=== PATIENT | male | born 1980 | race Caucasian/White ===

== ENCOUNTER 2024-10-12 14:58 | Emergency (ER) | payer OTHER, SELFPAY ==
--- OUTSIDE RECORDS SUMMARY | 2024-08-25 13:14 | XMS_ITS | Encounter Summary ---
Author Organization [facility] Address [address] [id number] Care Team Providers Care Grades 1 Thru 6 Home Teacher Name Role Phone Pcp, No Primary Care Provider Unavailabl e Reason for Visit * Auth/Cert (Routine) Specialty Diagnoses / Procedures Referred By Cyndee brandt Referred To Contact Diagnoses Acute renal failure (ARF) (CMS/HCC) Aaron Manley MD [address] [place] [address] Phone: tel: fax: PAV A Inpatient [address] [place] [address] Referral ID Status Reason Start Date Expiration Date Visits Re quested Visits Authorized [id number] 1 1 Encounter Details Date Type Department Care Team (Late st Contact Info) Description 08/25/2024 1:14 PM EDT 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 1314 In Room 1314 An Start Data 1323 An Induction The patient was reevaluated immediately before moderate or deep sedation use and before anesthesia induction. 1323 Proc Start 1323 Anesthesia Ready 1326 Payam cardioversion 1327 Proc Fin 1328 an stop data 1328 Out of Room 1330 Handoff to Receiving I compl eted my handoff to the receiving clinician during which we: 1. Identified the patient 2. Identified the responsible provider 3. Reviewed the pertinent medical history 4. Discussed the surgical course 5. Reviewed intra-op anesthesia management and issues during anesthesia 6. Set expectations for post-procedure period 7. Allowed opportunity for questions and acknowledgement of understanding. 1333 An Stop Meds Name Total lidocaine 2 % 60 mg propofol (Diprivan) injection 10 mg/mL 7 0 mg lactated Ringer's infusion 0 mL * Agents Name O2 N2O Air N2O Inspired N2O * Blood No blood administrations on file. Lines, Drains, and Airways Type Details Placement Removal Wound 08/11/24; 1151; Mouth 08/11/24 1 151 by Jessica Ortiz, inpatient auditor Cath Double Lumen 08/13/24; 1655; Yes; Chlorhexidine ; Yes; Yes; Injectable; Transillumination; 14.5; 23 cm; 1; Sutured; Tolerated well; X-ray; Right; Tunneled catheter; Jugular; Chest 08/13/24 1655 by Phyllis Mack Wound 08/15/24; 1400; Sacrum 08/15/24 1400 by Kathy Galdamez RN Peripheral IV Placement Date: 07/30/24; Placement Time: 2050; Catheter Size: 20 G; Orientation: Anterior, Right, Upper; Location: Arm; Site Prep: Chlorhexidine ; Local Anesth: None; Technique: Ultrasound guidance; Inserted by: Akin Prabhakar MD; Insertion Attempts: 1; Patient Tolerance: Tolerated well; Removal Date: 09/08/24; Removal Time: 1800; Removal Reason: Per protocol 07/30/242050 by Caren Vidal RN 09/08/24 1800 by Faith Pedersen Peripheral IV Placement Date: 08/01/24; Placement Time: 1456; Catheter Size: 20 G; Orientation: Distal, Left, Posterior; Location: Forearm; Site Prep: Alcohol; Technique: Anatomical landmarks; Inserted by: tania lane; Insertion Attempts: 2; Patient Tolerance: Tolerated well; Removal Date: 09/03/24; Removal Time: 2029; Removal Reason: Per patient/family request 08/01/[address] RN 09/03/242029 by Enoch Noel Male External Urinary Catheter 08/14/24; 1230; No; Moo Soto RN; Yes; External Catheter; 08/29/24; 192908/14/24 1230 by Izzy Soto 08/29/241929 by Kala Comer RN documented in this encounter Social History Tobacco Use Types Packs/Day Years Used Date Smoking Tobacco: Every Day Cigarettes 1 17.7 Started: 2007 Passive Smoke Exposure: Past Smokeless Tobacco: Never Alcohol Use Standard Drinks/Week Comments Defer 0 (1 standard drink = 0.6 oz pur e alcohol) Social Connection and Isolation Panel Answer Date Recorded In a typical week, how many times do you talk on the phone with family, friends, or neighbors? Patient unable to answer 05/07/2024 How often do you get togethe r with friends or relatives? Patient unable to answer 05/07/2024 How often do you attend [facility] or yarsani services? Patient unable to answer 05/07/2024 Do you belong to any clubs o r organizations such as cheondoism groups, unions, fraternal or athletic groups, or school groups? Patient unable to answer 05/07/2024 How often do you attend meet ings of the clubs or organizations you belong to? Patient unable to answer 05/07/2024 Are you , , di vorced, , never , or living with a partner? Patient unable to answer 05/07/2024 AUDIT-C Answer Date Recorded Q1: How often do you have a drink containing alcohol? Patient unable to answer 05/07/2024 Q2: How many drinks containi ng alcohol do you have on a typical day when you are drinking? Patient unable to answer Q3: How often do you have si x or more drinks on one occasion? Patient unable to answer 05/07/2024 Humiliation, Afraid, Rape, and Kick questionnair e Answer Date Recorded Within the last year, have y ou been afraid of your partner or ex-partner? No 07/31/2024 Within the last year, have y ou been humiliated or emotionally abused in other ways by your partner or ex-partner? No Within the last year, have y ou been kicked, hit, slapped, or otherwise physically hurt by your partner or ex-partner? No 07/31/2024 Within the last year, have y ou been raped or forced to have any kind of sexual activity by your partner or ex-partner? No 07/31/2024 Social Connection and Isolation Panel Answer Date Recorded In a typical week, how many times do you talk on the phone with family, friends, or neighbors? Never 07/31/2024 How often do you get together with friends or re latives? Never 07/31/2024 How often do you attend cheondoism or yarsani serv ices? Never 07/31/2024 Do you belong to any clubs o r organizations such as cheondoism groups, unions, fraternal or athletic groups, or school groups? No 07/31/2024 How often do you attend meet ings of the clubs or organizations you belong to? Never 07/31/2024 Are you , , di vorced, , never , or living with a partner? Never 07/31/2024 AUDIT-C Answer Date Recorded Q1: How often do you have a drink containing alcohol? Patient unable to answer 07/31/2024 Q2: How many drinks containi ng alcohol do you have on a typical day when you are drinking? Patient unable to answer Q3: How often do you have si x or more drinks on one occasion? Patient unable to answer 07/31/2024 Overall Financial Resource Strain (CARDIA) Answe r Date Recorded How hard is it for you to pa y for the very basics like food, housing, medical care, and heating? Very hard 07/31/2024 [facility] Occup[facility] ional [facility] - Occupational Stress Questionnaire Answer Date Recorded Do you feel stress - tense, restless, nervous, or anxious, or unable to sleep at night because your mind is troubled all the time - these days? To some extent 07/31/2024 Exercise Vital Sign Answer Date Recorde d On average, how many days pe r week do you engage in moderate to strenuous exercise (like a brisk walk)? 0 days 07/31/2024 On average, how many minutes do you engage in exercise at this level? 0 min 07/31/2024 Hunger Vital Sign Answer Date Recorded Within the past 12 months, y ou worried that your food would run out before you got the money to buy more. Often true 08/01/19 25 Within the past 12 months, t he food you bought just didn't last and you didn't have money to get more. Often true 07/31/2024 PRAPARE - Transportation Answer Date Re corded In the past 12 months, has l ack of transportation kept you from medical appointments or from getting medications? Yes 07/07 In the past 12 months, has l ack of transportation kept you from meetings, work, or from getting things needed for daily living? Yes 07/31/2024 Housing Stability Vital Sign Answer Philippe e Recorded Unable to Pay for Housing in the Last Year Not o n file 07/31/2024 Number of Times Moved in the Last Year Not on fi le 07/31/2024 At any time in the past 12 m [facility], were you homeless or living in a [place] [facility] [place] facility (including now)? Yes 07/31/2024 CAGE ASSESSMENT Answer Date Recorded Cage unable to access Not on file 03/16/2022 Cage max number of drinks Not on file 2022 Cage Beverages a week Not on file 03/16/2022 Have you ever felt you should CUT down on your d rinking? 0 03/16/2022 Have you been ANNOYED by people criticizing your drinking? 0 03/16/2022 Have you felt GUILTY about your drinking? 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 0 03/16/2022 CAGE Questionnaire Score 0 023 Utilities Answer Date Recorded In the past 12 months has th e electric, gas, oil, or water company threatened to shut off services in your home? No 07/31/2024 Sex and Gender Information Value Date Recorded Sex Assigned at Not on file Legal Sex Male 7:46 PM EDT Gender Identity Not on file Sexual Orientation Not on file documented as of this encounter Functional Status * Calculated C-SSRS Risk Score (Lifetime/Recent) Answer Date of Assessment Author No Risk Indicated 08/29/2024 8:00 AM EDT Migel Iqbal RN * Question Answer Date of Assessment Author 1. Wish to be (Past 1 Month) No 08/29/2024 8:00 AM EDT Sruthi Anaya RN 2. Non-Specific Active Suicidal Thoughts (Past 1 Month) No 08/29/2024 8:00 AM EDT Sruthi Anaya RN 6. Suicidal Behavior (Lifetime) No 08/29/2024 8:00 AM EDT Sruthi Anaya RN documented as of this encounter Miscellaneous Notes * Anesthesia Postprocedure Evaluation - Henrique Joe CRNA, DNP - 08/25/2024 1:33 PM EDT Patient: Noe Payne Anesthesia Type: general Vitals Value Taken Time BP 107/86 08/25/24 13:30 Temp 37.6 08/25/24 13:33 Pulse 72 08/25/24 13:32 Resp 14 08/25/24 13:33 SpO2 100 % 08/25/24 13:32 Vitals shown include unfiled device data. Anesthesia Post Evaluation Patient location during evaluation: PACU Patient participation: complete - patient participated Level of consciousness: awake Pain management: adequate (pain score 0-3) Airway patency: natural airway Cardiovascular status: acceptable, hemodynamically stable and blood pressure returned to baseline Respiratory status: acceptable, nasal cannula, spontaneous ventilation and unassisted Hydration status: acceptable Nausea/Vomiting: No There were no known notable events for this encounter. * Anesthesia Preprocedure Evaluation - Naveen Saenz MD - 08/25/2024 11:35 AM EDT No anesthesia staff entered. Patient: Noe Ellistcher HPI Noe Payne is a 44 y.o. male with body mass index is 30.24 kg/m??. w/ Atrial flutter now forCardioversion (N/A) Procedure Information Date/Time: 08/25/24 1155 Procedure: Cardioversion - to be done in lab with ANS Location: [facility] / [facility] Providers: Daniel Parsons MD IVDU, + hep C, decompensated cirrhosis, ESRD on HD, HFrEF (08/21 Echo with EF 23% and severe TR) Relevant Problems Cardio (+) Atrial flutter with rapid ventricular response (CMS/HCC) (+) Dyspnea (+) Hypertensive emergency GI (+) Ileus (CMS/HCC) /Renal (+) Acute renal failure (ARF) (CMS/HCC) (+) ESRD (end stage renal disease) (CMS/HCC) (+) Hepatitis C Pulmonary (+) Mycoplasma pneumonia ALLERGIES Allergies[1] NPO STATUS Date of Last Liquid: 08/11/24 Date of Last Solid: 08/11/24 Past Medical History[2] AIRWAY HISTORY Airway Detailed Review Displaying the 20 most recent records Date Difficult Airway Blade Size ETT Size C-L Class Final Type Intubation Method 05/15/24 No 4 7.5 grade I - full view of glottis endotracheal airway direct laryngoscopy MEDICATIONS Outpatient Current Outpatient Medications Medication Instructions naloxone (NARCAN) 4 mg, Nasal, As needed, Call 911. Give 4 mg (1 spray) into one nostril. Repeat every 2-3 minutes as needed, alternating nostrils, until medical assistance arrives. Scheduled Current Scheduled Medications[3] PRNs Current PRN Medications[4] SURGICAL HX: Surgical History[5] SOCIAL HX: Social History[6] OBJECTIVE DATA LABS Lab Results Component Value Date WBC 9.26 08/24/2024 HGB 8.8 (L) 08/24/2024 HCT 28.3 (L) 08/24/2024 MCV 88 08/24/2024 PLT 304 08/24/2024 Lab Results Component Value Date CALCIUM 7.7 (L) 08/24/2024 BUN 32 (H) 08/24/2024 CREATININE 4.10 (H) 08/24/2024 BCR 8 08/24/2024 NA 131 (L) 08/24/2024 K 4.6 08/24/2024 CL 98 08/24/2024 CO2 24 08/24/2024 Type and Screen No results found for: ABO Results from last 7 days Lab Units 08/23/24 0816 INR 1.5* Lab Results Component Value Date HGBA1C 5.3 07/31/2024 Lab Results Component Value Date PGLU 132 (H) 08/25/2024 GLUCOSE 99 08/24/2024 ABG Lab Results Component Value Date PHART 7.40 08/03/2024 KVC9ULL 31 (L) 08/03/2024 PO2ART 159 (H) 08/03/2024 SO2ART 99 (H) 08/03/2024 BEART -5.0 (L) 08/03/2024 DJD5QLE 25 08/04/2024 HCTART 23.0 (L) 08/03/2024 SODIUMART 135 (L) 08/03/2024 POTASSIUMART 3.9 08/03/2024 POCTCL 104 08/03/2024 POCGLU 103 (H) 08/03/2024 IONCALART 4.0 (L) 08/03/2024 LACTATE 0.7 08/04/2024 Lab Results Component Value Date PH 7.39 08/04/2024 PCO2 41 08/04/2024 PO2 141 (H) 08/04/2024 G1HILHVF 100 (H) 08/04/2024 BASEEXC -0.4 08/04/2024 HCTSYR 25.7 (L) 08/17/2024 KSYR 4.6 08/17/2024 CLSYR 97 08/17/2024 GLUSYR 91 08/17/2024 CAION 4.2 (L) 08/17/2024 LACTATE 0.7 08/04/2024 ECHO Echo, Adult Transthoracic (TTE) Limited Result Date: 08/21/2024 Pericardium: There is a trace pericardial effusion. There is no echocardiographic evidence of cardiac tamponade. Left Ventricle: The left ventricular systolic function is severely reduced. The LVEF as measured by Heart Model 3D volume is 23%. Right Ventricle: The right ventricular systolic functionis mildly reduced. Tricuspid Valve: There is moderate to severe tricuspid regurgitation. Mitral Valve: There is moderate mitral regurgitation with a central jet. Extracardiac: There are bilateral pleural effusions. Compared to the most recently available prior study, and allowing for differences inimage quality and technique, decreased ventricular function, worsen tricuspid regurgitation, pericardial effusion is smaller. ARF 2/2 ESRD on HD, A-flutter, bacteremia/sepsis, decompensated cirrhosis, OUD, pericardial effusion with drain removed 08/12 Echo, Adult Transthoracic (TTE) Limited Result Date: 08/03/2024 There is a moderate circumferential pericardial effusion. Pericardial effusion contains echogenic structures. There is no echocardiographic evidence of cardiac tamponade. Evidence includes no chambercollapse. Compared to the most recently available prior study, and allowing for differences in image quality and technique, pericardial effusion appears larger. Echo, Adult Transthoracic Complete Result Date: 07/31/2024 Left Ventricle: Based on the linear dimension and/or 2D volumes, the left ventricle is mildly dilated in size. There is normal left ventricular myocardial thickness and mass. The left ventricular systolic function is severely reduced. The LVEF is visually estimated at less than 20%. Unable to assess diastolic function due to tachycardia. There is global hypokinesis of the left ventricle. Right Ventricle: The right ventricle is normal in size. The right ventricular systolic function is normal. The estimated right ventricular systolic pressure is 46 mmHg. Right ventricular systolic pressure is mildly elevated (35-50mmHg). Tricuspid Valve: There is moderate tricuspid regurgitation. Pericardium: There is a small circumferential pericardial effusion. There is no echocardiographic evidence of cardiac tamponade. Evidence includes no chamber collapse, no respiratory transvalvular variation. Compared to the most recently available prior study, and allowing for differences in image quality and technique, EF is now severely reduced. Echo, Adult Transesophageal (CARMEN) Result Date: 05/15/2024 The left ventricular systolic function is normal. The LVEF is visually estimated at 50 - 55%. Thereis no atrial septal defect. No left atrial thrombus or mass present. All cardiac valves were reasonably well interrogated with 2D imaging and/or Doppler assessment and no significant valve regurgitation or stenosis is seen. There is no definite echocardiographic evidence of endocarditis. There is no recent study available for direct lyps-mc-lqix comparison. No echocardiographic abnormalities. Normal cardiac structures with normal LV function. Echo, Adult Transesophageal (CARMEN) Result Date: 05/13/2024 Unable to adequately sedate patient to perform exam. Can schedule with general anesthesia if clinically indicated. Echo, Adult Transthoracic Complete Result Date: 05/07/2024 Left Ventricle: The left ventricular systolic function is mildly reduced. The LVEF as measured by biplane volume is 50%. Unable to assess diastolic function due to tachycardia. No regional wall motion abnormalities are seen. Right Ventricle: The right ventricle is normal in size. The right ventricular systolic function is normal. Right ventricular systolic pressure is moderately elevated (50-70mmHg). The estimated right ventricular systolic pressure is 53 mmHg. Left Atrium: The interatrial septum is intact with no evidence for an atrial septal defect. The interatrial septum bows toward the RAconsistent with elevated left atrial pressure. IVC/SVC: Based on the IVC size and respiratory variation, the estimated right atrial pressure is 15mmHg. All cardiac valves were reasonably well interrogated with 2D imaging and/or Doppler assessment and no significant valve regurgitation or stenosis is seen. Compared to the most recently available prior study, and allowing for differences in image quality and technique, there has been a decline in the left ventricular systolic function. PFTs No results found for: GWT8AKN , SWN3DTFJ , FTJ0OED , FVCPRED BP Readings from Last 5 Encounters: 08/25/24 (!) 142/58 05/24/24 (!) 130/94 04/24/22 (!) 147/76 07/26/21 (!) 159/100 Physical Exam Airway Mallampati: II Mouth opening: normal TM distance: >3 FB Neck ROM: full Cardiovascular Rhythm: irregular Rate: tachycardia Dental Pulmonary Comments: Symmetric chest rise, moving air bilat, no increased wob Neurological Skin Musculoskeletal Extremities Anesthesia Plan ASA 4 Plan was reviewed with: FIELD ASSOCIATE Anesthesia technique(s) discussed with the patient/family: general Anesthesia plan agreed upon was: general Comment: Risks, benefits and alternatives for anesthesia discussed with patient. Patient understands the risks of anesthesia and wishes to proceed with anesthesia at this time. All questions were answered to patient's satisfaction. Anesthetic plan and risks discussed with patient. Anesthesia Evaluation [1] Allergies Allergen Reactions Erythromycin Other - please document in the comment field Gives him bad dreams [2] Past Medical History: Diagnosis Date Opioid abuse [3] [Transfer Hold] apixaban, 5 mg, Oral, BID [Transfer Hold] bacitracin, 1 packet, Topical, TID [Transfer Hold] buprenorphine, 8 mg, Sublingual, Daily [COMPLETED] buprenorphine, 4 mg, Sublingual, Once FOLLOWED BY [Transfer Hold] buprenorphine, 8 mg, Sublingual, BID [Transfer Hold] ergocalciferol, 50,000 Units, Oral, Weekly [Transfer Hold] hydrALAZINE, 25 mg, Oral, q8h PARESH AND [Transfer Hold] isosorbide dinitrate, 10 mg, Oral, q8h PARESH [Transfer Hold] pantoprazole, 40 mg, Oral, BID [Transfer Hold] polyethylene glycol, 17 g, Oral, BID [Transfer Hold] senna, 17.2 mg, Oral, BID [Transfer Hold] sevelamer carbonate, 1,600 mg, Oral, TID with meals [Transfer Hold] sodium chloride, 10 mL, Intravenous, q12h [Transfer Hold] sodium chloride, 10 mL, Intravenous, q12h [4] PRN medications: [Transfer Hold] acetaminophen, [Transfer Hold] bisacodyl, [Transfer Hold] glucose OR [Transfer Hold] dextrose 10 % OR [Transfer Hold] dextrose 10 % OR [Transfer Hold]glucagon (human recombinant), [Transfer Hold] dextrose, [Transfer Hold] hydrOXYzine pamoate, [Transfer Hold] melatonin, [Transfer Hold] metoclopramide, [Transfer Hold] simethicone, [Transfer Hold] sodium chloride, [Transfer Hold] sodium chloride, Insert peripheral IV AND Saline lock IV AND [Transfer Hold] sodium chloride AND [Transfer Hold] sodium chloride, [Transfer Hold] sodium chloride, [Transfer Hold] sodium chloride, Insert peripheral IV AND Saline lock IV AND [TransferHold] sodium chloride [5] Past Surgical History: Procedure Laterality Date ANKLE SURGERY THORACENTESIS [6] Social History Tobacco Use Smoking status: Every Day Current packs/day: 1.00 Average packs/day: 1 pack/day for 17.6 years (17.6 ttl pk-yrs) Types: Cigarettes Start date: 2007 Passive exposure: Past Smokeless tobacco: Never Vaping Use Vaping status: Some Days Substance Use Topics Alcohol use: Defer Drug use: Yes Types: IV, Marijuana, Methamphetamines Comment: fentanyl documented in this encounter Plan of Treatment Upcoming Encounters Date Type Department Care Team (Late st Contact Info) Description 10/13/2024 8:00 AM EDT Office Visit [facility] [address] [place] [address] 12/30/2024 3:40 PM EST Office Visit [facility] [address] [place] [address] Daniel Parsons MD [address] [place] [address] documented as of this encounter Goals Goal Patient Goal Type Associated Problems Recent Progress Patient-Stated? Author Autogenerat ed Goal Care Plan Autogenerated Problem No Sergo Pedroza Autogenerat ed Goal Care Plan Autogenerated Problem No Leisa Anaya, RN documented as of this encounter Visit Diagnoses Not on filedocumented in this encounter Administered Medications Inactive Administered Medications - up to 3 most recent administrations Medication Order MAR Action Action Date Dose Rate Site lactated Ringer's infusion Intravenous, Continuous PRN, Starting on Sun08/25/24 at 1318, Until Sun08/25/24 at 1333, Routine New Bag 08/25/2024 1:18 PM EDT lidocaine (Xylocaine) 2 % injection Infiltration, As needed, Starting on Sun08/25/24 at 1323, Until Sun08/25/24 at 1333, Routine, Anesthesia Intraprocedure Given 08/25/2024 1:23 PM EDT 60 mg propofol (Diprivan) injection Intravenous, As needed, Starting on Sun08/25/24 at 1323, Until Sun08/25/24 at 1333, Routine, Anesthesia Intraprocedure Given 08/25/2024 1:23 PM EDT 70 mg documented in this encounter Additional Health Concerns Active Problems Noted Date Diagnosed Date Autogenerated Problem 05/13/2024 Autogenerated Problem 08/05/2024 Infection Onset Date Last Indicated Resolved Time 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
--- OUTSIDE RECORDS SUMMARY | 2024-09-05 11:15 | XMS_ITS | Encounter Summary ---
Author Organization Healthcare Address [address] [place] [address] Care Team Providers Care Data Management Specialist Name Role Phone Pcp, No Primary Care Provider Unavailabl e Encounter Details Date Type Department Care Team (Late st Contact Info) Description 09/05/2024 11:15 AM EDT [facility] [address] [place] [address] Allie Kong, [address] [place] [address] Pain (Primary Dx) Social History Tobacco Use Types Packs/Day Years [...] answer 05/07/2024 How often do you attend [facility] or lutheran services? Patient unable to answer 05/07/2024 Do you belong to any clubs o r organizations such as pentecostal groups, unions, fraternal or athletic groups, or [...] Never 07/31/2024 How often do you attend pentecostal or lutheran serv ices? Never 07/31/2024 Do you belong to any clubs o r organizations such as pentecostal groups, unions, fraternal or athletic groups, or [...] medical care, and heating? Very hard 07/31/2024 [facility] - Occupational Stress Questionnaire Answer Date Recorded [...] any time in the past 12 m [facility], were you homeless or living in a detention (including now)? Yes 07/31/2024 CAGE ASSESSMENT Answer [...] drink first t terri in the morning ([employer]IV[employer]) to steady your nerves or to get rid of a hangover? 0 03/16/2022 CAGE Questionnaire Score 0 023 Utilities Answer Date Recorded In the past 12 months has e [employer], [employer], oil, or water [email or web address] threatened to shut off services in your home? No 07/31/2024 Sex and Gender Information Value Date Recorded Sex Assigned at Not on file Legal Sex Male 7:46 PM EDT Gender Identity Not on file Sexual Orientation Not on file documented as of this encounter Last Filed Vital Signs Vital Sign Reading Time Taken Comments Blood Pressure 140/88 09/08/2024 7:18 PM EDT Pulse 78 09/08/2024 7:18 PM EDT Temperature - - Respiratory Rate - - Oxygen Saturation - - Inhaled Oxygen Concentration - - Weight - - Height - - Body Mass Index - - documented in this encounter Functional Status * Calculated C-SSRS Risk Score (Lifetime/Recent) Answer Date of Assessment Author No Risk Indicated 09/08/2024 8:00 AM EDT Faith Pedersen * Question Answer Date of Assessment Author 1. Wish to be (Past 1 Month) No 025 8:00 AM EDT Faith Pedersen 2. Non-Specific Active Suici veronica Thoughts (Past 1 Month) No 09/08/2024 8:00 AM EDT Faith Pedersen 6. Suicidal Behavior (Lifetime) No 8:00 AM EDT Faith Pedersen documented as of this encounter Miscellaneous Notes * Progress Notes - Allie Kong, LEONILAS - 09/05/2024 11:15 AM EDT Adult Dentistry - [facility] Subjective: 44 y.o. male presents to clinic for multi EXTs as inpatient in [facility]. The patient was seen bedside in [facility] and he had pain on the lower left side. The pt is in-patient for end kidney failure. The pt had dialysis yesterday. Lovenox was held for 12hours prior to the ext. Objective: Visit Vitals BP (!) 140/88 Pulse 78 Smoking Status Every Day Medical and dental hx reviewed. No changes Problem List[1] Medications Ordered Prior to Encounter[2] Past Medical History[3] Surgical History[4] Social Drivers of Health Food Insecurity: Food Insecurity Present (07/31/2024) Hunger Vital Sign Worried About Running Out of Food in the Last Year: Often true Ran Out of Food in the Last Year: Often true Alcohol Use: Patient Unable To Answer (07/31/2024) AUDIT-C Frequency of Alcohol Consumption: Patient unable to answer Average Number of Drinks: Patient unable to answer Frequency of Binge Drinking: Patient unable to answer Housing Stability: High Risk (07/31/2024) Housing Stability Vital Sign Unable to Pay for Housing in the Last Year: Not on file Number of Times Moved in the Last Year: Not on file Homeless in the Last Year: Yes Tobacco Use: High Risk (05/14/2024) Patient History Smoking Tobacco Use: Every Day Smokeless Tobacco Use: Never Passive Exposure: Past Transportation Needs: Unmet Transportation Needs (07/31/2024) PRAPARE - Transportation Lack of Transportation (Medical): Yes Lack of Transportation (Non-Medical): Yes Depression: Not on file Utilities: Not At Risk (07/31/2024) Utilities Threatened with loss of utilities: No Stress: Stress Concern Present (07/31/2024) [facility] [place] [facility] - Occupational Stress Questionnaire Feeling of Stress: To some extent Intimate Partner Violence: Not At Risk (07/31/2024) Humiliation, Afraid, Rape, and Kick questionnaire Fear of Current or Ex-Partner: No Emotionally Abused: No Physically Abused: No Sexually Abused: No Physical Activity: Inactive (07/31/2024) Exercise Vital Sign Days of Exercise per Week: 0 days Minutes of Exercise per Session: 0 min Social Connections: Socially Isolated (07/31/2024) Social Connection and Isolation Panel Frequency of Communication with Friends and Family: Never Frequency of Social Gatherings with Friends and Family: Never Attends Jain Services: Never Active Member of Clubs or Organizations: No Attends Club or Organization Meetings: Never Marital Status: Never Financial Resource Strain: High Risk (07/31/2024) Overall Financial Resource Strain (CARDIA) Difficulty of Paying Living Expenses: Very hard Allergies[5] Dental Exam: Dental Soft Tissue Exam EOE:WNL IOE: remaining root # 9, # 17,#29, # 31 and # 32 Non-restorable # 19 gross decay DOBL. Non-restorable # 4 broken lingual cusp OLMD Assessment: ASA Class: ASA 4 - Patient with severe systemic disease that is a constant threat to life Mallampati: Class III: Soft and hard palate and base of the uvula are visibile., BMI: There is no height or weight on file to calculate BMI. Tx-Rendered today: Procedure, risks, benefits, alternatives and complication discussed with patient. Consent was obtained for ext #4, #9, #17, #19, #29, #31, and #32. Pt was given Lidocaine 2% - Epi 1:100.000 UI: 136 mg Lidocaine w/ 0.068 mg epi (4 carpules) Septocaine 4% - Epi 1:100.000 UI: 136 mg Septocaine w/ 0.034 mg epi (2 carpules) via JATIN, Infiltration, and Palatal. Soft tissue reflected. #4, #9, #17, #19, #29, #31, and #32 was elevated and delivered with forceps. Socket# 4, # 9, # 17, # 19 , #29, # 31 and # 32 was curetted and irrigated with sterile water. No sinus communication detected. Absorbable Gelatin Sponge was seated in socket # 4, # 9, # 17, # 19 , #29, # 31 and # 32 and vicryl 3/0 was sutured on # 4, # 9, # 17, # 19 , #29, # 31 and # 32. Pt was given verbal and written post-op instructions. Estimated blood loss: Minimal Pt instructed to take OTC ibuprofen and acetaminophen for pain. Pt tolerated procedure well and discharged home with good hemostasis. Pt was discharged with good hemostasis. The pt was discharged back to the hospital and the medical team was updated. NV: RTC for PRN [1] Patient Active Problem List Diagnosis Sepsis (CMS/HCC) Swelling of joint of left wrist Opioid use disorder, severe, dependence (CMS/HCC) Hypertensive emergency Mitral valve mass Mycoplasma pneumonia ESRD (end stage renal disease) (CMS/HCC) Dyspnea Hepatitis C Smoker Marijuana abuse Ileus (CMS/HCC) Chronic bilateral pleural effusions Anemia Acute renal failure (ARF) ([facility]) Pericardial effusion Bacteremia Hyperkalemia Atrial flutter with rapid ventricular response ([facility]) Heart failure, systolic, with acute decompensation ([facility]) MR (mitral regurgitation) TR (tricuspid regurgitation) [2] Current Outpatient Medications on File Prior to Visit Medication Sig Dispense Refill apixaban (Eliquis) 5 MG tablet Take 1 tablet by mouth 2 times a day. 60 tablet 1 buprenorphine (Subutex) [address] 3 tablets under the tongue daily for 15 days. 45 tablet 0 naloxone (Narcan) 4 mg/0.1 mL nasal spray 1. Give 1 spray in nostril for no/slow breathing or cannot wake after opioid use 2. Call 911 3. Repeat in other nostril if symptoms continue Call 911. Give 4mg (1 spray) into one nostril. Repeat every 2-3 minutes as needed, alternating nostrils, until medical assistance arrives. 1 each 11 [DISCONTINUED] naloxone (Narcan) 4 mg/0.1 mL nasal spray 1. Give 1 spray in nostril for no/slow breathing or cannot wake after opioid use 2. Call 911 3. Repeat in other nostril if symptoms continue Call 911. Give 4 mg (1 spray) into one nostril. Repeat every 2-3 minutes as needed, alternating nostrils, until medical assistance arrives. 1 each 11 Current Facility-Administered Medications on File Prior to Visit Medication Dose Route Frequency Provider Last Rate Last Admin acetaminophen (Tylenol) tablet 500 mg 500 mg Oral q6h [facility] Fe Emery MBBS 500 mg at 09/08/24 1702 apixaban (Eliquis) tablet 5 mg 5 mg Oral BID Fe Emery MBBS 5 mg at 09/08/24 0829 bacitracin (1g packet) ointment 1 packet 1 packet Topical PRN Iglesia Prasad MD bisacodyl (Dulcolax) suppository 10 mg 10 mg Rectal Daily PRN Lizzy Verma MD buprenorphine (Subutex) SL tablet 24 mg 24 mg Sublingual Daily Leisa Campbell APRN 24 mg at 09/08/24 0829 darbepoetin griselda (Aranesp) injection 40 mcg 0.45 mcg/kg Subcutaneous Weekly (2099) Fe Emery MBBS 40 mcg at 09/02/242030 glucose (Glutose) 40 % oral gel 15-30 grams of glucose 15-30 grams of glucose Sublingual q15 min PRN Oleg Jara DO Or dextrose 10 % (D10W) bolus 125 mL 125 mL Intravenous q15 min PRN Oleg Jara DO 500 mL/hr at 08/13/24 1226 125 mL at 08/13/24 1226 Or dextrose 10 % (D10W) bolus 250 mL 250 mL Intravenous q15 min PRN Oleg Jara DO Or glucagon (human recombinant) injection 1 mg 1 mg Intramuscular q15 min PRN Oleg Jara DO dextrose 50 % solution 25 g 25 g Intravenous PRN Antonio Torres MD 12.5 g at 08/07/24 1207 ergocalciferol (Vitamin D-2) capsule 50,000 Units 50,000 Units Oral Weekly Fe Emery MBBS50,000 Units at 08/28/24 1251 hydrALAZINE (Apresoline) tablet 25 mg 25 mg Oral TID Iglesia Prasad MD 25 mg at 09/08/24 1700 And isosorbide dinitrate (Isordil) tablet 10 mg 10 mg Oral 3 times per day Iglesia Prasad MD 10 mg at 09/08/24 1700 hydrOXYzine pamoate (Vistaril) capsule 50 mg 50 mg Oral q6h PRN Fe Emery MBBS 50 mg at 08/29/24 0856 magnesium oxide (Mag-Ox) tablet 400 mg 400 mg Oral Daily Fe Emery MBBS 400 mg at 09/08/24 0829 melatonin tablet 6 mg 6 mg Oral Nightly PRN Deborah Olguin MD 6 mg at 09/05/24 2116 metoclopramide (Reglan) tablet 2.5 mg 2.5 mg Nasogastric q6h PRN Lizzy Verma MD 2.5 mg at 09/02/242037 metoprolol succinate XL (Toprol-XL) 24 hr tablet 200 mg 200 mg Oral Daily Fe Emery MBBS 200 mg at 09/08/24 0828 ondansetron ODT (Zofran-ODT) disintegrating tablet 4 mg 4 mg Oral q6h PRN Kash Nieves MD Or ondansetron (Zofran) injection 4 mg 4 mg Intravenous q6h PRN Kash Nieves MD Or ondansetron (Zofran) 4 MG/5ML solution 4 mg 4 mg Oral q6h PRN Kash Nieves MD oxyCODONE (Roxicodone) immediate release tablet 5 mg 5 mg Oral q6h PRN Fe Emery MBBS 5 mg at 09/08/24 1231 pantoprazole (Protonix) EC tablet 40 mg 40 mg Oral BID Lizzy Verma MD 40 mg at 09/08/24 0830 polyethylene glycol (Miralax) packet 17 g 17 g Oral Daily PRN Fe Emery MBBS polyethylene glycol (Miralax) packet 17 g 17 g Oral BID Fe Emery MBBS senna (Senokot) tablet 17.2 mg 17.2 mg Oral Nightly PRN Fe Emery MBBS senna (Senokot) tablet 17.2 mg 17.2 mg Oral BID Fe Emery MBBS 17.2 mg at 09/08/24 0829 sevelamer carbonate (Renvela) tablet 1,600 mg 1,600 mg Oral TID with meals Lizzy Verma MD 1,600 mg at 09/08/24 1701 simethicone (Mylicon) chewable tablet 80 mg 80 mg Oral q6h PRN Fe Emery MBBS 80 mg at 08/14/24 1506 sodium chloride 0.9 % flush 10 mL 10 mL Intravenous q12h Jeanmarie Arrieta MD 10 mL at 09/08/24 0830 sodium chloride 0.9 % flush 10 mL 10 mL Intravenous q1h PRN Jeanmarie Arrieta MD sodium chloride 0.9 % flush 10 mL 10 mL Intravenous q12h Iglesia Hutchins MD 10 mL at 09/08/24 0830 sodium chloride 0.9 % flush 10 mL 10 mL Intravenous q1h PRN Iglesia Hutchins MD sodium chloride 0.9 % flush 20 mL 20 mL Intravenous q1h PRN Jeanmarie Arrieta MD sodium chloride 0.9 % flush 20 mL 20 mL Intravenous q1h PRN Igleisa Hutchins MD [DISCONTINUED] alteplase (Cathflo Activase) injection 4 mg 4 mg Intracatheter PRN Nicki George APRN, DNP [DISCONTINUED] sodium citrate anticoagulant 4 % flush 6 mL 6 mL Intracatheter PRN ArjuntNicki APRN, DNP 6 mL at 09/06/24 1721 [3] Past Medical History: Diagnosis Date Opioid abuse [4] Past Surgical History: Procedure Laterality Date ANKLE SURGERY THORACENTESIS [5] Allergies Allergen Reactions Erythromycin Other - please document in the comment field Gives him bad dreams Cosigned by Penny Harden DMD at 09/16/2024 9:43 PM EDT Associated attestation - Penny Harden DMD - 09/16/2024 9:43 PM EDT I have reviewed the resident's dental note. I was physically present in the clinic and immediately available throughout the entire procedure to provide direct supervision. documented in this encounter Plan of Treatment Upcoming Encounters Date Type Department Care Team (Late st Contact Info) Description 10/13/2024 8:00 AM EDT Office Visit [facility] Medicine Specialties [address] [place] [address] 12/30/2024 3:40 PM EST Office Visit [facility] [address] [facility] [place] [address] Daniel Parsons MD [address] [place] [id number] documented as of this encounter Goals Goal Patient Goal Type Associated Problems Recent Progress Patient-Stated? Author Autogenerat ed Goal Care Plan Autogenerated Problem S[place]o [place] Autogenerat ed Goal Care Plan Autogenerated Problem No Leisa Anaya RN documented as of this encounter Procedures Procedure Name Priority Date/Time Associated Diagnosis Comments 32 EXTRACTION, ERUPTED TOOTH OR EXPOSED ROOT (ELEVATION AND/OR FORCEPS REMOVAL) Routine 09/05/2024 11:15 AM EDT Pain 31 EXTRACTION, ERUPTED TOOTH OR EXPOSED ROOT (ELEVATION AND/OR FORCEPS REMOVAL) Routine 09/05/2024 11:15 AM EDT Pain 29 EXTRACTION, ERUPTED TOOTH OR EXPOSED ROOT (ELEVATION AND/OR FORCEPS REMOVAL) Routine 09/05/2024 11:15 AM EDT Pain 19 EXTRACTION, ERUPTED TOOTH OR EXPOSED ROOT (ELEVATION AND/OR FORCEPS REMOVAL) Routine 09/05/2024 11:15 AM EDT Pain 17 EXTRACTION, ERUPTED TOOTH OR EXPOSED ROOT (ELEVATION AND/OR FORCEPS REMOVAL) Routine 09/05/2024 11:15 AM EDT Pain 4 EXTRACTION, ERUPTED TOOTH OR EXPOSED ROOT (ELEVATION AND/OR FORCEPS REMOVAL) Routine 09/05/2024 11:15 AM EDT Pain 9 EXTRACTION, ERUPTED TOOTH OR EXPOSED ROOT (ELEVATION AND/OR FORCEPS REMOVAL) Routine 09/05/2024 11:15 AM EDT Pain LIMITED ORAL EVALUATION - PROBLEM FOCUSED Routine 09/05/2024 11:15 AM EDT Pain documented in this encounter Visit Diagnoses Diagnosis Pain- Primary Generalized pain documented in this encounter Additional Health Concerns Active Problems Noted Date Diagnosed Date Autogenerated Problem 05/13/2024 Autogenerated Problem 08/05/2024 Infection Onset Date Last Indicated Resolved Time 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
--- OUTSIDE RECORDS SUMMARY | 2024-09-24 21:32 | XMS_ITS | Encounter Summary ---
Author Organization Healthcare Address [address] [place] [address] Care Team Providers Care Tester Food Products Name Role Phone Pcp, No Primary Care Provider Unavailabl e Reason for Visit * Reason Comments Abnormal Lab Encounter Details Date Type Department Care Team (Late st Contact Info) Description 09/24/2024 9:32 PM EDT - 09/24/2024 11:03 PM EDT Emergency [facility] Emergency Department [address] [place] [address] ESRD on dialysis ([facility]) (Primary Dx); Chronic anemia Discharge Disposition: Home or Self Care Social History Tobacco Use Types Packs/Day Years [...] answer 05/07/2024 How often do you attend chur or druze services? Patient unable to answer 05/07/2024 Do you belong to any clubs o r organizations such as hindu groups, unions, fraternal or athletic groups, or [...] Never 07/31/2024 How often do you attend hindu or druze serv ices? Never 07/31/2024 Do you belong to any clubs o r organizations such as hindu groups, unions, fraternal or athletic groups, or [...] medical care, and heating? Very hard 07/31/2024 [facility] - Occupational Stress Questionnaire Answer Date [...] any time in the past 12 m [facility], were you homeless or living in a assisted (including now)? Yes 07/31/2024 CAGE ASSESSMENT Answer [...] drink first t terri in the morning ([employer]) to steady your nerves or to get rid of a hangover? 0 03/16/2022 CAGE Questionnaire Score 0 023 Utilities Answer Date Recorded In the past 12 months has e [employer], gas, oil, or water [employer] threatened to shut off services in your home? No 07/31/2024 Sex and Gender Information Value Date Recorded Sex Assigned at Not on file Legal Sex Male 7:46 PM EDT Gender Identity Not on file Sexual Orientation Not on file documented as of this encounter Last Filed Vital Signs Vital Sign Reading Time Taken Comments Blood Pressure 126/91 09/24/2024 10:55 PM EDT Pulse 88 09/24/2024 10:55 PM EDT Temperature 36.7 C (98.1 F) 09/24/2024 10:55 PM EDT Respiratory Rate 17 09/24/2024 10:55 PM EDT Oxygen Saturation 98% 09/24/2024 10:55 PM EDT Inhaled Oxygen Concentration - - Weight - - Height 182.9 cm (6') 09/24/2024 8:27 PM EDT Body Mass Index - - documented in this encounter Functional Status * Calculated C-SSRS Risk Score (Lifetime/Recent) Answer Date of Assessment Author No Risk Indicated 09/24/2024 10:44 PM EDT Cristian Ontiveros RN * Question Answer Date of Assessment Author 1. Wish to be (Past 1 Month) No 09/24/2024 10:44 PM EDT Cristian Stokes RN 2. Non-Specific Active Suici veronica Thoughts (Past 1 Month) No 09/24/2024 10:44 PM EDT Maryan Stokes RN 6. Suicidal Behavior (Lifetime) No 10:44 PM EDT Cristian Stokes, CAMILO documented as of this encounter Discharge Instructions * Discharge Instructions* Chelly Mendoza PA - 09/24/2024 10:48 PM EDT You have been evaluated and your workup does not indicate need for blood transfusion at this time Keep scheduled dialysis tomorrow Please return to ED if your symptoms worsen, change in location, change in severity, new symptoms develop, or if you become concerned for your health. documented in this encounter Medications at Time of Discharge apixaban (Eliquis) 5 MG tablet Take 1 tablet by mouth 2 times a day. 60 tablet 1 09/04/2024 5 ergocalciferol (Drisdol) 1.25 MG (59369 UT) capsule Take 1 capsule by mouth 1 time per week. 5 capsule 09/10/2024 5 hydrALAZINE (Apresoline) 25 MG tablet Take 1 tablet by mouth 3 times a day. 90 tablet 09/10/2024 metoprolol tartrate (Lopressor) 100 MG tablet Take 2 tablets by mouth daily. 60 tablet 09/10/2024 naloxone (Narcan) 4 mg/0.1 mL nasal spray 1. Give 1 spray in nostril for no/slow breathing or cannot wake after opioid use 2. Call 911 3. Repeat in other nostril if symptoms continue Call 911. Give 4 mg (1 spray) into one nostril. Repeat every 2-3 minutes as needed, alternating nostrils, until medical assistance arrives. 1 each 11 09/04/2024 6 magnesium oxide (Mag-Ox) 400 (240 Mg) MG tablet Take 1 tablet by mouth daily. 30 tablet 09/10/2024 5 pantoprazole (Protonix) 40 MG EC tablet Take 1 tablet by mouth daily before breakfast. Do not crush, chew, or split. 30 tablet 09/10/2024 5 sevelamer (Renagel) 800 MG tablet Take 2 tablets by mouth 3 times a day with meals. Swallow tablet whole; do not crush, break, or chew. 180 tablet 09/10/2024 5 documented as of this encounter Miscellaneous Notes * ED Provider Notes - Chelly Mendoza PA - 09/24/2024 8:15 PM EDT Images from the original note were not included. - HPI Chief Complaint Patient presents with Abnormal Lab The patient is a 44 yo WM with a history of ESRD on HD (//Sun), decompensated liver cirrhosis, Grade D esophagitis, DU, heart failure, DVT and opioid abuse that presents after being called from dialysis center, stating his Hgb was found to be 5.5 gm yesterday. He complains since his most recent discharge from the hospital 09/08/24 when having UGI bleed requiring blood transfusion and severe sepsis he remains generally weak and fatigued, still not ambulating well. However, he denies black stools, vomiting or abdominal pain. He otherwise denies further complaints at this time. History provided by: Patient and medical records Patient History Past Medical History[1] Surgical History[2] Family History[3] Social History[4] Allergies: Allergies[5] Physical Exam ED Triage Vitals [09/24/242026] Temp Heart Rate Resp BP 36.7 ??C (98 ??F) 99 22 115/80 SpO2 Temp Source Heart Rate Source Patient Position 97 % Oral -- Sitting BP Location FiO2 (%) Left arm -- Physical Exam Vitals and nursing note reviewed. Exam conducted with a ballast cleaning machine operator present (family). Constitutional: Appearance: Normal appearance. He is ill-appearing (chronically ill appearing). HENT: Head: Normocephalic and atraumatic. Cardiovascular: Rate and Rhythm: Normal rate and regular rhythm. Heart sounds: Normal heart sounds. Pulmonary: Effort: Pulmonary effort is normal. Breath sounds: Normal breath sounds. Abdominal: General: There is no distension. Palpations: Abdomen is soft. Tenderness: There is no abdominal tenderness. Musculoskeletal: Cervical back: Neck supple. Skin: Capillary Refill: Capillary refill takes less than 2 seconds. Neurological: Mental Status: He is alert and oriented to person, place, and time. Psychiatric: Mood and Affect: Mood normal. Hira Coma Scale Score: 15 ED Course & MDM Lab Results Labs Reviewed CBC WITH AUTO DIFFERENTIAL - Abnormal Result Value WBC Count 5.62 RBC Count 2.74 (*) HGB 7.4 (*) HCT 24.1 (*) Platelet Count 231 MCV 88 MCH 27.0 MCHC 30.7 RDW 15.5 (*) MPV 8.9 nRBC 0.0 Differential Type Automated Neutrophils % 55 Lymphocytes % 29 Monocytes % 11 Eosinophils % 4 Basophils % 1 Immature Granulocytes % 0 Neutrophils Absolute 3.12 Lymphocytes Absolute 1.63 Monocytes Absolute 0.59 Eosinophils Absolute 0.22 Basophils Absolute 0.04 Immature Granulocytes Absolute 0.02 Narrative: Therapeutic decision making should be based on absolute values, rather than percentages. PROTHROMBIN TIME(PT) / INR - Abnormal Prothrombin Time 14.9 (*) INR 1.1 Narrative: OPTIMAL INR RANGES FOR PATIENT ON ORAL ANTICOAGULANT THERAPY Prevention of venous thromboembolism INR 2.0 to 3.0 In patients with heart disease: Atrial fibrillation INR 2.0 to 3.0 Valvular heart disease INR 2.0 to 3.0 Tissue heart valves INR 2.0 to 3.0 Mechanical prosthetic valves INR 2.5 to 3.5 Prevention of recurrent AR INR 2.5 to 3.5 COMPREHENSIVE METABOLIC PANEL, PLASMA - Abnormal Glucose, Plasma 103 (*) BUN, Plasma 24 (*) Creatinine, Plasma 4.09 (*) BUN/Creatinine Ratio 6 Sodium, Plasma 139 Potassium, Plasma 4.0 Chloride, Plasma 98 CO2, Plasma 25 Anion Gap 16 Total Calcium, Plasma 8.4 (*) Total Protein 7.2 Albumin, Plasma 3.1 (*) AST, Plasma 10 ALT, Plasma <5 (*) Alkaline Phosphatase, Plasma 105 Total Bilirubin, Plasma 0.2 eGFRcr 17.8 MAGNESIUM, PLASMA - Normal Magnesium, Plasma 2.0 TYPE AND SCREEN ABO/Rh B Positive Antibody Screen Negative Specimen Expiration 09/27/2024 23:59 Imaging Results No orders to display - Assessment: 44 y.o. male presents to ED with complaint of abnormal lab, Hgb 5.5 at dialysis reportedly. It should be noted that the chronic conditions includes ESRD on HD (T//Sun), decompensated liver cirrhosis, Grade D esophagitis, DU, heart failure, DVT and opioid abuse , which currently is not at goal therapy. This complicates the clinical picture because it Comorbidities: may be exacerbating symptoms and increases the risk for morbidity Differential Diagnosis: ABLA, anemia of chronic disease, GI bleed In order to fully explore the differential diagnosis the following treatments and tests were ordered: All Other Orders Ordered Status Ordering Provider 09/24/248 Type and screen Start now Final result CHELLY MENDOZA 09/24/242143 CBC w/diff STAT Final result CHELLY MENDOZA 09/24/242143 PT-INR STAT Final result CHELLY MENDOZA 09/24/242143 CMP STAT Final result CHELLY MENDOZA 09/24/242143 Magnesium STAT Final result CHELLY MENDOZA 09/24/242014 EKG now - STAT (adult) Once Preliminary result CECE MILLER ED Course as of 09/25/24436Sep 24, [id number] Patient updated on lab findings, no need for blood transfusion at this time. Reviewed this plan with ED Attending, Dr. Miller who agrees with no blood transfusion at this time. [LE] 1990 At time of discharge, RN states patient requesting refill of Suboxone until he goes to Suboxone clinic next week. After reviewing dispense report, it appears he has been out of Suboxone >1 week with no signs of withdrawal. Patient advised these will not be prescribed from the ED tonight. [LE] ED Course User Index [LE] Chelly Mendoza PA Clinical Impressions as of 09/25/24436 ESRD on dialysis ([facility]) Chronic anemia Social Determinates of Health Risks (including Economic Stability, Education and level of understanding, Healthcare access and quality and concerning social factors): Acute or chronic drug and alcohol use Ultimately, this patient Was discharged Home as Hgb was 7.4, not currently needing transfusion and no sign of GI bleed or other complaints at this time. (Discharge) The primary encounter diagnosis was ESRD on dialysis ([facility]). A diagnosis of Chronic anemia was also pertinent to this visit. . Patient was counseled on the diagnoses. Discharge medications if any are listed below. Listed medications are thought be either curative for listed diagnosesor will help control ongoing symptoms. Patient is requested to follow up with Patient's Primary Care Provider and Nephrology in order to obtain routine follow-up and specialty care. Instructions on follow up as well as precautions to return to the ER provided verbally by the EM provider, as well aswritten in patients discharge education packet. ED Prescriptions None Discharge Instructions You have been evaluated and your workup does not indicate need for blood transfusion at this time Keep scheduled dialysis tomorrow Please return to ED if your symptoms worsen, change in location, change in severity, new symptoms develop, or if you become concerned for your health. Disposition Discharge AVS (Amharic Snapshot) - Printed 09/24/2024 - [1] Past Medical History: Diagnosis Date Opioid abuse [2] Past Surgical History: Procedure Laterality Date ANKLE SURGERY THORACENTESIS [3] No family history on file. [4] Tobacco Use Smoking status: Every Day Current packs/day: 1.00 Average packs/day: 1 pack/day for 17.6 years (17.6 ttl pk-yrs) Types: Cigarettes Start date: 2007 Passive exposure: Past Smokeless tobacco: Never Vaping Use Vaping status: Some Days Substance Use Topics Alcohol use: Defer Drug use: Yes Types: IV, Marijuana, Methamphetamines Comment: fentanyl [5] Allergies Allergen Reactions Erythromycin Other - please document in the comment field Gives him bad dreams Chelly Mendoza PA 09/25/24 0437 Cosigned by Cece Miller MD at 09/25/2024 7:38 AM EDT Associated attestation - Cece Miller MD - 09/25/2024 7:38 AM EDT The patient was seen only by Advanced Practice Provider (CALIN), and care was reviewed with me. * ED Triage Notes - Joanie Cabrales RN - 09/24/2024 8:15 PM EDT To ED via POV with brother in law c/o chris H&H; bloodwork drawn yesterday. Pt is on dialysis andhad to have blood transfusion last week as well (not first infusion). Dialysis through chest port; Sun//--none missed. Pt also had an additional dialysis visit on Sunday. Pt states he can produce some urine intermittently. Pt adds he is out of his suboxone. documented in this encounter Plan of Treatment Upcoming Encounters Date Type Department Care Team (Late st Contact Info) Description 10/13/2024 8:00 AM EDT Office Visit [facility] [address] [place] [address] 12/30/2024 3:40 PM EST Office Visit [facility] [address] [place] [address] Daniel Parsons MD [address] [place] [address] documented as of this encounter Goals Goal Patient Goal Type Associated Problems Recent Progress Patient-Stated? Author Autogenerat ed Goal Care Plan Autogenerated Problem No Sergo Pedroza Autogenerat ed Goal Care Plan Autogenerated Problem No Leisa Anaya, RN documented as of this encounter Procedures Procedure Name Priority Date/Time Associated Diagnosis Comments PROTHROMBIN TIME(PT) / INR STAT 09/24/2024 10:06 PM EDT CBC WITH AUTO DIFFERENTIAL STAT 09/24/2024 10:06 PM EDT TYPE AND SCREEN STAT 09/24/2024 10:06 PM EDT MAGNESIUM, PLASMA STAT 09/24/2024 10: 06 PM EDT COMPREHENSIVE METABOLIC PANEL, PLASMA STAT 09/24/2024 10:06 PM EDT ECG ADULT STAT 09/24/2024 8:34 PM EDT documented in this encounter Results * Magnesium (09/24/2024 10:06 PM EDT) Magnesium, Plasma 2.0 1.9 - 2.4 mg/dL 09/24/2024 10:32 PM EDT [facility] Blood Venous blood specimen / Unknown Venipuncture / Unknown 09/24/2024 10:06 PM EDT 09/24/2024 10:12 PM EDT us Chelly VYAS LAB BLOOD ORDERABLES Final R esult [facility] [address] [place] [address] * (ABNORMAL) CMP (09/24/2024 10:06 PM EDT) Glucose, Plasma 103(H) 74 - 99 mg/dL 09/24/2024 10:32 PM EDT [facility] BUN, Plasma 24(H) 7 - 21 mg/dL 09/24/2024 10:32 PM EDT [facility] Creatinine, Plasma 4.09(H) 0.70 - 1.20 mg/dL 09/24/2024 10:32 PM EDT [facility] BUN/Creatinine Ratio 6 09/24/2024 10:32 PM EDT [facility] Sodium, Plasma 139 136 - 145 mmol/L 09/24/2024 10:32 PM EDT [facility] Potassium, Plasma 4.0 3.6 - 4.9 mmol/L 09/24/2024 10:32 PM EDT [facility] Chloride, Plasma 98 97 - 107 mmol/L 09/24/2024 10:32 PM EDT [facility] CO2, Plasma 25 22 - 29 mmol/L 09/24/2024 10:32 PM EDT [facility] Anion Gap 16 6 - 16 mmol/L 09/24/2024 10:32 PM EDT [facility] Total Calcium, Plasma 8.4(L) 8.9 - 10.2 mg/dL 09/24/2024 10:32 PM EDT [facility] Total Protein 7.2 6.3 - 7.9 g/dL 09/24/2024 10:32 PM EDT [facility] Albumin, Plasma 3.1(L) 3.5 - 5.2 g/dL 09/24/2024 10:32 PM EDT [facility] AST, Plasma 10 10 - 50 U/L 09/24/2024 10:32 PM EDT [facility] ALT, Plasma <5(L) 10 - 50 U/L 09/24/2024 10:32 PM EDT [facility] Alkaline Phosphatase, Plasma 105 40 - 115 U/L 09/24/2024 10:32 PM EDT [facility] Total Bilirubin, Plasma 0.2 0.2 - 1.1 mg/dL 09/24/2024 10:32 PM EDT [facility] eGFRcr 17.8 mL/min/1.7 3m*2 09/24/2024 10:32 PM EDT [facility] Comment:Reported eGFRcr in m L/min/1.73m2 is based the CKD-EPI 2020 equation that does not use a race coefficient. Blood Venous blood specimen / Unknown Venipuncture / Unknown 09/24/2024 10:06 PM EDT 09/24/2024 10:12 PM EDT us Chelly VYAS LAB BLOOD ORDERABLES Final R esult Performing Organization Address City/[facility]/ZIP Co de Phone Number [facility] [address] [place] [address] * (ABNORMAL) PT-INR (09/24/2024 10:06 PM EDT) Pathologist [facility] Prothrombin Time 14.9(H) 12.0 - 14.3 sec 09/24/2024 10:24 PM EDT [facility] INR 1.1 0.9 - 1.1 09/24/2024 10:24 PM EDT [facility] Blood Venous blood specimen / Unknown Venipuncture / Unknown 09/24/2024 10:06 PM EDT 09/24/2024 10:11 PM EDT Narrative [facility] - 09/24/2024 10:24 PM EDT OPTIMAL INR RANGES FOR PATIENT ON ORAL ANTICOAGULANT THERAPY Prevention of venous thromboembolism INR 2.0 to 3.0 In patients with heart disease: Atrial fibrillation INR 2.0 to 3.0 Valvular heart disease INR 2.0 to 3.0 Tissue heart valves INR 2.0 to 3.0 Mechanical prosthetic valves INR 2.5 to 3.5 Prevention of recurrent AR INR 2.5 to 3.5 us Chelly VYAS LAB BLOOD ORDERABLES Final R esult Performing Organization Address City/[facility]/ZIP Co de Phone Number [facility] [address] [place] [address] * (ABNORMAL) CBC w/diff (09/24/2024 10:06 PM EDT) WBC Count 5.62 3.70 - 10.30 10*3/uL LAB HEMATOLOGY METHOD 09/24/2024 10:15 PM EDT [facility] RBC Count 2.74(L) 4.60 - 6.10 10*6/uL LAB HEMATOLOGY METHOD 09/24/2024 10:15 PM EDT [facility] HGB 7.4(L) 13.7 - 17.5 g/dL LAB HEMATOLOGY METHOD 09/24/2024 10:15 PM EDT [facility] HCT 24.1(L) 40.0 - 51.0 % LAB HEMATOLOGY METHOD 09/24/2024 10:15 PM EDT [facility] Platelet Count 231 155 - 369 10*3/uL LAB HEMATOLOGY METHOD 09/24/2024 10:15 PM EDT [facility] MCV 88 79 - 98 fL LAB HEMATOLOGY METHOD 09/24/2024 10:15 PM EDT [facility] MCH 27.0 26.0 - 32.0 pg LAB HEMATOLOGY METHOD 09/24/2024 10:15 PM EDT [facility] MCHC 30.7 30.7 - 35.5 g/dL LAB HEMATOLOGY METHOD 09/24/2024 10:15 PM EDT [facility] RDW 15.5(H) 11.5 - 14.5 % LAB HEMATOLOGY METHOD 09/24/2024 10:15 PM EDT [facility] MPV 8.9 8.8 - 12.5 fL LAB HEMATOLOGY METHOD 09/24/2024 10:15 PM EDT [facility] nRBC 0.0 <=0.0 per 100 WBCs LAB HEMATOLOGY METHOD 09/24/2024 10:15 PM EDT [facility] Differential Type Automated LAB HEMATOLOGY METHOD 09/24/2024 10:15 PM EDT [facility] Neutrophils % 55 % LAB HEMATOLOGY METHOD 09/24/2024 10:15 PM EDT [facility] Lymphocytes % 29 % LAB HEMATOLOGY METHOD 09/24/2024 10:15 PM EDT [facility] Monocytes % 11 % LAB HEMATOLOGY METHOD 09/24/2024 10:15 PM EDT [facility] Eosinophils % 4 % LAB HEMATOLOGY METHOD 09/24/2024 10:15 PM EDT [facility] Basophils % 1 % LAB HEMATOLOGY METHOD 09/24/2024 10:15 PM EDT [facility] Immature Granulocytes % 0 % LAB HEMATOLOGY METHOD 09/24/2024 10:15 PM EDT [facility] Neutrophils Absolute 3.12 1.60 - 6.10 10*3/uL LAB HEMATOLOGY METHOD 09/24/2024 10:15 PM EDT [facility] Lymphocytes Absolute 1.63 1.20 - 3.90 10*3/uL LAB HEMATOLOGY METHOD 09/24/2024 10:15 PM EDT [facility] Monocytes Absolute 0.59 0.30 - 0.90 10*3/uL LAB HEMATOLOGY METHOD 09/24/2024 10:15 PM EDT [facility] Eosinophils Absolute 0.22 0.00 - 0.50 10*3/uL LAB HEMATOLOGY METHOD 09/24/2024 10:15 PM EDT [facility] Basophils Absolute 0.04 0.00 - 0.10 10*3/uL LAB HEMATOLOGY METHOD 09/24/2024 10:15 PM EDT [facility] Immature Granulocytes Absolute 0.02 0.00 - 0.06 10*3/uL LAB HEMATOLOGY METHOD 09/24/2024 10:15 PM EDT [facility] Blood Venous blood specimen / Unknown Venipuncture / Unknown 09/24/2024 10:06 PM EDT 09/24/2024 10:11 PM EDT Narrative [facility] - 09/24/2024 10:15 PM EDT Therapeutic decision making should be based on absolute values, rather than percentages. us Chelly VY[facility] BLOOD ORDERABLES Final R esult [facility] [address] [place], [place] [id number] * Type and screen (09/24/2024 10:06 PM EDT) ABO/Rh B Positive 09/24/2024 9:45 PM EDT BLOOD BANK Antibody Screen Negative 09/24/2024 9:45 PM EDT BLOOD BANK Specimen Expiration 09/27/2024 23:59 09/24/2024 9:45 PM EDT BLOOD BANK Blood Venous blood specimen / Unknown Venipuncture / Unknown 09/24/2024 10:06 PM EDT 09/24/2024 10:16 PM EDT us Chelly [facility] BLOOD BANK TEST ORDERABL ES Final Result [facility] [address] [place] [address], [place] * EKG now - STAT (adult) (09/24/2024 8:34 PM EDT) EKG DIAGNOSIS CLASS Abnormal MUSE ECG Ventricular Rate 92 BPM MUSE ECG Atrial Rate 92 BPM MUSE ECG SD Interval 146 ms MUSE ECG QRSD Interval 76 ms MUSE ECG QT Interval 396 ms MUSE ECG QTC Interval 489 ms MUSE ECG P [place] 23 degrees MUSE ECG R [place] -24 degrees MUSE ECG T Wave [place] 65 degrees MUSE ECG Diagnosis Normal sinus rhythm MUSE ECG Diagnosis Possible Left atrial enlargement MUSE ECG Diagnosis Inferior infarct , age undetermined MUSE ECG Diagnosis Cannot rule out Anterior infarct , age undetermined MUSE ECG Diagnosis Abnormal ECG MUSE ECG Diagnosis MUSE ECG Diagnosis Confirmed by Cb Eaton ([id number]) on 09/25/2024 1:58:50 PM MUSE ECG 09/24/2024 8:34 PM EDT 09/25/2024 1:58 PM EDT Cece Miller MD ECG ORDERABLES Final Result Performing Organization Address City/[facility] Co de Phone Number MUSE ECG documented in this encounter Visit Diagnoses Diagnosis ESRD on dialysis ([facility])- Primary End stage renal disease Chronic anemia Unspecified anemia documented in this encounter Additional Health Concerns Active Problems Noted Date Diagnosed Date Autogenerated Problem 05/13/2024 Autogenerated Problem 08/05/2024 Infection Onset Date Last Indicated Resolved Time 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
--- OUTSIDE RECORDS SUMMARY | 2024-10-12 15:09 | XMS_ITS | Encounter Summary ---
Author Organization Healthcare Address [address] [place] [address] Care Team Providers Care Knowledge Manager Name Role Phone Pcp, No Primary Care Provider Unavailabl e Encounter Details Date Type Department Care Team (Late st Contact Info) Description 09/17/2024 Patient Outreach [facility] Medicine Specialties [address], [address] [place] [address] Deirdre Gandara Social History Tobacco Use Types Packs/Day Years [...] often do you attend chur ch or mosque services? Patient unable to answer 05/07/2024 Do you belong to any clubs o r organizations such as baptism groups, unions, fraternal or athletic groups, or [...] Never 07/31/2024 How often do you attend baptism or mosque serv ices? Never 07/31/2024 Do you belong to any clubs o r organizations such as baptism groups, unions, fraternal or athletic groups, or [...] medical care, and heating? Very hard 07/31/2024 [facility] of Occupat ional Health - Occupational Stress [...] any time in the past 12 m [facility], were you homeless or living in a longterm (including now)? Yes 07/31/2024 CAGE ASSESSMENT Answer [...] drink first t terri in the morning (EYE-FOREST ECOLOGIST) to steady your nerves or to get [...] on file documented as of this encounter Miscellaneous Notes * Progress Notes - Deirdre Gandara - 09/17/2024 2:09 PM EDT Contact attempt: Attempt 1 since beginning Relink workflow. SW is attempting to connect pt to HCV care. Pt was found to have HCV RNA+ result in previous lab history. Outcome of contact attempt is Left a Message Pt now needs hepatology for decompensated cirrhosis and HCV tx. -1594: Number cannot be dialed. Sent text requesting f/u. -5585: Spoke to female who reports sister is best number to reach pt. -2650: Left vm and sent a text requesting f/u. LTC team will attempt contact in 1 week. documented in this encounter Plan of Treatment Upcoming Encounters Date Type Department Care Team (Late st Contact Info) Description 10/13/2024 8:00 AM EDT Office Visit [place] [facility] [address] [place] [address] 12/30/2024 3:40 PM EST Office Visit [facility] [place] [address] [facility] [place] [address] Daniel Parsons MD [address] [place] [address] documented as of this encounter Goals Goal Patient Goal Type Associated Problems Recent Progress Patient-Stated? Author Autogenerat ed Goal Care Plan Autogenerated Problem No Sergo Pedroza Autogenerat ed Goal Care Plan Autogenerated Problem No Leisa Anaya RN documented as of this encounter Visit Diagnoses Not on filedocumented in this encounter Additional Health Concerns Active Problems Noted Date Diagnosed Date Autogenerated Problem 05/13/2024 Autogenerated Problem 08/05/2024 Infection Onset Date Last Indicated Resolved Time MRSA 05/06/2024 08/04/2024 Assessment Noted Time A Body Mass Index follow-up plan has been documented for the patient 09/09/2024 8:03 AM EDT documented as of this encounter Care Teams Knowledge Manager Relationship Specialty Start Date End Date Pcp, No [address] [place] [address] PCP - General Family Medicine 07/26/21 documented as of this encounter
--- OUTSIDE RECORDS SUMMARY | 2024-10-12 15:09 | XMS_ITS | Encounter Summary ---
Author Organization Healthcare Address [address] [place] [address] Care Team Providers Care Pastrycook Name Role Phone Pcp, No Primary Care Provider Unavailabl e Encounter Details Date Type Department Care Team (Latest Contact Info) Description 08/23/2024 Travel Social History Tobacco Use Types Packs/Day Years [...] answer 05/07/2024 How often do you attend [facility] or amish services? Patient unable to answer 05/07/2024 Do you belong to any clubs o r organizations such as jainism groups, unions, fraternal or athletic groups, or [...] you are drinking? Patient unable to answer 5 Q3: How often do you have si [...] Never 07/31/2024 How often do you attend jainism or amish serv ices? Never 07/31/2024 Do you belong to any clubs o r organizations such as jainism groups, unions, fraternal or athletic groups, or [...] you are drinking? Patient unable to answer 5 Q3: How often do you have si x or more drinks on one occasion? Patient unable to answer 07/31/2024 Overall Financial Resource Strain (CARDIA) Answe r Date Recorded How hard is it for you to pa y for the very basics like food, housing, medical care, and heating? Very hard 07/31/2024 [facility] of Occupat ional Health - Occupational Stress [...] any time in the past 12 m [facility], were you homeless or living in a fpc (including now)? Yes 07/31/2024 CAGE ASSESSMENT Answer [...] drink first t terri in the morning (EYE-PLANT ASSOCIATE) to steady your nerves or to get [...] Date of Assessment Author No Risk Indicated 08/23/2024 8:00 PM EDT Vanesa Hernandez RN * Question Answer Date of Assessment Author 1. Wish to be (Past 1 Month) No 025 8:00 PM EDT Vanesa Hernandez RN 2. Non-Specific Active Suici veronica Thoughts (Past 1 Month) No 08/23/2024 8:00 PM EDT Gladis Hernandez RN 6. Suicidal Behavior (Lifetime) No 8:00 PM EDT Vanesa Hernandez RN documented as of this encounter Plan of Treatment Upcoming Encounters Date Type Department Care Team (Late st Contact Info) Description 10/13/2024 8:00 AM EDT Office Visit [place] [facility] [address] [place] [address] 12/30/2024 3:40 PM EST Office Visit [facility] [place] [address] [facility] [place] [address] Daniel Parsons MD [address] [place] [address] documented as of this encounter Goals Goal [...] documented as of this encounter Care Teams Pastrycook Relationship Specialty Start [place] [address] PCP - General Family Medicine 07/26/21 documented as of this encounter
--- OUTSIDE RECORDS SUMMARY | 2024-10-12 15:09 | XMS_ITS | Encounter Summary ---
Author Organization Healthcare Address [address] [place] [id number] Care Team Providers Care Supreme Court Judge Name Role Phone Pcp, No Primary Care Provider Unavailabl e Encounter Details Date Type Department Care Team (Late st Contact Info) Description 09/17/2024 Orders Only External Location [address] [place] [address] [place] [address] Social History Tobacco Use Types Packs/Day Years [...] How often do you attend chur or pentecostalism services? Patient unable to answer 05/07/2024 Do you belong to any clubs o r organizations such as tenriism groups, unions, fraternal or athletic groups, or [...] Never 07/31/2024 How often do you attend tenriism or pentecostalism serv ices? Never 07/31/2024 Do you belong to any clubs o r organizations such as tenriism groups, unions, fraternal or athletic groups, or [...] medical care, and heating? Very hard 07/31/2024 [facility] [employer] of Occupat ional Health - Occupational Stress [...] any time in the past 12 m [facility], were you homeless or living in a halfway (including now)? Yes 07/31/2024 CAGE ASSESSMENT Answer [...] drink first t terri in the morning (EYE-WIND TURBINE PERFORMANCE ENGINEER) to steady your nerves or to [...] on file documented as of this encounter Plan of Treatment Upcoming Encounters Date Type Department Care Team (Late st Contact Info) Description 10/13/2024 8:00 AM EDT Office Visit [place] [facility] [address] [place] [address] 12/30/2024 3:40 PM EST Office Visit [facility] [employer] [place] [address] [place] [address] Daniel Parsons MD [address] [place] [address] documented as of this encounter Goals Goal Patient Goal Type Associated Problems Recent Progress Patient-Stated? Author Autogenerat ed Goal Care Plan Autogenerated Problem No Sergo Pedroza Autogenerat ed Goal Care Plan Autogenerated Problem No Leisa Anaya, RN documented as of this encounter Procedures Procedure Name Priority Date/Time Associated Diagnosis Comments CT OUTSIDE IMAGES 09/17/2024 8:49 PM EDT documented in this encounter Results * CT OUTSIDE IMAGES (09/17/2024 8:49 PM EDT) Anatomical Region Laterality Modality Computed Tomogra phy 09/17/2024 8:[address] PROCEDURES Final Result documented in this encounter Visit Diagnoses Not on filedocumented in this encounter Additional Health Concerns Active Problems Noted Date Diagnosed Date Autogenerated Problem 05/13/2024 Autogenerated Problem 08/05/2024 Infection Onset Date Last Indicated Resolved Time MRSA 05/06/2024 08/04/2024 Assessment Noted Time A Body Mass Index follow-up plan has been documented for the patient 09/09/2024 8:03 AM EDT documented as of this encounter Care Teams Supreme Court Judge Relationship Specialty Start Date End Date P[place], [place] [address] PCP - General Family Medicine 07/26/21 documented as of this encounter
--- OUTSIDE RECORDS SUMMARY | 2024-10-12 15:09 | XMS_ITS | Encounter Summary ---
Author Organization Healthcare Address [address] [place] [address] Care Team Providers Care Welfare Case Worker Name Role Phone Pcp, No Primary Care Provider Unavailabl e Encounter Details Date Type Department Care Team (Latest Contact Info) Description 09/10/2024 Travel Social History Tobacco Use Types Packs/Day [...] answer 05/07/2024 How often do you attend [facility] or samaritan services? Patient unable to answer 05/07/2024 Do you belong to any clubs o r organizations such as rastafari groups, unions, fraternal or athletic groups, or [...] Never 07/31/2024 How often do you attend rastafari or samaritan serv ices? Never 07/31/2024 Do you belong to any clubs o r organizations such as rastafari groups, unions, fraternal or athletic groups, or [...] medical care, and heating? Very hard 07/31/2024 [facility] of Occupat ional Health - Occupational Stress [...] time in the past 12 m [facility], were you homeless or living in a mcc (including now)? Yes 07/31/2024 CAGE ASSESSMENT Answer [...] drink first t terri in the morning (EYE-STORE HAND) to steady your nerves or to get [...] Description 10/13/2024 8:00 AM EDT Office Visit [place] [facility] [address] [place] [address] 12/30/2024 3:40 PM EST Office Visit [facility] [place] [address] [facility] [place] [address] Daniel Parsons MD [address] [place] [address] documented as of this encounter Goals Goal [...] documented as of this encounter Care Teams Welfare Case Worker Relationship Specialty Start Date End Date Pcp, Sumaya [address] [place] [address] PCP - General Family Medicine 07/26/21 documented as of this encounter
--- OUTSIDE RECORDS SUMMARY | 2024-10-12 15:09 | XMS_ITS | Encounter Summary ---
Author Organization Healthcare Address [address] [place] [address] Care Team Providers Care Assistant Professor Of Surgery Name Role Phone Pcp, No Primary Care Provider Unavailabl e Encounter Details Date Type Department Care Team (Latest Contact Info) Description 08/26/2024 Travel Social History Tobacco Use Types Packs/Day [...] answer 05/07/2024 How often do you attend [facility] or adventist services? Patient unable to answer 05/07/2024 Do you belong to any clubs o r organizations such as anabaptism groups, unions, fraternal or athletic groups, or [...] Never 07/31/2024 How often do you attend anabaptism or adventist serv ices? Never 07/31/2024 Do you belong to any clubs o r organizations such as anabaptism groups, unions, fraternal or athletic groups, or [...] medical care, and heating? Very hard 07/31/2024 [facility] [place] of Occupat ional Health - Occupational Stress [...] drink first t terri in the morning (EYE-STRETCHER LEVELER OPERATOR HELPER) to steady your nerves or to get [...] Date of Assessment Author No Risk Indicated 08/26/2024 8:00 PM EDT Sky Renee RN * Question Answer Date of Assessment Author 1. Wish to be (Past 1 Month) No 025 8:00 PM EDT Vandana Renee RN 2. Non-Specific Active Suici veronica Thoughts (Past 1 Month) No 08/26/2024 8:00 PM EDT Vandana Renee RN 6. Suicidal Behavior (Lifetime) No 8:00 PM EDT Vandana Renee RN documented as of this encounter Plan of Treatment Upcoming Encounters Date Type Department Care Team (Late st Contact Info) Description 10/13/2024 8:00 AM EDT Office Visit [facility] Medicine Specialties [address], [address] [place] [address] 12/30/2024 3:40 PM EST Office Visit [facility] [place] [address] [place] [address] Daniel Parsons MD [address] [place] [address] documented as of this encounter Goals Goal [...] documented as of this encounter Care Teams Assistant Professor Of Surgery Relationship Specialty Start Date End Date Pcp, [place] [address] PCP - General Family Medicine 07/26/21 documented as of this encounter
--- OUTSIDE RECORDS SUMMARY | 2024-10-12 15:09 | XMS_ITS | Encounter Summary ---
Author Organization Healthcare Address [address] [place] [address] Care Team Providers Care Churn Operator Margarine Name Role Phone Pcp, No Primary Care Provider Unavailabl e Encounter Details Date Type Department Care Team (Latest Contact Info) Description 09/04/2024 Travel Social History Tobacco Use Types Packs/Day [...] answer 05/07/2024 How often do you attend [facility] or mormonism services? Patient unable to answer 05/07/2024 Do you belong to any clubs o r organizations such as yarsanism groups, unions, fraternal or athletic groups, or [...] Never 07/31/2024 How often do you attend yarsanism or mormonism serv ices? Never 07/31/2024 Do you belong to any clubs o r organizations such as yarsanism groups, unions, fraternal or athletic groups, or [...] medical care, and heating? Very hard 07/31/2024 [facility] [place] of Occupat ional Health - Occupational Stress [...] any time in the past 12 m [facility], were you homeless or living in [...] drink first t terri in the morning (EYE-BELT AND LINK SHOP SUPERVISOR) to steady your nerves or to get [...] Date of Assessment Author No Risk Indicated 09/04/2024 8:00 PM EDT Enoch Noel * Question Answer Date of Assessment Author 1. Wish to be (Past 1 Month) No 025 8:00 PM EDT Enoch Noel 2. Non-Specific Active Suici veronica Thoughts (Past 1 Month) No 09/04/2024 8:00 PM EDT Enoch Noel 6. Suicidal Behavior (Lifetime) No 8:00 PM EDT Enoch Noel documented as of this encounter Plan of Treatment Upcoming Encounters Date Type Department Care Team (Late st Contact Info) Description 10/13/2024 8:00 AM EDT [facility] [address], [address] [place] [address] 12/30/2024 3:40 PM EST Office Visit [facility] [place] [address] [place] [address] Daniel Parsons MD [address] [place] [address] documented as of this encounter Goals Goal [...] documented as of this encounter Care Teams Churn Operator Margarine Relationship Specialty Start Date End Date Pcp, [place] [address] PCP - General Family Medicine 07/26/21 documented as of this encounter
--- OUTSIDE RECORDS SUMMARY | 2024-10-12 15:09 | XMS_ITS | Encounter Summary ---
Author Organization Healthcare Address [address] [place] [address] Care Team Providers Care Camp Advisor Name Role Phone Pcp, No Primary Care Provider Unavailabl e Encounter Details Date Type Department Care Team (Late st Contact Info) Description 09/18/2024 Telephone [facility] Medicine Specialties [address], [address] [place] [address] Angeles Carvalho, RN MEDICINE SPECIALTIES CLINIC Social History Tobacco Use Types Packs/Day Years [...] How often do you attend chur or rastafarian services? Patient unable to answer 05/07/2024 Do you belong to any clubs o r organizations such as buddhist groups, unions, fraternal or athletic groups, or [...] Never 07/31/2024 How often do you attend buddhist or rastafarian serv ices? Never 07/31/2024 Do you belong to any clubs o r organizations such as buddhist groups, unions, fraternal or athletic groups, or [...] medical care, and heating? Very hard 07/31/2024 [facility] [place] of Occupat ional Health - Occupational Stress [...] any time in the past 12 m [facility], were you homeless or living in a retirement (including now)? Yes 07/31/2024 CAGE ASSESSMENT Answer [...] drink first t terri in the morning (EYE-COUNTY HOME DEMONSTRATOR) to steady your nerves or to get [...] Description 10/13/2024 8:00 AM EDT Office Visit [facility] Medicine Specialties [address], [address] [place] [address] 12/30/2024 3:40 PM EST Office Visit [facility] [place] [address] [place] [address] Daniel Parsons MD [address] [place] [address] documented as of this encounter Goals Goal [...] documented as of this encounter Care Teams Camp Advisor Relationship Specialty Start Date End Date Pcp, No [address] [place] [address] PCP - General Family Medicine 07/26/21 documented as of this encounter
--- OUTSIDE RECORDS SUMMARY | 2024-10-12 15:09 | XMS_ITS | Encounter Summary ---
Author Organization Healthcare Address [address] [place] [address] Care Team Providers Care Color Mixer Name Role Phone Pcp, No Primary Care Provider Unavailabl e Encounter Details Date Type Department Care Team (Late st Contact Info) Description 09/29/2024 Telephone [facility] Medicine Specialties [address], [address] [place] [address] None, None [address], [place] [id number] Social History Tobacco Use Types Packs/Day Years [...] often do you attend chur ch or jew services? Patient unable to answer 05/07/2024 Do you belong to any clubs o r organizations such as gnosticism groups, unions, fraternal or athletic groups, or [...] Never 07/31/2024 How often do you attend gnosticism or jew serv ices? Never 07/31/2024 Do you belong to any clubs o r organizations such as gnosticism groups, unions, fraternal or athletic groups, or [...] medical care, and heating? Very hard 07/31/2024 [facility] [place] of Occupat ional Health - Occupational Stress [...] any time in the past 12 m [facility], were you homeless or living in a care home (including now)? Yes 07/31/2024 CAGE ASSESSMENT Answer [...] drink first t terri in the morning (EYE-SAMPLE STEAMER) to steady your nerves or to get [...] as of this encounter Miscellaneous Notes * Telephone Encounter - Lashay Toledo - 09/29/2024 8:08 AM EDT Same Day Appt/Overbook Request Reason for Call: Please call patient's sister to RS today's appointment Best contact number: Other: [phone] Optimal time of day to reach caller: ANYTIME Additional comments/information from caller: None Note: Please do not reply to this message. Follow-up communication and further actions as a result of this message need to be communicated with the patient directly, if the patient is not active onMyChart. If the patient is active on MyChart, they will receive notification of the communication/outcome via MyChart. documented in this encounter Plan of Treatment Upcoming Encounters Date Type Department Care Team (Late st Contact Info) Description 10/13/2024 8:00 AM EDT Office Visit [facility] Medicine Specialties [address], [address] [place] [address] 12/30/2024 3:40 PM EST Office Visit [facility] [place] [address] [place] [address] Daniel Parsons MD [address] [place] [address] documented as of this encounter Goals Goal [...] documented as of this encounter Care Teams Color Mixer Relationship Specialty Start Date End Date Pcp, No [address] [place] [address] PCP - General Family Medicine 07/26/21 documented as of this encounter
--- OUTSIDE RECORDS SUMMARY | 2024-10-12 15:09 | XMS_ITS | Encounter Summary ---
Author Organization Healthcare Address [address] [place] [id number] Care Team Providers Care Track Layer Name Role Phone Pcp, No Primary Care Provider Unavailabl e Encounter Details Date Type Department Care Team ([facility] st Contact Info) Description 09/09/2024 Orders Only Professional [facility] Nephrology, Bone & Mineral Metabolism [address], [address] [place] [address] Rosie Charlton MD [address] [id number] ESRD (end stage renal disease) ([facility]) (Primary Dx) Social History Tobacco Use Types [...] answer 05/07/2024 How often do you attend [facility] or voodoo services? Patient unable to answer 05/07/2024 Do you belong to any clubs o r organizations such as adventist groups, unions, fraternal or athletic groups, or [...] Never 07/31/2024 How often do you attend adventist or voodoo serv ices? Never 07/31/2024 Do you belong to any clubs o r organizations such as adventist groups, unions, fraternal or athletic groups, or [...] medical care, and heating? Very hard 07/31/2024 [facility] - Occupational Stress Questionnaire Answer Date [...] any time in the past 12 m [facility], were you homeless or living in a prison (including now)? Yes 07/31/2024 CAGE ASSESSMENT Answer [...] drink first t terri in the morning (EYE-MAINFRAME SYSTEMS ENGINEER) to steady your nerves or to get rid of a hangover? 0 03/16/2022 CAGE Questionnaire Score 0 023 Utilities Answer Date Recorded In the past 12 months has e [employer], gas, oil, or water [employer] threatened to shut off services in your [...] Description 10/13/2024 8:00 AM EDT Office Visit [facility] Medicine Specialties [address] [place] [address] 12/30/2024 3:40 PM EST Office Visit [facility] [place] [address] [place] [address] Daniel Parsons MD [address] [place] [address] documented as of this encounter Goals Goal Patient Goal Type Associated Problems Recent Progress Patient-Stated? Author Autogenerat ed Goal Care Plan Autogenerated Problem No Sergo Pedroza Autogenerat ed Goal Care Plan Autogenerated Problem No Leisa Anaya, RN documented as of this encounter Results * Hepatitis B Surface Antigen (09/10/2024 2:40 PM EDT) Hepatitis B Surf Antigen Negative Negative 09/10/2024 4:17 PM EDT [facility] Blood Venous blood specimen / Unknown Venipuncture / Unknown 09/10/2024 2:40 PM EDT 09/10/2024 2:40 PM EDT us Eri Becker MD LAB BLOOD ORDERABLES Fin al Result Performing Organization Address City/[facility]/ZIP Co de Phone Number [facility] [address] [place] [address] * (ABNORMAL) Hepatitis B Core Total Ab, IgG and IgM (09/10/2024 2:40 PM EDT) Hepatitis B Core Total Antibody IgG,IgM Positive(A ) Negative 09/10/2024 4:55 PM EDT [facility] Blood Venous blood specimen / Unknown Venipuncture / Unknown 09/10/2024 2:40 PM EDT 09/10/2024 2:40 PM EDT us Eri Becker MD LAB BLOOD ORDERABLES Fin al Result Performing Organization Address City/[facility]/ZIP Co de Phone Number [facility] [address] [place] [address] documented in this encounter Visit Diagnoses Diagnosis ESRD (end stage renal disease) (CMS/HCC)- Primary End stage renal disease documented in this encounter Additional Health Concerns Active Problems Noted Date Diagnosed Date Autogenerated Problem 05/13/2024 Autogenerated Problem 08/05/2024 Infection Onset Date Last Indicated Resolved Time 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
--- OUTSIDE RECORDS SUMMARY | 2024-10-12 15:09 | XMS_ITS | Encounter Summary ---
Author Organization Healthcare Address [address] [place] [address] Care Team Providers Care Jacquard Loom Weaver Name Role Phone Pcp, No Primary Care Provider Unavailabl e Encounter Details Date Type Department Care Team (Latest Contact Info) Description 09/02/2024 Travel Social History Tobacco Use Types Packs/Day [...] answer 05/07/2024 How often do you attend [facility] or scientologist services? Patient unable to answer 05/07/2024 Do [...] How often do you attend yarsanism or scientologist serv ices? Never 07/31/2024 Do you belong [...] medical care, and heating? Very hard 07/31/2024 [facility] [place] of Occupat ional Health - Occupational Stress [...] time in the past 12 m [facility], were you homeless or living in a [...] drink first t terri in the morning (EYE-TRAIN CONTROL TECHNICIAN) to steady your nerves or to get [...] Date of Assessment Author No Risk Indicated 09/02/2024 8:00 AM EDT Aspen German RN * Question Answer Date of Assessment Author 1. Wish to be (Past 1 Month) No 025 8:00 AM EDT Aspen German RN 2. Non-Specific Active Suici veronica Thoughts (Past 1 Month) No 09/02/2024 8:00 AM EDT Shirin German RN 6. Suicidal Behavior (Lifetime) No 8:00 AM EDT Aspen German RN documented as of this encounter Plan of Treatment Upcoming Encounters Date Type Department Care Team (Late st Contact Info) Description 10/13/2024 8:00 AM EDT Office Visit [facility] Medicine Specialties [address], [address] [place] [address] 12/30/2024 3:40 PM EST Office Visit [facility] [place] [address] [place] [address] Daniel Parsons MD [address] [place] [address] documented as of this encounter Goals Goal [...] documented as of this encounter Care Teams Jacquard Loom Weaver Relationship Specialty Start Date End Date Pcp, [place] [address] PCP - General Family Medicine 07/26/21 documented as of this encounter
--- OUTSIDE RECORDS SUMMARY | 2024-10-12 15:09 | XMS_ITS | Encounter Summary ---
Author Organization Healthcare Address [address] [place] [address] Care Team Providers Care Veneer Cutter Name Role Phone Pcp, No Primary Care Provider Unavailabl e Encounter Details Date Type Department Care Team (Late st Contact Info) Description 09/24/2024 Patient Outreach [facility] Medicine Specialties [address] [place] [address] Kalee Cardona Social History Tobacco Use Types Packs/Day Years [...] How often do you attend chur or anglican services? Patient unable to answer 05/07/2024 Do you belong to any clubs o r organizations such as presybeterian groups, unions, fraternal or athletic groups, or [...] Never 07/31/2024 How often do you attend presybeterian or anglican serv ices? Never 07/31/2024 Do you belong to any clubs o r organizations such as presybeterian groups, unions, fraternal or athletic groups, or [...] medical care, and heating? Very hard 07/31/2024 [facility] [place] of Occupat ional Health - Occupational Stress [...] in the past 12 m [facility], were you homeless or living in a fci (including now)? Yes 07/31/2024 CAGE ASSESSMENT Answer [...] drink first t terri in the morning (EYE-COLLAR WORKER) to steady your nerves or to get [...] encounter Miscellaneous Notes * Progress Notes - Kalee Cardona - 09/24/2024 10:45 AM EDT Contact attempt: Attempt 2 since beginning Relink workflow. SW is attempting to connect pt to HCV care. Pt was found to have HCV RNA+ result in previous lab history. Outcome of contact attempt is Available Sw making 2nd relink attempt. Pt needs [facility]. Sw spoke with pt on 2559 and pt scheduled with [facility]. Sw noticed note from GI clinic that pt needs to be booked SAVANNAH in an overflow appointment. Sw messaged Charline Diaz who stated pt needs to be in overflow or [facility] and she would call and schedule it with him. Pt scheduled for 09/29. LTC will follow up on 09/30 to check appt status documented in this encounter Plan of Treatment Upcoming Encounters Date Type Department Care Team (Late st Contact Info) Description 10/13/2024 8:00 AM EDT Office Visit [facility] Medicine Specialties [address] [place] [address] 12/30/2024 3:40 PM EST Office Visit [facility] [place] [address] [place] [address] Daniel Parsons MD [address] [place] [address] documented as of this encounter Goals Goal [...] documented as of this encounter Care Teams Veneer Cutter Relationship Specialty Start Date End Date Pcp, No [address] [place] [address] PCP - General Family Medicine 07/26/21 documented as of this encounter
--- OUTSIDE RECORDS SUMMARY | 2024-10-12 15:09 | XMS_ITS | Encounter Summary ---
Author Organization Healthcare Address [address] [place] [address] Care Team Providers Care Medical Doctor Md Name Role Phone Pcp, No Primary Care Provider Unavailabl e Encounter Details Date Type Department Care Team (Latest Contact Info) Description 09/24/2024 Travel Social History Tobacco Use Types Packs/Day [...] you attend [facility] or congregational services? Patient unable to answer 05/07/2024 Do you belong to any clubs o r organizations such as protestant groups, unions, fraternal or athletic groups, or [...] Never 07/31/2024 How often do you attend protestant or congregational serv ices? Never 07/31/2024 Do you belong to any clubs o r organizations such as protestant groups, unions, fraternal or athletic groups, or [...] medical care, and heating? Very hard 07/31/2024 [facility] [place] of Occupat ional Health - Occupational Stress [...] any time in the past 12 m [facility], were you homeless or living in a mcfp (including now)? Yes 07/31/2024 CAGE ASSESSMENT Answer [...] drink first t terri in the morning (EYE-CUTTER AND EDGE TRIMMER) to steady your nerves or to get [...] Stokes RN documented as of this encounter Plan of Treatment Upcoming Encounters Date Type Department Care Team (Late st Contact Info) Description 10/13/2024 8:00 AM EDT [facility] Visit [facility] [address], [address] [place] [address] 12/30/2024 3:40 PM EST Office Visit [facility] [place] [address] [place] [address] Daniel Parsons MD [address] [place] [address] documented as of this encounter Goals Goal [...] documented as of this encounter Care Teams Medical Doctor Md Relationship Specialty Start Date End Date Pcp, [place] [address] PCP - General Family Medicine 07/26/21 documented as of this encounter
--- OUTSIDE RECORDS SUMMARY | 2024-10-12 15:09 | XMS_ITS | Encounter Summary ---
Author Organization Healthcare Address [address] [place] [address] Care Team Providers Care Grinding Room Inspector Name Role Phone Pcp, No Primary Care Provider Unavailabl e Encounter Details Date Type Department Care Team (Latest Contact Info) Description 09/05/2024 Travel Social History Tobacco Use Types Packs/Day [...] answer 05/07/2024 How often do you attend [facility] or pentecostal services? Patient unable to answer [...] How often do you attend anabaptism or pentecostal serv ices? Never 07/31/2024 Do [...] medical care, and heating? Very hard 07/31/2024 [facility] [place] of Occupat ional Health - Occupational Stress [...] any time in the past [address] [facility], were you homeless or living in a senior living (including now)? Yes 07/31/2024 CAGE ASSESSMENT Answer [...] drink first t terri in the morning (EYE-CODE AND TEST CLERK) to steady your nerves or to get [...] Date of Assessment Author No Risk Indicated 09/05/2024 8:00 PM EDT Sarita Valverde * Question Answer Date of Assessment Author 1. Wish to be (Past 1 Month) No 025 8:00 PM EDT Sarita Valverde 2. Non-Specific Active Suici veronica Thoughts (Past 1 Month) No 09/05/2024 8:00 PM EDT Sarita Valverde 6. Suicidal Behavior (Lifetime) No 8:00 PM EDT Sarita Valverde documented as of this encounter Plan of Treatment Upcoming Encounters Date Type Department Care Team (Late st Contact Info) Description 10/13/2024 8:00 AM EDT [facility] Visit [facility] Special[facility] [address], [address] [place] [address] 12/30/2024 3:40 PM EST Office Visit [facility] [place] [address] [place] [address] Daniel Parsons MD [address] [place] [address] documented as of this encounter Goals Goal Patient Goal Type Associated Problems Recent Progress Patient-Stated? Author Autogenerat ed Goal Care Plan Autogenerated Problem No Sergo Pedroza Autogenerat ed Goal Care Plan Autogenerated Problem No Leias Anaya, RN documented as of this encounter [...] documented as of this encounter Care Teams Grinding Room Inspector Relationship Specialty Start Date End Date Pcp, [place] [address] PCP - General Family Medicine 07/26/21 documented as of this encounter
--- OUTSIDE RECORDS SUMMARY | 2024-10-12 15:09 | XMS_ITS | Encounter Summary ---
Author Organization Healthcare Address [address] [id number] Care Team Providers Care College Administrator Name Role Phone Pcp, No Primary Care Provider Unavailabl e Encounter Details Date Type Department Care Team ([facility] st Contact Info) Description 09/09/2024 Orders Only Professional [facility] Nephrology, Bone & Mineral Metabolism [address], [address] [place] [address] Rosie Charlton MD [address] [id number] ESRD (end stage renal disease) ([facility]) (Primary Dx) Social History Tobacco Use [...] answer 05/07/2024 How often do you attend [facility] or voodoo services? Patient unable to answer 05/07/2024 Do you belong to any clubs o r organizations such as bahai groups, unions, fraternal or athletic groups, or [...] Never 07/31/2024 How often do you attend bahai or voodoo serv ices? Never 07/31/2024 Do you belong to any clubs o r organizations such as bahai groups, unions, fraternal or athletic groups, or [...] care, and heating? Very hard 07/31/2024 [facility] - Occupational Stress Questionnaire Answer Date Recorded [...] any time in the past 12 m [facility], were you homeless or living in a long-term (including now)? Yes 07/31/2024 CAGE ASSESSMENT Answer [...] drink first t terri in the morning (EYE-DIET TECHNICIAN REGISTERED) to steady your nerves or to get rid of a hangover? 0 03/16/2022 CAGE Questionnaire Score 0 023 Utilities Answer Date Recorded In the past 12 months has e [employer], gas, oil, or water [employer] threatened to shut off services in your [...] Visit [facility] [address], [address] [place] [address] 12/30/2024 3:40 PM EST Office Visit [facility] [place] [address] [place] [address] Daniel Parsons MD [address] [place] [address] documented as of this encounter Goals Goal Patient Goal Type Associated Problems Recent Progress Patient-Stated? Author Autogenerat ed Goal Care Plan Autogenerated Problem No Sergo Pedroza Autogenerat ed Goal Care Plan Autogenerated Problem No Leisa Anaay, RN documented as of this encounter Visit Diagnoses Diagnosis ESRD (end stage renal disease) ([facility])- Primary End stage renal disease documented in this encounter Additional Health Concerns Active Problems Noted Date Diagnosed Date Autogenerated Problem 05/13/2024 Autogenerated Problem 08/05/2024 Infection Onset Date Last Indicated Resolved Time MRSA 05/06/2024 08/04/2024 Assessment Noted Time A Body Mass Index follow-up plan has been documented for the patient 09/09/2024 8:03 AM EDT documented as of this encounter Care Teams College Administrator Relationship Specialty Start Date End Date Pcp, No [address] [place] [address] PCP - General Family Medicine 07/26/21 documented as of this encounter
--- OUTSIDE RECORDS SUMMARY | 2024-10-12 15:09 | XMS_ITS | Encounter Summary ---
Author Organization Healthcare Address [address] [place] [address] Care Team Providers Care Hi Lift Operator Name Role Phone Pcp, No Primary Care Provider Unavailabl e Encounter Details Date Type Department Care Team (Latest Contact Info) Description 08/30/2024 Travel Social History Tobacco Use Types Packs/Day [...] 05/07/2024 How often do you attend [facility] or yarsanism services? Patient unable to answer 05/07/2024 Do [...] How often do you attend gnosticism or yarsanism serv ices? Never 07/31/2024 Do you belong [...] medical care, and heating? Very hard 07/31/2024 [facility] [place] of Occupat ional Health - Occupational Stress [...] any time in the past 12 m [facility], were you homeless or living in a usp (including now)? Yes 07/31/2024 CAGE ASSESSMENT Answer [...] drink first t terri in the morning (EYE-GLASS SCIENCE ENGINEER) to steady your nerves or to [...] Date of Assessment Author No Risk Indicated 08/30/2024 8:00 PM EDT Kala Comer RN * Question Answer Date of Assessment Author 1. Wish to be (Past 1 Month) No 025 8:00 PM EDT Kala Comer RN 2. Non-Specific Active Suici veronica Thoughts (Past 1 Month) No 08/30/2024 8:00 PM EDT Elma Comer RN 6. Suicidal Behavior (Lifetime) No 8:00 PM EDT Kala Comer RN documented as of this encounter Plan of Treatment Upcoming Encounters Date Type Department Care Team (Late st Contact Info) Description 10/13/2024 8:00 AM EDT [facility] [address], [address] [place] [address] 12/30/2024 3:40 PM EST Office Visit [facility] [place] [address] [place] [address] Daniel Parsons MD [address] [place] [address] documented as of this encounter Goals Goal [...] documented as of this encounter Care Teams Hi Lift Operator Relationship Specialty Start Date [place] [address] PCP - General Family Medicine 07/26/21 documented as of this encounter
--- OUTSIDE RECORDS SUMMARY | 2024-10-12 15:09 | XMS_ITS | Encounter Summary ---
Author Organization Healthcare Address [address] [place] [address] Care Team Providers Care Hamper Maker Machine Name Role Phone Pcp, No Primary Care Provider Unavailabl e Encounter Details Date Type Department Care Team (Latest Contact Info) Description 09/06/2024 Travel Social History Tobacco Use Types Packs/Day [...] answer 05/07/2024 How often do you attend [facility] or latter-day services? Patient unable to answer 05/07/2024 Do you belong to any clubs o r organizations such as uatsdin groups, unions, fraternal or athletic groups, or [...] Never 07/31/2024 How often do you attend uatsdin or latter-day serv ices? Never 07/31/2024 Do you belong to any clubs o r organizations such as uatsdin groups, unions, fraternal or athletic groups, or [...] medical care, and heating? Very hard 07/31/2024 [facility] [place] of Occupat ional Health - Occupational Stress [...] any time in the past 12 m [facility], were you homeless or living in a long term (including now)? Yes 07/31/2024 CAGE ASSESSMENT Answer [...] drink first t terri in the morning (EYE-TUBULAR PRODUCTS FABRICATOR) to steady your nerves or to get [...] Date of Assessment Author No Risk Indicated 09/06/2024 8:00 PM EDT Sarita Valverde * Question Answer Date of Assessment Author 1. Wish to be (Past 1 Month) No 025 8:00 PM EDT Sarita Valverde 2. Non-Specific Active Suici veronica Thoughts (Past 1 Month) No 09/06/2024 8:00 PM EDT Sarita Valverde 6. Suicidal Behavior (Lifetime) No 8:00 PM EDT Sarita Valverde documented as of this encounter Plan of Treatment Upcoming Encounters Date Type Department Care Team (Late st Contact Info) Description 10/13/2024 8:00 AM EDT [facility] [address], [address] [place] [address] 12/30/2024 3:40 PM EST Office Visit [facility] [place] [address] [place] [address] Daniel Parsons MD [address] [place] [address] documented as of this encounter Goals Goal [...] documented as of this encounter Care Teams Hamper Maker Machine Relationship Specialty Start Date End Date Pcp, [place] [address] PCP - General Family Medicine 07/26/21 documented as of this encounter
--- OUTSIDE RECORDS SUMMARY | 2024-10-12 15:09 | XMS_ITS | Encounter Summary ---
Author Organization Healthcare Address [address] [place] [address] Care Team Providers Care Earthmoving Labourer Name Role Phone Pcp, No Primary Care Provider Unavailabl e Encounter Details Date Type Department Care Team (Latest Contact Info) Description 08/28/2024 Travel Social History Tobacco Use Types Packs/Day [...] answer 05/07/2024 How often do you attend [facility] or tenriism services? Patient unable to answer 05/07/2024 Do [...] How often do you attend anabaptism or tenriism serv ices? Never 07/31/2024 Do you belong [...] medical care, and heating? Very hard 07/31/2024 [facility] [place] of Occupat ional Health - Occupational Stress [...] any time in the past 12 m [facility], were you homeless or living in a [...] drink first t terri in the morning (EYE-HARNESS PLACER) to steady your nerves or to get [...] Date of Assessment Author No Risk Indicated 08/28/2024 8:00 PM EDT Kala Comer RN * Question Answer Date of Assessment Author 1. Wish to be (Past 1 Month) No 025 8:00 PM EDT Kala Comer RN 2. Non-Specific Active Suici veronica Thoughts (Past 1 Month) No 08/28/2024 8:00 PM EDT Elma Comer RN 6. Suicidal Behavior (Lifetime) No 8:00 PM EDT Kala Comer RN documented as of this encounter Plan of Treatment Upcoming Encounters Date Type Department Care Team (Late st Contact Info) Description 10/13/2024 8:00 AM EDT Office Visit [facility] [address], [address] [place] [address] 12/30/2024 3:40 PM EST Office Visit [facility] [place] [address] [place] [address] Daniel Parsons MD [address] [place] [address] documented as of this encounter Goals Goal [...] documented as of this encounter Care Teams Earthmoving Labourer Relationship Specialty Start [place] [address] PCP - General Family Medicine 07/26/21 documented as of this encounter
--- OUTSIDE RECORDS SUMMARY | 2024-10-12 15:09 | XMS_ITS | Encounter Summary ---
Author Organization Healthcare Address [address] [place] [address] Care Team Providers Care Fluid Jet Cutter Operator Name Role Phone Pcp, No Primary Care Provider Unavailabl e Encounter Details Date Type Department Care Team (Late st Contact Info) Description 09/03/2024 Patient Outreach [facility] Specialties [address], [address] [place] [address] Kalee Cardona Social History Tobacco Use Types [...] How often do you attend chur or orthodoxy services? Patient unable to answer 05/07/2024 Do you belong to any clubs o r organizations such as latter-day groups, unions, fraternal or athletic groups, or [...] Never 07/31/2024 How often do you attend latter-day or orthodoxy serv ices? Never 07/31/2024 Do you belong to any clubs o r organizations such as latter-day groups, unions, fraternal or athletic groups, or [...] and heating? Very hard 07/31/2024 [facility] [place] of Occupat ional Health - Occupational Stress [...] any time in the past 12 m [facility], were you homeless or living in a residential (including now)? Yes 07/31/2024 CAGE ASSESSMENT Answer [...] drink first t terri in the morning (EYE-ORACLE MANAGER) to steady your nerves or to get [...] * Progress Notes - Kalee Cardona - 09/03/2024 2:51 PM EDT Pt contiues in patient status. LTC will follow up on 09/17/24 to check in patient status. Pt needs GI due to decompensated cirrhosis and ascites. documented in this encounter Plan of Treatment Upcoming Encounters Date Type Department Care Team (Late st Contact Info) Description 10/13/2024 8:00 AM EDT [facility] [address] [place] [address] 12/30/2024 3:40 PM EST Office Visit [facility] [place] [address] [place] [address] Daniel Parsons MD [address] [place] [address] documented as of this encounter Goals Goal [...] documented as of this encounter Care Teams Fluid Jet Cutter Operator Relationship Specialty Start [place] [address] PCP - General Family Medicine 07/26/21 documented as of this encounter
--- OUTSIDE RECORDS SUMMARY | 2024-10-12 15:09 | XMS_ITS | Encounter Summary ---
Author Organization Healthcare Address [address] [place] [address] Care Team Providers Care Countersinker Name Role Phone Pcp, No Primary Care Provider Unavailabl e Encounter Details Date Type Department Care Team (Latest Contact Info) Description 08/29/2024 Travel Social History Tobacco Use Types Packs/Day [...] How often do you attend [facility] or yazidism services? Patient unable to answer 05/07/2024 Do you belong to any clubs o r organizations such as scientologist groups, unions, fraternal or athletic groups, or [...] Never 07/31/2024 How often do you attend scientologist or yazidism serv ices? Never 07/31/2024 Do you belong to any clubs o r organizations such as scientologist groups, unions, fraternal or athletic groups, or [...] medical care, and heating? Very hard 07/31/2024 [facility] [place] of Occupat ional Health - Occupational Stress [...] time in the past 12 m [facility], were you homeless or living in [...] drink first t terri in the morning (EYE-DOCUMENT CONTROL ASSISTANT) to steady your nerves or to get [...] Assessment Author No Risk Indicated 08/29/2024 8:00 PM EDT Kala Comer RN * Question Answer Date of Assessment Author 1. Wish to be (Past 1 Month) No 025 8:00 PM EDT Kala Comer RN 2. Non-Specific Active Suici veronica Thoughts (Past 1 Month) No 08/29/2024 8:00 PM EDT Elma Comer RN 6. Suicidal Behavior (Lifetime) No 8:00 PM EDT Kala Comer RN documented as of this encounter Plan of Treatment Upcoming Encounters Date Type Department Care Team (Late st Contact Info) Description 10/13/2024 8:00 AM EDT Office Visit [facility] [address], [address] [place] [address] 12/30/2024 3:40 PM EST Office Visit [facility] [place] [address] [place] [address] Daniel Parsons MD [address] [place] [address] documented as of this encounter Goals Goal [...] documented as of this encounter Care Teams Countersinker Relationship Specialty Start [place] [address] PCP - General Family Medicine 07/26/21 documented as of this encounter
[2024-10-12 15:10] VITALS: BP 156/117; PULSE 102; RESP 22; TEMP 36.9; O2SAT 97; BMI 21.7
--- OUTSIDE RECORDS SUMMARY | 2024-10-12 15:10 | XMS_ITS | Encounter Summary ---
Author Organization Healthcare Address [address] [place] [address] Care Team Providers Care Marketing Research Analyst Name Role Phone Pcp, No Primary Care Provider Unavailabl e Encounter Details Date Type Department Care Team (Latest Contact Info) Description 08/22/2024 Travel Social History Tobacco Use Types Packs/Day [...] answer 05/07/2024 How often do you attend [facility] or pentecostalism services? Patient unable to answer [...] How often do you attend yarsanism or pentecostalism serv ices? Never 07/31/2024 Do [...] medical care, and heating? Very hard 07/31/2024 [facility] [place] of Occupat ional Health - Occupational Stress [...] any time in the past 12 m [facility], were you homeless or living in [...] drink first t terri in the morning (EYE-ROADING ENGINEER) to steady your nerves or to [...] Date of Assessment Author No Risk Indicated 08/22/2024 8:00 PM EDT Jose Salgado RN * Question Answer Date of Assessment Author 1. Wish to be (Past 1 Month) No 025 8:00 PM EDT Jose Salgado RN 2. Non-Specific Active Suici veronica Thoughts (Past 1 Month) No 08/22/2024 8:00 PM EDT Yessenia Salgado RN 6. Suicidal Behavior (Lifetime) No 8:00 PM EDT Jose Salgado RN documented as of this encounter Plan of Treatment Upcoming Encounters Date Type Department Care Team (Late st Contact Info) Description 10/13/2024 8:00 AM EDT Office Visit [facility] [address] [place] [address] 12/30/2024 3:40 PM EST Office Visit [facility] [place] [address] [place] [address] Daniel Parsons MD [address] [place] [address] documented as of this encounter Goals Goal [...] documented as of this encounter Care Teams Marketing Research Analyst Relationship Specialty Start Date End Date Pcp, [place] [address] PCP - General Family Medicine 07/26/21 documented as of this encounter
--- OUTSIDE RECORDS SUMMARY | 2024-10-12 15:10 | XMS_ITS | Encounter Summary ---
Author Organization Healthcare Address [address] [place] [address] Care Team Providers Care Tactical Air Control Party Manager Name Role Phone Pcp, No Primary Care Provider Unavailabl e Encounter Details Date Type Department Care Team (Latest Contact Info) Description 08/19/2024 Travel Social History Tobacco Use Types Packs/Day [...] do you attend [facility] or zoroastrian services? Patient unable to answer 05/07/2024 Do you belong to any clubs o r organizations such as anglican groups, unions, fraternal or athletic groups, or [...] Never 07/31/2024 How often do you attend anglican or zoroastrian serv ices? Never 07/31/2024 Do you belong to any clubs o r organizations such as anglican groups, unions, fraternal or athletic groups, or [...] medical care, and heating? Very hard 07/31/2024 [facility] [place] of Occupat ional Health - Occupational Stress [...] any time in the past 12 m [facility], were you homeless or living in a alf (including now)? Yes 07/31/2024 CAGE ASSESSMENT Answer [...] drink first t terri in the morning (EYE-ROLLOFF DRIVER) to steady your nerves or to get [...] Date of Assessment Author No Risk Indicated 08/19/2024 8:00 PM EDT Maria L Lerner * Question Answer Date of Assessment Author 1. Wish to be (Past 1 Month) No 025 8:00 PM EDT Maria L Lerner 2. Non-Specific Active Suici veronica Thoughts (Past 1 Month) No 08/19/2024 8:00 PM EDT Maria L Lerner 6. Suicidal Behavior (Lifetime) No 8:00 PM EDT Maria L Lerner documented as of this encounter Plan of Treatment Upcoming Encounters Date Type Department Care Team (Late st Contact Info) Description 10/13/2024 8:00 AM EDT Office Visit [facility] [address] [place] [address] 12/30/2024 3:40 PM EST Office Visit [facility] [place] [address] [place] [address] Daniel Parsons MD [address] [place] [address] documented as of this encounter Goals Goal [...] documented as of this encounter Care Teams Tactical Air Control Party Manager Relationship Specialty Start Date End Date Pcp, [place] [address] PCP - General Family Medicine 07/26/21 documented as of this encounter
--- OUTSIDE RECORDS SUMMARY | 2024-10-12 15:10 | XMS_ITS | Encounter Summary ---
Author Organization Healthcare Address [address] [place] [address] Care Team Providers Care Chief Of Pediatric Urology Name Role Phone Pcp, No Primary Care Provider Unavailabl e Encounter Details Date Type Department Care Team (Latest Contact Info) Description 08/17/2024 Travel Social History Tobacco Use Types Packs/Day [...] 05/07/2024 How often do you attend [facility] or adventism services? Patient unable to answer 05/07/2024 Do you belong to any clubs o r organizations such as mandaeism groups, unions, fraternal or athletic groups, or [...] Never 07/31/2024 How often do you attend mandaeism or adventism serv ices? Never 07/31/2024 Do you belong to any clubs o r organizations such as mandaeism groups, unions, fraternal or athletic groups, or [...] medical care, and heating? Very hard 07/31/2024 [facility] [place] of Occupat ional Health - Occupational Stress [...] the past 12 m [facility], were you homeless or living in a [...] drink first t terri in the morning (EYE-BID MANAGER) to steady your nerves or to [...] Date of Assessment Author No Risk Indicated 08/17/2024 8:00 PM EDT Maria L Lerner * Question Answer Date of Assessment Author 1. Wish to be (Past 1 Month) No 025 8:00 PM EDT Maria L Lerner 2. Non-Specific Active Suici veronica Thoughts (Past 1 Month) No 08/17/2024 8:00 PM EDT Maria L Lerner 6. Suicidal Behavior (Lifetime) No 8:00 PM EDT Maria L Lerner documented as of this encounter Plan of Treatment Upcoming Encounters Date Type Department Care Team (Late st Contact Info) Description 10/13/2024 8:00 AM EDT Office Visit [facility] [address] [place] [address] 12/30/2024 3:40 PM EST Office Visit [facility] [place] [address] [place] [address] Daniel Parsons MD [address] [place] [address] documented as of this encounter Goals Goal [...] Last Indicated Resolved Time MRSA 05/06/2024 08/04/2024 COVID-19 Rule-Out 08/17/2024 08/17/2024 08/18/2024 10:49 AM EDT Assessment Noted Time A Body Mass Index follow-up plan has been documented for the patient 05/24/2024 1:05 PM EDT documented as of this encounter Care Teams Chief Of Pediatric Urology Relationship Specialty Start Date End Date Pcp, [place] [address] PCP - General Family Medicine 07/26/21 documented as of this encounter
--- OUTSIDE RECORDS SUMMARY | 2024-10-12 15:10 | XMS_ITS | Encounter Summary ---
Author Organization Healthcare Address [address] [place] [address] Care Team Providers Care Director Private Music Therapy Agency Name Role Phone Pcp, No Primary Care Provider Unavailabl e Encounter Details Date Type Department Care Team (Late st Contact Info) Description 08/20/[address] [facility] Medicine Specialties [address] [place] [address] Tracee Negrete Social History Tobacco Use Types Packs/Day Years [...] often do you attend chur ch or islam services? Patient unable to answer 05/07/2024 Do you belong to any clubs o r organizations such as yarsani groups, unions, fraternal or athletic groups, or [...] Never 07/31/2024 How often do you attend yarsani or islam serv ices? Never 07/31/2024 Do you belong to any clubs o r organizations such as yarsani groups, unions, fraternal or athletic groups, or [...] medical care, and heating? Very hard 07/31/2024 [facility] [place] of Occupat ional Health - Occupational Stress [...] drink first t terri in the morning (EYE-PLATFORM MAN) to steady your nerves or to get [...] Date of Assessment Author No Risk Indicated 08/20/2024 8:00 AM EDT Kayden Stokes, RN * Question Answer Date of Assessment Author 1. Wish to be (Past 1 Month) No 025 8:00 AM EDT Kayden Stokes, RN 2. Non-Specific Active Suici veronica Thoughts (Past 1 Month) No 08/20/2024 8:00 AM EDT Dior Stokes, RN 6. Suicidal Behavior (Lifetime) No 8:00 AM EDT Kayden Stokes, RN documented as of this encounter Miscellaneous Notes * Progress Notes - Tracee Negrete - 08/20/2024 8:05 AM EDT HCV RNA + 03/15/2022, 05/06/2024, 07/31/2024, [facility]. Pt. currently inpatient. 08/12/2024 notes indicate pt. has a new diagnosis of decompensated cirrhosis. Discuss further w/[facility] HCV provider if pt. Becomes willing/able to engage into HCV care. Chart indicates pt. is currently on a vent w/ acute respiratoryfailure and severe sepsis. LTC scheduled pt.'s next f/u contact attempt for 09/03/2024 to check on pt.'s inpatient status. documented in this encounter Plan of Treatment Upcoming Encounters Date Type Department Care Team (Late st Contact Info) Description 10/13/2024 8:00 AM EDT Office Visit [place] [facility] [address] [place] [address] 12/30/2024 3:40 PM EST Office Visit [facility] [place] [address] [place] [address] Daniel Parsons MD [address] [place] [address] documented as of this encounter Goals Goal [...] documented as of this encounter Care Teams Director Private Music Therapy Agency Relationship Specialty Start Date End Date Pcp, Sumaya [address] [place] [address] PCP - General Family Medicine 07/26/21 documented as of this encounter
--- OUTSIDE RECORDS SUMMARY | 2024-10-12 15:10 | XMS_ITS | Encounter Summary ---
Author Organization Healthcare Address [address] [place] [address] Care Team Providers Care Combination Window Installer Name Role Phone Pcp, No Primary Care Provider Unavailabl e Encounter Details Date Type Department Care Team (Latest Contact Info) Description 08/16/2024 Travel Social History Tobacco Use Types Packs/Day [...] often do you attend [facility] or restorationist services? Patient unable to answer 05/07/2024 Do you belong to any clubs o r organizations such as muslim groups, unions, fraternal or athletic groups, or [...] Never 07/31/2024 How often do you attend muslim or restorationist serv ices? Never 07/31/2024 Do you belong to any clubs o r organizations such as muslim groups, unions, fraternal or athletic groups, or [...] medical care, and heating? Very hard 07/31/2024 [facility] [place] of Occupat ional Health - Occupational Stress [...] any time in the past 12 m [facility], were you homeless or [...] drink first t terri in the morning (EYE-DISTRIBUTION SPECIALIST) to steady your nerves or to get [...] Date of Assessment Author No Risk Indicated 08/16/2024 8:00 PM EDT Maria L Lerner * Question Answer Date of Assessment Author 1. Wish to be (Past 1 Month) No 025 8:00 PM EDT Maria L Lerner 2. Non-Specific Active Suici veronica Thoughts (Past 1 Month) No 08/16/2024 8:00 PM EDT Maria L Lerner 6. Suicidal Behavior (Lifetime) No 8:00 PM EDT Maria L Lerner documented as of this encounter Plan of Treatment Upcoming Encounters Date Type Department Care Team (Late st Contact Info) Description 10/13/2024 8:00 AM EDT [facility] [address], [address] [place] [address] 12/30/2024 3:40 PM EST Office Visit [facility] [place] [facility] [address] [place] [address] Daniel Parsons MD [address] [place] [address] documented as of this encounter Goals Goal [...] documented as of this encounter Care Teams Combination Window Installer Relationship Specialty Start Date End Date Pcp, [place] [address] PCP - General Family Medicine 07/26/21 documented as of this encounter
--- OUTSIDE RECORDS SUMMARY | 2024-10-12 15:10 | XMS_ITS | Encounter Summary ---
Author Organization Healthcare Address [address] [place] [address] Care Team Providers Care Executive Relations Specialist Name Role Phone Pcp, No Primary Care Provider Unavailabl e Encounter Details Date Type Department Care Team (Latest Contact Info) Description 08/13/2024 Travel Social History Tobacco Use Types Packs/Day [...] 05/07/2024 How often do you attend [facility] or baptist services? Patient unable to answer 05/07/2024 Do you belong to any clubs o r organizations such as orthodoxy groups, unions, fraternal or athletic groups, or [...] Never 07/31/2024 How often do you attend orthodoxy or baptist serv ices? Never 07/31/2024 Do you belong to any clubs o r organizations such as orthodoxy groups, unions, fraternal or athletic groups, or [...] medical care, and heating? Very hard 07/31/2024 [facility] [place] of Occupat ional Health - Occupational Stress [...] time in the past 12 m [facility], were you homeless or living in [...] drink first t terri in the morning (EYE-CERTIFIED WELLNESS PROGRAM COORDINATOR) to steady your nerves or to get [...] Date of Assessment Author No Risk Indicated 08/13/2024 8:00 PM EDT Rick Hurst * Question Answer Date of Assessment Author 1. Wish to be (Past 1 Month) No 025 8:00 PM EDT Rick Hurst 2. Non-Specific Active Suici veronica Thoughts (Past 1 Month) No 08/13/2024 8:00 PM EDT Stevo Hurst 6. Suicidal Behavior (Lifetime) No 8:00 PM EDT Rick Hurst documented as of this encounter Plan of Treatment Upcoming Encounters Date Type Department Care Team (Late st Contact Info) Description 10/13/2024 8:00 AM EDT Office Visit [facility] [address] [place] [address] 12/30/2024 3:40 PM EST Office Visit [facility] [place] [address] [place] [address] Daniel Parsons MD [address] [place] [address] documented as of this encounter Goals Goal [...] documented as of this encounter Care Teams Executive Relations Specialist Relationship Specialty Start Date End Date Pcp, [place] [address] PCP - General Family Medicine 07/26/21 documented as of this encounter
--- OUTSIDE RECORDS SUMMARY | 2024-10-12 15:10 | XMS_ITS | Encounter Summary ---
Author Organization Healthcare Address [address] [place] [address] Care Team Providers Care Manager Corporate Strategy Name Role Phone Pcp, No Primary Care Provider Unavailabl e Encounter Details Date Type Department Care Team (Latest Contact Info) Description 08/21/2024 Travel Social History Tobacco Use Types Packs/Day [...] you attend [facility] or caodaism services? Patient unable to answer 05/07/2024 Do you belong to any clubs o r organizations such as advent groups, unions, fraternal or athletic groups, or [...] Never 07/31/2024 How often do you attend advent or caodaism serv ices? Never 07/31/2024 Do you belong to any clubs o r organizations such as advent groups, unions, fraternal or athletic groups, or [...] care, and heating? Very hard 07/31/2024 [facility] [place] of Occupat ional Health - Occupational Stress [...] any time in the past 12 m [facility], were you homeless or [...] drink first t terri in the morning (EYE-BARN MANAGER) to steady your nerves or to [...] Date of Assessment Author No Risk Indicated 08/21/2024 8:00 PM EDT Jose Salgado RN * Question Answer Date of Assessment Author 1. Wish to be (Past 1 Month) No 025 8:00 PM EDT Jose Salgado RN 2. Non-Specific Active Suici veronica Thoughts (Past 1 Month) No 08/21/2024 8:00 PM EDT Yessenia Salgado RN 6. Suicidal Behavior (Lifetime) No 8:00 PM EDT Jose Salgado RN documented as of this encounter Plan of Treatment Upcoming Encounters Date Type Department Care Team (Late st Contact Info) Description 10/13/2024 8:00 AM EDT Office Visit [facility] [address] [place] [address] 12/30/2024 3:40 PM EST Office Visit [facility] [place] [address] [place] [address] Daniel Parsons MD [address] [place] [address] documented as of this encounter Goals Goal [...] documented as of this encounter Care Teams Manager Corporate Strategy Relationship Specialty Start Date End Date Pcp, [place] [address] PCP - General Family Medicine 07/26/21 documented as of this encounter
--- OUTSIDE RECORDS SUMMARY | 2024-10-12 15:11 | XMS_ITS | Encounter Summary ---
Author Organization [facility] Address [address] [place] [address] Care Team Providers Care Copy Worker Name Role Phone Pcp, No Primary Care Provider UnavailAliya Garzon LPN Unavailable UnavailMichaela Nolan LCSW Unavailable Unavailable Encounter Details Date Type Department Care Team (Late st Contact Info) Description 04/06/2022 Lab Requisition [facility] [address] [place] [address] Emma Obrien MD [address] [id number] Encounter for general adult medical examination without abnormal findings Social History Tobacco Use Types Packs/Day Years Used Date Smoking Tobacco: Every Day Cigarettes 1 17.7 Started: 2007 Passive Smoke Exposure: Past Smokeless Tobacco: Never Alcohol Use Standard Drinks/Week Comments Not Currently 0 (1 standard drink = 0.6 oz pur e alcohol) CAGE ASSESSMENT Answer Date Recorded Cage unable [...] drink first t terri in the morning (EYE-STEAMBLASTER) to steady your nerves or to get rid of a hangover? 0 03/16/2022 CAGE Questionnaire Score 0 023 Sex and Gender Information Value Date Recorded Sex Assigned at Not on file Legal Sex Male 7:46 PM EDT Gender Identity Not on file Sexual Orientation Not on file COVID-19 Exposure Response Date Recorded In the last 10 days, have yo u been in contact with someone who was confirmed or suspected to have Coronavirus/COVID-19? No / Unsure 03/15/2022 1:23 PM EST documented as of this encounter Functional Status * Calculated C-SSRS Risk Score (Lifetime/Recent) Answer Date of Assessment Author No Risk Indicated 04/09/2022 7:00 PM Nena Simental RN * Question Answer Date of Assessment Author 1. Wish to be (Past 1 Month) No 023 7:00 PM Nena Simental RN 2. Non-Specific Active Suici veronica Thoughts (Past 1 Month) No 04/09/2022 7:00 PM Nena Simental RN 3. Active Suicidal Ideation with any Methods (Not Plan) Without Intent to Act (Past 1 Month) No 04/09/2022 7:00 PM Nena Simental RN 4. Active Suicidal Ideation with Some Intent to Act, Without Specific Plan (Past 1 Month) No 04/09/2022 7:00 PM Nena Simental RN 5. Active Suicidal Ideation with Specific Plan and Intent (Past 1 Month) No 04/09/2022 7:00 PM Nena Simental RN 6. Suicidal Behavior (Lifetime) No 7:00 PM Nena Simental RN documented as of this encounter Plan of Treatment Upcoming Encounters Date Type Department Care Team (Late st Contact Info) Description 10/13/2024 8:00 AM EDT [facility] [address] [place] [address] 12/30/2024 3:40 PM EST Office Visit [facility] [place] [facility] [address] [place] [address] Daniel Parsons MD [address] [place] [address] documented as of this encounter Procedures Procedure Name Priority Date/Time Associated Diagnosis Comments CASSANDRA AURIS SURVEILLANCE BY PCR Routine 04/06/2022 1:18 PM EST Encounter for general adult medical examination without abnormal findings documented in this encounter Results * Cassandra auris Surveillance by PCR (04/06/2022 1:18 PM EST) Cassandra auris PCR Result Not Detected Not Detected 04/10/2022 10:21 AM EST [facility] Swab (Axilla and Groin) 04/06/2022 1:18 PM EST 04/06/2022 1:26 PM EST Narrative [facility] - 04/10/2022 10:21 AM EST This PCR assay was developed and its performance characteristics determined by [facility] as appropriate for clinical purposes. This assay has not been cleared or approved by the FDA, but is performed in a CLIA regulated laboratory that is qualified to perform high-complexity testing. This PCR assay was developed and its performance characteristics determined by [facility] as appropriate for clinical purposes. This assay has not been cleared or approved by the FDA, but is performed in a CLIA regulated laboratory that is qualified to perform high-complexity testing. Emma Luz MD LAB MICROBIOLOGY - GENERAL ORDERABLES Final Result [facility] [address] [place] [address] documented in this encounter Visit Diagnoses Diagnosis Encounter for general adult medical examination without abnormal findings documented in this encounter Additional Health Concerns Infection Onset Date Last Indicated Resolved Time COVID-19 Rule-Out 05/06/2024 05/06/2024 05/07/2024 11:00 AM EDT Respiratory Rule-Out 05/06/2024 05/06/2024 025 2:09 AM EDT MRSA 05/06/2024 08/04/2024 Mycoplasma Pneumonia 05/06/2024 05/06/2024 025 10:07 AM EDT Gastrointestinal Rule-Out 07/30/2024 07/30/2024 12:04 AM EDT COVID-19 Rule-Out 08/17/2024 08/17/2024 08/18/2024 10:49 AM EDT documented as of this encounter Care Teams Copy Worker Relationship Specialty Start Date End Date Pcp, No [address] [place] [address] PCP - General Family Medicine 07/26/21 Aliya Grimaldo LPN VALUE-BASED TRANSFORMATION PROGRAM TCM Nurse Internal Medicine 04/25/22 05/25/22 Michaela Babb, [place] [address] Tv Host Assembler Adjuster 03/15/22 05/21/24 documented as of this encounter
--- OUTSIDE RECORDS SUMMARY | 2024-10-12 15:11 | XMS_ITS | Encounter Summary ---
Author Organization Healthcare Address [address] [place] [address] Care Team Providers Care Experimental Preflight Mechanic Name Role Phone Pcp, No Primary Care Provider Unavailabl e Encounter Details Date Type Department Care Team (Late st Contact Info) Description 10/10/2024 Patient Outreach [facility] [address], [address] [place] [address] Deirdre Gandara Social History Tobacco Use Types [...] often do you attend chur ch or restoration services? Patient unable to answer 05/07/2024 Do [...] How often do you attend anglican or restoration serv ices? Never 07/31/2024 Do you belong [...] medical care, and heating? Very hard 07/31/2024 [facility] [place] of Occupat ional Health - Occupational Stress [...] any time in the past [address] [facility], were you homeless or living in a [...] drink first t terri in the morning (EYE-MANAGER WELLNESS) to steady your nerves or to get [...] * Progress Notes - Deirdre Gandara - 10/10/2024 2:28 PM EDT SWer provided [facility] 10/13/24 8am appt reminder on -[id number]. documented in this encounter Plan of Treatment Upcoming Encounters Date Type Department Care Team (Late st Contact Info) Description 10/13/2024 8:00 AM EDT [facility] Visit [facility] [address] [place] [address] 12/30/2024 3:40 PM EST Office Visit [facility] [place] [address] [place] [address] Daniel Parsons MD [address] [place] [address] documented as of this encounter Goals Goal [...] documented as of this encounter Care Teams Experimental Preflight Mechanic Relationship Specialty Start Date End Date Pcp, [place] [address] PCP - General Family Medicine 07/26/21 documented as of this encounter
--- OUTSIDE RECORDS SUMMARY | 2024-10-12 15:11 | XMS_ITS | Encounter Summary ---
Author Organization Healthcare Address [address] [place] [address] Care Team Providers Care E Commerce Marketing Analyst Name Role Phone Pcp, No Primary Care Provider Unavailabl e Encounter Details Date Type Department Care Team (Late st Contact Info) Description 08/13/2024 Patient Outreach [facility] Medicine Specialties [address] [place] [address] Tracee Negrete Social History Tobacco Use Types [...] often do you attend chur ch or worship services? Patient unable to answer 05/07/2024 Do you belong to any clubs o r organizations such as nondenominational groups, unions, fraternal or athletic groups, or [...] Never 07/31/2024 How often do you attend nondenominational or worship serv ices? Never 07/31/2024 Do you belong to any clubs o r organizations such as nondenominational groups, unions, fraternal or athletic groups, or [...] medical care, and heating? Very hard 07/31/2024 [facility] [place] of Occupat ional Health - Occupational Stress [...] any time in the past 12 m [facility], were you homeless or living in [...] drink first t terri in the morning (EYE-AGENCY SERVICE REPRESENTATIVE) to steady your nerves or to get [...] of Assessment Author No Risk Indicated 08/13/2024 12:00 PM EDT Noa Gonzalez RN * Question Answer Date of Assessment Author 1. Wish to be (Past 1 Month) No 025 12:00 PM EDT Noa Gonzalez RN 2. Non-Specific Active Suici veronica Thoughts (Past 1 Month) No 08/13/2024 12:00 PM EDT Noa Gonzalez RN 6. Suicidal Behavior (Lifetime) No 12:00 PM EDT Noa Gonzalez RN documented as of this encounter Miscellaneous Notes * Progress Notes - Tracee Negrete - 08/13/2024 2:19 PM EDT HCV RNA + 03/15/2022, 05/06/2024, 07/31/2024, [facility]. Pt. currently inpatient. 08/12/2024 notes indicate pt. has a new diagnosis of decompensated cirrhosis. Discuss further w/[facility] HCV provider if pt. Becomes willing/able to engage into HCV care. Chart indicates pt. is currently on a vent w/ acute respiratoryfailure and severe sepsis. [facility]TC scheduled pt.'s next f/u contact attempt for 08/20/2024 to check on pt.'s inpatient status. documented in this encounter Plan of Treatment Upcoming Encounters Date Type Department Care Team (Late st Contact Info) Description 10/13/2024 8:00 AM EDT [facility] Visit [facility] [address] [place] [address] 12/30/2024 3:40 PM EST Office Visit [facility] [place] [facility] [address] [place] [address] Daniel Parsons MD [address] [place] [address] documented as of this encounter [...] documented as of this encounter Care Teams E Commerce Marketing Analyst Relationship Specialty Start Date End Date Pcp, Sumaya [address] [place] [address] PCP - General Family Medicine 07/26/21 documented as of this encounter
--- OUTSIDE RECORDS SUMMARY | 2024-10-12 15:11 | XMS_ITS | Clinical Summary ---
Author Organization Healthcare Address [address] [place] [address] Care Team Providers Care Aboriginal Liaison Officer Name Role Phone Pcp, No Primary Care Provider Unavailabl e Allergies Active Allergy Reactions Criticality Noted Date Comments Erythromycin Other - please docum ent in the comment field Low 05/23/2012 Gives him bad dreams Medications * This document contains information received from the source organization and may not represent a complete record from that organization. apixaban (Eliquis) 5 MG tablet Take 1 tablet by mouth 2 times a day. 60 tablet 1 5 11/04/19 25 Active naloxone (Narcan) 4 mg/0.1 mL nasal spray 1. Give 1 spray in nostril for no/slow breathing or cannot wake after opioid use 2. Call 911 3. Repeat in other nostril if symptoms continue Call 911. Give 4 mg (1 spray) into one nostril. Repeat every 2-3 minutes as needed, alternating nostrils, until medical assistance arrives. 1 each 11 5 09/05/19 26 Active hydrALAZINE (Apresoline) 25 MG tablet Take 1 tablet by mouth 3 times a day. 90 tablet 5 Active isosorbide dinitrate (Isordil Titradose) 5 MG tablet Take 2 tablets by mouth 3 times a day for 30 doses. 60 tablet 5 Active ergocalciferol (Drisdol) 1.25 MG (01863 UT) capsule Take 1 capsule by mouth 1 time per week. 5 capsule 5 10/16/19 25 Active metoprolol tartrate (Lopressor) 100 MG tablet Take 2 tablets by mouth daily. 60 tablet 5 Active buprenorphine (Subutex) [address] 3 tablets under the tongue daily for 15 days. 45 tablet 5 09/20/19 25 magnesium oxide (Mag-Ox) 400 (240 Mg) MG tablet Take 1 tablet by mouth daily. 30 tablet 5 10/11/19 25 pantoprazole (Protonix) 40 MG EC tablet Take 1 tablet by mouth daily before breakfast. Do not crush, chew, or split. 30 tablet 5 10/11/19 25 sevelamer (Renagel) 800 MG tablet Take 2 tablets by mouth 3 times a day with meals. Swallow tablet whole; do not crush, break, or chew. 180 tablet 5 10/11/19 25 Active Problems Problem Noted Date Diagnosed Date Heart failure, systolic, with acute decompensati on 08/24/2024 MR (mitral regurgitation) 08/24/2024 TR (tricuspid regurgitation) 08/24/2024 Hyperkalemia 08/11/2024 Bacteremia 08/07/2024 Acute renal failure (ARF) 07/31/2024 Pericardial effusion 07/30/2024 Atrial flutter with rapid ventricular response 0 07/30/2024 Mycoplasma pneumonia 05/15/2024 ESRD (end stage renal disease) 05/15/2024 Dyspnea 05/15/2024 Hepatitis C 05/15/2024 Smoker 05/15/2024 Marijuana abuse 05/15/2024 Ileus 05/15/2024 Chronic bilateral pleural effusions 05/15/2024 Anemia 05/15/2024 Hypertensive emergency 05/06/2024 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 Date Type Department Care Team Description 10/10/2024 Patient Outreach [facility] Medicine Specialties [address], [address] Wing [place] [phone] Deirdre Gandara 09/30/2024 Patient Outreach [facility] Medicine Specialties [address], [address] [place] [phone] Caden Tracee N 09/29/2024 Telephone [facility] Specialties [address], [address] [place] [address] None, None 09/24/2024 9:32 PM EDT - 09/24/2024 11:03 PM EDT Emergency [facility] Emergency Department [address] [place] [address] ESRD on dialysis ([facility]) (Primary Dx); Chronic anemia Discharge Disposition: Home or Self Care 09/24/2024 Travel 09/24/2024 Patient Outreach [facility] Medicine Specialties [address] [place] [phone] Kalee Cardona 09/18/2024 Telephone [facility] Specialties [address] [place] [address] Angeles Carvalho, RN 09/17/2024 Orders Only External Location [address] [place] [address] Deirdre Hou 09/17/2024 Patient Outreach [facility] Medicine Specialties [address] [place] [address] Deirdre Gandara 09/10/2024 Travel 09/09/2024 Orders Only [facility] Nephrology, Bone & Mineral Metabolism [address], [address] [place] [phone] Rosie Charlton MD ESRD (end stage renal disease) ([facility]) (Primary Dx) 09/09/2024 Orders Only [facility] Nephrology, Bone & Mineral Metabolism [address], [address] [place] [phone] Rosie Charlton MD ESRD (end stage renal disease) ([facility]) (Primary Dx) 09/06/2024 Travel 09/05/2024 11:15 AM EDT Office Visit [facility] Adult Dentistry [address] [place] [address] Allie Kong, DDS Pain (Primary Dx) 09/05/2024 Travel 09/04/2024 Travel 09/03/2024 Patient Outreach [facility] Medicine Specialties [address] [place] [address] Kalee Cardona 09/02/2024 Travel 08/30/2024 Travel 08/29/2024 Travel 08/28/2024 Travel 08/26/2024 Travel 08/25/2024 1:14 PM EDT Anesthesia Event Cardiac [employer] Supervisor [address] [place] [phone] Naveen Saenz MD Mitchell, Shad A, CRNA, DNP 08/23/2024 Travel 08/22/2024 Travel 08/21/2024 Travel 08/20/2024 Patient Outreach [facility] Medicine Specialties [address] [place] [address] Tracee Negrete 08/19/2024 Travel 08/17/2024 Travel 08/16/2024 Travel 08/14/2024 Travel 08/13/2024 Patient Outreach [facility] Medicine Specialties [address] [place] [address] Tracee Negrete N 08/13/2024 Travel 08/12/2024 Travel 08/11/2024 Travel 08/10/2024 Travel 08/09/2024 Travel 08/08/2024 Travel 08/07/2024 Travel 08/06/2024 Travel 08/04/2024 Lab Requisition [facility] [address] [place] [phone] Popeye Fernando MD Encounter for general adult medical examination without abnormal findings 08/04/2024 Travel 08/03/2024 Travel 08/02/2024 Travel 08/01/2024 Travel 07/31/2024 Travel 07/30/2024 Travel from Last 3 Months Social History Tobacco Use Types Packs/Day Years Used Date Smoking Tobacco: Every Day Cigarettes 1 17.7 Started: 2007 Passive Smoke Exposure: Past Smokeless Tobacco: Never Tobacco Cessation:Ready to Q uit: Not Asked; Counseling Given: Not Answered Alcohol Use Standard Drinks/Week Comments Defer 0 [...] How often do you attend [facility] or lutheran services? Patient unable to answer 05/07/2024 Do you belong to any clubs o r organizations such as quaker groups, unions, fraternal or athletic groups, or [...] Never 07/31/2024 How often do you attend quaker or lutheran serv ices? Never 07/31/2024 Do you belong to any clubs o r organizations such as quaker groups, unions, fraternal or athletic groups, or [...] medical care, and heating? Very hard 07/31/2024 [facility] - Occupational Stress [...] time in the past 12 m [facility], were you homeless or living in a chcf (including now)? Yes 07/31/2024 CAGE ASSESSMENT Answer [...] drink first t terri in the morning ([employer]) to steady your nerves or to get [...] on file Sexual Orientation Not on file Last Filed Vital Signs Vital Sign Reading Time Taken Comments Blood Pressure 126/91 09/24/2024 10:55 PM EDT Pulse 88 09/24/2024 10:55 PM EDT Temperature 36.7 C (98.1 F) 09/24/2024 10:55 PM EDT Respiratory Rate 17 09/24/2024 10:55 PM EDT Oxygen Saturation 98% 09/24/2024 10:55 PM EDT Inhaled Oxygen Concentration - - Weight 92.1 kg (203 lb 0.7 oz) 09/08/2024 6:00 A M EDT Height 182.9 cm (6') 09/24/2024 8:27 PM EDT Body Mass Index 28.33 09/04/2024 10:00 AM EDT Plan of Treatment Upcoming Encounters Date Type Department Care Team (Late st Contact Info) Description 10/13/2024 8:00 AM EDT Office Visit [facility] [address] [place] [address] 12/30/2024 3:40 PM EST Office Visit [facility] [address] [place] [address] Daniel Parsons MD [address] [place] [address] Health Maintenance Due Date Last Done Comments Dental Oral Exam 1982 Dental Prophylaxis 1982 Dental X-Ray: Bitewings 1982 Dental X-Ray: Full Mouth 1982 [facility]-Depression Screening 1982 [facility]-/Child/Adol SDOH Screenings 1982 [facility]-Varicella Vaccines (1 of 2 - 13+ 2-dose series) 1995 [facility]-DTaP,Tdap,and Td Vaccines (1 - Tdap) 2001 [facility]-Hepatitis A Vaccines (1 of 2 - Risk 2-dose series) 2001 [facility]-Pneumococcal Vaccine: Pediatrics (0 to 5 Years) and At-Risk Patients (6 to 49 Years) (1 of 2 - PCV) 2001 [facility]-Hepatitis B Vaccines (1 of 3 - Risk Dialysis 4-dose series) 2002 HPV Vaccines (1 - 3-dose SCDM series) 2009 [id number] Vaccine (1 - season) 2024 [facility]-Influenza Vaccine (#1) 2024 [facility]- SDOH Screenings 01/30/2025 [facility]-Adult SDOH Screenings 01/30/2025 07/31/2024 [facility]-Zoster Vaccines (1 of 2) 01/04/2032 [facility]-HIV Screening Completed 08/01/2024, , 05/06/2024, Additional history exists [facility]-Obesity Intervention Completed 025, 05/06/2024, 11/28/2022 [facility]-HIB Vaccines Aged Out No longer e ligible based on patient's age to complete this topic [facility]-IPV Vaccines Aged Out No longer e ligible based on patient's age to complete this topic [facility]-Rotavirus Vaccines Aged Out No lo nger eligible based on patient's age to complete this topic Goals Goal Patient Goal Type Associated Problems Recent Progress Patient-Stated? Author Autogenerat ed Goal Care Plan Autogenerated Problem No Sergo Pedroza Autogenerat ed Goal Care Plan Autogenerated Problem No Leisa Anaya RN Procedures Procedure Name Priority Date/Time Associated Diagnosis Comments MAGNESIUM, PLASMA STAT 09/24/2024 10:06 PM EDT COMPREHENSIVE METABOLIC PANEL, PLASMA STAT 09/24/2024 10:06 PM EDT PROTHROMBIN TIME(PT) / INR STAT 09/24/2024 10:06 PM EDT CBC WITH AUTO DIFFERENTIAL STAT 09/24/2024 10:06 PM EDT TYPE AND SCREEN STAT 09/24/2024 10:06 PM EDT ECG ADULT STAT 09/24/2024 8:[address] OUTSIDE IMAGES 09/17/2024 8:49 PM EDT HEPATITIS B CORE TOTAL AB (IGG AND IGM) Routine 09/10/2024 2:40 PM EDT ESRD (end stage renal disease) (CMS/HCC) HEPATITIS B SURFACE ANTIGEN Routine 09/10/2024 2:40 PM EDT ESRD (end stage renal disease) (CMS/HCC) MAGNESIUM, PLASMA Routine 09/08/2024 10:15 AM EDT COMPREHENSIVE METABOLIC PANEL, PLASMA Routine 09/08/2024 10:15 AM EDT CBC W/O DIFFERENTIAL Routine 09/08/2024 10:15 AM EDT CBC W/O DIFFERENTIAL Routine 09/07/2024 3:19 PM EDT BASIC METABOLIC PANEL, PLASMA Routine 09/07/2024 3:19 PM EDT C-REACTIVE PROTEIN, PLASMA Timed 09/06/2024 2:03 PM EDT BASIC METABOLIC PANEL, PLASMA Routine 09/06/2024 2:03 PM EDT CBC W/O DIFFERENTIAL Routine 09/06/2024 2:03 PM EDT HEMODIALYSIS INPATIENT Routine 1:40 PM EDT ESRD (end stage renal disease) ([facility]) 32 EXTRACTION, ERUPTED TOOTH OR EXPOSED ROOT [...] FOCUSED Routine 09/05/2024 11:15 AM EDT Pain PROTHROMBIN TIME(PT) / INR Routine 09/05/2024 6:48 AM EDT MAGNESIUM, PLASMA Routine 09/05/2024 6:48 AM EDT COMPREHENSIVE METABOLIC PANEL, PLASMA Routine 09/05/2024 6:48 AM EDT CBC W/O DIFFERENTIAL Routine 09/05/2024 6:48 AM EDT C-REACTIVE PROTEIN, PLASMA Timed 09/04/2024 9:17 AM EDT MAGNESIUM, PLASMA Routine 09/04/2024 9:17 AM EDT RENAL FUNCTION PANEL, PLASMA Routine 09/04/2024 9:17 AM EDT EXTRA TUBE LAVENDER TOP Routine 09/05/19 9:05 AM EDT EXTRA TUBES Routine 09/04/2024 9:05 AM EDT HEMODIALYSIS INPATIENT Routine 9:04 AM EDT ESRD (end stage renal disease) ([facility]) C-REACTIVE PROTEIN, PLASMA Pending Discharge 09/02/2024 8:41 AM EDT MAGNESIUM, PLASMA Pending Discharge 09/02/2024 8:41 AM EDT HEMODIALYSIS INPATIENT Routine 8:32 AM EDT ESRD (end stage renal disease) ([facility]) HEMODIALYSIS INPATIENT Routine 7:25 AM EDT ESRD (end stage renal disease) ([facility]) XR PANOREX Routine 08/29/2024 3:26 PM EDT MAGNESIUM, PLASMA Routine 08/29/2024 11:29 AM EDT MAGNESIUM, PLASMA Routine 08/28/2024 8:24 AM EDT RENAL FUNCTION PANEL, PLASMA Routine 08/28/2024 8:24 AM EDT CBC W/O DIFFERENTIAL Routine 08/28/2024 8:24 AM EDT C-REACTIVE PROTEIN, PLASMA Timed 08/28/2024 8:24 AM EDT HEMODIALYSIS INPATIENT Routine 8:05 AM EDT ESRD (end stage renal disease) ([facility]) POTASSIUM, PLASMA Pending Discharge 08/27/2024 9:04 AM EDT PROTHROMBIN TIME(PT) / INR Routine 08/27/2024 4:56 AM EDT PHOSPHORUS, PLASMA Routine 08/27/2024 4:56 AM EDT MAGNESIUM, PLASMA Routine 08/27/2024 4:56 AM EDT COMPREHENSIVE METABOLIC PANEL, PLASMA Routine 08/27/2024 4:56 AM EDT CBC W/O DIFFERENTIAL Routine 08/27/2024 4:56 AM EDT PROTHROMBIN TIME(PT) / INR Routine 08/26/2024 8:45 AM EDT PHOSPHORUS, PLASMA Routine 08/26/2024 8:45 AM EDT MAGNESIUM, PLASMA Routine 08/26/2024 8:45 AM EDT COMPREHENSIVE METABOLIC PANEL, PLASMA Routine 08/26/2024 8:45 AM EDT CBC W/O DIFFERENTIAL Routine 08/26/2024 8:45 AM EDT HEMODIALYSIS INPATIENT Routine 7:49 AM EDT ESRD (end stage renal disease) ([facility]) ECG ADULT Routine 08/25/2024 1:35 PM EDT CARDIOVERSION Routine 08/25/2024 1:27 PM EDT Atrial flutter with rapid ventricular response ([facility]) COMPREHENSIVE METABOLIC PANEL, PLASMA Routine 08/25/2024 12:11 PM EDT CBC W/O DIFFERENTIAL Routine 08/25/2024 12:11 PM EDT C-REACTIVE PROTEIN, PLASMA Timed 08/25/2024 12:11 PM EDT POCT GLUCOSE METER UNSOLICITED RESULTS Routine 08/25/2024 10:41 AM EDT POCT GLUCOSE METER UNSOLICITED RESULTS Routine 08/25/2024 5:48 AM EDT CBC W/O DIFFERENTIAL Routine 08/24/2024 5:01 PM EDT MAGNESIUM, PLASMA Routine 08/24/2024 5:01 PM EDT RENAL FUNCTION PANEL, PLASMA Routine 08/24/2024 5:01 PM EDT PROTHROMBIN TIME(PT) / INR Routine 08/23/2024 8:16 AM EDT PHOSPHORUS, PLASMA Routine 08/23/2024 8:16 AM EDT MAGNESIUM, PLASMA Routine 08/23/2024 8:16 AM EDT COMPREHENSIVE METABOLIC PANEL, PLASMA Routine 08/23/2024 8:16 AM EDT CBC W/O DIFFERENTIAL Routine 08/23/2024 8:16 AM EDT HEMODIALYSIS INPATIENT Routine 8:00 AM EDT ESRD (end stage renal disease) ([facility]) CT ANGIO CARDIAC STRUCTURE MORPHOLOGY Routine 08/22/2024 11:01 AM EDT RENAL FUNCTION PANEL, PLASMA Routine 08/22/2024 3:37 AM EDT PROTHROMBIN TIME(PT) / INR Routine 08/22/2024 3:37 AM EDT MAGNESIUM, PLASMA Routine 08/22/2024 3:37 AM EDT CBC W/O DIFFERENTIAL Routine 08/22/2024 3:37 AM EDT ECHO, ADULT TRANSTHORACIC LIMITED Routine 08/21/2024 2:20 PM EDT HEMODIALYSIS INPATIENT Routine 8:50 AM EDT ESRD (end stage renal disease) ([facility]) RENAL FUNCTION PANEL, PLASMA Routine 08/21/2024 3:17 AM EDT PROTHROMBIN TIME(PT) / INR Routine 08/21/2024 3:17 AM EDT MAGNESIUM, PLASMA Routine 08/21/2024 3:17 AM EDT CBC W/O DIFFERENTIAL Routine 08/21/2024 3:17 AM EDT C-REACTIVE PROTEIN, PLASMA Timed 08/21/2024 3:17 AM EDT HELICOBACTER PYLORI ANTIGEN Routine 08/20/2024 3:10 AM EDT COMPREHENSIVE METABOLIC PANEL, PLASMA Routine 08/20/2024 3:05 AM EDT PROTHROMBIN TIME(PT) / INR Routine 08/20/2024 3:05 AM EDT PHOSPHORUS, PLASMA Routine 08/20/2024 3:05 AM EDT MAGNESIUM, PLASMA Routine 08/20/2024 3:05 AM EDT CBC W/O DIFFERENTIAL Routine 08/20/2024 3:05 AM EDT VITAMIN D 25 HYDROXY Routine 08/20/2024 3:05 AM EDT PTH INTACT TOTAL Routine 08/20/2024 3:05 AM EDT IRON & TOTAL IRON BINDING CAPACITY, PLASMA (INCLUDES TRANSFERRIN) Routine 08/20/2024 3:05 AM EDT FERRITIN, SERUM Routine 08/20/2024 3:05 AM EDT ECG ADULT STAT 08/19/2024 5:50 PM EDT MAGNESIUM, PLASMA STAT 08/19/2024 5:37 PM EDT CBC W/O DIFFERENTIAL STAT 08/19/2024 5:37 PM EDT RENAL FUNCTION PANEL, PLASMA STAT 08/19/2024 5:37 PM EDT HEMODIALYSIS INPATIENT Routine 9:36 AM EDT ESRD (end stage renal disease) ([facility]) ECG ADULT Routine 08/19/2024 7:26 AM EDT POTASSIUM, PLASMA Routine 08/19/2024 6:20 AM EDT RENAL FUNCTION PANEL, PLASMA Routine 08/19/2024 3:14 AM EDT MAGNESIUM, PLASMA Routine 08/19/2024 3:14 AM EDT CBC W/O DIFFERENTIAL Routine 08/19/2024 3:14 AM EDT OXYGEN THERAPY Routine 08/18/2024 8:00 PM EDT OXYGEN THERAPY Routine 08/18/2024 8:00 AM EDT PEP THERAPY Routine 08/18/2024 7:31 AM EDT RENAL FUNCTION PANEL, PLASMA Routine 08/18/2024 4:17 AM EDT VANCOMYCIN, RANDOM, PLASMA Routine 08/18/2024 4:17 AM EDT CBC W/O DIFFERENTIAL Timed 08/18/2024 4:17 AM EDT C-REACTIVE PROTEIN, PLASMA Timed 08/18/2024 4:[address] ANGIO PULMONARY EMBOLISM Routine 08/17/2024 6:55 PM EDT SARS-COV-2, FLU A, FLU B, AND RSV Routine 08/17/2024 5:57 PM EDT BLOOD GAS PANEL, VENOUS STAT 08/18/19 9:09 AM EDT CBC W/O DIFFERENTIAL Timed 08/17/2024 9:09 AM EDT XR CHEST 1 VIEW STAT 08/17/2024 9:03 AM EDT OXYGEN THERAPY Routine 08/17/2024 8:00 AM EDT CBC W/O DIFFERENTIAL Timed 08/17/2024 4:35 AM EDT PHOSPHORUS, PLASMA Routine 08/17/2024 4:35 AM EDT MAGNESIUM, PLASMA Routine 08/17/2024 4:35 AM EDT COMPREHENSIVE METABOLIC PANEL, PLASMA Routine 08/17/2024 4:35 AM EDT CBC WITH AUTO DIFFERENTIAL Routine 08/17/2024 4:35 AM EDT OXYGEN THERAPY Routine 08/16/2024 8:00 PM EDT ECG ADULT Routine 08/16/2024 3:26 PM EDT POCT GLUCOSE METER UNSOLICITED RESULTS Routine 08/16/2024 1:06 PM EDT HEMODIALYSIS INPATIENT Routine 9:42 AM EDT ESRD (end stage renal disease) ([facility]) HEMOGLOBIN AND HEMATOCRIT, BLOOD STAT 08/16/2024 9:42 AM EDT CBC W/O DIFFERENTIAL Timed 08/16/2024 9:42 AM EDT OXYGEN THERAPY Routine 08/16/2024 8:00 AM EDT VANCOMYCIN, RANDOM, PLASMA Routine 08/16/2024 4:14 AM EDT CBC W/O DIFFERENTIAL Timed 08/16/2024 4:14 AM EDT PHOSPHORUS, PLASMA Routine 08/16/2024 4:14 AM EDT MAGNESIUM, PLASMA Routine 08/16/2024 4:14 AM EDT COMPREHENSIVE METABOLIC PANEL, PLASMA Routine 08/16/2024 4:14 AM EDT CBC WITH AUTO DIFFERENTIAL Routine 08/16/2024 4:14 AM EDT OXYGEN THERAPY Routine 08/15/2024 8:00 PM EDT CBC W/O DIFFERENTIAL Timed 08/15/2024 4:56 PM EDT TRANSFUSE RED BLOOD CELLS Routine 08/15/2024 9:08 AM EDT OXYGEN THERAPY Routine 08/15/2024 8:00 AM EDT CBC WITH AUTO DIFFERENTIAL Routine 08/15/2024 4:52 AM EDT TYPE AND SCREEN Routine 08/15/2024 4:52 AM EDT PREPARE RBC Routine 08/15/2024 4:40 AM EDT PHOSPHORUS, PLASMA Routine 08/15/2024 3:11 AM EDT MAGNESIUM, PLASMA Routine 08/15/2024 3:11 AM EDT COMPREHENSIVE METABOLIC PANEL, PLASMA Routine 08/15/2024 3:11 AM EDT CBC WITH AUTO DIFFERENTIAL Routine 08/15/2024 3:11 AM EDT VANCOMYCIN, RANDOM, PLASMA Routine 08/15/2024 3:11 AM EDT OXYGEN THERAPY Routine 08/14/2024 8:00 PM EDT HEMODIALYSIS INPATIENT Routine 1:22 PM EDT POCT GLUCOSE METER UNSOLICITED RESULTS Routine 08/14/2024 12:26 PM EDT POTASSIUM, PLASMA Routine 08/14/2024 8:18 AM EDT OXYGEN THERAPY Routine 08/14/2024 8:00 AM EDT POCT GLUCOSE METER UNSOLICITED RESULTS Routine 08/14/2024 6:28 AM EDT VANCOMYCIN, RANDOM, PLASMA Routine 08/14/2024 12:41 AM EDT PHOSPHORUS, PLASMA Routine 08/14/2024 12:41 AM EDT MAGNESIUM, PLASMA Routine 08/14/2024 12:41 AM EDT COMPREHENSIVE METABOLIC PANEL, PLASMA Routine 08/14/2024 12:41 AM EDT CBC WITH AUTO DIFFERENTIAL Routine 08/14/2024 12:41 AM EDT C-REACTIVE PROTEIN, PLASMA Timed 08/14/2024 12:41 AM EDT POCT GLUCOSE METER UNSOLICITED RESULTS Routine 08/14/2024 12:40 AM EDT OXYGEN THERAPY Routine 08/13/2024 8:00 PM EDT POCT GLUCOSE METER UNSOLICITED RESULTS Routine 08/13/2024 6:29 PM EDT IR TUNNELED CENTRAL VENOUS CATHETER PLACEMENT 5+ YEARS Routine 08/13/2024 5:04 PM EDT HEMOGLOBIN AND HEMATOCRIT, BLOOD Routine 08/13/2024 3:28 PM EDT POCT GLUCOSE METER UNSOLICITED RESULTS Routine 08/13/2024 1:07 PM EDT POCT GLUCOSE METER UNSOLICITED RESULTS Routine 08/13/2024 1:02 PM EDT POCT GLUCOSE METER UNSOLICITED RESULTS Routine 08/13/2024 12:19 PM EDT OXYGEN THERAPY Routine 08/13/2024 8:00 AM EDT XR ABDOMEN 1 VIEW Routine 08/13/2024 6:53 AM EDT POCT GLUCOSE METER UNSOLICITED RESULTS Routine 08/13/2024 3:12 AM EDT POCT GLUCOSE METER UNSOLICITED RESULTS Routine 08/13/2024 2:12 AM EDT VANCOMYCIN, RANDOM, PLASMA Add-On 08/13/2024 12:48 AM EDT IONIZED CALCIUM, WHOLE BLOOD Routine 08/13/2024 12:48 AM EDT PHOSPHORUS, PLASMA Routine 08/13/2024 12:48 AM EDT MAGNESIUM, PLASMA Routine 08/13/2024 12:48 AM EDT COMPREHENSIVE METABOLIC PANEL, PLASMA Routine 08/13/2024 12:48 AM EDT CBC WITH AUTO DIFFERENTIAL Routine 08/13/2024 12:48 AM EDT OXYGEN THERAPY Routine 08/12/2024 8:00 PM EDT POCT GLUCOSE METER UNSOLICITED RESULTS Routine 08/12/2024 5:15 PM EDT POCT GLUCOSE METER UNSOLICITED RESULTS Routine 08/12/2024 12:18 PM EDT XR CHEST 1 VIEW Routine 08/12/2024 8:49 AM EDT XR ABDOMEN 1 VIEW Routine 08/12/2024 8:49 AM EDT OXYGEN THERAPY Routine 08/12/2024 8:00 AM EDT POCT GLUCOSE METER UNSOLICITED RESULTS Routine 08/12/2024 5:52 AM EDT VANCOMYCIN, RANDOM, PLASMA Routine 08/12/2024 12:15 AM EDT PHOSPHORUS, PLASMA Routine 08/12/2024 12:15 AM EDT MAGNESIUM, PLASMA Routine 08/12/2024 12:15 AM EDT COMPREHENSIVE METABOLIC PANEL, PLASMA Routine 08/12/2024 12:15 AM EDT CBC WITH AUTO DIFFERENTIAL Routine 08/12/2024 12:15 AM EDT OXYGEN THERAPY Routine 08/11/2024 8:00 PM EDT HEMODIALYSIS INPATIENT Routine 2:58 PM EDT ECG ADULT Routine 08/11/2024 11:42 AM EDT OXYGEN THERAPY Routine 08/11/2024 8:00 AM EDT POCT GLUCOSE METER UNSOLICITED RESULTS Routine 08/11/2024 6:31 AM EDT VANCOMYCIN, RANDOM, PLASMA Routine 08/11/2024 2:06 AM EDT PHOSPHORUS, PLASMA Routine 08/11/2024 2:06 AM EDT MAGNESIUM, PLASMA Routine 08/11/2024 2:06 AM EDT COMPREHENSIVE METABOLIC PANEL, PLASMA Routine 08/11/2024 2:06 AM EDT CBC WITH AUTO DIFFERENTIAL Routine 08/11/2024 2:06 AM EDT C-REACTIVE PROTEIN, PLASMA Timed 08/11/2024 2:06 AM EDT POCT GLUCOSE METER UNSOLICITED RESULTS Routine 08/11/2024 12:07 AM EDT OXYGEN THERAPY Routine 08/10/2024 8:00 PM EDT [facility] C[facility], E/M 30-74 MINUTES Routine 08/10/2024 4:07 PM EDT ESRD (end stage renal disease) ([facility] [place]) Bacteremia Opioid use disorder, severe, dependence ([facility] [place]) Substance use disorder Acute respiratory failure with hypoxia Acute on chronic systolic heart failure ([facility] [place]) Pericardial effusion UGIB (upper gastrointestinal bleed) POCT GLUCOSE METER UNSOLICITED RESULTS Routine 08/10/2024 12:31 PM EDT OXYGEN THERAPY Routine 08/10/2024 8:00 AM EDT XR ABDOMEN 1 VIEW Routine 08/10/2024 4:43 AM EDT VANCOMYCIN, RANDOM, PLASMA Routine 08/10/2024 1:53 AM EDT PHOSPHORUS, PLASMA Routine 08/10/2024 1:53 AM EDT MAGNESIUM, PLASMA Routine 08/10/2024 1:53 AM EDT CBC WITH AUTO DIFFERENTIAL Routine 08/10/2024 1:53 AM EDT COMPREHENSIVE METABOLIC PANEL, PLASMA Routine 08/10/2024 1:53 AM EDT OXYGEN THERAPY Routine 08/09/2024 8:00 PM EDT ECG ADULT Routine 08/09/2024 7:43 PM EDT POCT GLUCOSE METER UNSOLICITED RESULTS Routine 08/09/2024 6:13 PM EDT HEMOGLOBIN AND HEMATOCRIT, BLOOD Routine 08/09/2024 3:19 PM EDT RENAL FUNCTION PANEL, PLASMA Routine 08/09/2024 3:19 PM EDT OXYGEN THERAPY Routine 08/09/2024 2:16 PM EDT OXYGEN THERAPY Routine 08/09/2024 2:16 PM EDT WOUND OSTOMY EVAL AND TREAT Routine 08/09/2024 1:19 PM EDT EXTUBATION Routine 08/09/2024 1:05 PM EDT POCT GLUCOSE METER UNSOLICITED RESULTS Routine 08/09/2024 11:00 AM EDT HEMODIALYSIS INPATIENT Routine 10:06 AM EDT [place] CRITICAL CARE, E/M 30-74 MINUTES Routine 08/09/2024 8:44 AM EDT ESRD (end stage renal disease) ([facility]) Bacteremia Opioid use disorder, severe, dependence ([facility]) Substance use disorder Acute respiratory failure with hypoxia Acute on chronic systolic heart failure ([facility]) Pericardial effusion On mechanically assisted ventilation ([facility]) UGIB (upper gastrointestinal bleed) POCT GLUCOSE METER UNSOLICITED RESULTS Routine 08/09/2024 6:15 AM EDT XR ABDOMEN 1 VIEW Routine 08/09/2024 3:09 AM EDT XR CHEST 1 VIEW Routine 08/09/2024 3:08 AM EDT VANCOMYCIN, RANDOM, PLASMA Routine 08/09/2024 1:03 AM EDT PHOSPHORUS, PLASMA Routine 08/09/2024 1:03 AM EDT MAGNESIUM, PLASMA Routine 08/09/2024 1:03 AM EDT COMPREHENSIVE METABOLIC PANEL, PLASMA Routine 08/09/2024 1:03 AM EDT POCT GLUCOSE METER UNSOLICITED RESULTS Routine 08/09/2024 12:44 AM EDT CBC WITH AUTO DIFFERENTIAL Routine 08/09/2024 12:38 AM EDT PROTHROMBIN TIME(PT) / INR Routine 08/09/2024 12:38 AM EDT POCT GLUCOSE METER UNSOLICITED RESULTS Routine 08/08/2024 6:33 PM EDT POCT GLUCOSE METER UNSOLICITED RESULTS Routine 08/08/2024 5:38 PM EDT ECG ADULT Routine 08/08/2024 5:27 PM EDT C-REACTIVE PROTEIN, PLASMA Add-On 08/08/2024 4:17 PM EDT ACUTE HEPATITIS PANEL Routine 08/08/2024 4:17 PM EDT HEPATITIS B SURFACE ANTIBODY, QUANTITATIVE Routine 08/08/2024 4:17 PM EDT RENAL FUNCTION PANEL, PLASMA Routine 08/08/2024 4:17 PM EDT HEMODIALYSIS INPATIENT Routine 4:02 PM EDT CVC TRIPLE LUMEN (SMARTFORM LINK) Routine 08/08/2024 3:00 PM EDT Sepsis with acute renal failure without septic shock, due to unspecified organism, unspecified acute renal failure type (CMS/HCC) HC INSERT NON-TUNNEL CV CATH Routine 08/08/2024 3:00 PM EDT Sepsis with acute renal failure without septic shock, due to unspecified organism, unspecified acute renal failure type (CMS/HCC) KS INSERT NON-TUNNEL CV CATH Routine 08/08/2024 3:00 PM EDT Sepsis with acute renal failure without septic shock, due to unspecified organism, unspecified acute renal failure type (CMS/HCC) XR CHEST 1 VIEW STAT 08/08/2024 2:23 PM EDT KS CRITICAL CARE, E/M 30-74 MINUTES Routine 08/08/2024 12:14 PM EDT ESRD (end stage renal disease) (CMS/HCC) Bacteremia Opioid use disorder, severe, dependence (CMS/HCC) Substance use disorder Acute respiratory failure with hypoxia Acute on chronic systolic heart failure (CMS/HCC) Pericardial effusion On mechanically assisted ventilation (CMS/HCC) UGIB (upper gastrointestinal bleed) POCT GLUCOSE METER UNSOLICITED RESULTS Routine 08/08/2024 12:05 PM EDT XR ABDOMEN 1 VIEW Routine 08/08/2024 10:30 AM EDT VENTILATOR - ADULT Routine 08/08/2024 8:00 AM EDT END TIDAL CO2 MONITORING Routine 08/08/2024 8:00 AM EDT POCT GLUCOSE METER UNSOLICITED RESULTS Routine 08/08/2024 6:23 AM EDT POCT GLUCOSE METER UNSOLICITED RESULTS Routine 08/08/2024 6:02 AM EDT SBT - SPONTANEOUS BREATHING TRIAL Routine 08/08/2024 6:00 AM EDT LACTATE DEHYDROGENASE, PLASMA Add-On 08/08/2024 12:16 AM EDT PHOSPHORUS, PLASMA Add-On 08/08/2024 12:16 AM EDT MAGNESIUM, PLASMA Add-On 08/08/2024 12:16 AM EDT COMPREHENSIVE METABOLIC PANEL, PLASMA Add-On 08/08/2024 12:16 AM EDT PROTHROMBIN TIME(PT) / INR Routine 08/08/2024 12:16 AM EDT HEPATIC FUNCTION PANEL Routine 12:16 AM EDT CBC W/O DIFFERENTIAL Routine 08/08/2024 12:16 AM EDT VANCOMYCIN, RANDOM, PLASMA Routine 08/08/2024 12:16 AM EDT POCT GLUCOSE METER UNSOLICITED RESULTS Routine 08/08/2024 12:12 AM EDT VENTILATOR - ADULT Routine 08/07/2024 8:00 PM EDT END TIDAL CO2 MONITORING Routine 08/07/2024 8:00 PM EDT VENTILATOR - ADULT Routine 08/07/2024 7:45 PM EDT VENTILATOR - ADULT Routine 08/07/2024 7:45 PM EDT FUNGAL CULTURE, STERILE BODY FLUID (NOT CSF) AND AVELINA Routine 08/07/2024 6:20 PM EDT AFB CULTURE, NON RESPIRATORY SOURCE AND ACID FAST STAIN Routine 08/07/2024 6:20 PM EDT BODY FLUID CULTURE AND GRAM STAIN Routine 08/07/2024 6:20 PM EDT POCT GLUCOSE METER UNSOLICITED RESULTS Routine 08/07/2024 6:02 PM EDT RENAL FUNCTION PANEL, PLASMA Routine 08/07/2024 5:09 PM EDT NON-GYNECOLOGIC CYTOLOGY Routine 08/07/2024 4:47 PM EDT CHYLOMICRON ELECTROPHORESIS (REFLEX ONLY) Routine 08/07/2024 4:47 PM EDT BODY FLUID, CYTOSPIN, PATHOLOGIST INTERPRETATION Routine 08/07/2024 4:47 PM EDT MISCELLANEOUS LAB TEST (SO) Routine 08/07/2024 4:47 PM EDT AMYLASE, BODY FLUID (SO) Routine 08/07/2024 4:47 PM EDT PROTEIN, TOTAL, BODY FLUID(SO) Routine 08/07/2024 4:47 PM EDT LACTATE DEHYDROGENASE TOTAL, BODY FLUID (SO) Routine 08/07/2024 4:47 PM EDT ALBUMIN,OTHER,MISC FLUID Routine 08/07/2024 4:47 PM EDT GLUCOSE, BODY FLUID (SO) Routine 08/07/2024 4:47 PM EDT TRIGLYCERIDES BF WITH RFLX TO CHYLO (SO) Routine 08/07/2024 4:47 PM EDT CHOLESTEROL FLUID (SO) Routine 4:47 PM EDT BODY FLUID CELL COUNT W/ MANUAL DIFFERENTIAL Routine 08/07/2024 4:47 PM EDT PERICARDIOCENTESIS Routine 08/07/2024 4:37 PM EDT Pericardial effusion POCT GLUCOSE METER UNSOLICITED RESULTS Routine 08/07/2024 2:38 PM EDT POCT GLUCOSE METER UNSOLICITED RESULTS Routine 08/07/2024 12:[address] ABDOMEN PELVIS WO IV CONTRAST STAT 08/07/2024 11:43 AM EDT XR ABDOMEN 1 VIEW STAT 08/07/2024 9:46 AM EDT ECG ADULT STAT 08/07/2024 9:19 AM EDT KS CRITICAL CARE, E/M 30-74 MINUTES Routine 08/07/2024 8:12 AM EDT ESRD (end stage renal disease) ([facility]) Bacteremia SVT (supraventricular tachycardia) ([facility]/HCC) Opioid use disorder, severe, dependence ([facility]/HCC) Substance use disorder Acute respiratory failure with hypoxia Acute on chronic systolic heart failure ([facility]/HCC) Pericardial effusion On mechanically assisted ventilation ([facility]) UGIB (upper gastrointestinal bleed) END TIDAL CO2 MONITORING Routine 08/07/2024 8:00 AM EDT SBT - SPONTANEOUS BREATHING TRIAL Routine 08/07/2024 6:00 AM EDT POCT GLUCOSE METER UNSOLICITED RESULTS Routine 08/07/2024 5:18 AM EDT TRIGLYCERIDES, PLASMA Routine 08/07/2024 5:13 AM EDT XR ABDOMEN 1 VIEW Routine 08/07/2024 4:58 AM EDT ECG ADULT Routine 08/07/2024 4:02 AM EDT VENTILATOR - ADULT Routine 08/07/2024 1:49 AM EDT VENTILATOR - ADULT Routine 08/07/2024 1:49 AM EDT VANCOMYCIN, RANDOM, PLASMA Routine 08/07/2024 12:12 AM EDT CBC W/O DIFFERENTIAL Timed 08/07/2024 12:12 AM EDT COMPREHENSIVE METABOLIC PANEL, PLASMA Routine 08/07/2024 12:12 AM EDT PHOSPHORUS, PLASMA Routine 08/07/2024 12:12 AM EDT MAGNESIUM, PLASMA Routine 08/07/2024 12:12 AM EDT POCT GLUCOSE METER UNSOLICITED RESULTS Routine 08/06/2024 11:03 PM EDT END TIDAL CO2 MONITORING Routine 08/06/2024 8:00 PM EDT POCT GLUCOSE METER UNSOLICITED RESULTS Routine 08/06/2024 5:41 PM EDT HC ABDOMINAL PARACENTESIS DIAGNOSIS/THERAPY W IMAGING GUIDANCE Routine 08/06/2024 5:13 PM EDT Bacteremia Sepsis with acute renal failure without septic shock, due to unspecified organism, unspecified acute renal failure type (CMS/HCC) KS ABDOM PARACENTESIS DX/THER W IMAGING GUIDANCE Routine 08/06/2024 5:13 PM EDT Bacteremia Sepsis with acute renal failure without septic shock, due to unspecified organism, unspecified acute renal failure type (CMS/HCC) BODY FLUID, CYTOSPIN, PATHOLOGIST INTERPRETATION Routine 08/06/2024 4:55 PM EDT BODY FLUID CELL COUNT W/ MANUAL DIFFERENTIAL Routine 08/06/2024 4:55 PM EDT NON-GYNECOLOGIC CYTOLOGY Routine 08/06/2024 4:54 PM EDT GLUCOSE, PERITONEAL FLUID Routine 08/06/2024 4:54 PM EDT LACTATE DEHYDROGENASE, PERITONEAL FLUID Routine 08/06/2024 4:54 PM EDT TOTAL PROTEIN, PERITONEAL FLUID Routine 08/06/2024 4:54 PM EDT ALBUMIN, PERITONEAL FLUID Routine 08/06/2024 4:54 PM EDT BODY FLUID CULTURE AND GRAM STAIN Routine 08/06/2024 4:54 PM EDT CBC W/O DIFFERENTIAL Timed 08/06/2024 3:36 PM EDT RENAL FUNCTION PANEL, PLASMA Routine 08/06/2024 2:21 PM EDT VANCOMYCIN, RANDOM, PLASMA Routine 08/06/2024 2:21 PM EDT KS CRITICAL CARE, E/M 30-74 MINUTES Routine 08/06/2024 12:09 PM EDT ESRD (end stage renal disease) ([facility]) Bacteremia Opioid use disorder, severe, dependence ([facility]) Substance use disorder Acute respiratory failure with hypoxia Acute on chronic systolic heart failure ([facility]) Pericardial effusion On mechanically assisted ventilation ([facility]) UGIB (upper gastrointestinal bleed) POCT GLUCOSE METER UNSOLICITED RESULTS Routine 08/06/2024 12:02 PM EDT EGD Routine 08/06/2024 9:27 AM EDT Gastrointestinal hemorrhage, unspecified gastrointestinal hemorrhage type END TIDAL CO2 MONITORING Routine 08/06/2024 8:00 AM EDT POCT GLUCOSE METER UNSOLICITED RESULTS Routine 08/06/2024 6:50 AM EDT SBT - SPONTANEOUS BREATHING TRIAL Routine 08/06/2024 6:00 AM EDT HEMOGLOBIN AND HEMATOCRIT, BLOOD Timed 08/06/2024 5:31 AM EDT POCT GLUCOSE METER UNSOLICITED RESULTS Routine 08/06/2024 5:30 AM EDT POCT GLUCOSE METER UNSOLICITED RESULTS Routine 08/06/2024 12:56 AM EDT PROTHROMBIN TIME(PT) / INR Routine 08/06/2024 12:23 AM EDT PHOSPHORUS, PLASMA Routine 08/06/2024 12:23 AM EDT MAGNESIUM, PLASMA Routine 08/06/2024 12:23 AM EDT COMPREHENSIVE METABOLIC PANEL, PLASMA Routine 08/06/2024 12:23 AM EDT HEMOGLOBIN AND HEMATOCRIT, BLOOD Timed 08/06/2024 12:23 AM EDT POCT GLUCOSE METER UNSOLICITED RESULTS Routine 08/06/2024 12:20 AM EDT VENTILATOR - ADULT Routine 08/05/2024 8:00 PM EDT END TIDAL CO2 MONITORING Routine 08/05/2024 8:00 PM EDT BLOOD CULTURE (AEROBIC/ANAEROBIC SET) STAT 08/05/2024 6:41 PM EDT HEMOGLOBIN AND HEMATOCRIT, BLOOD Timed 08/05/2024 6:28 PM EDT POCT GLUCOSE METER UNSOLICITED RESULTS Routine 08/05/2024 5:52 PM EDT VANCOMYCIN, RANDOM, PLASMA Routine 08/05/2024 2:23 PM EDT BASIC METABOLIC PANEL, PLASMA Timed 08/05/2024 2:23 PM EDT HEMOGLOBIN AND HEMATOCRIT, BLOOD Routine 08/05/2024 1:38 PM EDT PROTHROMBIN TIME(PT) / INR Routine 08/05/2024 12:00 PM EDT TEG GLOBAL HEMOSTASIS WITH LYSIS Routine 08/05/2024 12:00 PM EDT POCT GLUCOSE METER UNSOLICITED RESULTS Routine 08/05/2024 11:58 AM EDT POCT GLUCOSE METER UNSOLICITED RESULTS Routine 08/05/2024 11:18 AM EDT KS CRITICAL CARE, E/M 30-74 MINUTES Routine 08/05/2024 11:10 AM EDT ESRD (end stage renal disease) ([facility]) Bacteremia Opioid use disorder, severe, dependence ([facility]) Substance use disorder Acute respiratory failure with hypoxia Acute on chronic systolic heart failure ([facility]) Pericardial effusion On mechanically assisted ventilation ([facility]) UGIB (upper gastrointestinal bleed) TRANSFUSE RED BLOOD CELLS Routine 08/05/2024 10:29 AM EDT HEPATIC FUNCTION PANEL Add-On 8:59 AM EDT BASIC METABOLIC PANEL, PLASMA Timed 08/05/2024 8:59 AM EDT POCT GLUCOSE METER UNSOLICITED RESULTS Routine 08/05/2024 8:58 AM EDT TRANSFUSE RED BLOOD CELLS Routine 08/05/2024 8:09 AM EDT VENTILATOR - ADULT Routine 08/05/2024 8:00 AM EDT END TIDAL CO2 MONITORING Routine 08/05/2024 8:00 AM EDT TYPE AND SCREEN Routine 08/05/2024 6:29 AM EDT PREPARE RBC Routine 08/05/2024 6:16 AM EDT SBT - SPONTANEOUS BREATHING TRIAL Routine 08/05/2024 6:00 AM EDT COMPREHENSIVE METABOLIC PANEL, PLASMA STAT 08/05/2024 5:49 AM EDT CBC WITH AUTO DIFFERENTIAL STAT 08/05/2024 5:49 AM EDT CBC WITH AUTO DIFFERENTIAL Routine 08/05/2024 4:56 AM EDT BASIC METABOLIC PANEL, PLASMA Timed 08/05/2024 4:56 AM EDT POCT GLUCOSE METER UNSOLICITED RESULTS Routine 08/05/2024 1:17 AM EDT BASIC METABOLIC PANEL, PLASMA Timed 08/05/2024 12:16 AM EDT POCT GLUCOSE METER UNSOLICITED RESULTS Routine 08/05/2024 12:15 AM EDT VENTILATOR - ADULT Routine 08/04/2024 11:36 PM EDT VENTILATOR - ADULT Routine 08/04/2024 11:36 PM EDT BASIC METABOLIC PANEL, PLASMA Timed 08/04/2024 8:30 PM EDT BLOOD CULTURE (AEROBIC/ANAEROBIC SET) Pending Discharge 08/04/2024 8:30 PM EDT END TIDAL CO2 MONITORING Routine 08/04/2024 8:00 PM EDT MULTI DRUG RESISTANCE TEST Routine 08/04/2024 5:45 PM EDT Encounter for general adult medical examination without abnormal findings BASIC METABOLIC PANEL, PLASMA Pending Discharge 08/04/2024 4:39 PM EDT CVC SINGLE LUMEN (SMARTFORM LINK) Routine 08/04/2024 4:20 PM EDT Sepsis with acute renal failure without septic shock, due to unspecified organism, unspecified acute renal failure type (CMS/HCC) HC INSERT NON-TUNNEL CV CATH Routine 08/04/2024 4:20 PM EDT Sepsis with acute renal failure without septic shock, due to unspecified organism, unspecified acute renal failure type (CMS/HCC) KS INSERT NON-TUNNEL CV CATH Routine 08/04/2024 4:20 PM EDT Sepsis with acute renal failure without septic shock, due to unspecified organism, unspecified acute renal failure type (CMS/HCC) XR CHEST 1 VIEW STAT 08/04/2024 4:05 PM EDT KS CRITICAL CARE, E/M 30-74 MINUTES Routine 08/04/2024 1:23 PM EDT ESRD (end stage renal disease) ([facility]) Bacteremia Opioid use disorder, severe, dependence ([facility]) Substance use disorder Acute respiratory failure with hypoxia Acute on chronic systolic heart failure ([facility]) Pericardial effusion On mechanically assisted ventilation ([facility]) SBT - SPONTANEOUS BREATHING TRIAL Routine 08/04/2024 11:31 AM EDT END TIDAL CO2 MONITORING Routine 08/04/2024 11:31 AM EDT END TIDAL CO2 MONITORING Routine 08/04/2024 11:31 AM EDT END TIDAL CO2 MONITORING Routine 08/04/2024 11:31 AM EDT VENTILATOR - ADULT Routine 08/04/2024 11:31 AM EDT VENTILATOR - ADULT Routine 08/04/2024 11:31 AM EDT BETA GLUCAN SERUM (SO) Pending Discharge 08/04/2024 11:24 AM EDT BASIC METABOLIC PANEL, PLASMA Pending Discharge 08/04/2024 11:24 AM EDT BLOOD CULTURE (AEROBIC/ANAEROBIC SET) Pending Discharge 08/04/2024 11:24 AM EDT XR CHEST 1 VIEW STAT 08/04/2024 9:04 AM EDT BLOOD GAS PANEL, ARTERIAL Pending Discharge 08/04/2024 8:18 AM EDT BASIC METABOLIC PANEL, PLASMA Pending Discharge 08/04/2024 8:14 AM EDT TRIGLYCERIDES, PLASMA Pending Discharge 08/04/2024 8:14 AM EDT XR ABDOMEN 1 VIEW Routine 08/04/2024 5:50 AM EDT BEDSIDE BRONCHOSCOPY Routine 08/04/2024 5:32 AM EDT Dyspnea, unspecified type CBC WITH AUTO DIFFERENTIAL Pending Discharge 08/04/2024 5:11 AM EDT BASIC METABOLIC PANEL, PLASMA Timed 08/04/2024 5:11 AM EDT INTUBATION Routine 08/04/2024 4:47 AM EDT Sepsis with acute renal failure without septic shock, due to unspecified organism, unspecified acute renal failure type (CMS/HCC) Dyspnea, unspecified type BASIC METABOLIC PANEL, PLASMA Timed 08/04/2024 12:13 AM EDT VANCOMYCIN, RANDOM, PLASMA Routine 08/03/2024 7:55 PM EDT BASIC METABOLIC PANEL, PLASMA Timed 08/03/2024 7:55 PM EDT ECG ADULT STAT 08/03/2024 6:38 PM EDT POCT GLUCOSE METER UNSOLICITED RESULTS Routine 08/03/2024 6:15 PM EDT BASIC METABOLIC PANEL, PLASMA Timed 08/03/2024 4:03 PM EDT POCT GLUCOSE METER UNSOLICITED RESULTS Routine 08/03/2024 12:35 PM EDT POCT GLUCOSE METER UNSOLICITED RESULTS Routine 08/03/2024 12:01 PM EDT BASIC METABOLIC PANEL, PLASMA Timed 08/03/2024 11:54 AM EDT KS CRITICAL CARE, E/M 30-74 MINUTES Routine 08/03/2024 10:38 AM EDT Acute renal failure with tubular necrosis (CMS/HCC) Acute renal failure with other specified pathological lesion in kidney (CMS/HCC) TROPONIN T, HIGH SENSITIVITY, 2 HOUR, PLASMA Timed 08/03/2024 9:00 AM EDT ECHO, ADULT TRANSTHORACIC LIMITED STAT 08/03/2024 8:38 AM EDT OXYGEN THERAPY Routine 08/03/2024 8:00 AM EDT POCT GLUCOSE METER UNSOLICITED RESULTS Routine 08/03/2024 7:50 AM EDT POCT ARTERIAL BLOOD GAS GEM UNSOLICITED RESULTS Routine 08/03/2024 7:46 AM EDT CBC WITH AUTO DIFFERENTIAL STAT 08/03/2024 7:41 AM EDT HC INSERT CATH,ART,PERCUT,SHORTTE RM Routine 08/03/2024 7:01 AM EDT SVT (supraventricular tachycardia) (CMS/HCC) KS INSERT CATH,ART,PERCUT,SHORTTE RM Routine 08/03/2024 7:01 AM EDT SVT (supraventricular tachycardia) (CMS/HCC) MAGNESIUM, PLASMA Add-On 08/03/2024 6:44 AM EDT BASIC METABOLIC PANEL, PLASMA Timed 08/03/2024 6:44 AM EDT TROPONIN T, HIGH SENSITIVITY, 0 HOUR, PLASMA, REFLEX TO 2 HOUR STAT 08/03/2024 6:44 AM EDT ECG ADULT STAT 08/03/2024 6:37 AM EDT CVC TRIPLE LUMEN (SMARTFORM LINK) Routine 08/03/2024 6:26 AM EDT Sepsis with acute renal failure without septic shock, due to unspecified organism, unspecified acute renal failure type (CMS/HCC) HC INSERT NON-TUNNEL CV CATH Routine 08/03/2024 6:26 AM EDT Sepsis with acute renal failure without septic shock, due to unspecified organism, unspecified acute renal failure type (CMS/HCC) KS INSERT NON-TUNNEL CV CATH Routine 08/03/2024 6:26 AM EDT Sepsis with acute renal failure without septic shock, due to unspecified organism, unspecified acute renal failure type ([facility]) VANCOMYCIN, RANDOM, PLASMA Add-On 08/03/2024 4:18 AM EDT BASIC METABOLIC PANEL, PLASMA Timed 08/03/2024 4:18 AM EDT POCT ARTERIAL BLOOD GAS GEM UNSOLICITED RESULTS Routine 08/03/2024 12:21 AM EDT RENAL FUNCTION PANEL, PLASMA STAT 08/02/2024 9:36 PM EDT IONIZED CALCIUM, WHOLE BLOOD Routine 08/02/2024 9:36 PM EDT PHOSPHORUS, PLASMA Routine 08/02/2024 9:36 PM EDT MAGNESIUM, PLASMA Routine 08/02/2024 9:36 PM EDT BASIC METABOLIC PANEL, PLASMA Timed 08/02/2024 9:36 PM EDT XR CHEST 1 VIEW STAT 08/02/2024 9:25 PM EDT ECG ADULT STAT 08/02/2024 9:16 PM EDT OXYGEN THERAPY Routine 08/02/2024 8:00 PM EDT VANCOMYCIN, RANDOM, PLASMA Routine 08/02/2024 7:53 PM EDT BASIC METABOLIC PANEL, PLASMA Timed 08/02/2024 7:53 PM EDT POCT GLUCOSE METER UNSOLICITED RESULTS Routine 08/02/2024 6:26 PM EDT BASIC METABOLIC PANEL, PLASMA Timed 08/02/2024 4:56 PM EDT POCT GLUCOSE METER UNSOLICITED RESULTS Routine 08/02/2024 11:38 AM EDT BASIC METABOLIC PANEL, PLASMA Timed 08/02/2024 11:35 AM EDT OXYGEN THERAPY Routine 08/02/2024 8:00 AM EDT BASIC METABOLIC PANEL, PLASMA Timed 08/02/2024 8:00 AM EDT POCT GLUCOSE METER UNSOLICITED RESULTS Routine 08/02/2024 5:44 AM EDT BASIC METABOLIC PANEL, PLASMA Timed 08/02/2024 3:41 AM EDT CBC W/O DIFFERENTIAL Routine 08/02/2024 12:27 AM EDT BASIC METABOLIC PANEL, PLASMA Timed 08/02/2024 12:27 AM EDT POCT GLUCOSE METER UNSOLICITED RESULTS Routine 08/02/2024 12:25 AM EDT VANCOMYCIN, RANDOM, PLASMA Routine 08/01/2024 8:16 PM EDT BASIC METABOLIC PANEL, PLASMA Timed 08/01/2024 8:16 PM EDT OXYGEN THERAPY Routine 08/01/2024 8:00 PM EDT POCT GLUCOSE METER UNSOLICITED RESULTS Routine 08/01/2024 6:13 PM EDT BASIC METABOLIC PANEL, PLASMA Timed 08/01/2024 4:25 PM EDT REMOVAL OF TUNNELED DIALYSIS CATHETER Routine 08/01/2024 2:54 PM EDT ESRD (end stage renal disease) ([facility]) Bacteremia SURGICAL PATHOLOGY EXAM Routine 08/02/19 2:37 PM EDT ROUTINE CULTURE AND GRAM STAIN Routine 08/01/2024 2:37 PM EDT POCT GLUCOSE METER UNSOLICITED RESULTS Routine 08/01/2024 11:52 AM EDT CHLAMYDIA TRACHOMATIS DNA BY PCR Routine 08/01/2024 10:24 AM EDT NEISSERIA GONORRHEA DNA BY PCR Routine 08/01/2024 10:24 AM EDT HEMODIALYSIS INPATIENT Routine 10:03 AM EDT OXYGEN THERAPY Routine 08/01/2024 9:49 AM EDT OXYGEN THERAPY Routine 08/01/2024 9:49 AM EDT OXYGEN THERAPY Routine 08/01/2024 9:49 AM EDT HIV 1/2 ANTIBODY/ANTIGEN SCREEN WITH REFLEX TO HIV I/II DIFFERENTIATION Routine 08/01/2024 9:13 AM EDT TREPONEMA PALLIDUM (SYPHILIS) ANTIBODIES WITH REFLEX TO RPR AND RPR TITER (THOSE WITH NO KNOWN SYPHILIS) Routine 08/01/2024 9:13 AM EDT HIV 1/2 ANTIBODY/ANTIGEN SCREEN W/REFLEX TO HIV 1/2 ANTIBODY DIFFERENTIATION Routine 08/01/2024 9:13 AM EDT BASIC METABOLIC PANEL, PLASMA Timed 08/01/2024 9:13 AM EDT BLOOD CULTURE (AEROBIC/ANAEROBIC SET) Routine 08/01/2024 9:13 AM EDT BASIC METABOLIC PANEL, PLASMA Timed 08/01/2024 7:58 AM EDT CHLAMYDIA TRACHOMATIS DNA BY PCR Routine 08/01/2024 6:11 AM EDT NEISSERIA GONORRHEA DNA BY PCR Routine 08/01/2024 6:11 AM EDT POCT GLUCOSE METER UNSOLICITED RESULTS Routine 08/01/2024 6:08 AM EDT HEMOGLOBIN AND HEMATOCRIT, BLOOD Routine 08/01/2024 6:08 AM EDT VANCOMYCIN, RANDOM, PLASMA Add-On 08/01/2024 4:42 AM EDT BASIC METABOLIC PANEL, PLASMA Timed 08/01/2024 4:42 AM EDT TRANSFUSE RED BLOOD CELLS Routine 08/01/2024 3:01 AM EDT TYPE AND SCREEN Routine 08/01/2024 2:02 AM EDT PREPARE RBC Routine 08/01/2024 1:56 AM EDT HEMOGLOBIN AND HEMATOCRIT, BLOOD Routine 08/01/2024 1:32 AM EDT CHLAMYDIA TRACHOMATIS DNA BY PCR Routine 08/01/2024 12:26 AM EDT NEISSERIA GONORRHEA DNA BY PCR Routine 08/01/2024 12:26 AM EDT POCT GLUCOSE METER UNSOLICITED RESULTS Routine 08/01/2024 12:21 AM EDT BASIC METABOLIC PANEL, PLASMA Timed 08/01/2024 12:21 AM EDT PHOSPHORUS, PLASMA Routine 08/01/2024 12:21 AM EDT MAGNESIUM, PLASMA Routine 08/01/2024 12:21 AM EDT IONIZED CALCIUM, SERUM Routine 12:21 AM EDT CBC W/O DIFFERENTIAL Routine 08/01/2024 12:21 AM EDT HIV 1/2 ANTIBODY/ANTIGEN SCREEN WITH REFLEX TO HIV I/II DIFFERENTIATION Routine 07/31/2024 8:24 PM EDT TREPONEMA PALLIDUM (SYPHILIS) ANTIBODIES WITH REFLEX TO RPR AND RPR TITER (THOSE WITH NO KNOWN SYPHILIS) Routine 07/31/2024 8:24 PM EDT HEPATITIS C VIRUS (HCV) QUANTITATIVE PCR Routine 07/31/2024 8:24 PM EDT HIV 1/2 ANTIBODY/ANTIGEN SCREEN W/REFLEX TO HIV 1/2 ANTIBODY DIFFERENTIATION Routine 07/31/2024 8:24 PM EDT BASIC METABOLIC PANEL, PLASMA Timed 07/31/2024 8:24 PM EDT BASIC METABOLIC PANEL, PLASMA Timed 07/31/2024 5:49 PM EDT POCT GLUCOSE METER UNSOLICITED RESULTS Routine 07/31/2024 5:45 PM EDT CVC TRIPLE LUMEN ([employer] LINK) Routine 07/31/2024 4:11 PM EDT Acute renal failure with tubular necrosis (CMS/HCC) HC INSERT NON-TUNNEL CV CATH Routine 07/31/2024 4:11 PM EDT Acute renal failure with tubular necrosis (CMS/HCC) KS INSERT NON-TUNNEL CV CATH Routine 07/31/2024 4:11 PM EDT Acute renal failure with tubular necrosis (CMS/HCC) BASIC METABOLIC PANEL, PLASMA Timed 07/31/2024 12:42 PM EDT POCT GLUCOSE METER UNSOLICITED RESULTS Routine 07/31/2024 12:12 PM EDT ECHO, ADULT TRANSTHORACIC COMPLETE Routine 07/31/2024 10:20 AM EDT HEMODIALYSIS INPATIENT Routine 9:08 AM EDT BLOOD GAS PANEL, VENOUS Routine 08/01/19 6:30 AM EDT VANCOMYCIN, RANDOM, PLASMA STAT Add-on 07/31/2024 6:03 AM EDT BASIC METABOLIC PANEL, PLASMA Timed 07/31/2024 6:03 AM EDT POCT GLUCOSE METER UNSOLICITED RESULTS Routine 07/31/2024 6:02 AM EDT POCT GLUCOSE METER UNSOLICITED RESULTS Routine 07/31/2024 5:[address] CHEST WO IV CONTRAST Routine 08/01/19 4:[address] ABDOMEN PELVIS W IV CONTRAST STAT 07/31/2024 4:12 AM EDT POCT GLUCOSE METER UNSOLICITED RESULTS Routine 07/31/2024 1:04 AM EDT HEMOGLOBIN A1C Routine 07/31/2024 1:03 AM EDT MULTI DRUG RESISTANCE TEST Routine 07/31/2024 12:58 AM EDT GERMÁN AURIS SURVEILLANCE BY PCR Routine 07/31/2024 12:58 AM EDT POCT GLUCOSE METER UNSOLICITED RESULTS Routine 07/31/2024 12:24 AM EDT BASIC METABOLIC PANEL, PLASMA Routine 07/31/2024 12:10 AM EDT POCT GLUCOSE METER UNSOLICITED RESULTS Routine 07/30/2024 11:26 PM EDT POCT GLUCOSE METER UNSOLICITED RESULTS Routine 07/30/2024 11:06 PM EDT POCT GLUCOSE METER UNSOLICITED RESULTS Routine 07/30/2024 10:58 PM EDT TROPONIN T, HIGH SENSITIVITY, 2 HOUR, PLASMA Timed 07/30/2024 10:57 PM EDT URINALYSIS MICROSCOPIC FOR UA REFLEX STAT 07/30/2024 10:49 PM EDT OPIATES, LCMSMS, URINE STAT 10:49 PM EDT FENTANYL, URINE STAT 07/30/2024 10:49 PM EDT COCAINE METABOLITE CONFIRM URINE STAT 07/30/2024 10:49 PM EDT AMPHETAMINES LCMSMS URINE STAT 07/30/2024 10:49 PM EDT URINE WHITESIDE PANEL STAT 07/30/2024 10:49 PM EDT URINALYSIS WITH REFLEX MICROSCOPIC STAT 07/30/2024 10:49 PM EDT COMPREHENSIVE URINE DRUG SCREENING,QUALITATIVE ASSAY, >= 27 DRUG CLASSES STAT 07/30/2024 10:49 PM EDT DRUG ABUSE SCREEN, URINE STAT 07/30/2024 10:49 PM EDT URINALYSIS WITH REFLEX MICROSCOPIC AND CULTURE STAT 07/30/2024 10:49 PM EDT COMPREHENSIVE GI PANEL BY PCR STAT 07/30/2024 10:49 PM EDT ECG ADULT STAT 07/30/2024 10:30 PM EDT XR CHEST 1 VIEW STAT 07/30/2024 9:49 PM EDT ABO/RH STAT 07/30/2024 8:54 PM EDT ANTI XA LEVEL UNFRACTIONATED HEPARIN STAT 07/30/2024 8:54 PM EDT PROTHROMBIN TIME(PT) / INR STAT 07/30/2024 8:54 PM EDT CBC WITH AUTO DIFFERENTIAL STAT 07/30/2024 8:54 PM EDT C-REACTIVE PROTEIN, PLASMA STAT 07/30/2024 8:54 PM EDT BLOOD GAS PANEL, VENOUS STAT 07/31/19 8:54 PM EDT TROPONIN T, HIGH SENSITIVITY, 0 HOUR, PLASMA, REFLEX TO 2 HOUR STAT 07/30/2024 8:54 PM EDT LACTATE, VENOUS STAT 07/30/2024 8:54 PM EDT LIPASE, PLASMA STAT 07/30/2024 8:54 PM EDT PHOSPHORUS, PLASMA STAT 07/30/2024 8:54 PM EDT MAGNESIUM, PLASMA STAT 07/30/2024 8:54 PM EDT COMPREHENSIVE METABOLIC PANEL, PLASMA STAT 07/30/2024 8:54 PM EDT BACTERIAL ID GRAM NEGATIVE Routine 07/30/2024 8:54 PM EDT BLOOD CULTURE (AEROBIC/ANAEROBIC SET) STAT 07/30/2024 8:54 PM EDT BACTERIAL ID GRAM POSITIVE Routine 07/30/2024 8:36 PM EDT BLOOD CULTURE (AEROBIC/ANAEROBIC SET) STAT 07/30/2024 8:36 PM EDT ECG ADULT STAT 07/30/2024 4:41 PM EDT [facility], E/M 30-74 MINUTES Routine 07/30/2024 4:29 PM EDT from Last 3 Months Results * (ABNORMAL) PT-INR (09/24/2024 10:06 PM EDT) Only the most recent of13 resultswithin the time period is included. Prothrombin Time 14.9(H) 12.0 - 14.3 sec 09/24/2024 10:24 PM EDT [facility] INR 1.1 0.9 - 1.1 09/24/2024 10:24 PM EDT [facility] Blood Venous blood specimen / Unknown Venipuncture / Unknown 09/24/2024 10:06 PM EDT 09/24/2024 10:11 PM EDT Narrative [facility]ALTH[facility]ARE [facility] - 09/24/2024 10:24 PM EDT OPTIMAL INR RANGES FOR PATIENT ON ORAL ANTICOAGULANT THERAPY Prevention of venous thromboembolism INR 2.0 to 3.0 In patients with heart disease: Atrial fibrillation INR 2.0 to 3.0 Valvular heart disease INR 2.0 to 3.0 Tissue heart valves INR 2.0 to 3.0 Mechanical prosthetic valves INR 2.5 to 3.5 Prevention of recurrent MS INR 2.5 to 3.5 us Chelly VYAS LAB BLOOD ORDERABLES Final R esult [facility] [address] [place] [id number] * (ABNORMAL) CBC w/diff (09/24/2024 10:06 PM EDT) Only the most recent of16 resultswithin the time period is included. WBC Count 5.62 3.70 - 10.30 10*3/uL LAB HEMATOLOGY METHOD 09/24/2024 10:15 PM EDT [facility] RBC Count 2.74(L) 4.60 - 6.10 10*6/uL LAB HEMATOLOGY METHOD 09/24/2024 10:15 PM EDT [facility] HGB 7.4(L) 13.7 - 17.5 g/dL LAB HEMATOLOGY METHOD 09/24/2024 10:15 PM EDT [facility] HCT 24.1(L) 40.0 - 51.0 % LAB HEMATOLOGY METHOD 09/24/2024 10:15 PM EDT [facility] Platelet Count 231 155 - 369 10*3/uL LAB HEMATOLOGY METHOD 09/24/2024 10:15 PM EDT [facility] MCV 88 79 - 98 fL LAB HEMATOLOGY METHOD 09/24/2024 10:15 PM EDT [facility] MCH 27.0 26.0 - 32.0 pg LAB HEMATOLOGY METHOD 09/24/2024 10:15 PM EDT [facility] MCHC 30.7 30.7 - 35.5 g/dL LAB HEMATOLOGY METHOD 09/24/2024 10:15 PM EDT [facility] RDW 15.5(H) 11.5 - 14.5 % LAB HEMATOLOGY METHOD 09/24/2024 10:15 PM EDT [facility] MPV 8.9 8.8 - 12.5 fL LAB HEMATOLOGY METHOD 09/24/2024 10:15 PM EDT [facility] nRBC 0.0 <=0.0 per 100 WBCs LAB HEMATOLOGY METHOD 09/24/2024 10:15 PM EDT [facility] Differential Type Automated LAB HEMATOLOGY METHOD 09/24/2024 10:15 PM EDT [facility] Neutrophils % 55 % LAB HEMATOLOGY METHOD 09/24/2024 10:15 PM EDT [facility] Lymphocytes % 29 % LAB HEMATOLOGY METHOD 09/24/2024 10:15 PM EDT [facility] Monocytes % 11 % LAB HEMATOLOGY METHOD 09/24/2024 10:15 PM EDT [facility] Eosinophils % 4 % LAB HEMATOLOGY METHOD 09/24/2024 10:15 PM EDT [facility] Basophils % 1 % LAB HEMATOLOGY METHOD 09/24/2024 10:15 PM EDT [facility] Immature Granulocytes % 0 % LAB HEMATOLOGY METHOD 09/24/2024 10:15 PM EDT [facility] Neutrophils Absolute 3.12 1.60 - 6.10 10*3/uL LAB HEMATOLOGY METHOD 09/24/2024 10:15 PM EDT [facility] Lymphocytes Absolute 1.63 1.20 - 3.90 10*3/uL LAB HEMATOLOGY METHOD 09/24/2024 10:15 PM EDT [facility] Monocytes Absolute 0.59 0.30 - 0.90 10*3/uL LAB HEMATOLOGY METHOD 09/24/2024 10:15 PM EDT [facility] Eosinophils Absolute 0.22 0.00 - 0.50 10*3/uL LAB HEMATOLOGY METHOD 09/24/2024 10:15 PM EDT [facility] Basophils Absolute 0.04 0.00 - 0.10 10*3/uL LAB HEMATOLOGY METHOD 09/24/2024 10:15 PM EDT [facility] Immature Granulocytes Absolute 0.02 0.00 - 0.06 10*3/uL LAB HEMATOLOGY METHOD 09/24/2024 10:15 PM EDT [facility] Blood Venous blood specimen / Unknown Venipuncture / Unknown 09/24/2024 10:06 PM EDT 09/24/2024 10:11 PM EDT Narrative [facility]ARE [facility] - 09/24/2024 10:15 PM EDT Therapeutic decision making should be based on absolute values, rather than percentages. Chelly VYAS LAB BLOOD ORDERABLES Final R esult [facility] [address] [place] [address] * Type and screen (09/24/2024 10:06 PM EDT) Only the most recent of4 resultswithin the time period is included. ABO/Rh B Positive 09/24/2024 9:45 PM EDT BLOOD BANK Antibody Screen Negative 09/24/2024 9:45 PM EDT BLOOD BANK Specimen Expiration 09/27/2024 23:59 09/24/2024 9:45 PM EDT BLOOD BANK Blood Venous blood specimen / Unknown Venipuncture / Unknown 09/24/2024 10:06 PM EDT 09/24/2024 10:16 PM EDT Chelly VYAS LAB BLOOD BANK TEST ORDERABL ES Final Result Performing Organization Address [facility] Co de Phone Number BLOOD BANK [address] [place] [address], * Magnesium (09/24/2024 10:06 PM EDT) Only the most recent of32 resultswithin the time period is included. Magnesium, Plasma 2.0 1.9 - 2.4 mg/dL 09/24/2024 10:32 PM EDT [facility] Blood Venous blood specimen / Unknown Venipuncture / Unknown 09/24/2024 10:06 PM EDT 09/24/2024 10:12 PM EDT Chelly VYAS LAB BLOOD ORDERABLES Final R esult [facility] [address] [place] [address] * (ABNORMAL) CMP (09/24/2024 10:06 PM EDT) Only the most recent of22 resultswithin the time period is included. Glucose, Plasma 103(H) 74 - 99 mg/dL 09/24/2024 10:32 PM EDT [facility] BUN, Plasma 24(H) 7 - 21 mg/dL 09/24/2024 10:32 PM EDT [facility] Creatinine, Plasma 4.09(H) 0.70 - 1.20 mg/dL 09/24/2024 10:32 PM EDT [facility] BUN/Creatinine Ratio 6 09/24/2024 10:32 PM EDT [facility] Sodium, Plasma 139 136 - 145 mmol/L 09/24/2024 10:32 PM EDT [facility] Potassium, Plasma 4.0 3.6 - 4.9 mmol/L 09/24/2024 10:32 PM EDT [facility] Chloride, Plasma 98 97 - 107 mmol/L 09/24/2024 10:32 PM EDT [facility] CO2, Plasma 25 22 - 29 mmol/L 09/24/2024 10:32 PM EDT [facility] Anion Gap 16 6 - 16 mmol/L 09/24/2024 10:32 PM EDT [facility] Total Calcium, Plasma 8.4(L) 8.9 - 10.2 mg/dL 09/24/2024 10:32 PM EDT [facility] Total Protein 7.2 6.3 - 7.9 g/dL 09/24/2024 10:32 PM EDT [facility] Albumin, Plasma 3.1(L) 3.5 - 5.2 g/dL 09/24/2024 10:32 PM EDT [facility] AST, Plasma 10 10 - 50 U/L 09/24/2024 10:32 PM EDT [facility] ALT, Plasma <5(L) 10 - 50 U/L 09/24/2024 10:32 PM EDT [facility] Alkaline Phosphatase, Plasma 105 40 - 115 U/L 09/24/2024 10:32 PM EDT [facility] Total Bilirubin, Plasma 0.2 0.2 - 1.1 mg/dL 09/24/2024 10:32 PM EDT [facility] eGFRcr 17.8 mL/min/1.7 3m*2 09/24/2024 10:32 PM EDT [facility] Comment:Reported eGFRcr in m L/min/1.73m2 is based the CKD-EPI 2020 equation that does not use a race coefficient. Blood Venous blood specimen / Unknown Venipuncture / Unknown 09/24/2024 10:06 PM EDT 09/24/2024 10:12 PM EDT us Chelly VYAS LAB BLOOD ORDERABLES Final R esult [facility] [address] [place] [address] * EKG now - STAT (adult) (09/24/2024 8:34 PM EDT) Only the most recent of15 resultswithin the time period is included. EKG DIAGNOSIS CLASS Abnormal MUSE ECG Ventricular Rate 92 BPM MUSE ECG Atrial Rate 92 BPM MUSE ECG KS Interval 146 ms MUSE ECG QRSD Interval 76 ms MUSE ECG QT Interval 396 ms MUSE ECG QTC Interval 489 ms MUSE ECG P [place] 23 degrees MUSE ECG R [place] -24 degrees MUSE ECG T Wave [place] 65 degrees MUSE ECG Diagnosis Normal sinus rhythm MUSE ECG Diagnosis Possible Left atrial enlargement MUSE ECG Diagnosis Inferior infarct , age undetermined MUSE ECG Diagnosis Cannot rule out Anterior infarct , age undetermined MUSE ECG Diagnosis Abnormal ECG MUSE ECG Diagnosis MUSE ECG Diagnosis Confirmed by Cb Eaton ([id number]) on 09/25/2024 1:58:50 PM MUSE ECG 09/24/2024 8:34 PM EDT 09/25/2024 1:58 PM EDT us Cece Miller MD ECG ORDERABLES Final Result MUSE ECG * CT OUTSIDE IMAGES (09/17/2024 8:49 PM EDT) Anatomical Region Laterality Modality Computed Tomogra phy 09/17/2024 8:49 PM EDT Deirdre Hou IMG CT PROCEDURES Final Result * (ABNORMAL) Hepatitis B Core Total Ab, IgG and IgM (09/10/2024 2:40 PM EDT) Pathologist [facility] Hepatitis B Core Total Antibody IgG,IgM Positive(A ) Negative 09/10/2024 4:55 PM EDT [facility] Blood Venous blood specimen / Unknown Venipuncture / Unknown 09/10/2024 2:40 PM EDT 09/10/2024 2:40 PM EDT us Eri Becker MD LAB BLOOD ORDERABLES Fin al Result Performing Organization Address City/[facility]/ZIP Co de Phone Number [facility] [address] [place] [address] * Hepatitis B Surface Antigen (09/10/2024 2:40 PM EDT) [facility] Hepatitis B Surf Antigen Negative Negative 09/10/2024 4:17 PM EDT [facility] Blood Venous blood specimen / Unknown Venipuncture / Unknown 09/10/2024 2:40 PM EDT 09/10/2024 2:40 PM EDT us Eri Becker MD LAB BLOOD ORDERABLES Fin al Result Performing Organization Address [facility] [place] [address] * (ABNORMAL) CBC W/O Differential (09/08/2024 10:15 AM EDT) Only the most recent of26 resultswithin the time period is included. [facility] WBC Count 9.31 3.70 - 10.30 10*3/uL LAB HEMATOLOGY METHOD 09/08/2024 10:23 AM EDT [facility] RBC Count 3.00(L) 4.60 - 6.10 10*6/uL LAB HEMATOLOGY METHOD 09/08/2024 10:23 AM EDT [facility] HGB 8.2(L) 13.7 - 17.5 g/dL LAB HEMATOLOGY METHOD 09/08/2024 10:23 AM EDT [facility] HCT 25.6(L) 40.0 - 51.0 % LAB HEMATOLOGY METHOD 09/08/2024 10:23 AM EDT [facility] Platelet Count 213 155 - 369 10*3/uL LAB HEMATOLOGY METHOD 09/08/2024 10:23 AM EDT [facility] MCV 85 79 - 98 fL LAB HEMATOLOGY METHOD 09/08/2024 10:23 AM EDT [facility] MCH 27.3 26.0 - 32.0 pg LAB HEMATOLOGY METHOD 09/08/2024 10:23 AM EDT [facility] MCHC 32.0 30.7 - 35.5 g/dL LAB HEMATOLOGY METHOD 09/08/2024 10:23 AM EDT [facility] RDW 14.6(H) 11.5 - 14.5 % LAB HEMATOLOGY METHOD 09/08/2024 10:23 AM EDT [facility] MPV 8.8 8.8 - 12.5 fL LAB HEMATOLOGY METHOD 09/08/2024 10:23 AM EDT [facility] nRBC 0.0 <=0.0 per 100 WBCs LAB HEMATOLOGY METHOD 09/08/2024 10:23 AM EDT [facility] Blood Venous blood specimen / Unknown Venipuncture / Unknown 09/08/2024 10:15 AM EDT 09/08/2024 10:21 AM EDT us Jose Pedroza MD LAB BLOOD ORDERABLES Final R esult Performing Organization Address City/State/[facility] Co de Phone Number [facility] [address] [place], [place] [id number] * (ABNORMAL) Basic Metabolic Panel, Plasma (09/07/2024 3:19 PM EDT) Only the most recent of35 resultswithin the time period is included. Glucose, Plasma 98 74 - 99 mg/dL 09/07/2024 4:37 PM EDT [facility] BUN, Plasma 25(H) 7 - 21 mg/dL 09/07/2024 4:37 PM EDT [facility] Creatinine, Plasma 3.98(H) 0.70 - 1.20 mg/dL 09/07/2024 4:37 PM EDT [facility] BUN/Creatinine Ratio 6 09/07/2024 4:37 PM EDT [facility] Sodium, Plasma 131(L) 136 - 145 mmol/L 09/07/2024 4:37 PM EDT [facility] Potassium, Plasma 4.2 3.6 - 4.9 mmol/L 09/07/2024 4:37 PM EDT [facility] Chloride, Plasma 96(L) 97 - 107 mmol/L 09/07/2024 4:37 PM EDT [facility] CO2, Plasma 25 22 - 29 mmol/L 09/07/2024 4:37 PM EDT [facility] Anion Gap 10 6 - 16 mmol/L 09/07/2024 4:37 PM EDT [facility] Total Calcium, Plasma 8.1(L) 8.9 - 10.2 mg/dL 09/07/2024 4:37 PM EDT [facility] eGFRcr 18.4 mL/min/1.7 3m*2 09/07/2024 4:37 PM EDT [facility] Comment:Reported eGFRcr in m L/min/1.73m2 is based the CKD-EPI 2020 equation that does not use a race coefficient. Blood Venous blood specimen / Unknown Venipuncture / Unknown 09/07/2024 3:19 PM EDT 09/07/2024 4:11 PM EDT Jose Pedroza MD LAB BLOOD ORDERABLES Final R esult [facility] [address] [place] [address] * (ABNORMAL) C-reactive protein (09/06/2024 2:03 PM EDT) Only the most recent of11 resultswithin the time period is included. CRP, Plasma 85.0(H) <=8.0 mg/L 09/06/2024 2:30 PM EDT [facility] Blood Blood sample taken from central line / Unknown (Central Line) Existing Catheter / Unknown 09/06/2024 2:03 PM EDT 09/06/2024 2:07 PM EDT Narrative [facility]ALTH[facility]ARE [facility] - 09/06/2024 2:30 PM EDT This CRP test is appropriate for assessment of infection, systemic inflammation and/or tissue injury. To assess cardiovascular disease risk order high sensitivity CRP (CRPH). us Iglesia Prasad MD LAB BLOOD ORDERABLES Final R esult [facility] [address] [place] [address] * (ABNORMAL) Renal function panel (09/04/2024 9:17 AM EDT) Only the most recent of13 resultswithin the time period is included. Glucose, Plasma 91 74 - 99 mg/dL 09/04/2024 10:05 AM EDT [facility] BUN, Plasma 31(H) 7 - 21 mg/dL 09/04/2024 10:05 AM EDT [facility] Creatinine, Plasma 5.11(H) 0.70 - 1.20 mg/dL 09/04/2024 10:05 AM EDT [facility] BUN/Creatinine Ratio 6 09/04/2024 10:05 AM EDT [facility] Sodium, Plasma 132(L) 136 - 145 mmol/L 09/04/2024 10:05 AM EDT [facility] Potassium, Plasma 4.1 3.6 - 4.9 mmol/L 09/04/2024 10:05 AM EDT [facility] Chloride, Plasma 100 97 - 107 mmol/L 09/04/2024 10:05 AM EDT [facility] CO2, Plasma 23 22 - 29 mmol/L 09/04/2024 10:05 AM EDT [facility] Anion Gap 9 6 - 16 mmol/L 09/04/2024 10:05 AM EDT [facility] Total Calcium, Plasma 7.7(L) 8.9 - 10.2 mg/dL 09/04/2024 10:05 AM EDT [facility] Phosphorus, Plasma 5.1(H) 2.5 - 4.5 mg/dL 09/04/2024 10:05 AM EDT [facility] Albumin, Plasma 2.3(L) 3.5 - 5.2 g/dL 09/04/2024 10:05 AM EDT [facility] eGFRcr 13.6 mL/min/1.7 3m*2 09/04/2024 10:05 AM EDT [facility] Comment:Reported eGFRcr in m L/min/1.73m2 is based the CKD-EPI 2020 equation that does not use a race coefficient. Blood Venous blood specimen / Unknown Venipuncture / Unknown 09/04/2024 9:17 AM EDT 09/04/2024 9:30 AM EDT Jose Pedroza MD LAB BLOOD ORDERABLES Final R esult Performing Organization Address City/[facility] Co de Phone Number [facility] [address] [place] [address] * Lavender Top (09/04/2024 9:05 AM EDT) Extra Hold for add-ons 09/04/2024 12:01 PM EDT [facility] Comment:Auto resulted. Blood Venous blood specimen / Unknown 09/04/2024 9:05 AM EDT 09/04/2024 9:30 AM EDT Jose Pedroza MD LAB BLOOD ORDERABLES Final R esult Performing Organization Address [facility] de Phone Number [facility] [address] [place] [address] * XR Panorex (08/29/2024 3:26 PM EDT) Anatomical Region Laterality Modality Jaw region Panoramic X-Ray Impressions 08/29/2024 3:56 PM EDT Questionable periapical lucency involving the left mandibular first molar lateral root. Extensive dental carious disease as above. CRITICAL RESULT: No. COMMUNICATION: Per this written report. By electronically signing this report, I, the attending physician, attest that I have personally reviewed the images/data for the above examination(s) and agree with the final edited report. Drafted by Rinku Nicole MD on 08/29/2024 3:42 PM Final report signed by Liss Aiken MD on 08/29/2024 3:56 PM Narrative 08/29/2024 3:56 PM EDT CLINICAL INDICATION: c/f dental caries on left lower molar TECHNIQUE: XR PANOREX COMPARISON: Panorex 05/14/2024 FINDINGS: Extensive carious disease, namely within the mandibular and maxillary molars, with significant increase in carious destruction of the left mandibular first molar. Questionable periapical lucency involving the left mandibular first molar lateral root. Procedure Note Liss Aiken MD - 08/29/2024 CLINICAL INDICATION: c/f dental caries on left lower molar TECHNIQUE: XR PANOREX COMPARISON: Panorex 05/14/2024 FINDINGS: Extensive carious disease, namely within the mandibular and maxillarymolars, with significant increase in carious destruction of the leftmandibular first molar. Questionable periapical lucency involving the leftmandibular first molar lateral root. IMPRESSION: Questionable periapical lucency involving the left mandibular first molarlateral root. Extensive dental carious disease as above. CRITICAL RESULT: No. COMMUNICATION: Per this written report. By electronically signing this report, I, the attending physician, attestthat I have personally reviewed the images/data for the aboveexamination(s) and agree with the final edited report. Drafted by Rinku Nicole MD on 08/29/2024 3:42 PM Final report signed by Liss Aiken MD on 08/29/2024 3:56 PM us Iglesia Prasad MD IMG XR PROCEDURES Final Resu lt * (ABNORMAL) Potassium (08/27/2024 9:04 AM EDT) Only the most recent of3 resultswithin the time period is included. Potassium, Plasma 5.6(H) 3.6 - 4.9 mmol/L 08/27/2024 9:28 AM EDT [facility] Comment:Hemolyzed, result ma y be falsely increased. Blood Venous blood specimen / Unknown Venipuncture / Unknown 08/27/2024 9:04 AM EDT 08/27/2024 9:10 AM EDT Iglesia Prasad MD LAB BLOOD ORDERABLES Final R esult [facility] [address] [place] [id number] * (ABNORMAL) Phosphorus, Plasma (08/27/2024 4:56 AM EDT) Only the most recent of19 resultswithin the time period is included. Phosphorus, Plasma 5.8(H) 2.5 - 4.5 mg/dL 08/27/2024 6:00 AM EDT [facility] Comment:Hemolyzed, result ma y be falsely increased. Blood Venous blood specimen / Unknown Venipuncture / Unknown 08/27/2024 4:56 AM EDT 08/27/2024 5:38 AM EDT us Iglesia Prasad MD LAB BLOOD ORDERABLES Final R esult [facility] [address] [place] [address] * CARDIOVERSION (08/25/2024 1:27 PM EDT) Anatomical Region Laterality Modality Cardiac Electrop hysiology Narrative 08/25/2024 1:29 PM EDT Images from the original result were not included. Patient History: The patient presents for an elective cardioversion. Conclusion: Successful external direct current cardioversion with resultant sinus rhythm. Recommendation: Continue uninterrupted therpeutic anticoagulation. Methods: The patient was transported to the Electrophysiology Lab in a post-absorptive, non-sedated state. Informed consent was obtained prior to the procedure. Two peripheral IVs were inserted prior to the case. External defibrillator patches were applied in the anterior/apical position. Patient hemodynamics were monitored throughout the procedure and moderate sedation was administered. The baseline rhythm was 2:1 atrial flutter with ventricular rate in the 110s. Once adequate sedation was achieved cardioversion as performed using 200 joules. The resulting rhythm was normal sinus rhythm in the 70s. The total number of cardioversion attempts was one. The final rhythm upon achieved was NSR. The patient tolerated the procedure well and was transferred to the recovery area in stable condition. Daniel Parsons MD Cardiac Janitorial Services Supervisor, [facility]. Health Support Specialistcentrifugal wax molder, Division of Cardiovascular Medicine, [facility]. us Mp VYAS CV ELECTROPHYSIOLOGY PROCEDU RES Final Result * (ABNORMAL) POCT glucose meter (08/25/2024 10:41 AM EDT) Only the most recent of66 resultswithin the time period is included. POCT Glucose 132(H) 74 - 99 mg/dL 08/25/2024 10:43 AM EDT [facility] Comment:Accuracy of a glucos e result obtained from a capillary whole blood specimen relies upon adequate, non-compromised capillary blood flow. If the capillary glucose result is not consistent with the patient's clinical signs and symptoms, glucose testing should be repeated with either an arterial or venous sample on the glucometer or sent to the main labortory for testing. Comment 08/25/2024 10:43 AM EDT [facility]ALTH[facility]ARE [facility] Car Sweeper ID Soha Ramirez 08/25/2024 10:43 AM EDT [facility] Device ID [id number] 08/25/2024 10:43 AM EDT [facility]ALTH[facility]ARE [facility] Specimen Type POC Capillary 08/25/2024 10:43 AM EDT [facility] Blood Capillary blood specimen / Unknown 08/25/2024 10:41 AM EDT 08/25/2024 10:43 AM EDT Iglesia Prasad MD LAB POINT OF CARE TE ST DOCKED DEVICE UNSOLICITED RESULTS Final Result Performing Organization Address City/State/[facility] Co de Phone Number [facility]ARE [facility] [address] [place] [address] * CT Angio Cardiac Structure Morphology (08/22/2024 11:01 AM EDT) Anatomical Region Laterality Modality Heart Computed Tomogra phy Impressions 08/22/2024 1:53 PM EDT No evidence of left atrial or left atrial appendage thrombus. Interval decreased size of the left-sided pleural effusion with persistent left lower lobe compressive atelectasis. Redemonstrated ascites. Critical Result: No. COMMUNICATION: Per this written report. By electronically signing this report, I, the attending physician, attest that I have personally reviewed the images/data for the above examination(s) and agree with the final edited report. Drafted by Param Lua M.D. on 08/22/2024 11:22 AM Final report signed by Julissa Kovacs MD on 08/22/2024 1:53 PM Narrative 08/22/2024 1:53 PM EDT CLINICAL INFORMATION: 44-year-old male with a past medical history of ESRD and IV drug abuse who presents for cardiac CTA evaluation prior to planned cardioversion. Height: 180.3 cm Weight: 98.5 kg Comparison imaging: CT PE protocol 08/17/2024 SCAN TECHNIQUE: Image Acquisition and Reconstruction: A Dual source 192 MDCT scanner ([employer], [employer]) was used for data acquisition. Bolus tracking in the left atrium with a threshold of 180 HU was performed. Immediately afterwards, Cardiac CT was then performed from cardiac base to apex using ECG gatedTurbo Flash mode. A 45-second delayed scan was performed using ECG gated TurboFlash mode for assessment of thrombus. A total of 100 mL Omnipaque 350mgI/mL contrast media was administered followed by a saline flush using a biphasic injection protocol. Transaxial images were reconstructed at 0.75 mm slice thickness. Data was reviewed interactively on an advanced workstation ([employer]) capable of 2 and 3 dimensional displays in all conventional reconstruction formats including multiplanar reformations, maximum intensity projections, curved multiplanar reformations, and volume rendered reconstructions. Selected routine images displaying relevant coronary anatomy and pathology were saved and sent to PACS. Total DLP (Dose-Length Product): 180.91 mGy.cm. Please note: The reported value represents the total of one or more individual components during the CT acquisition on this date and at this time, and as such, the same value may appear in more than one CT report depending on the interpreting/reporting physicians. Technical Quality: Overall image quality is Excellent. Pulmonary vein opacification is Excellent and the images are free of significant artifact. FINDINGS: --- Cardiac Findings --- No evidence of left atrial or left atrial appendage thrombus. Four-chamber cardiomegaly. Mild coronary atherosclerosis. No significant pericardial effusion, thickening, or calcification. Normal interatrial and interventricular septum. Grossly normal aortic valve and mitral valve. --- Extra Cardiac Structures --- Normal variant right pulmonary vein anatomy, with 2 right middle pulmonary veins, one that confluences with the left atrium near the confluence with the right lower pulmonary vein, and one that is part of the right upper pulmonary vein. Thoracic aorta in the field of view are unremarkable. No pulmonary embolism within the field of view. Interval decrease in size of the left-sided pleural effusion. Persistent compressive atelectasis of the left lower lobe. Redemonstrated ascites. Slightly heterogeneous enhancement of the liver are attributed to transient hepatic attenuation differences (HELDER). Reflux of contrast into the central hepatic veins. No aggressive osseus lesions. Procedure Note Julissa Kovacs MD - 08/22/2024 CLINICAL INFORMATION: 44-year-old male with a past medical history of ESRD and IV drug abuse whopresents for cardiac CTA evaluation prior to planned cardioversion. Height: 180.3 cm Weight: 98.5 kg Comparison imaging: CT PE protocol 08/17/2024 SCAN TECHNIQUE: Image Acquisition and Reconstruction: A Dual source 192 MDCT scanner ([employer], [employer])was used for data acquisition. Bolus tracking in the left atrium with athreshold of 180 HU was performed. Immediately afterwards, Cardiac CT wasthen performed from cardiac base to apex using ECG gatedTurbo Flash mode.A 45-second delayed scan was performed using ECG gated TurboFlash mode forassessment of thrombus. A total of 100 mL Omnipaque 350mgI/mL contrastmedia was administered followed by a saline flush using a biphasicinjection protocol. Transaxial images were reconstructed at 0.75 mm slicethickness. Data was reviewed interactively on an advanced workstation([employer]) capable of 2 and 3 dimensional displays in all conventionalreconstruction formats including multiplanar reformations, maximumintensity projections, curved multiplanar reformations, and volumerendered reconstructions. Selected routine images displaying relevantcoronary anatomy and pathology were saved and sent to PACS. Total DLP (Dose-Length Product): 180.91 mGy.cm. Please note: The reportedvalue represents the total of one or more individual components during theCT acquisition on this date and at this time, and as such, the same valuemay appear in more than one CT report depending on theinterpreting/reporting physicians. Technical Quality: Overall image quality is Excellent. Pulmonary vein opacification is Excellent and the images are free ofsignificant artifact. FINDINGS: --- Cardiac Findings --- No evidence of left atrial or left atrial appendage thrombus. Four-chambercardiomegaly. Mild coronary atherosclerosis. No significant pericardialeffusion, thickening, or calcification. Normal interatrial andinterventricular septum. Grossly normal aortic valve and mitral valve. --- Extra Cardiac Structures --- Normal variant right pulmonary vein anatomy, with 2 right middle pulmonaryveins, one that confluences with the left atrium near the confluence withthe right lower pulmonary vein, and one that is part of the right upperpulmonary vein. Thoracic aorta in the field of view are unremarkable. Nopulmonary embolism within the field of view. Interval decrease in size ofthe left-sided pleural effusion. Persistent compressive atelectasis of theleft lower lobe. Redemonstrated ascites. Slightly heterogeneousenhancement of the liver are attributed to transient hepatic attenuationdifferences (HELDER). Reflux of contrast into the central hepatic veins. Noaggressive osseus lesions. IMPRESSION: No evidence of left atrial or left atrial appendage thrombus. Interval decreased size of the left-sided pleural effusion with persistentleft lower lobe compressive atelectasis. Redemonstrated ascites. Critical Result: No. COMMUNICATION: Per this written report. By electronically signing this report, I, the attending physician, jayne I have personally reviewed the images/data for the aboveexamination(s) and agree with the final edited report. Drafted by Param Lua M.D. on 08/22/2024 11:22 AM Final report signed by Julissa Kovacs MD on 08/22/2024 1:53 PM us Mp VYAS IMG CT PROCEDURES Final Resu lt * ECHO, ADULT TRANSTHORACIC LIMITED (08/21/2024 2:20 PM EDT) BSA 2.14 m2 FLORESITA ISCV Height 177.8 FLORESITA ISCV Weight 96.2 FLORESITA ISCV LVIDd 54 mm FLORESITA ISCV LVIDs 46 mm FLORESITA ISCV IVSd 10 mm FLORESITA ISCV LVPWd 10 mm FLORESITA ISCV LV MASS(C)D 206 g FLORESITA ISCV [facility] CV ECHO LV MASS INDEX 96 g/m2 FLORESITA ISCV LV RWT 0.37 mm FLORESITA ISCV LV EDV (3D HM) 212 mL FLORESITA ISCV LV ESV (3D HM) 163 mL FLORESITA ISCV LV EF (3D HM) 23 % FLORESITA ISCV TR Vmax 333.0 cm/s FLORESITA ISCV TR Max PG 44 mmHG FLORESITA ISCV LVOT diam 2 mm FLORESITA ISCV LVOT AREA 0.0 cm2 FLORESITA ISCV LV V1 VTI 11.0 cm FLORESITA ISCV SV(LVOT) 0 mL FLORESITA ISCV RVSP 59 mmHg FLORESITA ISCV RAP systole 15 mmHg FLORESITA ISCV RV DONNA 28.6 cm2 FLORESITA ISCV RV RYAN 19.1 cm2 FLORESITA ISCV RV FAC_phl 33 % FLORESITA ISCV Anatomical Region Laterality Modality Echocardiography Narrative 08/21/2024 4:11 PM EDT Pericardium: There is a trace pericardial effusion. There is no echocardiographic evidence of cardiac tamponade. Left Ventricle: The left ventricular systolic function is severely reduced. The LVEF as measured by Heart Model 3D volume is 23%. Right Ventricle: The right ventricular systolic function is mildly reduced. Tricuspid Valve: There is moderate to severe tricuspid regurgitation. Mitral Valve: There is moderate mitral regurgitation with a central jet. Extracardiac: There are bilateral pleural effusions. Compared to the most recently available prior study, and allowing for differences in image quality and technique, decreased ventricular function, worsen tricuspid regurgitation, pericardial effusion is smaller. ARF 2/2 ESRD on HD, A-flutter, bacteremia/sepsis, decompensated cirrhosis, OUD, pericardial effusion with drain removed 08/12 Left Ventricle Based on the linear dimension and/or 2D volumes, the left ventricle is normal in size. There is normal left ventricular myocardial thickness and mass. The left ventricular systolic function is severely reduced. The LVEF as measured by Heart Model 3D volume is 23%. There is global hypokinesis of the left ventricle. Right Ventricle The right ventricle is grossly normal in size. The right ventricular systolic function is mildly reduced. The estimated global right ventricular systolic function based upon the focused RV view fractional area change is reduced (<35%). The estimated right ventricular systolic pressure is 59 mmHg. Right ventricular systolic pressure is moderately elevated (50-70mmHg). Left Atrium The left atrium is dilated by visual assessment. Right Atrium The right atrium is dilated by visual assessment. IVC/SVC Based on the IVC size and respiratory variation, the estimated right atrial pressure is 15mmHg. Mitral Valve There is moderate mitral regurgitation with a central jet. There is no mitral stenosis. Tricuspid Valve There is moderate to severe tricuspid regurgitation. There is no tricuspid stenosis. Pericardium There is a trace pericardial effusion. There is no echocardiographic evidence of cardiac tamponade. Extracardiac There are bilateral pleural effusions. Study Details A limited transthoracic echocardiogram using limited 2D imaging was performed. During the study the apical, parasternal and subcostal view was captured. Overall the study quality was good. Heart rate was tachycardic. Height: 177.8 cm. Weight: 96.2 kg. BSA: 2.14 m2. Study Recommendation Compared to the most recently available prior study, and allowing for differences in image quality and technique, decreased ventricular function, worsen tricuspid regurgitation, pericardial effusion is smaller. us Iglesia Prasad MD CV ECHO PROCEDURES Final Res ult * Helicobacter pylori Antigen (08/20/2024 3:10 AM EDT) Helicobacter pylori Antigen Result Negative Negative 08/20/2024 1:44 PM EDT [facility] Stool Rectum structure / Unknown Non-blood Collection / Unknown 08/20/2024 3:10 AM EDT 08/20/2024 3:39 AM EDT Iglesia Hutchins MD LAB MICROBIOLOGY - GENERAL O RDERABLES Final Result Performing Organization Address City/[facility]/ZIP Co de Phone Number [facility] [address] [place] [address] * (ABNORMAL) Iron & Total Iron Binding Capacity, Plasma (Includes Transferrin) (08/20/2024 3:05 AM EDT) Iron, Plasma 48(L) 50 - 170 ug/dL 08/20/2024 8:31 AM EDT [facility] Transferrin, Plasma 154(L) 200 - 360 mg/dL 08/20/2024 8:31 AM EDT [facility] Total Iron Binding Capacity, Plasma 193(L) 240 - 450 ug/mL 08/20/2024 8:31 AM EDT [facility] Transferrin Saturation 25 14 - 50 % 08/20/2024 8:31 AM EDT [facility] Blood Venous blood specimen / Unknown Venipuncture / Unknown 08/20/2024 3:05 AM EDT 08/20/2024 3:31 AM EDT us Jameson Issa MD LAB BLOOD ORDERABLES Final Re sult Performing Organization Address City/[facility]/ZIP Co de Phone Number [facility] [address] [place] [address] * (ABNORMAL) Vitamin D 25 Hydroxy (08/20/2024 3:05 AM EDT) Vitamin D 25 Hydroxy 16.8(L) 20.0 - 80.0 ng/mL 08/20/2024 9:57 AM EDT [facility] Blood Venous blood specimen / Unknown Venipuncture / Unknown 08/20/2024 3:05 AM EDT 08/20/2024 3:30 AM EDT Narrative [facility] - 08/20/2024 9:57 AM EDT Testing performed on [employer], standardized against NIST SRM 2972. When testing samples from patients whose predominant form of vitamin D is vitamin D2, such as patients receiving vitamin D2 supplementation, results that are subtherapeutic should be confirmed with another method, such as LC-MS/MS, before being used for patient management. Vitamin D, 25-Hydroxy reference range, age 18 years and up: Deficiency: <12 ng/mL Insufficiency: 12 to 19 ng/mL Sufficiency: 20 to 80 ng/mL Possible toxicity: >100 ng/mL Jameson Issa MD LAB BLOOD ORDERABLES Final Re sult [facility] [address] [place] [address] * (ABNORMAL) PTH, intact (08/20/2024 3:05 AM EDT) PTH Intact Total 527(H) 9 - 77 pg/mL 08/20/2024 10:17 AM EDT [facility] Blood Venous blood specimen / Unknown Venipuncture / Unknown 08/20/2024 3:05 AM EDT 08/20/2024 3:39 AM EDT Narrative [facility] - 08/20/2024 10:17 AM EDT Assay performed by immunoassay at the [facility]. Performed on [employer] chemiluminescent immunoassay, tractable to the World Health Organization's first international standard for PTH from the NIBSC, Code 79/500. Results obtained from different test methods or kits cannot be used interchangeably. us Jameson Issa MD LAB BLOOD ORDERABLES Final Re sult Performing Organization Address City/[facility] Co de Phone Number [facility] [address] [place] [address] * (ABNORMAL) Ferritin (08/20/2024 3:05 AM EDT) Ferritin, Serum 755(H) 20 - 400 ng/mL 08/20/2024 8:40 AM EDT [facility] Blood Venous blood specimen / Unknown Venipuncture / Unknown 08/20/2024 3:05 AM EDT 08/20/2024 3:30 AM EDT Jameson Issa MD LAB BLOOD ORDERABLES Final Re sult Performing Organization Address [facility] [place] [address] * Vancomycin, Random, Plasma (08/18/2024 4:17 AM EDT) Only the most recent of19 resultswithin the time period is included. Vancomycin, Random, Plasma 27.5 ug/mL 08/18/2024 4:58 AM EDT [facility] Blood Venous blood specimen / Unknown Venipuncture / Unknown 08/18/2024 4:17 AM EDT 08/18/2024 4:33 AM EDT Pascual Jama MD LAB BLOOD ORDERABLES Final R esult Performing Organization Address [facility] Co de Phone Number [facility] [address] [place] [address] * CT Angio Pulmonary Embolism (08/17/2024 6:55 PM EDT) Anatomical Region Laterality Modality Chest Computed Tomogra phy Impressions 08/17/2024 7:55 PM EDT No pulmonary embolism. Increased bilateral pleural effusions, left more than right with worsening compressive atelectasis and left lower lobe collapse. CRITICAL RESULT: No. COMMUNICATION: Per this written report. Drafted by Josseline Foy MD on 08/17/2024 7:45 PM Final report signed by Josseline Foy MD on 08/17/2024 7:55 PM Narrative 08/17/2024 7:55 PM EDT CLINICAL INDICATION: Pulmonary embolism (PE) suspected, high prob TECHNIQUE: Imaging of the chest was performed from thoracic inlet through upper abdomen, using spiral technique, with administration of IV contrast per the pulmonary angiogram protocol. 100 mL of Omnipaque-350 were administered intravenously. Coronal MIP images were reconstructed from this dataset. COMPARISON: Chest CT July 31, 2024 FINDINGS: Pulmonary Arteries/Vessels: No filling defect. Right Heart Strain: Reflux of contrast into the IVC and hepatic vein suggests elevated right heart pressure. Mediastinum and Pleura: No mediastinal or hilar adenopathy. Small pericardial effusion. Small right and moderate left pleural effusions. Right internal jugular central venous catheter tip in the distal SVC. Lungs: Central airways are clear. Collapse of the left lower lobe. Atelectasis in the left upper and right lower lobes. Mild groundglass attenuation. Upper Abdomen: Ascites. Musculoskeletal: No suspicious lytic or sclerotic lesion. Increased osseous density consistent with renal osteodystrophy. Procedure Note Josseline Foy MD - 08/17/2024 CLINICAL INDICATION: Pulmonary embolism (PE) suspected, high prob TECHNIQUE: Imaging of the chest was performed from thoracic inlet through upperabdomen, using spiral technique, with administration of IV contrast perthe pulmonary angiogram protocol. 100 mL of Omnipaque-350 wereadministered intravenously. Coronal MIP images were reconstructed fromthis dataset. COMPARISON: Chest CT July 31, 2024 FINDINGS: Pulmonary Arteries/Vessels: No filling defect. Right Heart Strain: Reflux of contrast into the IVC and hepatic veinsuggests elevated right heart pressure. Mediastinum and Pleura: No mediastinal or hilar adenopathy. Smallpericardial effusion. Small right and moderate left pleural effusions.Right internal jugular central venous catheter tip in the distal SVC. Lungs: Central airways are clear. Collapse of the left lower lobe.Atelectasis in the left upper and right lower lobes. Mild groundglassattenuation. Upper Abdomen: Ascites. Musculoskeletal: No suspicious lytic or sclerotic lesion. Increasedosseous density consistent with renal osteodystrophy. IMPRESSION: No pulmonary embolism. Increased bilateral pleural effusions, left more than right with worseningcompressive atelectasis and left lower lobe collapse. CRITICAL RESULT: No. COMMUNICATION: Per this written report. Drafted by Josseline Foy MD on 08/17/2024 7:45 PM Final report signed by Josseline Foy MD on 08/17/2024 7:55 PM Pascual Jama MD IMG CT PROCEDURES Final Resu lt * SARS-CoV-2, Flu A, Flu B, and RSV (08/17/2024 5:57 PM EDT) SARS CoV-2/COVID-19 RNA PCR Result Not Detected Not Detected 08/18/2024 10:49 AM EDT [facility] Influenza A Virus PCR Result Not Detected Not Detected 08/18/2024 10:49 AM EDT [facility] Influenza B Virus PCR Result Not Detected Not Detected 08/18/2024 10:49 AM EDT [facility] Respiratory Syncytial Virus (RSV) PCR Result Not Detected Not Detected 08/18/2024 10:49 AM EDT [facility] Swab Nasopharyngeal structure / Unknown Non-blood Collection / Unknown 08/17/2024 5:57 PM EDT 08/17/2024 6:03 PM EDT Narrative [facility] - 08/18/2024 10:49 AM EDT This test is FDA approved for use with nasopharyngeal specimens in Viral Transport Media (VTM). This test is used for clinical purposes. It should not be regarded as investigational or for research. This laboratory is certified under the Clinical Laboratory improvement Amendments of 1988 (CLIA-88 as qualified to perform high complexity clinical laboratory testing. This test was performed on the [employer] Respiratory Viral Panel, a PCR-based method. Negative results should be considered presumptive and do not preclude current or future infection obtained through community transmission or other exposures. Negative results must be considered in the context of an individual's recent exposures, history, presence of clinical signs and symptoms consistent with COVID-19, Influenza A or B, and RSV. Pascual Jama MD LAB MICROBIOLOGY - GENERAL O RDERABLES Final Result [facility] [address] [place] [address] * (ABNORMAL) Blood gas panel, venous (08/17/2024 9:09 AM EDT) Only the most recent of3 resultswithin the time period is included. pH, Venous 7.46(H) 7.32 - 7.43 LAB HEMATOLOGY METHOD 08/17/2024 9:26 AM EDT [facility] pCO2, Venous 35(L) 40 - 55 mmHg LAB HEMATOLOGY METHOD 08/17/2024 9:26 AM EDT [facility] pO2, Venous 41(H) 25 - 40 mmHg LAB HEMATOLOGY METHOD 08/17/2024 9:26 AM EDT [facility] SO2, Measured, Venous 76 65 - 80 % LAB HEMATOLOGY METHOD 08/17/2024 9:26 AM EDT [facility] Base Excess, Venous 1.0 -2.0 - 3.0 mmol/L LAB HEMATOLOGY METHOD 08/17/2024 9:26 AM EDT [facility] Bicarbonate, Calculated, Venous 25 22 - 26 mmol/L LAB HEMATOLOGY METHOD 08/17/2024 9:26 AM EDT [facility] Hematocrit, Whole Blood 25.7(L) 40.0 - 51.0 % LAB HEMATOLOGY METHOD 08/17/2024 9:26 AM EDT [facility] Sodium, Whole Blood 132(L) 136 - 145 mmol/L LAB HEMATOLOGY METHOD 08/17/2024 9:26 AM EDT [facility] Potassium, Whole Blood 4.6 3.6 - 4.9 mmol/L LAB HEMATOLOGY METHOD 08/17/2024 9:26 AM EDT [facility] Chloride, Whole Blood 97 97 - 107 mmol/L LAB HEMATOLOGY METHOD 08/17/2024 9:26 AM EDT [facility] Glucose, Whole Blood 91 74 - 99 mg/dL LAB HEMATOLOGY METHOD 08/17/2024 9:26 AM EDT [facility] Lactate, Venous, Whole Blood 0.7 0.5 - 2.2 mmol/L LAB HEMATOLOGY METHOD 08/17/2024 9:26 AM T [facility] Ionized Calcium, Whole Blood 4.2(L) 4.6 - 5.1 mg/dL LAB HEMATOLOGY METHOD 08/17/2024 9:26 AM EDT [facility] Blood Venous blood specimen / Unknown Venipuncture / Unknown 08/17/2024 9:09 AM EDT 08/17/2024 9:24 AM EDT us Pascual Jama MD LAB BLOOD ORDERABLES Final R esult [facility] [address] [place] [address] * XR Chest 1 View (08/17/2024 9:03 AM EDT) Only the most recent of8 resultswithin the time period is included. Anatomical Region Laterality Modality Chest Digital Radiogra phy Impressions 08/17/2024 9:53 AM EDT Interval discontinuation of pericardial drain; otherwise, stable exam. CRITICAL RESULT: No. COMMUNICATION: Per this written report. Drafted by Julissa Kovacs MD on 08/17/2024 9:44 AM Final report signed by Julissa Kovacs MD on 08/17/2024 9:53 AM Narrative 08/17/2024 9:53 AM EDT CLINICAL INDICATION: Increased oxygen requirement TECHNIQUE: XR CHEST 1 VIEW COMPARISON: August 12, 2024 FINDINGS: Right IJ CVC tip appears at the upper right atrium. Interval discontinuation of pericardial drain. Stably enlarged cardiac silhouette. Similar medium sized left and small right pleural effusions. Persistent left perihilar and infrahilar opacities, greatest in the retrocardiac left lower pulmonary lobe. No pneumothorax. Procedure Note Julissa Kovacs MD - 08/17/2024 CLINICAL INDICATION: Increased oxygen requirement TECHNIQUE: XR CHEST 1 VIEW COMPARISON: August 12, 2024 FINDINGS: Right IJ CVC tip appears at the upper right atrium. Intervaldiscontinuation of pericardial drain. Stably enlarged cardiac silhouette.Similar medium sized left and small right pleural effusions. Persistentleft perihilar and infrahilar opacities, greatest in the retrocardiac leftlower pulmonary lobe. No pneumothorax. IMPRESSION: Interval discontinuation of pericardial drain; otherwise, stable exam. CRITICAL RESULT: No. COMMUNICATION: Per this written report. Drafted by Julissa Kovacs MD on 08/17/2024 9:44 AM Final report signed by Julissa Kovacs MD on 08/17/2024 9:53 AM us Pascual Jama MD IMG XR PROCEDURES Final Resu lt * (ABNORMAL) Hemoglobin and Hematocrit, Blood (08/16/2024 9:42 AM EDT) Only the most recent of9 resultswithin the time period is included. HGB 7.0(L) 13.7 - 17.5 g/dL LAB HEMATOLOGY METHOD 08/16/2024 10:01 AM EDT [facility] HCT 22.4(L) 40.0 - 51.0 % LAB HEMATOLOGY METHOD 08/16/2024 10:01 AM EDT [facility] Blood Venous blood specimen / Unknown Venipuncture / Unknown 08/16/2024 9:42 AM EDT 08/16/2024 9:59 AM EDT Pascual Jama MD LAB BLOOD ORDERABLES Final R esult Performing Organization Address City/[facility] Co de Phone Number [facility] [address] [place] [address] * Transfuse RBC (08/15/2024 11:33 AM EDT) Only the most recent of4 resultswithin the time period is included. Amberly Fernández MD BLOOD TRANSFUSION ORDERABLE S Final Result * Prepare Leukocyte Reduced RBC: 1 Units (08/15/2024 4:40 AM EDT) Only the most recent of3 resultswithin the time period is included. Product Code [id number] BLOO D BANK Dispense Status Transfused BLOOD BANK Blood Expiration Date [id number] BLOOD BANK Unit Number [id number] B LOOD BANK Product Blood Type 7300 BLOOD BANK Blood Type B+ BLOOD BANK Crossmatch Compatible BLOOD BANK Other Amberly Fernández MD BLOOD BANK PRODUCT ORDERABL ES Final Result BLOOD BANK [address] [place] [address], [place] * IR Tunneled Central Venous Catheter Placement 5+ Years (08/13/2024 5:04 PM EDT) Anatomical Region Laterality Modality X-Ray Angiograph y Impressions 08/13/2024 5:29 PM EDT Successful placement of tunneled right internal jugular venous catheter; line is ready for use. Tip of catheter is in proximal right atrium. CRITICAL RESULT: No. COMMUNICATION: Per this written report. Drafted by Salas Zacarias MD on 08/13/2024 5:25 PM Final report signed by Salas Zacarias MD on 08/13/2024 5:29 PM Narrative 08/13/2024 5:29 PM EDT CLINICAL INDICATION: 1980 Male ESRD on HD via RIJ Trialysis, Needing TDC for assisted HD access TECHNIQUE: Human Resources Manager: Salas Zacarias M.D Fluoroscopy Time: 0.2 min, Air kerma 2 mGy Medications: 1% Lidocaine with Epi Subcutaneously. Conscious Sedation with IV Midazolam 1.5 mg and IV Fentanyl 75 mcg were provided. Continuous physiologic monitoring provided by a qualified healthcare professional. Duration of Conscious Sedation: Time out: 16:46 close out: 17:02 Procedure: Fluoroscopic Placement of Right Internal Jugular Vein Tunneled Dialysis Catheter After discussion of risks and benefits, informed written consent was obtained from the patient. Appropriate time out was done to confirm patient identity, and planned procedure. The patient was placed supine on the fluoro table. Strict hand hygiene protocol was observed. All personnel in the room were attired in surgical hat and mask. The operators were in surgical hat, mask, sterile gloves, and gowns. The operative site was prepped with 2% chlorhexidine for cutaneous antisepsis followed by sterile barrier draping. Conscious sedation was initiated. Ultrasound guidance was used to evaluate potential access sites. The right internal jugular vein was identified as adequate in caliber and patency for vascular access under real time ultrasound visualization of needle entry into the vessel. Local anesthetic was administered. Ultrasound guided access to the right internal jugular vein was obtained with a 21 gauge Micropuncture needle, followed by advancement of a 0.018 soft tipped wire into the SVC under fluoroscopic guidance. Ultrasound images were sent to permanent storage in PACS. A 4Fr Micropuncture sheath was placed over the wire. A small incision was then made several cm below the clavicle. Lidocaine with epinephrine was then used to anesthetize a tract from the small infraclavicular incision to the puncture site at the base of the neck. A blunt tunneling device was then used to pass the catheter to the access site. Through the 4Fr sheath a 0.035 J wire was advanced into the IVC, the tract sequentially dilated, and finally over the wire a 15 Fr peel away sheath was placed, followed by removal of the wire. While the patient maintained positive thoracic pressure, the catheter was passed into the SVC and the peel away removed. Tip position was recorded with a single digital spot image. The lumens were aspirated, flushed with saline, and then packed with heparinized saline at an amount appropriate for the volumes of the lumens. The catheter was secured to the skin at the chest with 2-0 prolene sutures. 4-0 monocryl and Dermabond was used to close the neck access site. A CHG Dressing was placed at the skin entry site. A sterile occlusive dressing was then applied. The patient tolerated the procedure well with no evidence of complication. RIJ Trialysis Catheter was removed on expiration and site covered with dry, sterile, occlusive dressing. Device: Glidepath 14.5 Fr 23 cm tip to cuff. COMPARISON: Not applicable. FINDINGS: Pre-existing RIJ Trialysis Catheter Small non occlusive clot adhered to the trialysis catheter. COMPLICATION: No immediate. 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 Conscious Sedation withIV Midazolam 1.5 mg and IV Fentanyl 75 mcg were provided. Continuousphysiologic monitoring provided by a qualified healthcare professional. Duration of Conscious Sedation: Time out: 16:46 close out: 17:02 Procedure: Fluoroscopic Placement of Right Internal Jugular Vein Tunneled DialysisCatheter After discussion of risks and benefits, informed written consent wasobtained from the patient. Appropriate time out was done to confirmpatient identity, and planned procedure. The patient was placed supine onthe fluoro table. Strict hand hygiene protocol was observed. Allpersonnel in the room were attired in surgical hat and mask. Theoperators were in surgical hat, mask, sterile gloves, and gowns. Theoperative site was prepped with 2% chlorhexidine for cutaneous antisepsisfollowed by sterile barrier draping. Conscious sedation was initiated. Ultrasound guidance was used to evaluate potential access sites. Theright internal jugular vein was identified as adequate in caliber andpatency for vascular access under real time ultrasound visualization ofneedle entry into the vessel. Local anesthetic was administered.Ultrasound guided access to the right internal jugular vein was obtainedwith a 21 gauge Micropuncture needle, followed by advancement of a 0.018soft tipped wire into the SVC under fluoroscopic guidance. Ultrasoundimages were sent to permanent storage in PACS. A 4Fr Micropuncture sheath was placed over the wire. A small incision wasthen made several cm below the clavicle. Lidocaine with epinephrine wasthen used to anesthetize a tract from the small infraclavicular incisionto the puncture site at the base of the neck. A blunt tunneling device wasthen used to pass the catheter to the access site. Through the 4Fr sheatha 0.035 J wire was advanced into the IVC, the tract sequentially dilated,and finally over the wire a 15 Fr peel away sheath was placed, followed byremoval of the wire. While the patient maintained positive thoracicpressure, the catheter was passed into the SVC and the peel away removed. Tip position was recorded with a single digital spot image. The lumenswere aspirated, flushed with saline, and then packed with heparinizedsaline at an amount appropriate for the volumes of the lumens. Thecatheter was secured to the skin at the chest with 2-0 prolene sutures.4-0 monocryl and Dermabond was used to close the neck access site. A CHGDressing was placed at the skin entry site. A sterile occlusive dressingwas then applied. The patient tolerated the procedure well with noevidence of complication. RIJ Trialysis Catheter was removed on expiration and site covered withdry, sterile, occlusive dressing. Device: Glidepath 14.5 Fr 23 cm tip to cuff. COMPARISON: Not applicable. FINDINGS: Pre-existing RIJ Trialysis Catheter Small non occlusive clot adhered to the trialysis catheter. COMPLICATION: No immediate. IMPRESSION: Successful placement of tunneled right internal jugular venous catheter;line is ready for use. Tip of catheter is in proximal right atrium. CRITICAL RESULT: No. COMMUNICATION: Per this written report. Drafted by Salas Zacarias MD on 08/13/2024 5:25 PM Final report signed by Salas Zacarias MD on 08/13/2024 5:29 PM us Juan Mansuhl Jayesh Pastrana MD IMG LUCY MOSS Final Result * XR Abdomen 1 View (08/13/2024 6:53 AM EDT) Only the most recent of8 resultswithin the time period is included. Anatomical Region Laterality Modality Body Digital Radiogra phy Impressions 08/13/2024 9:00 AM EDT Compared to the abdomen image from the previous day there is now increased gas in the colon and decreased gas in the small bowel. CRITICAL RESULT: No. COMMUNICATION: Per this written report. Drafted by Cole Shaw MD on 08/13/2024 8:51 AM Final report signed by Cole Shaw MD on 08/13/2024 9:00 AM Narrative 08/13/2024 9:00 AM EDT CLINICAL INDICATION: monitor ileus vs obstruction TECHNIQUE: XR ABDOMEN 1 VIEW COMPARISON: Abdomen image 08/12/2024. CT 08/07/2024. FINDINGS: There is moderate diffuse gas within mildly dilated and nondilated colon.. The transverse colon and right colon are mildly dilated. There is gas within nondilated descending colon. There is moderate diffuse fecal material in the colon. There is moderate gas within nondilated small bowel. There is limited gas in the stomach. No pneumatosis or pneumoperitoneum. Unchanged lower chest. Compared to the abdomen image from the previous day there is now increased gas in the colon and decreased gas in the small bowel. Procedure Note Cole Shaw MD - 08/13/2024 CLINICAL INDICATION: monitor ileus vs obstruction TECHNIQUE: XR ABDOMEN 1 VIEW COMPARISON: Abdomen image 08/12/2024. CT 08/07/2024. FINDINGS: There is moderate diffuse gas within mildly dilated and nondilated colon..The transverse colon and right colon are mildly dilated. There is gaswithin nondilated descending colon. There is moderate diffuse fecalmaterial in the colon. There is moderate gas within nondilated smallbowel. There is limited gas in the stomach. No pneumatosis orpneumoperitoneum. Unchanged lower chest. Compared to the abdomen image from the previous day there is now increasedgas in the colon and decreased gas in the small bowel. IMPRESSION: Compared to the abdomen image from the previous day there is now increasedgas in the colon and decreased gas in the small bowel. CRITICAL RESULT: No. COMMUNICATION: Per this written report. Drafted by Cole Shaw MD on 08/13/2024 8:51 AM Final report signed by Cole Shaw MD on 08/13/2024 9:00 AM us Kathy Landa MD IMG XR PROCEDURES Final Result * (ABNORMAL) Ionized calcium, whole blood (08/13/2024 12:48 AM EDT) Only the most recent of2 resultswithin the time period is included. Ionized Calcium, Whole Blood 4.1(L) 4.6 - 5.1 mg/dL LAB HEMATOLOGY METHOD 08/13/2024 12:55 AM EDT [facility] Blood Venous blood specimen / Unknown Venipuncture / Unknown 08/13/2024 12:48 AM EDT 08/13/2024 12:53 AM EDT us Kathy Landa MD LAB BLOOD ORDERABLES Final Resul t [facility] [address] [place] [address] * [place] CRITICAL CARE, E/M 30-74 MINUTES (08/10/2024 4:07 PM EDT) Narrative Iglesia Hutchins MD - 08/10/2024 4:07 PM EDT Iglesia Hutchins MD 08/12/2024 3:43 PM Critical Care Performed by: Iglesia Hutchins MD Authorized by: Iglesia Hutchins MD Critical care provider statement: Critical care time (minutes): 36 Critical care time was exclusive of: Separately billable procedures and treating other patients and teaching time Critical care was time spent personally by me on the following activities: Development of treatment plan with patient or surrogate, discussions with consultants, discussions with primary provider, evaluation of patient's response to treatment, examination of patient, obtaining history from patient or surrogate, ventilator management, review of old charts, ordering and review of radiographic studies, ordering and review of laboratory studies and ordering and performing treatments and interventions I assumed subsequent critical care for this patient from a provider in my division, on the same day: no Critical care statement: I saw and evaluated the patient with the resident/ fellow. I discussed the case with the resident/ fellow and agree with the findings and plan as documented. Comments: 44 YO M with a history of ESRD, substance use disorder who presented with acute hypoxic respiratory failure in the setting of hypervolemia, subsequently progressing to need for intubation followed by the development of hypotension. Patient found to have MRSA bacteremia prompting removal of tunneled HD line; have been holding HD while treating bacteremia until clearance is documented. Hospital course also complicated by enlarging pericardial effusion with associated shock physiology requiring pericardiocentesis and placement of drain. Hemodialysis resumed 08/08 given worsening uremia, volume status, and hyperkalemia and concern that pericardial effusion may be secondary to uremic pericarditis. Successfully extubated yesterday and weaning off of precedex infusion today. Will continue diuresis to mitigate volume, continue antimicrobial therapy. Note that physical examination states that patient is intubated on today's examination which is incorrect. The patient is extubated. us Iglesia Hutchins MD IN CLINIC/BEDSIDE ORDERABLES Final Result * [place] CRITICAL CARE, E/M 30-74 MINUTES (08/09/2024 8:44 AM EDT) Narrative Iglesia Hutchins MD - 08/09/2024 8:44 AM EDT Iglesia Hutchins MD 08/09/2024 3:00 PM Critical Care Performed by: Iglesia Hutchins MD Authorized by: Iglesia Hutchins MD Critical care provider statement: Critical care time (minutes): 36 Critical care time was exclusive of: Separately billable procedures and treating other patients and teaching time Critical care was time spent personally by me on the following activities: Development of treatment plan with patient or surrogate, discussions with consultants, discussions with primary provider, evaluation of patient's response to treatment, examination of patient, obtaining history from patient or surrogate, ventilator management, review of old charts, ordering and review of radiographic studies, ordering and review of laboratory studies and ordering and performing treatments and interventions I assumed subsequent critical care for this patient from a provider in my division, on the same day: no Critical care statement: I saw and evaluated the patient with the resident/ fellow. I discussed the case with the resident/ fellow and agree with the findings and plan as documented. Comments: 44 YO M with a history of ESRD, substance use disorder who presented with acute hypoxic respiratory failure in the setting of hypervolemia, subsequently progressing to need for intubation followed by the development of hypotension. Patient found to have MRSA bacteremia prompting removal of tunneled HD line; have been holding HD while treating bacteremia until clearance is documented. Hospital course also complicated by enlarging pericardial effusion with associated shock physiology requiring pericardiocentesis and placement of drain. Hemodialysis resumed 08/08 given worsening uremia, volume status, and hyperkalemia and concern that pericardial effusion may be secondary to uremic pericarditis. Will wean sedation as possible to assess for extubation today following completion of iHD. Iglesia Hutchins MD IN CLINIC/BEDSIDE ORDERABLES Final Result * (ABNORMAL) Hepatitis B Surface Antibody, Quantitative (08/08/2024 4:17 PM EDT) [facility] Hepatitis B Surface Antibody, Quantitative >1,000.00 (H) NonReacti ve: <8, Grayzone: 8 - <12, Reactive: >= 12 mIU/mL 08/08/2024 5:27 PM EDT [facility] Comment: Reactive. Individual is considered immune to HBV infection. Blood Venous blood specimen / Unknown Venipuncture / Unknown 08/08/2024 4:17 PM EDT 08/08/2024 4:28 PM EDT Iglesia Hutchins MD LAB BLOOD ORDERABLES Final R esult [facility] [address] [place] [address] * Acute Hepatitis Panel (08/08/2024 4:17 PM EDT) [facility] Hepatitis B Surf Antigen Negative Negative 08/08/2024 5:27 PM EDT [facility] Hepatitis A Antibody IgM Negative Negative 08/08/2024 5:27 PM EDT [facility] Hepatitis B Core Antibody IgM Negative Negative 08/08/2024 5:27 PM EDT [facility] Blood Venous blood specimen / Unknown Venipuncture / Unknown 08/08/2024 4:17 PM EDT 08/08/2024 4:28 PM EDT Narrative [facility] - 08/08/2024 5:27 PM EDT Hepatitis C Antibody previously reported Positive on patient and will not be repeated on this panel. Patient is expected to test positive for Hepatitis C Antibody for the rest of their life. See previous results below: Hepatitis C Antibody Date Value Ref Range Status 03/15/2022 Positive (A) Negative Final us Iglesia Hutchins MD LAB BLOOD ORDERABLES Final R esult [facility] [address] [place] [address] * [place] INSERT NON-TUNNEL CV CATH, HC INSERT NON-TUNNEL CV CATH, CVC TRIPLE LUMEN (SMARTFORM LINK) (08/08/2024 3:00 PM EDT) Narrative Iglesia Hutchins MD - 08/08/2024 3:00 PM EDT Iglesia Hutchins MD 08/08/2024 4:17 PM Central Line Performed by: Angel Briones MD Authorized by: Iglesia Hutchins MD Consent: Consent obtained: Written Consent given by: Healthcare agent Risks, benefits, and alternatives were discussed: yes Risks discussed: Arterial puncture, bleeding, incorrect placement, infection, nerve damage and pneumothorax Alternatives discussed: No treatment and delayed treatment [place] protocol: Procedure explained and questions answered to patient or proxy's satisfaction: yes Relevant documents present and verified: yes Required blood products, implants, devices, and special equipment available: yes Site/side marked: yes Immediately prior to procedure, a time out was called: yes Patient identity confirmed: Anonymous protocol, patient vented/unresponsive Attending Supervision?: yes Pre-procedure details: Indication(s): central venous access Hand hygiene: Hand hygiene performed prior to insertion Sterile barrier technique: All elements of maximal sterile technique followed Skin preparation: Chlorhexidine Skin preparation agent: Skin preparation agent completely dried prior to procedure Sedation: Sedation type: Deep Anesthesia: Anesthesia method: Local infiltration Local anesthetic: Lidocaine 1% w/o epi Procedure details: Location: R internal jugular Patient position: Supine Procedural supplies: Triple lumen Catheter size: 7 Fr Landmarks identified: yes Ultrasound guidance: yes Ultrasound guidance timing: prior to insertion and real time Sterile ultrasound techniques: Sterile gel and sterile probe covers were used Number of attempts: 1 Successful placement: yes Post-procedure details: Post-procedure: Dressing applied and line sutured Assessment: Blood return through all ports, free fluid flow, no pneumothorax on x-ray and placement verified by x-ray Procedure completion: Tolerated well, no immediate complications us Iglesia Hutchins MD IN CLINIC/BEDSIDE ORDERABLES Final Result * [place] CRITICAL CARE, E/M 30-74 MINUTES (08/08/2024 12:14 PM EDT) Narrative Iglesia Hutchins MD - 08/08/2024 12:14 PM EDT Iglesia Hutchins MD 08/09/2024 2:58 PM Critical Care Performed by: Iglesia Hutchins MD Authorized by: Iglesia Hutchins MD Critical care provider statement: Critical care time (minutes): 38 Critical care time was exclusive of: Separately billable procedures and treating other patients and teaching time Critical care was time spent personally by me on the following activities: Development of treatment plan with patient or surrogate, discussions with consultants, discussions with primary provider, evaluation of patient's response to treatment, examination of patient, obtaining history from patient or surrogate, ventilator management, review of old charts, ordering and review of radiographic studies, ordering and review of laboratory studies and ordering and performing treatments and interventions I assumed subsequent critical care for this patient from a provider in my division, on the same day: no Critical care statement: I saw and evaluated the patient with the resident/ fellow. I discussed the case with the resident/ fellow and agree with the findings and plan as documented. Comments: 44 YO M with a history of ESRD, substance use disorder who presented with acute hypoxic respiratory failure in the setting of hypervolemia, subsequently progressing to need for intubation followed by the development of hypotension. Patient found to have MRSA bacteremia prompting removal of tunneled HD line; have been holding HD while treating bacteremia until clearance is documented. Hospital course also complicated by enlarging pericardial effusion with associated shock physiology requiring pericardiocentesis and placement of drain. Resuming hemodialysis today given worsening uremia and concern that pericardial effusion may be secondary to uremic pericarditis. Will otherwise continue antimicrobial therapy, lung protective ventilation, hemodynamic support. us Iglesia Hutchins MD IN CLINIC/BEDSIDE ORDERABLES Final Result * (ABNORMAL) Lactate dehydrogenase (08/08/2024 12:16 AM EDT) Pathologist [facility] LDH, Plasma 294(H) 116 - 250 U/L 08/08/2024 7:49 AM EDT [facility] Comment:Hemolyzed, result ma y be falsely increased. Blood Arterial blood specimen / Unknown Venipuncture / Unknown 08/08/2024 12:16 AM EDT 08/08/2024 12:30 AM EDT us Iglesia Hutchins MD LAB BLOOD ORDERABLES Final R esult [facility] [address] [place] [address] * (ABNORMAL) Hepatic function panel (08/08/2024 12:16 AM EDT) Only the most recent of2 resultswithin the time period is included. Pathologist [facility] Conjugated Bilirubin, Plasma <0.2 <=0.3 mg/dL 08/08/2024 1:14 AM EDT [facility] Comment:Hemolyzed, result ma y be falsely decreased. Alkaline Phosphatase, Plasma 270(H) 40 - 115 U/L 08/08/2024 1:14 AM EDT [facility] Total Bilirubin, Plasma 0.3 0.2 - 1.1 mg/dL 08/08/2024 1:14 AM EDT [facility] Albumin, Plasma 2.3(L) 3.5 - 5.2 g/dL 08/08/2024 1:14 AM EDT [facility] Total Protein 5.8(L) 6.3 - 7.9 g/dL 08/08/2024 1:14 AM EDT [facility] ALT, Plasma 18 10 - 50 U/L 08/08/2024 1:14 AM EDT [facility] AST, Plasma 18 10 - 50 U/L 08/08/2024 1:14 AM EDT [facility] Comment:Hemolyzed, result ma y be falsely increased. Blood Arterial blood specimen / Unknown Venipuncture / Unknown 08/08/2024 12:16 AM EDT 08/08/2024 12:30 AM EDT us Iglesia Hutchins MD LAB BLOOD ORDERABLES Final R esult Performing Organization Address City/[facility]/ZIP Co de Phone Number [facility] [address] [place] [address] * Fungal Culture, Sterile Body Fluid (NOT CSF) and AVELINA (08/07/2024 6:20 PM EDT) Culture No Fungal Growth at 3 Weeks 08/29/2024 10:26 AM EDT [facility] AVELINA No fungal elements seen 08/29/2024 10:26 AM EDT [facility] Pericardial Fluid Pericardial structure / Unknown Non-blood Collection / Unknown 08/07/2024 6:20 PM EDT 08/07/2024 6:20 PM EDT us Iglesia Hutchins MD LAB MICROBIOLOGY - GENERAL O RDERABLES Final Result Performing Organization Address City/[facility] Co de Phone Number [facility] [address] [place] [address] * AFB Culture and Acid Fast Stain - Pleural Right (08/07/2024 6:20 PM EDT) AFB Culture No Mycobacterial Growth at 6 Weeks 09/19/2024 9:56 AM EDT [facility] Acid Fast Stain No acid fast bacilli seen 09/19/2024 9:56 AM EDT [facility] Pericardial Fluid Pericardial structure / Unknown Non-blood Collection / Unknown 08/07/2024 6:20 PM EDT 08/07/2024 6:20 PM EDT us Iglesia Hutchins MD LAB MICROBIOLOGY - GENERAL O RDERABLES Final Result Performing Organization Address City/[facility]/ZIP Co de Phone Number [facility] [address] [place] [address] * Body Fluid Culture and Gram Stain - Pleural Right (08/07/2024 6:20 PM EDT) Only the most recent of2 resultswithin the time period is included. Culture No growth at day 4 2024 1:45 PM EDT [facility] Gram Stain Result Moderate Polymorphonuclear leukocytes 08/10/2024 1:45 PM EDT [facility] Gram Stain Result No organisms seen 08/10/2024 1:45 PM EDT [facility] Pericardial Fluid Pericardial structure / Unknown Non-blood Collection / Unknown 08/07/2024 6:20 PM EDT 08/07/2024 6:20 PM EDT Iglesia Hutchins MD LAB MICROBIOLOGY - GENERAL O RDERABLES Final Result [facility] [address] [place] [address] * Chylomicron Electrophoresis (Reflex Only) (08/07/2024 4:47 PM EDT) Chylomicron Electrophoresis Billed 08/13/2024 5:03 PM EDT [facility] Fluid 08/07/2024 4:47 PM EDT 08/07/2024 5:50 PM EDT Narrative [facility] ([facility] - 08/13/2024 5:03 PM EDT Performed By: [facility] [address] [place] [id number] [employer] Attendant: Deangelo Gee MD, PhD CLIA Number: [id number] Iglesia Hutchins MD LAB REF LAB BLOOD AND FLUID ORD Final Result [facility] [address] [place] [address] * (ABNORMAL) TRG BF with RFLX to CHYLO (SO) (08/07/2024 4:47 PM EDT) Triglyceride, Fluid 158 mg/dL 08/13/2024 5:03 PM EDT [facility] ([facility]) Triglyceride Fluid Source Pericardial fl 08/13/2024 5:03 PM EDT [facility] ([facility]) Chylomicron Screen, Body Fluid Present(A) Absent 08/13/2024 5:03 PM EDT [facility] ([facility]) Fluid 08/07/2024 4:47 PM EDT 08/07/2024 5:50 PM EDT Narrative [facility]) - 08/13/2024 5:03 PM EDT INTERPRETIVE INFORMATION: Triglycerides, Fluid For information on body fluid reference ranges and/or interpretive guidance visit [email or web address] This test was developed and its performance characteristics determined by [facility]. It has not been cleared or approved by the US Food and Drug Administration. This test was performed in a CLIA certified laboratory and is intended for clinical purposes. Chylomicrons were detected. 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 INTERPRETIVE INFORMATION: Chylomicron Screen, Body Fluid This test was developed and its performance characteristics determined by [facility]. It has not been cleared or approved by the U.S. Food and Drug Administration. This test was performed in a CLIA-certified laboratory and is intended for clinical purposes. Performed By: [facility] [address] [place] [address] [employer]ing Machine Attendant: Deangelo Gee MD, PhD CLIA Number: [id number] Iglesia Hutchins MD LAB REF LAB BLOOD AND FLUID ORD Final Result [facility]) [address] [place] [address] * (ABNORMAL) Body Fluid Cell Count w/ Diff - Pleural Right (08/07/2024 4:47 PM EDT) Only the most recent of2 resultswithin the time period is included. Color, Body fluid Red LAB HEMATOLOGY METHOD 08/07/2024 11:31 PM EDT [facility] Appearance, Body fluid Cloudy(A) LAB HEMATOLOGY METHOD 08/07/2024 11:31 PM EDT [facility] Volume, Body fluid 50.0 cc LAB HEMATOLOGY METHOD 08/07/2024 11:31 PM EDT [facility] Fluid Container Specimen received in miscellaneous container LAB HEMATOLOGY METHOD 08/07/2024 11:31 PM EDT [facility] Red Blood Cell Count, Body fluid 183,625 uL LAB HEMATOLOGY METHOD 08/07/2024 11:31 PM EDT [facility] Comment:Test performed by ma nual method. Total Nucleated Cell Count, Body fluid 9,031 uL LAB HEMATOLOGY METHOD 08/07/2024 11:31 PM EDT [facility] Comment:Test performed by ma nual method. Neutrophils %, Body fluid 95 % LAB HEMATOLOGY METHOD 08/07/2024 11:31 PM EDT [facility] Lymphocytes %, Body fluid 3 % LAB HEMATOLOGY METHOD 08/07/2024 11:31 PM EDT [facility] Monocytes/Macr ophages %, Body fluid 1 % LAB HEMATOLOGY METHOD 08/07/2024 11:31 PM EDT [facility] Eosinophils %, Body fluid 1 % LAB HEMATOLOGY METHOD 08/07/2024 11:31 PM EDT [facility] Lining/Mesothe lial Cells %, Body fluid 0 % LAB HEMATOLOGY METHOD 08/07/2024 11:31 PM EDT [facility] Neutrophils Absolute (PMN), Body fluid 8,579 uL LAB HEMATOLOGY METHOD 08/07/2024 11:31 PM EDT [facility] Lymphocytes Absolute, Body fluid 271 uL LAB HEMATOLOGY METHOD 08/07/2024 11:31 PM EDT [facility] Monocytes/Macr ophages Absolute, Body fluid 90 uL LAB HEMATOLOGY METHOD 08/07/2024 11:31 PM EDT [facility] Eosinophils Absolute, Body fluid 90 uL LAB HEMATOLOGY METHOD 08/07/2024 11:31 PM EDT [facility] Basophils Absolute, Body fluid 0 uL LAB HEMATOLOGY METHOD 08/07/2024 11:31 PM EDT [facility] Lining/Mesothe lial Cells Absolute, Body fluid 0 uL LAB HEMATOLOGY METHOD 08/07/2024 11:31 PM EDT [facility] Basophils %, Body fluid 0 % LAB HEMATOLOGY METHOD 08/07/2024 11:31 PM EDT [facility] Pericardial Fluid Pericardial fluid specimen / Unknown 08/07/2024 4:47 PM EDT 08/07/2024 5:29 PM EDT Iglesia Hutchins MD LAB BODY FLUIDS AND STOOLS ORDERABLES NO SPECIMEN TYPE/SOURCE Final Result [facility] [address] [place] [address] * Protein, Total, Body Fluid (08/07/2024 4:47 PM EDT) TOTAL PROTEIN, FLUID 4.4 g/dL 08/11/2024 6:57 PM EDT [facility] ([facility]) TOTAL PROTEIN FLUID SOURCE Pericardial fl 08/11/2024 6:57 PM EDT [facility] ([facility]) Pericardial Fluid Non-blood Collection / Unknown 08/07/2024 4:47 PM EDT 08/07/2024 5:50 PM EDT Narrative [facility] ([facility]) - 08/11/2024 6:57 PM EDT INTERPRETIVE INFORMATION: Total Protein, Body Fluid For information on body fluid reference ranges and/or interpretive guidance visit [email or web address] This test was developed and its performance characteristics determined by [employer]. It has not been cleared or approved by the US Food and Drug Administration. This test was performed in a CLIA certified laboratory and is intended for clinical purposes. Performed By: [facility] [address] [place] [address] Fur Blowing Machine Attendant: Deangelo Gee MD, PhD CLIA Number: [id number] Iglesia Hutchins MD LAB REF LAB BLOOD AND FLUID ORD Final Result Performing Organization Address City/[facility]/ZIP Co de Phone Number [facility] ([facility]) [address] [place] [address] * ALBUMIN,OTHER,MISC FLUID (SO) (08/07/2024 4:47 PM EDT) ALBUMIN, FLUID 1711 mg/dL 08/12/2024 1:48 AM EDT [facility] ([facility]) Specimen Source Pericardial 08/12/2024 1:48 AM EDT [facility] ([facility]) Fluid Pericardial structure / Unknown 08/07/2024 4:47 PM EDT 08/07/2024 5:50 PM EDT Narrative [facility] ([facility]) - 08/12/2024 1:48 AM EDT INTERPRETIVE INFORMATION: Albumin, Body Fluid A reference interval has not been established for body fluid specimens. This test was developed and its performance characteristics determined by [facility]. It has not been cleared or approved by the U.S. Food and Drug Administration. This test was performed in a CLIA-certified laboratory and is intended for clinical purposes. Performed By: [facility] [address] [place] [address] Fur Blowing Machine Attendant: Deangelo Gee MD, PhD CLIA Number: [id number] Iglesia Hutchins MD LAB BODY FLUIDS AND STOOLS O RDERABLES Final Result Performing Organization Address [facility] Co de Phone Number [facility] ([facility]) [address] [place] [address] * GLUCOSE, BODY FLUID (SO) (08/07/2024 4:47 PM EDT) GLUCOSE, FLUID 52 mg/dL 08/11/2024 6:56 PM EDT [facility] ([facility]) GLUCOSE FLUID SOURCE Pericardial fl 08/11/2024 6:56 PM EDT [facility] ([facility]) Pericardial Fluid Non-blood Collection / Unknown 08/07/2024 4:47 PM EDT 08/07/2024 5:50 PM EDT Narrative [facility] ([facility]) - 08/11/2024 6:56 PM EDT INTERPRETIVE INFORMATION: Glucose, Body Fluid For information on body fluid reference ranges and/or interpretive guidance visit [email or web address]/ This test was developed and its performance characteristics determined by [facility]. It has not been cleared or approved by the US Food and Drug Administration. This test was performed in a CLIA certified laboratory and is intended for clinical purposes. Performed By: [facility] [address] [place] [address] Fur Blowing Machine Attendant: Deangelo Gee MD, PhD CLIA Number: [id number] Iglesia Hutchins MD LAB REF LAB BLOOD AND FLUID ORD Final Result Performing Organization Address [facility]/ZIP Co de Phone Number [facility] [address] [place] [address] * Lactate Dehydrogenase Total, Body Fluid (SO) (08/07/2024 4:47 PM EDT) Lactate Dehydrogenase Total, Body Fluid 1702 U/L 08/11/2024 6:57 PM EDT [facility] ([facility]) LDH Fluid Source Pericardial fl 070 08/2024 6:57 PM EDT [facility] ([facility]) Pericardial Fluid Non-blood Collection / Unknown 08/07/2024 4:47 PM EDT 08/07/2024 5:50 PM EDT Narrative [facility] ([facility]) - 08/11/2024 6:57 PM EDT INTERPRETIVE INFORMATION: Lactate Dehydrogenase Total, Body Fluid For information on body fluid reference ranges and/or interpretive guidance visit [email or web address] This test was developed and its performance characteristics determined by [facility]. It has not been cleared or approved by the US Food and Drug Administration. This test was performed in a CLIA certified laboratory and is intended for clinical purposes. Performed By: [facility] [address] [place] [address] Fur Blowing Machine Attendant: Deangelo Gee MD, PhD CLIA Number: [id number] Iglesia Hutchins MD LAB REF LAB BLOOD AND FLUID ORD Final Result [facility] ([facility]) [address] [id number] * Cholesterol Fluid Battery (08/07/2024 4:47 PM EDT) CHOLESTEROL, FLUID 93 mg/dL 08/11/2024 2:23 PM EDT [facility] ([facility]) CHOLESTEROL FLUID SOURCE Pericardial fl 08/11/2024 2:23 PM EDT [facility] ([facility]) Pericardial Fluid Non-blood Collection / Unknown 08/07/2024 4:47 PM EDT 08/07/2024 5:50 PM EDT Narrative [facility] ([facility]) - 08/11/2024 2:23 PM EDT INTERPRETIVE INFORMATION: Cholesterol, Body Fluid For information on body fluid reference ranges and/or interpretive guidance visit [email or web address] This test was developed and its performance characteristics determined by [facility]. It has not been cleared or approved by the US Food and Drug Administration. This test was performed in a CLIA certified laboratory and is intended for clinical purposes. Performed By: [facility] [address] [place] [id number] Fur Blowing Machine Attendant: Deangelo Gee MD, PhD CLIA Number: [id number] Iglesia Hutchins MD LAB REF LAB BLOOD AND FLUID ORD Final Result Performing Organization Address City/[facility]/ZIP Co de Phone Number [facility] ([facility]) [address] [place] [phone] * Adenosine Deaminase; N/A; N/A; N/A; N/A; N/A; Greater than a week (N/A) - Miscellaneous Test (08/07/2024 4:47 PM EDT) Test name Adenosine Deaminase 08/13/2024 4:01 PM EDT [facility] Test Result SEE SCANNED DOCUMENT 08/13/2024 4:01 PM EDT [facility] See Scanned Result 08/13/2024 4:01 PM EDT [facility] Pericardial Fluid Pericardial structure / Unknown Non-blood Collection / Unknown 08/07/2024 4:47 PM EDT 08/07/2024 8:11 PM EDT Iglesia Hutchins MD LAB REF LAB BLOOD AND FLUID ORD Final Result [facility] [address] [facility] [address] * Body fluid, cytospin, pathologist interpretation (08/07/2024 4:47 PM EDT) Only the most recent of2 resultswithin the time period is included. Specimen Type Pericardial Fluid LAB HEMATOLOGY METHOD 08/11/2024 4:36 PM EDT [facility] Specimen Source, Body Fluid Pericardial Fluid LAB HEMATOLOGY METHOD 08/11/2024 4:36 PM EDT [facility] Clinical Diagnosis, Body Fluid Large pericardial effusion, history of cirrhosis LAB HEMATOLOGY METHOD 08/11/2024 4:36 PM EDT [facility] Interpretation , Body Fluid No evidence of malignancy; Acute inflammatory cells, light blood. A resident was involved in the service. I attest I examined the relevant preparations for the specimens and confirmed the diagnosis or interpretation. 08/11/2024 4:36 PM EDT [facility] Pathologist Signature, Body Fluid 08/11/2024 4:36 PM EDT [facility] Comment:Reviewed by: Aria Vitale MD LAB CP ASR DISCLAIMER Yes 08/11/2024 4:36 PM EDT [facility] Pericardial Fluid Pericardial fluid specimen / Unknown 08/07/2024 4:47 PM EDT 08/07/2024 5:29 PM EDT Narrative [facility] - 08/11/2024 4:36 PM EDT Correlation with microbiology studies is suggested us Iglesia Hutchins MD LAB BODY FLUIDS AND STOOLS O RDERABLES Final Result [facility] [address] [place] [address] * Amylase, body fluid (08/07/2024 4:47 PM EDT) AMYLASE BODY FLUID 113 U/L 08/11/2024 6:56 PM EDT [facility] ([address] [facility] AMYLASE BODY FLUID SOURCE Drain 08/11/2024 6:56 PM EDT [facility] ([facility]) Drain Pericardial structure / Unknown 08/07/2024 4:47 PM EDT 08/07/2024 8:11 PM EDT Narrative [facility] ([facility]) - 08/11/2024 6:56 PM EDT INTERPRETIVE INFORMATION: Amylase, Body Fluid For information on body fluid reference ranges and/or interpretive guidance visit [email or web address] This test was developed and its performance characteristics determined by [facility]. It has not been cleared or approved by the US Food and Drug Administration. This test was performed in a CLIA certified laboratory and is intended for clinical purposes. Performed By: [facility] [address] [place] [address] Fur Blowing Machine Attendant: Deangelo Gee MD, PhD CLIA Number: [id number] Iglesia Hutchins MD LAB BODY FLUIDS AND STOOLS O RDERABLES Final Result [facility] ([facility]) [address] [place] [address] * Non-Gynecologic Cytology (08/07/2024 4:47 PM EDT) Only the most recent of2 resultswithin the time period is included. Case Report Cytology Case: [id number] Authorizing Provider: Iglesia Hutchins MD Collected: 08/07/2024 1647 Ordering Location: [facility] Supervisor Received: 08/11/2024 0852 Pathologist: Izzy Mcwilliams MD Specimen: Pericardial Fluid, PERICARDIAL FLUID 08/12/2024 12:37 PM EDT [facility] Final Diagnosis A. PERICARDIAL FLUID - NO EVIDENCE OF MALIGNANCY - BLOODY FLUID WITH ACUTE INFLAMMATORY CELLS 08/12/2024 12:37 PM EDT [facility] at 1237 EDT Clinical History septic, IVDU, heart failure, cirrhosis, ESRD 08/12/2024 12:37 PM EDT [facility] Previous Cancer No 08/12/2024 12:37 PM EDT [facility] Gross Description A. PERICARDIAL FLUID 80 ml's bloody fluid processed as thin prep and cell block Cold Time: 90h 13m 08/12/2024 12:37 PM EDT [facility] Non-Gynecologica l (Select Specimen Source) Pericardial fluid specimen / Unknown 08/07/2024 4:47 PM EDT 08/11/2024 8:52 AM EDT us Iglesia Hutchins MD LAB CYTOLOGY ORDERABLES Estefany l Result [facility] [address] [place] [address] * PERICARDIOCENTESIS (08/07/2024 4:37 PM EDT) Anatomical Region Laterality Modality Other Narrative 08/08/2024 6:25 AM EDT Results: 1. Successful pericardiocentesis via sub-xiphoid approach with 600mL of serosanguinous fluid removal and placement of a 8.3F pericardial drain. Recommendations: 1. Follow up pericardial fluid laboratory results. 2. Remove pericardial drain when drainage is less than 50 mL/24 hour period (anticipate 1-2 days). Procedure Details A time out was done to confirm the correct patient site and procedure. The patient's subcostal and parasternal regions were prepped and draped in sterile fashion. Under ultrasound guidance the subcostal region to the left of the xiphoid process was anesthetized with 1% lidocaine. A needle was then inserted into the pericardium and a J-tipped wire was inserted into the pericardial space. A 8.3F pigtail pericardial drain was then inserted over the wire and position was confirmed with fluoroscopy. 600 mL of serosanguinous fluid was drained and then the drain was connected to a tambourine drain. Fluid was sent for cell counts, culture, and cytology. Repeat echocardiography was performed to assess for residual effusion, which was minimal. The drain was sutured into place and a bacteriostatic dressing was applied. The patient was transferred out of the laboratory coordinator in improved condition. Pericardium Pericardiocentesis performed by the subxiphoid approach. The pre-procedural pericardial pressure was 19 mmHg. 600 mL of serosanguineous fluid was removed from the pericardial cavity. The post-procedural pericardial pressure was 10 mmHg. Iglesia Hutchins MD CV CARDIAC CATH PROCEDURES F inal Result * CT Abdomen Pelvis wo IV Contrast (08/07/2024 11:43 AM EDT) Anatomical Region Laterality Modality Abdomen, Pelvis Computed Tomogra phy Impressions 08/07/2024 12:57 PM EDT No evidence of bowel obstruction. There is nonspecific caliber dilatation of the ascending and transverse colonic segments that could represent an element of ileus. Worsening pleural and pericardial effusions. The pericardial effusion is now moderate to severe. CRITICAL RESULT: No. COMMUNICATION: Per this written report. Drafted by Edilia Louie MD on 08/07/2024 12:21 PM Final report signed by Edilia Louie MD on 08/07/2024 12:57 PM Narrative 08/07/2024 12:57 PM EDT CLINICAL INDICATION: Bowel obstruction suspected TECHNIQUE: Multiple axial CT images were obtained from lung bases through pubic symphysis without the administration of IV contrast. Reformatted images in the coronal and sagittal planes were generated from the axial data set to facilitate diagnostic accuracy. Total DLP (Dose-Length Product): 1635 mGy*cm. Please note: The reported value represents the total of one or more individual components during the CT acquisition on this date and at this time, and as such, the same value may appear in more than one CT report depending on the interpreting/reporting physicians. COMPARISON: Abdominal radiograph [address] 07/31/2024 FINDINGS: Lower Chest: Moderate and somewhat lobulated appearing left pleural effusion, increased from 7 days prior. Similarly, the small right pleural effusion as well as moderate to severe sized pericardial effusion is also worse from 7 days prior. Analysis of the abdominopelvic viscera is limited by the absence of intravenous contrast material. Solid Abdominal Organs: Hepatic periportal edema. No discrete hepatic focal lesions are identified, however evaluation is limited by image noise and inherently poor resolution of this noncontrast exam. Modestly distended gallbladder with sludge, not appearing acutely inflamed. The spleen is moderately enlarged at 16 cm AP oblique long axis. Grossly unremarkable pancreas. No suspicious adrenal gland nodules. Relatively small for age kidneys, measuring 8-9 cm in long axis. There is a right lower polar endophytic cystic renal lesion measuring 23 mm with suggestion of internal borderline thick septations, suboptimally evaluated without contrast. GI Tract/Mesentery/Peritoneum: Feeding tube tip terminating within the distal gastric antrum. There is significant change in caliber of the duodenum at the level of the mid transverse segment on 3:195, nonspecific but can be seen in patients with SMA syndrome for which clinical correlation may be sought. Ingested oral contrast opacifies the distal small bowel as well as proximal large bowel. The small bowel is within normal limits by caliber. The ascending and transverse colonic segments are however slightly dilated measuring up to 8.5 cm in diameter. No obvious focal stricture or mass is identified at the level of the caliber transition at the splenic flexure, however evaluation is suboptimal due to high degree of image noise. Pelvic Viscera: Catheter decompressed urinary bladder. Grossly unremarkable appearance of the prostate and seminal vesicles. Lymph Nodes/Vasculature: No convincingly suspicious adenopathy within the limits of this exam. Moderate calcific atherosclerosis of the aortoiliac vasculature without aneurysmal change. Free Fluid: Large volume ascites. Musculoskeletal and Body Wall: Diffuse body wall edema. Moderate multilevel spondylosis. Procedure Note Edilia Louie MD - 08/07/2024 CLINICAL INDICATION: Bowel obstruction suspected TECHNIQUE: Multiple axial CT images were obtained from lung bases through pubicsymphysis without the administration of IV contrast. Reformatted images inthe coronal and sagittal planes were generated from the axial data set tofacilitate diagnostic accuracy. Total DLP (Dose-Length Product): 1635 mGy*cm. Please note: The reportedvalue represents the total of one or more individual components during theCT acquisition on this date and at this time, and as such, the same valuemay appear in more than one CT report depending on theinterpreting/reporting physicians. COMPARISON: Abdominal radiograph [address] 07/31/2024 FINDINGS: Lower Chest: Moderate and somewhat lobulated appearing left pleuraleffusion, increased from 7 days prior. Similarly, the small right pleuraleffusion as well as moderate to severe sized pericardial effusion is alsoworse from 7 days prior. Analysis of the abdominopelvic viscera is limited by the absence ofintravenous contrast material. Solid Abdominal Organs: Hepatic periportal edema. No discrete hepaticfocal lesions are identified, however evaluation is limited by image noiseand inherently poor resolution of this noncontrast exam. Modestlydistended gallbladder with sludge, not appearing acutely inflamed. Thespleen is moderately enlarged at 16 cm AP oblique long axis. Grosslyunremarkable pancreas. No suspicious adrenal gland nodules. Relativelysmall for age kidneys, measuring 8-9 cm in long axis. There is a rightlower polar endophytic cystic renal lesion measuring 23 mm with suggestionof internal borderline thick septations, suboptimally evaluated withoutcontrast. GI Tract/Mesentery/Peritoneum: Feeding tube tip terminating within thedistal gastric antrum. There is significant change in caliber of theduodenum at the level of the mid transverse segment on 3:195, nonspecificbut can be seen in patients with SMA syndrome for which clinicalcorrelation may be sought. Ingested oral contrast opacifies the distalsmall bowel as well as proximal large bowel. The small bowel is withinnormal limits by caliber. The ascending and transverse colonic segmentsare however slightly dilated measuring up to 8.5 cm in diameter. Noobvious focal stricture or mass is identified at the level of the calibertransition at the splenic flexure, however evaluation is suboptimal due tohigh degree of image noise. Pelvic Viscera: Catheter decompressed urinary bladder. Grosslyunremarkable appearance of the prostate and seminal vesicles. Lymph Nodes/Vasculature: No convincingly suspicious adenopathy within thelimits of this exam. Moderate calcific atherosclerosis of the aortoiliacvasculature without aneurysmal change. Free Fluid: Large volume ascites. Musculoskeletal and Body Wall: Diffuse body wall edema. Moderatemultilevel spondylosis. IMPRESSION: No evidence of bowel obstruction. There is nonspecific caliber dilatationof the ascending and transverse colonic segments that could represent anelement of ileus. Worsening pleural and pericardial effusions. The pericardial effusion isnow moderate to severe. CRITICAL RESULT: No. COMMUNICATION: Per this written report. Drafted by Edilia Louie MD on 08/07/2024 12:21 PM Final report signed by Edilia Louie MD on 08/07/2024 12:57 PM Iglesia Hutchins MD IMG CT PROCEDURES Final Resu lt * [place] CRITICAL CARE, E/M 30-74 MINUTES (08/07/2024 8:12 AM EDT) Narrative Iglesia Hutchins MD - 08/07/2024 8:12 AM EDT Iglesia Hutchins MD 08/07/2024 4:08 PM Critical Care Performed by: Iglesia Hutchins MD Authorized by: Iglesia Hutchins MD Critical care provider statement: Critical care time (minutes): 37 Critical care time was exclusive of: Separately billable procedures and treating other patients and teaching time Critical care was time spent personally by me on the following activities: Development of treatment plan with patient or surrogate, discussions with consultants, discussions with primary provider, evaluation of patient's response to treatment, examination of patient, obtaining history from patient or surrogate, ventilator management, review of old charts, ordering and review of radiographic studies, ordering and review of laboratory studies and ordering and performing treatments and interventions I assumed subsequent critical care for this patient from a provider in my division, on the same day: no Critical care statement: I saw and evaluated the patient with the resident/ fellow. I discussed the case with the resident/ fellow and agree with the findings and plan as documented. Comments: 44 YO M with a history of ESRD, substance use disorder who presented with acute hypoxic respiratory failure in the setting of hypervolemia, subsequently progressing to need for intubation followed by the development of hypotension. Patient found to have MRSA bacteremia prompting removal of tunneled HD line; have been holding HD while treating bacteremia until clearance is documented. This AM, his pericardial effusion appears enlarged, and while underlying etiology is unclear, uremic pericarditis is a consideration. Cardiology tentatively planning for pericardiocentesis this PM. This development has increased the urgency of resuming renal replacement therapy, and will place a temporary trialysis catheter today with the intention to resume renal replacement therapy. Do not anticipate consideration for extubation until volume optimization. Also noted to have significant bowel distention, though no evidence of obstruction on cross sectional imaging and this is suspected to represent ileus. us Iglesia Hutchins MD IN CLINIC/BEDSIDE ORDERABLES Final Result * (ABNORMAL) Triglycerides (08/07/2024 5:13 AM EDT) Only the most recent of2 resultswithin the time period is included. Triglycerides, Plasma 319(H) <150 mg/dL 08/07/2024 5:54 AM EDT [facility] Comment: Triglyceride Reference Range (age >17 years): Desirable: <150 mg/dL Borderline high: 150 to 199 mg/dL High: 200 to 499 mg/dL Very high: >499 mg/dL Increased risk of pancreatitis: >1000 mg/dL Fasting greater than or equal to 12 hours? No 08/07/2024 5:54 AM EDT [facility] Blood Arterial blood specimen / Unknown Venipuncture / Unknown 08/07/2024 5:13 AM EDT 08/07/2024 5:25 AM EDT us Oleg Jara DO LAB BLOOD ORDERABLES Final Resu lt [facility] [address] [place] [address] * [place] ABDOM PARACENTESIS DX/THER W IMAGING GUIDANCE, HC ABDOMINAL PARACENTESIS DIAGNOSIS/THERAPY W IMAGING GUIDANCE (08/06/2024 5:13 PM EDT) Anatomical Region Laterality Modality Other Narrative 08/06/2024 5:13 PM EDT Iglesia Hutchins MD 08/06/2024 5:47 PM Paracentesis Performed by: Ollie Mc DO Authorized by: Iglesia Hutchins MD Consent: Consent obtained: Written Consent given by: Patient Risks, benefits, and alternatives were discussed: yes Risks discussed: Bleeding, infection, bowel perforation and pain Alternatives discussed: Delayed treatment [place] protocol: Procedure explained and questions answered to patient or proxy's satisfaction: yes Relevant documents present and verified: yes Test results available: yes Imaging studies available: yes Required blood products, implants, devices, and special equipment available: yes Site/side marked: yes Immediately prior to procedure, a time out was called: yes Patient identity confirmed: Anonymous protocol, patient vented/unresponsive, arm band and hospital-assigned identification number Attending Supervision?: yes Pre-procedure details: Procedure purpose: Diagnostic Preparation: Patient was prepped and draped in usual sterile fashion Anesthesia: Anesthesia method: Local infiltration Local anesthetic: Lidocaine 1% WITH epi Procedure details: Needle gauge: 22 Ultrasound guidance: yes Puncture site: L lower quadrant Fluid removed amount: 950cc Fluid appearance: Yellow and clear Dressing: Adhesive bandage and 4x4 sterile gauze Post-procedure details: Procedure completion: Tolerated well, no immediate complications Iglesia Hutchins MD IN CLINIC/BEDSIDE ORDERABLES Final Result * Albumin - Ascites (08/06/2024 4:54 PM EDT) Albumin, Peritoneal Fluid 1.2 g/dL 08/06/2024 8:14 PM EDT [facility] Ascites Peritoneal cavity structure / Unknown 08/06/2024 4:54 PM EDT 08/06/2024 5:10 PM EDT Narrative [facility] - 08/06/2024 8:14 PM EDT REPORTING RESULTS Reference Values: No established reference interval. Results should be interpreted in comparison to the concentration in blood and in conjunction with the clinical context. This test was developed and its performance characteristics determined by [facility]. The U.S. Food and Drug Administration has not approved or cleared this test; however, FDA clearance or approval is not currently required for clinical use. The results are not intended to be used as the sole means for clinical diagnosis or patient management decisions. Iglesia Hutchins MD LAB BODY FLUIDS AND STOOLS O RDERABLES Final Result Performing Organization Address [facility] de Phone Number [facility] [address] [place] [address] * Protein - Ascites (08/06/2024 4:54 PM EDT) Total Protein, Fluid 2.4 g/dL 08/06/2024 8:14 PM EDT [facility] Ascites Peritoneal cavity structure / Unknown 08/06/2024 4:54 PM EDT 08/06/2024 5:10 PM EDT Narrative [facility] - 08/06/2024 8:14 PM EDT This test was developed and its performance characteristics determined by [facility]. The U.S. Food and Drug Administration has not approved or cleared this test. However, FDA clearance or approval is not currently required for clinical use. The results are not intended to be used as the sole means for clinical diagnosis or patient management decisions. Iglesia Hutchins MD LAB BODY FLUIDS AND STOOLS O RDERABLES Final Result Performing Organization Address [facility] Phone Number [facility] [address] [place] [address] * LDH - Ascites (08/06/2024 4:54 PM EDT) LDH, Fluid 146 U/L 08/06/2024 8:14 PM EDT [facility] Ascites Peritoneal cavity structure / Unknown 08/06/2024 4:54 PM EDT 08/06/2024 5:10 PM EDT Narrative [facility] - 08/06/2024 8:14 PM EDT No established reference interval. Results should be interpreted in comparison to the concentration in blood and in conjunction with the clinical context. Peritoneal fluid LDH may be useful in differentiating secondary bacterial peritonitis (GI perforation) from spontaneous bacterial peritonitis when at least 2 of 3 of the following is met: 1) Total protein > 1g/dL; 2) LDH >upper limit of normal for plasma; 3) Glucose < 50 mg/dL. Iglesia Hutchins MD LAB BODY FLUIDS AND STOOLS O RDERABLES Final Result Performing Organization Address [facility] de Phone Number [facility] [address] [place] [address] * Glucose - Ascites (08/06/2024 4:54 PM EDT) Glucose, Fluid 103 mg/dL 08/06/2024 8:14 PM EDT [facility] Ascites Peritoneal cavity structure / Unknown 08/06/2024 4:54 PM EDT 08/06/2024 5:10 PM EDT Narrative [facility] - 08/06/2024 8:14 PM EDT Peritoneal/Ascites No established reference interval. Results should be interpreted in comparison to the concentration in blood and in conjunction with the clinical context. Normal peritoneal fluid glucose is similar to serum concentrations. Decreased ascitic fluid to serum glucose ratios can occur with bacterial peritonitis. Secondary peritonitis is likely if 2 of 3 of the following is met in peritoneal fluid: 1) Total protein > 1g/dL; 2) LDH >upper limit of normal for plasma; 3) Glucose < 50 mg/dL. Iglesia Hutchins MD LAB BODY FLUIDS AND STOOLS O RDERABLES Final Result Performing Organization Address [facility] de Phone Number [facility] [address] [place] [address] * [place] CRITICAL CARE, E/M 30-74 MINUTES (08/06/2024 12:09 PM EDT) Narrative Iglesia Hutchins MD - 08/06/2024 12:09 PM EDT Iglesia Hutchins MD 08/07/2024 4:02 PM Critical Care Performed by: Iglesia Hutchins MD Authorized by: Iglesia Hutchins MD Critical care provider statement: Critical care time (minutes): 39 Critical care time was exclusive of: Separately billable procedures and treating other patients and teaching time Critical care was time spent personally by me on the following activities: Development of treatment plan with patient or surrogate, discussions with consultants, discussions with primary provider, evaluation of patient's response to treatment, examination of patient, obtaining history from patient or surrogate, ventilator management, review of old charts, ordering and review of radiographic studies, ordering and review of laboratory studies and ordering and performing treatments and interventions I assumed subsequent critical care for this patient from a provider in my division, on the same day: no Critical care statement: I saw and evaluated the patient with the resident/ fellow. I discussed the case with the resident/ fellow and agree with the findings and plan as documented. Comments: 44 YO M with a history of ESRD, substance use disorder who presented with acute hypoxic respiratory failure in the setting of hypervolemia, subsequently progressing to need for intubation followed by the development of hypotension. Patient found to have MRSA bacteremia prompting removal of tunneled HD line; have been holding HD while treating bacteremia until clearance is documented. Will continue to temporize volume status with diuretics. Do not anticipate consideration for extubation until after resumption of iHD and volume optimization. Underwent endoscopy 08/05 demonstrating esophagitis and duodenal ulcer. Will obtain diagnostic paracentesis today, continue fluconazole for presumed candidal esophagitis. us Iglesia Hutchins MD IN CLINIC/BEDSIDE ORDERABLES Final Result * EGD CLEOPATRA CHEN; 08/05/2024 (08/06/2024 9:27 AM EDT) Anatomical Region Laterality Modality Endoscopy Narrative 08/06/2024 9:27 AM EDT Table formatting from the original result was not included. Impression: Grade D esophagitis/severe erosive esophagitis with multiple mucosal breaks measuring 5 mm or more, continuous between folds, covering 75% or more of the circumference appearing edematous, friable, hemorrhagic and ulcerated with erosions in the middle third of the esophagus and lower third of the esophagus. White plaques suggestive of germán esophagitis in the middle third of the esophagus Medium hiatal hernia without Ramin lesions present The stomach appeared normal. Single 8 mm cratered ulcer in the duodenal bulb with adherent clot (Stephon IIB) with underlying nonbleeding visible vessel. used cap device to facilitate visualization/stability given location of ulcer, injected 3 mL of epinephrine to address bleeding; induced coagulation and hemostasis achieved with bipolar cautery( gold probe); hemostasis achieved, Mild, localized abnormal mucosa with erosions in the 2nd part of the duodenum Post Procedure Diagnosis None Recommendations - Recommend empiric treatment for Germán esophagitis with fluconazole - Continue PPI IV twice daily, switch to PO when able for total of 6 weeks - Check H pylori stool antigen and treat if positive - Discontinue octreotide as there was no evidence of varices - Continue antibiotics - Continue to monitor H&H closely and transfuse as needed - Findings communicated to the primary team and discussed with patient's father over the phone - Repeat EGD in 8 weeks Indication Gastrointestinal hemorrhage, unspecified gastrointestinal hemorrhage type Medications See anesthesia record for anesthesia administered medications. Staff Staff Role Cleopatra Chen MD Proceduralist Dk Rose MD GI fellow Preprocedure A history and physical has been performed, and patient medication allergies have been reviewed. The patient's tolerance of previous anesthesia has been reviewed. The risks and benefits of the procedure and the sedation options and risks were discussed with the patient. All questions were answered and informed consent obtained. Details of the Procedure The patient underwent general anesthesia, which was administered by an rn spine. The patient's blood pressure, heart rate, level of consciousness, oxygen saturation and respirations were monitored throughout the procedure. The scope was introduced through the mouth and advanced to the second part of the duodenum. Retroflexion was performed in the cardia. The patient experienced no blood loss. The procedure was moderately difficult due to difficult and unstable location of duodenal bulb ulcer in duodenal sweep; stability/visualization improved with use of a cap. The patient tolerated the procedure well. There were no apparent adverse events. Attestation I was present for the entire procedure Specimens No specimens were documented in this log. Findings Grade D esophagitis with multiple mucosal breaks measuring 5 mm or more, continuous between folds, covering 75% or more of the circumference appearing edematous, friable, hemorrhagic and ulcerated with erosion in the middle third of the esophagus and lower third of the esophagus. White plaques suggestive of germán esophagitis in the middle third of the esophagus Medium hiatal hernia without Ramin lesions present The stomach appeared normal. Single 8 mm cratered ulcer in the duodenal bulb with nonbleeding visible vessel (Stephon IIA); induced coagulation and hemostasis achieved with bipolar cautery; injected 3 mL of epinephrine to address bleeding; hemostasis achieved Mild, localized abnormal mucosa with erosion in the 2nd part of the duodenum Iglesia Hutchins MD GI PROCEDURE ORDERABLES Estefany l Result * Blood Culture (Aerobic/Anaerobet Set) (08/05/2024 6:41 PM EDT) Only the most recent of6 resultswithin the time period is included. Culture No growth at day 5 BRANDI 08/10/2024 7:01 PM EDT [facility] Blood Structure of right wrist region / Unknown Venipuncture / Unknown 08/05/2024 6:41 PM EDT 08/05/2024 6:54 PM EDT Iglesia Hutchins MD LAB MICROBIOLOGY - GENERAL O RDERABLES Final Result Performing Organization Address City/[facility]/ZIP Co de Phone Number [facility] [address] [place] [address] * TEG Global Hemostasis with Lysis (08/05/2024 12:00 PM EDT) R, Lysis 7.3 4.6 - 9.1 min 08/05/2024 2:06 PM EDT [facility] MA, Rapid, Lysis 64.8 52.0 - 70.0 mm 08/05/2024 2:06 PM EDT [facility] MA, Fibrinogen, Lysis 25.0 15.0 - 32.0 mm 08/05/2024 2:06 PM EDT [facility] LY30 0.0 0.0 - 2.6 % 08/05/2024 2:06 PM EDT [facility] Blood Arterial blood specimen / Unknown Venipuncture / Unknown 08/05/2024 12:00 PM EDT 08/05/2024 1:07 PM EDT Iglesia Hutchins MD LAB BLOOD ORDERABLES Final R esult Performing Organization Address City/[facility]/ZIP Co de Phone Number [facility] [address] [place] [address] * [place] CRITICAL CARE, E/M 30-74 MINUTES (08/05/2024 11:10 AM EDT) Iglesia Murphy MD - 08/05/2024 11:10 AM EDT Iglesia Hutchins MD 08/06/2024 3:10 PM Critical Care Performed by: Iglesia Hutchins MD Authorized by: Iglesia Hutchins MD Critical care provider statement: Critical care time (minutes): 37 Critical care time was exclusive of: Separately billable procedures and treating other patients and teaching time Critical care was time spent personally by me on the following activities: Development of treatment plan with patient or surrogate, discussions with consultants, discussions with primary provider, evaluation of patient's response to treatment, examination of patient, obtaining history from patient or surrogate, ventilator management, review of old charts, ordering and review of radiographic studies, ordering and review of laboratory studies and ordering and performing treatments and interventions I assumed subsequent critical care for this patient from a provider in my division, on the same day: no Critical care statement: I saw and evaluated the patient with the resident/ fellow. I discussed the case with the resident/ fellow and agree with the findings and plan as documented. Comments: 44 YO M with a history of ESRD, substance use disorder who presented with acute hypoxic respiratory failure in the setting of hypervolemia, subsequently progressing to need for intubation followed by the development of hypotension. Patient found to have MRSA bacteremia prompting removal of tunneled HD line; have been holding HD while treating bacteremia until clearance is documented. Will continue to temporize volume status with diuretics. Do not anticipate consideration for extubation until after resumption of iHD and volume optimization. Notably, overnight had an acute drop in Hgb to 5.5 with associated bloody appearing output from NG tube and have engaged GI who will perform endoscopy to further evaluate. Presumptively treating for variceal bleed given cirrhotic appearing liver parenchyma on imaging. Iglesia Hutchins MD IN CLINIC/BEDSIDE ORDERABLES Final Result * (ABNORMAL) Multi Drug Resistance Test (08/04/2024 5:45 PM EDT) Only the most recent of2 resultswithin the time period is included. Culture Methicillin-Resist ant Staphylococcus aureus(AA) 08/06/2024 7:10 AM EDT [facility] Comment:Previously isolated, still present in culture. Swab (Nares and Annetta Rectal) 08/04/2024 5:45 PM EDT 08/04/2024 6:14 PM EDT Narrative [facility] - 08/06/2024 7:10 AM EDT This test was developed and its performance characteristics determined by the [facility]. Although the media is FDA-approved, it is not FDA-approved for all specimen types submitted. The FDA has determined that such clearance or approval is not necessary. This test is used for surveillance purposes. It should not be regarded as investigational or for research. The [facility] is certified under the Clinical Laboratory Improvement Amendments of 1988 (CLIA-88) as qualified to perform high complexity clinical laboratory testing. us Popeye Fernando MD LAB MICROBIOLOGY - GEN ERAL ORDERABLES Final Result [facility] [address] [place] [address] * [place] INSERT NON-TUNNEL CV CATH, HC INSERT NON-TUNNEL CV CATH, CVC SINGLE LUMEN (SMARTFORM LINK) (08/04/2024 4:20 PM EDT) Narrative Iglesia Hutchins MD - 08/04/2024 4:20 PM EDT Iglesia Hutchins MD 08/05/2024 3:46 PM Central Line Performed by: Fiordaliza Cleary MD Authorized by: Iglesia Hutchins MD Consent: Consent obtained: Emergent situation [place] protocol: Procedure explained and questions answered to patient or proxy's satisfaction: yes Relevant documents present and verified: yes Test results available: yes Imaging studies available: yes Required blood products, implants, devices, and special equipment available: yes Site/side marked: yes Immediately prior to procedure, a time out was called: yes Patient identity confirmed: Arm band and hospital-assigned identification number Attending Supervision?: no Pre-procedure details: Indication(s): central venous access Hand hygiene: Hand hygiene performed prior to insertion Sterile barrier technique: All elements of maximal sterile technique followed Skin preparation: Chlorhexidine with alcohol Skin preparation agent: Skin preparation agent completely dried prior to procedure Sedation: Sedation type: Deep Anesthesia: Anesthesia method: Local infiltration Local anesthetic: Lidocaine 2% WITH epi Procedure details: Location: L internal jugular Site selection rationale: Potential need for future dialysis Patient position: Supine Procedural supplies: Single lumen Catheter size: 7 Fr Landmarks identified: yes Ultrasound guidance: yes Sterile ultrasound techniques: Sterile gel and sterile probe covers were used Number of attempts: 1 Successful placement: yes Post-procedure details: Post-procedure: Dressing applied and line sutured Assessment: Blood return through all ports, no pneumothorax on x-ray, placement verified by x-ray and free fluid flow Procedure completion: Tolerated well, no immediate complications Iglesia Hutchins MD IN CLINIC/BEDSIDE ORDERABLES Final Result * [place] CRITICAL CARE, E/M 30-74 MINUTES (08/04/2024 1:23 PM EDT) Narrative Iglesia Hutchins MD - 08/04/2024 1:23 PM EDT Iglesia Hutchins MD 08/06/2024 2:52 PM Critical Care Performed by: Iglesia Hutchins MD Authorized by: Iglesia Hutchins MD Critical care provider statement: Critical care time (minutes): 34 Critical care time was exclusive of: Separately billable procedures and treating other patients and teaching time Critical care was time spent personally by me on the following activities: Development of treatment plan with patient or surrogate, discussions with consultants, discussions with primary provider, evaluation of patient's response to treatment, examination of patient, obtaining history from patient or surrogate, ventilator management, review of old charts, ordering and review of radiographic studies, ordering and review of laboratory studies and ordering and performing treatments and interventions I assumed subsequent critical care for this patient from a provider in my division, on the same day: no Critical care statement: I saw and evaluated the patient with the resident/ fellow. I discussed the case with the resident/ fellow and agree with the findings and plan as documented. Comments: 44 YO M with a history of ESRD, substance use disorder who presented with acute hypoxic respiratory failure in the setting of hypervolemia, subsequently progressing to need for intubation followed by the development of hypotension. Patient found to have MRSA bacteremia prompting removal of tunneled HD line; have been holding HD while treating bacteremia until clearance is documented. Will continue to temporize volume status with diuretics. Do not anticipate consideration for extubation until after resumption of iHD and volume optimization. Iglesia Hutchins MD IN CLINIC/BEDSIDE ORDERABLES Final Result * (ABNORMAL) Beta Glucan (Fungitel), Serum (08/04/2024 11:24 AM EDT) Beta Glucan (Fungitell) 165(H) <80 pg/mL 08/05/2024 5:30 PM EDT [facility] ([facility]) Comment: SPECIMEN SUBMITTED WAS LIPEMIC. HIGH CONCENTRATIONS OF TRIGLYCERIDES HAVE BEEN REPORTED IN THE PEER REVIEWED SCIENTIFIC LITERATURE TO INHIBIT B-D-GLUCAN DETECTION WHICH POTENTIALLY MAY CAUSE UNDER-QUANTIFICATION AND POSSIBLY FALSE NEGATIVE RESULTS (J. CLIN. MICROBIOL. 43:595). INTERPRET RESULTS WITH CAUTION. ADDITIONAL TESTING WITH A NEW SAMPLE IS RECOMMENDED. Interpretation: The Fungitell assay does not detect certain fungal species such as the genus Cryptococcus (Daniela et al. 1991) which produces very low levels of (1-3)-Zgxq-B-Frebfh. The assay also does not detect the Zygomycetes such as Absidia, Mucor and Rhizopus (Flavia et al. 1994) which are not known to produce (1-3)-Dgnp-Z-Ftejvb. In addition, the yeast phase of Blastomyces dermatitidis produces little (1-3)-Xlrf-Y-Kdgljj and may not be detected by the assay (Alvaro et al. 2007). Reference Range: Less than 60 pg/mL. Glucan values of less than 60 pg/mL are interpreted as negative. Glucan values of 60 to 79 pg/mL are interpreted as indeterminate, and suggest a possible fungal infection. Additional sampling and testing of sera is required to interpret the results. Glucan values of greater than or equal to 80 pg/mL are interpreted as positive. Due to the potential for environmental contamination when transferred to pour-off tubes, which can lead to false positive results, interpret positive results from samples provided in pour-off tubes with caution. Results should be used in conjunction with clinical findings, and should not form the sole basis for a diagnosis or treatment decision. The [employer] test is approved or cleared for in vitro diagnostic use by the U.[place] Food and Drug Administration. Modifications to the approved package insert have been made and the performance characteristics for these modifications were determined by [employer]. If sample result is greater than 500 pg/mL, physician may order a titer of the sample. Please contact [employer] if you would like to order a retest of this sample to obtain an actual value. Samples are held for 1 week after initial testing date. Testing Performed at: [facility] [address] [place] [address] Director: Oscar Salter, PhD JESENIA (ABB) IA # [id number] FLAG Interpretation: A = Abnormal, H = High, L = Low Blood Venous blood specimen / Unknown Venipuncture / Unknown 08/04/2024 11:24 AM EDT 08/04/2024 11:36 AM EDT Narrative BRITTNI MENA) - 08/05/2024 5:30 PM EDT Release to patient in [facility]->Immediate us Iglesia Hutchins MD LAB BLOOD ORDERABLES Final R esult BRITTNI MENA) * (ABNORMAL) Blood gas panel, arterial (08/04/2024 8:18 AM EDT) pH, Arterial 7.39 7.35 - 7.45 LAB HEMATOLOGY METHOD 08/04/2024 8:32 AM EDT [facility] pCO2, Arterial 41 32 - 45 mmHg LAB HEMATOLOGY METHOD 08/04/2024 8:32 AM EDT [facility] pO2, Arterial 141(H) 83 - 108 mmHg LAB HEMATOLOGY METHOD 08/04/2024 8:32 AM EDT [facility] SO2, Measured, Arterial 100(H) 94 - 98 % LAB HEMATOLOGY METHOD 08/04/2024 8:32 AM EDT [facility] Base Excess, Arterial -0.4 -2.0 - 3.0 mmol/L LAB HEMATOLOGY METHOD 08/04/2024 8:32 AM EDT [facility] Bicarbonate, Calculated, Arterial 25 22 - 26 mmol/L LAB HEMATOLOGY METHOD 08/04/2024 8:32 AM EDT [facility] Hematocrit, Whole Blood 19.0(LL) 40.0 - 51.0 % LAB HEMATOLOGY METHOD 08/04/2024 8:32 AM EDT [facility] Sodium, Whole Blood 139 136 - 145 mmol/L LAB HEMATOLOGY METHOD 08/04/2024 8:32 AM EDT [facility] Potassium, Whole Blood 3.9 3.6 - 4.9 mmol/L LAB HEMATOLOGY METHOD 08/04/2024 8:32 AM EDT [facility] Chloride, Whole Blood 96(L) 97 - 107 mmol/L LAB HEMATOLOGY METHOD 08/04/2024 8:32 AM EDT [facility] Glucose, Whole Blood 121(H) 74 - 99 mg/dL LAB HEMATOLOGY METHOD 08/04/2024 8:32 AM EDT [facility] Ionized Calcium, Whole Blood 4.0(L) 4.6 - 5.1 mg/dL LAB HEMATOLOGY METHOD 08/04/2024 8:32 AM EDT [facility] Lactate, Arterial, Whole Blood 0.7 0.5 - 1.6 mmol/L LAB HEMATOLOGY METHOD 08/04/2024 8:32 AM EDT [facility] Blood Arterial blood specimen / Unknown Arterial Puncture / Unknown 08/04/2024 8:18 AM EDT 08/04/2024 8:25 AM EDT us Oleg Jara DO LAB BLOOD ORDERABLES Final Resu lt Performing Organization Address City/State/[facility] Co de Phone Number [facility] [address] [place] [address] * BEDSIDE BRONCHOSCOPY (08/04/2024 5:32 AM EDT) Narrative Nikko Jamison MD - 08/04/2024 5:32 AM EDT Nikko Jamison MD 08/04/2024 5:37 AM Bronchoscopy Performed by: Pascual Coombs DO Authorized by: Oleg Jara DO Consent: Consent obtained: Written and emergent situation Consent given by: Patient and parent Timeout: Immediately prior to procedure, a time out was called: yes Patient identity confirmed: Arm band Attending Supervision?: yes Sedation: Sedation: Continuous IV sedation being administered. No additional sedation given during procedure Trained Observer (Nurse) present: Yes Oxygen Saturation, Heart Rate, and Blood Pressure Monitored: Yes Procedure details: : aspiration and hypoxia. This procedure was performed by: Corin and assisted by: Leti on: 08/04/2024 Was cervical spine stabilized during the procedure?: No A cleaned bronchoscope was inserted via: Endotracheal tube A stat portable chest xray was ordered Post-procedure details: The procedure was performed: Without difficulty Patient tolerance of procedure: Tolerated well, no immediate complications Comments: Therapeutic bronchoscope passed through ETT Copious, thick brown secretions consistent with gastric contents present in trachea and right and left main bronchi that was aspirated. ETT measured 2 cm deep, retracted, remeasured All airways inspected. There was plugging with gastric contents in the lingula and right lower posterior and medial segments that was suctioned, aspirated, and again suctioned There was no bleeding and tissue was non-friable Oleg Jara DO IN CLINIC/BEDSIDE ORDERABLES Fi nal Result * INTUBATION (08/04/2024 4:47 AM EDT) Nikko Douglas MD - 08/04/2024 4:47 AM EDT Nikko Jamison MD 08/04/2024 4:50 AM Intubation Date/Time: 08/04/2024 4:47 AM Performed by: Jose Landeros DO Authorized by: Oleg Jara DO Consent: Consent obtained: Emergent situation [place] protocol: Patient identity confirmed: Hospital-assigned identification number Attending Supervision?: yes Pre-procedure details: Indications: airway protection and respiratory distress Patient status: Awake Pharmacologic strategy: RSI Induction agents: Etomidate Paralytics: Rocuronium Procedure details: Preoxygenation: Nonrebreather mask CPR in progress: no Number of attempts: 1 Successful intubation attempt details: Intubation method: Oral Intubation technique: video assisted Laryngoscope blade: Hypercurved Bougie used: no Tube size (mm): 7.5 Tube type: Cuffed Tube visualized through cords: yes Placement assessment: ETT at teeth/gumline (cm): 24 Placement verification: direct visualization and tube exhalation Post-procedure details: Procedure completion: Tolerated Oleg Jara DO IN CLINIC/BEDSIDE ORDERABLES Fi nal Result * KS CRITICAL CARE, E/M 30-74 MINUTES (08/03/2024 10:38 AM EDT) Oleg Wallace DO - 08/03/2024 10:38 AM EDT Oleg Jara DO 08/03/2024 11:10 AM Critical Care Performed by: Jeanmarie Arrieta MD Authorized by: Oleg Jara DO Critical care provider statement: Critical care time (minutes): 35 Critical care time was exclusive of: Separately billable procedures and treating other patients and teaching time Critical care was time spent personally by me on the following activities: Discussions with consultants, evaluation of patient's response to treatment, examination of patient, ordering and review of laboratory studies, ordering and review of radiographic studies and ventilator management Critical care statement: I saw and evaluated the patient with the resident/ fellow. I discussed the case with the resident/ fellow and agree with the findings and plan as documented. Oleg Jara DO IN CLINIC/BEDSIDE ORDERABLES Fi nal Result * (ABNORMAL) Troponin T, High Sensitivity, 2 Hour, Plasma (08/03/2024 9:00 AM EDT) Only the most recent of2 resultswithin the time period is included. Troponin T, High Sensitivity, 2 Hour 365(H) <19 ng/L 08/03/2024 9:36 AM EDT [facility] Troponin Delta 223(H) <10 ng/L 08/03/2024 9:36 AM EDT [facility] Troponin Delta Interpretation Significant 08/03/2024 9:36 AM EDT [facility] Comment:Significant change i n Troponin observed (from baseline). Troponin values greater than the 99th%ile with a rising or falling pattern (a change of >= 10 ng/L between the baseline and 2 hour samples) highly suggests acute cardiac injury. Acute cardiac injury does not equate to acute myocardial infarction. Additional clinical criteria are necessary for the diagnosis of acute myocardial infarction. Blood Venous blood specimen / Unknown Venipuncture / Unknown 08/03/2024 9:00 AM EDT 08/03/2024 9:07 AM EDT us Lon Jara MD LAB BLOOD ORDERABLES Final Res ult [facility] [address] [place] [address] * ECHO, ADULT TRANSTHORACIC LIMITED (08/03/2024 8:38 AM EDT) Height 180.3 FLORESITA ISCV Weight 99.8 FLORESITA ISCV BSA 2.20 m2 FLORESITA ISCV LV EDV(MOD-4ch) 185 mL FLORESITA ISCV LV ESV(MOD4ch) 125 mL FLORESITA ISCV EF(MOD-sp4) 32 % FLORESITA ISCV TR Vmax 266.3 cm/s FLORESITA ISCV TR Max PG 28 mmHG FLORESITA ISCV RV s' Yakelin 12.0 cm/s FLORESITA ISCV TAPSE 17 mm FLORESITA ISCV RV base 42 mm FLORESITA ISCV RV Mid 37 mm FLORESITA ISCV RA MOD 4Ch 102 mL FLORESITA ISCV BRET 46 mL/m2 FLORESITA ISCV LV EDV(MOD-2ch) 229 mL FLORESITA ISCV EDV(MOD-bp) 207 mL FLORESITA ISCV LV ESV(MOD2ch) 163 mL FLORESITA ISCV EF(MOD-sp2) 29 % FLORESITA ISCV ESV(MOD-bp) 144 mL FLORESITA ISCV EF(MOD-bp) 30 % FLORESITA ISCV LVLs ap2 9.9 mm FLORESITA ISCV IVC Max Size 21 mm FLORESITA ISCV RVSP 36 mmHg FLORESITA ISCV RAP systole 8 mmHg FLORESITA ISCV LVIDd 57 mm FLORESITA ISCV IVSd 10 mm FLORESITA ISCV LVPWd 8 mm FLORESITA ISCV LV MASS(C)D 197 g FLORESITA ISCV [facility] CV ECHO LV MASS INDEX 90 g/m2 FLORESITA ISCV LV RWT 0.32 mm FLORESITA ISCV LVIDs 47 mm FLORESITA ISCV Anatomical Region Laterality Modality Echocardiography Narrative 08/03/2024 11:26 AM EDT There is a moderate circumferential pericardial effusion. Pericardial effusion contains echogenic structures. There is no echocardiographic evidence of cardiac tamponade. Evidence includes no chamber collapse. Compared to the most recently available prior study, and allowing for differences in image quality and technique, pericardial effusion appears larger. Left Ventricle Based on the linear dimension and/or 2D volumes, the left ventricle is normal in size. There is normal left ventricular myocardial thickness and mass. The left ventricular systolic function is severely reduced. The LVEF as measured by biplane volume is 30%. The diastolic function is abnormal but cannot be graded. There is global hypokinesis of the left ventricle. Right Ventricle The right ventricle is mildly dilated. The right ventricular systolic function is normal. The estimated global right ventricular systolic function based upon the TDI maximal systolic velocity is normal (>=9.5 cm/s). Right ventricular systolic pressure is mildly elevated (35-50mmHg). Right Atrium The right atrial volume index is severely increased (>46mL/m2). IVC/SVC Due to positive pressure ventilation, the right atrial pressure cannot be estimated. An assumed pressure of 8mmHg was used for calculations. Mitral Valve The mitral valve leaflets are normal in appearance with no evidence of mitral valve prolapse. There is mild mitral regurgitation. Tricuspid Valve There is mild tricuspid regurgitation. Pericardium There is a moderate circumferential pericardial effusion. Pericardial effusion contains echogenic structures. There is no echocardiographic evidence of cardiac tamponade. Evidence includes no chamber collapse. Extracardiac There are bilateral pleural effusions. Study Details A limited transthoracic echocardiogram using limited 2D imaging was performed. Height: 180.3 cm. Weight: 99.8 kg. BSA: 2.20 m2. Study Recommendation Compared to the most recently available prior study, and allowing for differences in image quality and technique, pericardial effusion appears larger. us Oleg Jara DO CV ECHO PROCEDURES Final Result * (ABNORMAL) POCT arterial blood gas gem (08/03/2024 7:46 AM EDT) Only the most recent of2 resultswithin the time period is included. pH, Arterial 7.40 7.35 - 7.45 08/03/2024 7:47 AM EDT [facility] pCO2, Arterial 31(L) 32 - 45 mm Hg 08/03/2024 7:47 AM EDT [facility] pO2, Arterial 159(H) 83 - 108 mm Hg 08/03/2024 7:47 AM EDT [facility] SO2, Arterial 99(H) 94 - 98 % 08/03/2024 7:47 AM EDT [facility] FIO2 100.0 % 08/03/2024 7:47 AM EDT [facility] Base Excess, Arterial -5.0(L) -2 - 3 mmol/L 08/03/2024 7:47 AM EDT [facility] HCO3, Arterial 19.2(L) 22 - 26 mmol/L 08/03/2024 7:47 AM EDT [facility] Total Hemoglobin, Arterial, Whole Blood 7.6(L) 13.7 - 17.5 g/dL 08/03/2024 7:47 AM EDT [facility] Hematocrit, Arterial 23.0(L) 40 - 51.0 % 08/03/2024 7:47 AM EDT [facility] Sodium, Arterial 135(L) 136 - 145 mmol/L 08/03/2024 7:47 AM EDT [facility] Potassium, Arterial 3.9 3.6 - 4.9 mmol/L 08/03/2024 7:47 AM EDT [facility] Comment:Hemolyzed, result ma y be falsely increased. Chloride, Whole Blood 104 97 - 107 mmol/L 08/03/2024 7:47 AM EDT [facility] Glucose, Arterial 103(H) 74 - 99 mg/dL 08/03/2024 7:47 AM EDT [facility] Ionized Calcium, Arterial 4.0(L) 4.6 - 5.1 mg/dL 08/03/2024 7:47 AM EDT [facility] Lactate, Arterial 0.8 0.5 - 1.6 mmol/L 08/03/2024 7:47 AM EDT [facility] Body Temperature 36.7 Celsius 08/03/2024 7:47 AM EDT [facility] pH, Temp Corrected, Arterial 7.40 7.35 - 7.45 08/03/2024 7:47 AM EDT [facility] pCO2, Temp Corrected, Arterial 31(L) 32 - 45 mm Hg 08/03/2024 7:47 AM EDT [facility] pO2, Temp Corrected, Arterial 157(H) 83 - 108 mm Hg 08/03/2024 7:47 AM EDT [facility] Car Sweeper ID Evaristo Black 08/03/2024 7:47 AM EDT [facility] Blood, Arterial Whole blood specimen / Unknown 08/03/2024 7:46 AM EDT 08/03/2024 7:47 AM EDT us Oleg Jara DO LAB POINT OF CARE TE ST DOCKED DEVICE UNSOLICITED RESULTS Final Result [facility] [address] [place] [address] * [place] INSERT CATH,ART,PERCUT,SHORTTERM, HC INSERT CATH,ART,PERCUT,SHORTTERM (08/03/2024 7:01 AM EDT) Narrative Lon Jara MD - 08/03/2024 7:01 AM EDT Lon Jara MD 08/04/2024 7:29 AM Arterial line Performed by: Dylan Smith MBBS Authorized by: Oleg Jara DO Consent: Consent obtained: Emergent situation Consent given by: Patient Risks, benefits, and alternatives were discussed: yes Risks discussed: Bleeding, infection, ischemia, repeat procedure and pain [place] protocol: Procedure explained and questions answered to patient or proxy's satisfaction: yes Relevant documents present and verified: yes Test results available: yes Imaging studies available: yes Required blood products, implants, devices, and special equipment available: yes Site/side marked: yes Immediately prior to procedure, a time out was called: yes Patient identity confirmed: Arm band Attending Supervision?: yes Indications: Indications: hemodynamic monitoring and multiple ABGs Pre-procedure details: Skin preparation: Chlorhexidine Preparation: Patient was prepped and draped in sterile fashion Sedation: Sedation type: None Anesthesia: Anesthesia method: Local infiltration Local anesthetic: Lidocaine 1% w/o epi Procedure details: Location: L radial Needle gauge: 20 G Placement technique: Ultrasound guided Number of attempts: 1 Transducer: waveform confirmed Post-procedure details: Post-procedure: Secured with tape and sutured CMS: Unchanged Procedure completion: Tolerated us Oleg Jara DO IV THERAPY ORDERABLES Final Res ult * (ABNORMAL) Troponin T, High Sensitivity, 0 Hour Plasma, Reflex to 2 Hour (08/03/2024 6:44 AM EDT) Only the most recent of2 resultswithin the time period is included. Troponin T, High Sensitivity, 0 Hour 142(H) <19 ng/L 08/03/2024 7:19 AM EDT [facility] Blood Venous blood specimen / Unknown Venipuncture / Unknown 08/03/2024 6:44 AM EDT 08/03/2024 6:49 AM EDT us Lon Jara MD LAB BLOOD ORDERABLES Final Res ult [facility] [address] [place] [address] * [place] INSERT NON-TUNNEL CV CATH, HC INSERT NON-TUNNEL CV CATH, CVC TRIPLE LUMEN (SMARTFORM LINK) (08/03/2024 6:26 AM EDT) Narrative Lon Jara MD - 08/03/2024 6:26 AM EDT Lon Jara MD 08/03/2024 6:58 AM Central Line Performed by: Jose Landeros DO Authorized by: Lon Jara MD Consent: Consent obtained: Emergent situation [place] protocol: Patient identity confirmed: Hospital-assigned identification number Attending Supervision?: yes Pre-procedure details: Indication(s): central venous access Hand hygiene: Hand hygiene performed prior to insertion Sterile barrier technique: All elements of maximal sterile technique followed Skin preparation: Chlorhexidine Skin preparation agent: Skin preparation agent completely dried prior to procedure Sedation: Sedation type: Anxiolysis Anesthesia: Anesthesia method: None Procedure details: Location: R femoral Patient position: Supine Procedural supplies: Triple lumen Landmarks identified: yes Ultrasound guidance: yes Ultrasound guidance timing: prior to insertion and real time Sterile ultrasound techniques: Sterile gel and sterile probe covers were used Number of attempts: 1 Successful placement: yes Post-procedure details: Post-procedure: Dressing applied and line sutured Assessment: Blood return through all ports and free fluid flow Procedure completion: Tolerated us Lon Jara MD IN CLINIC/BEDSIDE ORDERABLES F inal Result * REMOVAL OF TUNNELED DIALYSIS CATHETER (08/01/2024 2:54 PM EDT) Narrative Bon Castro MD - 08/01/2024 2:54 PM EDT Bon Castro MD 08/02/2024 9:31 AM Removal of Tunneled Catheter Performed by: Rosie Charlton MD Authorized by: Oleg Jara DO Consent: Consent obtained: Verbal Consent given by: Parent and patient Risks, benefits, and alternatives were discussed: yes Risks discussed: Bleeding, infection, pain, poor cosmetic result, nerve damage and incomplete drainage Alternatives discussed: No treatment [place] protocol: Procedure explained and questions answered to patient or proxy's satisfaction: yes Relevant documents present and verified: yes Test results available: yes Site/side marked: yes Immediately prior to procedure, a time out was called: yes Patient identity confirmed: Verbally with patient and arm band Indications: Indications: Blood stream infection Pre-procedure details: Skin preparation: Chlorhexidine Preparation: Patient was prepped and draped in the usual sterile fashion Attending Supervision?: no Sedation: Sedation type: Anxiolysis Anesthesia: Anesthesia method: Local infiltration Local anesthetic: Lidocaine 1% w/o epi Post-procedure details: Procedure completion: Tolerated well, no immediate complications Dressinx4 sterile gauze Oleg Jara DO IN CLINIC/BEDSIDE ORDERABLES Fi nal Result * (ABNORMAL) Routine Culture and Gram Stain (08/01/2024 2:37 PM EDT) Culture Moderate Growth 8:27 AM EDT [facility] Culture Methicillin-Resista nt Staphylococcus aureus(AA) BRANDI 08/04/2024 8:27 AM EDT [facility] Comment: The organism value for this result has been updated. These results have been appended to the previously preliminary verified report. This is a corrected result. Previous organism was Staphylococcus species on 08/02/2024 at 1251 EDT. Edited result: Previously reported as Staphylococcus aureus on 08/03/2024 at 0755 EDT. Staphylococcus aureus has been updated to reportable. Gram Stain Result Rare Gram positive cocci in pairs(A) 08/04/2024 8:27 AM EDT [facility] Gram Stain Result No polymorphonuclear leukocytes seen(A) 08/04/2024 8:27 AM EDT [facility] Swab Topography unknown / Unknown Non-blood Collection / Unknown 08/01/2024 2:37 PM EDT 08/01/2024 3:00 PM EDT Narrative Organism Antibiotic Method Susceptibility Methicillin-Resistant Staphylococcus aureus Clindamycin BRANDI <=0.5 ug/ml: Susceptible Methicillin-Resistant Staphylococcus aureus Daptomycin BRANDI <=1 ug/ml: Susceptible Methicillin-Resistant Staphylococcus aureus Erythromycin BRANDI >4 ug/ml: Resistant Methicillin-Resistant Staphylococcus aureus Gentamicin BRANDI <=1 ug/ml: Susceptible Methicillin-Resistant Staphylococcus aureus Linezolid BRANDI <=1 ug/ml: Susceptible Methicillin-Resistant Staphylococcus aureus Minocycline BRANDI <=1 ug/ml: Susceptible Methicillin-Resistant Staphylococcus aureus Oxacillin BRANDI >2 ug/ml: Resistant Methicillin-Resistant Staphylococcus aureus Penicillin G BRANDI >1 ug/ml: Resistant Methicillin-Resistant Staphylococcus aureus Tetracycline BRANDI <=0.5 ug/ml: Susceptible Methicillin-Resistant Staphylococcus aureus Trimethoprim/Sulfamethoxa zole BRANDI <=0.5/9.5 ug/ml: Susceptible Methicillin-Resistant Staphylococcus aureus Vancomycin BRANDI 1 ug/ml: Susceptible Oleg Jara DO LAB MICROBIOLOGY - GENERAL ORDE [facility] [place] [address] * Surgical Pathology Exam (08/01/2024 2:37 PM EDT) Case Report Surgical Pathology Case: [id number] Authorizing Provider: Oleg Jara DO Collected: 08/01/2024 1437 Ordering Location: [facility] Inpatient Received: 08/01/2024 1532 Pathologist: Rosanna Chase MD Specimen: Chest, Right 08/05/2024 5:33 PM EDT [facility] Addendum GMS stain does not reveal definitive fungal organisms. Special Stain: A1-2 GMS IHC: There are no tasks to display for the given criteria. All controls show appropriate reactivity. All immunohistochemist ry, in situ hybridization, and histochemical tests were developed by and are performed at the [facility], [address] [place] [address]. All tests reported here, except those addressing HER2 (breast) and PD-L1 expression as predictive markers, have not been cleared by or approved by the US Food and Drug Administration (FDA). The FDA has determined that such clearance or approval is not necessary. The laboratory is regulated under CLIA as qualified to perform high-complexity testing. The tests are used for clinical purposes. They should not be regarded as investigational or for research. This assay has not been validated on decalcified tissues. Results should be interpreted with caution given the likelihood of false negativity on decalcified specimens. 08/05/2024 5:33 PM EDT [facility] Addendum electronically signed by Rosanna Chase MD on 08/05/2024 at 1733 EDT Final Diagnosis FIBRIN CLOT MATERIAL WITH ASSOCIATED BACTERIAL COLONIES, SPECIMEN SUBMITTED CHEST, RIGHT. 08/05/2024 5:33 PM EDT [facility] at 1310 EDT Comment Correlation with microbiologic findings is suggested. GMS stain for fungi is pending, and results will follow. 08/05/2024 5:33 PM EDT [facility] Clinical Information Tunneled dialysis line infection No Dx found. 08/05/2024 5:33 PM EDT [facility] Gross Description A. CHEST, RIGHT Received in formalin labeled chest, right is a portion of red-pink rubbery tissue measuring 1.5 x 1.3 x 0.9 cm. Farm [employer] sections are submitted in cassette A1. Cold Time: 55m Merlyn Akin Myrtle 08/05/2024 5:33 PM EDT [facility] Note: A resident was involved in the service. I attest I examined the relevant preparations for the specimens and confirmed the diagnosis or interpretation. 08/05/2024 5:33 PM EDT [facility] Tissue Thoracic structure / Unknown Non-blood Collection / Unknown 08/01/2024 2:37 PM EDT 08/01/2024 3:32 PM EDT Oleg Jara DO LAB PATHOLOGY ORDERABLES Edited Result - Final [facility] [address] [place] [address] * Chlamydia trachomatis by PCR (08/01/2024 10:24 AM EDT) Only the most recent of3 resultswithin the time period is included. Chlamydia trachomatis DNA PCR Result Not Detected Not Detected 08/03/2024 4:49 AM EDT [facility] Urine Urine specimen obtained by clean catch procedure / Unknown Non-blood Collection / Unknown 08/01/2024 10:24 AM EDT 08/01/2024 10:40 AM EDT Narrative [facility] - 08/03/2024 4:49 AM EDT This test is performed by the [employer] instrument for Real Time PCR C. trachomatis and N. gonorrhea. This test is FDA approved for use with endocervical, vaginal, and urine specimens. This test is used for clinical purposes. It should not be regarded as invesigational or for research. The [facility] is certified under the Clinical Laboratory Improvement Amendments of 1988 (CLIA-88) as qualified to perform high complexity clinical laboratory testing. [facility] MICROBIOLOGY - GENERAL ORDE RABLES Final Result Performing Organization Address [facility] Co de Phone Number [facility] [address] [place] [address] * Neisseria gonorrhea DNA by PCR (08/01/2024 10:24 AM EDT) Only the most recent of3 resultswithin the time period is included. Pathologist [facility] Neisseria gonorrhea DNA PCR Result Not Detected Not Detected. 08/03/2024 4:49 AM EDT [facility] Urine Urine specimen obtained by clean catch procedure / Unknown Non-blood Collection / Unknown 08/01/2024 10:24 AM EDT 08/01/2024 10:40 AM EDT Narrative [facility] - 08/03/2024 4:49 AM EDT This test is performed by the [employer] instrument for Real Time PCR C. trachomatis and N. gonorrhea. This test is FDA approved for use with endocervical, vaginal, and urine specimens. This test is used for clinical purposes. It should not be regarded as invesigational or for research. The [facility] Clinical Microbiology Laboratory is certified under the Clinical Laboratory Improvement Amendments of 1988 (CLIA-88) as qualified to perform high complexity clinical laboratory testing. [facility] Jara [facility] MICROBIOLOGY - GENERAL ORDE RABLES Final Result Performing Organization Address [facility] [place] [address] * Treponema Pallidum (Syphilis) Antibodies with Reflex to RPR and RPR Titer (Those with NO known Syphilis) (08/01/2024 9:13 AM EDT) Only the most recent of2 resultswithin the time period is included. Pathologist [facility] Syphilis Antibody (IgG+IgM) Nonreactive Nonreactive 08/01/2024 10:19 AM EDT [facility] Comment:Nonreactive. No sero logic evidence of syphilis. No follow-up necessary unless clinically indicated (e.g., early syphilis). Blood Venous blood specimen / Unknown Venipuncture / Unknown 08/01/2024 9:13 AM EDT 08/01/2024 9:28 AM EDT Oleg Jara LAB BLOOD ORDERABLES Final Resu lt Performing Organization Address [facility]/ZIP Co de Phone Number [facility] [address] [place] [address] * HIV 1 & 2 Antibody/Antigen Screen (08/01/2024 9:13 AM EDT) Only the most recent of2 resultswithin the time period is included. [facility] HIV 1 & 2 Antibody/Antigen Screen Non Reactive Non Reactive 08/01/2024 10:11 AM EDT [facility] Comment:Screening for HIV 1 & 2 antibodies, and P24 antigen is NONREACTIVE. No confirmatory testing is required. Blood Venous blood specimen / Unknown Venipuncture / Unknown 08/01/2024 9:13 AM EDT 08/01/2024 9:28 AM EDT Oleg Jara LAB BLOOD ORDERABLES Final Resu lt Performing Organization Address [facility] Co de Phone Number [facility] [address] [place] [address] * (ABNORMAL) Ionized calcium, serum (08/01/2024 12:21 AM EDT) [facility] Ionized Calcium, Serum 3.5(L) 4.6 - 5.3 mg/dL LAB HEMATOLOGY METHOD 08/01/2024 1:30 AM EDT [facility] Blood Venous blood specimen / Unknown Venipuncture / Unknown 08/01/2024 12:21 AM EDT 08/01/2024 12:39 AM EDT Aaron Manley MD LAB BLOOD ORDERABLES F inal Result Performing Organization Address City/[facility]/ZIP Co de Phone Number [facility] [address] [place] [address] * (ABNORMAL) Hepatitis C Virus (HCV) Quantitative PCR (07/31/2024 8:24 PM EDT) [facility] Hepatitis C Virus (HCV) Quantitative Interpretation Detected( A) Not Detected. 08/01/2024 10:42 PM EDT [facility] Hepatitis C Virus (HCV) Quantitative Viral Load Log Result 1.62 <1.08 log10 IU/mL 08/01/2024 10:42 PM EDT [facility] Hepatitis C Virus (HCV) Quantitative IU/mL Result 41 <12 IU/mL 08/01/2024 10:42 PM EDT [facility] Blood Venous blood specimen / Unknown Venipuncture / Unknown 07/31/2024 8:24 PM EDT 07/31/2024 8:43 PM EDT Narrative [facility] - 08/01/2024 10:42 PM EDT The V[employer]quez M2000 HCV test is a Real Time in vitro nucleic acid amplification test for the quantitation of Hepatitis C Viral (HCV) RNA in human serum in HCV-infected individuals. It is intended for use as an aid in the management of HCV-infected individuals undergoing anti-viral therapy. The dynamic range for this test is log10 = 1.08 to 8.00 and/or 12 to 100,000,000 IU/mL. The limit of detection (LOD) for this assay is 12 IU/mL and the limit of quantitation (LOQ) is 12 IU/mL. This assay is FDA approved for clinical use. Oleg Jara DO LAB BLOOD ORDERABLES Final Resu lt [facility] [address] [place] [address] * KS INSERT NON-TUNNEL CV CATH, HC INSERT NON-TUNNEL CV CATH, CVC TRIPLE LUMEN (SMARTFORM LINK) (07/31/2024 4:11 PM EDT) Narrative Oleg Jara DO - 07/31/2024 4:11 PM EDT Oleg Jara DO 07/31/2024 4:23 PM Central Line Performed by: Rolanda Lynne DO Authorized by: Oleg Jara DO Consent: Consent obtained: Verbal Consent given by: Patient Risks, benefits, and alternatives were discussed: yes Risks discussed: Arterial puncture, bleeding, incorrect placement and infection Alternatives discussed: No treatment and delayed treatment Oaks protocol: Patient identity confirmed: Verbally with patient Attending Supervision?: yes Pre-procedure details: Indication(s): central venous access Hand hygiene: Hand hygiene performed prior to insertion Sterile barrier technique: All elements of maximal sterile technique followed Skin preparation: Chlorhexidine Skin preparation agent: Skin preparation agent completely dried prior to procedure Sedation: Sedation type: Anxiolysis Anesthesia: Anesthesia method: Local infiltration Local anesthetic: Lidocaine 1% w/o epi Procedure details: Location: L internal jugular Patient position: Supine Procedural supplies: Triple lumen Catheter size: 13 Fr Landmarks identified: yes Ultrasound guidance: yes Ultrasound guidance timing: real time Sterile ultrasound techniques: Sterile gel and sterile probe covers were used Number of attempts: 1 Successful placement: no Post-procedure details: Procedure completion: Procedure terminated electively by provider Comments: Unable to thread wire past 15 cm marker on guidewire after 3x attempts. Terminated procedure. Oleg Jara DO IN CLINIC/BEDSIDE ORDERABLES Fi nal Result * ECHO, ADULT TRANSTHORACIC COMPLETE (07/31/2024 10:20 AM EDT) Height 180.3 [facility] ISC[facility] Weight 98.9 [facility] ISC[facility] BSA 2.19 m2 [facility] ISC[facility] LVIDd 53 mm [facility] ISCV LVIDs 49 mm [facility]ITA ISCV IVSd 12 mm [facility] ISCV LVPWd 13 mm [facility] ISCV LV MASS(C)D 271 g FOLRESITA ISCV [facility] CV ECHO LV MASS INDEX 124 g/m2 FLOR[facility]ITA ISCV LV RWT 0.47 mm FLOR[facility]ITA ISCV LV EDV(MOD-4ch) 165 mL [facility]ITA ISCV LV ESV(MOD4ch) 132 mL FLORESITA ISCV EF(MOD-sp4) 20 % [facility] ISCV LV EDV(MOD-2ch) 174 mL [facility]ITA ISCV LV ESV(MOD2ch) 132 mL FLORESITA ISCV EF(MOD-sp2) 24 % [facility]OR[facility]ITA ISCV EDV(MOD-bp) 170 mL FLORESITA ISCV ESV(MOD-bp) 132 mL FLORESITA ISCV EF(MOD-bp) 22 % [facility] ISC[facility] LVOT diam 23 mm [facility] ISCV LVOT AREA 4.2 cm2 [facility] ISC[facility] LV V1 VTI 13.8 cm [facility] ISCV SV(LVOT) 57 mL [facility]ITA ISCV MV E Vmax 63.4 cm/s FLORESITA ISCV MV A Vmax 76.5 cm/s FL[facility]ESITA ISCV MV E/A 0.8 cm/s [facility] ISCV TR Vmax 309.2 cm/s [facility]ITA ISCV PA V2 VTI 15.2 cm [facility] ISCV LA dimension 42 mm [facility] ISCV RV base 40 mm [facility] ISCV RVOT diam 33 mm FL[facility]ITA ISCV RV s' Yakelin 12.8 cm/s [facility]ITA ISCV TAPSE 22 mm [facility] ISCV RV DONNA 20.5 cm2 [facility] ISCV RV RYAN 12.6 cm2 [facility] ISCV RV FAC_phl 39 % [facility] ISC[facility] TR Max PG 38 mmHG FL[facility] ISCV LV V1 Vmax 85.7 cm/s [facility] ISCV Ao V2 VTI 18.2 cm [facility] ISCV Ao mean PG 3 mmHg [facility] ISCV Ao V2 Vmax 115.5 cm/s [facility]ORESITA ISCV Ao max PG 5 mmHg [facility] ISC[facility] AV VTI Index 0.76 [facility] ISCV MARIA UEGENIA(I,D) 3.1 cm2 [facility] ISCV MARIA EUGENIA(VTI)/BSA_ph l 1.4 cm2/m2 [facility] ISCV MV dec time 120 ms [facility] ISCV MV P1/2t 35 ms [facility] ISCV MVA(P1/2t) 6.[address] [facility] ISCV [address] end-d yakelin 143.5 cm/s [facility]ITA ISCV PA MG 2 mmHg [facility] ISCV PA V2 Vmax 93.4 cm/s [facility]OR[facility]ITA ISCV PA PG 3 mmHg [facility] ISCV Ao Root Diam 32 mm [facility] ISCV Asc Ao Diam 31 mm [facility] ISCV LV mean PG 1.5 mmHG [facility] ISCV LV V1 mean 58.2 cm/sec FL[facility]ITA ISCV LV max PG 2.9 mmHg [facility]ITA ISCV LVLs ap2 9.1 mm [facility]ITA ISCV AV-pr VR 0.7 [facility] ISCV Ao V2 mean 80.2 cm/s [facility]ITA ISCV LAV(MOD-bp) Indexed 44 mL/m2 FL[facility] ISCV LAV(MOD-4ch) 92 mL FLORESITA ISCV LAV(MOD-2ch) 100 mL FLORESITA ISCV RA MOD 4Ch 91 mL [facility] ISCV BRET 42 mL/m2 [facility] ISCV MPA diam 30 mm [facility] ISCV MPA area 7.1 cm2 [facility] ISCV RVSP 46 mmHg [facility] ISCV RAP systole 8 mmHg [facility] ISCV PADP 16 mmHg FLORESITA ISCV TR VC 5 mm [facility]ITA ISCV Anatomical Region Laterality Modality Echocardiography Narrative 07/31/2024 3:22 PM EDT Left Ventricle: Based on the linear dimension [...] and technique, EF is now severely reduced. Left Ventricle Based on the linear dimension and/or 2D volumes, the left ventricle is mildly dilated in size. There is normal left ventricular myocardial thickness and mass. The left ventricular systolic function is severely reduced. The LVEF is visually estimated at less than 20%. Unable to assess diastolic function due to tachycardia. There is global hypokinesis of the left ventricle. Right Ventricle The right ventricle is normal in size. The right ventricular systolic function is normal. The estimated right ventricular systolic pressure is 46 mmHg. Right ventricular systolic pressure is mildly elevated (35-50mmHg). Left Atrium The left atrial size is moderately increased with an indexed volume of 42-48 mL/m2. The interatrial septum is intact with no evidence for an atrial septal defect. Right Atrium The right atrial volume index is severely increased (>46mL/m2). IVC/SVC Based on the IVC size and respiratory variation, the estimated right atrial pressure is 8mmHg. Mitral Valve The mitral valve leaflets are normal in appearance with no evidence of mitral valve prolapse. There is mild mitral regurgitation. There is no mitral stenosis. Tricuspid Valve The tricuspid valve is normal in appearance. There is moderate tricuspid regurgitation. The width of the vena contracta suggests moderate (0.3-0.69cm) TR.There is no tricuspid stenosis. Aortic Valve The aortic valve appears to be trileaflet. There is trace aortic valve regurgitation. There is no hemodynamically significant valvular aortic stenosis. Pulmonic Valve The pulmonic valve is normal in appearance. There is trace pulmonic regurgitation. There is no pulmonic stenosis. Pericardium There is a small circumferential pericardial effusion. There is no echocardiographic evidence of cardiac tamponade. Evidence includes no chamber collapse, no respiratory transvalvular variation. Great Vessels The aortic root is normal in size. In the maximally visualized portion, the ascending aorta appears normal in size. The main pulmonary artery is severely dilated. Extracardiac There is a left pleural effusion. Study Details A complete transthoracic echocardiogram using two-dimensional (2D), m-mode, color and spectral flow Doppler imaging was performed. During the study the apical, parasternal, subcostal and suprasternal view was captured. Overall the study quality was good. The study was technically difficult due to patient's clinical status. Heart rate was tachycardic. Height: 180.3 cm. Weight: 98.9 kg. BSA: 2.19 m2. The heart rhythm during this exam was most suggestive of a sinus rhythm. Patient on dialysis at the time of exam Study Recommendation Compared to the most recently available prior study, and allowing for differences in image quality and technique, EF is now severely reduced. Wall Scoring Baseline Score Index: 2.00 The left ventricular wall motion is globally hypokinetic. Oleg Jara DO CV ECHO PROCEDURES Final Result * CT Abdomen Pelvis w IV Contrast (07/31/2024 4:12 AM EDT) Anatomical Region Laterality Modality Abdomen, Pelvis Computed Tomogra phy Impressions 07/31/2024 9:34 AM EDT Hepatic parenchymal disease with sequela of portal hypertension including splenomegaly, view venous collaterals, anasarca and large volume ascites. Bowel wall thickening of right colon is favored to represent portal colopathy. Although less likely, colitis is also possible. Small bilateral testicular hydroceles with scrotal thickening. If there is continued clinical concern, recommend dedicated testicular ultrasound. CRITICAL RESULT: No. COMMUNICATION: Per this written report. By electronically signing this report, I, the attending physician, attest that I have personally reviewed the images/data for the above examination(s) and agree with the final edited report. Drafted by Caprice Moy DO on 07/31/2024 8:15 AM Final report signed by Deirdre Fuentes DO on 07/31/2024 9:34 AM Narrative 07/31/2024 9:34 AM EDT CLINICAL INDICATION: abdominal pain, testicular swelling, please scan down through testes TECHNIQUE: Multiple axial CT images were obtained from lung bases through pubic symphysis following administration of IV contrast, Omnipaque 300, 100 mL. Reformatted images in the coronal and sagittal planes were generated from the axial data set to facilitate diagnostic accuracy. Total DLP (Dose-Length Product): 2137.39 mGy.cm. Please note: The reported value represents the total of one or more individual components during the CT acquisition on this date and at this time, and as such, the same value may appear in more than one CT report depending on the interpreting/reporting physicians. COMPARISON: None. FINDINGS: Lower Chest: Please see separate same day chest CT for findings above the diaphragm. Solid Abdominal Organs: Hepatic volume redistribution compatible with parenchymal disease. No suspicious liver lesions. Mild gallbladder edema in a nondistended gallbladder, likely sequela of volume overload. Splenomegaly measuring 14.5 cm. No intra or extrahepatic ductal dilatation. No main pancreatic ductal dilatation. No peripancreatic fluid collections. Adrenal glands unremarkable. 1.8 cm hypoattenuating cyst in the right renal lower pole. No hydronephrosis. No discernible calculus. GI Tract/Mesentery/Peritoneum: Suboptimal evaluation of the bowel secondary to large volume ascites. Within the limitation, there is some bowel wall thickening of the right colon. No bowel dilatation or obstruction. No pneumoperitoneum. Pelvic Viscera: Suboptimal evaluation secondary to large volume ascites. Small bilateral testicular hydroceles. Diffuse skin thickening of the scrotum. Decompressed urinary bladder Plunkett catheter in place. Lymph Nodes/Vasculature: No lymphadenopathy by CT size criteria. The aortoiliac vasculature is patent and normal in caliber. There are a few splenic varices. Free Fluid: Large volume abdominal and pelvic ascites. Musculoskeletal and Body Wall: No aggressive or suspicious findings. Degenerative changes. Diffuse anasarca. Procedure Note Deirdre Fuentes, DO - 07/31/2024 CLINICAL INDICATION: abdominal pain, testicular swelling, please scan down through testes TECHNIQUE: Multiple axial CT images were obtained from lung bases through pubicsymphysis following administration of IV contrast, Omnipaque 300, 100 mL.Reformatted images in the coronal and sagittal planes were generated fromthe axial data set to facilitate diagnostic accuracy. Total DLP (Dose-Length Product): 2137.39 mGy.cm. Please note: The reportedvalue represents the total of one or more individual components during theCT acquisition on this date and at this time, and as such, the same valuemay appear in more than one CT report depending on theinterpreting/reporting physicians. COMPARISON: None. FINDINGS: Lower Chest: Please see separate same day chest CT for findings above thediaphragm. Solid Abdominal Organs: Hepatic volume redistribution compatible withparenchymal disease. No suspicious liver lesions. Mild gallbladder edemain a nondistended gallbladder, likely sequela of volume overload.Splenomegaly measuring 14.5 cm. No intra or extrahepatic ductaldilatation. No main pancreatic ductal dilatation. No peripancreatic fluidcollections. Adrenal glands unremarkable. 1.8 cm hypoattenuating cyst inthe right renal lower pole. No hydronephrosis. No discernible calculus. GI Tract/Mesentery/Peritoneum: Suboptimal evaluation of the bowelsecondary to large volume ascites. Within the limitation, there is somebowel wall thickening of the right colon. No bowel dilatation orobstruction. No pneumoperitoneum. Pelvic Viscera: Suboptimal evaluation secondary to large volume ascites.Small bilateral testicular hydroceles. Diffuse skin thickening of thescrotum. Decompressed urinary bladder Plunkett catheter in place. Lymph Nodes/Vasculature: No lymphadenopathy by CT size criteria. Theaortoiliac vasculature is patent and normal in caliber. There are a fewsplenic varices. Free Fluid: Large volume abdominal and pelvic ascites. Musculoskeletal and Body Wall: No aggressive or suspicious findings.Degenerative changes. Diffuse anasarca. IMPRESSION: Hepatic parenchymal disease with sequela of portal hypertension includingsplenomegaly, view venous collaterals, anasarca and large volumeascites. Bowel wall thickening of right colon is favored to represent portalcolopathy. Although less likely, colitis is also possible. Small bilateral testicular hydroceles with scrotal thickening. If there iscontinued clinical concern, recommend dedicated testicular ultrasound. CRITICAL RESULT: No. COMMUNICATION: Per this written report. By electronically signing this report, I, the attending physician, attestthat I have personally reviewed the images/data for the aboveexamination(s) and agree with the final edited report. Drafted by Caprice Moy DO on 07/31/2024 8:15 AM Final report signed by Deirdre Fuentes DO on 07/31/2024 9:34 AM us Tr Conn MD IMG CT PROCEDURES Final Re sult * CT Chest wo IV Contrast (07/31/2024 4:12 AM EDT) Anatomical Region Laterality Modality Chest Computed Tomogra phy Impressions 07/31/2024 10:10 AM EDT Increased pleural effusions, more on the left side with associated compressive atelectasis. Small pericardial effusion. Features in the lung bases, most consistent with pulmonary edema. Concomitant infection cannot be entirely excluded. Multiple enlarged mediastinal lymph nodes as follow-up chest CT to document resolution. CRITICAL RESULT: No. COMMUNICATION: Per this written report. By electronically signing this report, I, the attending physician, attest that I have personally reviewed the images/data for the above examination(s) and agree with the final edited report. Drafted by KENNEDY Villagomez on 07/31/2024 8:08 AM Final report signed by Alejandro Pride MD on 07/31/2024 10:10 AM Narrative 07/31/2024 10:10 AM EDT CLINICAL INDICATION: Respiratory illness, nondiagnostic xray TECHNIQUE: Multiple CT helical images were obtained from thoracic inlet through upper abdomen without administration of IV contrast. Total DLP (Dose-Length Product): 2137.39 mGy.cm. Please note: The reported value represents the total of one or more individual components during the CT acquisition on this date and at this time, and as such, the same value may appear in more than one CT report depending on the interpreting/reporting physicians. COMPARISON: May 06, 2024. FINDINGS: Mediastinum and Pleura: Borderline mediastinal adenopathy, likely reactive. Right-sided Port-A-Cath with the tip at superior cavoatrial junction. Cardiomegaly. Mild coronary artery calcifications. Increased moderate left and stable small right pleural effusions. Increased small pericardial effusion. Relative hypoattenuation of the blood pool likely reflects anemia. Lungs: Increased bilateral basilar compressive atelectasis, more on the left side. Increased interlobular septal thickening, predominantly in the lower lobes; likely related to pulmonary edema. Groundglass opacities in the left lung base may reflect edema. No suspicious pulmonary nodules. Calcified granuloma right lower lobe. Upper Abdomen: Please see separate report for findings of the concurrently performed abdominal CT. Ascites. Musculoskeletal: No suspicious lytic or sclerotic lesion. Dense bones consistent with renal osteodystrophy. Degenerative changes of the spine. Diffuse soft tissue edema of chest wall and mediastinum. Procedure Note Alejandro Pride MD - 07/31/2024 CLINICAL INDICATION: Respiratory illness, nondiagnostic xray TECHNIQUE: Multiple CT helical images were obtained from thoracic inlet through upperabdomen without administration of IV contrast. Total DLP (Dose-Length Product): 2137.39 mGy.cm. Please note: The reportedvalue represents the total of one or more individual components during theCT acquisition on this date and at this time, and as such, the same valuemay appear in more than one CT report depending on theinterpreting/reporting physicians. COMPARISON: May 06, 2024. FINDINGS: Mediastinum and Pleura: Borderline mediastinal adenopathy, likelyreactive. Right-sided Port-A-Cath with the tip at superior cavoatrialjunction. Cardiomegaly. Mild coronary artery calcifications. Increasedmoderate left and stable small right pleural effusions. Increased smallpericardial effusion. Relative hypoattenuation of the blood pool likelyreflects anemia. Lungs: Increased bilateral basilar compressive atelectasis, more on theleft side. Increased interlobular septal thickening, predominantly in thelower lobes; likely related to pulmonary edema. Groundglass opacities inthe left lung base may reflect edema. No suspicious pulmonary nodules.Calcified granuloma right lower lobe. Upper Abdomen: Please see separate report for findings of the concurrentlyperformed abdominal CT. Ascites. Musculoskeletal: No suspicious lytic or sclerotic lesion. Dense bonesconsistent with renal osteodystrophy. Degenerative changes of the spine.Diffuse soft tissue edema of chest wall and mediastinum. IMPRESSION: Increased pleural effusions, more on the left side with associatedcompressive atelectasis. Small pericardial effusion. Features in the lung bases, most consistent with pulmonary edema.Concomitant infection cannot be entirely excluded. Multiple enlarged mediastinal lymph nodes as follow-up chest CT todocument resolution. CRITICAL RESULT: No. COMMUNICATION: Per this written report. By electronically signing this report, I the attending physician, jayne I have personally reviewed the images/data for the aboveexamination(s) and agree with the final edited report. Drafted by KENNEDY Villagomez on 07/31/2024 8:08 AM Final report signed by Alejandro Pride MD on 07/31/2024 10:10 AM Aaron Manley MD IMG CT PROCEDURES Estefany l Result * Hemoglobin A1c (07/31/2024 1:03 AM EDT) Hemoglobin A1c 5.3 <5.7 % 07/31/2024 11:50 AM EDT [facility] Blood Venous blood specimen / Unknown Venipuncture / Unknown 07/31/2024 1:03 AM EDT 07/31/2024 1:11 AM EDT Narrative [facility] - 07/31/2024 11:50 AM EDT HA1C Interpretive Data: Diagnosis of Diabetes: Diabetic > or = 6.5% Pre-diabetic 5.7 to 6.4% Non-diabetic < or = 5.6% Glycemic Targets for Type I and Type II Diabetics: Non- Adults <7.0% Adults <6.0% Children and Adolescents <7.5% Source: [place] [employer]. Standards of medical care in diabetes,2017. Diabetes Care.2017:40 (suppl 1):S1-S135. Aaron Manley MD LAB BLOOD ORDERABLES F inal Result [facility] [address] [place] [address] * Germán auris Surveillance by PCR (07/31/2024 12:58 AM EDT) Germán auris PCR Result Not Detected Not Detected 07/31/2024 1:30 PM EDT [facility] Swab (Axilla and Groin) Non-blood Collection / Unknown 07/31/2024 12:58 AM EDT 07/31/2024 2:05 AM EDT Narrative [facility] - 07/31/2024 1:30 PM EDT This PCR assay was developed and its performance characteristics determined by [facility] as appropriate for clinical purposes. This assay has not been cleared or approved by the FDA, but is performed in a CLIA regulated laboratory that is qualified to perform high-complexity testing. Aaron Manley MD LAB MICROBIOLOGY - GEN ERAL ORDERABLES Final Result Performing Organization Address City/[facility]/ZIP Co de Phone Number [facility] [address] [place] [address] * Urine Whiteside Panel (07/30/2024 10:49 PM EDT) Extra Reflex urine culture not indicated 07/31/2024 1:04 AM EDT [facility] Urine Urine specimen obtained by clean catch procedure / Unknown Non-blood Collection / Unknown 07/30/2024 10:49 PM EDT 07/30/2024 11:09 PM EDT Tr Conn MD LAB URINE ORDERABLES Final Result Performing Organization Address [facility] Co de Phone Number [facility] [address] [place] [address] * Urinalysis Microscopic Examination (07/30/2024 10:49 PM EDT) Urine Urine specimen obtained by clean catch procedure / Unknown Non-blood Collection / Unknown 07/30/2024 10:49 PM EDT 07/30/2024 11:08 PM EDT Tr Conn MD LAB URINE ORDERABLES Final Result Performing Organization Address City/[facility]/ZIP Co de Phone Number [facility] [address] [place] [address] * (ABNORMAL) Amphetamine Urine Confirm LCMSMS (07/30/2024 10:49 PM EDT) Amphetamine 362(H) <50 ng/mL 08/02/2024 2:40 PM EDT [facility] Methamphetamine 605(H) <50 ng/mL 2:40 PM EDT [facility] MDA <50 <50 ng/mL 08/02/2024 2:40 PM EDT [facility] MDMA <50 <50 ng/mL 08/02/2024 2:40 PM EDT [facility] Urine Urine specimen obtained by clean catch procedure / Unknown Non-blood Collection / Unknown 07/30/2024 10:49 PM EDT 07/30/2024 10:55 PM EDT Narrative [facility] - 08/02/2024 2:40 PM EDT Drug analysis is confirmed by LC-MS/MS (LC Tandem Mass Spectrometry) on Urine specimens. This test was developed and its performance characteristics determined by [facility]. It has not been cleared or approved by the FDA. The laboratory is regulated under CLIA as qualified to perform high-complexity testing. This test is used for clinical purposes. Testing is performed at the [facility]. Tr Conn MD LAB URINE ORDERABLES Final Result [facility] [address] [place] [address] * (ABNORMAL) Cocaine Metabolite Confirm Urine (07/30/2024 10:49 PM EDT) Benzoylecgonine >1,000(H) <50 ng/mL 2:40 PM EDT [facility] Urine Urine specimen obtained by clean catch procedure / Unknown Non-blood Collection / Unknown 07/30/2024 10:49 PM EDT 07/30/2024 10:55 PM EDT Narrative [facility] - 08/02/2024 2:40 PM EDT Drug analysis is confirmed by LC-MS/MS (LC Tandem Mass Spectrometry) on Urine specimens. This test was developed and its performance characteristics determined by [facility]. It has not been cleared or approved by the FDA. The laboratory is regulated under CLIA as qualified to perform high-complexity testing. This test is used for clinical purposes. Testing is performed at the [facility]. Tr Conn MD LAB URINE ORDERABLES Final Result [facility] [address] [place] [address] * (ABNORMAL) Opiates Confirm Urine (07/30/2024 10:49 PM EDT) Codeine <50 <50 ng/mL 08/02/2024 2:40 PM EDT [facility] Codeine Glucuronide 102(H) <50 ng/mL 08/02/2024 2:40 PM EDT [facility] Desmethyl Tramadol <50 <50 ng/mL 08/02/2024 2:40 PM EDT [facility] EDDP - Methadone Metabolite <50 <50 ng/mL 08/02/2024 2:40 PM EDT [facility] Hydrocodone <50 <50 ng/mL 08/02/2024 2:40 PM EDT [facility] Hydromorphone <50 <50 ng/mL 08/02/2024 2:40 PM EDT [facility] Hydromorphone Glucuronide <50 <50 ng/mL 08/02/2024 2:40 PM EDT [facility] Comment:Metabolite of Hydrom orphone Meperidine <50 <50 ng/mL 08/02/2024 2:40 PM EDT [facility] Methadone <50 <50 ng/mL 08/02/2024 2:40 PM EDT [facility] 6 Monoacetyl morphine <10 <10 ng/mL 08/02/2024 2:40 PM EDT [facility] Morphine 58(H) <50 ng/mL 08/02/2024 2:40 PM EDT [facility] Morphine Glucuronide >1,000(H) <50 ng/mL 08/02/2024 2:40 PM EDT [facility] Comment:Metabolite of Morphi ne Naloxone <50 <50 ng/mL 08/02/2024 2:40 PM EDT [facility] Naloxone Glucuronide <50 <50 ng/mL 08/02/2024 2:40 PM EDT [facility] Comment:Metabolite of Naloxo ne Normeperidine <50 <50 ng/mL 08/02/2024 2:40 PM EDT [facility] Tramadol <50 <50 ng/mL 08/02/2024 2:40 PM EDT [facility] Urine Urine specimen obtained by clean catch procedure / Unknown Non-blood Collection / Unknown 07/30/2024 10:49 PM EDT 07/30/2024 10:55 PM EDT Narrative [facility] - 08/02/2024 2:40 PM EDT Drug analysis is confirmed by LC-MS/MS (LC Tandem Mass Spectrometry) on Urine specimens. This test was developed and its performance characteristics determined by [facility]. It has not been cleared or approved by the FDA. The laboratory is regulated under CLIA as qualified to perform high-complexity testing. This test is used for clinical purposes. Testing is performed at the [facility]. Tr Conn MD LAB URINE ORDERABLES Final Result [facility] [address] [place] [address] * Comprehensive GI Panel by PCR (07/30/2024 10:49 PM EDT) Gastrointestinal PCR Panel Result Test not indicated due to the receipt of formed or semi-formed stool specimen. Not Detected for all analytes. 07/31/2024 8:21 AM EDT [facility] Stool Rectum structure / Unknown Non-blood Collection / Unknown 07/30/2024 10:49 PM EDT 07/30/2024 11:49 PM EDT Narrative [facility] - 07/31/2024 8:21 AM EDT This specimen was tested for the following analytes: Campylobacter species, Plesiomonas shigelloides, Salmonella species, Vibrio species, Vibrio cholerae, Yersinia enterolitica, Enteroaggregative E. coli (EAEC), Enteropathogenic E. Coli (EPEC), Enterotoxigenic E. coli (ETEC), Shiga-like toxin-producing E. coli (STEC), Shigella/Enteroinvasive E. coli (EIEC), Cryptosporidium, Cyclospora cayetanensis, Entamoeba histolytica, Giardia lamblia, Adenovirus f40/41, Astrovirus, Norovirus GI/GII, Rotavirus A, and Sapovirus. Note: Clostridium difficile toxin a/b will no longer be resulted using this platform. Please order the Clostridium difficile by PCR assay if clinically indicated. us Tr Conn MD LAB MICROBIOLOGY - GENERAL ORDERABLES Final Result [facility] [address] [place] [address] * Drug abuse screen (07/30/2024 10:49 PM EDT) Pathologist [facility] Amphetamine Screen Urine Presumptive positive. Confirmation by LC-MS/MS to follow. Cutoff: 500 ng/mL 07/30/2024 11:20 PM EDT [facility] Benzodiazepines Screen Urine Negative Cutoff: 200 ng/mL 07/30/2024 11:20 PM EDT [facility] Cannabinoid Screen Urine Negative Cutoff: 50 ng/mL 07/30/2024 11:20 PM EDT [facility] Cocaine Screen Urine Presumptive positive. Confirmation by LC-MS/MS to follow. Cutoff: 300 ng/mL 07/30/2024 11:20 PM EDT [facility] Barbiturate Screen Urine Negative Cutoff: 200 ng/mL 07/30/2024 11:20 PM EDT [facility] Opiate Screen Urine Presumptive positive. Confirmation by LC-MS/MS to follow. Cutoff: 300 ng/mL 07/30/2024 11:20 PM EDT [facility] Methadone Screen Urine Negative Cutoff: 300 ng/mL 07/30/2024 11:20 PM EDT [facility] Buprenorphine Screen Urine Negative Cutoff: 10 ng/mL 07/30/2024 11:20 PM EDT [facility] Fentanyl Screen Urine Presumptive positive. Confirmation by LC-MS/MS to follow. Cutoff: 1 ng/mL 07/30/2024 11:20 PM EDT [facility] Oxycodone Screen Urine Negative Cutoff: 100 ng/mL 07/30/2024 11:20 PM EDT [facility] Urine Urine specimen obtained by clean catch procedure / Unknown Non-blood Collection / Unknown 07/30/2024 10:49 PM EDT 07/30/2024 10:55 PM EDT Tr Conn MD LAB URINE ORDERABLES Final Result Performing Organization Address [facility] Co de Phone Number [facility] [address] [place] [phone] * (ABNORMAL) Fentanyl Urine Confirm (07/30/2024 10:49 PM EDT) Fentanyl 10(H) <1 ng/mL 08/02/2024 2:40 PM EDT [facility] Norfentanyl >100(H) <2 ng/mL 08/02/2024 2:40 PM EDT [facility] Urine Urine specimen obtained by clean catch procedure / Unknown Non-blood Collection / Unknown 07/30/2024 10:49 PM EDT 07/30/2024 10:55 PM EDT Narrative [facility] - 08/02/2024 2:40 PM EDT Drug analysis is confirmed by LC-MS/MS (LC Tandem Mass Spectrometry) on Urine specimens. This test was developed and its performance characteristics determined by [facility]. It has not been cleared or approved by the FDA. The laboratory is regulated under CLIA as qualified to perform high-complexity testing. This test is used for clinical purposes. Testing is performed at the [facility]. Tr Conn MD LAB URINE ORDERABLES Final Result Performing Organization Address [facility] Co de Phone Number [facility] [address] [place] [address] * (ABNORMAL) Comprehensive Urine Drug Screening, Qualitative Assay, >= 27 Drug Classes (0:49 PM EDT) Acetaminophen Negative Negative 08/02/2024 5:55 PM EDT [facility] Alprazolam Negative Negative 08/02/2024 5:55 PM EDT [facility] Amantadine Negative Negative 08/02/2024 5:55 PM EDT [facility] Amitriptyline Negative Negative 08/02/2024 5:55 PM EDT [facility] Amphetamine Negative Negative 08/02/2024 5:55 PM EDT [facility] Atenolol Negative Negative 08/02/2024 5:55 PM EDT [facility] Benzoylecgonine Negative Negative 5:55 PM EDT [facility] Bisoprolol Negative Negative 08/02/2024 5:55 PM EDT [facility] Bupropion Negative Negative 08/02/2024 5:55 PM EDT [facility] Butalbital Negative Negative 08/02/2024 5:55 PM EDT [facility] Carbamazepine Negative Negative 08/02/2024 5:55 PM EDT [facility] Carisoprodol Negative Negative 08/02/2024 5:55 PM EDT [facility] Chlorpheniramine Negative Negative 08/03/19 5:55 PM EDT [facility] Citalopram Negative Negative 08/02/2024 5:55 PM EDT [facility] Clindamycin Negative Negative 08/02/2024 5:55 PM EDT [facility] Clonidine Negative Negative 08/02/2024 5:55 PM EDT [facility] Clopidogrel / Ticlopidine Negative Negative 08/02/2024 5:55 PM EDT [facility] Cocaethylene Negative Negative 08/02/2024 5:55 PM EDT [facility] Cocaine Negative Negative 08/02/2024 5:55 PM EDT [facility] Codeine Negative Negative 08/02/2024 5:55 PM EDT [facility] Cyclobenzaprine Negative Negative 5:55 PM EDT [facility] Desvenlafaxine Negative Negative 08/02/2024 5:55 PM EDT [facility] Dextromethorphan Negative Negative 08/03/19 5:55 PM EDT [facility] Diazepam Negative Negative 08/02/2024 5:55 PM EDT [facility] Diltiazem Negative Negative 08/02/2024 5:55 PM EDT [facility] Diphenhydramine Positive(A) Negative 08/03/19 5:55 PM EDT [facility] Doxepine Negative Negative 08/02/2024 5:55 PM EDT [facility] Doxylamine Negative Negative 08/02/2024 5:55 PM EDT [facility] EDDP-Methadone metabolite Negative Negative 08/02/2024 5:55 PM EDT [facility] Fentanyl Negative Negative 08/02/2024 5:55 PM EDT [facility] Fluconazole Negative Negative 08/02/2024 5:55 PM EDT [facility] Fluoxetine Negative Negative 08/02/2024 5:55 PM EDT [facility] Guaifenesin Negative Negative 08/02/2024 5:55 PM EDT [facility] Haloperidol Negative Negative 08/02/2024 5:55 PM EDT [facility] Heroin/6-JUSTIN Negative Negative 08/02/2024 5:55 PM EDT [facility] Hydrocodone Negative Negative 08/02/2024 5:55 PM EDT [facility] Hydroxyzine / Cetirizine metabolite Negative Negative 08/02/2024 5:55 PM EDT [facility] Ibuprofen Negative Negative 08/02/2024 5:55 PM EDT [facility] Imipramine Negative Negative 08/02/2024 5:55 PM EDT [facility] Ketamine Negative Negative 08/02/2024 5:55 PM EDT [facility] Labetolol Negative Negative 08/02/2024 5:55 PM EDT [facility] Lamotrigine Negative Negative 08/02/2024 5:55 PM EDT [facility] Levetiracetam Negative Negative 08/02/2024 5:55 PM EDT [facility] Lidocaine Negative Negative 08/02/2024 5:55 PM EDT [facility] MDA Negative Negative 08/02/2024 5:55 PM EDT [facility] MDMA Negative Negative 08/02/2024 5:55 PM EDT [facility] Memantine Negative Negative 08/02/2024 5:55 PM EDT [facility] Meperidine Negative Negative 08/02/2024 5:55 PM EDT [facility] Meprobamate Negative Negative 08/02/2024 5:55 PM EDT [facility] Metaxalone Negative Negative 08/02/2024 5:55 PM EDT [facility] Methamphetamine Negative Negative 5:55 PM EDT [facility] Methocarbamol Negative Negative 08/02/2024 5:55 PM EDT [facility] Methylecgonine Negative Negative 08/02/2024 5:55 PM EDT [facility] Metoclopramide Negative Negative 08/02/2024 5:55 PM EDT [facility] Metoprolol Negative Negative 08/02/2024 5:55 PM EDT [facility] Metronidazole Negative Negative 08/02/2024 5:55 PM EDT [facility] Midazolam Negative Negative 08/02/2024 5:55 PM EDT [facility] Midazolam Metabolite Negative Negative 08/02/2024 5:55 PM EDT [facility] Mirtazapine Negative Negative 08/02/2024 5:55 PM EDT [facility] Misc Test Result Negative Negative 08/03/19 5:55 PM EDT [facility] Naproxen Negative Negative 08/02/2024 5:55 PM EDT [facility] Nefazodone Negative Negative 08/02/2024 5:55 PM EDT [facility] Norfentanyl Positive(A) Negative 08/02/2024 5:55 PM EDT [facility] Nortriptyline Negative Negative 08/02/2024 5:55 PM EDT [facility] Ordanstron Negative Negative 08/02/2024 5:55 PM EDT [facility] Oxcarbazepine Negative Negative 08/02/2024 5:55 PM EDT [facility] Oxycodone Negative Negative 08/02/2024 5:55 PM EDT [facility] Paroxethine Negative Negative 08/02/2024 5:55 PM EDT [facility] Phenobarbital Negative Negative 08/02/2024 5:55 PM EDT [facility] Phentermine Negative Negative 08/02/2024 5:55 PM EDT [facility] Phenytoin Negative Negative 08/02/2024 5:55 PM EDT [facility] Primidone Negative Negative 08/02/2024 5:55 PM EDT [facility] Promethazine Negative Negative 08/02/2024 5:55 PM EDT [facility] Propofol Negative Negative 08/02/2024 5:55 PM EDT [facility] Propranolol Negative Negative 08/02/2024 5:55 PM EDT [facility] Quetiapine Negative Negative 08/02/2024 5:55 PM EDT [facility] Quinine Negative Negative 08/02/2024 5:55 PM EDT [facility] Rantidine Negative Negative 08/02/2024 5:55 PM EDT [facility] Sertraline Negative Negative 08/02/2024 5:55 PM EDT [facility] Spironolactone Negative Negative 08/02/2024 5:55 PM EDT [facility] Tizanidine Negative Negative 08/02/2024 5:55 PM EDT [facility] Topiramate Negative Negative 08/02/2024 5:55 PM EDT [facility] Tramadol Negative Negative 08/02/2024 5:55 PM EDT [facility] Trazadone/ Trazadone metabolite Negative Negative 08/02/2024 5:55 PM EDT [facility] Trimethoprim Negative Negative 08/02/2024 5:55 PM EDT [facility] Valproic Acid Negative Negative 08/02/2024 5:55 PM EDT [facility] Venlafaxine Negative Negative 08/02/2024 5:55 PM EDT [facility] Verapamil Negative Negative 08/02/2024 5:55 PM EDT [facility] Zolpidem Negative Negative 08/02/2024 5:55 PM EDT [facility] Xylazine Negative Negative 08/02/2024 5:55 PM EDT [facility] Urine Urine specimen obtained by clean catch procedure / Unknown Non-blood Collection / Unknown 07/30/2024 10:49 PM EDT 07/30/2024 11:08 PM EDT us Tr Conn MD LAB URINE ORDERABLES Final Result [facility] [address] [place] [address] * (ABNORMAL) Urinalysis with reflex microscopic (Culture NOT Included) (07/30/2024 10:49 PM EDT) Color, Urine Yellow LAB URINALYSIS - AUTOMATED METHOD 07/30/2024 11:49 PM EDT [facility] Clarity, Urine Clear LAB URINALYSIS - AUTOMATED METHOD 07/30/2024 11:49 PM EDT [facility] Spec [place], Urine 1.020 1.005 - 1.030 LAB URINALYSIS - AUTOMATED METHOD 07/30/2024 11:49 PM EDT [facility] pH, Urine 6.0 5.0 - 8.0 LAB URINALYSIS - AUTOMATED METHOD 07/30/2024 11:49 PM EDT [facility] Protein, Urine >=300(A) Negative mg/dL LAB URINALYSIS - AUTOMATED METHOD 07/30/2024 11:49 PM EDT [facility] Glucose, Urine Negative Negative mg/dL LAB URINALYSIS - AUTOMATED METHOD 07/30/2024 11:49 PM EDT [facility] Ketones, Urine Trace(A) Negative mg/dL LAB URINALYSIS - AUTOMATED METHOD 07/30/2024 11:49 PM EDT [facility] Blood, Urine Large(A) Negative LAB URINALYSIS - AUTOMATED METHOD 07/30/2024 11:49 PM EDT [facility] Bilirubin, Urine Negative Negative LAB URINALYSIS - AUTOMATED METHOD 07/30/2024 11:49 PM EDT [facility] Urobilinogen, Urine 0.2 0.2 to 1.0 mg/dL LAB URINALYSIS - AUTOMATED METHOD 07/30/2024 11:49 PM EDT [facility] Leukocytes, Urine Negative Negative LAB URINALYSIS - AUTOMATED METHOD 07/30/2024 11:49 PM EDT [facility] Nitrite, Urine Negative Negative LAB URINALYSIS - AUTOMATED METHOD 07/30/2024 11:49 PM EDT [facility] RBC, Urine 11 - 15(A) 0 to 3 /HPF LAB URINALYSIS - AUTOMATED METHOD 07/30/2024 11:49 PM EDT [facility] Comment:This result was prev iously suppressed from the chart. WBC, Urine 6 - 10(A) 0 to 5 /HPF LAB URINALYSIS - AUTOMATED METHOD 07/30/2024 11:49 PM EDT [facility] Comment:This result was prev iously suppressed from the chart. Squamous Epithelial Cells 0 - 2 0 to 5 /HPF LAB URINALYSIS - AUTOMATED METHOD 07/30/2024 11:49 PM EDT [facility] Comment:This result was prev iously suppressed from the chart. Hyaline Casts 0 - 2 0 to 5 /LPF LAB URINALYSIS - AUTOMATED METHOD 07/30/2024 11:49 PM EDT [facility] Comment:This result was prev iously suppressed from the chart. Bacteria, Urine Negative Negative LAB URINALYSIS - AUTOMATED METHOD 07/30/2024 11:49 PM EDT [facility] Comment:This result was prev iously suppressed from the chart. Urine Urine specimen obtained by clean catch procedure / Unknown Non-blood Collection / Unknown 07/30/2024 10:49 PM EDT 07/30/2024 11:08 PM EDT us Tr Conn MD LAB URINE ORDERABLES Final Result Performing Organization Address City/State/[facility] Co de Phone Number [facility] [address] [place] [address] * (ABNORMAL) Bacterial ID Gram Negative (07/30/2024 8:54 PM EDT) Enterobacter cloacae complex Result Detected( A) Not Detected 07/31/2024 11:59 AM EDT [facility] Garibay Gram Positive Result Detected( A) Not Detected 07/31/2024 11:59 AM EDT [facility] Blood Venous blood specimen / Unknown Venipuncture / Unknown 07/30/2024 8:54 PM EDT 07/30/2024 9:42 PM EDT Narrative [facility] - 07/31/2024 11:59 AM EDT Analytes Tested Include: Acinetobacter baumannii, Bacteroides fragilis, Citrobacter, Cronobacter sakazakii, Enterobacter (non-cloacae complex), Enterobacter cloacae complex, Escherichia coli, Fusobacterium necrophorum, Fusobacterium nucleatum, Haemophilus influenze, Klebsiella oxytoca, Klebsiella pneumoniae group, Morganella morganii, Neisseria meningitidis, Proteus, Proteus mirabilis, Pseudomonas aeruginosa, Salmonella, Serratia, Serratia marcescens, Stenotrophomonas maltophilia, Garibay Germán target, Garibay gram negative target, and CTX-M, IMP, KPC, NDM, OXA and VIM resistance genes. NOTE: A not detected result for a resistance gene does not indicate susceptibility to antimicrobials. Gram Negative bacteria can be resistant to antimicrobials by mechanisms other than carrying the resistance genes detected by the BCID-GN Version 2.0 Panel. . GARIBAY GERMÁN: Inclusive of Germán albicans, Germán glabrata, Pichia kudriavzevii (formerly Germán krusei) and Germán parasilosis only. . OXA: Inclusive of OXA groups 23 and 48 only. . Klebsiella pneumoniae group: Includes Klesiella pneumoniae, Klebsiella quasipneumoniae and Klebsiella varicola. . Reference Value: Not detected for all analytes tested. Tr Conn MD LAB MICROBIOLOGY - GENERAL ORDERABLES Final Result [facility] [address] [place] [address] * (ABNORMAL) Lactic acid, venous (07/30/2024 8:54 PM EDT) [facility] Lactate, Venous, Whole Blood 4.1(H) 0.5 - 2.2 mmol/L LAB HEMATOLOGY METHOD 07/30/2024 9:08 PM EDT [facility] Blood Venous blood specimen / Unknown Venipuncture / Unknown 07/30/2024 8:54 PM EDT 07/30/2024 9:06 PM EDT Tr Conn MD LAB BLOOD ORDERABLES Final Result [facility] [address] [place] [address] * ABO/Rh (07/30/2024 8:54 PM EDT) [facility] ABO/Rh B Positive 07/30/2024 7:28 PM EDT [facility] Blood Venous blood specimen / Unknown Venipuncture / Unknown 07/30/2024 8:54 PM EDT 07/30/2024 9:01 PM EDT Tr Conn MD LAB BLOOD BANK TEST ORDERA BLES Final Result Performing Organization Address City/[facility]/ZIP Co de Phone Number BLOOD BANK [address] [place] [address], * Anti Xa Level Unfractionated Heparin (07/30/2024 8:54 PM EDT) Anti Xa Level Unfractionated Heparin <0.11 <1.00 IU/mL 07/30/2024 9:18 PM EDT [facility] Blood Venous blood specimen / Unknown Venipuncture / Unknown 07/30/2024 8:54 PM EDT 07/30/2024 9:03 PM EDT Narrative [facility] - 07/30/2024 9:18 PM EDT Therapeutic Range: UFH Full Dose and ACS/MS protocols*: 0.30 - 0.70 IU/mL UFH Low Dose protocol*: 0.25 - 0.50 IU/mL UFH prophylaxis: Not established Tr Conn MD LAB BLOOD ORDERABLES Final Result Performing Organization Address [facility]/ZIP Co de Phone Number [facility] [address] [place] [address] * Lipase (07/30/2024 8:54 PM EDT) Lipase, Plasma 27 19 - 63 U/L 07/30/2024 9:38 PM EDT [facility] Blood Venous blood specimen / Unknown Venipuncture / Unknown 07/30/2024 8:54 PM EDT 07/30/2024 9:03 PM EDT Tr Conn MD LAB BLOOD ORDERABLES Final Result Performing Organization Address City/[facility] Health/ZIP Co de Phone Number [facility] [address] [place] [address] * (ABNORMAL) Bacterial ID Gram Positive (07/30/2024 8:36 PM EDT) Staphylococcus Result Detected( A) Not Detected 07/31/2024 7:29 AM EDT [facility] Comment:Assess if contaminan t or clinically relevant pathogen. Consider clinical stability and immune status of patient. Staphylococcus aureus Result Detected( A) Not Detected 07/31/2024 7:29 AM EDT [facility] MECA Result Detected( A) Not Detected 07/31/2024 7:29 AM EDT [facility] Blood Structure of left hand / Unknown Venipuncture / Unknown 07/30/2024 8:36 PM EDT 07/30/2024 8:53 PM EDT Narrative [facility] - 07/31/2024 7:29 AM EDT Analytes include: Bacillus cereus group, Bacillus subtilis group, Corynebacterium, Cutibacterium acnes (P acnes), Enterococcus, Enterococcus faecalis, Enterococcus faecium, Lactobacillus, Listeria, Listeria monocytogenes, Micrococcus, Staphylococcus, Staphylococcus aureus, Staphylococcus epidermidis, Stapylcoccus lugdunesis, Streptococcus, Streptococcus agalactiae, Streptococcus anginosus group, Streptococcus pneumoniae, Streptococcus pyogenes, Garibay gram negative target, Garibay Germán target and mecA, mecC, Lowell and vanB resistance genes. NOTE: A Not Detected result for result for a resistance gene does not indicate susceptibility to antimicrobials by mechanisms other than carrying the resistance genes detected by the BCID-GP assay. . GARIBAY GERMÁN: Inclusive of Germán albicans, Germán glabrata, Pichia kudriavzevii (formerly Germán krusei) and Germán parapsilosis only. . GARIBAY GRAM NEGATIVE: Includes but not limited to Acinetobacter, Bacteroides, Enterobacteriaceae, Neisseria, Pseudomonas, Serratia, Stenotrophomonas maltophilia. . Reference Value: Not detected for all analytes tested. Tr Conn MD LAB MICROBIOLOGY - GENERAL ORDERABLES Final Result [facility] [address] [place] [address] * [place] CRITICAL CARE, E/M 30-74 MINUTES (07/30/2024 4:29 PM EDT) Tr Maynard MD - 07/30/2024 4:29 PM EDT Tr Conn MD 08/05/2024 8:22 PM Critical Care Performed by: Tr Conn MD Authorized by: Tr Conn MD Critical care provider statement: Critical care time (minutes): 40 Critical care time was exclusive of: Separately billable procedures and treating other patients and teaching time Critical care was time spent personally by me on the following activities: Discussions with consultants, development of treatment plan with patient or surrogate, discussions with primary provider, obtaining history from patient or surrogate, review of old charts, examination of patient, evaluation of patient's response to treatment, ordering and performing treatments and interventions, ordering and review of laboratory studies and ordering and review of radiographic studies (Monitoring and management of blood pressure, aggressive treatment of hyperkalemia, repeated and frequent rhythm strip interpretation) I assumed subsequent critical care for this patient from a provider in my division, on the same day: no Critical care statement: I saw and evaluated the patient with the resident/ fellow. I discussed the case with the resident/ fellow and agree with the findings and plan as documented. Tr Conn MD IN CLINIC/BEDSIDE ORDERABL ES Final Result from Last 3 Months Additional Health Concerns Active Problems Noted Date Diagnosed Date Autogenerated Problem 05/13/2024 Autogenerated Problem 08/05/2024 Infection Onset Date Last Indicated MRSA 05/06/2024 08/04/2024 Insurance [facility] MED[facility] MEDICAID Advance Directives * Full Code (Latest Code Status on File) Date Activated Date Inactivated Comments 07/31/2024 12:30 AM 09/08/2024 8:30 PM Question Answer Comments I have reviewed the capacity from the link above and, if needed, have updated to appropriate status: Yes * Full Code Date Activated Date Inactivated Comments 03/27/2022 10:00 AM 04/24/2022 5:50 PM Question Answer Comments Patient has decision-making capacity? Yes * Full Code Date Activated Date Inactivated Comments 03/15/2022 6:15 PM 03/27/2022 10:00 AM Question Answer Comments Patient has decision-making capacity? Yes Care Teams Aboriginal Liaison Officer Relationship Specialty Start Date End Date Pcp, No [address] [place] [address] PCP - General Family Medicine 07/26/21
--- OUTSIDE RECORDS SUMMARY | 2024-10-12 15:11 | XMS_ITS | Encounter Summary ---
Author Organization Healthcare Address [address] [place] [address] Care Team Providers Care Exchange Operator Name Role Phone Pcp, No Primary Care Provider Unavailabl e Encounter Details Date Type Department Care Team (Latest Contact Info) Description 08/14/2024 Travel Social History Tobacco Use Types Packs/Day [...] answer 05/07/2024 How often do you [facility] or zoroastrian services? Patient unable to answer 05/07/2024 Do you belong to any clubs o r organizations such as druze groups, unions, fraternal or athletic groups, or [...] Never 07/31/2024 How often do you attend druze or zoroastrian serv ices? Never 07/31/2024 Do you belong to any clubs o r organizations such as druze groups, unions, fraternal or athletic groups, or [...] hard 07/31/2024 [facility] [place] of Occupat ional Health - Occupational Stress [...] in the past 12 m [facility], were you homeless or living in a custodial (including now)? Yes 07/31/2024 CAGE ASSESSMENT Answer [...] drink first t terri in the morning (EYE-BODY SHOP MANAGER) to steady your nerves or to [...] Date of Assessment Author No Risk Indicated 08/14/2024 8:00 PM EDT Vega Garcia RN * Question Answer Date of Assessment Author 1. Wish to be (Past 1 Month) No 025 8:00 PM EDT Vega Garcia RN 2. Non-Specific Active Suici veronica Thoughts (Past 1 Month) No 08/14/2024 8:00 PM EDT Vega Garcia RN 6. Suicidal Behavior (Lifetime) No 8:00 PM EDT Vega Garcia RN documented as of this encounter Plan of Treatment Upcoming Encounters Date Type Department Care Team (Late st Contact Info) Description 10/13/2024 8:00 AM EDT [facility] Visit [place] [facility] [address] [place] [address] 12/30/2024 3:40 PM EST Office Visit [facility] [place] [address] [facility] [place] [address] Daniel Parsons MD [address] [place] [address] documented as of this encounter Goals Goal [...] documented as of this encounter Care Teams Exchange Operator Relationship Specialty Start [place] [address] PCP - General Family Medicine 07/26/21 documented as of this encounter
--- OUTSIDE RECORDS SUMMARY | 2024-10-12 15:11 | XMS_ITS | Encounter Summary ---
Author Organization Healthcare Address [address] [place] [address] Care Team Providers Care Picking Crew Supervisor Name Role Phone Pcp, No Primary Care Provider Unavailabl e Encounter Details Date Type Department Care Team (Late st Contact Info) Description 09/30/2024 Patient Outreach [facility] Specialties [address] [place] [address] Tracee Negrete Social History Tobacco Use Types [...] often do you attend chur ch or voodoo services? Patient unable to answer 05/07/2024 Do you belong to any clubs o r organizations such as orthodox groups, unions, fraternal or athletic groups, or [...] Never 07/31/2024 How often do you attend orthodox or voodoo serv ices? Never 07/31/2024 Do you belong to any clubs o r organizations such as orthodox groups, unions, fraternal or athletic groups, or [...] care, and heating? Very hard 07/31/2024 [facility] [place] of Occupat ional Health - Occupational Stress [...] time in the past 12 m [facility], were you homeless or living in a penitentiary (including now)? Yes 07/31/2024 CAGE ASSESSMENT Answer [...] drink first t terri in the morning (EYE-SOCIAL SCIENCE RESEARCH ASSISTANT) to steady your nerves or to [...] * Progress Notes - Tracee Negrete - 09/30/2024 4:24 PM EDT FE moved pt. appointment to 10/13/2024 @ 8:00am. LTC scheduled next f/u attempt for 10/10/2024 to call/text pt. FE appointment reminder. documented in this encounter Plan of Treatment Upcoming Encounters Date Type Department Care Team (Late st Contact Info) Description 10/13/2024 8:00 AM EDT Office Visit [place] [facility] [address] [place] [address] 12/30/2024 3:40 PM EST Office Visit [facility] [place] [address] [facility] [place] [address] Daniel Parsons MD [address] [place] [address] documented as of this encounter Goals Goal [...] documented as of this encounter Care Teams Picking Crew Supervisor Relationship Specialty Start Date End Date Pcp, [place] [address] PCP - General Family Medicine 07/26/21 documented as of this encounter
--- OUTSIDE RECORDS SUMMARY | 2024-10-12 15:11 | XMS_ITS | Encounter Summary ---
Author Organization Healthcare Address [address] [place] [address] Care Team Providers Care Visual Inspector Name Role Phone Pcp, No Primary Care Provider Unavailabl e Encounter Details Date Type Department Care Team (Late st Contact Info) Description 08/04/2024 Lab Requisition [facility] [address] [place] [address] Popeye Fernando MD [address] [facility] [address] [place] [id number] Encounter for general adult medical examination without [...] answer 05/07/2024 How often do you attend [facility] or buddhism services? Patient unable to answer 05/07/2024 Do you belong to any clubs o r organizations such as sabianist groups, unions, fraternal or athletic groups, or [...] Never 07/31/2024 How often do you attend sabianist or buddhism serv ices? Never 07/31/2024 Do you belong to any clubs o r organizations such as sabianist groups, unions, fraternal or athletic groups, or [...] medical care, and heating? Very hard 07/31/2024 [facility] of Occupat ional [facility] - Occupational Stress Questionnaire Answer Date Recorded [...] in the past 12 m [facility], were you homeless or living in a fdc (including now)? Yes 07/31/2024 CAGE ASSESSMENT Answer [...] drink first t terri in the morning (EYE-DUCT LAYER HELPER) to steady your nerves or to get rid of a hangover? 0 03/16/2022 CAGE Questionnaire Score 0 023 Utilities Answer Date Recorded In the past 12 months has e [employer], gas, oil, or water [employer] threatened to shut off services in your home? No 07/31/2024 Sex and Gender Information Value Date Recorded Sex Assigned at Not on file Legal Sex Male 7:46 PM EDT Gender Identity Not on file Sexual Orientation Not on file documented as of this encounter Functional Status * Calculated C-SSRS Risk Score (Lifetime/Recent) Answer Date of Assessment Author No Risk Indicated 08/06/2024 8:00 PM EDT Salazar Barrett RN * Question Answer Date of Assessment Author 1. Wish to be (Past 1 Month) No 08/06/2024 8:00 PM EDT Yaneth De Santiago, CAMILO 2. Non-Specific Active Suicidal Thoughts (Past 1 Month) No 08/06/2024 8:00 PM EDT Yaneth De Santiago, CAMILO 6. Suicidal Behavior (Lifetime) No 08/06/2024 8:00 PM EDT Yaneth De Santiago, CAMILO documented as of this encounter Plan of Treatment Upcoming Encounters Date Type Department Care Team (Late st Contact Info) Description 10/13/2024 8:00 AM EDT Office Visit [place] [facility] [address] [place] [address] 12/30/2024 3:40 PM EST Office Visit [facility] [place] [address] [facility] [place] [address] Daniel Parsons MD [address] [place] [address] documented as of this encounter Goals Goal Patient Goal Type Associated Problems Recent Progress Patient-Stated? Author Autogenerat ed Goal Care Plan Autogenerated Problem No Sergo Pedroza documented as of this encounter Procedures Procedure Name Priority Date/Time Associated Diagnosis Comments MULTI DRUG RESISTANCE TEST Routine 08/04/2024 5:45 PM EDT Encounter for general adult medical examination without abnormal findings documented in this encounter Results * (ABNORMAL) Multi Drug Resistance Test (08/04/2024 5:45 PM EDT) Culture Methicillin-Resist ant Staphylococcus aureus(AA) 08/06/2024 7:10 AM EDT [facility] Comment:Previously isolated, still present in culture. Swab (Nares and Annetta Rectal) 08/04/2024 5:45 PM EDT 08/04/2024 6:14 PM EDT Narrative [facility] - 08/06/2024 7:10 AM EDT This test was developed and its performance characteristics determined by the [facility]. Although the media is FDA-approved, it is not FDA-approved for all specimen types submitted. The FDA has determined that such clearance or approval is not necessary. This test is used for surveillance purposes. It should not be regarded as investigational or for research. The [facility] is certified under the Clinical Laboratory Improvement Amendments of 1988 (CLIA-88) as qualified to perform high complexity clinical laboratory testing. Popeye Fernando MD LAB MICROBIOLOGY - GEN ERAL ORDERABLES Final Result [facility] [address] [place] [address] documented in this encounter Visit Diagnoses Diagnosis Encounter for general adult medical examination without abnormal findings documented in this encounter Additional Health Concerns Active Problems Noted Date Diagnosed Date Autogenerated Problem 05/13/2024 Infection Onset Date Last Indicated Resolved Time MRSA 05/06/2024 08/04/2024 COVID-19 Rule-Out 08/17/2024 08/17/2024 08/18/2024 10:49 AM EDT Assessment Noted Time A Body Mass Index follow-up plan has been documented for the patient 05/24/2024 1:05 PM EDT documented as of this encounter Care Teams Visual Inspector Relationship Specialty Start Date End Date Pcp, Sumaya [address] [place] [address] PCP - General Family Medicine 07/26/21 documented as of this encounter
--- OUTSIDE RECORDS SUMMARY | 2024-10-12 15:11 | XMS_ITS ---
Author Organization [facility] Address [address] [place] [id number] Care Team Providers Care Commercial Pest Control Representative Name Role Phone Pcp, No Primary Care Provider Unavailabl e Hepatitis C Program Status:Active (Active) Start date:03/15/2022 Enrollment date:03/15/2022 Enrollment reason:HCV Continued Care and Services Coordination
--- NOTE | 2024-10-12 15:17 | ED_ITS ---
Discharge Plan Disposition Patient Disposition: Xfer Short-Term Hosp Referrals Follow up/Referrals: Provider,Referral, [Primary Care Provider, Medical] - See instructions Clinical Impressions Clinical Impression: Hyperkalemia Stand Alone Forms Stand Alone Forms: Transfer Record - ED Instructions Patient Instructions: DI for Diarrhea and Traveler's Diarrhea -- Adult, DI for Diarrhea and Traveler's Diarrhea -- Child, DI for Nausea -- Adult, DI for Nausea -- Child Print Language Print Language: Estonian Discharge ED Provider: Jose Quinones General Adult HPI General Chief complaint: Nausea/Vomiting/Diarrhea Stated complaint: diarrhea, vomiting , fever Time Seen by Provider: 10/12/24 15:17 Mode of Arrival: Wheelchair Source of Information: Patient and Relative Description of Symptoms (Recalled from ER Triage Doc. by RN): pt has end stage kidney failure and has missed dialysis twice this week. abd is visibly distended and pt missed his appt for that as well. pt looks unwell. is jaundiced. frail. incintinent History of Present Illness HPI narrative: Patient is a 44-year-old gentleman with a past medical history of end-stage renal disease on Sunday dialysis, heart failure, liver disease who comes in today with concern for abdominal pain, diarrhea and vomiting. Patient denies any blood in his vomit or in his stools. Patient denies any fevers chest pain but does feel short of breath. Patient states that he was scheduled for a paracentesis tomorrow at . Has missed his and Sunday dialysis due to his diarrhea. Patient states that he has never had a paracentesis before. Patient reports that he was recently admitted to the hospital was discharged 1 month ago. Patient was given multiple medications that he has not been taking over the last 3 weeks. Patient also has a history of IV drug use is been on Suboxone but has not been taking them for the last 3 weeks. Related Data Allergies Allergy/AdvReac Type Severity Reaction Status Date / Time Erythromycin Allergy Unknown NA-NAUSEA/V Uncoded 01/23/17 15:32 OMITING PFSH PFSH Disclaimer: The information contained in this section may have been updated after the patient was seen, as this information can be updated by other users. Social History Smoking Status: Current every day smoker alcohol intake: never current occupational status: unemployed Travel in the last 8 weeks?: None ROS Obtained: Yes All systems reviewed & no additional complaints except as documented and Yes Systems reviewed as appropriate & no additional complaints except as documented Physical Exam General General appearance: alert and in no apparent distress Head Head exam: atraumatic, normocephalic and normal inspection Eye Eye exam: Present normal appearance, PERRL, EOMI and other (Mild conjunctival pallor); Absent scleral icterus ENT ENT exam: Present normal exam and normal external ear exam Neck Neck exam: Present normal inspection and full ROM Chest Chest inspection: Present normal inspection and symmetric chest wall rise Respiratory Respiratory exam: Present normal lung sounds bilaterally; Absent respiratory distress or wheezes Cardiovascular Cardiovascular exam: Present normal rhythm, tachycardia and normal heart sounds Abdominal Exam Abdominal exam: Present soft, distention and tenderness (Diffuse); Absent guarding or rebound Extremities Exam Extremities exam: Present normal inspection and full ROM Back Exam Back exam: Present normal inspection and full ROM Neurological Exam Neurological exam: Present alert and oriented X3 Psychiatric Psychiatric exam: Present normal affect and normal mood Skin Skin exam: Present warm and dry Medical Decision Making Medical Records Medical records reviewed: Yes I reviewed the patient's medical records. Screening: Per USPSTF and CDC recommendations, given the prevalence of disease in our region, it is our hospital?s policy to screen for HIV and viral Hepatitis for all patients aged 18 and over and those with ongoing risk factors. Christopher Inquiry Pt receiving controlled substance: No Vital Signs: 10/12/24 15:10 10/12/24 15:30 10/12/24 16:00 Temperature 98.5 F Temperature Source Oral Pulse Rate 106 H 105 H Pulse Rate [Right] 102 H Respiratory Rate 22 Blood Pressure 172/129 H 157/128 H Blood Pressure [Right Arm] 156/117 H Blood Pressure Mean 143 Blood Pressure Mean [Right Arm] 130 02 Sat by Pulse Oximetry 97 100 100 Oxygen Delivery Method 10/12/24 16:30 10/12/24 17:00 10/12/24 18:03 Temperature 98.1 F Temperature Source Pulse Rate 114 H 107 H 110 H Pulse Rate [Right] Respiratory Rate 30 H Blood Pressure 142/114 H 157/124 H 157/107 H Blood Pressure [Right Arm] Blood Pressure Mean Blood Pressure Mean [Right Arm] 02 Sat by Pulse Oximetry 99 98 Oxygen Delivery Method Room Air Lab Data Lab Results 10/12/24 15:32: WBC 10.9 H, RBC 3.52 L, Hgb 9.4 L, Hct 31.0 L, MCV 88.1, MCH 26.7 L, MCHC 30.3 L, RDW 18.6 H, Plt Count 297, MPV 10.0, Neut % (Auto) 77.9, Lymph % (Auto) 14.4, Taylor % (Auto) 6.9, Eos % (Auto) 0.0 L, Baso % (Auto) 0.3, N eut # (Auto) 8.5 H, Lymph # (Auto) 1.6, Taylor # (Auto) 0.8, Eos # (Auto) 0.0, Baso # (Auto) 0.0, PT 18.8 H, INR 1.77 H, Sodium 141, Potassium 7.3 H*, Chloride 103, Carbon Dioxide 16 L, Anion Gap 29.3 H, BUN 84 H, Creatinine 7.80 H, Estimated Creat Clear 13, Estimated GFR 8 L*, Est GFR ( Amer) 9 L*, Glucose 98, Calcium 9.4, Phosphorus 10.9 H, Magnesium 2.0, Total Bilirubin 0.8, AST 2245 H*, ALT 1586 H*, Alkaline Phosphatase 368 H, Ammonia < 9 L, Total Creatine Kinase 194 H, Troponin I 0.11 H, NT-Pro-B Natriuret Pep > 88809 H, T otal Protein 8.6 H, Albumin 4.3, Globulin 4.3 H, Albumin/Globulin Ratio 1.0 L, L ipase 451 H, Salicylates 12.7, Acetaminophen < 10 L 10/12/24 16:21: Chlamy pneumoniae PCR Not detected, Adenovirus (PCR) Not detected, B. pertussis DNA (PCR) Not detected, Coronavirus OC43 (PCR) Not detected, Coronavirus HKU1 (PCR) Not detected, Coronavirus 229E (PCR) Not detected, SARS-CoV-2 (PCR) Not detected, Coronavirus NL63 (PCR) Not detected, Human Metapneumovir PCR Not detected, Influenza A (H1) PCR Not detected, Influ A (H1N1/09) PCR Not detected, Influenza A (H3) PCR Not detected, Influenza Type A (PCR) Not detected, Influenza Type B (PCR) Not detected, M. pneumoniae (PCR) Not detected, Parainfluenza 1 (PCR) Not detected, Parainfluenza 2 (PCR) Not detected, Parainfluenza 3 (PCR) Not detected, Parainfluenza 4 (PCR) Not detected, RSV (PCR) Not detected, Entero/Rhino (PCR) Not detected 10/12/24 16:37: VBG pH 7.32, VBG pCO2 36.6, VBG pO2 20.6 L, VBG HCO3 18.2 L, VBG Total CO2 19.3 L, VBG O2 Saturation 20.7 L, VBG Base Excess -8.0 L, VBG Lactic Acid 4.8 H 10/12/24 17:33: POC Glucose 124 H 10/12/24 15:32 10/12/24 15:32 Orders (Tests/Meds): ED MEDICATIONS Discontinued Medications Generic Name Dose Route Start Last Admin Trade Name Freq PRN Reason Stop Dose Admin Albuterol Sulfate 20 mg 10/12/24 16:19 10/12/24 17:07 Albuterol 0.083% 2.5 Mg/3 Ml Neb IH 10/12/24 16:20 20 mg ONCE ONE Administration Dextrose 50 ml 10/12/24 16:17 10/12/24 17:05 Dextrose 50% 50ml Syringe (Crash Cart) IVP 10/12/24 16:18 50 ml ONCE ONE Administration Pantoprazole Sodium 80 mg/ 100 mls @ 100 mls/hr 10/12/24 15:25 10/12/24 17:17 Sodium Chloride IV 10/12/24 16:24 Infused ONCE ONE Infusion Ceftriaxone Sodium 2 gm/ 100 mls @ 200 mls/hr 10/12/24 16:30 10/12/24 17:15 Sodium Chloride IV 10/22/24 16:29 Not Given Q24H PARESH Octreotide Acetate 500 mcg/ 255 mls @ 25.5 mls/hr 10/12/24 16:31 10/12/24 18:07 Sodium Chloride IV 10/13/24 02:30 Infused .Q10H ONE Infusion 50 MCG/HR Calcium Gluconate/Sodium Chloride 1 gm in 50 mls @ 50 mls/hr 10/12/24 17:01 10/12/24 17:13 Calcium Gluconate 1,000mg/50ml Nacl Premix IV 10/12/24 18:00 Not Given ONCE ONE Calcium Gluconate/Sodium Chloride 2 gm in 100 mls @ 50 mls/hr 10/12/24 17:02 10/12/24 18:08 Calcium Gluconate 2,000mg/100ml Nacl Premix IV 10/12/24 19:01 Infused ONCE ONE Infusion Piperacillin Sod/Tazobactam 100 mls @ 200 mls/hr 10/12/24 17:15 10/12/24 18:08 Sod 4.5 gm/ Sodium Chloride IV 10/12/24 17:44 Infused ONCE ONE Infusion Vancomycin/PEG/NADA/Lysine/Water 1.5 gm in 300 mls @ 150 mls/hr 10/12/24 17:30 Vancomycin 1.5gm/300ml (Peg) Premix IV 10/12/24 19:29 ONCE ONE Insulin Human Regular 10 unit 10/12/24 16:17 10/12/24 17:05 Insulin Human Regular 100 Units/Ml 10ml Vial IVP 10/12/24 16:18 10 unit ONCE ONE Administration Iopamidol 80 ml 10/12/24 16:50 10/12/24 16:52 Iopamidol-370 (76%);100ml Bottle IV 10/12/24 16:51 80 ml ONCE ONE Administration Miscellaneous 1 each 10/12/24 17:15 10/12/24 17:16 Vancomycin Consult Request NOTAPPLIC 11/11/24 17:14 1 each CONSULT PHARMACY PARESH Administration Morphine Sulfate 4 mg 10/12/24 16:39 10/12/24 16:41 Morphine 4mg/Ml Syringe IV 10/12/24 16:40 4 mg ONCE ONE Administration Octreotide Acetate 50 mcg 10/12/24 16:32 10/12/24 17:08 Octreotide 50mcg/Ml 1ml Amp IV 10/12/24 16:33 50 mcg ONCE ONE Administration Ondansetron HCl 4 mg 10/12/24 15:29 10/12/24 16:10 Ondansetron 4mg/2ml Vial IV 10/12/24 15:30 4 mg ONCE ONE Administration Ondansetron HCl 4 mg 10/12/24 16:30 10/12/24 17:18 Ondansetron 4mg/2ml Vial IV 10/12/24 16:31 Not Given ONCE ONE Sodium Chloride 10 ml 10/12/24 16:50 10/12/24 16:52 Sodium Chloride 0.9% 10ml Syr (Rad Only) IV 10/12/24 16:51 10 ml ONCE ONE Administration Sodium Chloride 50 ml 10/12/24 16:50 10/12/24 16:52 0.9 % Sodium Chloride 50 Ml Vial IV 10/12/24 16:51 50 ml ONCE ONE Administration ORDERS Category Date Time Status CT angio abdomen pelvis Stat Cat Scan 10/12/24 16:33 Completed CTA Chest [CT angio chest PE protocol] Stat Cat Scan 10/12/24 16:33 Completed CXR --portable [XR chest portable] Stat Exams 10/12/24 15:26 Completed POCUS Point of Care (ER Only) Stat Exams 10/12/24 15:25 Completed Acetaminophen Stat Lab 10/12/24 15:32 Completed Ammonia Stat Lab 10/12/24 15:32 Completed BNP [NT Pro Brain Natriuretic Pep.] Stat Lab 10/12/24 15:32 Completed CBC w/Auto Diff [Complete Blood Count Auto Diff] Stat Lab 10/12/24 15:32 Completed CK [Creatine Kinase] Stat Lab 10/12/24 15:32 Completed CMP [Comprehensive Metabolic Panel] Stat Lab 10/12/24 15:32 Completed Full Resp Panel w/COVID ([facility]) Routine Lab 10/12/24 16:21 Completed Hepatitis Panel Stat Lab 10/12/24 15:32 Received INR [Prothrombin Time INR] Stat Lab 10/12/24 15:32 Completed Lipase Stat Lab 10/12/24 15:32 Completed MAG [Magnesium] Stat Lab 10/12/24 15:32 Completed POC Glucose,Bedside Routine Lab 10/12/24 17:33 Completed Phosphorous Stat Lab 10/12/24 15:32 Completed Salicylate Stat Lab 10/12/24 15:32 Completed Trop I [Troponin I] Stat Lab 10/12/24 15:32 Completed Blood Culture Stat Micro 10/12/24 17:05 Received VBG [Venous Blood Gas] Stat RT 10/12/24 16:37 Completed EKG Request [ECG Request] Stat Y 10/12/24 15:18 Completed Medical Decision Narrative: Patient is a 44-year-old gentleman with a past medical history of end-stage renal disease on Sunday dialysis, liver disease as well as heart failure who presented to the emergency department with concern for abdominal pain, shortness of breath, diarrhea and vomiting. On arrival, patient was tachycardic but otherwise hemodynamically stable. Differential included but not limited to: Gastroenteritis, SBP, peptic ulcer disease, bleeding varices, pulmonary embolism, ACS/AR, heart failure exacerbation, amongst others. On exam, patient had a mildly distended and tender abdomen, patient had mild jaundice and mild conjuctival pallor. Exam was otherwise unremarkable. Initially, bedside ultrasound was performed and showed large volume ascites, bilateral pleural effusions as well as significantly reduced EF. No pericardial effusion was noted. Patient's labs were reviewed and interpreted by myself and showed:CBC showed no leukocytosis, hemoglobin was stable. INR elevated at 1.77. VBG showed no acidosis but did show elevated lactate at 4.8. CMP was notable for potassium of 7.3, creatinine of 7.8, anion gap of 29. Patient's LFTs were significantly elevated with an AST of 2245, ALT of 1586, alk phos of 368. CK was normal at 194. Initial troponin elevated at 0.11. BNP greater than 30,000. Lipase elevated at 451. Ammonia unremarkable. Bilirubin normal. Tylenol and aspirin levels were normal. Chest x-ray was obtained which on my interpretation as well as radiology there was concern for possible free air under the diaphragm on the right. Patient developed acute onset severe chest pain therefore emergent CT chest and CT abdomen were obtained concerning for possible perforated peptic ulcer. Patient also had an episode of hematemesis in the emergency department patient was given Zofran x 2. Patient was given a bolus of octreotide as well as started on an octreotide drip due to unknown hx of esophageal varices. Patient was given 80 of IV Protonix. Patient was given 4 mg of morphine for pain control. EKG was obtained at this time which showed no peaked T waves no acute ST or T wave changes concerning for ischemia. Patient was given hyperkalemia treatment in the emergency department with 2 g of IV gluconate, 10 of IV insulin as well as 1 amp of D50. Patient was given 20 mg of albuterol. Initially, plan was to do a diagnostic paracentesis to rule out SBP however given concern for free air I opted to hold on diagnostic tap at this time until CT scans were obtained. CT scans were reviewed and interpreted by myself and CT chest showed concern for pleural effusion possible pneumonia but no evidence of free air. Radiology did report a right sided pulmonary embolism as well. CT abdomen showed large volume ascites but no concern for other acute pathology. Patient would require emergent dialysis given elevated creatinine, electrolyte abnormalities and given his significantly elevated LFTs, I felt that patient required transfer to the [facility]. Diagnostic paracentesis was going to be performed after CT scan showed no free air but after discussion with [facility], they stated this would be done when admitted and could be held off at this time. Patient was started on broad-spectrum antibiotics including vancomycin and Zosyn. Patient had 2 large-bore IVs and was transferred in stable condition via helicopter to the [facility] for emergent dilaysis, electrolyte abnormalities, decompensated cirrhosis and concern for UGIB. Patient was HDS at time of transfer. Critical Care Critical Care Time Critical Care Time: Yes Attestation: On 10/12/24, the high probability of a clinically significant, sudden or life threatening deterioration of the following system(s) required my full and direct attention, intervention and personal management. The time I documented below is in addition to time spent performing reported procedures but includes the following listed in this critical care notation. Total Time Total Critical Care Time: 75
--- NOTE | 2024-10-12 15:18 | ECG_ITS ---
APPROVED REPORT Exam: Resting ECG HR:106 bpm ECG Measurements Heart Rate 106 AXES IN 246 P 255 QRSd 106 QRS -22 QT 383 T 69 QTc 445 Conclusion ECTOPIC ATRIAL TACHYCARDIA WITH FIRST DEGREE AV BLOCK POSSIBLE LEFT ATRIAL ENLARGEMENT [-0.1mV P-WAVE IN V1/V2] BORDERLINE LEFT AXIS DEVIATION [QRS AXIS < -20] NONSPECIFIC T-WAVE ABNORMALITY ABNORMAL ECG UNCONFIRMED REPORT Electronically signed by : MARIA TADEO, 10/13/2024 23:03:45
--- NOTE | 2024-10-12 15:20 | PC.NURSE ---
pt is visibly unwell. states he has missed his last 2 dialysis appts as well as his appt to have fluid drained off of his abdomen. he also has not taken any of his home medications in a few weeks. Dr. Berry @ bedside
--- NOTE | 2024-10-12 15:26 | XR_ITS ---
PROCEDURE INFORMATION: Exam: XR Chest Exam date and time: 10/12/2024 3:42 PM Age: 44 years old Clinical indication: Shortness of breath TECHNIQUE: Imaging protocol: Radiologic exam of the chest. Views: 1 view. COMPARISON: No relevant prior studies available. FINDINGS: Tubes, catheters and devices: Double-lumen catheter terminates in the right atrium Lungs: Unremarkable. No consolidation. Pleural spaces: Unremarkable. No pleural effusion. No pneumothorax. Heart/Mediastinum: Cardiomegaly Bones/joints: Unremarkable. Intraperitoneal space: Lucency under the right hemidiaphragm may indicate free air. IMPRESSION: Lucency under the right hemidiaphragm may indicate free air.
[2024-10-12 15:30] VITALS: BP 172/129; PULSE 106; O2SAT 100
[2024-10-12 15:40] LABS: Hematocrit 31.0 % (42.0-52.0); Hemoglobin 9.4 g/dL (14.1-18.0); Immature Granulocytes % 0.5 %; Mean Corpuscular HGB Conc 30.3 g/dL (31.8-35.4); Mean Corpuscular Hemoglobin 26.7 pg (27.0-31.2); Mean Corpuscular Volume 88.1 fl (80-94); Nucleated Red Blood Cells % 0.4 %; Platelet Count 297 K/mm3 (142-424); Red Blood Count 3.52 M/mm3 (4.60-6.20); Red Cell Distribution Width-SD 57.5 fL; White Blood Count 10.9 K/mm3 (4.8-10.8)
[2024-10-12 15:47] LABS: Albumin Level 4.3 g/dl (3.5-5.0); Chloride 103 mmol/L (98-107)
[2024-10-12 15:48] LABS: Sodium 141 mmol/L (136-145)
[2024-10-12 15:50] LABS: Carbon Dioxide 16 mmol/L (22.0-30.0); Creatinine Clearance Estimated 13 mL/min (50-200); Estimated Glomerular Filt Rate 8 ml/min (>60); GFR (African American) 9 ML/MIN (>60)
[2024-10-12 15:51] LABS: Alkaline Phosphatase 368 U/L (38-126); Bilirubin,Total 0.8 mg/dl (0.2-1.3); Calcium 9.4 mg/dl (8.4-10.2); Creatine Kinase 194 U/L (55-170); Glucose 98 mg/dl (74-100); Magnesium 2.0 mg/dl (1.6-2.3); Phosphorous 10.9 mg/dl (2.5-4.5); Total Protein,Serum 8.6 g/dl (6.3-8.2)
[2024-10-12 15:52] LABS: Ammonia < 9 umol/L (9-30)
[2024-10-12 15:53] LABS: Potassium 7.3 mmoL/L (3.5-5.1)
[2024-10-12 15:54] LABS: Blood Urea Nitrogen 84 mg/dl (9-20)
--- NOTE | 2024-10-12 15:55 | PC.NURSE ---
Sent a fax to requesting medical records for this patient we are awaiting them now.
[2024-10-12 16:00] VITALS: BP 157/128; PULSE 105; O2SAT 100
[2024-10-12 16:01] LABS: Alanine Aminotransferase 1586 U/L (12-78); Albumin/Globulin Ratio 1.0 (1.1-1.8); Anion Gap 29.3 mEq/L (5-15); Creatinine,Serum 7.80 mg/dl (0.66-1.25); Globulin 4.3 g/dL (1.3-3.2)
[2024-10-12 16:03] LABS: Troponin I 0.11 ng/ml (0.00-0.034)
[2024-10-12] MEDS: ONDANSETRON 4MG/2ML VIAL 4 MG IV (16:10)
[2024-10-12] MEDS: PANTOPRAZOLE SODIUM 80 MG in 0.9 % SODIUM CHLORIDE 100 ML 100 MG IV (16:10)
[2024-10-12 16:14] LABS: INR 1.77 (0.9-1.1); Prothrombin Time 18.8 seconds (10.1-12.5)
[2024-10-12 16:29] LABS: Adenovirus,PCR Not Detected (NotDetected); Chlamydophila Pneumoniae, PCR Not Detected (NotDetected); Coronavirus 19, PCR Not Detected (NotDetected); Coronovirus HKU1,PCR Not Detected (NotDetected); Influenza A, PCR Not Detected (NotDetected); Influenza AH1, 2009 Not Detected (NotDetected); Influenza AH1, PCR Not Detected (NotDetected); Influenza AH3,PCR Not Detected (NotDetected); Influenza B, PCR Not Detected (NotDetected); Mycoplasma Pneumoniae, PCR Not Detected (NotDetected); Parainfluenza 1, PCR Not Detected (NotDetected); Parainfluenza 2, PCR Not Detected (NotDetected); Parainfluenza 3, PCR Not Detected (NotDetected); Parainfluenza 4, PCR Not Detected (NotDetected)
[2024-10-12 16:30] VITALS: BP 142/114; PULSE 114; O2SAT 99
[2024-10-12 16:31] LABS: Salicylate 12.7 mg/dL (2.0-20.0)
--- NOTE | 2024-10-12 16:33 | CT_ITS ---
PROCEDURE INFORMATION: Exam: CTA Chest With Contrast Exam date and time: 10/12/2024 4:50 PM Age: 44 years old Clinical indication: Shortness of breath; Additional info: R/O dissection TECHNIQUE: Imaging protocol: Computed tomographic angiography of the chest with contrast. Exam focused on the arteries. 3D rendering (Not supervised by radiologist): MIP and/or 3D reconstructed images were created by the technologist. Radiation optimization: All CT scans at this facility use at least one of these dose optimization techniques: automated exposure control; mA and/or kV adjustment per patient size (includes targeted exams where dose is matched to clinical indication); or iterative reconstruction. Contrast material: ISOVUE; Contrast volume: 80 ml; Contrast route: INTRAVENOUS (IV); COMPARISON: CR XR CHEST PORTABLE 10/12/2024 3:42 PM FINDINGS: Pulmonary arteries: Small right pulmonary embolus Filling defect in a branch of the descending right pulmonary artery series 5, image 45 and 46. Aorta: No aneurysm of the aorta. No dissection of the aorta. Lungs: Consolidation in the left lower lobe. Mild opacities in the right lower lobe. Findings may represent atelectasis or pneumonia. Pleural spaces: Moderate left pleural effusion . Heart: Cardiomegaly Lymph nodes: Unremarkable. No enlarged lymph nodes. Bones/joints: Unremarkable. No acute fracture. Soft tissues: Edema in the subcutaneous fat IMPRESSION: 1. Small right pulmonary embolus Filling defect in a branch of the descending right pulmonary artery series 5, image 45 and 46. 2. No aneurysm of the aorta. 3. No dissection of the aorta. 4. Moderate left pleural effusion . 5. Consolidation in the left lower lobe. Mild opacities in the right lower lobe. Findings may represent atelectasis or pneumonia.
--- NOTE | 2024-10-12 16:33 | CT_ITS ---
PROCEDURE INFORMATION: Exam: CTA Abdomen and Pelvis With Contrast Exam date and time: 10/12/2024 4:50 PM Age: 44 years old Clinical indication: Abdominal pain; Generalized TECHNIQUE: Imaging protocol: Computed tomographic angiography of the abdomen and pelvis with contrast. Exam focused on the arteries. 3D rendering (Not supervised by radiologist): MIP and/or 3D reconstructed images were created by the technologist. Radiation optimization: All CT scans at this facility use at least one of these dose optimization techniques: automated exposure control; mA and/or kV adjustment per patient size (includes targeted exams where dose is matched to clinical indication); or iterative reconstruction. Contrast material: ISOVUE; Contrast volume: 80 ml; Contrast route: INTRAVENOUS (IV); COMPARISON: CT ANGIO CHEST PE PROTOCOL 10/12/2024 4:50 PM FINDINGS: Aorta: No aortic aneurysm. No aortic dissection. Celiac trunk and mesenteric arteries: No occlusion or significant stenosis. Renal arteries: No occlusion or significant stenosis. Right iliac arteries: No occlusion or significant stenosis. Left iliac arteries: No occlusion or significant stenosis. Liver: Liver is decreased in size and lobulated consistent with cirrhosis.. Suboptimal evaluation. No definite mass Gallbladder and biliary ducts: The gallbladder is unremarkable Pancreas: Suboptimal evaluation. No definite mass . No ductal dilation. Spleen: Unremarkable. No splenomegaly. Adrenal glands: Unremarkable. No mass. Kidneys and ureters: Bilateral renal atrophy . Suboptimal evaluation. No definite mass Stomach and bowel: Unremarkable. No obstruction. No mucosal thickening. Appendix: No evidence of appendicitis. Intraperitoneal space: No pneumoperitoneum. Large amount of ascites in the abdomen and pelvis. Lymph nodes: Unremarkable. No enlarged lymph nodes. Urinary bladder: Unremarkable. No mass. Reproductive: Unremarkable as visualized. Bones/joints: No acute fracture. Soft tissues: Edema in the subcutaneous fat IMPRESSION: 1. No pneumoperitoneum. 2. Large amount of ascites in the abdomen and pelvis. 3 suboptimal evaluation the organs due to extensive ascites
[2024-10-12 16:35] LABS: Acetaminophen < 10 ug/ml (10-30)
[2024-10-12 16:36] LABS: Aspartate Amino Transferase 2245 U/L (17-59)
[2024-10-12] MEDS: MORPHINE 4MG/ML SYRINGE 4 MG IV (16:41)
[2024-10-12 16:48] LABS: Lipase 451 U/L (23-300)
[2024-10-12] MEDS: IOPAMIDOL-370 (76%);100ML BOTTLE 80 ML IV (16:52)
[2024-10-12] MEDS: SODIUM CHLORIDE 0.9% 10ML SYR (RAD ONLY) 10 ML IV (16:52)
[2024-10-12] MEDS: 0.9 % SODIUM CHLORIDE 50 ML VIAL IV (16:52)
--- NOTE | 2024-10-12 16:59 | PC.NURSE ---
called for flight status
[2024-10-12 17:00] VITALS: BP 157/124; PULSE 107; O2SAT 98
--- NOTE | 2024-10-12 17:01 | PC.NURSE ---
[facility] called. Will call back.
[2024-10-12] MEDS: INSULIN HUMAN REGULAR 100 UNITS/ML 10ML VIAL 10 UNIT IVP (17:05)
[2024-10-12] MEDS: DEXTROSE 50% 50ML SYRINGE (CRASH CART) 50 ML IVP (17:05)
--- NOTE | 2024-10-12 17:05 | PC.NURSE ---
Dr. Berry speaking with [employer].
[2024-10-12] MEDS: ALBUTEROL 0.083% 2.5 MG/3 ML NEB 20 MG IH (17:07)
[2024-10-12] MEDS: OCTREOTIDE 50 MCG/ML IV (17:08)
[2024-10-12 17:13] LABS: VBG HCO3 18.2 mmol/L (23-30); VBG PCO2 36.6 mmol/L (35-51); VBG PH 7.32 mmol/L (7.31-7.41); VBG PO2 20.6 mmol/L (28-40)
[2024-10-12 17:16] LABS: Lactate Venous 4.8 mmol/L (0.4-2.0)
[2024-10-12] MEDS: VANCOMYCIN CONSULT REQUEST 1 EACH NOTAPPLIC (17:16)
[2024-10-12] MEDS: CALCIUM GLUC IN NACL, ISO-OSM 2 GM/100 ML BAG IV (17:16)
[2024-10-12] MEDS: PIPERACILLIN/TAZO 4.5 GM in 0.9 % SODIUM CHLORIDE 100 ML IV (17:19)
[2024-10-12 17:23] LABS: NT Pro Brain Natriuretic Pep. > 30000 pg/mL (0-125)
--- NOTE | 2024-10-12 17:32 | PC.NURSE ---
REPORT CALLED TO Eda @ [facility]
[2024-10-12 17:41] LABS: POC Glucose,Bedside 124 gm/dL (70-110)
--- NOTE | 2024-10-12 17:45 | PC.NURSE ---
PT TOLERATING MEDICATIONS WELL. REPORT GIVEN TO [employer]. PT IS STABLE UPON TRANSFER.
[2024-10-12 18:03] VITALS: BP 157/107; PULSE 110; RESP 30; TEMP 36.7; O2SAT 95
[2024-10-12 21:15] LABS: Reflex Lactic Add Lactic Reflex
== END 2024-10-12 18:06 | disposition short-term general hospital (02) ==
PROVIDERS: Student in an Organized Health Care Education/Training Program; Emergency Provider Emergency Medicine
DX: I26.99 Other pulmonary embolism without acute cor pulmonale (principal); R10.84 Generalized abdominal pain; E87.5 Hyperkalemia; N18.6 End stage renal disease; R19.7 Diarrhea, unspecified; R11.2 Nausea with vomiting, unspecified; F17.200 Nicotine dependence, unspecified, uncomplicated
CPT/HCPCS: 0223U; 71045; 71275; 74174; 80053; 80074; 80329; 82140; 82550; 82803; 82962; 83690; 83735; 83880; 84100; 84484; 85025; 85610; 87040; 96365; 96366; 96367; 96375; 99285; 99291; J0612; J2270; J2354; J2405; J2470; J2543; J7050; Q9967

== ENCOUNTER 2024-11-07 08:45 | Outpatient (CLI) | payer OTHER, SELFPAY ==
--- OUTSIDE RECORDS SUMMARY | 2024-09-24 21:32 | XMS_ITS | Encounter Summary ---
Author Organization Healthcare Address [address] [place] [address] Care Team Providers Care Terrazzo Worker Name Role Phone Pcp, No Primary Care Provider Unavailabl e Reason for Visit * Reason Comments Abnormal Lab Encounter Details Date Type Department Care Team (Late st Contact Info) Description 09/24/2024 9:32 PM EDT - 09/24/2024 11:03 PM EDT Emergency [facility] S Emergency Department [address] [place] [address] ESRD on dialysis ([facility]) (Primary Dx); Chronic anemia Discharge Disposition: Home or Self Care Social History Tobacco Use Types Packs/Day Years Used Date Smoking Tobacco: Every Day Cigarettes 1 17.8 Started: 2007 Passive Smoke Exposure: Past Smokeless [...] 05/07/2024 How often do you attend chur ch or pentecostal services? Patient unable to answer 05/07/2024 Do you belong to any clubs o r organizations such as amish groups, unions, fraternal or athletic groups, or [...] Never 07/31/2024 How often do you attend amish or pentecostal serv ices? Never 07/31/2024 Do you belong to any clubs o r organizations such as amish groups, unions, fraternal or athletic groups, or [...] medical care, and heating? Very hard 07/31/2024 [facility] of Occupat ional [facility] - Occupational Stress Questionnaire Answer Date Recorded [...] any time in the past 12 m [facility], were you homeless or living in a skilled nursing (including now)? Yes 07/31/2024 CAGE ASSESSMENT Answer [...] drink first t terri in the morning (EYE-SHALE MINER BLASTING) to steady your nerves or to get rid of a hangover? 0 03/16/2022 CAGE Questionnaire Score 0 023 Utilities Answer Date Recorded In the past 12 months has e electric, gas, oil, or water company [...] Behavior (Lifetime) No 10:44 PM EDT Cristian Stokes RN documented as of this encounter Discharge Instructions * Discharge Instructions* Chelly Santos PA - 09/24/2024 10:48 PM EDT You [...] times a day. 60 tablet 1 09/04/2024 ergocalciferol (Drisdol) 1.25 MG (16291 UT) capsule Take 1 capsule by mouth 1 time per week. 5 capsule 09/10/2024 5 hydrALAZINE (Apresoline) 25 MG tablet Take 1 tablet by mouth 3 times a day. 90 tablet 09/10/2024 5 isosorbide dinitrate (Isordil Titradose) 5 MG tablet Take 2 tablets by mouth 3 times a day for 30 doses. 60 tablet 09/10/2024 5 magnesium oxide (Mag-Ox) 400 (240 Mg) MG tablet Take 1 tablet by mouth daily. 30 tablet 09/10/2024 5 metoprolol tartrate (Lopressor) 100 MG tablet Take 2 tablets by mouth daily. 60 tablet 09/10/2024 5 naloxone (Narcan) 4 mg/0.1 mL nasal spray 1. Give 1 spray in nostril for no/slow breathing or cannot wake after opioid use 2. Call 911 3. Repeat in other nostril if symptoms continue Call 911. Give 4 mg (1 spray) into one nostril. Repeat every 2-3 minutes as needed, alternating nostrils, until medical assistance arrives. 1 each 11 09/04/2024 5 pantoprazole (Protonix) 40 MG EC tablet [...] Notes * ED Provider Notes - Chelly Santos PA - 09/24/2024 8:15 PM EDT Images [...] nursing note reviewed. Exam conducted with a mobility developer present (family). Constitutional: Appearance: Normal appearance. He [...] INR 2.5 to 3.5 Prevention of recurrent [place] INR 2.5 to 3.5 COMPREHENSIVE METABOLIC PANEL, [...] All Other Orders Ordered Status Ordering Provider 09/24/242143 Type and screen Start now Final result CHELLY SANTOS 09/24/242143 CBC w/diff STAT Final result CHELLY SANTOS 09/24/242143 PT-INR STAT Final result CHELLY SANTOS 09/24/242143 CMP STAT Final result CHELLY SANTOS 09/24/242143 Magnesium STAT Final result CHELLY SANTOS 09/24/242014 EKG now - STAT (adult) Once Preliminary result CECE MILLER ED Course as of 09/25/247 SunSep 24, [id number] Patient updated on lab findings, no need for blood transfusion at this time. Reviewed this plan with ED Attending, Dr. Miller who agrees with no blood transfusion at this time. [LE] 4180 At time of discharge, RN states patient requesting refill of Suboxone until he goes to Suboxone clinic next week. After reviewing dispense report, it appears he has been out of Suboxone >1 week with no signs of withdrawal. Patient advised these will not be prescribed from the ED tonight. [LE] ED Course User Index [LE] Chelly Santos PA Clinical Impressions as of 09/25/24436 ESRD on dialysis (CMS/HCC) Chronic anemia Social Determinates of Health Risks [...] primary encounter diagnosis was ESRD on dialysis (CMS/HCC). A diagnosis of Chronic anemia was also [...] concerned for your health. Disposition Discharge AVS (Malay Snapshot) - Printed 09/24/2024 - [1] Past [...] comment field Gives him bad dreams Chelly Santos PA 09/25/24 0437 Cosigned by Cece Miller [...] (not first infusion). Dialysis through chest port; Sat//--none missed. Pt also had an additional dialysis visit on Sunday. Pt states he can produce some urine intermittently. Pt adds he is out of his suboxone. documented in this encounter Plan of Treatment Upcoming Encounters Date Type Department Care Team (Late st Contact Info) Description 12/02/2024 2:20 PM EDT Office Visit [place] [facility] [address], [address] [place] [address] Cory Archer MD [address] [place] [address] 12/30/2024 3:40 PM EST Office Visit [facility] [place] [address] [facility] [place] [address] Daniel Parsons MD [address] [place] [phone] 01/13/2025 1:10 PM EST Appointment [facility] Endoscopy [address] [place] [phone] documented as of this encounter Goals Goal [...] - 2.4 mg/dL 09/24/2024 10:32 PM EDT [facility] Blood Venous blood specimen / Unknown Venipuncture / Unknown 09/24/2024 10:06 PM EDT 09/24/2024 10:12 PM EDT us Chelly VYAS LAB BLOOD ORDERABLES Final R esult [facility] [address] [place] [address] * (ABNORMAL) CMP (09/24/2024 10:06 PM EDT) Glucose, Plasma 103(H) 74 - 99 mg/dL 09/24/2024 10:32 PM EDT [facility] BUN, Plasma 24(H) 7 - 21 mg/dL 09/24/2024 10:32 PM EDT [facility] Creatinine, Plasma 4.09(H) 0.70 - 1.20 mg/dL 09/24/2024 10:32 PM EDT [facility] BUN/Creatinine Ratio 6 09/24/2024 10:32 PM EDT [facility] Sodium, Plasma 139 136 - 145 mmol/L 09/24/2024 10:32 PM EDT [facility] Potassium, Plasma 4.0 3.6 - 4.9 mmol/L 09/24/2024 10:32 PM EDT [facility] Chloride, Plasma 98 97 - 107 mmol/L 09/24/2024 10:32 PM EDT [facility] CO2, Plasma 25 22 - 29 mmol/L 09/24/2024 10:32 PM EDT [facility] Anion Gap 16 6 - 16 mmol/L 09/24/2024 10:32 PM EDT [facility] Total Calcium, Plasma 8.4(L) 8.9 - 10.2 mg/dL 09/24/2024 10:32 PM EDT [facility] Total Protein 7.2 6.3 - 7.9 g/dL 09/24/2024 10:32 PM EDT [facility] Albumin, Plasma 3.1(L) 3.5 - 5.2 g/dL 09/24/2024 10:32 PM EDT [facility] AST, Plasma 10 10 - 50 U/L 09/24/2024 10:32 PM EDT [facility] ALT, Plasma <5(L) 10 - 50 U/L 09/24/2024 10:32 PM EDT [facility] Alkaline Phosphatase, Plasma 105 40 - 115 U/L 09/24/2024 10:32 PM EDT [facility] Total Bilirubin, Plasma 0.2 0.2 - 1.1 mg/dL 09/24/2024 10:32 PM EDT [facility] eGFRcr 17.8 mL/min/1.7 3m*2 09/24/2024 10:32 PM EDT [facility] Comment:Reported eGFRcr in m L/min/1.73m2 is based the CKD-EPI 2020 equation that does not use a race coefficient. Blood Venous blood specimen / Unknown Venipuncture / Unknown 09/24/2024 10:06 PM EDT 09/24/2024 10:12 PM EDT us Chelly VYAS [facility] BLOOD ORDERABLES Final R esult [facility] [address] [place] [address] * (ABNORMAL) PT-INR (09/24/2024 10:06 PM EDT) Prothrombin Time 14.9(H) 12.0 - 14.3 sec 09/24/2024 10:24 PM EDT [facility] INR 1.1 0.9 - 1.1 09/24/2024 10:24 PM EDT [facility] Blood Venous blood specimen / [...] INR 2.5 to 3.5 Prevention of recurrent [place] INR 2.5 to 3.5 us Chelly VYAS LAB BLOOD ORDERABLES Final R esult [facility] [address] [place] [address] * (ABNORMAL) CBC w/diff (09/24/2024 10:06 PM EDT) [facility] WBC Count 5.62 3.70 - 10.30 10*3/uL LAB HEMATOLOGY METHOD 09/24/2024 10:15 PM EDT [facility] RBC Count 2.74(L) 4.60 - 6.10 10*6/uL LAB HEMATOLOGY METHOD 09/24/2024 10:15 PM EDT [facility] HGB 7.4(L) 13.7 - 17.5 g/dL LAB HEMATOLOGY METHOD 09/24/2024 10:15 PM EDT [facility] HCT 24.1(L) 40.0 - 51.0 % LAB HEMATOLOGY METHOD 09/24/2024 10:15 PM EDT [facility] Platelet Count 231 155 - 369 10*3/uL LAB HEMATOLOGY METHOD 09/24/2024 10:15 PM EDT [facility] MCV 88 79 - 98 fL LAB HEMATOLOGY METHOD 09/24/2024 10:15 PM EDT [facility] MCH 27.0 26.0 - 32.0 pg LAB HEMATOLOGY METHOD 09/24/2024 10:15 PM EDT [facility] MCHC 30.7 30.7 - 35.5 g/dL LAB HEMATOLOGY METHOD 09/24/2024 10:15 PM EDT [facility] RDW 15.5(H) 11.5 - 14.5 % LAB HEMATOLOGY METHOD 09/24/2024 10:15 PM EDT [facility] MPV 8.9 8.8 - 12.5 fL LAB HEMATOLOGY METHOD 09/24/2024 10:15 PM EDT [facility] nRBC 0.0 <=0.0 per 100 WBCs LAB HEMATOLOGY METHOD 09/24/2024 10:15 PM EDT [facility] Differential Type Automated LAB HEMATOLOGY METHOD 09/24/2024 10:15 PM EDT [facility] Neutrophils % 55 % LAB HEMATOLOGY METHOD 09/24/2024 10:15 PM EDT [facility] Lymphocytes % 29 % LAB HEMATOLOGY METHOD 09/24/2024 10:15 PM EDT [facility] Monocytes % 11 % LAB HEMATOLOGY METHOD 09/24/2024 10:15 PM EDT [facility] Eosinophils % 4 % LAB HEMATOLOGY METHOD 09/24/2024 10:15 PM EDT [facility] Basophils % 1 % LAB HEMATOLOGY METHOD 09/24/2024 10:15 PM EDT [facility] Immature Granulocytes % 0 % LAB HEMATOLOGY METHOD 09/24/2024 10:15 PM EDT [facility] Neutrophils Absolute 3.12 1.60 - 6.10 10*3/uL LAB HEMATOLOGY METHOD 09/24/2024 10:15 PM EDT [facility] Lymphocytes Absolute 1.63 1.20 - 3.90 10*3/uL LAB HEMATOLOGY METHOD 09/24/2024 10:15 PM EDT [facility] Monocytes Absolute 0.59 0.30 - 0.90 10*3/uL LAB HEMATOLOGY METHOD 09/24/2024 10:15 PM EDT [facility] Eosinophils Absolute 0.22 0.00 - 0.50 10*3/uL LAB HEMATOLOGY METHOD 09/24/2024 10:15 PM EDT [facility] Basophils Absolute 0.04 0.00 - 0.10 10*3/uL LAB HEMATOLOGY METHOD 09/24/2024 10:15 PM EDT [facility] Immature Granulocytes Absolute 0.02 0.00 - 0.06 10*3/uL LAB HEMATOLOGY METHOD 09/24/2024 10:15 PM EDT [facility] Blood Venous blood specimen / Unknown Venipuncture / Unknown 09/24/2024 10:06 PM EDT 09/24/2024 10:11 PM EDT Narrative [facility] - 09/24/2024 10:15 PM EDT Therapeutic decision making should be based on absolute values, rather than percentages. us Chelly VYAS LAB BLOOD ORDERABLES Final R esult [facility] [address] [place] [id number] * Type and screen (09/24/2024 10:06 PM [...] BLOOD BANK TEST ORDERABL ES Final Result BLOOD BANK [address] [place] [address], * EKG now - STAT (adult) (09/24/2024 8:34 PM EDT) EKG DIAGNOSIS CLASS Abnormal MUSE ECG Ventricular Rate 92 BPM MUSE ECG Atrial Rate 92 BPM MUSE ECG AL Interval 146 ms MUSE ECG QRSD Interval 76 ms MUSE ECG QT Interval 396 ms MUSE ECG QTC Interval 489 ms MUSE ECG P [place] 23 degrees MUSE ECG R [place] -24 degrees MUSE ECG T Wave [place] 65 degrees MUSE ECG Diagnosis Normal sinus rhythm MUSE ECG Diagnosis Possible Left atrial enlargement MUSE ECG Diagnosis Inferior infarct , age undetermined MUSE ECG Diagnosis Cannot rule out Anterior infarct , age undetermined MUSE ECG Diagnosis Abnormal ECG MUSE ECG Diagnosis MUSE ECG Diagnosis Confirmed by Cb Eaton ([id number]) on 09/25/2024 1:58:50 PM MUSE ECG 09/24/2024 8:34 PM EDT 09/25/2024 1:58 PM EDT Cece Miller MD ECG ORDERABLES Final Result MUSE ECG documented in this encounter Visit Diagnoses Diagnosis ESRD on dialysis- Primary End stage renal disease Chronic anemia Unspecified anemia documented in this encounter Additional Health Concerns Active Problems Noted Date Diagnosed Date Autogenerated Problem 05/13/2024 Autogenerated Problem 08/05/2024 Infection Onset Date Last Indicated Resolved Time MRSA 05/06/2024 10/12/2024 Assessment Noted Time A Body Mass Index follow-up plan has been documented for the patient 09/09/2024 8:03 AM EDT documented as of this encounter Care Teams Terrazzo Worker Relationship Specialty Start Date End Date Pcp, [place] [address] PCP - General Family Medicine 07/26/21 documented as of this encounter
--- OUTSIDE RECORDS SUMMARY | 2024-10-14 14:30 | XMS_ITS | Encounter Summary ---
Author Organization Healthcare Address [address] [place] [address] Care Team Providers Care Maintenance Chief Name Role Phone Pcp, No Primary Care Provider Unavailabl e Reason for Visit * Auth/Cert (Routine) Specialty Diagnoses / Procedures Referred By Contac t Referred To Contact Diagnoses End-stage renal disease needing dialysis ([facility]/HCC) Free air in [facility] Nash Robins MD [address] [place] [address] Phone: tel: fax: [facility] S Inpatient [address] [place] [address] Phone: tel: Referral ID Status Reason Start Date Expiration Date Visits Re quested Visits Authorized [id number] 1 1 Encounter Details Date Type Department Care Team (Late st Contact Info) Description 10/14/2024 2:30 PM EDT Anesthesia Event [facility] [address] [place] [address] Kayden Gloria MD [address] [place] [address] Anesthesia Record Procedure Summary Procedure Name Responsible Anesthesiologist Anesthesia Start Time Anesthesia Stop Time EGD Kayden Gloria MD 10/14/24 1430 1453 Events Date Time Event Comment 10/14/2024 1400 1430 An Start The patient was reevaluated immediately before sedation and remains eligible for anesthesia plan. 1433 In Room 1433 An Start Data 1437 An Induction The patient was reevaluated immediately before moderate or deep sedation use and before anesthesia induction. 1437 Anesthesia Ready 1438 Proc Start 1448 Proc Fin 1450 Out of Room 1450 an stop data 1453 Handoff to Receiving I compl eted my handoff to the receiving clinician during which we: 1. Identified the patient 2. Identified the responsible provider 3. Reviewed the pertinent medical history 4. Discussed the surgical course 5. Reviewed intra-op anesthesia management and issues during anesthesia 6. Set expectations for post-procedure period 7. Allowed opportunity for questions and acknowledgement of understanding. 1453 An Stop Meds Name Total lidocaine PF (Xylocaine-MPF) 2% 100 mg propofol (Diprivan) injection 10 mg/mL 6 0 mg propofol (Diprivan) infusion 10 mg/mL 31 0.56 mg sodium chloride 0.9 % infusion 250 mL * Agents Name O2 N2O Air N2O Inspired N2O * Blood No blood administrations on file. Lines, Drains, and Airways Type Details Placement Removal Wound 08/11/24; 1151; Mouth 08/11/24 1 151 by Jessica Ortiz RN Hemodialysis Cath Double Lumen 08/13/24; 1655; Yes; Chlorhexidine ; Yes; Yes; Injectable; Transillumination; 14.5; 23 cm; 1; Sutured; Tolerated well; X-ray; Right; Tunneled catheter; Jugular; Chest 08/13/24 1655 by Phyllis Mack Wound 08/15/24; 1400; Sacrum 08/15/24 1400 by Kathy Galdamez RN Peripheral IV Placement Date: 10/12/24; Placement Time: 1556; Catheter Size: 20 G; Orientation: Posterior, Proximal, Right; Location: Forearm; Removal Date: 10/15/24; Removal Time: 0200; Removal Reason: Per patient/family request 10/12/24 1556 by Kendra Salmeron RN 10/15/24 0200 by Juan Madrid RN Peripheral IV Placement Date: 10/13/24; Placement Time: 1115; Catheter Size: 20 G; Orientation: Anterior, Right, Upper; Location: Arm; Site Prep: Alcohol; Technique: Anatomical landmarks; Inserted by: Jenn Bhatt RN; Insertion Attempts: 1; Patient Tolerance: Tolerated well; Removal Date: 10/16/24; Removal Time: 1311; Removal Reason: Leaking 10/13/24 1115 by Devon Villalta RN 10/16/24 1312 by Maria Isabel Gonzalez RN documented in this encounter Social History [...] 05/07/2024 How often do you attend [facility] or tenriism services? Patient unable to answer [...] afraid of your partner or ex-partner? No 10/13/2024 Within the last year, have y ou been humiliated or emotionally abused in other ways by your partner or ex-partner? No Within the last year, have y ou been kicked, hit, slapped, or otherwise physically hurt by your partner or ex-partner? No 10/13/2024 Within the last year, have y ou been raped or forced to have any kind of sexual activity by your partner or ex-partner? No 10/13/2024 Social Connection and Isolation Panel Answer Date Recorded In a typical week, how many times do you talk on the phone with family, friends, or neighbors? Never 07/31/2024 How often do you get together with friends or re latives? Never 07/31/2024 How often do you attend cheondoism or tenriism serv ices? Never 07/31/2024 Do [...] medical care, and heating? Very hard 07/31/2024 [facility] - Occupational Stress Questionnaire Answer [...] the money to buy more. Often true 10/14/19 25 Within the past 12 months, t he food you bought just didn't last and you didn't have money to get more. Often true 10/13/2024 PRAPARE - Transportation Answer Date Re corded In the past 12 months, has l ack of transportation kept you from medical appointments or from getting medications? Yes 09/2024 In the past 12 months, has l ack of transportation kept you from meetings, work, or from getting things needed for daily living? Yes 10/13/2024 Housing Stability Vital Sign Answer Philippe e Recorded In the last 12 months, was t here a time when you were not able to pay the mortgage or rent on time? Patient unable to answer 10/13/2024 Number of Times Moved in the Last Year Not on fi le 10/13/2024 At any time in the past 12 m [facility], were you homeless or living in a chcf (including now)? Yes 10/13/2024 [facility] Utilities Answer Date Recorded In the past 12 months has th e electric, gas, oil, or water company threatened to shut off services in your home? No 10/13/2024 CAGE ASSESSMENT Answer Date Recorded Cage unable [...] drink first t terri in the morning (EYE-MASTER OCEAN YACHT) to steady your nerves or to get rid of a hangover? 0 03/16/2022 CAGE Questionnaire Score 0 023 Sex and Gender Information Value Date Recorded Sex Assigned at Not on file Legal Sex Male 7:46 PM EDT Gender Identity Not on file Sexual Orientation Not on file documented as of this encounter Miscellaneous Notes * Anesthesia Postprocedure Evaluation - Kirsty Donald CRNA - 10/14/2024 2:53 PM EDT Patient: Noe Gee Payne Anesthesia Type: general Vitals Value Taken Time BP 124/74 10/14/24 14:53 Temp 36.4 ??C (97.6 ??F) 10/14/24 14:52 Pulse 97 10/14/24 14:52 Resp 12 10/14/24 14:53 SpO2 95% 10/14/24 14:52 Vitals shown include unfiled device data. Anesthesia Post Evaluation Patient location during evaluation: PACU Patient participation: complete - patient cannot participate Level of consciousness: sedated Pain management: adequate (pain score 0-3) Airway patency: natural airway Cardiovascular status: acceptable Respiratory status: acceptable, spontaneous ventilation, unassisted, nasal cannula and nonlabored ventilation Hydration status: acceptable Nausea/Vomiting: No No notable events documented. * Anesthesia Preprocedure Evaluation - Kayden Gloria MD - 10/14/2024 12:15 PM EDT No anesthesia staff entered. 44 yo homeless man presents for EGD due to suspected PUD in the setting oc cirrhosis. PMH: anemia (hgb 7.9), coagulopathy (INR 2.2), pAF s/p cardioversion on metoprolol and eliquis (last dose >2 days ago), sCHF, untreated hepatitis B & C, ESRD on dialysis via right chest port (last dialysis today), provoked LUE DVT in 2022, h/o polysubstance abuse (THC, methamphetamine, opioids), 18 pk yr s moker. 2024 ECG shows NSR. 2024 echo shows EF 30% with global HK, left atrial dilation, moderate mitral regurgitation, otherwise unremarkable. Prior GA. Of note, pt was downgraded from ICU today to facilitate endoscopy. Patient: Noe Payne HPI Noe Payne is a 44 y.o. male with body mass index is unknown because there is no height or weight on file. who presents with No Principal Problem: There is no principal problem currently on the Problem List. Please update the Problem List and refresh., now for Procedure Information Date/Time: 10/14/24 1500 Scheduled providers: Kayden Gloria MD; Kirsty Donald CRNA; Eduin Greer RN; Chintan Nixon MD Procedure: EGD Location: [facility] Relevant Problems Cardio (+) Atrial flutter with rapid ventricular response (CMS/HCC) (+) Dyspnea (+) Hypertensive emergency GI (+) Ileus (CMS/HCC) /Renal (+) Acute renal failure (ARF) (CMS/HCC) (+) ESRD (end stage renal disease) (CMS/HCC) (+) End-stage renal disease needing dialysis (CMS/HCC) (+) Hepatitis C Pulmonary (+) Mycoplasma pneumonia ALLERGIES Allergies[1] NPO STATUS Past Medical History[2] AIRWAY HISTORY Airway Detailed Review Displaying the 20 most recent records Date Difficult Airway Blade Size ETT Size C-L Class Final Type Intubation Method 08/25/24 No 05/15/24 No 4 7.5 grade I - full view of glottis endotracheal airway direct laryngoscopy MEDICATIONS Outpatient Current Outpatient Medications Medication Instructions apixaban (ELIQUIS) 5 mg, Oral, 2 times daily ergocalciferol (DRISDOL) 50,000 Units, Oral, Weekly hydrALAZINE (APRESOLINE) 25 mg, Oral, 3 times daily isosorbide dinitrate (ISORDIL TITRADOSE) 10 mg, Oral, 3 times daily (0600, 1200 & 1800) metoprolol tartrate (LOPRESSOR) 200 mg, Oral, Daily naloxone (NARCAN) 4 mg, Nasal, As needed, Call 911. Give 4 mg (1 spray) into one nostril. Repeat every 2-3 minutes as needed, alternating nostrils, until medical assistance arrives. Scheduled Current Scheduled Medications[3] PRNs Current PRN Medications[4] SURGICAL HX: Surgical History[5] SOCIAL HX: Social History[6] OBJECTIVE DATA LABS Lab Results Component Value Date WBC 7.45 10/14/2024 HGB 7.9 (L) 10/14/2024 HCT 26.0 (L) 10/14/2024 MCV 88 10/14/2024 PLT 249 10/14/2024 Lab Results Component Value Date CALCIUM 7.7 (L) 10/14/2024 BUN 63 (H) 10/14/2024 CREATININE 5.49 (H) 10/14/2024 BCR 11 10/14/2024 NA 136 10/14/2024 K 5.7 (H) 10/14/2024 CL 100 10/14/2024 CO2 20 (L) 10/14/2024 Type and Screen ABO/Rh Date Value Ref Range Status 10/12/2024 B Positive Final Results from last 7 days Lab Units 10/12/24 192 INR 2.2* Lab Results Component Value Date HGBA1C 4.1 10/12/2024 Lab Results Component Value Date PGLU 125 (H) 10/14/2024 GLUCOSE 161 (H) 10/14/2024 ABG Lab Results Component Value Date PHART 7.40 08/03/2024 [id number] 31 (L) 08/03/2024 PO2ART 159 (H) 08/03/2024 SO2ART 99 (H) 08/03/2024 BEART -5.0 (L) 08/03/2024 [id number] 25 08/04/2024 HCTART 23.0 (L) 08/03/2024 SODIUMART 135 (L) 08/03/2024 POTASSIUMART 3.9 08/03/2024 POCTCL 104 08/03/2024 POCGLU 103 (H) 08/03/2024 IONCALART 4.0 (L) 08/03/2024 LACTATE 0.7 08/04/2024 Lab Results Component Value Date PH 7.39 08/04/2024 PCO2 41 08/04/2024 PO2 141 (H) 08/04/2024 [id number] 100 (H) 08/04/2024 BASEEXC -0.4 08/04/2024 HCTSYR 36.7 (L) 10/13/2024 KSYR 5.0 (H) 10/13/2024 CLSYR 102 10/13/2024 GLUSYR 88 10/13/2024 CAION 3.9 (L) 10/14/2024 LACTATE 0.7 08/04/2024 ECHO Echo, Adult Transthoracic Complete Result Date: 10/13/2024 Left Ventricle: Based on the linear dimension and/or 2D volumes, the left ventricle is moderately dilated in size. There is severe eccentric hypertrophy. The left ventricular systolic function is moderately reduced. The LVEF as measured by biplane volume is 30%. The diastolic function is abnormal. There is global hypokinesis of the left ventricle. The septal wall is akinetic. Right Ventricle: Theright ventricle is normal in size. The right ventricular systolic function is normal. Mitral Valve:There is moderate mitral regurgitation. Pericardium: No pericardial effusion. Compared to the most recently available prior study, and allowing for differences in image quality and technique, there is no significant interval change noted. Echo, Adult Transthoracic (TTE) Limited Result Date: [...] is no recent study available for direct nzbb-ee-aozb comparison. No echocardiographic abnormalities. Normal cardiac structures [...] systolic function. PFTs No results found for: TIQ9YIY , UTR6CDFN , EPX8JLD , FVCPRED BP Readings from Last 5 Encounters: 10/14/24 (!) 153/109 10/12/24 (!) 157/70 09/24/24 (!) 126/91 09/08/24 (!) 133/91 09/08/24 (!) 140/88 Physical Exam Airway Mallampati: III Mouth opening: normal TM distance: >3 FB Neck ROM: full Cardiovascular Rhythm: regular Rate: normal Dental Pulmonary Breath sounds clear to auscultation Neurological Oriented: normal to time, normal to place and normal to person and oriented to person, place and time Skin Musculoskeletal Extremities Other findings: Pt missing multiple teeth (states 7 were recently pulled) Anesthesia Plan ASA 4 Plan was reviewed with: MEASUREMENT AND SENSING TECHNICIAN Anesthesia technique(s) discussed with the patient/family: general and MAC Anesthesia plan agreed upon was: general Anesthetic plan and risks discussed with patient. Use of blood products discussed with patient who consented to blood products. Anesthesia Evaluation [1] Allergies Allergen Reactions Erythromycin Other - please document in the comment field Gives him bad dreams [2] Past Medical History: Diagnosis Date Opioid abuse [3] [4] [5] Past Surgical History: Procedure Laterality Date ANKLE SURGERY THORACENTESIS [6] Social History Tobacco Use Smoking status: Every Day Current packs/day: 1.00 Average packs/day: 1 pack/day for 17.7 years (17.7 ttl pk-yrs) Types: Cigarettes Start date: 2007 Passive exposure: Past Smokeless tobacco: Never Vaping Use Vaping status: Some Days Substance Use Topics Alcohol use: Defer Drug use: Yes Types: IV, Marijuana, Methamphetamines Comment: fentanyl documented in this encounter Plan of Treatment Upcoming Encounters Date Type Department Care Team (Late st Contact Info) Description 12/02/2024 2:20 PM EDT Office Visit [facility] [address], [address] [place] [phone] Cory Archer MD [address] [place] [address] 12/30/2024 3:40 PM EST Office Visit [facility] [place] [facility] [address] [facility]. [address] [place] [address] Daniel Parsons MD [address] [place] [address] 01/13/2025 1:10 PM EST Appointment [facility] [address] [place] [address] documented as of this encounter Goals Goal Patient Goal Type Associated Problems Recent Progress Patient-Stated? Author Autogenerat ed Goal Care Plan Autogenerated Problem No Sergo Pedroza Autogenerat ed Goal Care Plan Autogenerated Problem No Leisa Anaya, RN Autogenerat ed Goal Care Plan Autogenerated Problem No Kai Ying, RN documented as of this encounter Visit Diagnoses Not on filedocumented in this encounter Administered Medications Inactive Administered Medications - up to 3 most recent administrations Medication Order MAR Action Action Date Dose Rate Site lidocaine PF (Xylocaine) 2 % injection Intravenous, As needed, Starting on Sun10/14/24 at 1437, Until Sun10/14/24 at 1453, Routine, Anesthesia Intraprocedure Given 10/14/2024 2:37 PM EDT 100 mg propofol (Diprivan) infusion 10 mg/mL Intravenous, Continuous PRN, Starting on Sun10/14/24 at 1437, Until Sun10/14/24 at 1453, Routine New Bag 10/14/2024 2:37 PM EDT 300 mcg/kg/min 116.46 mL/hr propofol (Diprivan) injection Intravenous, As needed, Starting on Sun10/14/24 at 1437, Until Sun10/14/24 at 1453, Routine, Anesthesia Intraprocedure Given 10/14/2024 2:37 PM EDT 60 mg sodium chloride 0.9 % infusion Intravenous, Continuous PRN, Starting on Sun10/14/24 at 1430, Until Sun10/14/24 at 1453, Routine New Bag 10/14/2024 2:30 PM EDT documented in this encounter Additional Health Concerns Active Problems Noted Date Diagnosed Date Autogenerated Problem 05/13/2024 Autogenerated Problem 08/05/2024 Autogenerated Problem 10/14/2024 Infection Onset Date Last Indicated Resolved Time MRSA 05/06/2024 10/12/2024 C. difficile Rule-Out 10/12/2024 10/12/20242024 9:54 PM EDT Gastrointestinal Rule-Out 10/12/2024 10/12/20245 9:54 PM EDT Assessment Noted Time A Body Mass Index follow-up plan has been documented for the patient 10/17/2024 12:06 PM EDT documented as of this encounter Care Teams Maintenance Chief Relationship Specialty Start Date End Date Pcp, [place] [address] PCP - General Family Medicine 07/26/21 documented as of this encounter
--- NOTE | 2024-11-07 08:47 | US_ITS ---
FINAL REPORT CLINICAL HISTORY: ACITES -- XAVIER VYAS -- 8150 ML REMOVED FINDINGS: ULTRASOUND-GUIDED PARACENTESIS HISTORY:Ascites ATTENDING PHYSICIAN: Dr. Albert PHYSICIAN FRUIT PICKER: Xavier Yusuf PA-C FINDINGS: After informed consent was obtained and timeout procedure performed, fluid was localized in the right lower quadrant under ultrasound guidance and marked on the skin appropriately. The patient was then prepped and draped in the usual sterile fashion and the skin was anesthetized with 1% lidocaine. An ultrasound guided paracentesis was then performed using a Turkel needle. Approximately 8.15 liters of fluid was removed. No fluid was sent to lab. The patient tolerated the procedure well and there were no immediate complications. IMPRESSION: Ultrasound guided right lower quadrant paracentesis as discussed above. Reviewed, Interpreted and Dictated by Kaleb Albert MD Transcribed by ASAEL Klein Authenticated and [facility]
--- OUTSIDE RECORDS SUMMARY | 2024-11-07 08:50 | XMS_ITS | Encounter Summary ---
Author Organization Healthcare Address [address] [place] [address] Care Team Providers Care Line Camera Operator Name Role Phone Pcp, No Primary Care Provider Unavailabl e Encounter Details Date Type Department Care Team (Late st Contact Info) Description 09/18/2024 Telephone [facility] [address] [place] [phone] Angeles Carvalho, RN [facility] Social [...] How often do you attend chur or roman catholic services? Patient unable to answer 05/07/2024 Do [...] How often do you attend protestant or roman catholic serv ices? Never 07/31/2024 Do you belong [...] medical care, and heating? Very hard 07/31/2024 [facility] [place] [facility] Occupat ional Health - Occupational Stress [...] in the past 12 m [facility], were you homeless or living in a nursing home (including now)? Yes 07/31/2024 CAGE ASSESSMENT [...] drink first t terri in the morning (EYE-SPECIAL DUTY NURSE) to steady your nerves or to get [...] Description 12/02/2024 2:20 PM EDT Office Visit [facility] [address] [place] [address] Cory Archer MD [address] [place] [address] 12/30/2024 3:40 PM EST Office Visit [facility] [place] [address] [facility]. [address] [place] [address] Daniel Parsons MD [address] [place] [address] 01/13/2025 1:10 PM EST Appointment [facility] [address] [place] [phone] documented as of this encounter Goals Goal [...] documented as of this encounter Care Teams Line Camera Operator Relationship Specialty Start Date End Date Pcp, No [address] [place] [address] PCP - General Family Medicine 07/26/21 documented as of this encounter
--- OUTSIDE RECORDS SUMMARY | 2024-11-07 08:50 | XMS_ITS | Encounter Summary ---
Author Organization Healthcare Address [address] [place] [address] Care Team Providers Care Millstone Cleaner Name Role Phone Pcp, No Primary Care Provider Unavailabl e Encounter Details Date Type Department Care Team (Late st Contact Info) Description 09/17/2024 Orders Only External Location [address] [place] [address] [place] [address] Social History Tobacco Use Types Packs/Day Years [...] answer 05/07/2024 How often do you attend [facility] or episcopalian services? Patient unable to answer 05/07/2024 Do [...] How often do you attend latter-day or episcopalian serv ices? Never 07/31/2024 Do you belong [...] medical care, and heating? Very hard 07/31/2024 [facility] - Occupational Stress Questionnaire Answer Date [...] drink first t terri in the morning (EYE-DIGESTER OPERATOR HELPER) to steady your nerves or [...] Visit [facility] [address] [place] [address] Cory Archer MD [address] [place] [address] 12/30/2024 3:40 PM EST Office Visit [facility] [address] [facility] [place] [address] Daniel Parsons MD [address] [place] [address] 01/13/2025 1:10 PM EST Appointment [facility] [address] [place] [id number] documented as of this encounter Goals Goal [...] Tomogra phy 09/17/2024 8:49 PM EDT Deirdre HOROWITZ CT PROCEDURES Final Result documented in this [...] documented as of this encounter Care Teams Millstone Cleaner Relationship Specialty Start Date End Date Pcp, [place] [address] PCP - General Family Medicine 07/26/21 documented as of this encounter
--- OUTSIDE RECORDS SUMMARY | 2024-11-07 08:51 | XMS_ITS | Encounter Summary ---
Author Organization Healthcare Address [address] [place] [address] Care Team Providers Care Corn Popper Name Role Phone Pcp, No Primary Care Provider Unavailabl e Encounter Details Date Type Department Care Team (Late st Contact Info) Description 09/29/2024 Telephone [place] [facility] [address] [place] [address] Social History Tobacco Use Types Packs/Day Years [...] often do you attend [facility] or sikhism services? Patient unable to answer 05/07/2024 Do you belong to any clubs o r organizations such as confucianism groups, unions, fraternal or athletic groups, or [...] Never 07/31/2024 How often do you attend confucianism or sikhism serv ices? Never 07/31/2024 Do you belong to any clubs o r organizations such as confucianism groups, unions, fraternal or athletic groups, or [...] medical care, and heating? Very hard 07/31/2024 [facility] - Occupational Stress Questionnaire Answer Date [...] any time in the past 12 m [facility], were you homeless or living in a [...] drink first t terri in the morning (EYE-DESIGN DRAFTER CHIEF) to steady your nerves or to get [...] RS today's appointment Best contact number: Other: [phone] Optimal time of day to reach caller: ANYTIME Additional comments/information from caller: None Note: Please do not reply to this message. Follow-up communication and further actions as a result of this message need to be communicated with the patient directly, if the patient is not active onMyChart. If the patient is active on MyChart, they will receive notification of the communication/outcome via 20linest. documented in this encounter Plan of Treatment Upcoming Encounters Date Type Department Care Team (Late st Contact Info) Description 12/02/2024 2:20 PM EDT Office Visit [facility] [address] [place] [address] Cory Archer MD [address] [place] [address] 12/30/2024 3:40 PM EST Office Visit [facility] [place] [address] [facility] [place] [address] Daniel Parsons MD [address] [place] [address] 01/13/2025 1:10 PM EST Appointment [facility] [address] [place] [address] documented as of this encounter Goals Goal [...] documented as of this encounter Care Teams Corn Popper Relationship Specialty Start Date End Date Pcp, [place] [address] PCP - General Family Medicine 07/26/21 documented as of this encounter
--- OUTSIDE RECORDS SUMMARY | 2024-11-07 08:51 | XMS_ITS | Encounter Summary ---
Author Organization Healthcare Address [address] [place] [address] Care Team Providers Care Bottom Liner Name Role Phone Pcp, No Primary Care Provider Unavailabl e Encounter Details Date Type Department Care Team (Late st Contact Info) Description 09/17/[address] [facility] Medicine Specialties [address] [place] [address] Deirdre Gandara Social History Tobacco Use Types [...] often do you attend [facility] or jainism services? Patient unable to answer 05/07/2024 Do you belong to any clubs o r organizations such as mormon groups, unions, fraternal or athletic groups, or [...] Never 07/31/2024 How often do you attend mormon or jainism serv ices? Never 07/31/2024 Do you belong to any clubs o r organizations such as mormon groups, unions, fraternal or athletic groups, or [...] medical care, and heating? Very hard 07/31/2024 [facility] - Occupational Stress [...] in the past [address] [facility], were you homeless or living in a [...] drink first t terri in the morning (EYE-PHILANTHROPY OFFICER) to steady your nerves or to get [...] cannot be dialed. Sent text requesting f/u. -[phone]: Spoke to female who reports sister is best number to reach pt. -[phone]: Left vm and sent a text requesting f/u. LTC team will attempt contact in 1 week. documented in this encounter Plan of Treatment Upcoming Encounters Date Type Department Care Team (Late st Contact Info) Description 12/02/2024 2:20 PM EDT Office Visit [place] [facility] [address] [place] [address] Cory Archer MD [address] [place] [address] 12/30/2024 3:40 PM EST Office Visit [facility] [place] [facility] [address] [facility] [place] [address] Daniel Parsons MD [address] [place] [address] 01/13/2025 1:10 PM EST Appointment [facility] [address] [place] [address] documented as of this encounter [...] documented as of this encounter Care Teams Bottom Liner Relationship Specialty Start Date End Date Pcp, No [address] [place] [address] PCP - General Family Medicine 07/26/21 documented as of this encounter
--- OUTSIDE RECORDS SUMMARY | 2024-11-07 08:51 | XMS_ITS | Encounter Summary ---
Author Organization Healthcare Address [address] [place] [address] Care Team Providers Care Saw Tailer Name Role Phone Pcp, No Primary Care Provider Unavailabl e Encounter Details Date Type Department Care Team (Late st Contact Info) Description 09/24/2024 Patient Outreach [facility] Medicine Specialties [address] [place] [address] Kalee Cardona Social History Tobacco Use Types [...] How often do you attend chur or sabianist services? Patient unable to answer 05/07/2024 Do [...] How often do you attend jainism or sabianist serv ices? Never 07/31/2024 Do you belong [...] care, and heating? Very hard 07/31/2024 [facility] Occupat ional [facility] - Occupational Stress Questionnaire Answer [...] in the past 12 m [facility], were you homeless or living [...] drink first t terri in the morning (EYE-AUTOMOBILE MECHANIC MOTOR) to steady your nerves or to get [...] needs [facility]. Sw spoke with pt on 2560 and pt scheduled with [facility]. Sw noticed note from GI clinic that pt needs to be booked SAVANNAH in an overflow appointment. Sw messaged Charline Diaz who stated pt needs to be in overflow or [facility] and she would call and schedule it with him. Pt scheduled for 09/29. LTC will follow up on 09/30 to check appt status documented in this encounter Plan of Treatment Upcoming Encounters Date Type Department Care Team (Late st Contact Info) Description 12/02/2024 2:20 PM EDT Office Visit [facility] [address] [place] [address] Cory Archer MD [address] [place] [address] 12/30/2024 3:40 PM EST Office Visit [facility] [address] [facility] [place] [address] Daniel Parsons MD [address] [place] [address] 01/13/2025 1:10 PM EST Appointment [facility] [address] [place] [address] documented as of this encounter [...] documented as of this encounter Care Teams Saw Tailer Relationship Specialty Start Date End Date Pcp, Sumaya [address] [place] [address] PCP - General Family Medicine 07/26/21 documented as of this encounter
--- OUTSIDE RECORDS SUMMARY | 2024-11-07 08:51 | XMS_ITS | Encounter Summary ---
Author Organization Healthcare Address [address] [place] [address] Care Team Providers Care Automobile Lights Assembler Name Role Phone Pcp, No Primary Care Provider Unavailabl e Encounter Details Date Type Department Care Team (Late st Contact Info) Description 09/09/2024 Orders Only Professional [facility] Nephrology, Bone & Mineral Metabolism [address], [address] [place] [address] Rosie Charlton MD [address] [place] [address] ESRD (end stage renal disease) ([facility]) (Primary Dx) Social History Tobacco Use [...] How often do you attend chur or uatsdin services? Patient unable to answer 05/07/2024 Do you belong to any clubs o r organizations such as episcopal groups, unions, fraternal or athletic groups, or [...] Never 07/31/2024 How often do you attend episcopal or uatsdin serv ices? Never 07/31/2024 Do you belong to any clubs o r organizations such as episcopal groups, unions, fraternal or athletic groups, or [...] medical care, and heating? Very hard 07/31/2024 [facility] of Occupat ional [facility] - Occupational Stress Questionnaire Answer Date Recorded [...] in the past 12 m [facility], were you homeless or living in a [...] drink first t terri in the morning (EYE-ARBOREAL SCIENTIST) to steady your nerves or to get [...] Visit [place] [facility] [address] [place] [address] Cory Archer MD [address] [place] [address] 12/30/2024 3:40 PM EST Office Visit [facility] [place] [address] [facility] [place] [address] Daniel Parsons MD [address] [place] [address] 01/13/2025 1:10 PM EST Appointment [facility] [address] [place] [phone] documented as of this encounter Goals Goal Patient Goal Type Associated Problems Recent Progress Patient-Stated? Author Autogenerat ed Goal Care Plan Autogenerated Problem No Sergo Pedroza Autogenerat ed Goal Care Plan Autogenerated Problem No Leisa Anaya RN documented as of this encounter Results * Hepatitis B Surface Antigen (09/10/2024 2:40 PM EDT) Hepatitis B Surf Antigen Negative Negative 09/10/2024 4:17 PM EDT [facility] Blood Venous blood specimen / Unknown Venipuncture / Unknown 09/10/2024 2:40 PM EDT 09/10/2024 2:40 PM EDT us Eri Becker MD LAB BLOOD ORDERABLES Fin al Result [facility] [address] [place] [address] * (ABNORMAL) Hepatitis B Core Total Ab, IgG and IgM (09/10/2024 2:40 PM EDT) Hepatitis B Core Total Antibody IgG,IgM Positive(A ) Negative 09/10/2024 4:55 PM EDT [facility] Blood Venous blood specimen / Unknown Venipuncture / Unknown 09/10/2024 2:40 PM EDT 09/10/2024 2:40 PM EDT us Eri Becker MD LAB BLOOD ORDERABLES Fin al Result Performing Organization Address [facility] Co de Phone Number [facility] [address] [place] [address] documented in this encounter Visit Diagnoses Diagnosis ESRD (end stage renal disease)- Primary End stage renal disease documented in this encounter Additional Health Concerns Active Problems Noted Date Diagnosed Date Autogenerated Problem 05/13/2024 Autogenerated Problem 08/05/2024 Infection Onset Date Last Indicated Resolved Time 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
--- OUTSIDE RECORDS SUMMARY | 2024-11-07 08:51 | XMS_ITS | Encounter Summary ---
Author Organization Healthcare Address [address] [place] [address] Care Team Providers Care Smeller Name Role Phone Pcp, No Primary Care Provider Unavailabl e Encounter Details Date Type Department Care Team (Late st Contact Info) Description 09/09/2024 Orders Only Professional [facility] Nephrology, Bone & Mineral Metabolism [address], [address] [place] [address] Rosie Charlton MD [address] [place] [address] ESRD (end stage renal disease) ([facility]) (Primary Dx) Social History Tobacco Use Types [...] How often do you attend chur or mosque services? Patient unable to answer 05/07/2024 Do you belong to any clubs o r organizations such as mormonism groups, unions, fraternal or athletic groups, or [...] Never 07/31/2024 How often do you attend mormonism or mosque serv ices? Never 07/31/2024 Do you belong to any clubs o r organizations such as mormonism groups, unions, fraternal or athletic groups, or [...] medical care, and heating? Very hard 07/31/2024 [facility] of Occupat ional [facility] - Occupational Stress Questionnaire Answer Date [...] any time in the past 12 m [facility], were you homeless or living [...] drink first t terri in the morning (EYE-MERCERIZER) to steady your nerves or to get [...] Description 12/02/2024 2:20 PM EDT Office Visit [place] [facility] [address] [place] [address] Cory Archer MD [address] [place] [address] 12/30/2024 3:40 PM EST Office Visit [facility] [place] [facility] [address] [facility] [place] [address] Daniel Parsons MD [address] [place] [address] 01/13/2025 1:10 PM EST Appointment [facility] [address] [place] [address] documented as of this encounter Goals Goal [...] documented as of this encounter Care Teams Smeller Relationship Specialty Start Date End Date Pcp, [place] [address] PCP - General Family Medicine 07/26/21 documented as of this encounter
--- OUTSIDE RECORDS SUMMARY | 2024-11-07 08:51 | XMS_ITS | Clinical Summary ---
Author Organization Healthcare Address [address] [place] [address] Care Team Providers Care Exercise Teacher Name Role Phone Pcp, No Primary Care Provider UnavailCarole Tim LPN Unavailable Unavailable Allergies Active Allergy Reactions Criticality Noted Date Comments Erythromycin Other - please docum ent in the comment field Low 05/23/2012 Gives him bad dreams Medications * This document contains information received from the source organization and may not represent a complete record from that organization. apixaban (Eliquis) 5 MG tablet Take 1 tablet by mouth 2 times a day. 60 tablet 1 09/05/19 25 Active naloxone (Narcan) 4 mg/0.1 mL nasal spray 1. Give 1 spray in nostril for no/slow breathing or cannot wake after opioid use 2. Call 911 3. Repeat in other nostril if symptoms continue Call 911. Give 4 mg (1 spray) into one nostril. Repeat every 2-3 minutes as needed, alternating nostrils, until medical assistance arrives. 1 each 10/14/19 25 026 Active buprenorphine (Subutex) [address] 2 tablets under the tongue daily. 10/19/19 25 Active pantoprazole (Protonix) 40 MG EC tablet Take 1 tablet by mouth 2 times a day. Do not crush, chew, or split. 60 tablet 1 10/18/19 25 025 Active sevelamer carbonate (Renvela) 800 MG tabletIndicat ions:ESRD on Dialysis Take 2 tablets by mouth 3 times a day with meals. Swallow tablet whole; do not crush, break, or chew. 10/18/19 25 Active lisinopril 20 MG tablet Take 1 tablet by mouth daily. 30 tablet 10/19/19 25 Active traZODone (Desyrel) 50 MG tablet Take 1 tablet by mouth nightly. 30 tablet 10/18/19 25 Active naloxone (Narcan) 4 mg/0.1 mL nasal spray 1. Give 1 spray in nostril for no/slow breathing or cannot wake after opioid use 2. Call 911 3. Repeat in other nostril if symptoms continue Call 911. Give 4 mg (1 spray) into one nostril. Repeat every 2-3 minutes as needed, alternating nostrils, until medical assistance arrives. 1 each 09/05/19 025 Discontinued(En tered in Error) hydrALAZINE (Apresoline) 25 MG tablet Take 1 tablet by mouth 3 times a day. 90 tablet 09/11/19 25 025 Discontinued(St op Taking at Discharge) isosorbide dinitrate (Isordil Titradose) 5 MG tablet Take 2 tablets by mouth 3 times a day for 30 doses. 60 tablet 09/11/19 25 025 Discontinued(St op Taking at Discharge) ergocalcifero l (Drisdol) 1.25 MG (75492 UT) capsule Take 1 capsule by mouth 1 time per week. 5 capsule 09/11/19 025 Discontinued magnesium oxide (Mag-Ox) 400 (240 Mg) MG tablet Take 1 tablet by mouth daily. 30 tablet 09/11/19 25 025 Discontinued(St op Taking at Discharge) metoprolol tartrate (Lopressor) 100 MG tablet Take 2 tablets by mouth daily. 60 tablet 09/11/19 25 025 Discontinued(St op Taking at Discharge) pantoprazole (Protonix) 40 MG EC tablet Take 1 tablet by mouth daily before breakfast. Do not crush, chew, or split. 30 tablet 09/11/19 25 025 Discontinued(St op Taking at Discharge) sevelamer (Renagel) 800 MG tablet Take 2 tablets by mouth 3 times a day with meals. Swallow tablet whole; do not crush, break, or chew. 180 tablet 09/11/19 25 025 Discontinued(St op Taking at Discharge) buprenorphine (Subutex) [address] 2 tablets under the tongue daily for 6 days. 12 tablet 10/16/19 025 Active Problems Problem Noted Date Diagnosed Date Decompensated cirrhosis 10/15/2024 Severe protein-calorie malnutrition 10/14/2024 End-stage renal disease needing dialysis 025 Heart failure, systolic, with acute decompensati on 08/24/2024 MR (mitral regurgitation) 08/24/2024 TR (tricuspid regurgitation) 08/24/2024 Hyperkalemia 08/11/2024 Bacteremia 08/07/2024 Pericardial effusion 07/30/2024 Atrial flutter with rapid ventricular response 0 07/30/2024 Mycoplasma pneumonia 05/15/2024 ESRD (end stage renal disease) 05/15/2024 Dyspnea 05/15/2024 Hepatitis C 05/15/2024 Smoker 05/15/2024 Marijuana abuse 05/15/2024 Ileus 05/15/2024 Chronic bilateral pleural effusions 05/15/2024 Anemia 05/15/2024 Hypertensive emergency 05/06/2024 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 Date Type Department Care Team Description 11/07/2024 Telephone [facility] [address] [place] [address] Rehana Ross, RN 10/28/2024 Patient Outreach [facility] [address] [place] [address] Tracee Negrete 10/22/2024 Patient Outreach [facility] [address], [address] [place] [address] Carole Avila LPN TCM 10/16/2024 Travel 10/15/2024 Travel 10/14/2024 2:30 PM EDT Anesthesia Event [facility] [address] [place] [address] Kayden Gloria MD 10/14/2024 Patient Outreach [facility] [address], [address] [place] [address] Deirdre Gandara 10/14/2024 Travel 10/13/2024 Travel 10/12/2024 Travel 10/12/2024 Orders Only External Location [address] [place] [address] Provider, External 10/12/2024 Orders Only External Location [address] [place] [address] Provider, External 10/10/2024 Patient Outreach [facility] [address] [place] [address] Deirdre Gandara 09/30/2024 Patient Outreach [facility] [address], [address] [place] [address] Tracee Negrete 09/29/2024 Telephone [facility] [address], [address] [place] [address] 09/24/2024 9:32 PM EDT - 09/24/2024 11:03 PM EDT Emergency [facility] Emergency Department [address] [place] [address] ESRD on dialysis ([facility]) (Primary Dx); Chronic anemia Discharge Disposition: Home or Self Care 09/24/2024 Travel 09/24/2024 Patient Outreach [facility] [address] [place] [address] Kalee Cardona 09/18/2024 Telephone [facility] [address] [place] [address] Angeles Carvalho RN 09/17/2024 Orders Only External Location [address] [place] [address] Deirdre Hou 09/17/2024 Patient Outreach [facility] [address] [place] [address] Deirdre Gandara 09/10/2024 Travel 09/09/2024 Orders Only [facility] Mineral [facility] [address], [address] [place] [address] Rosie Charlton MD ESRD (end stage renal disease) ([facility]) (Primary Dx) 09/09/2024 Orders Only [facility] Nephrology, Bone & Mineral Metabolism [address], [address] [place] [address] Rosie Charlton MD ESRD (end stage renal disease) ([facility]) (Primary Dx) 09/06/2024 Travel 09/05/2024 11:15 AM EDT Office Visit [facility] [address] [address] Allie Kong DDS Pain (Primary Dx) 09/05/2024 Travel 09/04/2024 Travel 09/03/2024 Patient Outreach [facility] [address] [address] Kalee Cardona 09/02/2024 Travel 08/30/2024 Travel 08/29/2024 Travel 08/28/2024 Travel 08/26/2024 Travel 08/25/2024 1:14 PM EDT Anesthesia Event [facility] [employer] [address] [place] [address] Naveen Saenz MD Mitchell, Shad A, CRNA, DNP 08/23/2024 Travel 08/22/2024 Travel 08/21/2024 Travel 08/20/2024 Patient Outreach [facility] [address] [place] [address] Tracee Negrete 08/19/2024 Travel 08/17/2024 Travel 08/16/2024 Travel 08/14/2024 Travel 08/13/2024 Patient Outreach [facility] [address] [place] [address] Tracee Negrete 08/13/2024 Travel 08/12/2024 Travel 08/11/2024 Travel 08/10/2024 Travel 08/09/2024 Travel 08/08/2024 Travel 08/07/2024 Travel from Last 3 Months Social History [...] answer 05/07/2024 How often do you attend [facility] or mormon services? Patient unable to answer 05/07/2024 Do you belong to any clubs o r organizations such as sikh groups, unions, fraternal or athletic groups, or [...] Never 07/31/2024 How often do you attend sikh or mormon serv ices? Never 07/31/2024 Do you belong to any clubs o r organizations such as sikh groups, unions, fraternal or athletic groups, or [...] medical care, and heating? Very hard 07/31/2024 [facility] - Occupational Stress [...] you got the money to buy more. Never true 10/23/19 25 Within the past 12 months, t he food you bought just didn't last and you didn't have money to get more. Never true 10/22/2024 PRAPARE - Transportation Answer Date Re corded In the past 12 months, has l ack of transportation kept you from medical appointments or from getting medications? No 10/06 In the past 12 months, has l ack of transportation kept you from meetings, work, or from getting things needed for daily living? No 10/22/2024 Housing Stability Vital Sign Answer Philippe e Recorded In the last 12 months, was t here a time when you were not able to pay the mortgage or rent on time? No 10/22/2024 In the past 12 months, how m any times have you moved where you were living? 1 10/22/2024 At any time in the past 12 m [facility], were you homeless or living in a usp (including now)? No 10/22/2024 [facility] Utilities Answer Date Recorded In the past 12 months has th e electric, gas, oil, or water company threatened to shut off services in your home? No 10/22/2024 CAGE ASSESSMENT Answer Date Recorded Cage unable [...] drink first t terri in the morning (EYE-APPLIQUE SEWER) to steady your nerves or to get rid of a hangover? 0 03/16/2022 CAGE Questionnaire Score 0 023 Sex and Gender Information Value Date Recorded Sex Assigned at Not on file Legal Sex Male 7:46 PM EDT Gender Identity Not on file Sexual Orientation Not on file Last Filed Vital Signs Vital Sign Reading Time Taken Comments Blood Pressure 132/91 10/17/2024 3:14 PM EDT Pulse 110 10/17/2024 3:14 PM EDT Temperature 36.5 C (97.7 F) 10/17/2024 3:14 PM EDT Respiratory Rate 16 10/16/2024 8:09 PM EDT Oxygen Saturation 98% 10/17/2024 3:14 PM EDT Inhaled Oxygen Concentration - - Weight 67 kg (147 lb 11.3 oz) 10/17/2024 6:00 AM EDT Height 182.9 cm (6') 10/14/2024 1:33 PM EDT Body Mass Index 20.03 10/14/2024 1:33 PM EDT Plan of Treatment Upcoming Encounters Date Type Department Care Team (Late st Contact Info) Description 12/02/2024 2:20 PM EDT Office Visit [facility] [address] [place] [address] Cory Archer MD [address] [place] [address] 12/30/2024 3:40 PM EST Office Visit [facility] [place] [address] [place] [address] Daniel Parsons MD [address] [place] [address] 01/13/2025 1:10 PM EST Appointment [facility] [address] [place] [address] Health Maintenance Due Date Last Done Comments [...] Vaccines (1 - 3-dose SCDM series) 2009 [id number] Vaccine (1 - season) 2024 [facility]-Influenza Vaccine (#1) 2024 [facility]- SDOH Screenings 04/12/2025 [facility]-Adult SDOH Screenings 04/12/2025 10/13/2024 [facility]-Zoster Vaccines (1 of 2) 01/04/2032 [facility]-HIV Screening Completed 08/01/2024, , 05/06/2024, Additional history exists [facility]-HIB Vaccines Aged Out No longer e ligible based on patient's age to complete this topic [facility]-IPV Vaccines Aged Out No longer e ligible based on patient's age to complete this topic [facility]-Rotavirus Vaccines Aged Out No lo nger eligible based on patient's age to complete this topic Goals Goal Patient Goal Type Associated Problems Recent Progress Patient-Stated? Author Autogenera elel Goal Care Plan Autogenerated Problem No Sergo Pedroza Autogenera elle Goal Care Plan Autogenerated Problem No Leisa Anaya RN Autogenera elle Goal Care Plan Autogenerated Problem No Kai Ying RN Autogenera elle Goal Care Plan Autogenerated Problem No Yasemin Bravo Procedures Procedure Name Priority Date/Time Associated Diagnosis Comments POCT GLUCOSE METER UNSOLICITED RESULTS Routine 10/16/2024 7:48 PM EDT POCT GLUCOSE METER UNSOLICITED RESULTS Routine 10/16/2024 6:06 PM EDT PHOSPHORUS, PLASMA Add-On 10/16/2024 9:10 AM EDT ACUTE HEPATITIS PANEL Pending Discharge 10/16/2024 9:10 AM EDT ESRD (end stage renal disease) (CMS/HCC) HEPATITIS B SURFACE ANTIBODY, QUANTITATIVE Pending Discharge 10/16/2024 9:10 AM EDT ESRD (end stage renal disease) (CMS/HCC) COMPREHENSIVE METABOLIC PANEL, PLASMA Routine 10/16/2024 9:10 AM EDT CBC WITH AUTO DIFFERENTIAL Routine 10/16/2024 9:10 AM EDT HEMODIALYSIS INPATIENT Routine 8:33 AM EDT ESRD (end stage renal disease) ([facility]) POCT GLUCOSE METER UNSOLICITED RESULTS Routine 10/15/2024 9:14 PM EDT HEPATIC FUNCTION PANEL Add-On 5:46 PM EDT IONIZED CALCIUM, WHOLE BLOOD Routine 10/15/2024 5:46 PM EDT BASIC METABOLIC PANEL, PLASMA Routine 10/15/2024 5:46 PM EDT CBC W/O DIFFERENTIAL Routine 10/15/2024 3:52 PM EDT POCT GLUCOSE METER UNSOLICITED RESULTS Routine 10/15/2024 11:49 AM EDT VAS US VENOUS DUPLEX LOWER EXTREMITY BILATERAL Routine 10/15/2024 11:05 AM EDT US ABDOMEN RUQ Routine 10/15/2024 11:05 AM EDT POCT GLUCOSE METER UNSOLICITED RESULTS Routine 10/15/2024 8:05 AM EDT POCT GLUCOSE METER UNSOLICITED RESULTS Routine 10/15/2024 1:12 AM EDT POCT GLUCOSE METER UNSOLICITED RESULTS Routine 10/14/2024 7:17 PM EDT POCT GLUCOSE METER UNSOLICITED RESULTS Routine 10/14/2024 6:41 PM EDT POCT GLUCOSE METER UNSOLICITED RESULTS Routine 10/14/2024 6:20 PM EDT POCT GLUCOSE METER UNSOLICITED RESULTS Routine 10/14/2024 6:00 PM EDT POCT GLUCOSE METER UNSOLICITED RESULTS Routine 10/14/2024 5:42 PM EDT EGD Routine 10/14/2024 2:50 PM EDT Decompensated cirrhosis (CMS/HCC) Hematemesis with nausea Duodenal ulcer Esophagitis SURGICAL PATHOLOGY EXAM Routine 10/15/19 2:43 PM EDT Opioid use disorder, severe, dependence (CMS/HCC) Hyperkalemia ESRD (end stage renal disease) (CMS/HCC) End-stage renal disease needing dialysis (CMS/HCC) HFrEF (heart failure with reduced ejection fraction) (CMS/HCC) PE (pulmonary thromboembolism) (CMS/HCC) Decompensated cirrhosis (CMS/HCC) Other ascites Coagulopathy (CMS/HCC) Transaminitis End stage chronic kidney disease (CMS/HCC) Hypervolemia, unspecified hypervolemia type Cirrhosis of liver with ascites, unspecified hepatic cirrhosis type (CMS/HCC) Hematemesis with nausea Other acute pulmonary embolism without acute cor pulmonale (CMS/HCC) Heart failure, systolic, with acute decompensation (CMS/HCC) Atrial flutter with rapid ventricular response (CMS/HCC) Duodenal ulcer Esophagitis POCT GLUCOSE METER UNSOLICITED RESULTS Routine 10/14/2024 1:04 PM EDT POCT GLUCOSE METER UNSOLICITED RESULTS Routine 10/14/2024 12:14 PM EDT HEMODIALYSIS INPATIENT Routine 7:25 AM EDT POCT GLUCOSE METER UNSOLICITED RESULTS Routine 10/14/2024 5:55 AM EDT THC URINE CONFIRM Routine 10/14/2024 3:12 AM EDT URINALYSIS MICROSCOPIC FOR UA REFLEX STAT 10/14/2024 3:12 AM EDT COMPREHENSIVE URINE DRUG SCREENING,QUALITATIVE ASSAY, >= 27 DRUG CLASSES Routine 10/14/2024 3:12 AM EDT DRUG ABUSE SCREEN, URINE Routine 10/14/2024 3:12 AM EDT URINE WHITESIDE PANEL STAT 10/14/2024 3:12 AM EDT URINALYSIS WITH REFLEX MICROSCOPIC STAT 10/14/2024 3:12 AM EDT URINALYSIS WITH REFLEX MICROSCOPIC AND CULTURE STAT 10/14/2024 3:12 AM EDT STREPTOCOCCUS PNEUMONIAE AND LEGIONELLA URINARY ANTIGEN Routine 10/14/2024 3:12 AM EDT COMPREHENSIVE METABOLIC PANEL, PLASMA Routine 10/14/2024 3:10 AM EDT CBC W/O DIFFERENTIAL Routine 10/14/2024 3:10 AM EDT IONIZED CALCIUM, WHOLE BLOOD Routine 10/14/2024 3:10 AM EDT PHOSPHORUS, PLASMA Routine 10/14/2024 3:10 AM EDT MAGNESIUM, PLASMA Routine 10/14/2024 3:10 AM EDT POCT GLUCOSE METER UNSOLICITED RESULTS Routine 10/13/2024 11:35 PM EDT POCT GLUCOSE METER UNSOLICITED RESULTS Routine 10/13/2024 5:53 PM EDT BODY FLUID, CYTOSPIN, PATHOLOGIST INTERPRETATION Routine 10/13/2024 4:44 PM EDT BODY FLUID CELL COUNT W/ MANUAL DIFFERENTIAL Routine 10/13/2024 4:44 PM EDT LACTATE DEHYDROGENASE, PERITONEAL FLUID Routine 10/13/2024 4:42 PM EDT GLUCOSE, PERITONEAL FLUID Routine 10/13/2024 4:42 PM EDT AMYLASE, PERITONEAL FLUID Routine 10/13/2024 4:42 PM EDT BILIRUBIN, TOTAL, BODY FLUID (SO) Routine 10/13/2024 4:42 PM EDT TRIGLYCERIDES, BODY FLUIDS (SO) Routine 10/13/2024 4:42 PM EDT TOTAL PROTEIN, PERITONEAL FLUID Routine 10/13/2024 4:42 PM EDT ALBUMIN, PERITONEAL FLUID Routine 10/13/2024 4:42 PM EDT BODY FLUID CULTURE AND GRAM STAIN Routine 10/13/2024 4:42 PM EDT HC ABDOMINAL PARACENTESIS DIAGNOSIS/THERAPY W IMAGING GUIDANCE Routine 10/13/2024 4:18 PM EDT Decompensated cirrhosis (CMS/HCC) ID ABDOM PARACENTESIS DX/THER W IMAGING GUIDANCE Routine 10/13/2024 4:18 PM EDT Decompensated cirrhosis (CMS/HCC) BLOOD GAS PANEL, VENOUS Routine 10/14/19 3:05 PM EDT LACTATE, VENOUS Routine 10/13/2024 3:05 PM EDT CBC W/O DIFFERENTIAL STAT 10/13/2024 3:05 PM EDT POCT GLUCOSE METER UNSOLICITED RESULTS Routine 10/13/2024 2:01 PM EDT ID CRITICAL CARE, E/M 30-74 MINUTES Routine 10/13/2024 12:37 PM EDT ESRD (end stage renal disease) (CMS/HCC) Decompensated cirrhosis (CMS/HCC) Other ascites Heart failure, systolic, with acute decompensation (CMS/HCC) Atrial flutter with rapid ventricular response (CMS/HCC) POCT GLUCOSE METER UNSOLICITED RESULTS Routine 10/13/2024 11:56 AM EDT HEPATIC FUNCTION PANEL Add-On 11:34 AM EDT SERUM DRUG SCREEN Routine 10/13/2024 11:34 AM EDT HEPATITIS C VIRUS (HCV) GENOTYPE Routine 10/13/2024 11:34 AM EDT HEPATITIS C VIRUS (HCV) QUANTITATIVE PCR Routine 10/13/2024 11:34 AM EDT RENAL FUNCTION PANEL, PLASMA STAT 10/13/2024 11:34 AM EDT ECHO, ADULT TRANSTHORACIC COMPLETE Routine 10/13/2024 10:37 AM EDT POCT GLUCOSE METER UNSOLICITED RESULTS Routine 10/13/2024 6:[address] ABDOMEN PELVIS WO IV CONTRAST STAT 10/13/2024 4:29 AM EDT HEMODIALYSIS INPATIENT Routine 2:01 AM EDT XR CHEST 1 VIEW Routine 10/13/2024 1:13 AM EDT BETA HYDROXYBUTYRIC ACID Add-On 10/12/2024 11:40 PM EDT PHOSPHORUS, PLASMA Routine 10/12/2024 11:40 PM EDT MAGNESIUM, PLASMA Routine 10/12/2024 11:40 PM EDT IONIZED CALCIUM, SERUM Routine 11:40 PM EDT CBC W/O DIFFERENTIAL Routine 10/12/2024 11:40 PM EDT BASIC METABOLIC PANEL, PLASMA Routine 10/12/2024 11:40 PM EDT TROPONIN T, HIGH SENSITIVITY, 2 HOUR, PLASMA Timed 10/12/2024 11:40 PM EDT POCT GLUCOSE METER UNSOLICITED RESULTS Routine 10/12/2024 10:42 PM EDT MULTI DRUG RESISTANCE TEST Routine 10/12/2024 10:37 PM EDT GERMÁN AURIS SURVEILLANCE BY PCR Routine 10/12/2024 10:37 PM EDT BLOOD CULTURE (AEROBIC/ANAEROBIC SET) STAT 10/12/2024 10:36 PM EDT ECG ADULT Routine 10/12/2024 9:42 PM EDT POCT GLUCOSE METER UNSOLICITED RESULTS Routine 10/12/2024 9:33 PM EDT HEPATITIS B SURFACE ANTIBODY, QUANTITATIVE Routine 10/12/2024 9:00 PM EDT ACUTE HEPATITIS PANEL Routine 10/12/2024 9:00 PM EDT ETHYLENE GLYCOL, PLASMA Routine 10/13/19 9:00 PM EDT CORTISOL Routine 10/12/2024 9:00 PM EDT ALCOHOL PROFILE, PLASMA Routine 10/13/19 9:00 PM EDT ID CRITICAL CARE, E/M 30-74 MINUTES Routine 10/12/2024 8:13 PM EDT Opioid use disorder, severe, dependence (CMS/HCC) Hyperkalemia End-stage renal disease needing dialysis (CMS/HCC) HFrEF (heart failure with reduced ejection fraction) (CMS/HCC) PE (pulmonary thromboembolism) (CMS/HCC) Decompensated cirrhosis (CMS/HCC) Other ascites Coagulopathy (CMS/HCC) Transaminitis BLOOD CULTURE (AEROBIC/ANAEROBIC SET) STAT 10/12/2024 7:42 PM EDT XR CHEST 1 VIEW STAT 10/12/2024 7:37 PM EDT ANTI XA LEVEL LOW MOLECULAR WEIGHT HEPARIN STAT 10/12/2024 7:25 PM EDT C-REACTIVE PROTEIN, PLASMA Add-On 10/12/2024 7:24 PM EDT SALICYLATE, QUANTITATIVE, PLASMA Add-On 10/12/2024 7:24 PM EDT CREATINE KINASE, TOTAL, PLASMA STAT Add-on 10/12/2024 7:24 PM EDT TSH Add-On 10/12/2024 7:24 PM EDT FREE T4, PLASMA Add-On 10/12/2024 7:24 PM EDT CYSTATIN C Add-On 10/12/2024 7:24 PM EDT PROCALCITONIN, PLASMA Add-On 10/12/2024 7:24 PM EDT PREALBUMIN, PLASMA Add-On 10/12/2024 7:24 PM EDT N-TERMINAL PROBNP, PLASMA Add-On 10/12/2024 7:24 PM EDT ACETAMINOPHEN, QUANTATATIVE, PLASMA Add-On 10/12/2024 7:24 PM EDT HEMOGLOBIN A1C Add-On 10/12/2024 7:24 PM EDT TYPE AND SCREEN STAT 10/12/2024 7:24 PM EDT AMMONIA, PLASMA STAT 10/12/2024 7:24 PM EDT PHOSPHORUS, PLASMA STAT 10/12/2024 7:24 PM EDT LIPASE, PLASMA STAT 10/12/2024 7:24 PM EDT N-TERMINAL PROBNP, PLASMA STAT 10/12/2024 7:24 PM EDT TROPONIN T, HIGH SENSITIVITY, 0 HOUR, PLASMA, REFLEX TO 2 HOUR STAT 10/12/2024 7:24 PM EDT BLOOD GAS PANEL, VENOUS STAT 10/13/19 7:24 PM EDT MAGNESIUM, PLASMA STAT 10/12/2024 7:24 PM EDT PROTHROMBIN TIME(PT) / INR STAT 10/12/2024 7:24 PM EDT COMPREHENSIVE METABOLIC PANEL, PLASMA STAT 10/12/2024 7:24 PM EDT CBC WITH AUTO DIFFERENTIAL STAT 10/12/2024 7:24 PM EDT ECG ADULT STAT 10/12/2024 7:12 PM EDT ID CRITICAL CARE, E/M 30-74 MINUTES Routine 10/12/2024 6:[address] THORACIC OUTSIDE IMAGES 10/12/2024 4:[address] MSK OUTSIDE IMAGES 10/12/2024 4:50 PM EDT MAGNESIUM, PLASMA STAT 09/24/2024 10:06 PM EDT [...] EDT ESRD (end stage renal disease) (CMS/HCC) 32 EXTRACTION, ERUPTED TOOTH OR EXPOSED ROOT [...] AM EDT ESRD (end stage renal disease) ([facility]) C-REACTIVE PROTEIN, PLASMA Pending Discharge 09/02/2024 8:41 AM EDT MAGNESIUM, PLASMA Pending Discharge 09/02/2024 8:41 AM EDT HEMODIALYSIS INPATIENT Routine 8:32 AM EDT ESRD (end stage renal disease) ([facility]) HEMODIALYSIS INPATIENT Routine 7:25 AM EDT ESRD (end stage renal disease) ([facility]) XR PANOREX Routine 08/29/2024 3:26 PM EDT MAGNESIUM, PLASMA Routine 08/29/2024 11:29 AM EDT MAGNESIUM, PLASMA Routine 08/28/2024 8:24 AM EDT RENAL FUNCTION PANEL, PLASMA Routine 08/28/2024 8:24 AM EDT CBC W/O DIFFERENTIAL Routine 08/28/2024 8:24 AM EDT C-REACTIVE PROTEIN, PLASMA Timed 08/28/2024 8:24 AM EDT HEMODIALYSIS INPATIENT Routine 8:05 AM EDT ESRD (end stage renal disease) ([facility]) POTASSIUM, PLASMA Pending Discharge 08/27/2024 9:04 AM [...] AM EDT ESRD (end stage renal disease) ([facility]) ECG ADULT Routine 08/25/2024 1:35 PM EDT CARDIOVERSION Routine 08/25/2024 1:27 PM EDT Atrial flutter with rapid ventricular response ([facility]) COMPREHENSIVE METABOLIC PANEL, PLASMA Routine 08/25/2024 12:11 [...] AM EDT ESRD (end stage renal disease) ([facility]) CT ANGIO CARDIAC STRUCTURE MORPHOLOGY Routine 08/22/2024 11:01 AM EDT RENAL FUNCTION PANEL, PLASMA Routine 08/22/2024 3:37 AM EDT PROTHROMBIN TIME(PT) / INR Routine 08/22/2024 3:37 AM EDT MAGNESIUM, PLASMA Routine 08/22/2024 3:37 AM EDT CBC W/O DIFFERENTIAL Routine 08/22/2024 3:37 AM EDT ECHO, ADULT TRANSTHORACIC LIMITED Routine 08/21/2024 2:20 PM EDT HEMODIALYSIS INPATIENT Routine 8:50 AM EDT ESRD (end stage renal disease) ([facility] [place]) RENAL FUNCTION PANEL, PLASMA Routine 08/21/2024 3:17 [...] AM EDT ESRD (end stage renal disease) ([facility]) ECG ADULT Routine 08/19/2024 7:26 AM EDT [...] EDT BLOOD GAS PANEL, VENOUS STAT 08/18/19 25 9:09 AM EDT CBC W/O DIFFERENTIAL Timed [...] AM EDT ESRD (end stage renal disease) ([facility] [facility] HEMOGLOBIN AND HEMATOCRIT, BLOOD STAT 08/16/2024 9:42 [...] OXYGEN THERAPY Routine 08/10/2024 8:00 PM EDT ID CRITICAL CARE, E/M 30-74 MINUTES Routine 08/10/2024 4:07 PM EDT ESRD (end stage renal disease) ([facility]) Bacteremia Opioid use disorder, severe, dependence ([facility]) Substance use disorder Acute respiratory failure with hypoxia Acute on chronic systolic heart failure ([facility]) Pericardial effusion UGIB (upper gastrointestinal bleed) POCT [...] EDT HEMODIALYSIS INPATIENT Routine 10:06 AM EDT ID CRITICAL CARE, E/M 30-74 MINUTES Routine 08/09/2024 8:44 AM EDT ESRD (end stage renal disease) ([facility]) Bacteremia Opioid use disorder, severe, dependence ([facility]) Substance use disorder Acute respiratory failure with hypoxia Acute on chronic systolic heart failure ([facility]) Pericardial effusion On mechanically assisted ventilation ([facility]) UGIB (upper gastrointestinal bleed) POCT GLUCOSE METER [...] unspecified organism, unspecified acute renal failure type ([facility]) ID INSERT NON-TUNNEL CV CATH Routine 08/08/2024 3:00 PM EDT Sepsis with acute renal failure without septic shock, due to unspecified organism, unspecified acute renal failure type ([facility]) XR CHEST 1 VIEW STAT 08/08/2024 2:23 PM EDT ID CRITICAL CARE, E/M 30-74 MINUTES Routine 08/08/2024 12:14 PM EDT ESRD (end stage renal disease) ([facility]) Bacteremia Opioid use disorder, severe, dependence ([facility]) Substance use disorder Acute respiratory failure with hypoxia Acute on chronic systolic heart failure ([facility] Pericardial effusion On mechanically assisted ventilation ([facility]) UGIB (upper gastrointestinal bleed) POCT GLUCOSE METER [...] (SO) Routine 08/07/2024 4:47 PM EDT AMYLASE, PANCREATIC FLUID (SO) Routine 08/07/2024 4:47 PM EDT [...] ECG ADULT STAT 08/07/2024 9:19 AM EDT ID CRITICAL CARE, E/M 30-74 MINUTES Routine 08/07/2024 8:12 AM EDT ESRD (end stage renal disease) ([facility]) Bacteremia SVT (supraventricular tachycardia) ([facility]) Opioid use disorder, severe, dependence ([facility]) Substance use disorder Acute respiratory failure with hypoxia Acute on chronic systolic heart failure ([facility] Pericardial effusion On mechanically assisted ventilation ([facility]) UGIB (upper gastrointestinal bleed) END TIDAL CO2 [...] MAGNESIUM, PLASMA Routine 08/07/2024 12:12 AM EDT HIV 1/2 ANTIBODY/ANTIGEN SCREEN WITH REFLEX TO HIV I/II DIFFERENTIATION Routine 08/01/2024 9:13 AM EDT from Last 3 Months or Most Recently Relevant to Health Maintenance Results * (ABNORMAL) POCT glucose meter (10/16/2024 7:48 PM EDT) Only the most recent of53 resultswithin the time period is included. POCT Glucose 102(H) 74 - 99 mg/dL 10/16/2024 7:50 PM EDT [facility] Comment:Accuracy of a glucos e result obtained from a capillary whole blood specimen relies upon adequate, non-compromised capillary blood flow. If the capillary glucose result is not consistent with the patient's clinical signs and symptoms, glucose testing should be repeated with either an arterial or venous sample on the glucometer or sent to the main labortory for testing. Comment 10/16/2024 7:50 PM EDT [facility] Foxer ID Charla Meltony 7:50 PM EDT [facility] Device ID [id number] 10/16/2024 7:50 PM EDT [facility] Specimen Type POC Capillary 10/16/2024 7:50 PM EDT [facility] Blood Capillary blood specimen / Unknown 10/16/2024 7:48 PM EDT 10/16/2024 7:50 PM EDT Chandrika Shields MD LAB POINT OF CARE TE ST DOCKED DEVICE UNSOLICITED RESULTS Final Result Performing Organization Address City/State/[facility] Co de Phone Number [facility] [address] [place] [address] * (ABNORMAL) Hepatitis B Surface Antibody, Quantitative (10/16/2024 9:10 AM EDT) Only the most recent of3 resultswithin the time period is included. [facility] Hepatitis B Surface Antibody, Quantitative >1,000.00 (H) NonReacti ve: <8, Grayzone: 8 - <12, Reactive: >= 12 mIU/mL 10/16/2024 12:20 PM EDT [facility] Comment: Reactive. Individual is considered immune to HBV infection. Blood Venous blood specimen / Unknown (Port) Long-term Catheter / Unknown 10/16/2024 9:10 AM EDT 10/16/2024 9:23 AM EDT Gurpreet Young NM LAB BLOOD ORDERABLES Final Result Performing Organization Address City/[facility]/ZIP Co de Phone Number [facility] [address] [place] [address] * Hepatitis panel, acute (10/16/2024 9:10 AM EDT) Only the most recent of3 resultswithin the time period is included. Pathologist [facility] Hepatitis B Surf Antigen Negative Negative 10/16/2024 12:23 PM EDT [facility] Hepatitis A Antibody IgM Negative Negative 10/16/2024 12:23 PM EDT [facility] Hepatitis B Core Antibody IgM Negative Negative 10/16/2024 12:23 PM EDT [facility] Blood Venous blood specimen / Unknown (Port) Long-term Catheter / Unknown 10/16/2024 9:10 AM EDT 10/16/2024 9:23 AM EDT Narrative [facility] - 10/16/2024 12:23 PM EDT Hepatitis C Antibody previously reported Positive on patient and will not be repeated on this panel. Patient is expected to test positive for Hepatitis C Antibody for the rest of their life. See previous results below: Hepatitis C Antibody Date Value Ref Range Status 03/15/2022 Positive (A) Negative Final Gurpreet VYAS LAB BLOOD ORDERABLES Final Result Performing Organization Address [facility] Co de Phone Number [facility] [address] [place] [address] * (ABNORMAL) CBC and Differential (10/16/2024 9:10 AM EDT) Only the most recent of13 resultswithin the time period is included. Pathologist [facility] WBC Count 5.83 3.70 - 10.30 10*3/uL LAB HEMATOLOGY METHOD 10/16/2024 9:26 AM EDT [facility] RBC Count 2.90(L) 4.60 - 6.10 10*6/uL LAB HEMATOLOGY METHOD 10/16/2024 9:26 AM EDT [facility] HGB 7.9(L) 13.7 - 17.5 g/dL LAB HEMATOLOGY METHOD 10/16/2024 9:26 AM EDT [facility] HCT 25.8(L) 40.0 - 51.0 % LAB HEMATOLOGY METHOD 10/16/2024 9:26 AM EDT [facility] Platelet Count 185 155 - 369 10*3/uL LAB HEMATOLOGY METHOD 10/16/2024 9:26 AM EDT [facility] MCV 89 79 - 98 fL LAB HEMATOLOGY METHOD 10/16/2024 9:26 AM EDT [facility] MCH 27.2 26.0 - 32.0 pg LAB HEMATOLOGY METHOD 10/16/2024 9:26 AM EDT [facility] MCHC 30.6(L) 30.7 - 35.5 g/dL LAB HEMATOLOGY METHOD 10/16/2024 9:26 AM EDT [facility] RDW 18.0(H) 11.5 - 14.5 % LAB HEMATOLOGY METHOD 10/16/2024 9:26 AM EDT [facility] MPV 9.6 8.8 - 12.5 fL LAB HEMATOLOGY METHOD 10/16/2024 9:26 AM EDT [facility] nRBC 0.0 <=0.0 per 100 WBCs LAB HEMATOLOGY METHOD 10/16/2024 9:26 AM EDT [facility] Differential Type Automated LAB HEMATOLOGY METHOD 10/16/2024 9:26 AM EDT [facility] Neutrophils % 71 % LAB HEMATOLOGY METHOD 10/16/2024 9:26 AM EDT [facility] Lymphocytes % 15 % LAB HEMATOLOGY METHOD 10/16/2024 9:26 AM EDT [facility] Monocytes % 9 % LAB HEMATOLOGY METHOD 10/16/2024 9:26 AM EDT [facility] Eosinophils % 3 % LAB HEMATOLOGY METHOD 10/16/2024 9:26 AM EDT [facility] Basophils % 1 % LAB HEMATOLOGY METHOD 10/16/2024 9:26 AM EDT [facility] Immature Granulocytes % 1 % LAB HEMATOLOGY METHOD 10/16/2024 9:26 AM EDT [facility] Neutrophils Absolute 4.20 1.60 - 6.10 10*3/uL LAB HEMATOLOGY METHOD 10/16/2024 9:26 AM EDT [facility] Lymphocytes Absolute 0.85(L) 1.20 - 3.90 10*3/uL LAB HEMATOLOGY METHOD 10/16/2024 9:26 AM EDT [facility] Monocytes Absolute 0.51 0.30 - 0.90 10*3/uL LAB HEMATOLOGY METHOD 10/16/2024 9:26 AM EDT [facility] Eosinophils Absolute 0.20 0.00 - 0.50 10*3/uL LAB HEMATOLOGY METHOD 10/16/2024 9:26 AM EDT [facility] Basophils Absolute 0.04 0.00 - 0.10 10*3/uL LAB HEMATOLOGY METHOD 10/16/2024 9:26 AM EDT [facility] Immature Granulocytes Absolute 0.03 0.00 - 0.06 10*3/uL LAB HEMATOLOGY METHOD 10/16/2024 9:26 AM EDT [facility] Blood Venous blood specimen / Unknown (Port) Long-term Catheter / Unknown 10/16/2024 9:10 AM EDT 10/16/2024 9:23 AM EDT Narrative [facility] - 10/16/2024 9:26 AM EDT Therapeutic decision making should be based on absolute values, rather than percentages. Chandrika Shields MD LAB BLOOD ORDERABLES Final Re sult Performing Organization Address [facility] Co de Phone Number [facility] [address] [place] [address] * (ABNORMAL) Phosphorus (10/16/2024 9:10 AM EDT) Only the most recent of19 resultswithin the time period is included. Phosphorus, Plasma 7.1(H) 2.5 - 4.5 mg/dL 10/16/2024 12:00 PM EDT [facility] Blood Venous blood specimen / Unknown (Port) Long-term Catheter / Unknown 10/16/2024 9:10 AM EDT 10/16/2024 9:23 AM EDT Chandrika Shields MD LAB BLOOD ORDERABLES Final Re sult Performing Organization Address City/[facility] Co de Phone Number [facility] [address] [place] [address] * (ABNORMAL) Comprehensive Metabolic Panel, Plasma (10/16/2024 9:10 AM EDT) Only the most recent of22 resultswithin the time period is included. Glucose, Plasma 112(H) 74 - 99 mg/dL 10/16/2024 9:43 AM [facility] BUN, Plasma 46(H) 7 - 21 mg/dL [facility]24 [facility] Creatinine, Plasma 5.30(H) 0.70 - 1.20 mg/dL 10/16/2024 9:43 AM [facility] BUN/Creatinine Ratio 9 10/16/2024 9:43 AM [facility] Sodium, Plasma 133(L) 136 - 145 mmol/L 10/16/2024 9:43 AM [facility] Potassium, Plasma 4.3 3.6 - 4.9 mmol/L 10/16/2024 9:43 AM [facility] Chloride, Plasma 96(L) 97 - 107 mmol/L 10/16/2024 9:43 AM [facility] CO2, Plasma 20(L) 22 - 29 mmol/L 10/16/2024 9:43 AM [facility] Anion Gap 17(H) 6 - 16 mmol/L 10/16/2024 9:43 AM [facility] Total Calcium, Plasma 7.2(L) 8.9 - 10.2 mg/dL 10/16/2024 9:43 AM [facility] Total Protein 5.7(L) 6.3 - 7.9 g/dL 10/16/2024 9:43 AM [facility] Albumin, Plasma 2.7(L) 3.5 - 5.2 g/dL 10/16/2024 9:43 AM [facility] AST, Plasma 149(H) 10 - 50 U/L 10/16/2024 9:43 AM [facility] ALT, Plasma 422(H) 10 - 50 U/L 10/16/2024 9:43 AM [facility] Alkaline Phosphatase, Plasma 177(H) 40 - 115 U/L 10/16/2024 9:43 AM [facility] Total Bilirubin, Plasma 0.2 0.2 - 1.1 mg/dL 10/16/2024 9:43 AM [facility] eGFRcr 13.0 mL/min/1.7 3m*2 10/16/2024 9:43 AM [facility] Comment:Reported eGFRcr in m L/min/1.73m2 is based the CKD-EPI 2020 equation that does not use a race coefficient. Blood Venous blood specimen / Unknown (Port) Long-term Catheter / Unknown 10/16/2024 9:10 AM EDT 10/16/2024 9:23 AM EDT Chandrika Shields MD LAB BLOOD ORDERABLES Final Re sult [facility] [address] [place] [address] * (ABNORMAL) Ionized calcium, whole blood (10/15/2024 5:46 PM EDT) Only the most recent of3 resultswithin the time period is included. Ionized Calcium, Whole Blood 4.0(L) 4.6 - 5.1 mg/dL LAB HEMATOLOGY METHOD 10/15/2024 4:44 PM EDT [facility] Blood Venous blood specimen / Unknown 10/15/2024 5:46 PM EDT 10/15/2024 4:41 PM EDT Janelle Meza APRN LAB BLOOD ORDERABLES Final Result [facility] [address] [place] [address] * (ABNORMAL) Hepatic Function Panel (10/15/2024 5:46 PM EDT) Only the most recent of3 resultswithin the time period is included. Direct Bilirubin, Plasma <0.2 <=0.3 mg/dL 10/16/2024 8:57 AM EDT [facility] Alkaline Phosphatase, Plasma 210(H) 40 - 115 U/L 10/16/2024 8:57 AM EDT [facility] Total Bilirubin, Plasma 0.3 0.2 - 1.1 mg/dL 10/16/2024 8:57 AM EDT [facility] Albumin, Plasma 2.8(L) 3.5 - 5.2 g/dL 10/16/2024 8:57 AM EDT [facility] Total Protein 6.0(L) 6.3 - 7.9 g/dL 10/16/2024 8:57 AM EDT [facility] ALT, Plasma 469(H) 10 - 50 U/L 10/16/2024 8:57 AM EDT [facility] AST, Plasma 154(H) 10 - 50 U/L 10/16/2024 8:57 AM EDT [facility] Blood Venous blood specimen / Unknown Venipuncture / Unknown 10/15/2024 5:46 PM EDT 10/15/2024 4:40 PM EDT us Chandrika Shields MD LAB BLOOD ORDERABLES Final Re sult [facility] [address] [place] [address] * (ABNORMAL) Basic metabolic panel (10/15/2024 5:46 PM EDT) Only the most recent of4 resultswithin the time period is included. Glucose, Plasma 80 74 - 99 mg/dL 10/15/2024 5:21 PM EDT [facility] BUN, Plasma 41(H) 7 - 21 mg/dL 10/15/2024 5:21 PM EDT [facility] Creatinine, Plasma 4.60(H) 0.70 - 1.20 mg/dL 10/15/2024 5:21 PM EDT [facility] BUN/Creatinine Ratio 9 10/15/2024 5:21 PM EDT [facility] Sodium, Plasma 135(L) 136 - 145 mmol/L 10/15/2024 5:21 PM EDT [facility] Potassium, Plasma 4.4 3.6 - 4.9 mmol/L 10/15/2024 5:21 PM EDT [facility] Chloride, Plasma 99 97 - 107 mmol/L 10/15/2024 5:21 PM EDT [facility] CO2, Plasma 21(L) 22 - 29 mmol/L 10/15/2024 5:21 PM EDT [facility] Anion Gap 15 6 - 16 mmol/L 10/15/2024 5:21 PM EDT [facility] Total Calcium, Plasma 7.3(L) 8.9 - 10.2 mg/dL 10/15/2024 5:21 PM EDT [facility] eGFRcr 15.4 mL/min/1.7 3m*2 10/15/2024 5:21 PM EDT [facility] Comment:Reported eGFRcr in m L/min/1.73m2 is based the CKD-EPI 2020 equation that does not use a race coefficient. Blood Venous blood specimen / Unknown Venipuncture / Unknown 10/15/2024 5:46 PM EDT 10/15/2024 4:40 PM EDT Janelle Meza APRN LAB BLOOD ORDERABLES Final Result [facility] [address] [place] [address] * (ABNORMAL) CBC W/O Differential (10/15/2024 3:52 PM EDT) Only the most recent of27 resultswithin the time period is included. WBC Count 6.40 3.70 - 10.30 10*3/uL LAB HEMATOLOGY METHOD 10/15/2024 4:43 PM EDT [facility] RBC Count 3.47(L) 4.60 - 6.10 10*6/uL LAB HEMATOLOGY METHOD 10/15/2024 4:43 PM EDT [facility] HGB 9.4(L) 13.7 - 17.5 g/dL LAB HEMATOLOGY METHOD 10/15/2024 4:43 PM EDT [facility] HCT 31.1(L) 40.0 - 51.0 % LAB HEMATOLOGY METHOD 10/15/2024 4:43 PM EDT [facility] Platelet Count 236 155 - 369 10*3/uL LAB HEMATOLOGY METHOD 10/15/2024 4:43 PM EDT [facility] MCV 90 79 - 98 fL LAB HEMATOLOGY METHOD 10/15/2024 4:43 PM EDT [facility] MCH 27.1 26.0 - 32.0 pg LAB HEMATOLOGY METHOD 10/15/2024 4:43 PM EDT [facility] MCHC 30.2(L) 30.7 - 35.5 g/dL LAB HEMATOLOGY METHOD 10/15/2024 4:43 PM EDT [facility] RDW 18.0(H) 11.5 - 14.5 % LAB HEMATOLOGY METHOD 10/15/2024 4:43 PM EDT [facility] MPV 9.5 8.8 - 12.5 fL LAB HEMATOLOGY METHOD 10/15/2024 4:43 PM EDT [facility] nRBC 0.3(H) <=0.0 per 100 WBCs LAB HEMATOLOGY METHOD 10/15/2024 4:43 PM EDT [facility] Blood Venous blood specimen / Unknown Venipuncture / Unknown 10/15/2024 3:52 PM EDT 10/15/2024 4:41 PM EDT us Clara Damon INSTRUCTIONAL TECHNOLOGY INSTRUCTOR, DNP LAB BLOOD ORDERABLE S Final Result [facility] [address] [place] [id number] * VAS US Venous Duplex Lower Extremity Bilateral (10/15/2024 11:05 AM EDT) Anatomical Region Laterality Modality Lower Extremities Bilateral Ultrasound Impressions 10/15/2024 12:23 PM EDT No evidence of deep venous thrombosis within the bilateral lower extremities. CRITICAL RESULT: No. COMMUNICATION: Per this written report. By electronically signing this report, I, the attending physician, attest that I have personally reviewed the images/data for the above examination(s) and I agree with the final edited report. Drafted by Ermelinda Sparrow MD on 10/15/2024 11:51 AM Final report signed by Edilia Louie MD on 10/15/2024 12:23 PM Narrative 10/15/2024 12:23 PM EDT CLINICAL INDICATION: Acute Limb Swelling TECHNIQUE: Multiplanar whiteside scale and Doppler vascular sonographic imaging and spectral analysis of the deep veins of bilateral lower extremities, from groin to calf, without and with compression. COMPARISON: None. FINDINGS: The visualized deep veins demonstrate flow and are compressible. No evidence of deep venous thrombosis. Procedure Note Edilia Louie MD - 10/15/2024 CLINICAL INDICATION: Acute Limb Swelling TECHNIQUE: Multiplanar whiteside scale and Doppler vascular sonographic imaging andspectral analysis of the deep veins of bilateral lower extremities, fromgroin to calf, without and with compression. COMPARISON: None. FINDINGS: The visualized deep veins demonstrate flow and are compressible. Noevidence of deep venous thrombosis. IMPRESSION: No evidence of deep venous thrombosis within the bilateral lowerextremities. CRITICAL RESULT: No. COMMUNICATION: Per this written report. By electronically signing this report, I, the attending physician, attestthat I have personally reviewed the images/data for the aboveexamination(s) and I agree with the final edited report. Drafted by Ermelinda Sparrow MD on 10/15/2024 11:51 AM Final report signed by Edilia Louie MD on 10/15/2024 12:23 PM us Clara Lobo Nelson INSTRUCTIONAL TECHNOLOGY INSTRUCTOR, DNP CV VASCULAR PROCEDU RES Final Result * US Abdomen RUQ (10/15/2024 11:05 AM EDT) Anatomical Region Laterality Modality Gallbladder Ultrasound Impressions 10/15/2024 12:21 PM EDT No overt cirrhosis. Diffusely echogenic hepatic parenchyma, steatosis versus parenchymal inflammation. Patent and antegrade main portal vein. CRITICAL RESULT: No. COMMUNICATION: Per this written report. By electronically signing this report, I, the attending physician, attest that I have personally reviewed the images/data for the above examination(s) and agree with the final edited report. Drafted by Ermelinda Sparrow MD on 10/15/2024 11:28 AM Final report signed by Edilia Louie MD on 10/15/2024 12:21 PM Narrative 10/15/2024 12:21 PM EDT CLINICAL INDICATION: acute liver injury TECHNIQUE: Multiplanar grayscale ultrasound of the right upper quadrant of the abdomen. COMPARISON: CT abdomen/pelvis 10/13/2024 Renal ultrasound 05/07/2024 FINDINGS: Visualized Pancreas: Partial imaging of the pancreas is unremarkable. Liver: Diffusely increased parenchymal echogenicity suggesting steatosis and/or parenchymal inflammation. No significant coarsening of the echotexture or irregularity of the capsular outline to suggest charles cirrhosis. No sonographically discernible focal hepatic lesions. Gallbladder: Sludge and calculi within the gallbladder without signs of acute cholecystitis. The mild wall thickening of the gallbladder is likely secondary to fluid third spacing. Bile Ducts: No intra-hepatic biliary ductal dilatation. No obvious extra-hepatic biliary ductal dilatation with the common duct measuring 4 mm at the seth hepatis. Right Kidney: Atrophic (7.5 cm length) and markedly echogenic consistent with chronic dysfunction. No hydronephrosis or discernible calculi. There is a complex 1.9 cm cystic lesion within the interpolar to lower polar region showing multiple septations of mild to moderate thickness, appearance similar to 08/07/2024 CT. Fluid Survey: Large volume ascites in the visualized right upper abdomen. Procedure Note Edilia Louie MD - 10/15/2024 CLINICAL INDICATION: acute liver injury TECHNIQUE: Multiplanar grayscale ultrasound of the right upper quadrant of theabdomen. COMPARISON: CT abdomen/pelvis 10/13/2024 Renal ultrasound 05/07/2024 FINDINGS: Visualized Pancreas: Partial imaging of the pancreas is unremarkable. Liver: Diffusely increased parenchymal echogenicity suggesting steatosisand/or parenchymal inflammation. No significant coarsening of theechotexture or irregularity of the capsular outline to suggest frankcirrhosis. No sonographically discernible focal hepatic lesions. Gallbladder: Sludge and calculi within the gallbladder without signs ofacute cholecystitis. The mild wall thickening of the gallbladder is likelysecondary to fluid third spacing. Bile Ducts: No intra-hepatic biliary ductal dilatation. No obviousextra-hepatic biliary ductal dilatation with the common duct measuring 4mm at the seth hepatis. Right Kidney: Atrophic (7.5 cm length) and markedly echogenic consistentwith chronic dysfunction. No hydronephrosis or discernible calculi. Thereis a complex 1.9 cm cystic lesion within the interpolar to lower polarregion showing multiple septations of mild to moderate thickness,appearance similar to 08/07/2024 CT. Fluid Survey: Large volume ascites in the visualized right upperabdomen. IMPRESSION: No overt cirrhosis. Diffusely echogenic hepatic parenchyma, steatosisversus parenchymal inflammation. Patent and antegrade main portal vein. CRITICAL RESULT: No. COMMUNICATION: Per this written report. By electronically signing this report, I, the attending physician, attestthat I have personally reviewed the images/data for the aboveexamination(s) and agree with the final edited report. Drafted by Ermelinda Sparrow MD on 10/15/2024 11:28 AM Final report signed by Edilia Louie MD on 10/15/2024 12:21 PM us Clara Carvalhop INSTRUCTIONAL TECHNOLOGY INSTRUCTOR, DNP IMG US PROCEDURES F inal Result * EGD KEITH NIXON; 10/14/2024 (10/14/2024 2:50 PM EDT) Anatomical Region Laterality Modality Endoscopy Narrative 10/14/2024 3:03 PM EDT Table formatting from the original result was not included. Impression: LA Grade D esophagitis in the middle and lower portions of the esophagus. Biopsies obtained to rule out infectious etiology. Duodenitis extending from the bulb through D2. Biopsies obtained. No duodenal ulcer observed. Post Procedure Diagnosis Duodenitis Esophagitis Recommendations Await pathology results Return to Floor - Resume previous diet. - Discontinue Octreotide and Ceftriaxone (for SBP prophylaxis) - Due to severe esophagitis, we recommend twice daily PPI and repeat EGD in 8 weeks. Findings and recommendations to be conveyed to the patient and referring provider. Indication Esophagitis, Duodenal ulcer, Hematemesis with nausea, Decompensated cirrhosis (CMS/HCC) Medications See anesthesia record for anesthesia administered medications. Staff Staff Role Kayden Gloria MD Anesthesiologist Dax Ernandez MD Fellow Alysha Jessica Endo [place] Eduin Greer RN Endo Nurse Kirsty Donald CRNA CRNA Rosenau, Jens, MD Proceduralist Clarke Mendoza Endo [place] Preprocedure A history and physical has been performed, and patient medication allergies have been reviewed. The patient's tolerance of previous anesthesia has been reviewed. The risks and benefits of the procedure and the sedation options and risks were discussed with the patient. All questions were answered and informed consent obtained. Details of the Procedure The patient underwent monitored anesthesia care, which was administered by an anesthesia professional. The patient's blood pressure, heart rate, level of consciousness, oxygen saturation and respirations were monitored throughout the procedure. The scope was introduced through the mouth and advanced to the second part of the duodenum. Insufflated with carbon dioxide. Retroflexion was performed in the cardia. The patient experienced no blood loss. The procedure was not difficult. The patient tolerated the procedure well. There were no apparent adverse events. Attestation I was present for the entire procedure Specimens ID Type Source Tests Collected by Time A : duodenal bx Tissue Duodenum SURGICAL PATHOLOGY EXAM Dax Ernandez MD 10/14/2024 1443 B : esophageal bx Tissue Esophagus SURGICAL PATHOLOGY EXAM Dax Ernandez MD 10/14/2024 1448 Findings Severe, generalized edematous and erythematous esophagitis with multiple mucosal breaks measuring 5 mm or more, continuous between folds, covering 75% or more of the circumference appearing with linear furrows and plaque in the upper third of the esophagus, middle third of the esophagus and lower third of the esophagus; performed 2 cold forceps biopsies. Esophagitis present from 26 cm from the incisors to the GEJ. No esophageal varices observed. Food bolus in the body of the stomach. Stomach otherwise appeared normal without limitations of examination. Moderate, generalized edematous and erythematous mucosa with erosion and loss of vascular pattern in the duodenal bulb and 2nd part of the duodenum; no bleeding was observed; performed cold forceps biopsy. us Krissy Jimenez MD GI PROCEDURE ORDERABLES F inal Result * Surgical Pathology Exam (10/14/2024 2:43 PM EDT) Case Report Surgical Pathology Case: [id number] Authorizing Provider: Keith Nixon MD Collected: 10/14/2024 1443 Ordering Location: [facility] Inpatient Received: 10/14/2024 1551 Pathologist: Lawrence Acuña DO Specimens: A) - Duodenum, duodenal bx B) - Esophagus, esophageal bx 10/15/2024 12:14 PM EDT [facility] Final Diagnosis A. SMALL INTESTINE, DUODENUM, BIOPSY: - FEATURES SUGGESTIVE OF CHRONIC NONSPECIFIC DUODENITIS. - NO EVIDENCE OF VILLOUS ABNORMALITY OR INTRAEPITHELIAL LYMPHOCYTOSIS. B. ESOPHAGUS, BIOPSY: - FOCAL FEATURES OF REFLUX RELATED CHANGES. 10/15/2024 12:14 PM EDT [facility] at 1214 EDT Clinical Information F11.20 - Opioid use disorder, severe, dependence (CMS/HCC) [ICD-10-CM] E87.5 - Hyperkalemia [ICD-10-CM] N18.6 - ESRD (end stage renal disease) (CMS/HCC) [ICD-10-CM] N18.6, Z99.2 - End-stage renal disease needing dialysis (CMS/HCC) [ICD-10-CM] I50.20 - HFrEF (heart failure with reduced ejection fraction) (CMS/HCC) [ICD-10-CM] I26.99 - PE (pulmonary thromboembolism) (CMS/HCC) [ICD-10-CM] K72.90, K74.60 - Decompensated cirrhosis (CMS/HCC) [ICD-10-CM] R18.8 - Other ascites [ICD-10-CM] D68.9 - Coagulopathy (CMS/HCC) [ICD-10-CM] R74.01 - Transaminitis [ICD-10-CM] N18.6 - End stage chronic kidney disease (CMS/HCC) [ICD-10-CM] E87.70 - Hypervolemia, unspecified hypervolemia type [ICD-10-CM] K74.60, R18.8 - Cirrhosis of liver with ascites, unspecified hepatic cirrhosis type (CMS/HCC) [ICD-10-CM] K92.0 - Hematemesis with nausea [ICD-10-CM] I26.99 - Other acute pulmonary embolism without acute cor pulmonale (CMS/HCC) [ICD-10-CM] I50.23 - Heart failure, systolic, with acute decompensation (CMS/HCC) [ICD-10-CM] I48.92 - Atrial flutter with rapid ventricular response (CMS/HCC) [ICD-10-CM] K26.9 - Duodenal ulcer [ICD-10-CM] K20.90 - Esophagitis [ICD-10-CM] EGD findings: - Severe, generalized edematous and erythematous esophagitis with multiple mucosal breaks measuring 5 mm or more, continuous between folds, covering 75% or more of the circumference appearing with linear furrows and plaque in the upper third of the esophagus, middle third of the esophagus and lower third of the esophagus. - Moderate, generalized edematous and erythematous mucosa with erosion and loss of vascular pattern in the duodenal bulb and 2nd part of the duodenum. 10/15/2024 12:14 PM EDT [facility] Gross Description A. DUODENAL BX Received in formalin labeled d uodenal biopsy , are 2 red-moseley soft fragments of tissue measuring from 0.3 cm to 0.7 cm in greatest dimension. Entirely submitted in cassette A1. Cold Time: <1m Penny C Calderon B. ESOPHAGEAL BX Received in formalin labeled e sophageal biopsy , are 2 white-red soft fragments of tissue measuring 0.4 cm each. Entirely submitted in cassette B1. Cold Time: <1m Penny Gee Mancera 10/15/2024 12:14 PM EDT [facility] Note: A resident was involved in the service. I attest I examined the relevant preparations for the specimens and confirmed the diagnosis or interpretation. 10/15/2024 12:14 PM EDT [facility] Tissue Duodenal structure / Unknown 10/14/2024 2:43 PM EDT 10/14/2024 3:51 PM EDT Tissue specimen (specimen) Esophageal structure / Unknown 10/14/2024 2:48 PM EDT 10/14/2024 3:51 PM EDT us Keith Nixon MD LAB PATHOLOGY ORDERABLES Final R esult Performing Organization Address City/[facility]/ZIP Co de Phone Number [facility] [address] [place] [address] * Streptococcus pneumoniae and Legionella Urinary Antigen (10/14/2024 3:12 AM EDT) Legionella pneumophila serogroup 1 Antigen Result (Urine) Negative Negative 10/14/2024 10:06 AM EDT [facility] Streptococcus pneumoniae Antigen Result (Urine) Negative Negative 10/14/2024 10:06 AM EDT [facility] Urine Urine specimen obtained by clean catch procedure / Unknown Non-blood Collection / Unknown 10/14/2024 3:12 AM EDT 10/14/2024 3:18 AM EDT us Najma Walker APRN LAB MICROBIOLOGY - GENERAL ORDERABLES Final Result [facility] [address] [place] [address] * Urine Whiteside Panel (10/14/2024 3:12 AM EDT) Extra Reflex urine culture not indicated 10/14/2024 3:38 AM EDT [facility] Urine Urine specimen obtained by clean catch procedure / Unknown Non-blood Collection / Unknown 10/14/2024 3:12 AM EDT 10/14/2024 3:18 AM EDT us Cece Miller MD LAB URINE ORDERABLES Final Resul t Performing Organization Address [facility] Co de Phone Number [facility] [address] [place] [address] * Urinalysis Microscopic Examination (10/14/2024 3:12 AM EDT) Urine Urine specimen obtained by clean catch procedure / Unknown Non-blood Collection / Unknown 10/14/2024 3:12 AM EDT 10/14/2024 3:18 AM EDT us Cece Miller MD LAB URINE ORDERABLES Final Resul t Performing Organization Address [facility] de Phone Number [facility] [address] [place] [address] * Drug Abuse Screen Urine (10/14/2024 3:12 AM EDT) Amphetamine Screen Urine Negative Cutoff: 500 ng/mL 10/14/2024 3:37 AM EDT [facility] Benzodiazepines Screen Urine Negative Cutoff: 200 ng/mL 10/14/2024 3:37 AM EDT [facility] Cannabinoid Screen Urine Presumptive positive. Confirmation by LC-MS/MS to follow. Cutoff: 50 ng/mL 10/14/2024 3:37 AM EDT [facility] Cocaine Screen Urine Negative Cutoff: 300 ng/mL 10/14/2024 3:37 AM EDT [facility] Barbiturate Screen Urine Negative Cutoff: 200 ng/mL 10/14/2024 3:37 AM EDT [facility] Opiate Screen Urine Negative Cutoff: 300 ng/mL 10/14/2024 3:37 AM EDT [facility] Methadone Screen Urine Negative Cutoff: 300 ng/mL 10/14/2024 3:37 AM EDT [facility] Buprenorphine Screen Urine Negative Cutoff: 10 ng/mL 10/14/2024 3:37 AM EDT [facility] Fentanyl Screen Urine Negative Cutoff: 1 ng/mL 10/14/2024 3:37 AM EDT [facility] Oxycodone Screen Urine Negative Cutoff: 100 ng/mL 10/14/2024 3:37 AM EDT [facility] Urine Urine specimen obtained by clean catch procedure / Unknown Non-blood Collection / Unknown 10/14/2024 3:12 AM EDT 10/14/2024 3:18 AM EDT [facility] URINE ORDERABLES Final Result Performing Organization Address City/[facility]/ZIP Co de Phone Number [facility] [address] [place] [address] * (ABNORMAL) THC Urine Confirm LCMSMS (10/14/2024 3:12 AM EDT) 9 Carboxy THC <10 <10 ng/mL 10/15/2024 6:19 AM EDT [facility] 9 Carboxy THC Glucuronide 116(H) <25 ng/mL 10/15/2024 6:19 AM EDT [facility] Urine Urine specimen obtained by clean catch procedure / Unknown Non-blood Collection / Unknown 10/14/2024 3:12 AM EDT 10/14/2024 3:18 AM EDT Narrative [facility] - 10/15/2024 6:19 AM EDT Drug analysis is confirmed by LC-MS/MS (LC Tandem Mass Spectrometry) on Urine specimens. This test was developed and its performance characteristics determined by [facility]. It has not been cleared or approved by the FDA. The laboratory is regulated under CLIA as qualified to perform high-complexity testing. This test is used for clinical purposes. Testing is performed at the [facility]. [facility] URINE ORDERABLES Final Result Performing Organization Address City/[facility]/ZIP Co de Phone Number [facility] [address] [place] [address] * (ABNORMAL) Comprehensive Urine Drug Screening, Qualitative Assay, >= 27 Drug Classes (53:12 AM EDT) Acetaminophen Negative Negative 10/18/2024 4:50 PM EDT [facility] Alprazolam Negative Negative 10/18/2024 4:50 PM EDT [facility] Amantadine Negative Negative 10/18/2024 4:50 PM EDT [facility] Amitriptyline Negative Negative 10/18/2024 4:50 PM EDT [facility] Amphetamine Negative Negative 10/18/2024 4:50 PM EDT [facility] Atenolol Negative Negative 10/18/2024 4:50 PM EDT [facility] Benzoylecgonine Negative Negative 4:50 PM EDT [facility] Bisoprolol Negative Negative 10/18/2024 4:50 PM EDT [facility] Bupropion Negative Negative 10/18/2024 4:50 PM EDT [facility] Butalbital Negative Negative 10/18/2024 4:50 PM EDT [facility] Carbamazepine Negative Negative 10/18/2024 4:50 PM EDT [facility] Carisoprodol Negative Negative 10/18/2024 4:50 PM EDT [facility] Chlorpheniramine Negative Negative 10/19/19 4:50 PM EDT [facility] Citalopram Negative Negative 10/18/2024 4:50 PM EDT [facility] Clindamycin Negative Negative 10/18/2024 4:50 PM EDT [facility] Clonidine Negative Negative 10/18/2024 4:50 PM EDT [facility] Clopidogrel / Ticlopidine Negative Negative 10/18/2024 4:50 PM EDT [facility] Cocaethylene Negative Negative 10/18/2024 4:50 PM EDT [facility] Cocaine Negative Negative 10/18/2024 4:50 PM EDT [facility] Codeine Negative Negative 10/18/2024 4:50 PM EDT [facility] Cyclobenzaprine Negative Negative 4:50 PM EDT [facility] Desvenlafaxine Negative Negative 10/18/2024 4:50 PM EDT [facility] Dextromethorphan Negative Negative 10/19/19 4:50 PM EDT [facility] Diazepam Negative Negative 10/18/2024 4:50 PM EDT [facility] Diltiazem Negative Negative 10/18/2024 4:50 PM EDT [facility] Diphenhydramine Negative Negative 4:50 PM EDT [facility] Doxepine Negative Negative 10/18/2024 4:50 PM EDT [facility] Doxylamine Negative Negative 10/18/2024 4:50 PM EDT [facility] EDDP-Methadone metabolite Negative Negative 10/18/2024 4:50 PM EDT [facility] Fentanyl Negative Negative 10/18/2024 4:50 PM EDT [facility] Fluconazole Negative Negative 10/18/2024 4:50 PM EDT [facility] Fluoxetine Negative Negative 10/18/2024 4:50 PM EDT [facility] Guaifenesin Negative Negative 10/18/2024 4:50 PM EDT [facility] Haloperidol Negative Negative 10/18/2024 4:50 PM EDT [facility] Heroin/6-JUSTIN Negative Negative 10/18/2024 4:50 PM EDT [facility] Hydrocodone Negative Negative 10/18/2024 4:50 PM EDT [facility] Hydroxyzine / Cetirizine metabolite Negative Negative 10/18/2024 4:50 PM EDT [facility] Ibuprofen Negative Negative 10/18/2024 4:50 PM EDT [facility] Imipramine Negative Negative 10/18/2024 4:50 PM EDT [facility] Ketamine Negative Negative 10/18/2024 4:50 PM EDT [facility] Labetolol Negative Negative 10/18/2024 4:50 PM EDT [facility] Lamotrigine Negative Negative 10/18/2024 4:50 PM EDT [facility] Levetiracetam Negative Negative 10/18/2024 4:50 PM EDT [facility] Lidocaine Positive(A) Negative 10/18/2024 4:50 PM EDT [facility] MDA Negative Negative 10/18/2024 4:50 PM EDT [facility] MDMA Negative Negative 10/18/2024 4:50 PM EDT [facility] Memantine Negative Negative 10/18/2024 4:50 PM EDT [facility] Meperidine Negative Negative 10/18/2024 4:50 PM EDT [facility] Meprobamate Negative Negative 10/18/2024 4:50 PM EDT [facility] Metaxalone Negative Negative 10/18/2024 4:50 PM EDT [facility] Methamphetamine Negative Negative 4:50 PM EDT [facility] Methocarbamol Negative Negative 10/18/2024 4:50 PM EDT [facility] Methylecgonine Negative Negative 10/18/2024 4:50 PM EDT [facility] Metoclopramide Negative Negative 10/18/2024 4:50 PM EDT [facility] Metoprolol Negative Negative 10/18/2024 4:50 PM EDT [facility] Metronidazole Negative Negative 10/18/2024 4:50 PM EDT [facility] Midazolam Negative Negative 10/18/2024 4:50 PM EDT [facility] Midazolam Metabolite Negative Negative 10/18/2024 4:50 PM EDT [facility] Mirtazapine Negative Negative 10/18/2024 4:50 PM EDT [facility] Misc Test Result Negative Negative 10/19/19 4:50 PM EDT [facility] Naproxen Negative Negative 10/18/2024 4:50 PM EDT [facility] Nefazodone Negative Negative 10/18/2024 4:50 PM EDT [facility] Norfentanyl Negative Negative 10/18/2024 4:50 PM EDT [facility] Nortriptyline Negative Negative 10/18/2024 4:50 PM EDT [facility] Ordanstron Negative Negative 10/18/2024 4:50 PM EDT [facility] Oxcarbazepine Negative Negative 10/18/2024 4:50 PM EDT [facility] Oxycodone Negative Negative 10/18/2024 4:50 PM EDT [facility] Paroxethine Negative Negative 10/18/2024 4:50 PM EDT [facility] Phenobarbital Negative Negative 10/18/2024 4:50 PM EDT [facility] Phentermine Negative Negative 10/18/2024 4:50 PM EDT [facility] Phenytoin Negative Negative 10/18/2024 4:50 PM EDT [facility] Primidone Negative Negative 10/18/2024 4:50 PM EDT [facility] Promethazine Negative Negative 10/18/2024 4:50 PM EDT [facility] Propofol Negative Negative 10/18/2024 4:50 PM EDT [facility] Propranolol Negative Negative 10/18/2024 4:50 PM EDT [facility] Quetiapine Negative Negative 10/18/2024 4:50 PM EDT [facility] Quinine Negative Negative 10/18/2024 4:50 PM EDT [facility] Rantidine Negative Negative 10/18/2024 4:50 PM EDT [facility] Sertraline Negative Negative 10/18/2024 4:50 PM EDT [facility] Spironolactone Negative Negative 10/18/2024 4:50 PM EDT [facility] Tizanidine Negative Negative 10/18/2024 4:50 PM EDT [facility] Topiramate Negative Negative 10/18/2024 4:50 PM EDT [facility] Tramadol Negative Negative 10/18/2024 4:50 PM EDT [facility] Trazadone/ Trazadone metabolite Negative Negative 10/18/2024 4:50 PM EDT [facility] Trimethoprim Negative Negative 10/18/2024 4:50 PM EDT [facility] Valproic Acid Negative Negative 10/18/2024 4:50 PM EDT [facility] Venlafaxine Negative Negative 10/18/2024 4:50 PM EDT [facility] Verapamil Negative Negative 10/18/2024 4:50 PM EDT [facility] Zolpidem Negative Negative 10/18/2024 4:50 PM EDT [facility] Xylazine Negative Negative 10/18/2024 4:50 PM EDT [facility] Urine Urine specimen obtained by clean catch procedure / Unknown Non-blood Collection / Unknown 10/14/2024 3:12 AM EDT 10/14/2024 3:18 AM EDT us Najma Lobo Bishop [facility] URINE ORDERABLES Final Result [facility] [address] [place] [address] * (ABNORMAL) Urinalysis with reflex microscopic (Culture NOT Included) (10/14/2024 3:12 AM EDT) Color, Urine Yellow LAB URINALYSIS - AUTOMATED METHOD 10/14/2024 3:37 AM EDT [facility] Clarity, Urine Clear LAB URINALYSIS - AUTOMATED METHOD 10/14/2024 3:37 AM EDT [facility] Spec [place], Urine 1.020 1.005 - 1.030 LAB URINALYSIS - AUTOMATED METHOD 10/14/2024 3:37 AM EDT [facility] pH, Urine 8.0 5.0 - 8.0 LAB URINALYSIS - AUTOMATED METHOD 10/14/2024 3:37 AM EDT [facility] Protein, Urine >=300(A) Negative mg/dL LAB URINALYSIS - AUTOMATED METHOD 10/14/2024 3:37 AM EDT [facility] Glucose, Urine 100(A) Negative mg/dL LAB URINALYSIS - AUTOMATED METHOD 10/14/2024 3:37 AM EDT [facility] Ketones, Urine Negative Negative mg/dL LAB URINALYSIS - AUTOMATED METHOD 10/14/2024 3:37 AM EDT [facility] Blood, Urine Trace(A) Negative LAB URINALYSIS - AUTOMATED METHOD 10/14/2024 3:37 AM EDT [facility] Bilirubin, Urine Negative Negative LAB URINALYSIS - AUTOMATED METHOD 10/14/2024 3:37 AM EDT [facility] Urobilinogen, Urine 0.2 0.2 to 1.0 mg/dL LAB URINALYSIS - AUTOMATED METHOD 10/14/2024 3:37 AM EDT [facility] Leukocytes, Urine Negative Negative LAB URINALYSIS - AUTOMATED METHOD 10/14/2024 3:37 AM EDT [facility] Nitrite, Urine Negative Negative LAB URINALYSIS - AUTOMATED METHOD 10/14/2024 3:37 AM EDT [facility] RBC, Urine 1 0 to 3 /HPF 10/14/2024 3:37 AM EDT [facility] Comment:This result was prev iously suppressed from the chart. WBC, Urine 0 - 5 0 to 5 /HPF 10/14/2024 3:37 AM EDT [facility] Comment:This result was prev iously suppressed from the chart. Squamous Epithelial Cells 0 - 2 0 to 5 /HPF 10/14/2024 3:37 AM EDT [facility] Comment:This result was prev iously suppressed from the chart. Hyaline Casts 0 - 2 0 to 5 /LPF 10/14/2024 3:37 AM EDT [facility] Comment:This result was prev iously suppressed from the chart. Bacteria, Urine Negative Negative 10/14/2024 3:37 AM EDT [facility] Comment:This result was prev iously suppressed from the chart. Urine Urine specimen obtained by clean catch procedure / Unknown Non-blood Collection / Unknown 10/14/2024 3:12 AM EDT 10/14/2024 3:18 AM EDT Narrative [facility] - 10/14/2024 3:37 AM EDT Performed by manual method Cece Miller MD LAB URINE ORDERABLES Final Resul t Performing Organization Address City/[facility]/ZIP Co de Phone Number [facility] [address] [place] [address] * Magnesium, Plasma (10/14/2024 3:10 AM EDT) Only the most recent of30 resultswithin the time period is included. Pathologist [facility] Magnesium, Plasma 2.0 1.9 - 2.4 mg/dL 10/14/2024 3:47 AM EDT [facility] Blood Venous blood specimen / Unknown Venipuncture / Unknown 10/14/2024 3:10 AM EDT 10/14/2024 3:17 AM EDT Clara Damon APRN, JAZMINE LAB BLOOD ORDERABLE S Final Result Performing Organization Address City/[facility]/ZIP Co de Phone Number [facility] [address] [place] [address] * Body Fluid Cell Count With Diff - Ascites (10/13/2024 4:44 PM EDT) Only the most recent of2 resultswithin the time period is included. Pathologist [facility] Color, Body fluid Yellow LAB HEMATOLOGY METHOD 10/13/2024 6:44 PM EDT [facility] Appearance, Body fluid Clear LAB HEMATOLOGY METHOD 10/13/2024 6:44 PM EDT [facility] Volume, Body fluid 9.0 cc LAB HEMATOLOGY METHOD 10/13/2024 6:44 PM EDT [facility] Fluid Container Tube 2 LAB HEMATOLOGY METHOD 10/13/2024 6:44 PM EDT [facility] Red Blood Cell Count, Body fluid 191 uL LAB HEMATOLOGY METHOD 10/13/2024 6:44 PM EDT [facility] Comment:Test performed by albina granados. Total Nucleated Cell Count, Body fluid 131 uL LAB HEMATOLOGY METHOD 10/13/2024 6:44 PM EDT [facility] Neutrophils %, Body fluid 8 % LAB HEMATOLOGY METHOD 10/13/2024 6:44 PM EDT [facility] Lymphocytes %, Body fluid 64 % LAB HEMATOLOGY METHOD 10/13/2024 6:44 PM EDT [facility] Monocytes/Macro phages %, Body fluid 24 % LAB HEMATOLOGY METHOD 10/13/2024 6:44 PM EDT [facility] Eosinophils %, Body fluid 0 % LAB HEMATOLOGY METHOD 10/13/2024 6:44 PM EDT [facility] Lining/Mesothel ial Cells %, Body fluid 4 % LAB HEMATOLOGY METHOD 10/13/2024 6:44 PM EDT [facility] Neutrophils Absolute (PMN), Body fluid 10 uL LAB HEMATOLOGY METHOD 10/13/2024 6:44 PM EDT [facility] Lymphocytes Absolute, Body fluid 84 uL LAB HEMATOLOGY METHOD 10/13/2024 6:44 PM EDT [facility] Monocytes/Macro phages Absolute, Body fluid 31 uL LAB HEMATOLOGY METHOD 10/13/2024 6:44 PM EDT [facility] Eosinophils Absolute, Body fluid 0 uL LAB HEMATOLOGY METHOD 10/13/2024 6:44 PM EDT [facility] Basophils Absolute, Body fluid 0 uL LAB HEMATOLOGY METHOD 10/13/2024 6:44 PM EDT [facility] Lining/Mesothel ial Cells Absolute, Body fluid 5 uL LAB HEMATOLOGY METHOD 10/13/2024 6:44 PM EDT [facility] Comment, Body fluid None LAB HEMATOLOGY METHOD 10/13/2024 6:44 PM EDT [facility] Comment:This is an appended report. These results have been appended to a previously preliminary verified report. Basophils %, Body fluid 0 % LAB HEMATOLOGY METHOD 10/13/2024 6:44 PM EDT [facility] Body Fluid Peritoneal fluid / Unknown Non-blood Collection / Unknown 10/13/2024 4:44 PM EDT 10/13/2024 4:56 PM EDT Clara Damon APRN, JAZMINE LAB BODY FL UIDS AND STOOLS ORDERABLES NO SPECIMEN TYPE/SOURCE Final Result Performing Organization Address City/[facility]/ZIP Co de Phone Number [facility] [address] [place] [address] * Body fluid, cytospin, pathologist interpretation (10/13/2024 4:44 PM EDT) Only the most recent of2 resultswithin the time period is included. Specimen Type Body Fluid LAB HEMATOLOGY METHOD 10/14/2024 1:34 PM EDT [facility] Specimen Source, Body Fluid Peritoneal Fluid LAB HEMATOLOGY METHOD 10/14/2024 1:34 PM EDT [facility] Clinical Diagnosis, Body Fluid Ascites LAB HEMATOLOGY METHOD 10/14/2024 1:34 PM EDT [facility] Interpretation , Body Fluid Predominantly chronic inflammatory cells, degenerating histiocytes and mesothelial cells 10/14/2024 1:34 PM EDT [facility] Pathologist Signature, Body Fluid Charlotte Yip MD 10/14/2024 1:34 PM EDT [facility] Comment:Reviewed by: Charlotte Yip MD LAB CP ASR DISCLAIMER No 10/14/2024 1:34 PM EDT [facility] Body Fluid Peritoneal fluid / Unknown Non-blood Collection / Unknown 10/13/2024 4:44 PM EDT 10/13/2024 4:56 PM EDT Clara Damon APRN, JAZMINE LAB BODY FLUIDS AND STOOLS ORDERABLES Final Result Performing Organization Address City/[facility]/ZIP Co de Phone Number [facility] [address] [place] [address] * Amylase, Peritoneal Fluid (10/13/2024 4:42 PM EDT) Amylase Peritoneal Fluid 62 U/L 10/13/2024 6:36 PM EDT [facility] Ascites Peritoneal cavity structure / Unknown 10/13/2024 4:42 PM EDT 10/13/2024 4:56 PM EDT Narrative [facility] - 10/13/2024 6:36 PM EDT Reference Values: No established reference interval. Interpret with caution. This test was developed and its performance characteristics determined by [facility]. The U.S. Food and Drug Administration has not approved or cleared this test; however, FDA clearance or approval is not currently required for clinical use. The results are not intended to be used as the sole means for clinical diagnosis or patient management decisions. Peritoneal Fluid: In normal peritoneal fluid, amylase activity is comparable to that observed in serum or plasma. A peritoneal fluid value that is three to five times greater than a corresponding serum/plasma level suggests an underlying pancreatic process, including acute pancreatitis and pancreatic pseudocyst. Note: Interpretive information was assimilated from a literature search (e.g., studies, guidelines, textbooks) related to body fluid testing. Information should be interpreted with caution because the literature sources cross many decades, analyzers and reagent formulations. All information should be viewed in the context of the patient's clinical presentation. Body fluid amylase should not be used as sole evidence of malignancy for diagnostic purposes and should be reviewed in correlation with cytology, plasma/serum results, and other clinical evidence. Clara Damon INSTRUCTIONAL TECHNOLOGY INSTRUCTOR, DNP LAB BODY FLUIDS AND STOOLS ORDERABLES Final Result [facility] [address] [place] [address] * Albumin - Ascites (10/13/2024 4:42 PM EDT) Albumin, Peritoneal Fluid 2.4 g/dL 10/13/2024 6:36 PM EDT [facility] Ascites Peritoneal cavity structure / Unknown 10/13/2024 4:42 PM EDT 10/13/2024 4:56 PM EDT Narrative [facility] - 10/13/2024 6:36 PM EDT REPORTING RESULTS Reference Values: No established reference interval. Results should be interpreted in comparison to the concentration in blood and in conjunction with the clinical context. This test was developed and its performance characteristics determined by [facility]. The U.S. Food and Drug Administration has not approved or cleared this test; however, FDA clearance or approval is not currently required for clinical use. The results are not intended to be used as the sole means for clinical diagnosis or patient management decisions. Clara Damon APRN, DNP LAB BODY FLUIDS AND STOOLS ORDERABLES Final Result Performing Organization Address City/[facility]/ZIP Co de Phone Number [facility] [address] [place] [address] * BILIRUBIN, TOTAL, BODY FLUID (SO) (10/13/2024 4:42 PM EDT) Bilirubin, Total, Body Fluid 0.3 mg/dL 10/15/2024 10:08 PM EDT [facility] ([facility]) Bilirubin, Total Fluid Source Peritoneal fl 10/15/2024 10:08 PM EDT [facility] ([employer]) Peritoneal Fluid Peritoneal cavity structure / Unknown Non-blood Collection / Unknown 10/13/2024 4:42 PM EDT 10/13/2024 4:56 PM EDT Narrative [facility] - 10/15/2024 10:08 PM EDT INTERPRETIVE INFORMATION: Bilirubin, Total, Body Fluid For information on body fluid reference ranges and/or interpretive guidance visit [email or web address]/ This test was developed and its performance characteristics determined by [employer]. It has not been cleared or approved by the US Food and Drug Administration. This test was performed in a CLIA certified laboratory and is intended for clinical purposes. Performed By: [facility] [address] [place], [place] [id number] Cafeteria Clerk: Deangelo Gee MD, PhD CLIA Number: [id number] Clara Damon APRN, DNP LAB BODY FLUIDS AND STOOLS ORDERABLES Final Result Performing Organization Address [facility] Co de Phone Number [facility] ([employer]) [address] [place] [id number] * Body Fluid Culture and Gram Stain (10/13/2024 4:42 PM EDT) Only the most recent of2 resultswithin the time period is included. Culture No growth at day 4 2024 1:06 PM EDT [facility] Gram Stain Result Rare Polymorphonuclear leukocytes 10/16/2024 1:06 PM EDT [facility] Gram Stain Result No organisms seen 10/16/2024 1:06 PM EDT [facility] Peritoneal Fluid Peritoneal cavity structure / Unknown Non-blood Collection / Unknown 10/13/2024 4:42 PM EDT 10/13/2024 4:56 PM EDT Clara Damon APRN, DNP LAB MICROBIOLOGY - GENERAL ORDERABLES Final Result [facility] [address] [place] [address] * Triglyceride - Ascites (10/13/2024 4:42 PM EDT) Triglyceride, Fluid 44 mg/dL 10/16/2024 5:52 AM EDT [facility] ([facility]) Triglyceride Fluid Source Peritoneal fl 10/16/2024 5:52 AM EDT [facility] ([facility]) Peritoneal Fluid Non-blood Collection / Unknown 10/13/2024 4:42 PM EDT 10/13/2024 4:56 PM EDT Narrative [facility] ([facility]) - 10/16/2024 5:52 AM EDT INTERPRETIVE INFORMATION: Triglycerides, Fluid For information on body fluid reference ranges and/or interpretive guidance visit [email or web address]/ This test was developed and its performance characteristics determined by [facility]. It has not been cleared or approved by the US Food and Drug Administration. This test was performed in a CLIA certified laboratory and is intended for clinical purposes. Performed By: [facility] [address] [place] [id number] Cafeteria Clerk: Deangelo Gee MD, PhD CLIA Number: [id number] Clara Damon APRN, DNP LAB REF LAB BLOOD A ND FLUID ORD Final Result [facility] ([facility]) [address] [place] [address] * Protein - Ascites (10/13/2024 4:42 PM EDT) Total Protein, Fluid 4.6 g/dL 10/13/2024 6:36 PM EDT [facility] Ascites Peritoneal cavity structure / Unknown 10/13/2024 4:42 PM EDT 10/13/2024 4:56 PM EDT Narrative [facility] - 10/13/2024 6:36 PM EDT This test was developed and its performance characteristics determined by [facility]. The U.S. Food and Drug Administration has not approved or cleared this test. However, FDA clearance or approval is not currently required for clinical use. The results are not intended to be used as the sole means for clinical diagnosis or patient management decisions. Clara Damon APRN, DNP LAB BODY FLUIDS AND STOOLS ORDERABLES Final Result [facility] [address] [place] [address] * LDH - Ascites (10/13/2024 4:42 PM EDT) LDH, Fluid 242 U/L 10/13/2024 6:36 PM EDT [facility] Ascites Peritoneal cavity structure / Unknown 10/13/2024 4:42 PM EDT 10/13/2024 4:56 PM EDT Narrative [facility] - 10/13/2024 6:36 PM EDT No established reference interval. Results [...] for plasma; 3) Glucose < 50 mg/dL. Clara Damon APRN, DNP LAB BODY FLUIDS AND STOOLS ORDERABLES Final Result Performing Organization Address [facility] Co de Phone Number [facility] [address] [place] [address] * Glucose - Ascites (10/13/2024 4:42 PM EDT) Glucose, Fluid 84 mg/dL 10/13/2024 6:36 PM EDT [facility] Ascites Peritoneal cavity structure / Unknown 10/13/2024 4:42 PM EDT 10/13/2024 4:56 PM EDT Narrative [facility] - 10/13/2024 6:36 PM EDT Peritoneal/Ascites No established reference interval. [...] for plasma; 3) Glucose < 50 mg/dL. Clara Damon APRN, DNP LAB BODY FLUIDS AND STOOLS ORDERABLES Final Result Performing Organization Address [facility] de Phone Number [facility] [address] [place] [address] * ID ABDOM PARACENTESIS DX/THER W IMAGING GUIDANCE, HC ABDOMINAL PARACENTESIS DIAGNOSIS/THERAPY W IMAGING GUIDANCE (10/13/2024 4:18 PM EDT) Anatomical Region Laterality Modality Other Narrative 10/13/2024 4:18 PM EDT Clara Damon APRN, DNP 10/14/2024 6:31 AM Paracentesis Performed by: Clara Damon APRN, DNP Authorized by: Clara Damon APRN, DNP Consent: Consent obtained: Verbal and written Consent given by: Patient Risks, benefits, and alternatives were discussed: yes Risks discussed: Bleeding, bowel perforation, infection and pain Alternatives discussed: No treatment [place] protocol: Procedure explained and questions answered to patient or proxy's satisfaction: yes Relevant documents present and verified: yes Test results available: yes Imaging studies available: yes Required blood products, implants, devices, and special equipment available: yes Site/side marked: yes Patient identity confirmed: Verbally with patient, arm band and hospital-assigned identification number Pre-procedure details: Procedure purpose: Diagnostic Preparation: Patient was prepped and draped in usual sterile fashion Anesthesia: Anesthesia method: Local infiltration Local anesthetic: Lidocaine 2% w/o epi Procedure details: Ultrasound guidance: yes Puncture site: L lower quadrant Fluid removed amount: 8L Fluid appearance: Serous and yellow Dressinx4 sterile gauze Post-procedure details: Procedure completion: Tolerated well, no immediate complications Clara Damon APRN, JAZMINE IN CLINIC/BEDSIDE O RDERABLES Edited Result - Final * Lactate, venous (10/13/2024 3:05 PM EDT) Pathologist [facility] Lactate, Venous, Whole Blood 1.4 0.5 - 2.2 mmol/L LAB HEMATOLOGY METHOD 10/13/2024 3:38 PM EDT [facility] Blood Venous blood specimen / Unknown Venipuncture / Unknown 10/13/2024 3:05 PM EDT 10/13/2024 3:24 PM EDT Krissy Jimenez MD LAB BLOOD ORDERABLES Estefany galloway Result [facility] [address] [place] [address] * (ABNORMAL) Blood gas panel, venous (10/13/2024 3:05 PM EDT) Only the most recent of3 resultswithin the time period is included. pH, Venous 7.40 7.32 - 7.43 LAB HEMATOLOGY METHOD 10/13/2024 3:38 PM EDT [facility] pCO2, Venous 38(L) 40 - 55 mmHg LAB HEMATOLOGY METHOD 10/13/2024 3:38 PM EDT [facility] pO2, Venous 53(H) 25 - 40 mmHg LAB HEMATOLOGY METHOD 10/13/2024 3:38 PM EDT [facility] SO2, Measured, Venous 83(H) 65 - 80 % LAB HEMATOLOGY METHOD 10/13/2024 3:38 PM EDT [facility] Base Excess, Venous -0.8 -2.0 - 3.0 mmol/L LAB HEMATOLOGY METHOD 10/13/2024 3:38 PM EDT [facility] Bicarbonate, Calculated, Venous 24 22 - 26 mmol/L LAB HEMATOLOGY METHOD 10/13/2024 3:38 PM EDT [facility] Hematocrit, Whole Blood 36.7(L) 40.0 - 51.0 % LAB HEMATOLOGY METHOD 10/13/2024 3:38 PM EDT [facility] Sodium, Whole Blood 137 136 - 145 mmol/L LAB HEMATOLOGY METHOD 10/13/2024 3:38 PM EDT [facility] Potassium, Whole Blood 5.0(H) 3.6 - 4.9 mmol/L LAB HEMATOLOGY METHOD 10/13/2024 3:38 PM EDT [facility] Chloride, Whole Blood 102 97 - 107 mmol/L LAB HEMATOLOGY METHOD 10/13/2024 3:38 PM EDT [facility] Glucose, Whole Blood 88 74 - 99 mg/dL LAB HEMATOLOGY METHOD 10/13/2024 3:38 PM EDT [facility] Lactate, Venous, Whole Blood 1.4 0.5 - 2.2 mmol/L LAB HEMATOLOGY METHOD 10/13/2024 3:38 PM EDT [facility] Ionized Calcium, Whole Blood 4.3(L) 4.6 - 5.1 mg/dL LAB HEMATOLOGY METHOD 10/13/2024 3:38 PM EDT [facility] Blood Venous blood specimen / Unknown Venipuncture / Unknown 10/13/2024 3:05 PM EDT 10/13/2024 3:24 PM EDT us Krissy Jimenez MD LAB BLOOD ORDERABLES Estefany l Result [facility] [address] [place] [address] * ID CRITICAL CARE, E/M 30-74 MINUTES (10/13/2024 12:37 PM EDT) Narrative Krissy Jimenez MD - 10/13/2024 12:37 PM EDT Krissy Jimenez MD 10/14/2024 11:51 AM Critical Care Performed by: Clara Damon APRN, JAZMINE Authorized by: Clara Damon APRN, JAZMINE Critical care provider statement: Critical care time (minutes): 30 Critical care time was exclusive of: Separately billable procedures and treating other patients and teaching time Critical care was time spent personally by me on the following activities: Development of treatment plan with patient or surrogate, discussions with consultants, evaluation of patient's response to treatment, examination of patient, review of old charts, ordering and review of radiographic studies, ordering and review of laboratory studies, ordering and performing treatments and interventions and obtaining history from patient or surrogate Comments: This patient is critically ill. Thus far, I have spent the above referenced minutes, devoted solely to this patient managing life/organ supporting interventions that required physical assessment. This includes time spent adjusting antibiotics and all medications, discussion of patient with consultants and other care providers as well as updating patient and/or family (if patient by virtue of his/her condition is unable to participate in decision making). This does not include time spent performing separately billed procedures. Time is not concurrent with that of other providers. us Clara Damon APRN, DNP IN CLINIC/BEDSIDE O RDERABLES Final Result * (ABNORMAL) Hepatitis C Virus (HCV) Quantitative PCR (10/13/2024 11:34 AM EDT) Hepatitis C Virus (HCV) Quantitative Interpretation Detected( A) Not Detected. 10/15/2024 3:18 PM EDT [facility] Hepatitis C Virus (HCV) Quantitative Viral Load Log Result 2.40 <1.08 log10 IU/mL 10/15/2024 3:18 PM EDT [facility] Hepatitis C Virus (HCV) Quantitative IU/mL Result 254 <12 IU/mL 10/15/2024 3:18 PM EDT [facility] Blood Venous blood specimen / Unknown Venipuncture / Unknown 10/13/2024 11:34 AM EDT 10/13/2024 11:38 AM EDT Narrative [facility] - 10/15/2024 3:18 PM EDT The [employer] M2000 HCV test [...] assay is FDA approved for clinical use. Lashay Gong APRN, JAZMINE LAB BLOOD ORDERABLES Final Result Performing Organization Address [facility]/ZIP Co de Phone Number [facility] [address] [place] [address] * (ABNORMAL) Hepatitis C Virus (HCV) Genotype (10/13/2024 11:34 AM EDT) Pathologist [facility] Hepatitis C Virus (HCV) Genotype Result Hepatitis C Virus Genotype: 3(A) Not Detected 10/19/2024 4:10 AM EDT [facility] Blood Venous blood specimen / Unknown Venipuncture / Unknown 10/13/2024 11:34 AM EDT 10/13/2024 11:38 AM EDT Narrative [facility] - 10/19/2024 4:10 AM EDT This test is performed by the Smule000 instrument for Real Time PCR HCV Genotype II. This test is FDA approved for use with serum specimens. This test is used for clinical purposes. It should not be regarded as investigational or for research. Reference interval includes HCV Genotypes: 1, 1A, 1B, 2, 3, 4, and 5. The [facility] is certified under the Clinical Laboratory Improvement Amendments of 1988 (CLIA-88) as qualified to perform high complexity clinical laboratory testing. Lashay Gong APRN, JAZMINE LAB BLOOD ORDERABLES Final Result Performing Organization Address City/[facility]/ZIP Co de Phone Number [facility] [address] [place] [address] * (ABNORMAL) Serum Drug Screen (10/13/2024 11:34 AM EDT) Pathologist [facility] 9 Carboxy THC 56(H) <5 ng/mL 10/17/2024 4:25 PM EDT [facility] Alprazolam <5 <5 ng/mL 10/17/2024 4:25 PM EDT [facility] Amphetamine <10 <10 ng/mL 10/17/2024 4:25 PM EDT [facility] Benzolyecgonine <20 <20 ng/mL 4:25 PM EDT [facility] Buprenorphine <1.0 <1.0 ng/mL 10/17/2024 4:25 PM EDT [facility] Butalbital <50 <50 ng/mL 10/17/2024 4:25 PM EDT [facility] Clonazepam <5 <5 ng/mL 10/17/2024 4:25 PM EDT [facility] Codeine <5 <5 ng/mL 10/17/2024 4:25 PM EDT [facility] Diazepam <5 <5 ng/mL 10/17/2024 4:25 PM EDT [facility] Fentanyl <1 <1 ng/mL 10/17/2024 4:25 PM EDT [facility] Hydrocodone <2 <2 ng/mL 10/17/2024 4:25 PM EDT [facility] Hydromorphone <5 <5 ng/mL 10/17/2024 4:25 PM EDT [facility] Lorazepam <5 <5 ng/mL 10/17/2024 4:25 PM EDT [facility] MDA <10 <10 ng/mL 10/17/2024 4:25 PM EDT [facility] MDMA <10 <10 ng/mL 10/17/2024 4:25 PM EDT [facility] Meperidine <5 <5 ng/mL 10/17/2024 4:25 PM EDT [facility] Methadone <10 <10 ng/mL 10/17/2024 4:25 PM EDT [facility] Methadone Metabolite <10 <10 ng/mL 10/06 4:25 PM EDT [facility] Methamphetamine <10 <10 ng/mL 4:25 PM EDT [facility] Midazolam <5 <5 ng/mL 10/17/2024 4:25 PM EDT [facility] Morphine <2 <2 ng/mL 10/17/2024 4:25 PM EDT [facility] Norbuprenorphine <5 <5 ng/mL 10/18/19 4:25 PM EDT [facility] Nordiazepam <10 <10 ng/mL 10/17/2024 4:25 PM EDT [facility] Oxazepam <5 <5 ng/mL 10/17/2024 4:25 PM EDT [facility] Oxycodone 9(H) <2 ng/mL 10/17/2024 4:25 PM EDT [facility] Oxymorphone <2 <2 ng/mL 10/17/2024 4:25 PM EDT [facility] Phenobarbital <50 <50 ng/mL 10/17/2024 4:25 PM EDT [facility] Temazepam <5 <5 ng/mL 10/17/2024 4:25 PM EDT [facility] Tramadol <20 <20 ng/mL 10/17/2024 4:25 PM EDT [facility] Blood Venous blood specimen / Unknown Venipuncture / Unknown 10/13/2024 11:34 AM EDT 10/13/2024 11:37 AM EDT Narrative [facility] - 10/17/2024 4:25 PM EDT Test performed by LC-MS/MS at the [facility]. This test was developed and its performance characteristics determined by [facility]. It has not been cleared or approved by the FDA. The laboratory is regulated under CLIA as qualified to perform high-complexity testing. This test is used for clinical purposes. us Clara Damon APRN, DNP LAB BLOOD ORDERABLE S Final Result [facility] [address] [place] [address] * (ABNORMAL) Renal function panel (10/13/2024 11:34 AM EDT) Only the most recent of12 resultswithin the time period is included. Glucose, Plasma 90 74 - 99 mg/dL 10/13/2024 12:27 PM EDT [facility] BUN, Plasma 57(H) 7 - 21 mg/dL 10/13/2024 12:27 PM EDT [facility] Creatinine, Plasma 5.16(H) 0.70 - 1.20 mg/dL 10/13/2024 12:27 PM EDT [facility] BUN/Creatinine Ratio 11 10/13/2024 12:27 PM EDT [facility] Sodium, Plasma 137 136 - 145 mmol/L 10/13/2024 12:27 PM EDT [facility] Potassium, Plasma 5.4(H) 3.6 - 4.9 mmol/L 10/13/2024 12:27 PM EDT [facility] Chloride, Plasma 99 97 - 107 mmol/L 10/13/2024 12:27 PM EDT [facility] CO2, Plasma 22 22 - 29 mmol/L 10/13/2024 12:27 PM EDT [facility] Anion Gap 16 6 - 16 mmol/L 10/13/2024 12:27 PM EDT [facility] Total Calcium, Plasma 8.8(L) 8.9 - 10.2 mg/dL 10/13/2024 12:27 PM EDT [facility] Phosphorus, Plasma 7.1(H) 2.5 - 4.5 mg/dL 10/13/2024 12:27 PM EDT [facility] Albumin, Plasma 3.0(L) 3.5 - 5.2 g/dL 10/13/2024 12:27 PM EDT [facility] eGFRcr 13.5 mL/min/1.7 3m*2 10/13/2024 12:27 PM EDT [facility] Comment:Reported eGFRcr in m L/min/1.73m2 is based the CKD-EPI 2020 equation that does not use a race coefficient. Blood Venous blood specimen / Unknown Venipuncture / Unknown 10/13/2024 11:34 AM EDT 10/13/2024 11:39 AM EDT us Nicki George INSTRUCTIONAL TECHNOLOGY INSTRUCTOR, DNP LAB BLOOD ORDERABLES Estefany galloway Result [facility] [address] [place] [address] * ECHO, ADULT TRANSTHORACIC COMPLETE (10/13/2024 10:37 AM EDT) Height 183.0 FLORESITA ISCV Weight 80.0 FLORESITA ISCV BSA 2.02 m2 FLORESITA ISCV LVIDd 53 mm FLORESITA ISCV LVIDs 46 mm FLORESITA ISCV IVSd 10 mm FLORESITA ISCV LVPWd 14 mm FLORESITA ISCV LV MASS(C)D 256 g FLORESITA ISCV UK CV ECHO LV MASS INDEX 127 g/m2 FLORESITA ISCV LV RWT 0.45 mm FLORESITA ISCV LV EDV(MOD-4ch) 193 mL FLORESITA ISCV LV ESV(MOD4ch) 137 mL FLORESITA ISCV EF(MOD-sp4) 29 % FLORESITA ISCV LV EDV(MOD-2ch) 276 mL FLORESITA ISCV LV ESV(MOD2ch) 192 mL FLORESITA ISCV EF(MOD-sp2) 30 % FLORESITA ISCV EDV(MOD-bp) 235 mL FLORESITA ISCV ESV(MOD-bp) 165 mL FLORESITA ISCV EF(MOD-bp) 30 % FLORESITA ISCV MV E Vmax 114.0 cm/s FLORESITA ISCV MV A Vmax 74.4 cm/s FLORESITA ISCV MV E/A 1.5 cm/s FLORESITA ISCV TR Vmax 146.0 cm/s FLORESITA ISCV LA dimension 48 mm FLORESITA ISCV TAPSE 14 mm FLORESITA ISCV TR Max PG 9 mmHG FLORESITA ISCV PA acc time 110 msec FLORESITA ISCV mean PAP 30 mmHg FLORESITA ISCV MV dec time 130 ms FLORESITA ISCV MV P1/2t 38 ms FLORESITA ISCV MVA(P1/2t) 5.8 cm2 FLORESITA ISCV Ao Root Diam 35 mm FLORESITA ISCV PA ID(ACCEL) 30.6 mmHg FLORESITA ISCV LVLs ap2 9.1 mm FLORESITA ISCV Anatomical Region Laterality Modality Echocardiography Narrative 10/13/2024 12:55 PM EDT Left Ventricle: Based on the linear dimension and/or 2D volumes, the left ventricle is moderately dilated in size. There is severe eccentric hypertrophy. The left ventricular systolic function is moderately reduced. The LVEF as measured by biplane volume is 30%. The diastolic function is abnormal. There is global hypokinesis of the left ventricle. The septal wall is akinetic. Right Ventricle: The right ventricle is normal in size. The right ventricular systolic function is normal. Mitral Valve: There is moderate mitral regurgitation. Pericardium: No pericardial effusion. Compared to the most recently available prior study, and allowing for differences in image quality and technique, there is no significant interval change noted. Left Ventricle Based on the linear dimension and/or 2D volumes, the left ventricle is moderately dilated in size. There is severe eccentric hypertrophy. The left ventricular systolic function is moderately reduced. The LVEF as measured by biplane volume is 30%. The diastolic function is abnormal. There is global hypokinesis of the left ventricle. The septal wall is akinetic. Right Ventricle The right ventricle is normal in size. The right ventricular systolic function is normal. Right ventricular systolic pressure is normal (<35mmHg). Left Atrium The left atrium is dilated by visual assessment. The interatrial septum is intact with no evidence for an atrial septal defect. Right Atrium The right atrial size is normal. IVC/SVC The IVC was not well visualized, and an assumed pressure of 8mmHg was used for calculations. Mitral Valve The leaflets appear thickened. There is no mitral valve vegetation. There is moderate mitral regurgitation. There is no mitral stenosis. Tricuspid Valve The leaflets appear thickened. There is no tricuspid valve vegetation. There is trace tricuspid regurgitation. There is no tricuspid stenosis. Aortic Valve The aortic valve appears to be trileaflet. There is no aortic valve vegetation. There is no valvular regurgitation. There is no hemodynamically significant valvular aortic stenosis. Pulmonic Valve The pulmonic valve is normal in appearance. There is no pulmonic valve vegetation. There is trace pulmonic regurgitation. There is no pulmonic stenosis. Pericardium No pericardial effusion. Great Vessels The aortic root is normal in size. The sinus of Valsalva (aortic root) diameter is 35 mm by leading edge to leading edge method. In the maximally visualized portion, the ascending aorta appears normal in size. In the maximally visualized portion, the aortic arch appears normal in size. Extracardiac There are bilateral pleural effusions. Study Details A complete transthoracic echocardiogram using two-dimensional (2D), m-mode, color and spectral flow Doppler imaging was performed. During the study the apical, parasternal, subcostal and suprasternal view was captured. Overall the study quality was adequate. Height: 183.0 cm. Weight: 80.0 kg. BSA: 2.02 m2. Study Recommendation Compared to the most recently available prior study, and allowing for differences in image quality and technique, there is no significant interval change noted. us Najma Walker INSTRUCTIONAL TECHNOLOGY INSTRUCTOR CV ECHO PROCEDURES Final Re sult * CT Abdomen Pelvis wo IV Contrast (10/13/2024 4:29 AM EDT) Only the most recent of2 resultswithin the time period is included. Anatomical Region Laterality Modality Abdomen, Pelvis Computed Tomogra phy Impressions 10/13/2024 4:40 AM EDT Large amount of ascites throughout the abdomen and pelvis. Other changes of marked volume overload including anasarca and pleural effusions. There are some mildly dilated loops of small bowel within the left upper quadrant, nonspecific, without transition point to suggest bowel obstruction. CRITICAL RESULT: No. COMMUNICATION: Per this written report. Drafted by Brenda Jara on 10/13/2024 4:32 AM Final report signed by Brenda Jara on 10/13/2024 4:40 AM Narrative 10/13/2024 4:40 AM EDT CLINICAL INDICATION: Abdominal pain, acute, nonlocalized COMPARISON: CT abdomen pelvis August 07, 2024 TECHNIQUE: Imaging of the abdomen and pelvis was performed from lung bases through pubic symphysis, using spiral technique, without administration of IV contrast. Reformatted images in the coronal and sagittal planes were generated from the axial data set to facilitate diagnostic accuracy. Total DLP (Dose-Length Product): 606.63 mGy.cm. Please note: The reported value represents the total of one or more individual components during the CT acquisition on this date and at this time, and as such, the same value may appear in more than one CT report depending on the interpreting/reporting physicians. FINDINGS: Lack of IV contrast limits evaluation of abdominal and pelvic organs. Lung Bases: Pulmonary edema, worst within the lung bases. Small right and small to moderate left pleural effusions. There is adjacent compressive atelectasis. Cardiomegaly, increased heart size since comparison. No significant pericardial effusion. Stomach: No acute findings of the stomach. Liver/Gallbladder/Biliary system: The liver demonstrates no focal lesion. Layering hyperdense material within the gallbladder, likely vicarious excretion of contrast. No intra- or extra-hepatic biliary ductal dilatation. Spleen: No acute findings of the spleen. Pancreas: No acute findings of the pancreas. Adrenals: No acute findings of the adrenal glands. Kidneys: Atrophic appearance of the bilateral kidneys with a right renal cyst present, similar appearance. No renal or ureteral calculi. No definite hydroureteronephrosis. Pelvis: There is layering hyperdense material within the urinary bladder, likely excreted contrast material. No acute findings of the urinary bladder. Bowel/Mesentery: There is oral contrast material throughout the stomach and bowel. Mildly dilated loops of small bowel within the left upper quadrant. No abrupt caliber change to suggest obstruction. The large bowel loops are not dilated. The appendix is visualized and normal. Vessels/Lymph Nodes: Normal caliber of the abdominal aorta. No lymphadenopathy within the abdomen or pelvis. Fluid Survey: Large amount of ascites throughout the abdomen and pelvis. Body Wall: Anasarca. Bones: No acute osseous findings. Procedure Note Brenda Jara MD - 10/13/2024 CLINICAL INDICATION: Abdominal pain, acute, nonlocalized COMPARISON: CT abdomen pelvis August 07, 2024 TECHNIQUE: Imaging of the abdomen and pelvis was performed from lung bases throughpubic symphysis, using spiral technique, without administration of IVcontrast. Reformatted images in the coronal and sagittal planes weregenerated from the axial data set to facilitate diagnostic accuracy. Total DLP (Dose-Length Product): 606.63 mGy.cm. Please note: The reportedvalue represents the total of one or more individual components during theCT acquisition on this date and at this time, and as such, the same valuemay appear in more than one CT report depending on theinterpreting/reporting physicians. FINDINGS: Lack of IV contrast limits evaluation of abdominal and pelvic organs. Lung Bases: Pulmonary edema, worst within the lung bases. Small right andsmall to moderate left pleural effusions. There is adjacent compressiveatelectasis. Cardiomegaly, increased heart size since comparison. Nosignificant pericardial effusion. Stomach: No acute findings of the stomach. Liver/Gallbladder/Biliary system: The liver demonstrates no focal lesion.Layering hyperdense material within the gallbladder, likely vicariousexcretion of contrast. No intra- or extra-hepatic biliary ductaldilatation. Spleen: No acute findings of the spleen. Pancreas: No acute findings of the pancreas. Adrenals: No acute findings of the adrenal glands. Kidneys: Atrophic appearance of the bilateral kidneys with a right renalcyst present, similar appearance. No renal or ureteral calculi. Nodefinite hydroureteronephrosis. Pelvis: There is layering hyperdense material within the urinary bladder,likely excreted contrast material. No acute findings of the urinarybladder. Bowel/Mesentery: There is oral contrast material throughout the stomachand bowel. Mildly dilated loops of small bowel within the left upperquadrant. No abrupt caliber change to suggest obstruction. The large bowelloops are not dilated. The appendix is visualized and normal. Vessels/Lymph Nodes: Normal caliber of the abdominal aorta. Nolymphadenopathy within the abdomen or pelvis. Fluid Survey: Large amount of ascites throughout the abdomen and pelvis. Body Wall: Anasarca. Bones: No acute osseous findings. IMPRESSION: Large amount of ascites throughout the abdomen and pelvis. Other changesof marked volume overload including anasarca and pleural effusions. There are some mildly dilated loops of small bowel within the left upperquadrant, nonspecific, without transition point to suggest bowelobstruction. CRITICAL RESULT: No. COMMUNICATION: Per this written report. Drafted by Brenda Jara on 10/13/2024 4:32 AM Final report signed by Brenda Jara on 10/13/2024 4:40 AM Najma Walker INSTRUCTIONAL TECHNOLOGY INSTRUCTOR IMG CT PROCEDURES Final Res ult * XR Chest 1 View - bedside (10/13/2024 1:13 AM EDT) Only the most recent of6 resultswithin the time period is included. Anatomical Region Laterality Modality Chest Digital Radiogra phy Impressions 10/13/2024 8:49 AM EDT Slight progressive worsening ill-defined airspace disease bilaterally. CRITICAL RESULT: No. COMMUNICATION: Per this written report. Drafted by Kai Fitzpatrick MD on 10/13/2024 8:49 AM Final report signed by Kai Fitzpatrick MD on 10/13/2024 8:49 AM Narrative 10/13/2024 8:49 AM EDT CLINICAL INDICATION: INTUBATION TECHNIQUE: XR CHEST 1 VIEW COMPARISON: 10/12/2024. FINDINGS: Hardware stable. Mild vascular congestion with ill-defined airspace disease within the lung bases. No pleural effusion or pneumothorax. Procedure Note Kai Fitzpatrick MD - 10/13/2024 CLINICAL INDICATION: INTUBATION TECHNIQUE: XR CHEST 1 VIEW COMPARISON: 10/12/2024. FINDINGS: Hardware stable. Mild vascular congestion with ill-defined airspacedisease within the lung bases. No pleural effusion or pneumothorax. IMPRESSION: Slight progressive worsening ill-defined airspace disease bilaterally. CRITICAL RESULT: No. COMMUNICATION: Per this written report. Drafted by Kai Fitzpatrick MD on 10/13/2024 8:49 AM Final report signed by Kai Fitzpatrick MD on 10/13/2024 8:49 AM Najma Walker INSTRUCTIONAL TECHNOLOGY INSTRUCTOR IMG XR PROCEDURES Final Res ult * (ABNORMAL) Troponin T, High Sensitivity, 2 Hour, Plasma (10/12/2024 11:40 PM EDT) Troponin T, High Sensitivity, 2 Hour 148(H) <19 ng/L 10/13/2024 12:06 AM EDT [facility] Troponin Delta 7 <10 ng/L 10/13/2024 12:06 AM EDT [facility] Troponin Delta Interpretation Not Significant 10/13/2024 12:06 AM EDT [facility] Comment:Not Significant. No acute change in troponin observed between the baseline and 2 hour samples. Blood Venous blood specimen / Unknown Venipuncture / Unknown 10/12/2024 11:40 PM EDT 10/12/2024 11:44 PM EDT Cece Miller MD LAB BLOOD ORDERABLES Final Resul t [facility] [address] [place] [id number] * (ABNORMAL) Ionized calcium, serum (10/12/2024 11:40 PM EDT) Ionized Calcium, Serum 4.2(L) 4.6 - 5.3 mg/dL LAB HEMATOLOGY METHOD 10/12/2024 11:53 PM EDT [facility] Blood Venous blood specimen / Unknown Venipuncture / Unknown 10/12/2024 11:40 PM EDT 10/12/2024 11:44 PM EDT Najma Walker APRN LAB BLOOD ORDERABLES Final Result Performing Organization Address [facility] Co de Phone Number [facility] [address] [place] [address] * (ABNORMAL) BETA HYDROXYBUTYRIC ACID (10/12/2024 11:40 PM EDT) [facility] Beta-Hydroxybu tyric Acid, Plasma 0.378(H) <=0.27 mmol/L 10/13/2024 12:25 PM EDT [facility] Blood Venous blood specimen / Unknown Venipuncture / Unknown 10/12/2024 11:40 PM EDT 10/12/2024 11:44 PM EDT Clara Damon APRN, JAZMINE LAB BLOOD ORDERABLE S Final Result Performing Organization Address [facility] de Phone Number [facility] [address] [place] [address] * Germán auris Surveillance by PCR (10/12/2024 10:37 PM EDT) [facility] Germán auris PCR Result Not Detected Not Detected 10/13/2024 2:48 PM EDT [facility] Swab (Axilla and Groin) Non-blood Collection / Unknown 10/12/2024 10:37 PM EDT 10/13/2024 3:39 AM EDT Narrative [facility] - 10/13/2024 2:48 PM EDT This PCR assay was developed and its performance characteristics determined by [facility] as appropriate for clinical purposes. This assay has not been cleared or approved by the FDA, but is performed in a CLIA regulated laboratory that is qualified to perform high-complexity testing. Najma Walker APRN LAB MICROBIOLOGY - GENERAL ORDERABLES Final Result Performing Organization Address [facility]/ZIP Co de Phone Number [facility] [address] [place] [address] * (ABNORMAL) Multi Drug Resistance Test (10/12/2024 10:37 PM EDT) Culture Methicillin-Resist ant Staphylococcus aureus(AA) 10/14/2024 10:21 AM EDT [facility] Swab (Nares and Annetta Rectal) Non-blood Collection / Unknown 10/12/2024 10:37 PM EDT 10/13/2024 3:39 AM EDT Narrative [facility] - 10/14/2024 10:21 AM EDT This test was developed and [...] to perform high complexity clinical laboratory testing. Najma Walker APRN LAB MICROBIOLOGY - GENERAL ORDERABLES Final Result Performing Organization Address City/[facility]/ZIP Co de Phone Number [facility] [address] [place] [address] * Blood Culture (Aerobic/Anaerobet Set) (10/12/2024 10:36 PM EDT) Only the most recent of2 resultswithin the time period is included. [facility] Culture No growth at day 5 10/18/2024 9:01 AM EDT [facility] Blood Venous blood specimen / Unknown Venipuncture / Unknown 10/12/2024 10:36 PM EDT 10/13/2024 3:38 AM EDT Narrative [facility] - 10/18/2024 9:01 AM EDT Low blood volume submitted, results may be compromised us Cece Miller MD LAB MICROBIOLOGY - GENERAL ORDER NICHOL Final Result [facility] [address] [place] [id number] * ECG - RT (10/12/2024 9:42 PM EDT) Only the most recent of12 resultswithin the time period is included. EKG DIAGNOSIS CLASS Borderline Abnormal MUSE ECG Ventricular Rate 97 BPM MUSE ECG Atrial Rate 97 BPM MUSE ECG ID Interval 142 ms MUSE ECG QRSD Interval 86 ms MUSE ECG QT Interval 364 ms MUSE ECG QTC Interval 463 ms MUSE ECG P [place] 35 degrees MUSE ECG R [place] -19 degrees MUSE ECG T Wave [place] 51 degrees MUSE ECG Diagnosis Normal sinus rhythm MUSE ECG Diagnosis Possible Left atrial enlargement MUSE ECG Diagnosis Borderline ECG MUSE ECG Diagnosis MUSE ECG Diagnosis Confirmed by Colin Andujar ([id number]) on 10/12/2024 10:36:12 PM MUSE ECG 10/12/2024 9:42 PM EDT 10/12/2024 10:36 PM EDT Najma Walker APRN ECG ORDERABLES Final Resul t Performing Organization Address City/[facility]/ZIP Co de Phone Number MUSE ECG * Ethylene Glycol Plasma (10/12/2024 9:00 PM EDT) Pathologist [facility] Ethylene Glycol, Plasma <10 <10 mg/dL 10/12/2024 10:36 PM EDT [facility] Blood Venous blood specimen / Unknown Venipuncture / Unknown 10/12/2024 9:00 PM EDT 10/12/2024 9:07 PM EDT Narrative [facility] - 10/12/2024 10:36 PM EDT This test was developed and its performance characteristics determined by [facility]. It has not been cleared or approved by the FDA. The laboratory is regulated under CLIA as qualified to perform high-complexity testing. This test is used for clinical purposes. Enzymatic Assay: Performed on Bernie Minor. Najma Walker APRN LAB BLOOD ORDERABLES Final Result [facility] [address] [place] [address] * Alcohol Profile Plasma ([place] Only) (10/12/2024 9:00 PM EDT) Methanol Plasma <10 <10 mg/dL 3:51 AM EDT [facility] Acetone Plasma <10 <10 mg/dL 10/13/2024 3:51 AM EDT [facility] Isopropanol Plasma <10 <10 mg/dL 10/13/2024 3:51 AM EDT [facility] Ethanol Plasma <10 <10 mg/dL 10/13/2024 3:51 AM EDT [facility] Blood Venous blood specimen / Unknown Venipuncture / Unknown 10/12/2024 9:00 PM EDT 10/12/2024 9:07 PM EDT Narrative [facility] - 10/13/2024 3:51 AM EDT Test performed by Gas Chromatography at the [facility]. This test was developed and its performance characteristics determined by [facility]. It has not been cleared or approved by the FDA.The laboratory is regulated under CLIA as qualified to perform high-complexity testing. This test is used for clinical purposes only. Test performed by Gas Chromatography at the [facility]. This test was developed and its performance characteristics determined by [facility]. It has not been cleared or approved by the FDA.The laboratory is regulated under CLIA as qualified to perform high-complexity testing. This test is used for clinical purposes only. Najma Walker [facility] LAB BLOOD ORDERABLES Final Result [facility] [address] [place] [address] * Cortisol, serum (10/12/2024 9:00 PM EDT) Cortisol 13.50 Before 10am: 3.7 - 19.4. After 5pm: 2.9 - 17.3 ug/dL 10/13/2024 12:38 AM EDT [facility] Comment:Testing performed on [employer], standardized against JAIL Reference Standard concentration values assigned by LC-MS/MS and verified by BCR 192 and BCR 193 certified reference materials. Blood Venous blood specimen / Unknown Venipuncture / Unknown 10/12/2024 9:00 PM EDT 10/12/2024 9:14 PM EDT Najma Walker APRN LAB REF LAB BLOOD AND FLUID ORD Final Result [facility] [address] [place] [address] * ID CRITICAL CARE, E/M 30-74 MINUTES (10/12/2024 8:13 PM EDT) Narrative Najma Walker APRN - 10/12/2024 8:13 PM EDT Najma Walker APRN 10/12/2024 11:50 PM Critical Care Performed by: Najma Walker APRN Authorized by: Najma Walker APRN Critical care provider statement: Critical care time (minutes): 45 Critical care time was exclusive of: Separately billable procedures and treating other patients Critical care was time spent personally by me on the following activities: Development of treatment plan with patient or surrogate, discussions with consultants, discussions with primary provider, evaluation of patient's response to treatment, examination of patient, obtaining history from patient or surrogate, review of old charts, ordering and review of radiographic studies, ordering and review of laboratory studies and ordering and performing treatments and interventions I assumed subsequent critical care for this patient from a provider in my division, on the same day: no Comments: This patient is critically ill with chronic renal failure and hyperkalemia requiring urgent iHD. Thus far, I have spent the above referenced minutes, devoted solely to this patient managing life/organ supporting interventions that required physical assessment. This includes time spent reviewing and adjusting all medications, discussion of patient with consultants and other care providers as well as updating patient and/or family (if patient by virtue of his/her condition is unable to participate in decision making). This does not include time spent performing separately billed procedures. Time is not concurrent with that of other providers. Najma Walker APRN IN CLINIC/BEDSIDE ORDERABLE S Final Result * Anti Xa Level Low Molecular Weight (10/12/2024 7:25 PM EDT) Anti Xa Level Low Molecular Weight Heparin <0.11 <2.00 IU/mL 10/12/2024 7:44 PM EDT [facility] Blood Venous blood specimen / Unknown Venipuncture / Unknown 10/12/2024 7:25 PM EDT 10/12/2024 7:29 PM EDT Narrative [facility] - 10/12/2024 7:44 PM EDT Therapeutic Range: LMWH enoxaparin 1mg/kg/dose, 12hrs - peak (3-5 hours after dose): 0.5 - 1.0 IU/mL LMWH enoxaparin 1.5mg/kg/dose, 24hrs - peak (3-5 hours after dose): 1.0 - 2.0 IU/mL LMWH enoxaparin prophylaxis: Not established us Cece Miller MD LAB BLOOD ORDERABLES Final Resul t Performing Organization Address City/[facility]/ZIP Co de Phone Number [facility] [address] [place] [address] * (ABNORMAL) Troponin now and 120 min (10/12/2024 7:24 PM EDT) Troponin T, High Sensitivity, 0 Hour 155(H) <19 ng/L 10/12/2024 7:50 PM EDT [facility] Blood Venous blood specimen / Unknown Venipuncture / Unknown 10/12/2024 7:24 PM EDT 10/12/2024 7:28 PM EDT us Cece Miller MD LAB BLOOD ORDERABLES Final Resul t Performing Organization Address [facility] Co de Phone Number [facility] [address] [place] [address] * (ABNORMAL) Cystatin C (10/12/2024 7:24 PM EDT) Cystatin C 5.14(H) 0.61 - 0.95 mg/L 10/12/2024 11:50 PM EDT [facility] Blood Venous blood specimen / Unknown Venipuncture / Unknown 10/12/2024 7:24 PM EDT 10/12/2024 7:28 PM EDT Najma aWlker APRN LAB BLOOD ORDERABLES Final Result Performing Organization Address City/[facility]/ZIP Co de Phone Number [facility] [facility] [address] [place] [address] * Creatine Kinase, Total, Plasma (10/12/2024 7:24 PM EDT) Creatine Kinase, Plasma 210 49 - 320 U/L 10/12/2024 9:21 PM EDT [facility] Blood Venous blood specimen / Unknown Venipuncture / Unknown 10/12/2024 7:24 PM EDT 10/12/2024 7:28 PM EDT [facility] BLOOD ORDERABLES Final Result Performing Organization Address [facility] de Phone Number [facility] [address] [place] [address] * (ABNORMAL) Procalcitonin, Plasma (10/12/2024 7:24 PM EDT) Pathologist [facility] Procalcitonin, Plasma 1.64(H) <0.09 ng/mL 10/12/2024 9:21 PM EDT [facility] LAB Blood Venous blood specimen / Unknown Venipuncture / Unknown 10/12/2024 7:24 PM EDT 10/12/2024 7:28 PM EDT Narrative [facility] - 10/12/2024 9:21 PM EDT Procalcitonin concentrations in healthy individuals are <0.09 ng/mL. Published data support the following interpretive risk assessment: An elevated procalcitonin result does not always indicate sepsis. Various non-infectious conditions are known to increase procalcitonin. Results should be considered in the context of clinical symptoms and other laboratory tests. Procalcitonin >2.0 ng/mL: Concentrations >2.0 ng/mL on the first day of ICU admission are associated with a higher risk of progression to severe sepsis and/or septic shock. The change in PCT over time may help predict 28 day mortality risk. Please consult [email or web address] for more information. Test performed at [facility], Core Laboratory. [employer] Walker INSTRUCTIONAL TECHNOLOGY INSTRUCTOR LAB BLOOD ORDERABLES Final Result Performing Organization Address [facility]/ZIP Co de Phone Number [facility] [address] [place] [address] * (ABNORMAL) Acetaminophen, Quantitative, Plasma (10/12/2024 7:24 PM EDT) Acetaminophen <5.0(L) 10.0 - 30.0 g/mL 10/12/2024 9:21 PM EDT [facility] Blood Venous blood specimen / Unknown Venipuncture / Unknown 10/12/2024 7:24 PM EDT 10/12/2024 7:28 PM EDT Narrative [facility] - 10/12/2024 9:21 PM EDT Therapeutic: 10 to 30 ug/mL Supratherapeutic: >35 ug/mL Najma Walker [facility] BLOOD ORDERABLES Final Result Performing Organization Address City/[facility] Co de Phone Number HEALTHCARE LAB [address] [place] [address] * (ABNORMAL) N-Terminal ProBNP, Plasma (10/12/2024 7:24 PM EDT) Only the most recent of2 resultswithin the time period is included. N-Terminal, PROBNP, Plasma >70,000(H) 0 - 449 pg/mL 10/12/2024 10:03 PM EDT [facility] Blood Venous blood specimen / Unknown Venipuncture / Unknown 10/12/2024 7:24 PM EDT 10/12/2024 7:28 PM EDT [facility] BLOOD ORDERABLES Final Result Performing Organization Address City/State/[facility] Co de Phone Number [facility] [address] [place] [address] * (ABNORMAL) PT-INR (10/12/2024 7:24 PM EDT) Only the most recent of11 resultswithin the time period is included. Prothrombin Time 24.7(H) 12.0 - 14.3 sec 10/12/2024 7:44 PM EDT [facility] INR 2.2(H) 0.9 - 1.1 10/12/2024 7:44 PM EDT [facility] Blood Venous blood specimen / Unknown Venipuncture / Unknown 10/12/2024 7:24 PM EDT 10/12/2024 7:29 PM EDT Narrative HEALTHCARE LAB - 10/12/2024 7:44 PM EDT OPTIMAL INR RANGES FOR PATIENT ON ORAL ANTICOAGULANT THERAPY Prevention of venous thromboembolism INR 2.0 to 3.0 In patients with heart disease: Atrial fibrillation INR 2.0 to 3.0 Valvular heart disease INR 2.0 to 3.0 Tissue heart valves INR 2.0 to 3.0 Mechanical prosthetic valves INR 2.5 to 3.5 Prevention of recurrent SC INR 2.5 to 3.5 Cece Miller MD LAB BLOOD ORDERABLES Final Resul t [facility] [address] [place] [address] * Type and screen (10/12/2024 7:24 PM EDT) Only the most recent of3 resultswithin the time period is included. ABO/Rh B Positive 10/12/2024 7:13 PM EDT BLOOD BANK Antibody Screen Negative 10/12/2024 7:13 PM EDT BLOOD BANK Specimen Expiration 10/15/2024 23:59 10/12/2024 7:13 PM EDT BLOOD BANK Blood Venous blood specimen / Unknown Venipuncture / Unknown 10/12/2024 7:24 PM EDT 10/12/2024 7:27 PM EDT Cece Miller MD LAB BLOOD BANK TEST ORDERABLES F inal Result BLOOD BANK [address] [place] [address], * (ABNORMAL) C-reactive protein (10/12/2024 7:24 PM EDT) Only the most recent of11 resultswithin the time period is included. CRP, Plasma 102.8(H) <=8.0 mg/L 10/12/2024 9:21 PM EDT [facility]ALTHCARE LAB Blood Venous blood specimen / Unknown Venipuncture / Unknown 10/12/2024 7:24 PM EDT 10/12/2024 7:28 PM EDT Narrative HEALTHCARE LAB - 10/12/2024 9:21 PM EDT This CRP test is appropriate for assessment of infection, systemic inflammation and/or tissue injury. To assess cardiovascular disease risk order high sensitivity CRP (CRPH). [facility] BLOOD ORDERABLES Final Result Performing Organization Address City/[facility] Co de Phone Number [facility] [address] [place] [address] * Thyroid Stimulating Hormone, Plasma (10/12/2024 7:24 PM EDT) Thyroid Stimulating Hormone, Plasma 3.58 0.40 - 4.20 uIU/mL 10/12/2024 9:21 PM EDT [facility] Blood Venous blood specimen / Unknown Venipuncture / Unknown 10/12/2024 7:24 PM EDT 10/12/2024 7:28 PM EDT [facility] BLOOD ORDERABLES Final Result Performing Organization Address [facility] Co de Phone Number [facility] [address] [place] [address] * Free T4, Plasma (10/12/2024 7:24 PM EDT) Free T4, Plasma 1.1 0.8 - 1.7 ng/dL 10/12/2024 9:31 PM EDT [facility] Blood Venous blood specimen / Unknown Venipuncture / Unknown 10/12/2024 7:24 PM EDT 10/12/2024 7:28 PM EDT [facility] BLOOD ORDERABLES Final Result Performing Organization Address City/[facility] Co de Phone Number [facility] [address] [place] [address] * (ABNORMAL) Prealbumin, Plasma (10/12/2024 7:24 PM EDT) Prealbumin, Plasma 15.0(L) 20.0 - 41.0 mg/dL 10/12/2024 11:50 PM EDT [facility] Blood Venous blood specimen / Unknown Venipuncture / Unknown 10/12/2024 7:24 PM EDT 10/12/2024 7:28 PM EDT Najma Walker APRN LAB BLOOD ORDERABLES Final Result Performing Organization Address City/[facility]/ZIP Co de Phone Number [facility] [address] [place] [address] * (ABNORMAL) Lipase (10/12/2024 7:24 PM EDT) Lipase, Plasma 92(H) 19 - 63 U/L 10/12/2024 8:17 PM EDT [facility] Blood Venous blood specimen / Unknown Venipuncture / Unknown 10/12/2024 7:24 PM EDT 10/12/2024 7:28 PM EDT us Cece Miller MD LAB BLOOD ORDERABLES Final Resul t Performing Organization Address City/[facility]/ZIP Co de Phone Number [facility] [address] [place] [address] * Hemoglobin A1c (10/12/2024 7:24 PM EDT) Hemoglobin A1c 4.1 <5.7 % 10/13/2024 1:04 PM EDT [facility] Blood Venous blood specimen / Unknown Venipuncture / Unknown 10/12/2024 7:24 PM EDT 10/12/2024 7:29 PM EDT Narrative [facility] - 10/13/2024 1:04 PM EDT HA1C Interpretive Data: Diagnosis of Diabetes: Diabetic > or = 6.5% Pre-diabetic 5.7 to 6.4% Non-diabetic < or = 5.6% Glycemic Targets for Type I and Type II Diabetics: Non- Adults <7.0% Adults <6.0% Children and Adolescents <7.5% Source: [place] [employer]. Standards of medical care in diabetes,2017. Diabetes Care.2017:40 (suppl 1):S1-S135. Najma Walker APRN LAB BLOOD ORDERABLES Final Result Performing Organization Address City/[facility]/ZIP Co de Phone Number [facility] [address] [place] [address] * Ammonia (10/12/2024 7:24 PM EDT) Ammonia 14 11 - 51 umol/L 10/12/2024 7:51 PM EDT [facility]ALTH[facility] Blood Venous blood specimen / Unknown Venipuncture / Unknown 10/12/2024 7:24 PM EDT 10/12/2024 7:28 PM EDT Cece Miller MD LAB BLOOD ORDERABLES Final Resul t Performing Organization Address [facility] Co de Phone Number [facility] [address] [place] [address] * Salicylate, Quantitative, Plasma (10/12/2024 7:24 PM EDT) Salicylate, Quantitative, Plasma 9.62 <25 mg/dL mg/dL 10/12/2024 9:21 PM EDT HEALTHCARE LAB Blood Venous blood specimen / Unknown Venipuncture / Unknown 10/12/2024 7:24 PM EDT 10/12/2024 7:28 PM EDT Narrative HEALTHCARE LAB - 10/12/2024 9:21 PM EDT Therapeutic Range: <25 mg/dL Supratherapeutic Level: >30 mg/dL Najma Walker APRN LAB BLOOD ORDERABLES Final Result Performing Organization Address City/[facility] Co de Phone Number [facility] [address] [place] [address] * ID CRITICAL CARE, E/M 30-74 MINUTES (10/12/2024 6:45 PM EDT) Narrative Cece Miller MD - 10/12/2024 6:45 PM EDT Cece Miller MD 10/13/2024 8:24 AM Critical Care Performed by: Cece Miller MD Authorized by: Cece Miller MD Critical care provider statement: Critical care time (minutes): 35 Critical care was time spent personally by me on the following activities: Discussions with consultants, development of treatment plan with patient or surrogate, evaluation of patient's response to treatment, examination of patient, obtaining history from patient or surrogate, ordering and performing treatments and interventions, ordering and review of laboratory studies, ordering and review of radiographic studies and review of old charts us Cece Miller MD IN CLINIC/BEDSIDE ORDERABLES Fin al Result * CT THORACIC OUTSIDE IMAGES (10/12/2024 4:50 PM EDT) Anatomical Region Laterality Modality Computed Tomogra phy 10/12/2024 4:50 PM EDT External Provider IMG CT PROCEDURES Edited Resul t - Final * CT MSK OUTSIDE IMAGES (10/12/2024 4:50 PM EDT) Anatomical Region Laterality Modality Computed Tomogra phy 10/12/2024 4:50 PM EDT External Provider IMG CT PROCEDURES Edited Resul t - Final * CT OUTSIDE IMAGES (09/17/2024 8:49 PM EDT) Anatomical Region Laterality Modality Computed Tomogra phy 09/17/2024 8:49 PM EDT Result [facility] Deirdre Hou IMG CT PROCEDURES Final Result * (ABNORMAL) Hepatitis B Core Total Ab, IgG and IgM (09/10/2024 2:40 PM EDT) Hepatitis B Core Total Antibody IgG,IgM Positive(A ) Negative 09/10/2024 4:55 PM EDT [facility] Blood Venous blood specimen / Unknown Venipuncture / Unknown 09/10/2024 2:40 PM EDT 09/10/2024 2:40 PM EDT Result [facility] Eri Becker MD LAB BLOOD ORDERABLES Fin al Result [facility] [address] [place] [address] * Hepatitis B Surface Antigen (09/10/2024 2:40 PM EDT) Hepatitis B Surf Antigen Negative Negative 09/10/2024 4:17 PM EDT [facility] Blood Venous blood specimen / Unknown Venipuncture / Unknown 09/10/2024 2:40 PM EDT 09/10/2024 2:40 PM EDT Eri Becker MD LAB BLOOD ORDERABLES Fin al Result [facility] [address] [place] [address] * Lavender Top (09/04/2024 9:05 AM EDT) Pathologist [facility] Extra Hold for add-ons 09/04/2024 12:01 PM EDT [facility] Comment:Auto resulted. Blood Venous blood specimen / Unknown 09/04/2024 9:05 AM EDT 09/04/2024 9:30 AM EDT Jose Pedroza MD LAB BLOOD ORDERABLES Final R esult Performing Organization Address [facility] Co de Phone Number [facility] [address] [place] [address] * XR Panorex (08/29/2024 3:26 PM EDT) [...] Liss Aiken MD on 08/29/2024 3:56 PM Iglesia Prasad MD IMG XR PROCEDURES Final Resu lt * (ABNORMAL) Potassium (08/27/2024 9:04 AM EDT) Only the most recent of3 resultswithin the time period is included. Potassium, Plasma 5.6(H) 3.6 - 4.9 mmol/L 08/27/2024 9:28 AM EDT [facility] Comment:Hemolyzed, result ma y be falsely increased. Blood Venous blood specimen / Unknown Venipuncture / Unknown 08/27/2024 9:04 AM EDT 08/27/2024 9:10 AM EDT Iglesia Prasad MD LAB BLOOD ORDERABLES Final R esult [facility]ARE [facility] [address] [place] [address] * CARDIOVERSION (08/25/2024 1:27 PM EDT) Anatomical [...] in stable condition. Daniel Parsons MD Cardiac Patient Financial Counselor, [facility]. Hydraulic Boom Operatormarking clerk, Division of Cardiovascular Medicine, [facility]. Mp VYAS CV ELECTROPHYSIOLOGY PROCEDU RES Final Result * CT Angio Cardiac Structure Morphology (08/22/2024 [...] was reviewed interactively on an advanced workstation (Ziplocal) capable of 2 and 3 dimensional displays [...] Data was reviewed interactively on an advanced workstation(Ziplocal) capable of 2 and 3 dimensional displays [...] signing this report, I, the attending physician, attnabeelthat I have personally reviewed the images/data for the aboveexamination(s) and agree with the final edited report. Drafted by Param Lua M.D. on 08/22/2024 11:22 AM Final report signed by Julissa Kovacs MD on 08/22/2024 1:53 PM [address]AS [address] CT PROCEDURES Final Resu lt * ECHO, ADULT TRANSTHORACIC LIMITED (08/21/2024 2:20 PM EDT) BSA 2.14 m2 FLORESITA ISCV Height 177.8 FLORESITA ISCV Weight 96.2 FLORESITA ISCV LVIDd 54 mm FLORESITA ISCV LVIDs 46 mm FLORESITA ISCV IVSd 10 mm FLORESITA ISCV LVPWd 10 mm FLORESITA ISCV LV MASS(C)D 206 g FLORESITA ISCV [facility] CV ECHO LV MASS INDEX 96 g/m2 [...] worsen tricuspid regurgitation, pericardial effusion is smaller. Iglesia Prasad MD CV ECHO PROCEDURES Final Res ult * Helicobacter pylori Antigen (08/20/2024 3:10 AM EDT) Helicobacter pylori Antigen Result Negative Negative 08/20/2024 1:44 PM EDT [facility] Stool Rectum structure / Unknown Non-blood Collection / Unknown 08/20/2024 3:10 AM EDT 08/20/2024 3:39 AM EDT Iglesia Hutchins MD LAB MICROBIOLOGY - GENERAL O RDERABLES Final Result [facility] [address] [place] [address] * (ABNORMAL) Iron & Total Iron Binding Capacity, Plasma (Includes Transferrin) (08/20/2024 3:05 AM EDT) Iron, Plasma 48(L) 50 - 170 ug/dL 08/20/2024 8:31 AM EDT [facility] Transferrin, Plasma 154(L) 200 - 360 mg/dL 08/20/2024 8:31 AM EDT [facility] Total Iron Binding Capacity, Plasma 193(L) 240 - 450 ug/mL 08/20/2024 8:31 AM EDT [facility] Transferrin Saturation 25 14 - 50 % 08/20/2024 8:31 AM EDT [facility] Blood Venous blood specimen / Unknown Venipuncture / Unknown 08/20/2024 3:05 AM EDT 08/20/2024 3:31 AM EDT Jameson Issa MD LAB BLOOD ORDERABLES Final Re sult Performing Organization Address [facility]/ZIP Co de Phone Number [facility] [address] [place] [address] * (ABNORMAL) Vitamin D 25 Hydroxy (08/20/2024 3:05 AM EDT) Vitamin D 25 Hydroxy 16.8(L) 20.0 - 80.0 ng/mL 08/20/2024 9:57 AM EDT [facility] Blood Venous blood specimen / Unknown Venipuncture / Unknown 08/20/2024 3:05 AM EDT 08/20/2024 3:30 AM EDT Narrative [facility] - 08/20/2024 9:57 AM EDT Testing performed on [employer], standardized against NIST SRM 2972. When testing [...] ORDERABLES Final Re sult Performing Organization Address [facility] Co de Phone Number [facility] [address] [place] [address] * (ABNORMAL) PTH, intact (08/20/2024 3:05 AM EDT) PTH Intact Total 527(H) 9 - 77 pg/mL 08/20/2024 10:17 AM EDT [facility] Blood Venous blood specimen / Unknown Venipuncture / Unknown 08/20/2024 3:05 AM EDT 08/20/2024 3:39 AM EDT Narrative [facility] - 08/20/2024 10:17 AM EDT Assay performed by immunoassay at the [facility]. Performed on [employer] Client Server Developer chemiluminescent immunoassay, tractable to the World Health Organization's first international standard for PTH from the [facility], Code 79/500. Results obtained from different test methods or kits cannot be used interchangeably. Jameson Issa MD LAB BLOOD ORDERABLES Final Re sult Performing Organization Address City/[facility] Co de Phone Number [facility] [address] [place] [address] * (ABNORMAL) Ferritin (08/20/2024 3:05 AM EDT) Pathologist [facility] Ferritin, Serum 755(H) 20 - 400 ng/mL 08/20/2024 8:40 AM EDT [facility] Blood Venous blood specimen / Unknown Venipuncture / Unknown 08/20/2024 3:05 AM EDT 08/20/2024 3:30 AM EDT Jameson Issa MD LAB BLOOD ORDERABLES Final Re sult Performing Organization Address [facility] [place] [address] * Vancomycin, Random, Plasma (08/18/2024 4:17 AM EDT) Only the most recent of11 resultswithin the time period is included. [facility] Vancomycin, Random, Plasma 27.5 ug/mL 08/18/2024 4:58 AM EDT [facility] Blood Venous blood specimen / Unknown Venipuncture / Unknown 08/18/2024 4:17 AM EDT 08/18/2024 4:33 AM EDT Pascual Jama MD LAB BLOOD ORDERABLES Final R esult Performing Organization Address [facility] Co de Phone Number [facility] [address] [place] [address] * CT Angio Pulmonary Embolism (08/17/2024 6:55 [...] Detected Not Detected 08/18/2024 10:49 AM EDT [facility] Influenza A Virus PCR Result Not Detected Not Detected 08/18/2024 10:49 AM EDT [facility] Influenza B Virus PCR Result Not Detected Not Detected 08/18/2024 10:49 AM EDT [facility] Respiratory Syncytial Virus (RSV) PCR Result Not Detected Not Detected 08/18/2024 10:49 AM EDT [facility] Swab Nasopharyngeal structure / Unknown Non-blood Collection / Unknown 08/17/2024 5:57 PM EDT 08/17/2024 6:03 PM EDT Narrative [facility] - 08/18/2024 10:49 AM [...] testing. This test was performed on the [employer] Respiratory Viral Panel, a PCR-based method. Negative [...] O RDERABLES Final Result Performing Organization Address City/[facility]/ZIP Co de Phone Number [facility] [address] [place] [address] * (ABNORMAL) Hemoglobin and Hematocrit, Blood (08/16/2024 9:42 AM EDT) Only the most recent of3 resultswithin the time period is included. HGB 7.0(L) 13.7 - 17.5 g/dL LAB HEMATOLOGY METHOD 08/16/2024 10:01 AM EDT [facility] HCT 22.4(L) 40.0 - 51.0 % LAB HEMATOLOGY METHOD 08/16/2024 10:01 AM EDT [facility] Blood Venous blood specimen / Unknown Venipuncture / Unknown 08/16/2024 9:42 AM EDT 08/16/2024 9:59 AM EDT Pascual Jama MD LAB BLOOD ORDERABLES Final R esult Performing Organization Address City/[facility]/ZIP Co de Phone Number [facility] [address] [place] [address] * Transfuse RBC (08/15/2024 11:33 AM EDT) Amberly Fernández MD BLOOD TRANSFUSION ORDERABLE S Final Result * Prepare Leukocyte Reduced RBC: 1 Units (08/15/2024 4:40 AM EDT) Product Code [id number] BLOO D BANK Dispense Status Transfused BLOOD BANK Blood Expiration Date [id number] BLOOD BANK Unit Number [id number] B LOOD BANK Product Blood Type 7300 BLOOD BANK Blood Type B+ BLOOD BANK Crossmatch Compatible BLOOD BANK Other Amberly Fernández MD BLOOD BANK PRODUCT ORDERABL ES Final Result Performing Organization Address City/[facility]/ZIP Co de Phone Number BLOOD BANK [address] 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 Anatomical [...] MD IMG XR PROCEDURES Final Result * ID CRITICAL CARE, E/M 30-74 MINUTES (08/10/2024 4:07 [...] pericardiocentesis and placement of drain. Hemodialysis resumed 7/4 given worsening uremia, volume status, and hyperkalemia [...] MD IN CLINIC/BEDSIDE ORDERABLES Final Result * ID CRITICAL CARE, E/M 30-74 MINUTES (08/09/2024 8:44 [...] pericardiocentesis and placement of drain. Hemodialysis resumed 7/4 given worsening uremia, volume status, and hyperkalemia and concern that pericardial effusion may be secondary to uremic pericarditis. Will wean sedation as possible to assess for extubation today following completion of iHD. us Iglesia Hutchins MD IN CLINIC/BEDSIDE ORDERABLES Final Result * ID INSERT NON-TUNNEL CV CATH, HC INSERT NON-TUNNEL CV CATH, CVC TRIPLE LUMEN (SMARTFORM LINK) (08/08/2024 3:00 PM EDT) Iglesia Murphy MD - 08/08/2024 3:00 PM EDT Iglesia Hutchins MD 08/08/2024 4:17 PM Central Line Performed by: Angel Briones MD Authorized by: Iglesia Hutchins MD Consent: Consent obtained: Written Consent given by: Healthcare agent Risks, benefits, and alternatives were discussed: yes Risks discussed: Arterial puncture, bleeding, incorrect placement, infection, nerve damage and pneumothorax Alternatives discussed: No treatment and delayed treatment [place] protocol: Procedure explained and questions answered to [...] MD IN CLINIC/BEDSIDE ORDERABLES Final Result * ID CRITICAL CARE, E/M 30-74 MINUTES (08/08/2024 12:14 PM EDT) Iglesia Murphy MD - 08/08/2024 12:14 PM EDT Iglesia [...] antimicrobial therapy, lung protective ventilation, hemodynamic support. Iglesia Hutchins MD IN CLINIC/BEDSIDE ORDERABLES Final Result * (ABNORMAL) Lactate dehydrogenase (08/08/2024 12:16 AM EDT) LDH, Plasma 294(H) 116 - 250 U/L 08/08/2024 7:49 AM EDT [facility] Comment:Hemolyzed, result ma y be falsely increased. Blood Arterial blood specimen / Unknown Venipuncture / Unknown 08/08/2024 12:16 AM EDT 08/08/2024 12:30 AM EDT Iglesia Hutchins MD LAB BLOOD ORDERABLES Final R esult [facility] [address] [place] [address] * Fungal Culture, Sterile Body Fluid (NOT CSF) and AVELINA (08/07/2024 6:20 PM EDT) Culture No Fungal Growth at 3 Weeks 08/29/2024 10:26 AM EDT [facility] AVELINA No fungal elements seen 08/29/2024 10:26 AM EDT [facility] Pericardial Fluid Pericardial structure / Unknown Non-blood Collection / Unknown 08/07/2024 6:20 PM EDT 08/07/2024 6:20 PM EDT us Iglesia Hutchins MD LAB MICROBIOLOGY - GENERAL O RDERABLES Final Result Performing Organization Address City/[facility]/ZIP Co de Phone Number [facility] [facility] [address] [place] [address] * AFB Culture and Acid Fast Stain - Pleural Right (08/07/2024 6:20 PM EDT) AFB Culture No Mycobacterial Growth at 6 Weeks 09/19/2024 9:56 AM EDT [facility] Acid Fast Stain No acid fast bacilli seen 09/19/2024 9:56 AM EDT [facility] Pericardial Fluid Pericardial structure / Unknown Non-blood Collection / Unknown 08/07/2024 6:20 PM EDT 08/07/2024 6:20 PM EDT us Iglesia Hutchins MD LAB MICROBIOLOGY - GENERAL O RDERABLES Final Result [facility] [address] [place] [address] * Chylomicron Electrophoresis (Reflex Only) (08/07/2024 4:47 PM EDT) Chylomicron Electrophoresis Billed 08/13/2024 5:03 PM EDT [facility] ([facility]) Fluid 08/07/2024 4:47 PM EDT 08/07/2024 5:50 PM EDT Narrative [facility] RAJESH) - 08/13/2024 5:03 PM EDT Performed By: [facility] [address] [place] [address] Cafeteria Clerk: Deangelo Gee MD, PhD CLIA Number: [id number] Iglesia Hutchins MD LAB REF LAB BLOOD AND FLUID ORD Final Result [facility] ([facility] [address] [place] [address] * (ABNORMAL) TRG BF with RFLX to CHYLO (SO) (08/07/2024 4:47 PM EDT) Triglyceride, Fluid 158 mg/dL 08/13/2024 5:03 PM EDT [facility]) Triglyceride Fluid Source Pericardial fl 08/13/2024 5:03 PM EDT [facility] ([facility]) Chylomicron Screen, Body Fluid Present(A) Absent 08/13/2024 5:03 PM EDT [facility] ([facility]) Fluid 08/07/2024 4:47 PM EDT 08/07/2024 5:50 PM EDT Narrative [facility] ([facility]) - 08/13/2024 5:03 PM EDT INTERPRETIVE INFORMATION: Triglycerides, Fluid For information on body fluid reference ranges and/or interpretive guidance visit http://[facility]/bodyfluids/ This test was developed and its performance characteristics determined by [facility]. It has not been cleared or approved by the US Food and Drug Administration. This test was performed in a CLIA certified laboratory and is intended for clinical purposes. Chylomicrons were detected. 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 INTERPRETIVE INFORMATION: Chylomicron Screen, Body Fluid This test was developed and its performance characteristics determined by [facility]. It has not been cleared or approved by the U.S. Food and Drug Administration. This test was performed in a CLIA-certified laboratory and is intended for clinical purposes. Performed By: [facility] [address] [place] [address] Cafeteria Clerk: Deangelo Gee MD, PhD CLIA Number: [id number] Iglesia Hutchins MD LAB REF LAB BLOOD AND FLUID ORD Final Result Performing Organization Address [facility] Co de Phone Number [facility] ([facility]) [address] [place] [address] * Protein, Total, Body Fluid (08/07/2024 4:47 PM EDT) TOTAL PROTEIN, FLUID 4.4 g/dL 08/11/2024 6:57 PM EDT [facility] ([facility]) TOTAL PROTEIN FLUID SOURCE Pericardial fl 08/11/2024 6:57 PM EDT [facility] ([facility]) Pericardial Fluid Non-blood Collection / Unknown 08/07/2024 4:47 PM EDT 08/07/2024 5:50 PM EDT Narrative [facility] ([facility]) - 08/11/2024 6:57 PM EDT INTERPRETIVE INFORMATION: Total Protein, Body Fluid For information on body fluid reference ranges and/or interpretive guidance visit [email or web address]/bodyfluids/ This test was developed and its performance characteristics determined by [facility]. It has not been cleared or approved by the US Food and Drug Administration. This test was performed in a CLIA certified laboratory and is intended for clinical purposes. Performed By: [facility] [address] [place] [address] Cafeteria Clerk: Deangelo Gee MD, PhD CLIA Number: [id number] Iglesia Hutchins MD LAB REF LAB BLOOD AND FLUID ORD Final Result Performing Organization Address [facility] Co de Phone Number [facility] ([facility]) [address] [place] [address] * ALBUMIN,OTHER,MISC FLUID (SO) (08/07/2024 4:47 PM EDT) ALBUMIN, FLUID 1711 mg/dL 08/12/2024 1:48 AM EDT [facility] ([facility]) Specimen Source Pericardial 08/12/2024 1:48 AM EDT [facility] ([facility]) Fluid Pericardial structure / Unknown 08/07/2024 4:47 PM EDT 08/07/2024 5:50 PM EDT Narrative [facility] ([facility]) - 08/12/2024 1:48 AM EDT INTERPRETIVE INFORMATION: Albumin, Body Fluid A reference interval has not been established for body fluid specimens. This test was developed and its performance characteristics determined by [facility]. It has not been cleared or approved by the U.S. Food and Drug Administration. This test was performed in a CLIA-certified laboratory and is intended for clinical purposes. Performed By: [facility] [address] [place] [address] Cafeteria Clerk: Deangelo Gee MD, PhD CLIA Number: [id number] Iglesia Hutchins MD LAB BODY FLUIDS AND STOOLS O RDERABLES Final Result Performing Organization Address [facility] Co de Phone Number [facility] ([facility]) [address] [place] [address] * GLUCOSE, BODY FLUID (SO) (08/07/2024 4:47 PM EDT) GLUCOSE, FLUID 52 mg/dL 08/11/2024 6:56 PM EDT [facility] ([facility]) GLUCOSE FLUID SOURCE Pericardial fl 08/11/2024 6:56 PM EDT [facility] ([facility]) Pericardial Fluid Non-blood Collection / Unknown 08/07/2024 4:47 PM EDT 08/07/2024 5:50 PM EDT Narrative [facility] ([facility]) - 08/11/2024 6:56 PM EDT INTERPRETIVE INFORMATION: Glucose, Body Fluid For information on body fluid reference ranges and/or interpretive guidance visit [email or web address] This test was developed and its performance characteristics determined by [facility]. It has not been cleared or approved by the US Food and Drug Administration. This test was performed in a CLIA certified laboratory and is intended for clinical purposes. Performed By: [facility] [address] [place] [address] Cafeteria Clerk: Deangelo Gee MD, PhD CLIA Number: [id number] Iglesia Hutchins MD LAB REF LAB BLOOD AND FLUID ORD Final Result Performing Organization Address [facility] Co de Phone Number [facility] ([facility]) [address] [place] [address] * Lactate Dehydrogenase Total, Body Fluid (SO) (08/07/2024 4:47 PM EDT) Lactate Dehydrogenase Total, Body Fluid 1702 U/L 08/11/2024 6:57 PM EDT [facility] ([facility]) LDH Fluid Source Pericardial fl 08/2024 6:57 PM EDT [facility] ([facility]) Pericardial Fluid Non-blood Collection / Unknown 08/07/2024 4:47 PM EDT 08/07/2024 5:50 PM EDT Narrative [facility] ([facility]) - 08/11/2024 6:57 PM EDT INTERPRETIVE INFORMATION: Lactate Dehydrogenase Total, Body Fluid For information on body fluid reference ranges and/or interpretive guidance visit [email or web address]/bodyfluids/ This test was developed and its performance characteristics determined by [facility]. It has not been cleared or approved by the US Food and Drug Administration. This test was performed in a CLIA certified laboratory and is intended for clinical purposes. Performed By: [facility] [address] [place] [address] Cafeteria Clerk: Deangelo Gee MD, PhD CLIA Number: [id number] Iglesia Hutchins MD LAB REF LAB BLOOD AND FLUID ORD Final Result Performing Organization Address [facility] Co de Phone Number [facility] ([facility]) [address] [phone] * Cholesterol Fluid Battery (08/07/2024 4:47 PM EDT) CHOLESTEROL, FLUID 93 mg/dL 08/11/2024 2:23 PM EDT [facility] ([facility]) CHOLESTEROL FLUID SOURCE Pericardial fl 08/11/2024 2:23 PM EDT [facility] ([facility]) Pericardial Fluid Non-blood Collection / Unknown 08/07/2024 4:47 PM EDT 08/07/2024 5:50 PM EDT Narrative [facility] ([facility]) - 08/11/2024 2:23 PM EDT INTERPRETIVE INFORMATION: Cholesterol, Body Fluid For information on body fluid reference ranges and/or interpretive guidance visit [email or web address]/bodyfluids/ This test was developed and its performance characteristics determined by [facility]. It has not been cleared or approved by the US Food and Drug Administration. This test was performed in a CLIA certified laboratory and is intended for clinical purposes. Performed By: [facility] [address] [place] [address] Cafeteria Clerk: Deangelo Gee MD, PhD CLIA Number: [id number] Iglesia Hutchins MD LAB REF LAB BLOOD AND FLUID ORD Final Result Performing Organization Address City/[facility]/ZIP Co de Phone Number [facility] ([facility]) [address] [place] [address] * Adenosine Deaminase; N/A; N/A; N/A; N/A; N/A; Greater than a week (N/A) - Miscellaneous Test (08/07/2024 4:47 PM EDT) Test name Adenosine Deaminase 08/13/2024 4:01 PM EDT [facility] Test Result SEE SCANNED DOCUMENT 08/13/2024 4:01 PM EDT [facility] See Scanned Result 08/13/2024 4:01 PM EDT [facility] Pericardial Fluid Pericardial structure / Unknown Non-blood Collection / Unknown 08/07/2024 4:47 PM EDT 08/07/2024 8:11 PM EDT us Iglesia Hutchins MD LAB REF LAB BLOOD AND FLUID ORD Final Result [facility] [address] [place] [address] * Amylase, body fluid (08/07/2024 4:47 PM EDT) AMYLASE BODY FLUID 113 U/L 08/11/2024 6:56 PM EDT [facility] ([facility]) AMYLASE BODY FLUID SOURCE Drain 08/11/2024 6:56 PM EDT [facility] ([facility]) Drain Pericardial structure / Unknown 08/07/2024 4:47 PM EDT 08/07/2024 8:11 PM EDT Narrative [facility] ([facility]) - 08/11/2024 6:56 PM EDT INTERPRETIVE INFORMATION: Amylase, Body Fluid For information on body fluid reference ranges and/or interpretive guidance visit [email or web address]/bodyfluids/ This test was developed and its performance characteristics determined by [facility]. It has not been cleared or approved by the US Food and Drug Administration. This test was performed in a CLIA certified laboratory and is intended for clinical purposes. Performed By: [facility] [address] [place] [address] Cafeteria Clerk: Deangelo Gee MD, PhD CLIA Number: [id number] Iglesia Hutchins MD LAB BODY FLUIDS AND STOOLS O RDERABLES Final Result [facility] ([facility]) [address] [place], [place] [phone] * Non-Gynecologic Cytology (08/07/2024 4:47 PM EDT) Case Report Cytology Case: [id number] Authorizing Provider: Iglesia Hutchins MD Collected: 08/07/2024 1647 Ordering Location: Cardiac Field Pipe Lines Supervisor Received: 08/11/2024 0852 Pathologist: Izzy Mcwilliams MD Specimen: Pericardial Fluid, PERICARDIAL FLUID 08/12/2024 12:37 PM EDT [facility] Final Diagnosis A. PERICARDIAL FLUID - NO EVIDENCE OF MALIGNANCY - BLOODY FLUID WITH ACUTE INFLAMMATORY CELLS 08/12/2024 12:37 PM EDT [facility] at 1237 EDT Clinical History septic, IVDU, heart failure, cirrhosis, ESRD 08/12/2024 12:37 PM EDT [facility] Previous Cancer No 08/12/2024 12:37 PM EDT [facility] Gross Description A. 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 Pericardium Pericardiocentesis performed by the subxiphoid approach. The pre-procedural pericardial pressure was 19 mmHg. 600 mL of serosanguineous fluid was removed from the pericardial cavity. The post-procedural pericardial pressure was 10 mmHg. Iglesia Hutchins MD CV CARDIAC CATH PROCEDURES F inal Result * ID CRITICAL CARE, E/M 30-74 MINUTES (08/07/2024 8:12 [...] * (ABNORMAL) Triglycerides (08/07/2024 5:13 AM EDT) Triglycerides, Plasma 319(H) <150 mg/dL 08/07/2024 5:54 AM EDT [facility] Comment: Triglyceride Reference Range (age >17 years): Desirable: <150 mg/dL Borderline high: 150 to 199 mg/dL High: 200 to 499 mg/dL Very high: >499 mg/dL Increased risk of pancreatitis: >1000 mg/dL Fasting greater than or equal to 12 hours? No 08/07/2024 5:54 AM EDT [facility] Blood Arterial blood specimen / Unknown Venipuncture / Unknown 08/07/2024 5:13 AM EDT 08/07/2024 5:25 AM EDT [facility] BLOOD ORDERABLES Final Resu lt Performing Organization Address City/[facility]/ZIP Co de Phone Number [facility] [address] [place] [address] * HIV 1 & 2 Antibody/Antigen Screen (08/01/2024 9:13 AM EDT) HIV 1 & 2 Antibody/Antigen Screen Non Reactive Non Reactive 08/01/2024 10:11 AM EDT [facility] Comment:Screening for HIV 1 & 2 antibodies, and P24 antigen is NONREACTIVE. No confirmatory testing is required. 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 Yes Care Teams Exercise Teacher Relationship Specialty Start Date End Date Pcp, Sumaya [address] [place] [address] PCP - General Family Medicine 07/26/21 Carole Avila LPN TCM Nurse 10/22/24
--- OUTSIDE RECORDS SUMMARY | 2024-11-07 08:51 | XMS_ITS | Encounter Summary ---
Author Organization [facility] Address [address] [place] [address] Care Team Providers Care Commodity Buyer Name Role Phone Pcp, No Primary Care [...] 05/07/2024 How often do you attend [facility] or yazidism services? Patient unable to answer [...] How often do you attend nondenominational or yazidism serv ices? Never 07/31/2024 Do [...] medical care, and heating? 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 0 03/16/2022 CAGE Questionnaire Score 0 023 Utilities Answer Date Recorded In the past 12 months has th e electric, gas, oil, or water [employer] threatened to shut off services in your [...] Description 12/02/2024 2:20 PM EDT Office Visit [place] [facility] [address], [address] [place] [address] Cory Archer MD [address] [place] [address] 12/30/2024 3:40 PM EST Office Visit [facility] [place] [address] [facility]. [address] [place] [address] Daniel Parsons MD [address] [place] [address] 01/13/2025 1:10 PM EST Appointment [facility] [address] [place] [phone] documented as of this encounter Goals Goal [...] documented as of this encounter Care Teams Commodity Buyer Relationship Specialty Start Date End Date Pcp, Sumaya [address] [place] [address] PCP - General Family Medicine 07/26/21 documented as of this encounter
--- OUTSIDE RECORDS SUMMARY | 2024-11-07 08:51 | XMS_ITS | Encounter Summary ---
Author Organization [facility] Address [address] [place] [address] Care Team Providers Care Golf Ball Cover Treater Name Role Phone Pcp, No Primary Care [...] How often do you attend [facility] or orthodox services? Patient unable to answer 05/07/2024 Do [...] How often do you attend advent or orthodox serv ices? Never 07/31/2024 Do you belong [...] medical care, and heating? 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 0 03/16/2022 CAGE Questionnaire Score 0 023 Utilities Answer Date Recorded In the past 12 months has th e electric, gas, oil, or water [employer] threatened to shut off services in your [...] Month) No 09/24/2024 10:44 PM EDT Cristian Stokes, CAMILO 2. Non-Specific Active Suici veronica Thoughts (Past 1 Month) No 09/24/2024 10:44 PM EDT Maryan Stokes RN 6. Suicidal Behavior (Lifetime) No 10:44 PM EDT Cristian Stokes RN documented as of this encounter Plan of Treatment Upcoming Encounters Date Type Department Care Team (Late st Contact Info) Description 12/02/2024 2:20 PM EDT Office Visit [facility] [facility] [address] [place] [address] Cory Archer MD [address] [place] [address] 12/30/2024 3:40 PM EST Office Visit [facility] [place] [address] [facility] [place] [address] Daniel Parsons MD [address] [place] [address] 01/13/2025 1:10 PM EST Appointment [facility] [address] [place] [phone] documented as of this encounter Goals Goal [...] documented as of this encounter Care Teams Golf Ball Cover Treater Relationship Specialty Start Date End Date Pcp, No [address] [place] [address] PCP - General Family Medicine 07/26/21 documented as of this encounter
--- OUTSIDE RECORDS SUMMARY | 2024-11-07 08:52 | XMS_ITS ---
Author Organization [facility] ([facility]) Address [address] [place] [address] Care Team Providers Care Income Tax Advisor Name Role Phone Unavailable Unavailable Unavailable Allergies, Adverse Reactions, Alerts This patient has no known allergies or adverse reactions. Problems This patient has no known problems.
--- OUTSIDE RECORDS SUMMARY | 2024-11-07 08:52 | XMS_ITS | Encounter Summary ---
Author Organization Healthcare Address [address] [place] [address] Care Team Providers Care Hygiene Coordinator Name Role Phone Pcp, No Primary Care Provider Carole Bonner LPN Unavailable Unavailable Encounter Details Date Type Department Care Team (Late st Contact Info) Description 11/07/2024 Telephone [place] [facility] [address] [place] [address] Rehana Ross, RN [facility] Social History Tobacco [...] How often do you attend chur or samaritan services? Patient unable to answer 05/07/2024 Do you belong to any clubs o r organizations such as christian groups, unions, fraternal or athletic groups, or [...] Never 07/31/2024 How often do you attend christian or samaritan serv ices? Never 07/31/2024 Do you belong to any clubs o r organizations such as christian groups, unions, fraternal or athletic groups, or [...] medical care, and heating? Very hard 07/31/2024 [facility] of Occupat ional Health - Occupational Stress [...] or living in a longterm (including now)? No 10/22/2024 [facility] Utilities Answer Date Recorded In the [...] drink first t terri in the morning (EYE-SANE RN) to steady your nerves or to get rid of a hangover? 0 03/16/2022 CAGE Questionnaire Score 0 023 Sex and Gender Information Value Date Recorded Sex Assigned at Not on file Legal Sex Male 7:46 PM EDT Gender Identity Not on file Sexual Orientation Not on file documented as of this encounter Miscellaneous Notes * Telephone Encounter - Rehana Ross RN - 11/07/2024 8:38 AM EDT S/W sister Clara Birch (takes care of all of his appts), patient on the phone as well Scheduled hepatology appt Verified address Sent appt reminder in mail per their request No questions, thanked me for calling documented in this encounter Plan of Treatment Upcoming Encounters Date Type Department Care Team (Late st Contact Info) Description 12/02/2024 2:20 PM EDT Office Visit [place] [facility] [address] [place] [phone] Cory Archer MD [address] [place] [address] 12/30/2024 3:40 PM EST Office Visit [facility] [address] [facility]. [address] [place] [address] Daniel Parsons MD [address] [place] [phone] 01/13/2025 1:10 PM EST Appointment [facility] [address] [place] [phone] documented as of this encounter Goals Goal Patient Goal Type Associated Problems Recent Progress Patient-Stated? Author Autogenera elle Goal Care Plan Autogenerated Problem No Sergo Pedroza Autogenera elle Goal Care Plan Autogenerated Problem No Leisa Anaya RN Autogenera elle Goal Care Plan Autogenerated Problem No Kai Ying RN Autogenera elle Goal Care Plan Autogenerated Problem No Yasemin Bravo documented as of this encounter Visit Diagnoses Not on filedocumented in this encounter Additional Health Concerns Active Problems Noted Date Diagnosed Date Autogenerated Problem 05/13/2024 Autogenerated Problem 08/05/2024 Autogenerated Problem 10/14/2024 Autogenerated Problem 10/29/2024 Infection Onset Date Last Indicated Resolved Time MRSA 05/06/2024 10/12/2024 Assessment Noted Time A Body Mass Index follow-up plan has been documented for the patient 10/17/2024 12:06 PM EDT documented as of this encounter Care Teams Hygiene Coordinator Relationship Specialty Start Date End Date Pcp, No [address] [place] [address] PCP - General Family Medicine 07/26/21 Carole Avila LPN TCM Nurse 10/22/24 documented as of this encounter
--- OUTSIDE RECORDS SUMMARY | 2024-11-07 08:52 | XMS_ITS | Encounter Summary ---
Author Organization [facility] Address [address] [place] [address] Care Team Providers Care Cold Roller Name Role Phone Pcp, No Primary Care Provider Unavailabl e Encounter Details Date Type Department Care Team (Latest Contact Info) Description 10/13/2024 Travel Social History Tobacco Use Types Packs/Day [...] answer 05/07/2024 How often do you attend [facility] or islam services? Patient unable to answer [...] How often do you attend hindu or islam serv ices? Never 07/31/2024 Do [...] medical care, and heating? Very hard 07/31/2024 [facility] of Occupat ional Health - Occupational Stress [...] time in the past 12 m [facility], were you homeless or living in a prison (including now)? Yes 10/13/2024 [facility] Utilities Answer Date Recorded In the past 12 months has th e [employer], gas, oil, or water [employer] threatened to shut off services in your [...] drink first t terri in the morning (EYE-LEMON PICKER) to steady your nerves or to get [...] Date of Assessment Author No Risk Indicated 10/13/2024 8:00 PM EDT Wallace Acosta RN * Question Answer Date of Assessment Author 1. Wish to be (Past 1 Month) No 025 8:00 PM EDT Leonora Acosta RN 2. Non-Specific Active Suici veronica Thoughts (Past 1 Month) No 10/13/2024 8:00 PM EDT Leonora Acosta RN 6. Suicidal Behavior (Lifetime) No 8:00 PM EDT Leonora Acosta RN documented as of this encounter Plan of Treatment Upcoming Encounters Date Type Department Care Team (Late st Contact Info) Description 12/02/2024 2:20 PM EDT [facility] [address], [address] [place] [address] Cory Archer MD [address] [place] [address] 12/30/2024 3:40 PM EST Office Visit [facility] [place] 800 [facility]. [address] [place] [address] Daniel Parsons MD [address] [place] [phone] 01/13/2025 1:10 PM EST Appointment [facility] [address] [place] [address] documented as of this encounter Goals Goal [...] documented as of this encounter Care Teams Cold Roller Relationship Specialty Start Date End Date Pcp, No [address] [place] [address] PCP - General Family Medicine 07/26/21 documented as of this encounter
--- OUTSIDE RECORDS SUMMARY | 2024-11-07 08:52 | XMS_ITS | Encounter Summary ---
Author Organization [facility] Address [address] [place] [address] Care Team Providers Care Knitting Machine Mechanic Name Role Phone Pcp, No Primary Care Provider Unavailabl e Encounter Details Date Type Department Care Team (Latest Contact Info) Description 10/15/2024 Travel Social History Tobacco Use Types Packs/Day [...] do you attend [facility] or religion services? Patient unable to answer 05/07/2024 Do you belong to any clubs o r organizations such as evangelical groups, unions, fraternal or athletic groups, or [...] Never 07/31/2024 How often do you attend evangelical or religion serv ices? Never 07/31/2024 Do you belong to any clubs o r organizations such as evangelical groups, unions, fraternal or athletic groups, or [...] medical care, and heating? Very hard 07/31/2024 [facility] of Occupat ional Health - [...] any time in the past 12 m [facility], were you homeless or living in a mcc (including now)? Yes 10/13/2024 [facility] Utilities Answer Date Recorded In the past 12 months has th e [employer], gas, oil, or water [employer] threatened to shut off services in your [...] drink first t terri in the morning (EYE-RN ADVICE) to steady your nerves or to get [...] Date of Assessment Author No Risk Indicated 10/15/2024 8:00 PM EDT Jose Salgado RN * Question Answer Date of Assessment Author 1. Wish to be (Past 1 Month) No 025 8:00 PM EDT Jose Salgado RN 2. Non-Specific Active Suici veronica Thoughts (Past 1 Month) No 10/15/2024 8:00 PM EDT Yessenia Salgado RN 6. Suicidal Behavior (Lifetime) No 8:00 PM EDT Jose Salgado RN documented as of this encounter Plan of Treatment Upcoming Encounters Date Type Department Care Team (Late st Contact Info) Description 12/02/2024 2:20 PM EDT [facility] Visit [facility] [address], [address] [place] [address] Cory Archer MD [address] [place] [address] 12/30/2024 3:40 PM EST Office Visit [facility] [place] [facility] 800 [facility]. [address] [place] [address] Daniel Parsons MD [address] [place] [address] 01/13/2025 1:10 PM EST Appointment [facility] [address] [place] [address] documented as of this encounter Goals Goal [...] documented as of this encounter Care Teams Knitting Machine Mechanic Relationship Specialty Start Date End Date Pcp, No [address] [place] [address] PCP - General Family Medicine 07/26/21 documented as of this encounter
--- OUTSIDE RECORDS SUMMARY | 2024-11-07 08:52 | XMS_ITS | Encounter Summary ---
Author Organization [facility] Address [address] [place] [address] Care Team Providers Care Child Care Associate Name Role Phone Pcp, No Primary Care Provider Carole Bonner LPN Unavailable Unavailable Encounter Details Date Type Department Care Team (Late st Contact Info) Description 10/28/2024 [facility] Outreach [facility] [address], [address] [place] [address] Tracee Negrete Social History Tobacco Use Types [...] How often do you attend chur or rastafari services? Patient unable to answer 05/07/2024 Do you belong to any clubs o r organizations such as sikhism groups, unions, fraternal or athletic groups, or [...] Never 07/31/2024 How often do you attend sikhism or rastafari serv ices? Never 07/31/2024 Do you belong to any clubs o r organizations such as sikhism groups, unions, fraternal or athletic groups, or [...] medical care, and heating? Very hard 07/31/2024 [facility] [place] of Occupat ional Health - Occupational Stress [...] any time in the past 12 m [facility], were you homeless or living in a detention (including now)? No 10/22/2024 [facility] Utilities Answer Date Recorded In the past [...] drink first t terri in the morning (EYE-HAND TOOL FILER) to steady your nerves or to get rid of a hangover? 0 03/16/2022 CAGE Questionnaire Score 0 023 Sex and Gender Information Value Date Recorded Sex Assigned at Not on file Legal Sex Male 7:46 PM EDT Gender Identity Not on file Sexual Orientation Not on file documented as of this encounter Miscellaneous Notes * Progress Notes - Tracee Negrete - 10/28/2024 8:22 AM EDT Contact attempt: Attempt 3 since beginning [employer] workflow. SW is attempting to connect pt to HCV care. Pt was found to have HCV RNA+ result in previous lab history. Outcome of contact attempt is Left a Message In need of 10/13/2024 [facility] appointment reschedule. Pt. was inpatient at the time of that appointment.No primary contact information. [phone] sent text message to all relative listedin pt. chart. Received a call back from Kike [phone] and he reports that he has not spoken to pt. inmonths, does not have a good number for the pt., and that all family have blocked him from knowing a nything about the pt. Pt. stated that's why I don't keep up with those people. Father was inquiring about pt.'s inpatient status and LTC informed father that this LTC could not disclose that information and that LTC was attempting to reach pt. for follow up. Father informed LTC that the best way to reach pt. is through his mother, sister. Next f/u contact attempt scheduled for 11/27/2024. documented in this encounter Plan of Treatment Upcoming Encounters Date Type Department Care Team (Late st Contact Info) Description 12/02/2024 2:20 PM EDT Office Visit [facility] Medicine Specialties [address] [place] [address] Cory Archer MD [address] [place] [address] 12/30/2024 3:40 PM EST Office Visit [facility] [place] [facility] [address] [facility]. [address] [place] [address] Daniel Parsons MD [address] [place] [address] 01/13/2025 1:10 PM EST Appointment [facility] [address] [place] [address] documented as of this encounter [...] documented as of this encounter Care Teams Child Care Associate Relationship Specialty Start Date End Date Pcp, No [address] [place] [address] PCP - General Family Medicine 07/26/21 Carole Avila LPN TCM Nurse 10/22/24 documented as of this encounter
--- OUTSIDE RECORDS SUMMARY | 2024-11-07 08:52 | XMS_ITS | Encounter Summary ---
Author Organization [facility] Address [address] [place] [address] Care Team Providers Care Freelance Art Director Name Role Phone Pcp, No Primary Care Provider Unavailabl e Encounter Details Date Type Department Care Team (Late st Contact Info) Description 10/12/2024 Orders Only External Location [address] [place] [address] Provider, External Social History Tobacco Use Types Packs/Day Years [...] How often do you attend [facility] or mu-ism services? Patient unable to answer 05/07/2024 Do [...] How often do you attend hindu or mu-ism serv ices? Never 07/31/2024 Do you belong [...] medical care, and heating? Very hard 07/31/2024 [facility] [place] of Occupat ional [facility] - Occupational Stress Questionnaire Answer Date [...] any time in the past 12 m [facility], were you homeless or living in a care home (including now)? Yes 10/13/2024 [facility] Utilities Answer Date Recorded In the past [...] drink first t terri in the morning (EYE-GROUP DYNAMICS INSTRUCTOR) to steady your nerves or to get [...] Date of Assessment Author No Risk Indicated 10/16/2024 7:45 AM EDT Maria Isabel Gonzalez RN * Question Answer Date of Assessment Author 1. Wish to be (Past 1 Month) No 10/16/2024 7:45 AM EDT Maria Isabel Gonzalez, CAMILO 2. Non-Specific Active Suici veronica Thoughts (Past 1 Month) No 10/16/2024 7:45 AM EDT Monico Gonzalez, CAMILO 6. Suicidal Behavior (Lifetime) No 7:45 AM EDT Maria Isabel Gonzalez RN documented as of this encounter Plan of Treatment Upcoming Encounters Date Type Department Care Team (Late st Contact Info) Description 12/02/2024 2:20 PM EDT Office Visit [facility] [address], [address] [place] [address] Cory Archer MD [address] [place] [address] 12/30/2024 3:40 PM EST Office Visit [facility] [place] [facility] 800 [facility]. [address] [place] [address] Daniel Parsons MD [address] [place] [phone] 01/13/2025 1:10 PM EST Appointment [facility] [address] [place] [address] documented as of this encounter Goals Goal Patient Goal Type Associated Problems Recent Progress Patient-Stated? Author Autogenerat ed Goal Care Plan Autogenerated Problem No Sergo Pedroza Autogenerat ed Goal Care Plan Autogenerated Problem No Leisa Anaya RN documented as of this encounter Procedures Procedure Name Priority Date/Time Associated Diagnosis Comments CT [facility] OUTSIDE IMAGES 10/12/2024 4:50 PM EDT documented in this encounter Results * CT MSK OUTSIDE IMAGES (10/12/2024 4:50 PM EDT) Anatomical Region Laterality Modality Computed Tomogra phy 10/12/2024 4:50 PM EDT us External Provider IMG CT PROCEDURES Edited Resul t - Final documented in this encounter Visit Diagnoses Not [...] documented as of this encounter Care Teams Freelance Art Director Relationship Specialty Start Date End Date Pcp, No [address] [place] [address] PCP - General Family Medicine 07/26/21 documented as of this encounter
--- OUTSIDE RECORDS SUMMARY | 2024-11-07 08:52 | XMS_ITS | Encounter Summary ---
Author Organization [facility] Address [address] [place] [address] Care Team Providers Care Senior Mainframe Developer Name Role Phone Pcp, No Primary Care Provider Unavailabl e Carole Avila LPN Unavailable Unavailable Reason for Visit * Reason Comments TCM Encounter Details Date Type Department Care Team (Late st Contact Info) Description 10/22/2024 Patient Outreach [facility] [address] [facility] [address], [address] [place] [address] Carole Avila, AIME TCM Social History Tobacco Use Types Packs/Day Years [...] How often do you attend chur or moravian services? Patient unable to answer 05/07/2024 Do you belong to any clubs o r organizations such as roman catholic groups, unions, fraternal or athletic groups, or [...] Never 07/31/2024 How often do you attend roman catholic or moravian serv ices? Never 07/31/2024 Do you belong to any clubs o r organizations such as roman catholic groups, unions, fraternal or athletic groups, or [...] medical care, and heating? Very hard 07/31/2024 [facility] [place] of Occupat ional Health - Occupational Stress [...] any time in the past 12 m [facility], were you homeless or living in a residential (including now)? No 10/22/2024 [facility] Utilities Answer Date Recorded In the [...] drink first t terri in the morning (EYE-JOURNEYMAN GLAZIER) to steady your nerves or to get rid of a hangover? 0 03/16/2022 CAGE Questionnaire Score 0 023 Sex and Gender Information Value Date Recorded Sex Assigned at Not on file Legal Sex Male 7:46 PM EDT Gender Identity Not on file Sexual Orientation Not on file documented as of this encounter Miscellaneous Notes * Progress Notes - Carole Avila LPN - 10/22/2024 9:24 AM EDT Admit Date: 10/12/2024 Discharge Date: 10/17/2024 Hospital Service: [facility] Discharge Diagnosis: End-Stage renal disease needing dialysis 10/22/2024 TCM call # [phone] Patient Reached: Yes Outcome: Spoke with patient for TCM nurse call, patient reports that he is feeling great since discharge, states he goes to dialysis Sunday, , and Sunday, with no complications. Patient denies n/v/d, chills, or fever. Patient endorses that he is eating and drinking well. Patient reviewedmedications with Tcm nurse, confirms he is compliant with all home and discharge medications, denies side effects at this time. SDOH updated, patient denies needs at this time. Patient made aware of upcoming [facility] appointment, plans to attend and denies transportation needs at this time. No other questions, concerns, or complaints voiced. Action: N/A Medication changes: Per Discharge Summary: Increased PPI to bid - Start Lisinopril 20mg daily [facility] appointment: 10/31/2024 @ 3:40pm with Dr. Jfefy Lane Items to address at [facility]: N/A documented in this encounter Plan of Treatment Upcoming Encounters Date Type Department Care Team ([facility] st Contact Info) Description 12/02/2024 2:20 PM EDT Office Visit [place] [facility] [address] [place] [phone] Cory Archer MD [address] [place] [address] 12/30/2024 3:40 PM EST Office Visit [facility] [place] [facility] [address] [facility]. [address] [place] [address] Daniel Parsons MD [address] [place] [phone] 01/13/2025 1:10 PM EST Appointment [facility] [address] [place] [phone] documented as of this encounter Goals Goal [...] documented as of this encounter Care Teams Senior Mainframe Developer Relationship Specialty Start Date End Date Pcp, Sumaya [address] [place] [address] PCP - General Family Medicine 07/26/21 Carole Avila LPN TCM Nurse 10/22/24 documented as of this encounter
--- OUTSIDE RECORDS SUMMARY | 2024-11-07 08:52 | XMS_ITS | Encounter Summary ---
Author Organization [facility] Address [address] [place] [address] Care Team Providers Care Cloth Pattern Maker Name Role Phone Pcp, No Primary Care Provider Unavailabl e Encounter Details Date Type Department Care Team (Latest Contact Info) Description 10/14/2024 Travel Social History Tobacco Use Types Packs/Day [...] answer 05/07/2024 How often do you attend [facility] or congregational services? Patient unable to answer 05/07/2024 Do you belong to any clubs o r organizations such as restorationist groups, unions, fraternal or athletic groups, or [...] Never 07/31/2024 How often do you attend restorationist or congregational serv ices? Never 07/31/2024 Do you belong to any clubs o r organizations such as restorationist groups, unions, fraternal or athletic groups, or [...] medical care, and heating? Very hard 07/31/2024 [facility] of Occupat ional Health - Occupational Stress [...] living in a long-term (including now)? Yes 10/13/2024 [facility] Utilities Answer Date Recorded In the past 12 months has th e [employer], gas, oil, or water [employer] threatened to shut off services in your [...] drink first t terri in the morning (EYE-INSIDE SALES ADMINISTRATOR) to steady your nerves or to get [...] Description 12/02/2024 2:20 PM EDT Office Visit [place] [facility] Medicine [facility] [address], [address] [place] [address] Cory Archer MD [address] [place] [address] 12/30/2024 3:40 PM EST Office Visit [facility] [place] [address] [facility]. [address] [place] [address] Daniel Parsons MD [address] [place] [address] 01/13/2025 1:10 PM EST Appointment [facility] [address] [place] [address] documented as of this encounter Goals Goal [...] documented as of this encounter Care Teams Cloth Pattern Maker Relationship Specialty Start Date End Date Pcp, Sumaya [place] [phone] PCP - General Family Medicine 07/26/21 documented as of this encounter
--- OUTSIDE RECORDS SUMMARY | 2024-11-07 08:52 | XMS_ITS | Encounter Summary ---
Author Organization [facility] Address [address] [place] [address] Care Team Providers Care Aeronautical Engineering Technologist Name Role Phone Pcp, No Primary Care Provider UnavailCarole Tim LPN Unavailable Unavailable Encounter Details Date Type Department Care Team (Late st Contact Info) Description 08/04/2024 Lab Requisition [facility] [address] [place] [address] Popeye Fernando MD [address] [facility] [facility] [address] [place] [phone] Encounter for general adult medical examination without [...] How often do you attend chur or zoroastrian services? Patient unable to answer [...] How often do you attend buddhist or zoroastrian serv ices? Never 07/31/2024 Do [...] medical care, and heating? Very hard 07/31/2024 [facility] - Occupational Stress Questionnaire Answer Date [...] any time in the past 12 m [facility], were you homeless or living in [...] drink first t terri in the morning (EYE-SALES FACILITATOR) to steady your nerves or to get rid of a hangover? 0 03/16/2022 CAGE Questionnaire Score 0 023 Utilities Answer Date Recorded In the past 12 months has e [employer], gas, oil, or water [employer] threatened to shut off services in [...] No 08/06/2024 8:00 PM EDT Yaneth De Santiago RN documented as of this encounter Plan of Treatment Upcoming Encounters Date Type Department Care Team (Late st Contact Info) Description 12/02/2024 2:20 PM EDT Office Visit [place] [facility] [address] [place] [address] Cory Archer MD [address] [place] [address] 12/30/2024 3:40 PM EST Office Visit [facility] [place] [facility] [address] [facility]. [address] [place] [address] Daniel Parsons MD [address] [place] [address] 01/13/2025 1:10 PM EST Appointment [facility] [address] [place] [address] documented as of this encounter Goals Goal Patient Goal Type Associated Problems Recent Progress Patient-Stated? Author Autogenerat ed Goal Care Plan Autogenerated Problem Sergo [place] documented as of this encounter Procedures Procedure Name Priority Date/Time Associated Diagnosis Comments MULTI DRUG RESISTANCE TEST Routine 08/04/2024 5:45 PM EDT Encounter for general adult medical examination without abnormal findings documented in this encounter Results * (ABNORMAL) Multi Drug Resistance Test (08/04/2024 5:45 PM EDT) Culture Methicillin-Resist ant Staphylococcus aureus(AA) 08/06/2024 7:[address] [facility] Comment:Previously isolated, still present in culture. Swab (Nares and Annetta Rectal) 08/04/2024 5:45 PM EDT 08/04/2024 6:[address] [facility] - 08/06/2024 7:10 AM EDT This test was developed and its performance characteristics determined by the [facility]. Although the media is FDA-approved, it is not FDA-approved for all specimen types submitted. The FDA has determined that such clearance or approval is not necessary. This test is used for surveillance purposes. It should not be regarded as investigational or for research. The [facility] is certified under the Clinical Laboratory Improvement Amendments of 1988 (CLIA-88) as qualified to perform high complexity clinical laboratory testing. us Popeye Fernando MD LAB MICROBIOLOGY - GEN ERAL ORDERABLES Final Result [facility] [address] [place] [address] documented in this encounter Visit Diagnoses Diagnosis Encounter for general adult medical examination without abnormal findings documented in this encounter Additional Health Concerns Active Problems Noted Date Diagnosed Date Autogenerated Problem 05/13/2024 Infection Onset Date Last Indicated Resolved Time MRSA 05/06/2024 10/12/2024 COVID-19 Rule-Out 08/17/2024 08/17/2024 08/18/2024 10:49 AM EDT C. difficile Rule-Out 10/12/2024 10/12/20242024 9:54 PM EDT Gastrointestinal Rule-Out 10/12/2024 10/12/2024 9:54 PM EDT Assessment Noted Time A Body Mass Index follow-up plan has been documented for the patient 05/24/2024 1:05 PM EDT documented as of this encounter Care Teams Aeronautical Engineering Technologist Relationship Specialty Start Date End Date Pcp, Sumaya [address] [place] [address] PCP - General Family Medicine 07/26/21 Carole Avila LPN TCM Nurse 10/22/24 documented as of this encounter
--- OUTSIDE RECORDS SUMMARY | 2024-11-07 08:52 | XMS_ITS | Encounter Summary ---
Author Organization [facility] Address [address] [place] [address] Care Team Providers Care Patient Intake Representative Name Role Phone Pcp, No Primary Care Provider Unavailabl e Encounter Details Date Type Department Care Team (Latest Contact Info) Description 10/12/2024 Travel Social History Tobacco Use Types Packs/Day [...] do you attend [facility] or alevism services? Patient unable to answer 05/07/2024 Do you belong to any clubs o r organizations such as jain groups, unions, fraternal or athletic groups, or [...] Never 07/31/2024 How often do you attend jain or alevism serv ices? Never 07/31/2024 Do you belong to any clubs o r organizations such as jain groups, unions, fraternal or athletic groups, or [...] medical care, and heating? Very hard 07/31/2024 [facility] of Occupat ional Health - Occupational Stress [...] were you homeless or living in a correction (including now)? Yes 10/13/2024 [facility] Utilities Answer Date Recorded In the past 12 months has th e [employer], gas, oil, or water [employer] threatened to shut off services in your [...] drink first t terri in the morning (EYE-DIRECTOR OF BUSINESS SYSTEMS) to steady your nerves or to get [...] Date of Assessment Author No Risk Indicated 10/12/2024 10:00 PM EDT Geraldine Nails se, RN * Question Answer Date of Assessment Author 1. Wish to be (Past 1 Month) No 10/12/2024 10:00 PM EDT Juan M Moreno, CAMILO 2. Non-Specific Active Suicidal Thoughts (Past 1 Month) No 10/12/2024 10:00 PM EDT Juan M Moreno, CAMILO 6. Suicidal Behavior (Lifetime) No 10/12/2024 10:00 PM EDT Juan M Moreno RN documented as of this encounter Plan of Treatment Upcoming Encounters Date Type Department Care Team (Late st Contact Info) Description 12/02/2024 2:20 PM EDT Office Visit [facility] [address] [place] [address] Cory Archer MD [address] [place] [address] 12/30/2024 3:40 PM EST Office Visit [facility] [place] [facility] [address] [facility]. [address] [place] [address] Daniel Parsons MD [address] [place] [phone] 01/13/2025 1:10 PM EST Appointment [facility] [address] [place] [phone] documented as of this encounter Goals Goal [...] documented as of this encounter Care Teams Patient Intake Representative Relationship Specialty Start Date End Date Pcp, No [address] [place] [address] PCP - General Family Medicine 07/26/21 documented as of this encounter
--- OUTSIDE RECORDS SUMMARY | 2024-11-07 08:52 | XMS_ITS ---
Author Organization [facility] Address [address] [place] [address] Care Team Providers Care Mental Health Orderly Name Role Phone Pcp, No Primary Care Provider UnavailCarole Tim LPN Unavailable Unavailable Transitional Care Management Status:Active (Active) Start date:10/22/2024 Enrollment date:10/22/2024 Enrollment reason:Identified using hospital discharge data Overview This episode type is for outpatient care managers enrolling patients in the [facility] Transitional Care Management program. Case Team Name Relationship Phone Carole Avila LPN(Responsible Staff) TCM Nurse Continued Care and Services Coordination
--- OUTSIDE RECORDS SUMMARY | 2024-11-07 08:52 | XMS_ITS | Encounter Summary ---
Author Organization [facility] Address [address] [place] [address] Care Team Providers Care 8Th Grade Teacher Name Role Phone Pcp, No Primary Care Provider Unavailabl e Encounter Details Date Type Department Care Team (Late st Contact Info) Description 10/12/2024 Orders Only External Location [address] [place] [address] Provider, External Social History Tobacco Use Types [...] answer 05/07/2024 How often do you attend [facility] or yarsanism services? Patient unable to answer 05/07/2024 Do you belong to any clubs o r organizations such as judaism groups, unions, fraternal or athletic groups, or [...] Never 07/31/2024 How often do you attend judaism or yarsanism serv ices? Never 07/31/2024 Do you belong to any clubs o r organizations such as judaism groups, unions, fraternal or athletic groups, or [...] care, and heating? Very hard 07/31/2024 [facility] [place] of Occupat ional [facility] - Occupational Stress Questionnaire Answer Date [...] any time in the past 12 m [facility], were you homeless or living in a custodial (including now)? Yes 10/13/2024 [facility] Utilities Answer Date Recorded In the [...] drink first t terri in the morning (EYE-STRINGED INSTRUMENT TUNER) to steady your nerves or to get [...] Visit [facility] [address] [place] [address] Cory Archer MD [address] [place] [address] 12/30/2024 3:40 PM EST Office Visit [facility] [place] [facility] [address] [facility]. [address] [place] [address] Daniel Parsons MD [address] [place] [phone] 01/13/2025 1:10 PM EST Appointment [facility] [address] [place] [address] documented as of this encounter Goals Goal Patient Goal Type Associated Problems Recent Progress Patient-Stated? Author Autogenerat ed Goal Care Plan Autogenerated Problem No Sergo Pedroza Autogenerat ed Goal Care Plan Autogenerated Problem No Leisa Anaya RN documented as of this encounter Procedures Procedure Name Priority Date/Time Associated Diagnosis Comments CT THORACIC OUTSIDE IMAGES 10/12/2024 4:50 PM EDT documented in this encounter Results * CT THORACIC OUTSIDE IMAGES (10/12/2024 4:50 [...] documented as of this encounter Care Teams 8Th Grade Teacher Relationship Specialty Start Date End Date Pcp, No [address] [place] [address] PCP - General Family Medicine 07/26/21 documented as of this encounter
--- OUTSIDE RECORDS SUMMARY | 2024-11-07 08:52 | XMS_ITS | Encounter Summary ---
Author Organization [facility] Address [address] [place] [address] Care Team Providers Care Passenger Rate Clerk Name Role Phone Pcp, No Primary Care Provider Unavailabl e Encounter Details Date Type Department Care Team (Latest Contact Info) Description 10/16/2024 Travel Social History Tobacco Use Types Packs/Day [...] How often do you attend [facility] or worship services? Patient unable to answer 05/07/2024 Do you belong to any clubs o r organizations such as oriental orthodox groups, unions, fraternal or athletic groups, [...] Never 07/31/2024 How often do you attend oriental orthodox or worship serv ices? Never 07/31/2024 Do you belong to any clubs o r organizations such as oriental orthodox groups, unions, fraternal or athletic groups, [...] medical care, and heating? Very hard 07/31/2024 [facility] of Occupat ional Health - Occupational Stress [...] any time in the past 12 m [facility], were you homeless or living in a fci (including now)? Yes 10/13/2024 [facility] Utilities Answer Date Recorded In the past 12 months has th e [employer], gas, oil, or water [employer] threatened to shut off services in your [...] drink first t terri in the morning (EYE-BOXER OPERATOR) to steady your nerves or to get [...] of Assessment Author No Risk Indicated 10/16/2024 8:00 PM EDT Franklin Fletcher RN * Question Answer Date of Assessment Author 1. Wish to be (Past 1 Month) No 025 8:00 PM EDT Franklin Fletcher RN 2. Non-Specific Active Suici veronica Thoughts (Past 1 Month) No 10/16/2024 8:00 PM EDT Jing Fletcher RN 6. Suicidal Behavior (Lifetime) No 8:00 PM EDT Franklin Fletcher RN documented as of this encounter Plan of Treatment Upcoming Encounters Date Type Department Care Team (Late st Contact Info) Description 12/02/2024 2:20 PM EDT Office Visit [facility] [address] [place] [address] Cory Archer MD [address] [place] [address] 12/30/2024 3:40 PM EST Office Visit [facility] [place] [facility] 800 [facility]. [address] [place] [address] Daniel Parsons MD [address] [place] [address] 01/13/2025 1:10 PM EST Appointment [facility] [address] [place] [phone] documented as of this encounter Goals Goal [...] documented as of this encounter Care Teams Passenger Rate Clerk Relationship Specialty Start Date End Date Pcp, No [address] [place] [address] PCP - General Family Medicine 07/26/21 documented as of this encounter
--- OUTSIDE RECORDS SUMMARY | 2024-11-07 08:52 | XMS_ITS | Encounter Summary ---
Author Organization [facility] Address [address] [place] [address] Care Team Providers Care Military Communications Specialist Name Role Phone Pcp, No Primary Care Provider Unavailabl e Encounter Details Date Type Department Care Team (Late st Contact Info) Description 10/14/2024 Patient Outreach [facility] Medicine Specialties [address] [place] [address] Deirdre Gandara Social History Tobacco Use Types [...] you attend [facility] or roman catholic services? Patient unable to answer 05/07/2024 Do you belong to any clubs o r organizations such as zoroastrian groups, unions, fraternal or athletic groups, or [...] Never 07/31/2024 How often do you attend zoroastrian or roman catholic serv ices? Never 07/31/2024 Do you belong to any clubs o r organizations such as zoroastrian groups, unions, fraternal or athletic groups, or [...] medical care, and heating? Very hard 07/31/2024 [facility] of Occupat ional Health - Occupational Stress [...] time in the past 12 m [facility], were you homeless or living in a snf (including now)? Yes 10/13/2024 [facility] Utilities Answer Date Recorded [...] drink first t terri in the morning (EYE-INVESTIGATOR INTERNAL REVENUE) to steady your nerves or to get rid of a hangover? 0 03/16/2022 CAGE Questionnaire Score 0 023 Sex and Gender Information Value Date Recorded Sex Assigned at Not on file Legal Sex Male 7:46 PM EDT Gender Identity Not on file Sexual Orientation Not on file documented as of this encounter Miscellaneous Notes * Progress Notes - Deirdre Gandara - 10/14/2024 4:48 PM EDT Pts 10/13/24 [facility] appt was cancelled due to pt being hospitalized. LTC team will f/u in 2 weeks and will assist with rescheduling pt if needed. documented in this encounter Plan of Treatment Upcoming Encounters Date Type Department Care Team (Late st Contact Info) Description 12/02/2024 2:20 PM EDT Office Visit [place] [facility] [address] [place] [address] Cory Archer MD [address] [place] [address] 12/30/2024 3:40 PM EST Office Visit [facility] [place] [facility] [address] [facility] [place] [address] Daniel Parsons MD [address] [place] [phone] 01/13/2025 1:10 PM EST Appointment [facility] [address] [place] [phone] documented as of this encounter Goals Goal [...] documented as of this encounter Care Teams Military Communications Specialist Relationship Specialty Start Date End Date Pcp, Sumaya [address] [place] [address] PCP - General Family Medicine 07/26/21 documented as of this encounter
--- OUTSIDE RECORDS SUMMARY | 2024-11-07 08:53 | XMS_ITS | Encounter Summary ---
Author Organization [facility] Address [address] [place] [address] Care Team Providers Care Nautical Instrument Mechanic Name Role Phone Pcp, No Primary Care Provider Unavailabl e Encounter Details Date Type Department Care Team (Late st Contact Info) Description 10/10/[address] [facility] Medicine Specialties [address] [place] [address] Deirdre Gandara Social History Tobacco Use Types [...] How often do you attend [facility] or orthodoxy services? Patient unable to answer 05/07/2024 Do you belong to any clubs o r organizations such as hinduism groups, unions, fraternal or athletic groups, or [...] Never 07/31/2024 How often do you attend hinduism or orthodoxy serv ices? Never 07/31/2024 Do you belong to any clubs o r organizations such as hinduism groups, unions, fraternal or athletic groups, or [...] medical care, and heating? Very hard 07/31/2024 [facility] of Occupat ional Health - Occupational Stress [...] any time in the past 12 m [facility], were you homeless or living [...] drink first t terri in the morning (EYE-OPERATIONS WELDER) to steady your nerves or to get [...] provided [facility] 10/13/24 8am appt reminder on -[id number]. documented in this encounter Plan of Treatment Upcoming Encounters Date Type Department Care Team (Late st Contact Info) Description 12/02/2024 2:20 PM EDT Office Visit [facility] [address] [place] [address] Cory Archer MD [address] [place] [address] 12/30/2024 3:40 PM EST Office Visit [facility] [place] [facility] [address] [facility]. [address] [place] [address] Daniel Parsons MD [address] [place] [address] 01/13/2025 1:10 PM EST Appointment [facility] [address] [place] [address] documented as of this encounter [...] documented as of this encounter Care Teams Nautical Instrument Mechanic Relationship Specialty Start Date End Date Pcp, [place] [address] PCP - General Family Medicine 07/26/21 documented as of this encounter
--- OUTSIDE RECORDS SUMMARY | 2024-11-07 08:53 | XMS_ITS ---
Author Organization [facility] Address [address] [place] [id number] Care Team Providers Care Captain Fire Prevention Bureau Name Role Phone Pcp, No Primary Care Provider Carole Bonner LPN Unavailable Unavailable Hepatitis C Program Status:Active (Active) Start date:03/15/2022 Enrollment date:03/15/2022 Enrollment reason:HCV Continued Care and Services Coordination
--- OUTSIDE RECORDS SUMMARY | 2024-11-07 08:53 | XMS_ITS | Encounter Summary ---
Author Organization [facility] Address [address] [place] [address] Care Team Providers Care X Ray Technologist Name Role Phone Pcp, No Primary Care Provider UnavailAliya Garzon EXTERIOR DESIGNER Unavailable UnavailMichaela Nolan ROOFING LAYER Unavailable Unavailable Carole Avila EXTERIOR DESIGNER Unavailable Unavailable Encounter Details Date Type Department Care Team (Late st Contact Info) Description 04/06/2022 Lab Requisition [facility] [address] [place] [address] Emma Obrien MD [address] [place] [address] Encounter for general adult medical examination without [...] first t terri in the morning (EYE-MANAGER BUSINESS DEVELOPMENT HOSPICE) to steady your nerves or to get [...] Description 12/02/2024 2:20 PM EDT Office Visit [facility] Medicine Specialties [address], [address] [place] [address] Cory Archer MD [address] [place] [address] 12/30/2024 3:40 PM EST Office Visit [facility] [place] [facility] [address] [place] [address] Daniel Parsons MD [address] [place] [address] 01/13/2025 1:10 PM EST Appointment [facility] [address] [place] [address] documented as of this encounter Procedures Procedure Name Priority Date/Time Associated Diagnosis Comments CASSANDRA AURIS SURVEILLANCE BY PCR Routine 04/06/2022 1:18 PM EST Encounter for general adult medical examination without abnormal findings documented in this encounter Results * Cassandra auris Surveillance by PCR (04/06/2022 1:18 PM EST) Cassandra auris PCR Result Not Detected Not Detected 04/10/2022 10:21 AM EST [facility] Swab (Axilla and Groin) 04/06/2022 1:18 PM EST 04/06/2022 1:26 PM EST Narrative [facility] - 04/10/2022 10:21 AM EST This PCR assay was developed and its performance characteristics determined by [facility] as appropriate for clinical purposes. This assay has not been cleared or approved by the FDA, but is performed in a CLIA regulated laboratory that is qualified to perform high-complexity testing. This PCR assay was developed and its performance characteristics determined by [facility] as appropriate for clinical purposes. This assay has not been cleared or approved by the FDA, but is performed in a CLIA regulated laboratory that is qualified to perform high-complexity testing. us Emma Luz MD LAB MICROBIOLOGY - GENERAL ORDERABLES Final Result [facility] [address] [place] [address] documented in this encounter Visit Diagnoses Diagnosis Encounter for general adult medical examination without abnormal findings documented in this encounter Additional Health Concerns Infection Onset Date Last Indicated Resolved Time COVID-19 Rule-Out 05/06/2024 05/06/2024 05/07/2024 11:00 AM EDT Respiratory Rule-Out 05/06/2024 05/06/2024 025 2:09 AM EDT MRSA 05/06/2024 10/12/2024 Mycoplasma Pneumonia 05/06/2024 05/06/2024 025 10:07 AM EDT Gastrointestinal Rule-Out 07/30/2024 07/30/2024 12:04 AM EDT COVID-19 Rule-Out 08/17/2024 08/17/2024 08/18/2024 10:49 AM EDT C. difficile Rule-Out 10/12/2024 10/12/20242024 9:54 PM EDT Gastrointestinal Rule-Out 10/12/2024 10/12/2024 9:54 PM EDT documented as of this encounter Care Teams X Ray Technologist Relationship Specialty Start Date End Date Pcp, No [address] [place] [address] PCP - General Family Medicine 07/26/21 Aliya Grimaldo LPN VALUE-BASED TRANSFORMATION PROGRAM TCM Nurse Internal Medicine 04/25/22 05/25/22 Michaela Babb, [place] [address] Founder Ceo & President Live In Housekeeper Nanny 03/15/22 05/21/24 Carole Avila LPN TCM Nurse 10/22/24 documented as of this encounter
--- OUTSIDE RECORDS SUMMARY | 2024-11-07 08:53 | XMS_ITS | Encounter Summary ---
Author Organization [facility] Address [address] [place] [address] Care Team Providers Care Medical Dir Name Role Phone Pcp, No Primary Care Provider Unavailabl e Encounter Details Date Type Department Care Team (Late st Contact Info) Description 09/30/2024 Patient Outreach [facility] [address] [place] [address] Tracee Negrete Social History Tobacco Use Types [...] 05/07/2024 How often do you attend [facility] or synagogue services? Patient unable to answer 05/07/2024 Do you belong to any clubs o r organizations such as gnosticist groups, unions, fraternal or athletic groups, or [...] Never 07/31/2024 How often do you attend gnosticist or synagogue serv ices? Never 07/31/2024 Do you belong to any clubs o r organizations such as gnosticist groups, unions, fraternal or athletic groups, or [...] and heating? Very hard 07/31/2024 [facility] [place] of Occupat ional Health - Occupational Stress [...] drink first t terri in the morning (EYE-ENGRAVER WOOD) to steady your nerves or to get [...] Tracee Negrete - 09/30/2024 4:24 PM EDT [facility] moved pt. appointment to 10/13/2024 @ 8:00am. [facility]TC scheduled next f/u attempt for 10/10/2024 to call/text pt. FE appointment reminder. documented in this encounter Plan of Treatment Upcoming Encounters Date Type Department Care Team (Late st Contact Info) Description 12/02/2024 2:20 PM EDT Office Visit [facility] [address] [place] [phone] Cory Archer MD [address] [place] [address] 12/30/2024 3:40 PM EST Office Visit [facility] [place] [facility] 800 [facility]. [address] [place] [address] Daniel Parsons MD [address] [place] [address] 01/13/2025 1:10 PM EST Appointment [facility] [address] [place] [address] documented as of this encounter Goals Goal [...] as of this encounter Care Teams Medical Dir Relationship Specialty Start Date End Date Pcp, No [address] [place] [address] PCP - General Family Medicine 07/26/21 documented as of this encounter
[2024-11-07] MEDS: 0.9 % SODIUM CHLORIDE 50 ML 100 ML IV (10:44)
[2024-11-07 10:48] VITALS: BP 130/95; PULSE 96; RESP 16; O2SAT 100
[2024-11-07] MEDS: ALBUMIN HUMAN 12.5 GM/50 ML BAG IV ×6 (10:48→13:18)
[2024-11-07 13:48] VITALS: BP 141/83; PULSE 86; RESP 15
== END 2024-11-07 23:59 | disposition home or self-care (01) ==
LOC: RAD 08:50 → INF 10:35
PROVIDERS: PCP Internal Medicine Nephrology; Visit Provider Internal Medicine Nephrology
DX: R18.8 Other ascites (principal)
CPT/HCPCS: 49083; 96365; 96366; P9047

== ENCOUNTER 2024-11-26 19:39 | Emergency (ER) | payer OTHER, SELFPAY ==
--- OUTSIDE RECORDS SUMMARY | 2024-10-14 14:30 | XMS_ITS | Encounter Summary ---
Author Organization Healthcare Address [address] [place] [address] Care Team Providers Care Research Worker Kitchen Name Role Phone Pcp, No Primary Care Provider Unavailabl e Reason for Visit * Auth/Cert (Routine) Specialty Diagnoses / Procedures Referred By Contac t Referred To Contact Diagnoses End-stage renal disease needing dialysis ([facility]/HCC) Free air in [facility] Nash Robins MD [address] [place] [address] Phone: tel: fax: [facility] S Inpatient [address] [place] [address] Phone: tel: Referral ID Status Reason Start Date Expiration Date Visits Re quested Visits Authorized [id number] 1 1 Encounter Details Date Type Department Care Team (Late st Contact Info) Description 10/14/2024 2:30 PM EDT Anesthesia Event [facility] Endoscopy [address] [place] [address] Kayden Gloria MD [address] [place] [address] Anesthesia Record Procedure Summary Procedure [...] you attend [facility] or evangelical services? Patient unable to answer 05/07/2024 Do you belong to any clubs o r organizations such as anabaptist groups, unions, fraternal or athletic groups, or [...] Never 07/31/2024 How often do you attend anabaptist or evangelical serv ices? Never 07/31/2024 Do you belong to any clubs o r organizations such as anabaptist groups, unions, fraternal or athletic groups, or [...] medical care, and heating? Very hard 07/31/2024 [facility] - Occupational Stress Questionnaire [...] any time in the past 12 m [facility], were you homeless or living in a usp (including now)? Yes 10/13/2024 [facility] Utilities Answer Date Recorded In the [...] drink first t terri in the morning (EYE-TAXI DANCER) to steady your nerves or to get [...] Results Component Value Date PHART 7.40 08/03/2024 [id number] 31 (L) 08/03/2024 PO2ART 159 (H) 08/03/2024 SO2ART 99 (H) 08/03/2024 BEART -5.0 (L) 08/03/2024 [id number] 25 08/04/2024 HCTART 23.0 (L) 08/03/2024 SODIUMART 135 (L) 08/03/2024 POTASSIUMART 3.9 08/03/2024 POCTCL 104 08/03/2024 POCGLU 103 (H) 08/03/2024 IONCALART 4.0 (L) 08/03/2024 LACTATE 0.7 08/04/2024 Lab Results Component Value Date PH 7.39 08/04/2024 PCO2 41 08/04/2024 PO2 141 (H) 08/04/2024 [id number] 100 (H) 08/04/2024 BASEEXC -0.4 08/04/2024 HCTSYR [...] is no recent study available for direct qvsv-wm-crup comparison. No echocardiographic abnormalities. Normal cardiac structures [...] systolic function. PFTs No results found for: HGH9BUY , SFK8RRYK , DLT2IEE , FVCPRED BP Readings from Last 5 [...] Plan ASA 4 Plan was reviewed with: CARD CLOTHIER Anesthesia technique(s) discussed with the patient/family: general [...] Description 12/02/2024 2:20 PM EDT Office Visit [facility] [address] [place] [phone] Cory Archer MD [address] [place] [address] 12/30/2024 3:40 PM EST Office Visit [facility] [place] [facility] [address] [facility]. [address] [place] [address] Daniel Parsons MD [address] [place] [address] 01/13/2025 1:10 PM EST Appointment [facility] [address] [place] [address] Shaq Choi MD [address] [place] [address] documented as of this encounter Goals Goal Patient Goal Type Associated Problems Recent Progress Patient-Stated? Author Autogenerat ed Goal Care Plan Autogenerated Problem No Sergo Pedroza Autogenerat ed Goal Care Plan Autogenerated Problem No Leisa Anaya, RN Autogenerat ed Goal Care Plan Autogenerated Problem No Kai Ying, CAMILO documented as of this encounter Visit Diagnoses [...] 10 mg/mL Intravenous, Continuous PRN, Starting on e 10/14/24 at 1437, Until Sun10/14/24 at 1453, Routine New Bag 10/14/2024 2:37 PM EDT 300 mcg/kg/min 116.46 mL/hr propofol (Diprivan) injection Intravenous, As needed, Starting on e 10/14/24 at 1437, Until Sun10/14/24 at 1453, Routine, Anesthesia Intraprocedure Given 10/14/2024 2:37 PM EDT 60 mg sodium chloride 0.9 % infusion Intravenous, Continuous PRN, Starting on e 10/14/24 at 1430, Until Sun10/14/24 at 1453, Routine New Bag 10/14/2024 2:30 PM EDT documented in this encounter Additional Health Concerns Active Problems Noted Date Diagnosed Date Autogenerated Problem 05/13/2024 Autogenerated Problem 08/05/2024 Autogenerated Problem 10/14/2024 Infection Onset Date Last Indicated Resolved Time MRSA 05/06/2024 10/12/2024 C. difficile Rule-Out 10/12/2024 10/12/20242024 9:54 PM EDT Gastrointestinal Rule-Out 10/12/2024 10/12/2024 9:54 PM EDT Assessment Noted Time A Body Mass Index follow-up plan has been documented for the patient 10/17/2024 12:06 PM EDT documented as of this encounter Care Teams Research Worker Kitchen Relationship Specialty Start Date End Date Pcp, Sumaya [address] [place] [address] PCP - General Family Medicine 07/26/21 documented as of this encounter
[2024-11-26] VITALS (17 sets, daily range): BP systolic 144–195; BP diastolic 95–127; PULSE 103–129; RESP 18–31; TEMP 36.8; O2SAT 95–98; BMI 20.3
--- NOTE | 2024-11-26 19:39 | ECG_ITS ---
APPROVED REPORT Exam: Resting ECG HR:127 bpm ECG Measurements Heart Rate 127 AXES MD 136 P 55 QRSd 91 QRS -15 QT 333 T 60 QTc 408 Conclusion SINUS TACHYCARDIA NONSPECIFIC T-WAVE ABNORMALITY ABNORMAL RHYTHM ECG UNCONFIRMED REPORT Electronically signed by : Christian Marrero, 11/26/2024 23:11:00
--- NOTE | 2024-11-26 19:46 | PC.NURSE ---
Pt states he gets dialysis every Sunday and Sunday and has not missed any appointments. Pt also reports that he smokes marijuana Report given to Deirdre PAGE
--- OUTSIDE RECORDS SUMMARY | 2024-11-26 19:46 | XMS_ITS ---
Author Organization [facility] Address [address] [place] [address] Care Team Providers Care Powerhouse Mechanic Name Role Phone Pcp, No Primary Care Provider Unavailabl e Transitional Care Management Status:Closed (Closed) Start date:10/22/2024 Enrollment date:10/22/2024 Enrollment reason:Identified using hospital discharge data End date:11/21/2024 Close reason:Patient graduated Overview This episode type is for outpatient care managers enrolling patients in the CMS Transitional Care Management program. Continued Care and Services Coordination
--- OUTSIDE RECORDS SUMMARY | 2024-11-26 19:47 | XMS_ITS | Encounter Summary ---
Author Organization [facility] Address [address] [place] [address] Care Team Providers Care Inside Account Executive Name Role Phone Pcp, No Primary Care [...] answer 05/07/2024 How often do you attend [facility] or anabaptism services? Patient unable to answer 05/07/2024 Do you belong to any clubs o r organizations such as sabianism groups, unions, fraternal or athletic groups, or [...] Never 07/31/2024 How often do you attend sabianism or anabaptism serv ices? Never 07/31/2024 Do you belong to any clubs o r organizations such as sabianism groups, unions, fraternal or athletic groups, or [...] medical care, and heating? Very hard 07/31/2024 [facility] of Occupat ional Health - Occupational [...] living in a assisted (including now)? Yes 10/13/2024 [facility] Utilities Answer Date Recorded In the past 12 months has th e [employer], gas, oil, or water [employer] threatened to shut off services in your [...] drink first t terri in the morning (EYE-LANDSCAPE GARDENER) to steady your nerves or to get [...] Description 12/02/2024 2:20 PM EDT Office Visit [facility] [address] [place] [address] Cory Archer MD [address] [place] [address] 12/30/2024 3:40 PM EST Office Visit [facility] [place] [facility] [address] [facility] [place] [address] Daniel Parsons MD [address] [place] [address] 01/13/2025 1:10 PM EST Appointment [facility] [address] [place] [address] Shaq Choi MD [address] [place] [address] documented as of this encounter Goals Goal Patient Goal Type Associated Problems Recent Progress Patient-Stated? Author Autogenerat ed Goal Care Plan Autogenerated Problem No Sergo Pedroza Autogenerat ed Goal Care Plan Autogenerated Problem No Leisa Anaya RN Autogenerat ed Goal Care Plan Autogenerated [...] documented as of this encounter Care Teams Inside Account Executive Relationship Specialty Start Date End Date Pcp, No [address] [place] [address] PCP - General Family Medicine 07/26/21 documented as of this encounter
--- OUTSIDE RECORDS SUMMARY | 2024-11-26 19:47 | XMS_ITS | Encounter Summary ---
Author Organization Healthcare Address [address] [place] [address] Care Team Providers Care Joinery Machinist Name Role Phone Pcp, No Primary Care Provider Carole Bonner LPN Unavailable Unavailable Encounter Details Date Type Department Care Team (Late st Contact Info) Description 10/28/2024 [facility] Outreach [facility] [address] [place] [address] Tracee Negrete Social History Tobacco Use Types [...] How often do you attend chur or episcopalian services? Patient unable to answer 05/07/2024 Do you belong to any clubs o r organizations such as mu-ism groups, unions, fraternal or athletic groups, or [...] Never 07/31/2024 How often do you attend mu-ism or episcopalian serv ices? Never 07/31/2024 Do you belong to any clubs o r organizations such as mu-ism groups, unions, fraternal or athletic groups, or [...] and heating? Very hard 07/31/2024 [facility] Occupat ional Health - Occupational Stress [...] or living in a mcc (including now)? No 10/22/2024 [facility] Utilities Answer Date Recorded In [...] drink first t terri in the morning (EYE-MENDING CARRIER) to steady your nerves or to get [...] EDT Contact attempt: Attempt 3 since beginning [employer] workflow. SW is attempting to connect pt to HCV care. Pt was found to have HCV RNA+ result in previous lab history. Outcome of contact attempt is Left a Message In need of 10/13/2024 [facility] [place] reschedule. Pt. was inpatient at the time of that appointment.No primary contact information. [phone], [phone], [phone] sent text message to all relative listedin pt. chart. Received a call back from Kike [phone] and he reports that he has not [...] Description 12/02/2024 2:20 PM EDT Office Visit [facility] Medicine Specialties [address] [place] [address] Cory Archer MD [address] [place] [address] 12/30/2024 3:40 PM EST Office Visit [facility] [address] [place] [address] Daniel Parsons MD [address] [place] [address] 01/13/2025 1:10 PM EST Appointment [facility] [address] [place] [address] Shaq Choi MD [address] [place] [address] documented as of this encounter [...] documented as of this encounter Care Teams Joinery Machinist Relationship Specialty Start Date End Date Pcp, [place] [address] [place] [address] PCP - General Family Medicine 07/26/21 Carole Avila LPN TCM Nurse 10/22/24 11/21/24 documented as of this encounter
--- OUTSIDE RECORDS SUMMARY | 2024-11-26 19:47 | XMS_ITS | Encounter Summary ---
Author Organization [facility] Address [address] [place] [address] Care Team Providers Care Astronautical Engineer Name Role Phone Pcp, No Primary Care [...] How often do you attend [facility] or muslim services? Patient unable to answer 05/07/2024 Do [...] How often do you attend anabaptism or muslim serv ices? Never 07/31/2024 Do you belong [...] medical care, and heating? Very hard 07/31/2024 [facility] Occupat ional Health - [...] any time in the past 12 m [facility], were you homeless or living in a usp (including now)? 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 [place] [address] Daniel Parsons MD [address] [place] [address] 01/13/2025 1:10 PM EST Appointment [facility] [address] [place] [address] Shaq Choi MD [address] [place] [address] documented as of this encounter [...] documented as of this encounter Care Teams Astronautical Engineer Relationship Specialty Start Date End Date Pcp, No [address] [place] [address] PCP - General Family Medicine 07/26/21 documented as of this encounter
--- OUTSIDE RECORDS SUMMARY | 2024-11-26 19:47 | XMS_ITS | Encounter Summary ---
Author Organization [facility] Address [address] [place] [address] Care Team Providers Care Parimutuel Ticket Checker Name Role Phone Pcp, No Primary Care Provider Unavailabl e Carole Avila LPN Unavailable Unavailable Reason for Visit * Reason Comments TCM Encounter Details Date Type Department Care Team (Late st Contact Info) Description 10/22/2024 Patient Outreach [facility] [address] [facility] [address] [place] [address] Carole Avila, AIME TCM Social History Tobacco [...] How often do you attend chur or christian services? Patient unable to answer 05/07/2024 Do [...] How often do you attend anglican or christian serv ices? Never 07/31/2024 Do you belong [...] medical care, and heating? Very hard 07/31/2024 [facility] [place] [facility] of Occupat ional Health - Occupational Stress [...] any time in the past 12 [facility], were you homeless or living in a intermediate (including now)? 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 Jeffy Lane Items to address at [facility]: N/A documented in this encounter Plan of Treatment Upcoming Encounters Date Type Department Care Team ([facility] st Contact Info) Description 12/02/2024 2:20 PM EDT Office Visit [facility] [address] [place] [address] Cory Archer MD [address] [place] [address] 12/30/2024 3:40 PM EST Office Visit [facility] [address] [place] [address] Daniel Parsons MD [address] [place] [address] 01/13/2025 1:10 PM EST Appointment [facility] [address] [place] [address] Shaq Choi MD [address] [place] [address] documented as of this encounter [...] documented as of this encounter Care Teams Parimutuel Ticket Checker Relationship Specialty Start Date End Date Pcp, No [address] [place] [address] PCP - General Family Medicine 07/26/21 Carole Avila LPN TCM Nurse 10/22/24 11/21/24 documented as of this encounter
--- OUTSIDE RECORDS SUMMARY | 2024-11-26 19:47 | XMS_ITS | Clinical Summary ---
Author Organization Healthcare Address [address] [place] [address] Care Team Providers Care Extras Casting Director Name Role Phone Pcp, No Primary [...] times a day. 60 tablet 1 5 Active naloxone (Narcan) 4 mg/0.1 mL nasal spray 1. Give 1 spray in nostril for no/slow breathing or cannot wake after opioid use 2. Call 911 3. Repeat in other nostril if symptoms continue Call 911. Give 4 mg (1 spray) into one nostril. Repeat every 2-3 minutes as needed, alternating nostrils, until medical assistance arrives. 1 each 5 026 Active buprenorphine (Subutex) [address] 2 tablets under the tongue daily. 5 Active sevelamer carbonate (Renvela) 800 MG tabletIndicati ons:ESRD on Dialysis Take 2 tablets by mouth 3 times a day with meals. Swallow tablet whole; do not crush, break, or chew. 5 Active traZODone (Desyrel) 50 MG tablet Take 1 tablet by mouth nightly. 30 tablet 5 Active lisinopril 20 MG tablet Take 1 tablet by mouth daily. 30 tablet Active pantoprazole (Protonix) 40 MG EC tablet Take 1 tablet by mouth 2 times a day. Do not crush, chew, or split. 60 tablet 1 5 025 lisinopril 20 MG tablet Take 1 tablet by mouth daily. 30 tablet 5 025 Discontinu ed(Reorder ) Active Problems Problem Noted Date Diagnosed Date [...] organization. Date Type Department Care Team Description 11/22/2024 Orders Only [facility] Nephrology, Bone & Mineral Metabolism [address] [facility] [address] [facility], [address] [place] [address] Emery Dewitt MD 11/07/2024 Telephone [facility] Nephrology, Bone & Mineral Metabolism [address] [facility] [address], [address] [place] [address] Emery Dewitt MD 11/07/2024 Telephone [facility] Medicine Specialties [address] [place] [address] Rehana Ross, RN 10/28/2024 Patient Outreach [facility] Medicine Specialties [address] [place] [address] Tracee Negrete 10/22/2024 Patient Outreach [facility] [address], [address] [place] [address] Carole Avila LPN TCM 10/16/2024 Travel 10/15/2024 Travel 10/14/2024 2:30 PM EDT Anesthesia Event [facility] [address] [place] [address] Kayden Gloria MD 10/14/2024 Patient Outreach [facility] Medicine Specialties [address], [address] [place] [address] Deirdre Gandara 10/14/2024 Travel 10/13/2024 Travel 10/12/2024 Travel 10/12/2024 Orders Only External Location [address] [place] [address] Provider, External 10/12/2024 Orders Only External Location [address] [place] [address] Provider, External 10/10/2024 Patient Outreach [facility] Medicine Specialties [address] [place] [address] Deirdre Gandara 09/30/2024 Patient Outreach [facility] Medicine Specialties [address] [place] [address] Tracee Negrete 09/29/2024 Telephone [facility] Medicine Specialties [address], [address] [place] [address] 09/24/2024 9:32 PM EDT - 09/24/2024 11:03 PM EDT Emergency [facility] Emergency Department [address] [place] [address] ESRD on dialysis ([facility]) (Primary Dx); Chronic anemia Discharge Disposition: Home or Self Care 09/24/2024 Travel 09/24/2024 Patient Outreach [facility] Medicine Specialties [address] [place] [address] Kalee Cardona 09/18/2024 Telephone [facility] Medicine Specialties [address], [address] [place] [address] Angeles Carvalho RN 09/17/2024 Orders Only External Location [address] [place] [address] Deirdre Hou 09/17/2024 Patient Outreach [facility] Medicine Specialties [address] [place] [address] Deirdre Gandara 09/10/2024 Travel 09/09/2024 Orders Only [facility] Nephrology, Bone & Mineral Metabolism [address] [facility] [address] [facility], [address] [place] [address] Rosie Charlton MD ESRD (end stage renal disease) ([facility]) (Primary Dx) 09/09/2024 Orders Only [facility] Nephrology, Bone & Mineral Metabolism [address] [facility] [address], [address] [place] [address] Rosie Charlton MD ESRD (end stage renal disease) ([facility]) (Primary Dx) 09/06/2024 Travel 09/05/2024 11:15 AM EDT Office Visit [facility] Adult Dentistry [address] [place] [address] Allie Kong DDS Pain (Primary Dx) 09/05/2024 Travel 09/04/2024 Travel 09/03/2024 Patient Outreach [facility] Medicine Specialties [address] [place] [address] Kalee Cardona 09/02/2024 Travel 08/30/2024 Travel 08/29/2024 Travel 08/28/2024 Travel 08/26/2024 Travel from Last 3 Months Social History [...] answer 05/07/2024 How often do you attend [facility] or mormonism services? Patient unable to [...] How often do you attend nondenominational or mormonism serv ices? Never 07/31/2024 Do [...] medical care, and heating? Very hard 07/31/2024 [facility] - Occupational [...] any time in the past 12 m [facility], were you homeless or living in a intermediate (including now)? No 10/22/2024 [facility] Utilities Answer Date Recorded In [...] first t terri in the morning (EYE-MANAGER ORDER) to steady your nerves or to get [...] Visit [facility] [address] [place] [address] Cory Archer MD [address] [place] [address] 12/30/2024 3:40 PM EST Office Visit [facility] [place] [facility] [address] [facility] [place] [address] Daniel Parsons MD [address] [place] [address] 01/13/2025 1:10 PM EST Appointment [facility] [address] [place] [address] Shaq Choi MD [address] [place] [phone] Health Maintenance Due Date Last Done Comments Dental Oral Exam 1982 Dental Prophylaxis 1982 Dental X-Ray: Bitewings 1982 Dental X-Ray: Full Mouth 1982 [facility]-Depression Screening 1982 [facility]-Infant/Child/Adol SDOH Screenings 1982 [facility]-Varicella Vaccines (1 of [...] Vaccines (1 - 3-dose SCDM series) 2009 [id number] Vaccine (1 - season) 2024 [facility]-Influenza Vaccine [...] Plan Autogenerated Problem No Leisa Anaya, RN Autogenera elle Goal Care Plan Autogenerated Problem No Kai Ying RN Autogenera elle Goal Care Plan Autogenerated Problem No Yasemin Bravo Procedures Procedure Name Priority Date/Time Associated Diagnosis Comments POCT GLUCOSE METER UNSOLICITED RESULTS Routine 10/16/2024 7:48 PM EDT POCT GLUCOSE METER UNSOLICITED RESULTS Routine 10/16/2024 6:06 PM EDT PHOSPHORUS, PLASMA Add-On 10/16/2024 9: 10 AM EDT ACUTE HEPATITIS PANEL Pending Discharge 10/16/2024 9:10 AM EDT ESRD (end stage renal disease) (CMS/HCC) HEPATITIS B SURFACE ANTIBODY, QUANTITATIVE Pending Discharge 10/16/2024 9:10 AM EDT ESRD (end stage renal disease) ([facility]) COMPREHENSIVE METABOLIC PANEL, PLASMA Routine 10/16/2024 9:10 AM EDT CBC WITH AUTO DIFFERENTIAL Routine 10/16/2024 9:10 AM EDT HEMODIALYSIS INPATIENT Routine 10/16/2024 8:33 AM EDT ESRD (end stage renal disease) ([facility]) POCT GLUCOSE METER UNSOLICITED RESULTS Routine 10/15/2024 9:14 PM EDT HEPATIC FUNCTION PANEL Add-On 10/15/2024 5:46 PM EDT IONIZED CALCIUM, WHOLE BLOOD [...] Duodenal ulcer Esophagitis SURGICAL PATHOLOGY EXAM Routine 10/14/2024 2:43 PM EDT Opioid use disorder, severe, [...] 10/14/2024 12:14 PM EDT HEMODIALYSIS INPATIENT Routine 10/14/2024 7:25 AM EDT POCT GLUCOSE METER UNSOLICITED RESULTS Routine 10/14/2024 5:55 AM EDT THC URINE CONFIRM Routine 10/14/2024 3:1 2 AM EDT URINALYSIS MICROSCOPIC FOR UA REFLEX [...] 3:10 AM EDT PHOSPHORUS, PLASMA Routine 10/14/2024 3: 10 AM EDT MAGNESIUM, PLASMA Routine 10/14/2024 3:1 0 AM EDT POCT GLUCOSE METER UNSOLICITED RESULTS [...] 10/13/2024 4:18 PM EDT Decompensated cirrhosis (CMS/HCC) WA ABDOM PARACENTESIS DX/THER W IMAGING GUIDANCE Routine 10/13/2024 4:18 PM EDT Decompensated cirrhosis (CMS/HCC) BLOOD GAS PANEL, VENOUS Routine 10/13/2024 3:05 PM EDT LACTATE, VENOUS Routine 10/13/2024 3:05 PM EDT CBC W/O DIFFERENTIAL STAT 10/13/2024 3:05 PM EDT POCT GLUCOSE METER UNSOLICITED RESULTS Routine 10/13/2024 2:01 PM EDT WA CRITICAL CARE, E/M 30-74 MINUTES Routine 10/13/2024 12:37 PM EDT ESRD (end stage renal disease) (CMS/HCC) Decompensated cirrhosis (CMS/HCC) Other ascites Heart failure, systolic, with acute decompensation (CMS/HCC) Atrial flutter with rapid ventricular response (CMS/HCC) POCT GLUCOSE METER UNSOLICITED RESULTS Routine 10/13/2024 11:56 AM EDT HEPATIC FUNCTION PANEL Add-On 10/13/2024 11:34 AM EDT SERUM DRUG SCREEN Routine [...] 10/13/2024 4:29 AM EDT HEMODIALYSIS INPATIENT Routine 10/13/2024 2:01 AM EDT XR CHEST 1 VIEW Routine 10/13/2024 1:13 AM EDT BETA HYDROXYBUTYRIC ACID Add-On 10/12/2024 11:40 PM EDT PHOSPHORUS, PLASMA Routine 10/12/2024 11:40 PM EDT MAGNESIUM, PLASMA Routine 10/12/2024 11:40 PM EDT IONIZED CALCIUM, SERUM Routine 10/12/2024 11:40 PM EDT CBC W/O DIFFERENTIAL Routine [...] 9:00 PM EDT ETHYLENE GLYCOL, PLASMA Routine 10/12/2024 9:00 PM EDT CORTISOL Routine 10/12/2024 9:00 PM EDT ALCOHOL PROFILE, PLASMA Routine 10/12/2024 9:00 PM EDT WA CRITICAL CARE, E/M 30-74 MINUTES Routine 10/12/2024 [...] 7:24 PM EDT PREALBUMIN, PLASMA Add-On 10/12/2024 7: 24 PM EDT N-TERMINAL PROBNP, PLASMA Add-On 10/12/2024 7:24 PM EDT ACETAMINOPHEN, QUANTATATIVE, PLASMA Add-On 10/12/2024 7:24 PM EDT HEMOGLOBIN A1C Add-On 10/12/2024 7:24 PM EDT TYPE AND SCREEN STAT 10/12/2024 7:24 PM EDT AMMONIA, PLASMA STAT 10/12/2024 7:24 PM EDT PHOSPHORUS, PLASMA STAT 10/12/2024 7: 24 PM EDT LIPASE, PLASMA STAT 10/12/2024 7:24 PM EDT N-TERMINAL PROBNP, PLASMA STAT 10/12/2024 7:24 PM EDT TROPONIN T, HIGH SENSITIVITY, 0 HOUR, PLASMA, REFLEX TO 2 HOUR STAT 10/12/2024 7:24 PM EDT BLOOD GAS PANEL, VENOUS STAT 10/12/2024 7:24 PM EDT MAGNESIUM, PLASMA STAT 10/12/2024 7:2 4 PM EDT PROTHROMBIN TIME(PT) / INR STAT 10/12/2024 7:24 PM EDT COMPREHENSIVE METABOLIC PANEL, PLASMA STAT 10/12/2024 7:24 PM EDT CBC WITH AUTO DIFFERENTIAL STAT 10/12/2024 7:24 PM EDT ECG ADULT STAT 10/12/2024 7:12 PM EDT [facility], E/M 30-74 MINUTES Routine 10/12/2024 [...] 8:[address] OUTSIDE IMAGES 09/17/2024 8:4 9 PM EDT HEPATITIS B CORE TOTAL AB [...] 09/06/2024 2:03 PM EDT HEMODIALYSIS INPATIENT Routine 09/06/2024 1:40 PM EDT ESRD (end stage renal [...] 6:48 AM EDT MAGNESIUM, PLASMA Routine 09/05/2024 6:4 8 AM EDT COMPREHENSIVE METABOLIC PANEL, PLASMA Routine 09/05/2024 6:48 AM EDT CBC W/O DIFFERENTIAL Routine 09/05/2024 6:48 AM EDT C-REACTIVE PROTEIN, PLASMA Timed 09/04/2024 9:17 AM EDT MAGNESIUM, PLASMA Routine 09/04/2024 9:1 7 AM EDT RENAL FUNCTION PANEL, PLASMA Routine 09/04/2024 9:17 AM EDT EXTRA TUBE LAVENDER TOP Routine 09/04/2024 9:05 AM EDT EXTRA TUBES Routine 09/04/2024 9:05 AM EDT HEMODIALYSIS INPATIENT Routine 09/04/2024 9:04 AM EDT ESRD (end stage renal disease) ([facility]) C-REACTIVE PROTEIN, PLASMA Pending Discharge 09/02/2024 8:41 AM EDT MAGNESIUM, PLASMA Pending Discharge 09/02/2024 8:41 AM EDT HEMODIALYSIS INPATIENT Routine 09/02/2024 8:32 AM EDT ESRD (end stage renal disease) ([facility]) HEMODIALYSIS INPATIENT Routine 08/30/2024 7:25 AM EDT ESRD (end stage renal disease) ([facility]) XR PANOREX Routine 08/29/2024 3:26 PM EDT MAGNESIUM, PLASMA Routine 08/29/2024 11:29 AM EDT MAGNESIUM, PLASMA Routine 08/28/2024 8:2 4 AM EDT RENAL FUNCTION PANEL, PLASMA Routine 08/28/2024 8:24 AM EDT CBC W/O DIFFERENTIAL Routine 08/28/2024 8:24 AM EDT C-REACTIVE PROTEIN, PLASMA Timed 08/28/2024 8:24 AM EDT HEMODIALYSIS INPATIENT Routine 08/28/2024 8:05 AM EDT ESRD (end stage renal disease) ([facility]) POTASSIUM, PLASMA Pending Discharge 08/27/2024 9:04 AM EDT PROTHROMBIN TIME(PT) / INR Routine 08/27/2024 4:56 AM EDT PHOSPHORUS, PLASMA Routine 08/27/2024 4: 56 AM EDT MAGNESIUM, PLASMA Routine 08/27/2024 4:5 6 AM EDT COMPREHENSIVE METABOLIC PANEL, PLASMA Routine 08/27/2024 4:56 AM EDT CBC W/O DIFFERENTIAL Routine 08/27/2024 4:56 AM EDT PROTHROMBIN TIME(PT) / INR Routine 08/26/2024 8:45 AM EDT PHOSPHORUS, PLASMA Routine 08/26/2024 8: 45 AM EDT MAGNESIUM, PLASMA Routine 08/26/2024 8:4 5 AM EDT COMPREHENSIVE METABOLIC PANEL, PLASMA Routine 08/26/2024 8:45 AM EDT CBC W/O DIFFERENTIAL Routine 08/26/2024 8:45 AM EDT HEMODIALYSIS INPATIENT Routine 08/26/2024 7:49 AM EDT ESRD (end stage renal disease) ([facility]) HIV 1/2 ANTIBODY/ANTIGEN SCREEN WITH REFLEX TO HIV I/II DIFFERENTIATION Routine 08/01/2024 9:13 AM EDT from Last 3 Months or Most Recently Relevant to Health Maintenance Results * (ABNORMAL) POCT glucose meter (10/16/2024 7:48 PM EDT) Only the most recent of21 resultswithin the time period is included. POCT Glucose 102(H) 74 - 99 mg/dL 10/16/2024 7:50 PM EDT [facility] Comment:Accuracy of a glucos e result [...] for testing. Comment 10/16/2024 7:50 PM EDT [facility] Dioramist ID Berry Melton 7:50 PM EDT [facility] Device ID [id number] 10/16/2024 7:50 PM EDT [facility] Specimen Type POC Capillary 10/16/2024 7:50 PM EDT [facility] Blood Capillary blood specimen / Unknown 10/16/2024 7:48 PM EDT 10/16/2024 7:50 PM EDT us Chandrika Shields MD LAB POINT OF CARE TE ST DOCKED DEVICE UNSOLICITED RESULTS Final Result [facility] [address] [place] [id number] * (ABNORMAL) Hepatitis B Surface Antibody, Quantitative (10/16/2024 9:10 AM EDT) Only the most recent of2 resultswithin the time period is included. Hepatitis B Surface Antibody, Quantitative >1,000.00 (H) NonReacti ve: <8, Grayzone: 8 - <12, Reactive: >= 12 mIU/mL 10/16/2024 12:20 PM EDT [facility] Comment: Reactive. Individual is considered immune to HBV infection. Blood Venous blood specimen / Unknown (Port) Long-term Catheter / Unknown 10/16/2024 9:10 AM EDT 10/16/2024 9:23 AM EDT [employer] LAB BLOOD ORDERABLES Final Result Performing Organization Address City/[facility] Co de Phone Number [facility] [address] [place] [address] * Hepatitis panel, acute (10/16/2024 9:10 AM EDT) Only the most recent of2 resultswithin the time period is included. Pathologist [facility] Hepatitis B Surf Antigen Negative Negative 10/16/2024 12:23 PM EDT [facility] Hepatitis A Antibody IgM Negative Negative 10/16/2024 12:23 PM EDT [facility] Hepatitis B Core Antibody IgM Negative Negative 10/16/2024 12:23 PM EDT [facility] Blood Venous blood specimen / Unknown (Port) Long-term Catheter / Unknown 10/16/2024 9:10 AM EDT 10/16/2024 9:23 AM EDT Narrative [facility] - 10/16/2024 12:23 PM EDT Hepatitis C Antibody previously reported Positive on patient and will not be repeated on this panel. Patient is expected to test positive for Hepatitis C Antibody for the rest of their life. See previous results below: Hepatitis C Antibody Date Value Ref Range Status 03/15/2022 Positive (A) Negative Final [facility] BLOOD ORDERABLES Final Result [facility] [address] [place] [address] * (ABNORMAL) CBC and Differential (10/16/2024 9:10 AM EDT) Only the most recent of3 resultswithin the time period is included. WBC Count 5.83 3.70 - 10.30 10*3/uL LAB HEMATOLOGY METHOD 10/16/2024 9:26 AM EDT [facility] RBC Count 2.90(L) 4.60 - 6.10 10*6/uL LAB HEMATOLOGY METHOD 10/16/2024 9:26 AM EDT [facility] HGB 7.9(L) 13.7 - 17.5 g/dL LAB HEMATOLOGY METHOD 10/16/2024 9:26 AM EDT [facility] HCT 25.8(L) 40.0 - 51.0 % LAB HEMATOLOGY METHOD 10/16/2024 9:26 AM EDT [facility] Platelet Count 185 155 - 369 10*3/uL LAB HEMATOLOGY METHOD 10/16/2024 9:26 AM EDT [facility] MCV 89 79 - 98 fL LAB HEMATOLOGY METHOD 10/16/2024 9:26 AM EDT [facility] MCH 27.2 26.0 - 32.0 pg LAB HEMATOLOGY METHOD 10/16/2024 9:26 AM EDT [facility] MCHC 30.6(L) 30.7 - 35.5 g/dL LAB HEMATOLOGY METHOD 10/16/2024 9:26 AM EDT [facility] RDW 18.0(H) 11.5 - 14.5 % LAB HEMATOLOGY METHOD 10/16/2024 9:26 AM EDT [facility] MPV 9.6 8.8 - 12.5 fL LAB HEMATOLOGY METHOD 10/16/2024 9:26 AM EDT [facility] nRBC 0.0 <=0.0 per 100 WBCs LAB HEMATOLOGY METHOD 10/16/2024 9:26 AM EDT [facility] Differential Type Automated LAB HEMATOLOGY METHOD 10/16/2024 9:26 AM EDT [facility] Neutrophils % 71 % LAB HEMATOLOGY METHOD 10/16/2024 9:26 AM EDT [facility] Lymphocytes % 15 % LAB HEMATOLOGY METHOD 10/16/2024 9:26 AM EDT [facility] Monocytes % 9 % LAB HEMATOLOGY METHOD 10/16/2024 9:26 AM EDT [facility] Eosinophils % 3 % LAB HEMATOLOGY METHOD 10/16/2024 9:26 AM EDT [facility] Basophils % 1 % LAB HEMATOLOGY METHOD 10/16/2024 9:26 AM EDT [facility] Immature Granulocytes % 1 % LAB HEMATOLOGY METHOD 10/16/2024 9:26 AM EDT [facility] Neutrophils Absolute 4.20 1.60 - 6.10 10*3/uL LAB HEMATOLOGY METHOD 10/16/2024 9:26 AM EDT [facility] Lymphocytes Absolute 0.85(L) 1.20 - 3.90 10*3/uL LAB HEMATOLOGY METHOD 10/16/2024 9:26 AM EDT [facility] Monocytes Absolute 0.51 0.30 - 0.90 10*3/uL LAB HEMATOLOGY METHOD 10/16/2024 9:26 AM EDT [facility] Eosinophils Absolute 0.20 0.00 - 0.50 10*3/uL LAB HEMATOLOGY METHOD 10/16/2024 9:26 AM EDT [facility] Basophils Absolute 0.04 0.00 - 0.10 10*3/uL LAB HEMATOLOGY METHOD 10/16/2024 9:26 AM EDT [facility] Immature Granulocytes Absolute 0.03 0.00 - 0.06 10*3/uL LAB HEMATOLOGY METHOD 10/16/2024 9:26 AM EDT [facility] Blood Venous blood specimen / Unknown (Port) Long-term Catheter / Unknown 10/16/2024 9:10 AM EDT 10/16/2024 9:23 AM EDT Narrative [facility] - 10/16/2024 9:26 AM EDT Therapeutic decision making should be based on absolute values, rather than percentages. us Chandrika Shields MD LAB BLOOD ORDERABLES Final Re sult [facility] [address] [place] [id number] * (ABNORMAL) Phosphorus (10/16/2024 9:10 AM EDT) Only the most recent of6 resultswithin the time period is included. Phosphorus, Plasma 7.1(H) 2.5 - 4.5 mg/dL 10/16/2024 12:00 PM EDT [facility] Blood Venous blood specimen / Unknown (Port) Long-term Catheter / Unknown 10/16/2024 9:10 AM EDT 10/16/2024 9:23 AM EDT us Chandrika Shields MD LAB BLOOD ORDERABLES Final Re sult [facility] [address] [place] [id number] * (ABNORMAL) Comprehensive Metabolic Panel, Plasma (10/16/2024 9:10 AM EDT) Only the most recent of8 resultswithin the time period is included. Glucose, Plasma 112(H) 74 - 99 mg/dL 10/16/2024 9:43 AM EDT [facility] BUN, Plasma 46(H) 7 - 21 mg/dL 10/16/2024 9:43 AM EDT [facility] Creatinine, Plasma 5.30(H) 0.70 - 1.20 mg/dL 10/16/2024 9:43 AM EDT [facility] BUN/Creatinine Ratio 9 10/16/2024 9:43 AM EDT [facility] Sodium, Plasma 133(L) 136 - 145 mmol/L 10/16/2024 9:43 AM EDT [facility] Potassium, Plasma 4.3 3.6 - 4.9 mmol/L 10/16/2024 9:43 AM EDT [facility] Chloride, Plasma 96(L) 97 - 107 mmol/L 10/16/2024 9:43 AM EDT [facility] CO2, Plasma 20(L) 22 - 29 mmol/L 10/16/2024 9:43 AM EDT [facility] Anion Gap 17(H) 6 - 16 mmol/L 10/16/2024 9:43 AM EDT [facility] Total Calcium, Plasma 7.2(L) 8.9 - 10.2 mg/dL 10/16/2024 9:43 AM EDT [facility] Total Protein 5.7(L) 6.3 - 7.9 g/dL 10/16/2024 9:43 AM EDT [facility] Albumin, Plasma 2.7(L) 3.5 - 5.2 g/dL 10/16/2024 9:43 AM EDT [facility] AST, Plasma 149(H) 10 - 50 U/L 10/16/2024 9:43 AM EDT [facility] ALT, Plasma 422(H) 10 - 50 U/L 10/16/2024 9:43 AM EDT [facility] Alkaline Phosphatase, Plasma 177(H) 40 - 115 U/L 10/16/2024 9:43 AM EDT [facility] Total Bilirubin, Plasma 0.2 0.2 - 1.1 mg/dL 10/16/2024 9:43 AM EDT [facility] eGFRcr 13.0 mL/min/1.7 3m*2 10/16/2024 9:43 AM EDT [facility] Comment:Reported eGFRcr in m L/min/1.73m2 is based the CKD-EPI 2020 equation that does not use a race coefficient. Blood Venous blood specimen / Unknown (Port) Long-term Catheter / Unknown 10/16/2024 9:10 AM EDT 10/16/2024 9:23 AM EDT Chandrika Shields MD LAB BLOOD ORDERABLES Final Re sult Performing Organization Address City/[facility]/ZIP Co de Phone Number [facility] [address] [place] [address] * (ABNORMAL) Ionized calcium, whole blood (10/15/2024 5:46 PM EDT) Only the most recent of2 resultswithin the time period is included. Ionized Calcium, Whole Blood 4.0(L) 4.6 - 5.1 mg/dL LAB HEMATOLOGY METHOD 10/15/2024 4:44 PM EDT [facility] Blood Venous blood specimen / Unknown 10/15/2024 5:46 PM EDT 10/15/2024 4:41 PM EDT us Janelle Meza APRN LAB BLOOD ORDERABLES Final Result [facility] [address] [place] [address] * (ABNORMAL) Hepatic Function Panel (10/15/2024 5:46 PM EDT) Only the most recent of2 resultswithin the time period is included. Direct Bilirubin, Plasma <0.2 <=0.3 mg/dL 10/16/2024 8:57 AM EDT [facility] Alkaline Phosphatase, Plasma 210(H) 40 - 115 U/L 10/16/2024 8:57 AM EDT [facility] Total Bilirubin, Plasma 0.3 0.2 - 1.1 mg/dL 10/16/2024 8:57 AM EDT [facility] Albumin, Plasma 2.8(L) 3.5 - 5.2 g/dL 10/16/2024 8:57 AM EDT [facility] Total Protein 6.0(L) 6.3 - 7.9 g/dL 10/16/2024 8:57 AM EDT [facility] ALT, Plasma 469(H) 10 - 50 U/L 10/16/2024 8:57 AM EDT [facility] AST, Plasma 154(H) 10 - 50 U/L 10/16/2024 8:57 AM EDT [facility] Blood Venous blood specimen / Unknown Venipuncture / Unknown 10/15/2024 5:46 PM EDT 10/15/2024 4:40 PM EDT us Chandrika Sihelds MD LAB BLOOD ORDERABLES Final Re sult [facility] [address] [place] [id number] * (ABNORMAL) Basic metabolic panel (10/15/2024 5:46 PM EDT) Only the most recent of4 resultswithin the time period is included. Glucose, Plasma 80 74 - 99 mg/dL 10/15/2024 5:21 PM EDT [facility] BUN, Plasma 41(H) 7 - 21 mg/dL 10/15/2024 5:21 PM EDT [facility] Creatinine, Plasma 4.60(H) 0.70 - 1.20 mg/dL 10/15/2024 5:21 PM EDT [facility] BUN/Creatinine Ratio 9 10/15/2024 5:21 PM EDT [facility] Sodium, Plasma 135(L) 136 - 145 mmol/L 10/15/2024 5:21 PM EDT [facility] Potassium, Plasma 4.4 3.6 - 4.9 mmol/L 10/15/2024 5:21 PM EDT [facility] Chloride, Plasma 99 97 - 107 mmol/L 10/15/2024 5:21 PM EDT [facility] CO2, Plasma 21(L) 22 - 29 mmol/L 10/15/2024 5:21 PM EDT [facility] Anion Gap 15 6 - 16 mmol/L 10/15/2024 5:21 PM EDT [facility] Total Calcium, Plasma 7.3(L) 8.9 - 10.2 mg/dL 10/15/2024 5:21 PM EDT [facility] eGFRcr 15.4 mL/min/1.7 3m*2 10/15/2024 5:21 PM EDT [facility] Comment:Reported eGFRcr in m L/min/1.73m2 is based the CKD-EPI 2020 equation that does not use a race coefficient. Blood Venous blood specimen / Unknown Venipuncture / Unknown 10/15/2024 5:46 PM EDT 10/15/2024 4:40 PM EDT Janelle Meza APRN LAB BLOOD ORDERABLES Final Result [facility] [address] [place] [address] * (ABNORMAL) CBC W/O Differential (10/15/2024 3:52 PM EDT) Only the most recent of11 resultswithin the time period is included. Pathologist [facility] WBC Count 6.40 3.70 - 10.30 10*3/uL LAB HEMATOLOGY METHOD 10/15/2024 4:43 PM EDT [facility] RBC Count 3.47(L) 4.60 - 6.10 10*6/uL LAB HEMATOLOGY METHOD 10/15/2024 4:43 PM EDT [facility] HGB 9.4(L) 13.7 - 17.5 g/dL LAB HEMATOLOGY METHOD 10/15/2024 4:43 PM EDT [facility] HCT 31.1(L) 40.0 - 51.0 % LAB HEMATOLOGY METHOD 10/15/2024 4:43 PM EDT [facility] Platelet Count 236 155 - 369 10*3/uL LAB HEMATOLOGY METHOD 10/15/2024 4:43 PM EDT [facility] MCV 90 79 - 98 fL LAB HEMATOLOGY METHOD 10/15/2024 4:43 PM EDT [facility] MCH 27.1 26.0 - 32.0 pg LAB HEMATOLOGY METHOD 10/15/2024 4:43 PM EDT [facility] MCHC 30.2(L) 30.7 - 35.5 g/dL LAB HEMATOLOGY METHOD 10/15/2024 4:43 PM EDT [facility] RDW 18.0(H) 11.5 - 14.5 % LAB HEMATOLOGY METHOD 10/15/2024 4:43 PM EDT [facility] MPV 9.5 8.8 - 12.5 fL LAB HEMATOLOGY METHOD 10/15/2024 4:43 PM EDT [facility] nRBC 0.3(H) <=0.0 per 100 WBCs LAB HEMATOLOGY METHOD 10/15/2024 4:43 PM EDT [facility] Blood Venous blood specimen / Unknown Venipuncture / Unknown 10/15/2024 3:52 PM EDT 10/15/2024 4:41 PM EDT Clara Damon REAL ESTATE LEASING MANAGER, DNP LAB BLOOD ORDERABLE S Final Result [facility] [address] [place] [id number] * VAS US Venous Duplex Lower Extremity [...] MD on 10/15/2024 12:23 PM us Clara Damon REAL ESTATE LEASING MANAGER, DNP CV VASCULAR PROCEDU RES Final Result [...] MD on 10/15/2024 12:21 PM us Clara Damon APRN, DNP IMG US PROCEDURES F inal Result * EGD KEITH LOPEZ; 10/14/2024 (10/14/2024 2:50 PM EDT) Anatomical Region [...] Dax Ernandez MD Fellow Alysha Jessica Endo Admissions Nurse Eduin Greer RN Endo Nurse Kirsty Donald, MEASUREMENT TECHNICIAN MEASUREMENT TECHNICIAN Keith Lopez MD Proceduralist Clarke Mendoza Endo Admissions Nurse Preprocedure A history and physical has been [...] SURGICAL PATHOLOGY EXAM Dax Ernandez MD 10/14/2024 0082 B : esophageal bx Tissue Esophagus SURGICAL PATHOLOGY EXAM Dax Ernandez MD 10/14/2024 6047 Findings Severe, generalized edematous and erythematous esophagitis [...] PM EDT) Case Report Surgical Pathology Case: [id number] Authorizing Provider: Keith Lopez MD Collected: 10/14/2024 1448 Ordering Location: [facility] Inpatient Received: 10/14/2024 5485 Pathologist: Lawrence Acuña DO Specimens: A) - Duodenum, duodenal bx B) - Esophagus, esophageal bx 10/15/2024 12:14 PM EDT [facility] Final Diagnosis A. SMALL INTESTINE, DUODENUM, BIOPSY: - FEATURES SUGGESTIVE OF CHRONIC NONSPECIFIC DUODENITIS. - NO EVIDENCE OF VILLOUS ABNORMALITY OR INTRAEPITHELIAL LYMPHOCYTOSIS. B. ESOPHAGUS, BIOPSY: - FOCAL FEATURES OF REFLUX RELATED CHANGES. 10/15/2024 12:14 PM EDT [facility] at 1214 EDT Clinical Information F11.20 [...] of the duodenum. 10/15/2024 12:14 PM EDT [facility] Gross Description A. DUODENAL BX [...] cassette B1. Cold Time: <1m Penny Gee Calderon 10/15/2024 12:14 PM EDT [facility] Note: A resident was involved in the service. I attest I examined the relevant preparations for the specimens and confirmed the diagnosis or interpretation. 10/15/2024 12:14 PM EDT [facility] Tissue Duodenal structure / Unknown 10/14/2024 2:43 PM EDT 10/14/2024 3:51 PM EDT Tissue specimen (specimen) Esophageal structure / Unknown 10/14/2024 2:48 PM EDT 10/14/2024 3:51 PM EDT us Keith Lopez MD LAB PATHOLOGY ORDERABLES Final R esult [facility] [address] [place] [address] * Streptococcus pneumoniae and Legionella Urinary Antigen (10/14/2024 3:12 AM EDT) Legionella pneumophila serogroup 1 Antigen Result (Urine) Negative Negative 10/14/2024 10:06 AM EDT [facility] Streptococcus pneumoniae Antigen Result (Urine) Negative Negative 10/14/2024 10:06 AM EDT [facility] Urine Urine specimen obtained by clean catch procedure / Unknown Non-blood Collection / Unknown 10/14/2024 3:12 AM EDT 10/14/2024 3:18 AM EDT Najma Walker APRN LAB MICROBIOLOGY - GENERAL ORDERABLES Final Result Performing Organization Address City/[facility] de Phone Number [facility] [address] [place] [address] * Urine Whiteside Panel (10/14/2024 3:12 AM EDT) Extra Reflex urine culture not indicated 10/14/2024 3:38 AM EDT [facility] Urine Urine specimen obtained by clean catch procedure / Unknown Non-blood Collection / Unknown 10/14/2024 3:12 AM EDT 10/14/2024 3:18 AM EDT Cece Miller MD LAB URINE ORDERABLES Final Resul t Performing Organization Address [facility] de Phone Number [facility] [address] [place] [address] * Urinalysis Microscopic Examination (10/14/2024 3:12 AM EDT) Urine Urine specimen obtained by clean catch procedure / Unknown Non-blood Collection / Unknown 10/14/2024 3:12 AM EDT 10/14/2024 3:18 AM EDT Cece Miller MD LAB URINE ORDERABLES Final Resul t Performing Organization Address [facility] de Phone Number [facility] [address] [place] [address] * Drug Abuse Screen Urine (10/14/2024 3:12 AM EDT) Amphetamine Screen Urine Negative Cutoff: 500 ng/mL 10/14/2024 3:37 AM EDT [facility] Benzodiazepines Screen Urine Negative Cutoff: 200 ng/mL 10/14/2024 3:37 AM EDT [facility] Cannabinoid Screen Urine Presumptive positive. Confirmation by LC-MS/MS to follow. Cutoff: 50 ng/mL 10/14/2024 3:37 AM EDT [facility] Cocaine Screen Urine Negative Cutoff: 300 ng/mL 10/14/2024 3:37 AM EDT [facility] Barbiturate Screen Urine Negative Cutoff: 200 ng/mL 10/14/2024 3:37 AM EDT [facility] Opiate Screen Urine Negative Cutoff: 300 ng/mL 10/14/2024 3:37 AM EDT [facility] Methadone Screen Urine Negative Cutoff: 300 ng/mL 10/14/2024 3:37 AM EDT [facility] Buprenorphine Screen Urine Negative Cutoff: 10 ng/mL 10/14/2024 3:37 AM EDT [facility] Fentanyl Screen Urine Negative Cutoff: 1 ng/mL 10/14/2024 3:37 AM EDT [facility] Oxycodone Screen Urine Negative Cutoff: 100 ng/mL 10/14/2024 3:37 AM EDT [facility] Urine Urine specimen obtained by clean catch procedure / Unknown Non-blood Collection / Unknown 10/14/2024 3:12 AM EDT 10/14/2024 3:18 AM EDT Najma Walker APRN LAB URINE ORDERABLES Final Result Performing Organization Address City/State/[facility] Co de Phone Number [facility] [address] [place] [address] * (ABNORMAL) THC Urine Confirm LCMSMS (10/14/2024 3:12 AM EDT) 9 Carboxy THC <10 <10 ng/mL 10/15/2024 6:19 AM EDT [facility] 9 Carboxy THC Glucuronide 116(H) <25 ng/mL 10/15/2024 6:19 AM EDT [facility] Urine Urine specimen obtained by clean catch procedure / Unknown Non-blood Collection / Unknown 10/14/2024 3:12 AM EDT 10/14/2024 3:18 AM EDT Narrative [facility] - 10/15/2024 6:19 AM EDT Drug analysis is confirmed by LC-MS/MS (LC Tandem Mass Spectrometry) on Urine specimens. This test was developed and its performance characteristics determined by [facility]. It has not been cleared or approved by the FDA. The laboratory is regulated under CLIA as qualified to perform high-complexity testing. This test is used for clinical purposes. Testing is performed at the [facility]. Najma Lobo Walker [facility] URINE ORDERABLES Final Result [facility] [address] [place] [address] * (ABNORMAL) Comprehensive Urine Drug Screening, Qualitative Assay, >= 27 Drug Classes (:12 AM EDT) Acetaminophen Negative Negative 10/18/2024 4:50 PM EDT [facility] Alprazolam Negative Negative 10/18/2024 4:50 PM EDT [facility] Amantadine Negative Negative 10/18/2024 4:50 PM EDT [facility] Amitriptyline Negative Negative 10/18/2024 4:50 PM EDT [facility] Amphetamine Negative Negative 10/18/2024 4:50 PM EDT [facility] Atenolol Negative Negative 10/18/2024 4:50 PM EDT [facility] Benzoylecgonine Negative Negative 4:50 PM EDT [facility] Bisoprolol Negative Negative 10/18/2024 4:50 PM EDT [facility] Bupropion Negative Negative 10/18/2024 4:50 PM EDT [facility] Butalbital Negative Negative 10/18/2024 4:50 PM EDT [facility] Carbamazepine Negative Negative 10/18/2024 4:50 PM EDT [facility] Carisoprodol Negative Negative 10/18/2024 4:50 PM EDT [facility] Chlorpheniramine Negative Negative 10/19/19 4:50 PM EDT [facility] Citalopram Negative Negative 10/18/2024 4:50 PM EDT [facility] Clindamycin Negative Negative 10/18/2024 4:50 PM EDT [facility] Clonidine Negative Negative 10/18/2024 4:50 PM EDT [facility] Clopidogrel / Ticlopidine Negative Negative 10/18/2024 4:50 PM EDT [facility] Cocaethylene Negative Negative 10/18/2024 4:50 PM EDT [facility] Cocaine Negative Negative 10/18/2024 4:50 PM EDT [facility] Codeine Negative Negative 10/18/2024 4:50 PM EDT [facility] Cyclobenzaprine Negative Negative 4:50 PM EDT [facility] Desvenlafaxine Negative Negative 10/18/2024 4:50 PM EDT [facility] Dextromethorphan Negative Negative 10/19/19 4:50 PM EDT [facility] Diazepam Negative Negative 10/18/2024 4:50 PM EDT [facility] Diltiazem Negative Negative 10/18/2024 4:50 PM EDT [facility] Diphenhydramine Negative Negative 4:50 PM EDT [facility] Doxepine Negative Negative 10/18/2024 4:50 PM EDT [facility] Doxylamine Negative Negative 10/18/2024 4:50 PM EDT [facility] EDDP-Methadone metabolite Negative Negative 10/18/2024 4:50 PM EDT [facility] Fentanyl Negative Negative 10/18/2024 4:50 PM EDT [facility] Fluconazole Negative Negative 10/18/2024 4:50 PM EDT [facility] Fluoxetine Negative Negative 10/18/2024 4:50 PM EDT [facility] Guaifenesin Negative Negative 10/18/2024 4:50 PM EDT [facility] Haloperidol Negative Negative 10/18/2024 4:50 PM EDT [facility] Heroin/6-JUSTIN Negative Negative 10/18/2024 4:50 PM EDT [facility] Hydrocodone Negative Negative 10/18/2024 4:50 PM EDT [facility] Hydroxyzine / Cetirizine metabolite Negative Negative 10/18/2024 4:50 PM EDT [facility] Ibuprofen Negative Negative 10/18/2024 4:50 PM EDT [facility] Imipramine Negative Negative 10/18/2024 4:50 PM EDT [facility] Ketamine Negative Negative 10/18/2024 4:50 PM EDT [facility] Labetolol Negative Negative 10/18/2024 4:50 PM EDT [facility] Lamotrigine Negative Negative 10/18/2024 4:50 PM EDT [facility] Levetiracetam Negative Negative 10/18/2024 4:50 PM EDT [facility] Lidocaine Positive(A) Negative 10/18/2024 4:50 PM EDT [facility] MDA Negative Negative 10/18/2024 4:50 PM EDT [facility] MDMA Negative Negative 10/18/2024 4:50 PM EDT [facility] Memantine Negative Negative 10/18/2024 4:50 PM EDT [facility] Meperidine Negative Negative 10/18/2024 4:50 PM EDT [facility] Meprobamate Negative Negative 10/18/2024 4:50 PM EDT [facility] Metaxalone Negative Negative 10/18/2024 4:50 PM EDT [facility] Methamphetamine Negative Negative 4:50 PM EDT [facility] Methocarbamol Negative Negative 10/18/2024 4:50 PM EDT [facility] Methylecgonine Negative Negative 10/18/2024 4:50 PM EDT [facility] Metoclopramide Negative Negative 10/18/2024 4:50 PM EDT [facility] Metoprolol Negative Negative 10/18/2024 4:50 PM EDT [facility] Metronidazole Negative Negative 10/18/2024 4:50 PM EDT [facility] Midazolam Negative Negative 10/18/2024 4:50 PM EDT [facility] Midazolam Metabolite Negative Negative 10/18/2024 4:50 PM EDT [facility] Mirtazapine Negative Negative 10/18/2024 4:50 PM EDT [facility] Misc Test Result Negative Negative 10/19/19 4:50 PM EDT [facility] Naproxen Negative Negative 10/18/2024 4:50 PM EDT [facility] Nefazodone Negative Negative 10/18/2024 4:50 PM EDT [facility] Norfentanyl Negative Negative 10/18/2024 4:50 PM EDT [facility] Nortriptyline Negative Negative 10/18/2024 4:50 PM EDT [facility] Ordanstron Negative Negative 10/18/2024 4:50 PM EDT [facility] Oxcarbazepine Negative Negative 10/18/2024 4:50 PM EDT [facility] Oxycodone Negative Negative 10/18/2024 4:50 PM EDT [facility] Paroxethine Negative Negative 10/18/2024 4:50 PM EDT [facility] Phenobarbital Negative Negative 10/18/2024 4:50 PM EDT [facility] Phentermine Negative Negative 10/18/2024 4:50 PM EDT [facility] Phenytoin Negative Negative 10/18/2024 4:50 PM EDT [facility] Primidone Negative Negative 10/18/2024 4:50 PM EDT [facility] Promethazine Negative Negative 10/18/2024 4:50 PM EDT [facility] Propofol Negative Negative 10/18/2024 4:50 PM EDT [facility] Propranolol Negative Negative 10/18/2024 4:50 PM EDT [facility] Quetiapine Negative Negative 10/18/2024 4:50 PM EDT [facility] Quinine Negative Negative 10/18/2024 4:50 PM EDT [facility] Rantidine Negative Negative 10/18/2024 4:50 PM EDT [facility] Sertraline Negative Negative 10/18/2024 4:50 PM EDT [facility] Spironolactone Negative Negative 10/18/2024 4:50 PM EDT [facility] Tizanidine Negative Negative 10/18/2024 4:50 PM EDT [facility] Topiramate Negative Negative 10/18/2024 4:50 PM EDT [facility] Tramadol Negative Negative 10/18/2024 4:50 PM EDT [facility] Trazadone/ Trazadone metabolite Negative Negative 10/18/2024 4:50 PM EDT [facility] Trimethoprim Negative Negative 10/18/2024 4:50 PM EDT [facility] Valproic Acid Negative Negative 10/18/2024 4:50 PM EDT [facility] Venlafaxine Negative Negative 10/18/2024 4:50 PM EDT [facility] Verapamil Negative Negative 10/18/2024 4:50 PM EDT [facility] Zolpidem Negative Negative 10/18/2024 4:50 PM EDT [facility] Xylazine Negative Negative 10/18/2024 4:50 PM EDT [facility] Urine Urine specimen obtained by clean catch procedure / Unknown Non-blood Collection / Unknown 10/14/2024 3:12 AM EDT 10/14/2024 3:18 AM EDT Najma Walker APRN LAB URINE ORDERABLES Final Result Performing Organization Address City/State/[facility] Co de Phone Number [facility] [address] [place] [address] * (ABNORMAL) Urinalysis with reflex microscopic (Culture NOT Included) (10/14/2024 3:12 AM EDT) Color, Urine Yellow LAB URINALYSIS - AUTOMATED METHOD 10/14/2024 3:37 AM EDT [facility] Clarity, Urine Clear LAB URINALYSIS - AUTOMATED METHOD 10/14/2024 3:37 AM EDT [facility] Spec [place], Urine 1.020 1.005 - 1.030 LAB URINALYSIS - AUTOMATED METHOD 10/14/2024 3:37 AM EDT [facility] pH, Urine 8.0 5.0 - 8.0 LAB URINALYSIS - AUTOMATED METHOD 10/14/2024 3:37 AM EDT [facility] Protein, Urine >=300(A) Negative mg/dL LAB URINALYSIS - AUTOMATED METHOD 10/14/2024 3:37 AM EDT [facility] Glucose, Urine 100(A) Negative mg/dL LAB URINALYSIS - AUTOMATED METHOD 10/14/2024 3:37 AM EDT [facility] Ketones, Urine Negative Negative mg/dL LAB URINALYSIS - AUTOMATED METHOD 10/14/2024 3:37 AM EDT [facility] Blood, Urine Trace(A) Negative LAB URINALYSIS - AUTOMATED METHOD 10/14/2024 3:37 AM EDT [facility] Bilirubin, Urine Negative Negative LAB URINALYSIS - AUTOMATED METHOD 10/14/2024 3:37 AM EDT [facility] Urobilinogen, Urine 0.2 0.2 to 1.0 mg/dL LAB URINALYSIS - AUTOMATED METHOD 10/14/2024 3:37 AM EDT [facility] Leukocytes, Urine Negative Negative LAB URINALYSIS - AUTOMATED METHOD 10/14/2024 3:37 AM EDT [facility] Nitrite, Urine Negative Negative LAB URINALYSIS - AUTOMATED METHOD 10/14/2024 3:37 AM EDT [facility] RBC, Urine 1 0 to 3 /HPF 10/14/2024 3:37 AM EDT [facility] Comment:This result was prev iously suppressed from the chart. WBC, Urine 0 - 5 0 to 5 /HPF 10/14/2024 3:37 AM EDT [facility] Comment:This result was prev iously suppressed from the chart. Squamous Epithelial Cells 0 - 2 0 to 5 /HPF 10/14/2024 3:37 AM EDT [facility] Comment:This result was prev iously suppressed from the chart. Hyaline Casts 0 - 2 0 to 5 /LPF 10/14/2024 3:37 AM EDT [facility] Comment:This result was prev iously suppressed from the chart. Bacteria, Urine Negative Negative 10/14/2024 3:37 AM EDT [facility] Comment:This result was prev iously suppressed from the chart. Urine Urine specimen obtained by clean catch procedure / Unknown Non-blood Collection / Unknown 10/14/2024 3:12 AM EDT 10/14/2024 3:18 AM EDT Narrative [facility] - 10/14/2024 3:37 AM EDT Performed by manual method us Cece Miller MD LAB URINE ORDERABLES Final Resul t [facility] [address] [place] [address] * Magnesium, Plasma (10/14/2024 3:10 AM EDT) Only the most recent of12 resultswithin the time period is included. Magnesium, Plasma 2.0 1.9 - 2.4 mg/dL 10/14/2024 3:47 AM EDT [facility] Blood Venous blood specimen / Unknown Venipuncture / Unknown 10/14/2024 3:10 AM EDT 10/14/2024 3:17 AM EDT Clara Damon REAL ESTATE LEASING MANAGER, DNP LAB BLOOD ORDERABLE S Final Result [facility] [address] [place] [address] * Body Fluid Cell Count With Diff - Ascites (10/13/2024 4:44 PM EDT) Color, Body fluid Yellow LAB HEMATOLOGY METHOD 10/13/2024 6:44 PM EDT [facility] Appearance, Body fluid Clear LAB HEMATOLOGY METHOD 10/13/2024 6:44 PM EDT [facility] Volume, Body fluid 9.0 cc LAB HEMATOLOGY METHOD 10/13/2024 6:44 PM EDT [facility] Fluid Container Tube 2 LAB HEMATOLOGY METHOD 10/13/2024 6:44 PM EDT [facility] Red Blood Cell Count, Body fluid 191 uL LAB HEMATOLOGY METHOD 10/13/2024 6:44 PM EDT [facility] Comment:Test performed by albina castillo method. Total Nucleated Cell Count, Body fluid 131 uL LAB HEMATOLOGY METHOD 10/13/2024 6:44 PM EDT [facility] Neutrophils %, Body fluid 8 % LAB HEMATOLOGY METHOD 10/13/2024 6:44 PM EDT [facility] Lymphocytes %, Body fluid 64 % LAB HEMATOLOGY METHOD 10/13/2024 6:44 PM EDT [facility] Monocytes/Macro phages %, Body fluid 24 % LAB HEMATOLOGY METHOD 10/13/2024 6:44 PM EDT [facility] Eosinophils %, Body fluid 0 % LAB HEMATOLOGY METHOD 10/13/2024 6:44 PM EDT [facility] Lining/Mesothel ial Cells %, Body fluid 4 % LAB HEMATOLOGY METHOD 10/13/2024 6:44 PM EDT [facility] Neutrophils Absolute (PMN), Body fluid 10 uL LAB HEMATOLOGY METHOD 10/13/2024 6:44 PM EDT [facility] Lymphocytes Absolute, Body fluid 84 uL LAB HEMATOLOGY METHOD 10/13/2024 6:44 PM EDT [facility] Monocytes/Macro phages Absolute, Body fluid 31 uL LAB HEMATOLOGY METHOD 10/13/2024 6:44 PM EDT [facility] Eosinophils Absolute, Body fluid 0 uL LAB HEMATOLOGY METHOD 10/13/2024 6:44 PM EDT [facility] Basophils Absolute, Body fluid 0 uL LAB HEMATOLOGY METHOD 10/13/2024 6:44 PM EDT [facility] Lining/Mesothel ial Cells Absolute, Body fluid 5 uL LAB HEMATOLOGY METHOD 10/13/2024 6:44 PM EDT [facility] Comment, Body fluid None LAB HEMATOLOGY METHOD 10/13/2024 6:44 PM EDT [facility] Comment:This is an appended report. These results have been appended to a previously preliminary verified report. Basophils %, Body fluid 0 % LAB HEMATOLOGY METHOD 10/13/2024 6:44 PM EDT [facility] Body Fluid Peritoneal fluid / Unknown Non-blood Collection / Unknown 10/13/2024 4:44 PM EDT 10/13/2024 4:56 PM EDT Clara Damon REAL ESTATE LEASING MANAGER, DNP LAB BODY FL UIDS AND STOOLS ORDERABLES NO SPECIMEN TYPE/SOURCE Final Result [facility] [address] [place] [address] * Body fluid, cytospin, pathologist interpretation (10/13/2024 4:44 PM EDT) Specimen Type Body Fluid LAB HEMATOLOGY METHOD 10/14/2024 1:34 PM EDT [facility] Specimen Source, Body Fluid Peritoneal Fluid LAB HEMATOLOGY METHOD 10/14/2024 1:34 PM EDT [facility] Clinical Diagnosis, Body Fluid Ascites LAB HEMATOLOGY METHOD 10/14/2024 1:34 PM EDT [facility] Interpretation , Body Fluid Predominantly chronic inflammatory cells, degenerating histiocytes and mesothelial cells 10/14/2024 1:34 PM EDT [facility] Pathologist Signature, Body Fluid Charlotte Yip MD 10/14/2024 1:34 PM EDT [facility] Comment:Reviewed by: Charlotte Yip MD LAB CP ASR DISCLAIMER No 10/14/2024 1:34 PM EDT [facility] Body Fluid Peritoneal fluid / Unknown Non-blood Collection / Unknown 10/13/2024 4:44 PM EDT 10/13/2024 4:56 PM EDT Clara Damon APRN, JAZMINE LAB BODY FLUIDS AND STOOLS ORDERABLES Final Result [facility] [address] [place] [address] * Amylase, Peritoneal Fluid (10/13/2024 4:42 PM EDT) Amylase Peritoneal Fluid 62 U/L 10/13/2024 6:36 PM EDT [facility] Ascites Peritoneal cavity structure / Unknown 10/13/2024 4:42 PM EDT 10/13/2024 4:56 PM EDT Narrative [facility] - 10/13/2024 6:36 PM EDT Reference Values: No established reference interval. Interpret with caution. This test was developed and its performance characteristics determined by [facility]. The U.S. Food and Drug [...] cytology, plasma/serum results, and other clinical evidence. us Clara Damon APRN, JAZMINE LAB BODY FLUIDS AND STOOLS ORDERABLES Final Result Performing Organization Address [facility] Co de Phone Number [facility] [address] [place] [address] * Albumin - Ascites (10/13/2024 4:42 PM EDT) Albumin, Peritoneal Fluid 2.4 g/dL 10/13/2024 6:36 PM EDT [facility] Ascites Peritoneal cavity structure / Unknown 10/13/2024 4:42 PM EDT 10/13/2024 4:56 PM EDT Narrative [facility] - 10/13/2024 6:36 PM EDT REPORTING RESULTS Reference Values: No established reference interval. Results should be interpreted in comparison to the concentration in blood and in conjunction with the clinical context. This test was developed and its performance characteristics determined by [facility]. The U.S. Food and Drug Administration has not approved or cleared this test; however, FDA clearance or approval is not currently required for clinical use. The results are not intended to be used as the sole means for clinical diagnosis or patient management decisions. Clara Damon REAL ESTATE LEASING MANAGER, DNP LAB BODY FLUIDS AND STOOLS ORDERABLES Final Result Performing Organization Address [facility] de Phone Number [facility] [address] [place] [address] * BILIRUBIN, TOTAL, BODY FLUID (SO) (10/13/2024 4:42 PM EDT) Bilirubin, Total, Body Fluid 0.3 mg/dL 10/15/2024 10:08 PM EDT [facility] ([facility]) Bilirubin, Total Fluid Source Peritoneal fl 10/15/2024 10:08 PM EDT [facility] ([facility]) Peritoneal Fluid Peritoneal cavity structure / Unknown Non-blood Collection / Unknown 10/13/2024 4:42 PM EDT 10/13/2024 4:56 PM EDT Narrative [facility] ([facility]) - 10/15/2024 10:08 PM EDT INTERPRETIVE INFORMATION: Bilirubin, Total, Body Fluid For information on body fluid reference ranges and/or interpretive guidance visit [email or web address] This test was developed and its performance characteristics determined by [facility]. It has not been cleared or approved by the US Food and Drug Administration. This test was performed in a CLIA certified laboratory and is intended for clinical purposes. Performed By: [facility] [address] [place] [id number] Studio Assistant: Deangelo Gee MD, PhD CLIA Number: [id number] Clara Damon APRN, DNP LAB BODY FLUIDS AND STOOLS ORDERABLES Final Result Performing Organization Address City/[facility]/ZIP Co de Phone Number [facility] ([facility]) [address] [place] [phone] * Body Fluid Culture and Gram Stain (10/13/2024 4:42 PM EDT) Culture No growth at day 4 2024 1:06 PM EDT [facility] Gram Stain Result Rare Polymorphonuclear leukocytes 10/16/2024 1:06 PM EDT [facility] Gram Stain Result No organisms seen 10/16/2024 1:06 PM EDT [facility] Peritoneal Fluid Peritoneal cavity structure / Unknown Non-blood Collection / Unknown 10/13/2024 4:42 PM EDT 10/13/2024 4:56 PM EDT Clara Damon APRN, DNP LAB MICROBIOLOGY - GENERAL ORDERABLES Final Result Performing Organization Address City/[facility]/ZIP Co de Phone Number [facility] [address] [place] [address] * Triglyceride - Ascites (10/13/2024 4:42 PM EDT) Triglyceride, Fluid 44 mg/dL 10/16/2024 5:52 AM EDT [facility] ([facility]) Triglyceride Fluid Source Peritoneal fl 10/16/2024 5:52 AM EDT [facility] ([facility]) Peritoneal Fluid Non-blood Collection / Unknown 10/13/2024 4:42 PM EDT 10/13/2024 4:56 PM EDT Narrative [facility] - 10/16/2024 5:52 AM EDT INTERPRETIVE INFORMATION: Triglycerides, Fluid For information on body fluid reference ranges and/or interpretive guidance visit [email or web address] This test was developed and its performance characteristics determined by [facility]. It has not been cleared or approved by the US Food and Drug Administration. This test was performed in a CLIA certified laboratory and is intended for clinical purposes. Performed By: [facility] [address] [place] [address] Studio Assistant: Deangelo Gee MD, PhD CLIA Number: [id number] Clara Damon APRN, JAZMINE LAB REF LAB BLOOD A ND FLUID ORD Final Result [facility] ([facility]) [address] [place] [id number] * Protein - Ascites (10/13/2024 4:42 PM EDT) Total Protein, Fluid 4.6 g/dL 10/13/2024 6:36 PM EDT [facility] Ascites Peritoneal cavity structure / Unknown 10/13/2024 4:42 PM EDT 10/13/2024 4:56 PM EDT Narrative [facility] - 10/13/2024 6:36 PM EDT This test was developed and its performance characteristics determined by [facility]. The U.S. Food and Drug Administration has not approved or cleared this test. However, FDA clearance or approval is not currently required for clinical use. The results are not intended to be used as the sole means for clinical diagnosis or patient management decisions. Clara Damon APRN, JAZMINE LAB BODY FLUIDS AND STOOLS ORDERABLES Final Result [facility] [address] [place] [address] * LDH - Ascites (10/13/2024 4:42 PM EDT) LDH, Fluid 242 U/L 10/13/2024 6:36 PM EDT [facility] Ascites Peritoneal cavity structure / Unknown 10/13/2024 4:42 PM EDT 10/13/2024 4:56 PM EDT [facility] - 10/13/2024 6:36 PM EDT No [...] Glucose < 50 mg/dL. Clara Damon APRN, JAZMINE LAB BODY FLUIDS AND STOOLS ORDERABLES Final Result Performing Organization Address [facility] [place] [address] * Glucose - Ascites (10/13/2024 4:42 PM EDT) Glucose, Fluid 84 mg/dL 10/13/2024 6:36 PM EDT [facility] Ascites Peritoneal cavity structure / Unknown 10/13/2024 4:42 PM EDT 10/13/2024 4:56 PM EDT [facility] - 10/13/2024 6:36 PM EDT Peritoneal/Ascites [...] Glucose < 50 mg/dL. Clara Damon APRN, JAZMINE LAB BODY FLUIDS AND STOOLS ORDERABLES Final Result Performing Organization Address [facility] Co de Phone Number [facility] [address] [place] [address] * [place] ABDOM PARACENTESIS DX/THER W IMAGING GUIDANCE, HC [...] infection and pain Alternatives discussed: No treatment Elizabeth protocol: Procedure explained and questions answered to [...] completion: Tolerated well, no immediate complications us Clara Damon APRN, DNP IN CLINIC/BEDSIDE O RDERABLES Edited Result - Final * Lactate, venous (10/13/2024 3:05 PM EDT) Lactate, Venous, Whole Blood 1.4 0.5 - 2.2 mmol/L LAB HEMATOLOGY METHOD 10/13/2024 3:38 PM EDT [facility] Blood Venous blood specimen / Unknown Venipuncture / Unknown 10/13/2024 3:05 PM EDT 10/13/2024 3:24 PM EDT Krissy Jimenez MD LAB BLOOD ORDERABLES Estefany galloway Result [facility] [address] [place] [address] * (ABNORMAL) Blood gas panel, venous (10/13/2024 3:05 PM EDT) Only the most recent of2 resultswithin the time period is included. pH, Venous 7.40 7.32 - 7.43 LAB HEMATOLOGY METHOD 10/13/2024 3:38 PM EDT [facility] pCO2, Venous 38(L) 40 - 55 mmHg LAB HEMATOLOGY METHOD 10/13/2024 3:38 PM EDT [facility] pO2, Venous 53(H) 25 - 40 mmHg LAB HEMATOLOGY METHOD 10/13/2024 3:38 PM EDT [facility] SO2, Measured, Venous 83(H) 65 - 80 % LAB HEMATOLOGY METHOD 10/13/2024 3:38 PM EDT [facility] Base Excess, Venous -0.8 -2.0 - 3.0 mmol/L LAB HEMATOLOGY METHOD 10/13/2024 3:38 PM EDT [facility] Bicarbonate, Calculated, Venous 24 22 - 26 mmol/L LAB HEMATOLOGY METHOD 10/13/2024 3:38 PM EDT [facility] Hematocrit, Whole Blood 36.7(L) 40.0 - 51.0 % LAB HEMATOLOGY METHOD 10/13/2024 3:38 PM EDT [facility] Sodium, Whole Blood 137 136 - 145 mmol/L LAB HEMATOLOGY METHOD 10/13/2024 3:38 PM EDT [facility] Potassium, Whole Blood 5.0(H) 3.6 - 4.9 mmol/L LAB HEMATOLOGY METHOD 10/13/2024 3:38 PM EDT [facility] Chloride, Whole Blood 102 97 - 107 mmol/L LAB HEMATOLOGY METHOD 10/13/2024 3:38 PM EDT [facility] Glucose, Whole Blood 88 74 - 99 mg/dL LAB HEMATOLOGY METHOD 10/13/2024 3:38 PM EDT [facility] Lactate, Venous, Whole Blood 1.4 0.5 - 2.2 mmol/L LAB HEMATOLOGY METHOD 10/13/2024 3:38 PM EDT [facility] Ionized Calcium, Whole Blood 4.3(L) 4.6 - 5.1 mg/dL LAB HEMATOLOGY METHOD 10/13/2024 3:38 PM EDT [facility] Blood Venous blood specimen / Unknown Venipuncture / Unknown 10/13/2024 3:05 PM EDT 10/13/2024 3:24 PM EDT Krissy Jimenez MD LAB BLOOD ORDERABLES Estefany galloway Result [facility] [address] [place] [id number] * [place] CRITICAL CARE, E/M 30-74 MINUTES (10/13/2024 12:37 PM EDT) Narrative Krissy Jimenez MD - 10/13/2024 12:37 PM EDT Krissy Jimenez MD 10/14/2024 11:51 AM Critical Care Performed by: Clara Damon APRN, DNP Authorized by: Clara Damon APRN, DNP Critical care provider statement: Critical care time [...] not concurrent with that of other providers. Clara Damon APRN, DNP IN CLINIC/BEDSIDE O RDERABLES Final Result * (ABNORMAL) Hepatitis C Virus (HCV) Quantitative PCR (10/13/2024 11:34 AM EDT) Hepatitis C Virus (HCV) Quantitative Interpretation Detected( A) Not Detected. 10/15/2024 3:18 PM EDT [facility] Hepatitis C Virus (HCV) Quantitative Viral Load Log Result 2.40 <1.08 log10 IU/mL 10/15/2024 3:18 PM EDT [facility] Hepatitis C Virus (HCV) Quantitative IU/mL Result 254 <12 IU/mL 10/15/2024 3:18 PM EDT [facility] Blood Venous blood specimen / Unknown Venipuncture / Unknown 10/13/2024 11:34 AM EDT 10/13/2024 11:38 AM EDT Narrative [facility] - 10/15/2024 3:18 PM EDT [...] approved for clinical use. Lashay Gong APRN, DNP LAB BLOOD ORDERABLES Final Result [facility] [address] [place] [address] * (ABNORMAL) Hepatitis C Virus (HCV) Genotype (10/13/2024 11:34 AM EDT) Hepatitis C Virus (HCV) Genotype Result Hepatitis C Virus Genotype: 3(A) Not Detected 10/19/2024 4:10 AM EDT [facility] Blood Venous blood specimen / Unknown Venipuncture / Unknown 10/13/2024 11:34 AM EDT 10/13/2024 11:38 AM EDT Narrative [facility] - 10/19/2024 4:10 AM EDT This test is performed by the Excorda m2000 instrument for Real Time PCR HCV Genotype II. This test is FDA approved for use with serum specimens. This test is used for clinical purposes. It should not be regarded as investigational or for research. Reference interval includes HCV Genotypes: 1, 1A, 1B, 2, 3, 4, and 5. The [facility] is certified under the Clinical Laboratory Improvement Amendments of 1988 (CLIA-88) as qualified to perform high complexity clinical laboratory testing. us Lashay Gong APRN, JAZMINE LAB BLOOD ORDERABLES Final Result [facility] [address] [place] [address] * (ABNORMAL) Serum Drug Screen (10/13/2024 11:34 AM EDT) 9 Carboxy THC 56(H) <5 ng/mL 10/17/2024 4:25 PM EDT [facility] Alprazolam <5 <5 ng/mL 10/17/2024 4:25 PM EDT [facility] Amphetamine <10 <10 ng/mL 10/17/2024 4:25 PM EDT [facility] Benzolyecgonine <20 <20 ng/mL 4:25 PM EDT [facility] Buprenorphine <1.0 <1.0 ng/mL 10/17/2024 4:25 PM EDT [facility] Butalbital <50 <50 ng/mL 10/17/2024 4:25 PM EDT [facility] Clonazepam <5 <5 ng/mL 10/17/2024 4:25 PM EDT [facility] Codeine <5 <5 ng/mL 10/17/2024 4:25 PM EDT [facility] Diazepam <5 <5 ng/mL 10/17/2024 4:25 PM EDT [facility] Fentanyl <1 <1 ng/mL 10/17/2024 4:25 PM EDT [facility] Hydrocodone <2 <2 ng/mL 10/17/2024 4:25 PM EDT [facility] Hydromorphone <5 <5 ng/mL 10/17/2024 4:25 PM EDT [facility] Lorazepam <5 <5 ng/mL 10/17/2024 4:25 PM EDT [facility] MDA <10 <10 ng/mL 10/17/2024 4:25 PM EDT [facility] MDMA <10 <10 ng/mL 10/17/2024 4:25 PM EDT [facility] Meperidine <5 <5 ng/mL 10/17/2024 4:25 PM EDT [facility] Methadone <10 <10 ng/mL 10/17/2024 4:25 PM EDT [facility] Methadone Metabolite <10 <10 ng/mL 10/06 4:25 PM EDT [facility] Methamphetamine <10 <10 ng/mL 4:25 PM EDT [facility] Midazolam <5 <5 ng/mL 10/17/2024 4:25 PM EDT [facility] Morphine <2 <2 ng/mL 10/17/2024 4:25 PM EDT [facility] Norbuprenorphine <5 <5 ng/mL 10/18/19 4:25 PM EDT [facility] Nordiazepam <10 <10 ng/mL 10/17/2024 4:25 PM EDT [facility] Oxazepam <5 <5 ng/mL 10/17/2024 4:25 PM EDT [facility] Oxycodone 9(H) <2 ng/mL 10/17/2024 4:25 PM EDT [facility] Oxymorphone <2 <2 ng/mL 10/17/2024 4:25 PM EDT [facility] Phenobarbital <50 <50 ng/mL 10/17/2024 4:25 PM EDT [facility] Temazepam <5 <5 ng/mL 10/17/2024 4:25 PM EDT [facility] Tramadol <20 <20 ng/mL 10/17/2024 4:25 PM EDT [facility] Blood Venous blood specimen / Unknown Venipuncture / Unknown 10/13/2024 11:34 AM EDT 10/13/2024 11:37 AM EDT Narrative [facility] - 10/17/2024 4:25 PM EDT Test performed by LC-MS/MS at the [facility]. This test was developed and its performance characteristics determined by [facility]. It has not been cleared or approved by the FDA. The laboratory is regulated under CLIA as qualified to perform high-complexity testing. This test is used for clinical purposes. us Clara Damon APRN, DNP LAB BLOOD ORDERABLE S Final Result [facility] [address] [place] [address] * (ABNORMAL) Renal function panel (10/13/2024 11:34 AM EDT) Only the most recent of3 resultswithin the time period is included. Glucose, Plasma 90 74 - 99 mg/dL 10/13/2024 12:27 PM EDT [facility] BUN, Plasma 57(H) 7 - 21 mg/dL 10/13/2024 12:27 PM EDT [facility] Creatinine, Plasma 5.16(H) 0.70 - 1.20 mg/dL 10/13/2024 12:27 PM EDT [facility] BUN/Creatinine Ratio 11 10/13/2024 12:27 PM EDT [facility] Sodium, Plasma 137 136 - 145 mmol/L 10/13/2024 12:27 PM EDT [facility] Potassium, Plasma 5.4(H) 3.6 - 4.9 mmol/L 10/13/2024 12:27 PM EDT [facility] Chloride, Plasma 99 97 - 107 mmol/L 10/13/2024 12:27 PM EDT [facility] CO2, Plasma 22 22 - 29 mmol/L 10/13/2024 12:27 PM EDT [facility] Anion Gap 16 6 - 16 mmol/L 10/13/2024 12:27 PM EDT [facility] Total Calcium, Plasma 8.8(L) 8.9 - 10.2 mg/dL 10/13/2024 12:27 PM EDT [facility] Phosphorus, Plasma 7.1(H) 2.5 - 4.5 mg/dL 10/13/2024 12:27 PM EDT [facility] Albumin, Plasma 3.0(L) 3.5 - 5.2 g/dL 10/13/2024 12:27 PM EDT [facility] eGFRcr 13.5 mL/min/1.7 3m*2 10/13/2024 12:27 PM EDT [facility] Comment:Reported eGFRcr in m L/min/1.73m2 is based the CKD-EPI 2020 equation that does not use a race coefficient. Blood Venous blood specimen / Unknown Venipuncture / Unknown 10/13/2024 11:34 AM EDT 10/13/2024 11:39 AM EDT us Nicki Anders Díazt REAL ESTATE LEASING MANAGER, DNP LAB BLOOD ORDERABLES Estefany galloway Result [facility] [address] [place] [id number] * ECHO, ADULT TRANSTHORACIC COMPLETE (10/13/2024 10:37 AM EDT) Height 183.0 FLORESITA ISCV Weight 80.0 FLORESITA ISCV BSA 2.02 m2 FLORESITA ISCV LVIDd 53 mm FLORESITA ISCV LVIDs 46 mm FLORESITA ISCV IVSd 10 mm FLORESITA ISCV LVPWd 14 mm FLORESITA ISCV LV MASS(C)D 256 g FLORESITA ISCV [facility] CV ECHO LV MASS INDEX 127 g/m2 [...] Root Diam 35 mm FLORESITA ISCV PA WA(ACCEL) 30.6 mmHg FLORESITA ISCV LVLs ap2 9.1 [...] significant interval change noted. us Najma Walker REAL ESTATE LEASING MANAGER CV ECHO PROCEDURES Final Re sult * CT Abdomen Pelvis wo IV Contrast (10/13/2024 4:29 AM EDT) Anatomical Region Laterality Modality Abdomen, [...] by Brenda Jara on 10/13/2024 4:40 AM us Najma Walker REAL ESTATE LEASING MANAGER IMG CT PROCEDURES Final Res ult * XR Chest 1 View - bedside (10/13/2024 1:13 AM EDT) Only the most recent of2 [...] Kai Fitzpatrick MD on 10/13/2024 8:49 AM us Najma Walker REAL ESTATE LEASING MANAGER IMG XR PROCEDURES Final Res ult * (ABNORMAL) Troponin T, High Sensitivity, 2 Hour, Plasma (10/12/2024 11:40 PM EDT) Troponin T, High Sensitivity, 2 Hour 148(H) <19 ng/L 10/13/2024 12:06 AM EDT [facility] Troponin Delta 7 <10 ng/L 10/13/2024 12:06 AM EDT [facility] Troponin Delta Interpretation Not Significant 10/13/2024 12:06 AM EDT [facility] Comment:Not Significant. No acute change in troponin observed between the baseline and 2 hour samples. Blood Venous blood specimen / Unknown Venipuncture / Unknown 10/12/2024 11:40 PM EDT 10/12/2024 11:44 PM EDT Cece Miller MD LAB BLOOD ORDERABLES Final Resul t [facility] [address] [place] [address] * (ABNORMAL) Ionized calcium, serum (10/12/2024 11:40 PM EDT) Ionized Calcium, Serum 4.2(L) 4.6 - 5.3 mg/dL LAB HEMATOLOGY METHOD 10/12/2024 11:53 PM EDT [facility] Blood Venous blood specimen / Unknown Venipuncture / Unknown 10/12/2024 11:40 PM EDT 10/12/2024 11:44 PM EDT Najma Walker REAL ESTATE LEASING MANAGER LAB BLOOD ORDERABLES Final Result Performing Organization Address City/[facility]/ZIP Co de Phone Number [facility] [address] [place] [address] * (ABNORMAL) BETA HYDROXYBUTYRIC ACID (10/12/2024 11:40 PM EDT) Pathologist [facility] Beta-Hydroxybu tyric Acid, Plasma 0.378(H) <=0.27 mmol/L 10/13/2024 12:25 PM EDT [facility] Blood Venous blood specimen / Unknown Venipuncture / Unknown 10/12/2024 11:40 PM EDT 10/12/2024 11:44 PM EDT Clara Damon REAL ESTATE LEASING MANAGER, DNP LAB BLOOD ORDERABLE S Final Result Performing Organization Address City/[facility]/ZIP Co de Phone Number [facility] [address] [place] [address] * Germán auris Surveillance by PCR (10/12/2024 10:37 PM EDT) Germán auris PCR Result Not Detected Not Detected 10/13/2024 2:48 PM EDT [facility] Swab (Axilla and Groin) Non-blood Collection / Unknown 10/12/2024 10:37 PM EDT 10/13/2024 3:39 AM EDT Narrative [facility] - 10/13/2024 2:48 PM EDT This PCR assay was developed and its performance characteristics determined by [facility] as appropriate for clinical purposes. This assay has not been cleared or approved by the FDA, but is performed in a CLIA regulated laboratory that is qualified to perform high-complexity testing. [facility] MICROBIOLOGY - GENERAL ORDERABLES Final Result Performing Organization Address [facility] Co de Phone Number [facility] [address] [place] [address] * (ABNORMAL) Multi Drug Resistance Test (10/12/2024 10:37 PM EDT) Culture Methicillin-Resist ant Staphylococcus aureus(AA) 10/14/2024 10:21 AM EDT [facility] Swab (Nares and Annetta Rectal) Non-blood Collection / Unknown 10/12/2024 10:37 PM EDT 10/13/2024 3:39 AM EDT Narrative [facility] - 10/14/2024 10:21 AM EDT This test was developed and its performance characteristics determined by the [facility]. Although the media is FDA-approved, it is not FDA-approved for all specimen types submitted. The FDA has determined that such clearance or approval is not necessary. This test is used for surveillance purposes. It should not be regarded as investigational or for research. The [facility] is certified under the Clinical Laboratory Improvement Amendments of 1988 (CLIA-88) as qualified to perform high complexity clinical laboratory testing. [facility] MICROBIOLOGY - GENERAL ORDERABLES Final Result Performing Organization Address [facility] Co de Phone Number [facility] [address] [place] [address] * Blood Culture (Aerobic/Anaerobet Set) (10/12/2024 10:36 PM EDT) Only the most recent of2 resultswithin the time period is included. Culture No growth at day 5 10/18/2024 9:01 AM EDT [facility] Blood Venous blood specimen / Unknown Venipuncture / Unknown 10/12/2024 10:36 PM EDT 10/13/2024 3:38 AM EDT Narrative [facility] - 10/18/2024 9:01 AM EDT Low blood volume submitted, results may be compromised us Cece Miller MD LAB MICROBIOLOGY - GENERAL ORDER NICHOL Final Result [facility] [address] [place] [address] * ECG - RT (10/12/2024 9:42 PM EDT) Only the most recent of3 resultswithin the time period is included. EKG DIAGNOSIS CLASS Borderline Abnormal MUSE ECG Ventricular Rate 97 BPM MUSE ECG Atrial Rate 97 BPM MUSE ECG WA Interval 142 ms MUSE ECG QRSD Interval 86 ms MUSE ECG QT Interval 364 ms MUSE ECG QTC Interval 463 ms MUSE ECG P [place] 35 degrees MUSE ECG R [place] -19 degrees MUSE ECG T Wave [place] 51 degrees MUSE ECG Diagnosis Normal sinus rhythm MUSE ECG Diagnosis Possible Left atrial enlargement MUSE ECG Diagnosis Borderline ECG MUSE ECG Diagnosis MUSE ECG Diagnosis Confirmed by Colin Andujar ([id number]) on 10/12/2024 10:36:12 PM MUSE ECG 10/12/2024 9:42 PM EDT 10/12/2024 10:36 PM EDT Najma Walker APRN ECG ORDERABLES Final Resul t Performing Organization Address City/[facility] Co de Phone Number MUSE ECG * Ethylene Glycol Plasma (10/12/2024 9:00 PM EDT) Pathologist [facility] Ethylene Glycol, Plasma <10 <10 mg/dL 10/12/2024 10:36 PM EDT [facility] Blood Venous blood specimen / Unknown Venipuncture / Unknown 10/12/2024 9:00 PM EDT 10/12/2024 9:07 PM EDT Narrative [facility] - 10/12/2024 10:36 PM EDT This test was developed and its performance characteristics determined by [facility]. It has not been cleared or approved by the FDA. The laboratory is regulated under CLIA as qualified to perform high-complexity testing. This test is used for clinical purposes. Enzymatic Assay: Performed on Bernie Minor. Najma Walker APRN LAB BLOOD ORDERABLES Final Result Performing Organization Address [facility]/ZIP Co de Phone Number [facility] [address] [place] [address] * Alcohol Profile Plasma ([place] Only) (10/12/2024 9:00 PM EDT) Methanol Plasma <10 <10 mg/dL 3:51 AM EDT [facility] Acetone Plasma <10 <10 mg/dL 10/13/2024 3:51 AM EDT [facility] Isopropanol Plasma <10 <10 mg/dL 10/13/2024 3:51 AM EDT [facility] Ethanol Plasma <10 <10 mg/dL 10/13/2024 3:51 AM EDT [facility] Blood Venous blood specimen / Unknown Venipuncture / Unknown 10/12/2024 9:00 PM EDT 10/12/2024 9:07 PM EDT Narrative [facility] - 10/13/2024 3:51 AM EDT Test performed by Gas Chromatography at the [facility]. This test was developed and its performance characteristics determined by [facility]. It has not been cleared or approved by the FDA.The laboratory is regulated under CLIA as qualified to perform high-complexity testing. This test is used for clinical purposes only. Test performed by Gas Chromatography at the [facility]. This test was developed and its performance characteristics determined by [facility]. It has not been cleared or approved by the FDA.The laboratory is regulated under CLIA as qualified to perform high-complexity testing. This test is used for clinical purposes only. [facility] LAB BLOOD ORDERABLES Final Result Performing Organization Address [facility] Co de Phone Number [facility] [address] [place] [address] * Cortisol, serum (10/12/2024 9:00 PM EDT) Cortisol 13.50 Before 10am: 3.7 - 19.4. After 5pm: 2.9 - 17.3 ug/dL 10/13/2024 12:38 AM EDT [facility] Comment:Testing performed on [employer], standardized against SHELTER Reference Standard concentration values assigned by LC-MS/MS and verified by BCR 192 and BCR 193 certified reference materials. Blood Venous blood specimen / Unknown Venipuncture / Unknown 10/12/2024 9:00 PM EDT 10/12/2024 9:14 PM EDT us Najma Walker APRN LAB REF LAB BLOOD AND FLUID ORD Final Result [facility] [address] [place] [address] * [place] CRITICAL CARE, E/M 30-74 MINUTES (10/12/2024 8:13 [...] with that of other providers. Najma Walker REAL ESTATE LEASING MANAGER IN CLINIC/BEDSIDE ORDERABLE S Final Result * Anti Xa Level Low Molecular Weight (10/12/2024 7:25 PM EDT) Anti Xa Level Low Molecular Weight Heparin <0.11 <2.00 IU/mL 10/12/2024 7:44 PM EDT [facility] Blood Venous blood [...] 2.0 IU/mL LMWH enoxaparin prophylaxis: Not established Cece Miller MD LAB BLOOD ORDERABLES Final Resul t Performing Organization Address City/[facility]/ZIP Co de Phone Number [facility] [address] [place] [address] * (ABNORMAL) Troponin now and 120 min (10/12/2024 7:24 PM EDT) [facility] Troponin T, High Sensitivity, 0 Hour 155(H) <19 ng/L 10/12/2024 7:50 PM EDT [facility] Blood Venous blood specimen / Unknown Venipuncture / Unknown 10/12/2024 7:24 PM EDT 10/12/2024 7:28 PM EDT us Cece Miller MD LAB BLOOD ORDERABLES Final Resul t [facility] [address] [place] [address] * (ABNORMAL) Cystatin C (10/12/2024 7:24 PM EDT) Cystatin C 5.14(H) 0.61 - 0.95 mg/L 10/12/2024 11:50 PM EDT [facility] Blood Venous blood specimen / Unknown Venipuncture / Unknown 10/12/2024 7:24 PM EDT 10/12/2024 7:28 PM EDT Najma Walker REAL ESTATE LEASING MANAGER LAB BLOOD ORDERABLES Final Result Performing Organization Address City/[facility]/ZIP Co de Phone Number [facility] [address] [place] [address] * Creatine Kinase, Total, Plasma (10/12/2024 7:24 PM EDT) Creatine Kinase, Plasma 210 49 - 320 U/L 10/12/2024 9:21 PM EDT [facility] Blood Venous blood specimen / Unknown Venipuncture / Unknown 10/12/2024 7:24 PM EDT 10/12/2024 7:28 PM EDT [facility] Walker [facility] BLOOD ORDERABLES Final Result Performing Organization Address City/[facility] de Phone Number [facility] [address] [place] [address] * (ABNORMAL) Procalcitonin, Plasma (10/12/2024 7:24 PM EDT) Procalcitonin, Plasma 1.64(H) <0.09 ng/mL 10/12/2024 9:21 PM EDT [facility] Blood Venous blood specimen / [...] predict 28 day mortality risk. Please consult [email or web address] for more information. Test performed at [facility]. Najma Walker REAL ESTATE LEASING MANAGER LAB BLOOD ORDERABLES Final Result Performing Organization Address [facility] de Phone Number [facility] [address] [place] [address] * (ABNORMAL) Acetaminophen, Quantitative, Plasma (10/12/2024 7:24 PM EDT) Acetaminophen <5.0(L) 10.0 - 30.0 g/mL 10/12/2024 9:21 PM EDT [facility] Blood Venous blood specimen / Unknown Venipuncture / Unknown 10/12/2024 7:24 PM EDT 10/12/2024 7:28 PM EDT Narrative [facility] - 10/12/2024 9:21 PM EDT Therapeutic: 10 to 30 ug/mL Supratherapeutic: >35 ug/mL Najma Walker [facility] BLOOD ORDERABLES Final Result Performing Organization Address [facility] Phone Number [facility] [address] [place] [address] * (ABNORMAL) N-Terminal ProBNP, Plasma (10/12/2024 7:24 PM EDT) Only the most recent of2 resultswithin the time period is included. N-Terminal, PROBNP, Plasma >70,000(H) 0 - 449 pg/mL 10/12/2024 10:03 PM EDT [facility] Blood Venous blood specimen / Unknown Venipuncture / Unknown 10/12/2024 7:24 PM EDT 10/12/2024 7:28 PM EDT Najma Walker REAL ESTATE LEASING MANAGER LAB BLOOD ORDERABLES Final Result Performing Organization Address City/[facility]/ZIP Co de Phone Number [facility] [address] [place] [address] * (ABNORMAL) PT-INR (10/12/2024 7:24 PM EDT) Only the most recent of5 resultswithin the time period is included. Prothrombin Time 24.7(H) 12.0 - 14.3 sec 10/12/2024 7:44 PM EDT [facility] INR 2.2(H) 0.9 - 1.1 10/12/2024 7:44 PM EDT [facility] Blood Venous blood [...] INR 2.5 to 3.5 Prevention of recurrent [place] INR 2.5 to 3.5 us Cece Miller MD LAB BLOOD ORDERABLES Final Resul t Performing Organization Address City/State/[facility] Co de Phone Number [facility] [address] [place] [address] * Type and screen (10/12/2024 7:24 PM EDT) Only the most recent of2 resultswithin the time period is included. ABO/Rh B Positive 10/12/2024 7:13 PM EDT BLOOD BANK Antibody Screen Negative 10/12/2024 7:13 PM EDT BLOOD BANK Specimen Expiration 10/15/2024 23:59 10/12/2024 7:13 PM EDT BLOOD BANK Blood Venous blood specimen / Unknown Venipuncture / Unknown 10/12/2024 7:24 PM EDT 10/12/2024 7:27 PM EDT us Cece Miller MD LAB BLOOD BANK TEST ORDERABLES F inal Result BLOOD BANK [address] [place] [address], * (ABNORMAL) C-reactive protein (10/12/2024 7:24 PM EDT) Only the most recent of5 resultswithin the time period is included. CRP, [...] risk order high sensitivity CRP (CRPH). Najma Walker REAL ESTATE LEASING MANAGER LAB BLOOD ORDERABLES Final Result Performing Organization Address [facility] Co de Phone Number [facility] [address] [place] [address] * Thyroid Stimulating Hormone, Plasma (10/12/2024 7:24 PM EDT) Thyroid Stimulating Hormone, Plasma 3.58 0.40 - 4.20 uIU/mL 10/12/2024 9:21 PM EDT [facility] Blood Venous blood specimen / Unknown Venipuncture / Unknown 10/12/2024 7:24 PM EDT 10/12/2024 7:28 PM EDT [employer] LAB BLOOD ORDERABLES Final Result Performing Organization Address City/[facility] Co de Phone Number [facility] [address] [place] [address] * Free T4, Plasma (10/12/2024 7:24 PM EDT) Free T4, Plasma 1.1 0.8 - 1.7 ng/dL 10/12/2024 9:31 PM EDT [facility] Blood Venous blood specimen / Unknown Venipuncture / Unknown 10/12/2024 7:24 PM EDT 10/12/2024 7:28 PM EDT Najma Walker APRN LAB BLOOD ORDERABLES Final Result Performing Organization Address [facility] Co de Phone Number [facility] [address] [place] [address] * (ABNORMAL) Prealbumin, Plasma (10/12/2024 7:24 PM EDT) Pathologist [facility] Prealbumin, Plasma 15.0(L) 20.0 - 41.0 mg/dL 10/12/2024 11:50 PM EDT [facility] Blood Venous blood specimen / Unknown Venipuncture / Unknown 10/12/2024 7:24 PM EDT 10/12/2024 7:28 PM EDT Najma Walker APRN LAB BLOOD ORDERABLES Final Result Performing Organization Address [facility] de Phone Number [facility] [address] [place] [address] * (ABNORMAL) Lipase (10/12/2024 7:24 PM EDT) Pathologist [facility] Lipase, Plasma 92(H) 19 - 63 U/L 10/12/2024 8:17 PM EDT [facility] Blood Venous blood specimen / Unknown Venipuncture / Unknown 10/12/2024 7:24 PM EDT 10/12/2024 7:28 PM EDT Result [facility] Cece Miller MD LAB BLOOD ORDERABLES Final Resul t Performing Organization Address City/[facility]/ZIP Co de Phone Number [facility] [address] [place] [address] * Hemoglobin A1c (10/12/2024 7:24 PM EDT) [facility] Hemoglobin A1c 4.1 <5.7 % 10/13/2024 1:04 PM EDT [facility] Blood Venous blood specimen / Unknown Venipuncture / Unknown 10/12/2024 7:24 PM EDT 10/12/2024 7:29 PM EDT Narrative [facility] - 10/13/2024 1:04 PM EDT [...] BLOOD ORDERABLES Final Result Performing Organization Address City/[facility]/ZIP Co de Phone Number [facility] [address] [place] [address] * Ammonia (10/12/2024 7:24 PM EDT) Ammonia 14 11 - 51 umol/L 10/12/2024 7:51 PM EDT [facility] Blood Venous blood specimen / Unknown Venipuncture / Unknown 10/12/2024 7:24 PM EDT 10/12/2024 7:28 PM EDT Cece Miller MD LAB BLOOD ORDERABLES Final Resul t Performing Organization Address City/[facility] Co de Phone Number [facility] [address] [place] [address] * Salicylate, Quantitative, Plasma (10/12/2024 7:24 PM EDT) Salicylate, Quantitative, Plasma 9.62 <25 mg/dL mg/dL 10/12/2024 9:21 PM EDT [facility] Blood Venous blood specimen / Unknown Venipuncture / Unknown 10/12/2024 7:24 PM EDT 10/12/2024 7:28 PM EDT Narrative [facility] - 10/12/2024 9:21 PM EDT Therapeutic Range: <25 mg/dL Supratherapeutic Level: >30 mg/dL Najma J Walker REAL ESTATE LEASING MANAGER LAB BLOOD ORDERABLES Final Result [facility] [address] [place] [address] * [place] [facility], E/M 30-74 MINUTES (10/12/2024 6:45 [...] radiographic studies and review of old charts Cece Miller MD IN CLINIC/BEDSIDE ORDERABLES Fin [...] Positive(A ) Negative 09/10/2024 4:55 PM EDT [facility] Blood Venous blood specimen / Unknown Venipuncture / Unknown 09/10/2024 2:40 PM EDT 09/10/2024 2:40 PM EDT Eri Becker MD LAB BLOOD ORDERABLES Fin al Result Performing Organization Address City/[facility] Co de Phone Number [facility] [address] [place] [address] * Hepatitis B Surface Antigen (09/10/2024 2:40 PM EDT) Hepatitis B Surf Antigen Negative Negative 09/10/2024 4:17 PM EDT [facility] Blood Venous blood specimen / Unknown Venipuncture / Unknown 09/10/2024 2:40 PM EDT 09/10/2024 2:40 PM EDT Eri Becker MD LAB BLOOD ORDERABLES Fin al Result Performing Organization Address [facility] Co de Phone Number [facility] [address] [place] [address] * Lavender Top (09/04/2024 9:05 AM EDT) Pathologist [facility] Extra Hold for add-ons 09/04/2024 12:01 PM EDT [facility] Comment:Auto resulted. Blood Venous blood specimen / Unknown 09/04/2024 9:05 AM EDT 09/04/2024 9:30 AM EDT Jose Pedroza MD LAB BLOOD ORDERABLES Final R esult Performing Organization Address [facility] Co de Phone Number [facility] [address] [place] [address] * XR Panorex (08/29/2024 3:26 PM EDT) [...] the final edited report. Drafted by Rinku Nciole MD on 08/29/2024 3:42 PM Final report signed by Liss Aiken MD on 08/29/2024 3:56 PM us Iglesia Prasad MD IMG XR PROCEDURES Final Resu lt * (ABNORMAL) Potassium (08/27/2024 9:04 AM EDT) Potassium, Plasma 5.6(H) 3.6 - 4.9 mmol/L 08/27/2024 9:28 AM EDT [facility] Comment:Hemolyzed, result ma y be falsely increased. Blood Venous blood specimen / Unknown Venipuncture / Unknown 08/27/2024 9:04 AM EDT 08/27/2024 9:10 AM EDT us Iglesia Prasad MD LAB BLOOD ORDERABLES Final R esult Performing Organization Address City/[facility]/ZIP Co de Phone Number [facility] [address] [place] [address] * HIV 1 & 2 Antibody/Antigen Screen (08/01/2024 9:13 AM EDT) HIV 1 & 2 Antibody/Antigen Screen Non Reactive Non Reactive 08/01/2024 10:11 AM EDT [facility] Comment:Screening for HIV 1 & 2 antibodies, and P24 antigen is NONREACTIVE. No confirmatory testing is required. 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 Yes Care Teams Extras Casting Director Relationship Specialty Start Date End Date Pcp, Sumaya [address] [place] [address] PCP - General Family Medicine 07/26/21
--- OUTSIDE RECORDS SUMMARY | 2024-11-26 19:47 | XMS_ITS ---
Author Organization [facility] Address [address] [id number] Care Team Providers Care Applications Support Lead Name Role Phone Pcp, No Primary Care Provider Unavailabl e Hepatitis C Program Status:Active (Active) Start date:03/15/2022 Enrollment date:03/15/2022 Enrollment reason:HCV Continued Care and Services Coordination
--- OUTSIDE RECORDS SUMMARY | 2024-11-26 19:47 | XMS_ITS | Encounter Summary ---
Author Organization Healthcare Address [address] [place] [address] Care Team Providers Care Director News Name Role Phone Pcp, No Primary Care Provider UnavailAliya Garzon SOLVENT PLANT OPERATOR Unavailable UnavailMichaela Nolan CURING FINISHER Unavailable Unavailable Carole Avila SOLVENT PLANT OPERATOR Unavailable Unavailable Encounter Details Date Type Department Care Team (Late st Contact Info) Description 04/06/2022 Lab Requisition [facility] [address] [place] [address] Emma Obrien MD [address] [place] [address] Encounter for general adult medical [...] drink first t terri in the morning (EYE-SLICE CUTTING MACHINE OPERATOR HELPER) to steady your nerves or [...] Description 12/02/2024 2:20 PM EDT Office Visit [facility] Medicine Specialties [address] [place] [address] Cory Archer MD [address] [place] [address] 12/30/2024 3:40 PM EST Office Visit [facility] [place] [facility] [address] [place] [address] Daniel Parsons MD [address] [place] [address] 01/13/2025 1:10 PM EST Appointment [facility] [address] [place] [address] Shaq Choi MD [address] [place] [address] documented as of this encounter Procedures Procedure Name Priority Date/Time Associated Diagnosis Comments CASSANDRA AURIS SURVEILLANCE BY PCR Routine 04/06/2022 1:18 PM EST Encounter for general adult medical examination without abnormal findings documented in this encounter Results * Cassandra auris Surveillance by PCR (04/06/2022 1:18 PM EST) Cassandra auris PCR Result Not Detected Not Detected 04/10/2022 10:21 AM EST [facility] Swab (Axilla and Groin) 04/06/2022 1:18 PM EST 04/06/2022 1:26 PM EST Narrative [facility] - 04/10/2022 10:21 AM EST This PCR assay was developed and its performance characteristics determined by [facility] as appropriate for clinical purposes. This assay has not been cleared or approved by the FDA, but is performed in a CLIA regulated laboratory that is qualified to perform high-complexity testing. This PCR assay was developed and its performance characteristics determined by [facility] as appropriate for clinical purposes. This assay has not been cleared or approved by the FDA, but is performed in a CLIA regulated laboratory that is qualified to perform high-complexity testing. us Emma Luz MD LAB MICROBIOLOGY - GENERAL ORDERABLES Final Result [facility] [address] [place] [address] documented in this encounter Visit Diagnoses Diagnosis [...] as of this encounter Care Teams Director News Relationship Specialty Start Date End Date Pcp, No [address] [place] [address] PCP - General Family Medicine 07/26/21 Aliya Grimaldo LPN VALUE-BASED TRANSFORMATION PROGRAM TCM Nurse Internal Medicine 04/25/22 05/25/22 Michaela Babb, [place] [address] Exploration Manager Arc Welder 03/15/22 05/21/24 Carole Avila LPN TCM Nurse 10/22/24 11/21/24 documented as of this encounter
--- OUTSIDE RECORDS SUMMARY | 2024-11-26 19:47 | XMS_ITS | Encounter Summary ---
Author Organization Healthcare Address [address] [place] [address] Care Team Providers Care Vehicle Damage Appraiser Name Role Phone Pcp, No Primary Care Provider Unavailabl Carole Ramsey LPN Unavailable Unavailable Encounter Details Date Type Department Care Team ([facility] st Contact Info) Description 11/07/2024 Telephone [facility] Met[facility] [address] [facility], [address] [place] [address] Emery Pastrana MD [address] [place] [address] Social History Tobacco Use Types Packs/Day Years [...] any clubs o r organizations such as faith groups, unions, fraternal or athletic groups, or [...] Never 07/31/2024 How often do you attend faith or anglican serv ices? Never 07/31/2024 Do you belong to any clubs o r organizations such as faith groups, unions, fraternal or athletic groups, or [...] Very hard 07/31/2024 [facility] - Occupational Stress Questionnaire Answer Date Recorded [...] were you homeless or living in a half-way (including now)? No 10/22/2024 [facility] Utilities Answer Date Recorded In the [...] drink first t terri in the morning (EYE-PLUMBER SUPERVISOR) to steady your nerves or to get rid of a hangover? 0 03/16/2022 CAGE Questionnaire Score 0 023 Sex and Gender Information Value Date Recorded Sex Assigned at Not on file Legal Sex Male 7:46 PM EDT Gender Identity Not on file Sexual Orientation Not on file documented as of this encounter Miscellaneous Notes * Telephone Encounter - Lashay Toledo - 11/07/2024 10:11 AM EDT Clinical Concern/Question Reason for Call: Please call [facility] about patient's medication Best contact number: Other: [phone] Optimal time of day to reach caller: ANYTIME Additional comments/information from caller: Patient seen in dialysis in [place] Note: Please do not reply to this message. Follow-up communication and further actions as a result of this message need to be communicated with the patient directly, if the patient is not active onMyChart. If the patient is active on MyChart, they will receive notification of the communication/outcome via [employer]. documented in this encounter Plan of Treatment Upcoming Encounters Date Type Department Care Team (Late st Contact Info) Description 12/02/2024 2:20 PM EDT Office Visit [facility] Medicine Specialties [address] [place] [address] Cory Archer MD [address] [place] [address] 12/30/2024 3:40 PM EST Office Visit [facility] [address] [place] [address] Daniel Parsons MD [address] [place] [address] 01/13/2025 1:10 PM EST Appointment [facility] [address] [place] [address] Shaq Choi MD [address] [place] [address] documented as of this encounter Goals Goal Patient Goal Type Associated Problems Recent Progress Patient-Stated? Author Autogenera elle Goal Care Plan Autogenerated Problem No Sergo Pedroza Autogenera elle Goal Care Plan Autogenerated Problem No Leisa Anaya, RN Autogenera elle Goal Care Plan Autogenerated Problem No Kai Ying, RN Autogenera elle Goal Care Plan Autogenerated [...] documented as of this encounter Care Teams Vehicle Damage Appraiser Relationship Specialty Start Date End Date Pcp, No [address] [place] [address] PCP - General Family Medicine 07/26/21 Carole Avila LPN TCM Nurse 10/22/24 11/21/24 documented as of this encounter
--- OUTSIDE RECORDS SUMMARY | 2024-11-26 19:47 | XMS_ITS | Encounter Summary ---
Author Organization Healthcare Address [address] [place] [address] Care Team Providers Care Rural Carrier Associate Name Role Phone Pcp, No Primary Care Provider Carole Bonner LPN Unavailable Unavailable Encounter Details Date Type Department Care Team (Late st Contact Info) Description 11/07/2024 Telephone [facility] Medicine Specialties [address] [place] [address] Rehana Ross, RN MEDICINE SPECIALTIES CLINIC Social [...] How often do you attend chur or congregation services? Patient unable to answer 05/07/2024 Do you belong to any clubs o r organizations such as christianity groups, unions, fraternal or athletic groups, or [...] Never 07/31/2024 How often do you attend christianity or congregation serv ices? Never 07/31/2024 Do you belong to any clubs o r organizations such as christianity groups, unions, fraternal or athletic groups, or [...] medical care, and heating? Very hard 07/31/2024 [facility] [place] [facility] - Occupational Stress [...] time in the past 12 m [facility], were you homeless or living in a chcf (including now)? No 10/22/2024 [facility] Utilities Answer Date Recorded In the [...] drink first t terri in the morning (EYE-RESEARCH & ANALYTICS MANAGER) to steady your nerves or to [...] Description 12/02/2024 2:20 PM EDT Office Visit [facility] Specialties [address] [place] [address] Cory Archer MD [address] [place] [address] 12/30/2024 3:40 PM EST Office Visit [facility] [place] [facility] [address] [facility] [place] [address] Daniel Parsons MD [address] [place] [address] 01/13/2025 1:10 PM EST Appointment [facility] [address] [place] [address] Shaq Choi MD [address] [facility] [address] [place] [address] documented as of this encounter Goals Goal Patient Goal Type Associated Problems Recent Progress Patient-Stated? Author Autogenera elle Goal Care Plan Autogenerated Problem No Yovany Sergo Porras Autogenera elle Goal Care Plan Autogenerated Problem [...] documented as of this encounter Care Teams Rural Carrier Associate Relationship Specialty Start Date End Date Pcp, No [address] [place] [address] PCP - General Family Medicine 07/26/21 Carole Avila LPN TCM Nurse 10/22/24 11/21/24 documented as of this encounter
--- OUTSIDE RECORDS SUMMARY | 2024-11-26 19:48 | XMS_ITS | Encounter Summary ---
Author Organization Healthcare Address [address] [place] [address] Care Team Providers Care Show Dog Trainer Name Role Phone Pcp, No Primary Care Provider Unavailabl e Encounter Details Date Type Department Care Team (Late st Contact Info) Description 09/29/2024 Telephone [facility] Medicine Specialties [address] [place] [address] Social History Tobacco Use Types [...] answer 05/07/2024 How often do you attend [facility] or yazdanism services? Patient unable to answer 05/07/2024 Do you belong to any clubs o r organizations such as congregational groups, unions, fraternal or athletic groups, or [...] Never 07/31/2024 How often do you attend congregational or yazdanism serv ices? Never 07/31/2024 Do you belong to any clubs o r organizations such as congregational groups, unions, fraternal or athletic groups, or [...] care, and heating? Very hard 07/31/2024 [facility] - Occupational Stress Questionnaire Answer Date [...] any time in the past 12 m [facility], were you homeless or living in a half-way (including now)? Yes 07/31/2024 CAGE ASSESSMENT Answer [...] drink first t terri in the morning (EYE-BOAT DETAILER) to steady your nerves or to get [...] RS today's appointment Best contact number: Other: [phone] Optimal time of day to reach caller: ANYTIME Additional comments/information from caller: None Note: Please do not reply to this message. Follow-up communication and further actions as a result of this message need to be communicated with the patient directly, if the patient is not active onMyChart. If the patient is active on MyChart, they will receive notification of the communication/outcome via [employer]. documented in this encounter Plan of Treatment Upcoming Encounters Date Type Department Care Team (Late st Contact Info) Description 12/02/2024 2:20 PM EDT Office Visit [facility] Medicine Specialties [address] [place] [address] Cory Archer MD [address] [place] [address] 12/30/2024 3:40 PM EST Office Visit [facility] [place] [facility] [address] [facility] [place] [address] Daniel Parsons MD [address] [place] [address] 01/13/2025 1:10 PM EST Appointment [facility] [address] [place] [address] Shaq Choi MD [address] [place] [address] documented as of this encounter [...] documented as of this encounter Care Teams Show Dog Trainer Relationship Specialty Start Date End Date Pcp, No [address] [place] [address] PCP - General Family Medicine 07/26/21 documented as of this encounter
--- OUTSIDE RECORDS SUMMARY | 2024-11-26 19:48 | XMS_ITS | Encounter Summary ---
Author Organization Healthcare Address [address] [place] [address] Care Team Providers Care Driver/Refuse Collector Name Role Phone Pcp, No Primary Care Provider Unavailabl e Encounter Details Date Type Department Care Team (Late st Contact Info) Description 10/10/2024 Patient Outreach [facility] Medicine Specialties [address] [place] [address] Deirdre Gandara Social History Tobacco Use Types [...] 05/07/2024 How often do you attend [facility] or church services? Patient unable to answer 05/07/2024 Do [...] often do you attend oriental orthodox or church serv ices? Never 07/31/2024 Do you belong [...] medical care, and heating? Very hard 07/31/2024 [facility] [place] of Occupat ional Health - Occupational Stress [...] drink first t terri in the morning (EYE-TRAFFIC COORDINATOR) to steady your nerves or to [...] provided [facility] 10/13/24 8am appt reminder on -[id number]. documented in this encounter Plan of Treatment Upcoming Encounters Date Type Department Care Team (Late st Contact Info) Description 12/02/2024 2:20 PM EDT Office Visit [place] [facility] Medicine Specialties [address] [place] [address] Cory Archer MD [address] [place] [address] 12/30/2024 3:40 PM EST Office Visit [facility] [place] [address] [facility] [place] [address] Daniel Parsons MD [address] [place] [address] 01/13/2025 1:10 PM EST Appointment [facility] [address] [place] [address] Shaq Choi MD [address] [facility] [address] [place] [address] documented as of this encounter Goals Goal Patient Goal Type Associated Problems Recent Progress Patient-Stated? Author Autogenerat ed Goal Care Plan Autogenerated Problem No Sergo Pedroza Autogenerat ed Goal Care Plan Autogenerated Problem No Lesia Anaya RN documented as of this encounter [...] documented as of this encounter Care Teams Driver/Refuse Collector Relationship Specialty Start Date End Date Pcp, No [address] [place] [address] PCP - General Family Medicine 07/26/21 documented as of this encounter
--- OUTSIDE RECORDS SUMMARY | 2024-11-26 19:48 | XMS_ITS | Encounter Summary ---
Author Organization [facility] Address [address] [place] [address] Care Team Providers Care Maintenance Analyst Name Role Phone Pcp, No Primary Care Provider Unavailabl e Encounter Details Date Type Department Care Team (Late st Contact Info) Description 10/12/2024 Orders Only External Location [address] [place] [address] Provider, External Social History Tobacco Use Types [...] do you attend [facility] or yazidi services? Patient unable to answer 05/07/2024 Do [...] How often do you attend orthodoxy or yazidi serv ices? Never 07/31/2024 Do you belong [...] hard 07/31/2024 [facility] [place] of Occupat ional [facility] - Occupational Stress Questionnaire Answer Date Recorded [...] time in the past 12 m [facility], were you homeless or living in a snf (including now)? Yes 10/13/2024 [facility] Utilities Answer Date Recorded In the [...] drink first t terri in the morning (EYE-ANTENNA INSTALLER) to steady your nerves or to get [...] Description 12/02/2024 2:20 PM EDT Office Visit [place] [facility] Medicine Specialties [address] [place] [address] Cory Archer MD [address] [place] [address] 12/30/2024 3:40 PM EST Office Visit [facility] [place] [address] [facility] [place] [address] Daniel Parsons MD [address] [place] [address] 01/13/2025 1:10 PM EST Appointment [facility] [address] [place] [address] Shaq Choi MD [address] [place] [address] documented as of this encounter Goals Goal [...] as of this encounter Care Teams Maintenance Analyst Relationship Specialty Start Date End Date Pcp, No [address] [place] [address] PCP - General Family Medicine 07/26/21 documented as of this encounter
--- OUTSIDE RECORDS SUMMARY | 2024-11-26 19:48 | XMS_ITS | Encounter Summary ---
Author Organization Healthcare Address [address] [place] [address] Care Team Providers Care Admitting Officer Name Role Phone Pcp, No Primary Care Provider Unavailabl e Encounter Details Date Type Department Care Team (Late st Contact Info) Description 09/30/2024 Patient Outreach [facility] Medicine Specialties [address] [place] [address] Tracee Negrete Social History Tobacco Use Types [...] answer 05/07/2024 How often do you attend [facility] or methodist services? Patient unable to answer 05/07/2024 Do [...] How often do you attend evangelical or methodist serv ices? Never 07/31/2024 Do you belong [...] and heating? Very hard 07/31/2024 [facility] [place] of Occupat ional Health - Occupational Stress [...] drink first t terri in the morning (EYE-IMMIGRATION CASE WORKER) to steady your nerves or to [...] Visit [place] [facility] Medicine Specialties [address] [place] [address] Cory Archer MD [address] [place] [address] 12/30/2024 3:40 PM EST Office Visit [facility] [place] [address] [facility] [place] [address] Daniel Parsons MD [address] [place] [address] 01/13/2025 1:10 PM EST Appointment [facility] [address] [place] [address] Shaq Choi MD [address] [place] [address] documented as of this encounter Goals Goal [...] documented as of this encounter Care Teams Admitting Officer Relationship Specialty Start Date End Date Pcp, No [address] [place] [address] PCP - General Family Medicine 07/26/21 documented as of this encounter
--- OUTSIDE RECORDS SUMMARY | 2024-11-26 19:49 | XMS_ITS | Encounter Summary ---
Author Organization [facility] Address [address] [place] [address] Care Team Providers Care Mill Dresser Name Role Phone Pcp, No Primary Care Provider Unavailabl e Encounter Details Date Type Department Care Team (Late st Contact Info) Description 10/12/2024 Orders Only External Location [address] [place] [address] Provider, External Social History Tobacco Use Types [...] attend [facility] or baptist services? Patient unable to [...] How often do you attend orthodox or baptist serv ices? Never 07/31/2024 Do [...] medical care, and heating? Very hard 07/31/2024 [facility] [place] of Occupat ional [facility] - Occupational Stress Questionnaire Answer Date [...] in a fci (including now)? Yes 10/13/2024 [facility] Utilities Answer Date Recorded In the [...] drink first t terri in the morning (EYE-CONTROL AND RECOVERY SPECIAL TACTICS) to steady your nerves or to get [...] Description 12/02/2024 2:20 PM EDT Office Visit [place] [facility] Medicine Specialties [address] [place] [address] Cory Archer MD [address] [place] [address] 12/30/2024 3:40 PM EST Office Visit [facility] [place] [address] [facility] [place] [address] Daniel Parsons MD [address] [place] [address] 01/13/2025 1:10 PM EST Appointment [facility] [address] [place] [address] Shaq Choi MD [address] [place] [address] documented as of this encounter Goals Goal [...] documented as of this encounter Care Teams Mill Dresser Relationship Specialty Start Date End Date Pcp, No [address] [place] [address] PCP - General Family Medicine 07/26/21 documented as of this encounter
--- OUTSIDE RECORDS SUMMARY | 2024-11-26 19:49 | XMS_ITS | Encounter Summary ---
Author Organization [facility] Address [address] [place] [address] Care Team Providers Care Resource Forester Name Role Phone Pcp, No Primary Care [...] do you attend [facility] or pentecostalism services? Patient unable to [...] How often do you attend gnosticist or pentecostalism serv ices? Never 07/31/2024 Do [...] care, and heating? Very hard 07/31/2024 [facility] of Occupat ional Health - [...] in the past 12 m [facility], were you homeless or living in a senior care (including now)? Yes 10/13/2024 [facility] Utilities Answer Date Recorded In the past 12 months has th e [employer], gas, oil, or water [employer] threatened to shut off services in your [...] drink first t terri in the morning (EYE-PROJECT ADMINISTRATOR) to steady your nerves or to [...] Visit [place] Clinic Medicine Specialties [address] [place] [address] Cory Archer MD 800 [place] [address] 12/30/2024 3:40 PM EST Office Visit [facility] [place] [address] [facility] [place] [address] Daniel Parsons MD [address] [place] [address] 01/13/2025 1:10 PM EST Appointment [facility] [address] [place] [address] Shaq Choi MD [address] [place] [address] documented as of this encounter Goals Goal Patient Goal Type Associated Problems Recent Progress Patient-Stated? Author Autogenerat ed Goal Care Plan Autogenerated Problem No Sergo Pedroza Autogenerat ed Goal Care Plan Autogenerated Problem No Leisa Anaya, RN Autogenerat ed Goal Care Plan Autogenerated Problem No Kai Ying RN documented as of this encounter Visit [...] documented as of this encounter Care Teams Resource Forester Relationship Specialty Start Date End Date Pcp, [place] [address] PCP - General Family Medicine 07/26/21 documented as of this encounter
--- OUTSIDE RECORDS SUMMARY | 2024-11-26 19:49 | XMS_ITS | Encounter Summary ---
Author Organization [facility] Address [address] [place] [address] Care Team Providers Care Asphalt Paving Superintendent Name Role Phone Pcp, No Primary Care [...] answer 05/07/2024 How often do you attend [facility] or spiritism services? Patient unable to answer 05/07/2024 Do [...] How often do you attend anabaptist or spiritism serv ices? Never 07/31/2024 Do you belong [...] care, and heating? Very hard 07/31/2024 [facility] of Occupat ional Health - Occupational Stress [...] any time in the past 12 m [facility], were you homeless or living in a mcc (including now)? Yes 10/13/2024 [facility] Utilities Answer Date Recorded In the past 12 months has th e [employer], gas, oil, or water [employer] threatened to shut off services in your [...] drink first t terri in the morning (EYE-MIDDLE SCHOOL MATH TEACHER) to steady your nerves or to get [...] Description 12/02/2024 2:20 PM EDT Office Visit [place] [facility] Medicine Specialties [address] [place] [address] Cory Archer MD [address] [place] [address] 12/30/2024 3:40 PM EST Office Visit [facility] [place] [address] [facility] [place] [address] Daniel Parsons MD [address] [place] [address] 01/13/2025 1:10 PM EST Appointment [facility] [address] [place] [address] Shaq Choi MD [address] [place] [address] documented as of this encounter [...] documented as of this encounter Care Teams Asphalt Paving Superintendent Relationship Specialty Start Date End Date Pcp, Sumaya [address] [place] [address] PCP - General Family Medicine 07/26/21 documented as of this encounter
--- OUTSIDE RECORDS SUMMARY | 2024-11-26 19:49 | XMS_ITS | Encounter Summary ---
Author Organization Healthcare Address [address] [place] [address] Care Team Providers Care Superintendent Factory Name Role Phone Pcp, No Primary Care Provider Unavailabl e Encounter Details Date Type Department Care Team (Late st Contact Info) Description 10/14/2024 Patient Outreach [facility] Medicine Specialties [address] [place] [address] Deirdre Gandara Social History Tobacco Use Types [...] 05/07/2024 How often do you attend [facility] or judaism services? Patient unable to answer 05/07/2024 Do [...] How often do you attend gnosticism or judaism serv ices? Never 07/31/2024 Do you belong [...] medical care, and heating? Very hard 07/31/2024 [facility] [place] of Occupat ional Health - Occupational Stress [...] in a fci (including now)? Yes 10/13/2024 [facility] Utilities Answer Date Recorded In [...] drink first t terri in the morning (EYE-CATALYST OPERATOR) to steady your nerves or to [...] Visit [place] [facility] Medicine Specialties [address] [place] [address] Cory Archer MD [address] [place] [address] 12/30/2024 3:40 PM EST Office Visit [facility] [place] [address] [facility] [place] [address] Daniel Parsons MD [address] [place] [address] 01/13/2025 1:10 PM EST Appointment [facility] [address] [place] [address] Shaq Choi MD [address] [place] [address] (work) documented as of this encounter Goals Goal [...] documented as of this encounter Care Teams Superintendent Factory Relationship Specialty Start Date End Date Pcp, No [address] [place] [address] PCP - General Family Medicine 07/26/21 documented as of this encounter
--- OUTSIDE RECORDS SUMMARY | 2024-11-26 19:49 | XMS_ITS | Encounter Summary ---
Author Organization Healthcare Address [address] [place] [address] Care Team Providers Care Manager Photo Name Role Phone Pcp, No Primary Care Provider UnavailCarole Tim LPN Unavailable Unavailable Encounter Details Date Type Department Care Team (Late st Contact Info) Description 08/04/2024 Lab Requisition [facility] [address] [place] [address] Popeye Fernando MD [address] [place] [address] Encounter for general adult medical examination without [...] How often do you attend chur or mormonism services? Patient unable to answer [...] How often do you attend jainism or mormonism serv ices? Never 07/31/2024 Do [...] [facility] - Occupational Stress Questionnaire Answer Date [...] drink first t terri in the morning (EYE-FURNITURE DECALS INSPECTOR) to steady your nerves or to get rid of a hangover? 0 03/16/2022 CAGE Questionnaire Score 0 023 Utilities Answer Date Recorded In the past 12 months has e [employer], gas, oil, or water [employer] threatened to shut off services in your [...] Visit [place] [facility] Medicine Specialties [address] [place] [address] Cory Archer MD [address] [place] [address] 12/30/2024 3:40 PM EST Office Visit [facility] [place] [address] [facility] [place] [address] Daniel Parsons MD [address] [place] [address] 01/13/2025 1:10 PM EST Appointment [facility] [address] [place] [address] Shaq Choi MD [address] [place] [address] documented as of this encounter [...] ant Staphylococcus aureus(AA) 08/06/2024 7:10 AM EDT [facility] Comment:Previously isolated, still present in culture. Swab (Nares and Annetta Rectal) 08/04/2024 5:45 PM EDT 08/04/2024 6:14 PM EDT Narrative [facility] - 08/06/2024 7:10 AM EDT This test was developed and its performance characteristics determined by the [facility]. Although the media is FDA-approved, it is not FDA-approved for all specimen types submitted. The FDA has determined that such clearance or approval is not necessary. This test is used for surveillance purposes. It should not be regarded as investigational or for research. The [facility] is certified under the Clinical Laboratory Improvement Amendments of 1988 (CLIA-88) as qualified to perform high complexity clinical laboratory testing. Popeye Fernando MD LAB MICROBIOLOGY - GEN ERAL ORDERABLES Final Result [facility] [address] [place] [address] documented in this encounter Visit Diagnoses Diagnosis [...] as of this encounter Care Teams Manager Photo Relationship Specialty Start Date End Date Pcp, [place] [address] PCP - General Family Medicine 07/26/21 Carole Avila LPN TCM Nurse 10/22/24 11/21/24 documented as of this encounter
--- OUTSIDE RECORDS SUMMARY | 2024-11-26 19:49 | XMS_ITS | Encounter Summary ---
Author Organization Healthcare Address [address] [place] [address] Care Team Providers Care Probation Agent Name Role Phone Pcp, No Primary Care Provider Unavailabl e Encounter Details Date Type Department Care Team (Late st Contact Info) Description 11/22/2024 Orders Only Professional [facility] Center Nephrology, Bone & Mineral Metabolism [address] [facility] [address] [place] [address] Emery Pastrana MD [address] [place] [address] Social History Tobacco Use Types [...] How often do you attend advent or rastafarian serv ices? Never 07/31/2024 Do [...] medical care, and heating? Very hard 07/31/2024 [facility] [place] of Occupat ional [facility] - Occupational Stress Questionnaire Answer Date [...] time in the past [address] [facility], were you homeless or living in a retirement (including now)? No 10/22/2024 [facility] Utilities Answer Date Recorded In [...] drink first t terri in the morning (EYE-MOBILE EQUIPMENT SERVICER) to steady your nerves or to get [...] Visit [place] Clinic Medicine Specialties [address] [place] [address] Cory Archer MD [address] [place] [address] 12/30/2024 3:40 PM EST Office Visit [facility] [place] [address] [facility] [place] [address] Daniel Parsons MD [address] [place] [address] 01/13/2025 1:10 PM EST Appointment [facility] [address] [place] [address] Shaq Choi MD [address] [place] [address] documented as of this encounter Goals Goal Patient Goal Type Associated Problems Recent Progress Patient-Stated? Author Autogenera elle Goal Care Plan Autogenerated Problem No Sergo Pedroza Autoadolfo almeida Goal Care Plan Autogenerated Problem No Leisa [...] documented as of this encounter Care Teams Probation Agent Relationship Specialty Start Date End Date Pcp, No [address] [place] [address] PCP - General Family Medicine 07/26/21 documented as of this encounter
--- OUTSIDE RECORDS SUMMARY | 2024-11-26 19:49 | XMS_ITS | Encounter Summary ---
Author Organization [facility] Address [address] [place] [address] Care Team Providers Care Assembler Unit Name Role Phone Pcp, No Primary Care [...] often do you attend [facility] or tenriism services? Patient unable to answer 05/07/2024 Do you belong to any clubs o r organizations such as jehovah's witness groups, unions, fraternal or athletic groups, or [...] Never 07/31/2024 How often do you attend jehovah's witness or tenriism serv ices? Never 07/31/2024 Do you belong to any clubs o r organizations such as jehovah's witness groups, unions, fraternal or athletic groups, or [...] medical care, and heating? Very hard 07/31/2024 [facility] of Occupat ional Health - Occupational [...] any time in the past 12 m [facility], were you homeless or living in a skilled nursing (including now)? Yes 10/13/2024 [facility] Utilities Answer Date Recorded In the past 12 months has th e [employer], gas, oil, or water [email or web address] threatened to shut off services in your [...] drink first t terri in the morning (EYE-SWINE EXTENSION FIELD SPECIALIST) to steady your nerves or to [...] Visit [place] [facility]ties [address] [place] [address] Cory Archer MD [address] [place] [address] 12/30/2024 3:40 PM EST Office Visit [facility] [place] [address] [facility] [place] [address] Daniel Parsons MD [address] [place] [address] 01/13/2025 1:10 PM EST Appointment [facility] [address] [place] [address] Shaq Choi MD [address] [place] [address] documented as of this encounter Goals Goal Patient Goal Type Associated Problems Recent Progress Patient-Stated? Author Autogenerat ed Goal Care Plan Autogenerated Problem No Sergo Pedroza Autogenerat ed Goal Care Plan Autogenerated Problem No eLisa Anaya RN documented as of this encounter [...] documented as of this encounter Care Teams Assembler Unit Relationship Specialty Start Date End Date Pcp, No [address] [place] [address] PCP - General Family Medicine 07/26/21 documented as of this encounter
--- NOTE | 2024-11-26 20:14 | CT_ITS ---
PROCEDURE INFORMATION: Exam: CT Abdomen And Pelvis Without Contrast Exam date and time: 11/26/2024 8:29 PM Age: 44 years old Clinical indication: Abdominal pain; Additional info: Diffuse abd pain TECHNIQUE: Imaging protocol: Computed tomography of the abdomen and pelvis without contrast. Radiation optimization: All CT scans at this facility use at least one of these dose optimization techniques: automated exposure control; mA and/or kV adjustment per patient size (includes targeted exams where dose is matched to clinical indication); or iterative reconstruction. COMPARISON: CT ANGIO ABDOMEN PELVIS 10/12/2024 4:50 PM FINDINGS: Pleural spaces: Small left pleural effusion. Liver: Normal. No mass. Gallbladder and biliary ducts: Normal. No calcified stones. No ductal dilation. Pancreas: Normal. No ductal dilation. Spleen: Normal. No splenomegaly. Adrenal glands: Normal. No mass. Kidneys and ureters: Moderate renal cortical atrophy. Stomach and bowel: Unremarkable. No obstruction. No mucosal thickening. Appendix: No evidence of appendicitis. Intraperitoneal space: Moderate abdominal ascites. Vasculature: Diffuse mild calcification of the visceral arteries. Lymph nodes: Unremarkable. No enlarged lymph nodes. Urinary bladder: Unremarkable as visualized. Reproductive: Unremarkable as visualized. Bones/joints: Unremarkable. No acute fracture. Soft tissues: Unremarkable. IMPRESSION: 1. Moderate abdominal ascites. 2. Moderate renal cortical atrophy. Suspicious for medical renal disease. 3. Small left pleural effusion.
--- NOTE | 2024-11-26 20:16 | XR_ITS ---
PROCEDURE INFORMATION: Exam: XR Chest Exam date and time: 11/26/2024 8:24 PM Age: 44 years old Clinical indication: Dyspnea TECHNIQUE: Imaging protocol: Radiologic exam of the chest. Views: 1 view. COMPARISON: CT ANGIO CHEST PE PROTOCOL 10/12/2024 4:50 PM FINDINGS: Lungs: Bibasilar atelectasis. No significant edema. Pleural spaces: Unremarkable. No pleural effusion. No pneumothorax. Heart/Mediastinum: Unremarkable. No cardiomegaly. Bones/joints: Unremarkable. IMPRESSION: No acute findings.
--- NOTE | 2024-11-26 20:18 | HMH.EDGENADL ---
Discharge Plan Disposition Patient Disposition: Xfer Other Prescriptions Prescriptions: No Action buprenorphine-naloxone 8-2 mg tablet, sublingual 2 tab sublingual DAILY Patient Comments: DISSOLVE 2 TABLETS UNDER THE TONGUE ONCE DAILY sevelamer carbonate 800 mg tablet 800 mg PO TID Patient Comments: TAKE 1 TABLET BY MOUTH THREE TIMES A DAY WITH MEALS carvedilol 3.125 mg tablet 3.125 mg PO BID Qty: 60 2RF Rx Instructions: must administer with a meal/food lisinopril 20 mg tablet 20 mg PO DAILY Qty: 30 0RF methocarbamol 500 mg tablet 500 mg PO TID Qty: 90 0RF trazodone 100 mg tablet 100 mg PO DAILY Qty: 30 0RF pantoprazole 40 mg tablet,delayed release (DR/EC) 40 mg PO DAILY Qty: 30 0RF Referrals Follow up/Referrals: Provider,Referral, MD [Primary Care Provider, Medical] - See instructions Clinical Impressions Clinical Impression: Abdominal pain, End-stage renal disease (ESRD), Ascites, Acute dyspnea, Pleural effusion, Acute pancreatitis Instructions Patient Instructions: DI for Acute Abdominal Pain Print Language Print Language: Amharic Discharge ED Provider: Lashell Marrero General Adult HPI General Chief complaint: Abdominal Pain Stated complaint: Chest Pain Time Seen by Provider: 11/26/24 19:53 Mode of Arrival: Wheelchair Source of Information: Spouse Description of Symptoms (Recalled from ER Triage Doc. by RN): abdominal pain and chest pain i think I need a pericentesis History of Present Illness HPI narrative: Patient is a 44-year-old presenting with multiple complaints stating he just does not feel good. Primarily states that he is having significant diffuse abdominal pain and difficulty breathing. States he is breathing rapidly and having a hard time catching a full breath. Last time that he presented like this he states that he was diagnosed first with heart failure liver failure and kidney failure ultimately started on dialysis. He has a permacath in his right chest states has been dialyzing Sunday and has not missed any dialysis. Has felt warm but has not had an objective fever. States he is compliant with [facility] in [place] who are his kidney providers. Related Data Home Medications ?Medication ?Instructions ?Recorded ?Confirmed buprenorphine 8 mg-naloxone 2 mg 2 tab sublingual DAILY 11/21/24 11/21/24 sublingual tablet sevelamer carbonate 800 mg tablet 800 mg PO TID 11/21/24 11/21/24 Previous Rx's ?Medication ?Instructions ?Recorded carvedilol 3.125 mg tablet 3.125 mg PO BID #60 tabs 11/21/24 lisinopril 20 mg tablet 20 mg PO DAILY #30 tabs 11/21/24 methocarbamol 500 mg tablet 500 mg PO TID #90 tabs 11/21/24 pantoprazole 40 mg tablet,delayed 40 mg PO DAILY #30 tabs 11/21/24 release trazodone 100 mg tablet 100 mg PO DAILY #30 tabs 11/21/24 Allergies Allergy/AdvReac Type Severity Reaction Status Date / Time Erythromycin Allergy Unknown NA-NAUSEA/V Uncoded 01/23/17 15:32 OMITING PFSH PFSH Disclaimer: The information contained in this section may have been updated after the patient was seen, as this information can be updated by other users. Medical History (Updated 11/26/24 @ 21:34 by Lashell Marrero MD) GERD (gastroesophageal reflux disease) Liver failure Heart failure Hypertension CKD (chronic kidney disease) stage 4, GFR 15-29 ml/min Surgical History (Updated 11/21/24 @ 11:23 by Casandra Carrero CMA) H/O endoscopy Social History (Updated 11/21/24 @ 11:24 by Casandra Carrero CMA) Smoking Status: Current every day smoker tobacco type: cigarettes packs per day: 1 smoking status start date: 17 yo alcohol intake: never substance use type: former substance user, crack/cocaine, heroin and opiates current occupational status: unemployed Travel in the last 8 weeks?: None Have you lived/traveled outside US in past 30 days?: No Contact w/someone who lives/traveled outside US past 30 days?: No Exposure to someone with infectious disease in past 14 days?: No Do you have a fever (greater than 100.4 F or 38 C)?: No Have you tested positive for COVID-19?: No Exposed to someone with COVID-19 in past 14 days?: No Do you have a sore throat?: No Do you have a cough?: No Do you have any weakness?: No Do you have any diarrhea?: No Are you experiencing any unusual bleeding?: No Do you have any muscle aches/pain?: No Do you have any abdominal pain?: No Are you experiencing loss of taste or smell?: No ROS Obtained: Yes All systems reviewed & no additional complaints except as documented Physical Exam General General appearance: alert and in no apparent distress Respiratory Respiratory exam: Present respiratory distress (Patient is tachypneic breathing about 30 times a minute oxygen saturation's are normal on room air diminished breath sounds bilaterally in the bases) Cardiovascular Cardiovascular exam: Present tachycardia Abdominal Exam Abdominal exam: Present distention (Very mildly distended no tense ascites he is diffusely tender no rebound or guarding) Neurological Exam Neurological exam: Present alert and oriented X3 Medical Decision Making Medical Records Screening: Per USPSTF and CDC recommendations, given the prevalence of disease in our region, it is our hospital?s policy to screen for HIV and viral Hepatitis for all patients aged 18 and over and those with ongoing risk factors. Christopher Inquiry Pt receiving controlled substance: No Vital Signs: 11/26/24 19:40 11/26/24 20:01 11/26/24 20:15 Temperature 98.3 F Temperature Source Oral Pulse Rate 124 H 117 H Pulse Rate [Right Brachial] 129 H Respiratory Rate 24 31 H 19 Blood Pressure 175/118 H 181/112 H Blood Pressure [Right Arm] 195/124 H Blood Pressure Mean [Right Arm] 147 02 Sat by Pulse Oximetry 97 98 97 Oxygen Delivery Method Room Air 11/26/24 20:30 11/26/24 20:45 Temperature Temperature Source Pulse Rate 123 H 109 H Pulse Rate [Right Brachial] Respiratory Rate 18 24 Blood Pressure 189/124 H 174/122 H Blood Pressure [Right Arm] Blood Pressure Mean [Right Arm] 02 Sat by Pulse Oximetry 97 98 Oxygen Delivery Method Lab Data Lab results reviewed: Yes I reviewed the patient's lab results. Lab Results 11/26/24 19:41: WBC 8.6, RBC 4.36 L, Hgb 12.1 L, Hct 39.0 L, MCV 89.4, MCH 27.8, MCHC 31.0 L, RDW 18.3 H, Plt Count 284, MPV 9.4, Neut % (Auto) 56.2, Lymph % (Auto) 29.2, [place] % (Auto) 10.5 H, Eos % (Auto) 3.2, Baso % (Auto) 0.7, Neut # (Auto) 4.8, Lymph # (Auto) 2.5, [place] # (Auto) 0.9, Eos # (Auto) 0.3, Baso # (Auto) 0.1, PT 11.1, INR 1.00, APTT 25.5, Sodium 140, Potassium 5.8 H, Chloride 101, Carbon Dioxide 24, Anion Gap 20.8 H, BUN 57 H, Creatinine 5.70 H, Estimated Creat Clear 16, Estimated GFR 11 L*, Est GFR ( Amer) 13 L*, Glucose 118 H, Calcium 8.3 L, Total Bilirubin 0.7, AST 30, ALT 24, Alkaline Phosphatase 150 H, Troponin I 0.08 H, NT-Pro-B Natriuret Pep 549658 H, Total Protein 7.7, Albumin 3.9, Globulin 3.8 H, Albumin/Globulin Ratio 1.0 L, Lipase 812 H 11/26/24 20:21: VBG pH 7.43 H, VBG pCO2 38.2, VBG HCO3 24.8, VBG Total CO2 26.0, VBG O2 Saturation 98.4 H, VBG Base Excess 0.5, VBG Lactic Acid 1.8 11/26/24 20:43: SARS-CoV-2 (PCR) Not detected, Influenza A Untype (PCR) Not detected, Influenza Type B (PCR) Not detected 11/26/24 19:41 11/26/24 19:41 Orders (Tests/Meds): ED MEDICATIONS Generic Name Dose Route Start Last Admin Trade Name Dmq PRN Reason Stop Dose Admin Hydromorphone HCl 0.5 mg 11/26/24 21:41 Hydromorphone 2mg/Ml Syringe IV 11/26/24 21:42 ONCE ONE Discontinued Medications Generic Name Dose Route Start Last Admin Trade Name Freq PRN Reason Stop Dose Admin Sodium Chloride 500 mls @ 999 mls/hr 11/26/24 20:14 11/26/24 21:38 Sod Chlor 0.9% 1000ml Bag IV 11/26/24 20:44 Infused .Q31M ONE Infusion Morphine Sulfate 4 mg 11/26/24 20:14 11/26/24 20:32 Morphine 4mg/Ml Syringe IV 11/26/24 20:15 4 mg ONCE ONE Administration Ondansetron HCl 4 mg 11/26/24 20:14 11/26/24 20:31 Ondansetron 4mg/2ml Vial IV 11/26/24 20:15 4 mg ONCE ONE Administration ORDERS Category Date Time Status CT abdomen pelvis wo con Stat Cat Scan 11/26/24 20:14 Taken CXR --portable [XR chest portable] Stat Exams 11/26/24 20:16 Taken POCUS Point of Care (ER Only) Stat Exams 11/26/24 20:03 Completed BNP [NT Pro Brain Natriuretic Pep.] Stat Lab 11/26/24 19:41 Completed Body Fluid: Cell Count w/ Diff Stat Lab 11/26/24 21:36 Received CBC w/Auto Diff [Complete Blood Count Auto Diff] Stat Lab 11/26/24 19:41 Completed CMP [Comprehensive Metabolic Panel] Stat Lab 11/26/24 19:41 Completed HIV Combo Routine Lab 11/26/24 19:41 Received Lactate Venous Stat Lab 11/26/24 20:24 Ordered Lipase Stat Lab 11/26/24 19:41 Completed PT/PTT Stat Lab 11/26/24 19:41 Completed Rapid PCR Covid and Flu A/B Stat Lab 11/26/24 20:43 Completed Trop I [Troponin I] Stat Lab 11/26/24 19:41 Completed Troponin I Q3H Lab 11/26/24 23:15 Ordered Troponin I Q3H Lab 11/27/24 02:15 Ordered Blood Culture Stat Micro 11/26/24 20:21 Received Body Fluid Cult & Gram Stain Stat Micro 11/26/24 21:36 Received Venous Blood Gas Stat RT 11/26/24 20:21 Results Medical Decision Narrative: Patient is a 44-year-old male with a history of heart failure liver failure kidney failure presents today with tachypnea and tachycardia and diffuse abdominal discomfort primarily I be concerned about SBP I did do a bedside ultrasound he does have moderate ascites but I will not be doing a large-volume paracentesis with what he what he presented with as he believes that this is the majority of his problem but I believe he may be septic as he is tachypneic and breathing as if he is acidotic. Differential also includes intra-abdominal pathologies that could be surgical noncontrasted CT scan will be ordered. I did a bedside ultrasound to look at his heart and his lungs his ejection fraction appears to be normal no significant right heart strain he does not have diffuse or extensive pulmonary edema or pleural effusions he does have bilateral small pleural effusions noted. Pneumonia or other infectious etiologies remain on the differential. I mildly concerned he may be bacteremic as well with this indwelling permacath. Reassessment 945 patient is vital signs improving after pain control. Chest x-ray was performed which I personally interpreted which shows nonspecific interstitial opacities most likely pulmonary edema but cannot rule out definitively infection. Patient shows no other signs or symptoms of sepsis at the moment. He does have small bilateral pleural effusions. With regards to his lab he does have some hyperkalemia at 5.8 there is no signs or symptoms of hyperkalemia on his EKG. Which was performed. He does have had sinus tachycardia. Patient does have a mild troponin elevation at 0.08 which is nonspecific in somebody who has an stage renal disease. BNP is nonspecifically elevated and not helpful. Of note patient does have a lipase of 812 upper limit of normal in our lab is around 300. Typically the diagnosis of acute pancreatitis is around 3 times upper limit of normal but patient is focally tender in his epigastric region and to have no alternative diagnosis at the moment. CT scan that was noncontrasted performed I personally interpreted shows moderate ascites but no other obvious abnormality including evidence of bowel obstruction or perforation. Diagnostic paracentesis has been performed fluid appeared to be normal in appearance. Patient will ultimately need to be transferred where there are dialysis capabilities with working diagnosis of acute pancreatitis. If paracentesis labs show concern for SBP will add Rocephin onto this. Attempting to call in [place] for transfer Procedures Paracentesis Time Out Performed: Yes Indication: Ascites Procedure: diagnostic paracentesis Location: RLQ Local Anesthetic: lidocaine 1% Amount of anesthesia used (mL): 8 Bedside Ultrasound Used: yes, real-time guidance (US used ) Preparation: sterile prep and drape Amount of fluid obtained (mL): 75 Fluid: cloudy Patient Tolerated Procedure: well Complications: none Miscellaneous Procedure Procedure Performed: Limited cardiac ultrasound Indication: Dyspnea Identified structures: The heart was visualized in the parasternal long axis, parastenal short axis, apical four chamber and subxyphiod views. The IVC was visualized in the short axis and long axis at its entry into the right atrium. Findings: Normal LVEF no pericardial effusion no severe right heart strain IVC is 2 cm with normal spiral phasic variation Impression: Unremarkable limited ultrasound of the heart Images were saved to permanent archive The study was technically adequate CPT: 94688-29 This study was performed by il, and I personally interpreted all images/videos. Based on my clinical judgement, these images were adequate and did not necessitate further imaging. Limited lung ultrasound A focused ultrasound exam of the pleural spaces was performed to evaluate for pneumothorax, pulmonary edema, pleural effusion and/or consolidation. The ultrasound was performed with the following indications, as noted in the H&P: Dyspnea Identified structures: Right and left thoracic cavities were examined. Findings: Lung sliding present throughout there are small bilateral pleural effusion Impression: Small bilateral pleural effusion Images were saved to permanent archive The study was technically adequate CPT 22222-58 This study was performed by il, and I personally interpreted all images/videos. Based on my clinical judgement, these images were adequate and did not necessitate further imaging. Limited abdominal ultrasound Indication abdominal discomfort in the setting of NSAID liver disease Findings diffuse ascites and moderate Images were saved Critical Care Critical Care Time Critical Care Time: Yes Attestation: On 11/26/24, the high probability of a clinically significant, sudden or life threatening deterioration of the following system(s) required my full and direct attention, intervention and personal management. The time I documented below is in addition to time spent performing reported procedures but includes the following listed in this critical care notation. Total Time Total Critical Care Time: 35
[2024-11-26 20:24] LABS: Hematocrit 39.0 % (42.0-52.0); Hemoglobin 12.1 g/dL (14.1-18.0); Immature Granulocytes % 0.2 %; Mean Corpuscular HGB Conc 31.0 g/dL (31.8-35.4); Mean Corpuscular Hemoglobin 27.8 pg (27.0-31.2); Mean Corpuscular Volume 89.4 fl (80-94); Nucleated Red Blood Cells % 0 %; Platelet Count 284 K/mm3 (142-424); Red Blood Count 4.36 M/mm3 (4.60-6.20); Red Cell Distribution Width-SD 60.0 fL; White Blood Count 8.6 K/mm3 (4.8-10.8)
[2024-11-26] MEDS: 0.9 % SODIUM CHLORIDE 1000ML 500 ML 999 ML IV (20:27)
[2024-11-26 20:28] LABS: Lactate Venous 1.8 mmol/L (0.4-2.0); VBG HCO3 24.8 mmol/L (23-30); VBG PCO2 38.2 mmol/L (35-51); VBG PH 7.43 mmol/L (7.31-7.41)
[2024-11-26] MEDS: ONDANSETRON 4MG/2ML VIAL 4 MG IV (20:31)
[2024-11-26 20:32] LABS: Activated Partial Thrombo Time 25.5 seconds (22.8-30.6); INR 1.00 (0.9-1.1); Prothrombin Time 11.1 seconds (10.1-12.5)
[2024-11-26] MEDS: MORPHINE 4MG/ML SYRINGE 4 MG IV (20:32)
[2024-11-26 20:35] LABS: Alanine Aminotransferase 24 U/L (12-78); Albumin Level 3.9 g/dl (3.5-5.0); Albumin/Globulin Ratio 1.0 (1.1-1.8); Alkaline Phosphatase 150 U/L (38-126); Anion Gap 20.8 mEq/L (5-15); Aspartate Amino Transferase 30 U/L (17-59); Bilirubin,Total 0.7 mg/dl (0.2-1.3); Blood Urea Nitrogen 57 mg/dl (9-20); Calcium 8.3 mg/dl (8.4-10.2); Carbon Dioxide 24 mmol/L (22.0-30.0); Chloride 101 mmol/L (98-107); Creatinine Clearance Estimated 16 mL/min (50-200); Estimated Glomerular Filt Rate 11 ml/min (>60); GFR (African American) 13 ML/MIN (>60); Globulin 3.8 g/dL (1.3-3.2); Glucose 118 mg/dl (74-100); Potassium 5.8 mmoL/L (3.5-5.1); Sodium 140 mmol/L (136-145); Total Protein,Serum 7.7 g/dl (6.3-8.2)
[2024-11-26 20:43] LABS: Creatinine,Serum 5.70 mg/dl (0.66-1.25)
[2024-11-26 20:44] LABS: Lipase 812 U/L (23-300)
[2024-11-26 20:46] LABS: Troponin I 0.08 ng/ml (0.00-0.034)
[2024-11-26 20:50] LABS: Coronavirus 19, PCR Not Detected (NotDetected); Influenza A, PCR Not Detected (NotDetected); Influenza B, PCR Not Detected (NotDetected)
[2024-11-26 21:06] LABS: NT Pro Brain Natriuretic Pep. 206000 pg/mL (0-125)
[2024-11-26] MEDS: HYDROMORPHONE 2MG/ML SYRINGE 0.5 MG IV (21:44)
--- NOTE | 2024-11-26 21:47 | PC.NURSE ---
Called [facility] for a transfer. stated they would call back
[2024-11-26 22:00] LABS: Source, Body Fld. Peritoneal Fluid
[2024-11-26 22:01] LABS: Appearance,Body Fld. Slightly hazy
[2024-11-26 22:04] LABS: RBC,Body Fluid < 2000 cells/uL (< 10 X 10^3); TNC,Body Fluid 513 cells/uL (< 1000); Volume,Body Fld. 70 mL
[2024-11-26 22:25] LABS: Mononuclear WBCs,Body Fluid 97 %; Polynuclear WBC,Body Fluid 3 %
--- NOTE | 2024-11-26 22:58 | PC.NURSE ---
Report given to Erica PAGE at [facility]
[2024-11-27] VITALS (16 sets, daily range): BP systolic 153–190; BP diastolic 108–141; PULSE 100–111; RESP 17–25; TEMP 36.9; O2SAT 95–99
[2024-11-27] MEDS: MORPHINE 4MG/ML SYRINGE 4 MG IV (00:12)
== END 2024-11-27 03:21 | disposition other institution (70) ==
PROVIDERS: Emergency Provider Student in an Organized Health Care Education/Training Program
DX: R06.02 Shortness of breath (principal); R10.84 Generalized abdominal pain; J90 Pleural effusion, not elsewhere classified; N18.6 End stage renal disease; R18.8 Other ascites; K85.90 Acute pancreatitis without necrosis or infection, unspecified; E87.5 Hyperkalemia; I12.0 Hypertensive chronic kidney disease with stage 5 chronic kidney disease or end stage renal disease; I11.0 Hypertensive heart disease with heart failure; I50.9 Heart failure, unspecified; F17.210 Nicotine dependence, cigarettes, uncomplicated; Z99.2 Dependence on renal dialysis
CPT/HCPCS: 49083; 71045; 74176; 80053; 82803; 83690; 83880; 84484; 85025; 85610; 85730; 87040; 87070; 87205; 87389; 87636; 89051; 93005; 96361; 96374; 96375; 96376; 99285; 99291; J1171; J2270; J2405; J7030

== ENCOUNTER 2025-01-09 20:26 | Emergency (ER) | payer OTHER, SELFPAY ==
--- NOTE | 2025-01-09 20:24 | ECG_ITS ---
APPROVED REPORT Exam: Resting ECG HR:100 bpm ECG Measurements Heart Rate 100 AXES CA 124 P 50 QRSd 81 QRS 0 QT 367 T 79 QTc 424 Conclusion Normal sinus rhythm Normal axis Normal intervals No STEMI Electronically signed by : Franco Lechuga, 01/09/2025 23:29:22
[2025-01-09 20:27] VITALS: BP 179/118; PULSE 104; RESP 16; TEMP 37.1; O2SAT 97; BMI 21.7
--- OUTSIDE RECORDS SUMMARY | 2025-01-09 20:33 | XMS_ITS | Encounter Summary ---
Author Organization [facility] Address [address] [place] [address] Care Team Providers Care Black Off Worker Name Role Phone Pcp, No Primary Care Provider Unavailabl Carole Ramsey LPN Unavailable Unavailable Encounter Details Date Type Department Care Team ([facility] st Contact Info) Description 11/07/2024 Telephone [facility] [address], [address] [place] [address] Emery Pastrana MD [address] [place] [address] Social History Tobacco Use Types Packs/Day Years Used Date Smoking Tobacco: Every Day Cigarettes 1 17.9 Started: 2007 Passive Smoke Exposure: Past Smokeless [...] How often do you attend [facility] or cheondoism services? Patient unable to answer 05/07/2024 Do [...] How often do you attend gnosticism or cheondoism serv ices? Never 07/31/2024 Do you belong [...] medical care, and heating? Very hard 07/31/2024 [facility] [place] of Occupat ional [facility] - Occupational Stress Questionnaire Answer Date Recorded [...] any time in the past 12 m [facility], were you homeless or living in a prison (including now)? No 10/22/2024 [facility] Utilities Answer Date Recorded In [...] drink first t terri in the morning (EYE-PHYSICIST NUCLEAR) to steady your nerves or to get [...] Clinical Concern/Question Reason for Call: Please call [facility] about patient's medication Best contact number: Other: [phone] Optimal time of day to reach caller: ANYTIME Additional comments/information from caller: Patient seen in dialysis in [place] Note: Please do not reply to this message. Follow-up communication and further actions as a result of this message need to be communicated with the patient directly, if the patient is not active onMyChart. If the patient is active on MyChart, they will receive notification of the communication/outcome via [employer]. documented in this encounter Plan of Treatment Not on file documented as of this encounter Goals Goal [...] documented as of this encounter Care Teams Black Off Worker Relationship Specialty Start Date End Date Pcp, [facility] [address] [place] [address] PCP - General Family Medicine 07/26/21 Carole Avila LPN None None TCM Nurse 10/22/24 11/21/24 documented as of this encounter
--- OUTSIDE RECORDS SUMMARY | 2025-01-09 20:33 | XMS_ITS | Encounter Summary ---
Author Organization [facility] Address [address] [place] [address] Care Team Providers Care Spine Specialist Name Role Phone Pcp, No Primary Care Provider UnavailAliya Garzon AIRPLANE RENTAL CLERK Unavailable UnavailMichaela Nolan NEW ACCOUNTS BANKING REPRESENTATIVE Unavailable Unavailable Carole Avila AIRPLANE RENTAL CLERK Unavailable Unavailable Encounter Details Date Type Department Care Team (Late st Contact Info) Description 04/06/2022 Lab Requisition [facility] [address] [place] [address] Emma Obrien MD [address] [address] Encounter for general adult medical examination [...] drink first t terri in the morning (EYE-REEXAMINER) to steady your nerves or to get [...] as of this encounter Plan of Treatment Not on file documented as of this encounter Procedures Procedure Name Priority Date/Time Associated Diagnosis Comments CASSANDRA AURIS SURVEILLANCE BY PCR Routine 04/06/2022 1:18 PM EST Encounter for general adult medical examination without abnormal findings documented in this encounter Results * Cassandra auris Surveillance by PCR (04/06/2022 1:18 PM EST) Cassandra auris PCR Result Not Detected Not Detected 04/10/2022 10:21 AM EST [facility] Swab (Axilla and Groin) 04/06/2022 1:18 PM EST 04/06/2022 1:26 PM EST Narrative [facility] - 04/10/2022 10:21 AM EST This PCR assay was developed and its performance characteristics determined by [facility] as appropriate for clinical purposes. This assay has not been cleared or approved by the FDA, but is performed in a CLIA regulated laboratory that is qualified to perform high-complexity testing. This PCR assay was developed and its performance characteristics determined by [facility] as appropriate for clinical purposes. This assay has not been cleared or approved by the FDA, but is performed in a CLIA regulated laboratory that is qualified to perform high-complexity testing. Emma Luz MD LAB MICROBIOLOGY - GENERAL ORDERABLES Final Result [facility] [address] [place], [place] [id number] documented in this encounter Visit Diagnoses Diagnosis [...] documented as of this encounter Care Teams Spine Specialist Relationship Specialty Start Date End Date Pcp, [facility] [address] [place] [address] PCP - General Family Medicine 07/26/21 Aliya Grimaldo LPN VALUE-BASED TRANSFORMATION PROGRAM None TCM Nurse Internal Medicine 04/25/22 05/25/22 Michaela aBbb, [place] [address] Wig Stylist Compliance Administrator 03/15/22 05/21/24 Carole Avila LPN None None TCM Nurse 10/22/24 11/21/24 documented as of this encounter
--- OUTSIDE RECORDS SUMMARY | 2025-01-09 20:33 | XMS_ITS | Clinical Summary ---
Author Organization [facility] Address [address] [place] [address] Care Team Providers Care Butcher Fish Name Role Phone Pcp, No Primary Care [...] a day. 60 tablet 1 5 Active Additional Information Patient not taking.Reported on 01/07/2025 naloxone (Narcan) 4 mg/0.1 mL nasal spray [...] 5 Active sevelamer carbonate (Renvela) 800 MG tabletIndications :ESRD on Dialysis Take 2 tablets by mouth 3 times a day with meals. Swallow tablet whole; do not crush, break, or chew. 5 Active traZODone (Desyrel) 50 MG tablet Take 1 tablet by mouth nightly. 30 tablet Active lisinopril 20 MG tablet Take 1 tablet by mouth daily. 30 tablet Active sodium zirconium cyclosilicate (Lokelma) 10 g packet Take 10 g by mouth 4 times a week. On non dialysis days 160 g 11 Active Active Problems Problem Noted Date Diagnosed Date Coagulation defect, unspecified 10/16/2024 Other ascites 10/16/2024 Hepatic failure, unspecified without coma 2024 Decompensated cirrhosis 10/15/2024 Atrophy of kidney (terminal) 10/15/2024 Acute and subacute hepatic failure without coma 10/15/2024 Other specified soft tissue disorders 10/15/2024 Duodenitis without bleeding 10/14/2024 Gastric foreign body 10/14/2024 Hematemesis 10/14/2024 Other specified disorders of veins 10/13/2024 Cardiomegaly 10/13/2024 Other peritonitis 10/13/2024 Nonrheumatic mitral (valve) insufficiency 2024 End-stage renal disease needing dialysis 025 Other specified abnormal findings of blood chemi stry 10/12/2024 Tachycardia, unspecified 10/12/2024 Abnormal electrocardiogram (ECG) (EKG) Old myocardial infarction 09/24/2024 Severe protein-calorie malnutrition 09/10/2024 Patient's noncompliance with renal dialysis due to financial hardship 09/10/2024 Fluid overload, unspecified 09/10/2024 Iron deficiency anemia, unspecified 09/10/2024 Nausea 09/10/2024 Pruritus, unspecified 09/10/2024 Other disorders of phosphorus metabolism 025 Hypomagnesemia 09/08/2024 Rheumatic disorders of both mitral and tricuspid valves 09/08/2024 Acute posthemorrhagic anemia 09/07/2024 Other specified disorders of gingiva and edentulous alveolar ridge 09/07/2024 Other disorders of electroly te and fluid balance, not elsewhere classified 09/06/2024 Portal hypertension 09/06/2024 Ileus, unspecified 09/05/2024 Other specified disorders of the male genital or nirmala 09/05/2024 Methicillin resistant Staphy lococcus aureus infection as the cause of diseases classified elsewhere 09/05/2024 Other specified disorders of teeth and supporting structures 09/04/2024 Candidal esophagitis 08/29/2024 Dental caries, unspecified 08/29/2024 Sepsis due to Staphylococcus aureus 08/28/2024 Other specified bacterial ag ents as the cause of diseases classified elsewhere 08/26/2024 Biventricular heart failure 08/26/2024 Heart failure, systolic, with acute decompensati on 08/24/2024 MR (mitral regurgitation) 08/24/2024 TR (tricuspid regurgitation) 08/24/2024 Enterococcus as the cause of diseases classified elsewhere 08/24/2024 Klebsiella pneumoniae (k. pn eumoniae) as the cause of diseases classified elsewhere 08/24/2024 Sepsis due to Enterococcus 08/23/2024 Cardiac tamponade 08/22/2024 Nicotine dependence, cigarettes, uncomplicated 0 08/21/2024 Renal osteodystrophy 08/21/2024 Secondary hyperparathyroidism of renal origin Opioid dependence, uncomplicated 08/21/2024 Hypertensive heart and chron ic kidney disease with heart failure and with stage 5 chronic kidney disease, or end stage renal disease 08/19/2024 Typical atrial flutter 08/19/2024 Other nonspecific abnormal finding of lung field 08/17/2024 Atelectasis 08/17/2024 Other pulmonary collapse 08/17/2024 Abdominal distension (gaseous) 08/13/2024 Bloodstream infection due to central venous catheter, initial encounter 08/12/2024 Hyperkalemia 08/11/2024 Elevated white blood cell count, unspecified 08/2024 Other specified conduction disorders 08/11/2024 Unspecified atrioventricular block 08/08/2024 Bacteremia 08/07/2024 Acute pericarditis, unspecified 08/07/2024 Acute respiratory failure with hypoxia Atrial premature depolarization 08/07/2024 Dependence on respirator (ventilator) status 04/2024 Gastrointestinal hemorrhage, unspecified 025 Other streptococcus as the c ause of diseases classified elsewhere 08/07/2024 Sepsis due to Escherichia coli (e. coli) 025 Splenomegaly, not elsewhere classified Ulcer of esophagus without bleeding 08/06/2024 Chronic or unspecified duodenal ulcer with hemor rhage 08/05/2024 Diaphragmatic hernia without obstruction or gang dat 08/05/2024 Gram-negative sepsis, unspecified 08/03/2024 Dehydration 08/01/2024 Acute kidney failure with tubular necrosis 07/31 Hydrocele, unspecified 07/31/2024 Pericardial effusion 07/30/2024 Atrial flutter with rapid ventricular response 0 07/30/2024 Allergy, unspecified, initial encounter 05/25/19 Anaphylactic shock, unspecified, initial encount er 05/24/2024 Dependence on renal dialysis 05/23/2024 Unspecified diastolic (congestive) heart failure 05/23/2024 Anemia in chronic kidney disease 05/23/2024 Chronic kidney disease, unspecified 05/22/2024 Essential (primary) hypertension 05/21/2024 Hyperparathyroidism, unspecified 05/20/2024 Heart failure, unspecified 05/18/2024 Pneumonia due to Mycoplasma pneumoniae End stage renal disease 05/15/2024 Shortness of breath 05/15/2024 Chronic viral hepatitis C 05/15/2024 Smoker 05/15/2024 Cannabis abuse, uncomplicated 05/15/2024 Ileus 05/15/2024 Chronic bilateral pleural effusions 05/15/2024 Anemia 05/15/2024 Acute and subacute infective endocarditis 2024 Local infection of the skin and subcutaneous tissue, unspecified 05/15/2024 Mycoplasma pneumoniae (M. pn eumoniae) as the cause of diseases classified elsewhere 05/15/2024 Pain in right wrist 05/14/2024 Unspecified fall, initial encounter 05/14/2024 Secondary hypertension, unspecified 05/09/2024 Unspecified abdominal pain 05/09/2024 Chronic pulmonary edema 05/08/2024 Pneumonia due to Pseudomonas 05/07/2024 Hypertensive emergency 05/06/2024 Mitral valve mass 05/06/2024 Encephalopathy, unspecified 05/06/2024 Generalized edema 05/06/2024 Pain, unspecified 05/06/2024 Opioid use disorder, severe, dependence 04/03/19 23 Swelling of joint of left wrist Resolved Problems Problem Noted Date Diagnosed Date Resolved Date Sepsis 03/15/2022 10/26/2024 Encounters * This document contains information received from the source organization and may not represent a complete record from that organization. Date Type Department Care Team Description 12/23/2024 Orders Only [facility] Bone & Mineral Metabolism [address], [address] [place] [address] Katlyn Cano PA 12/03/2024 Patient Outreach [facility] Medicine Specialties [address] [place] [address] Tracee Negrete 11/27/2024 Patient Outreach [facility] Specialties [address] [place] [address] Kalee Cardona 11/22/2024 Orders Only Professional [facility] Nephrology, Bone & Mineral Metabolism [address], [address] [place] [address] Emery Pastrana MD 11/07/2024 Telephone [facility] Nephrology, Bone & Mineral Metabolism [address], [address] [place] [address] Emery Pastrana MD 11/07/2024 Telephone [facility] Specialties [address] [place] [address] Rehana Ross, RN 10/28/2024 Patient Outreach [facility] Specialties [address] [place] [address] Tracee Negrete 10/22/2024 Patient Outreach [facility] [address], [address] [place] [id number] Carole Avila LPN TCM 10/16/2024 Travel 10/15/2024 Travel 10/14/2024 2:30 PM EDT Anesthesia Event [facility] [address] [place] [address] Kayden Gloria MD 10/14/2024 Patient Outreach [facility] Medicine Specialties [address] [place] [address] Deirdre Gandara 10/14/2024 Travel 10/13/2024 Travel 10/12/2024 Travel 10/12/2024 Orders Only External Location [address] [place] [phone] Provider, External 10/12/2024 Orders Only External Location [address] [place] [address] Provider, External 10/10/2024 Patient Outreach [facility] Medicine Specialties [address] [place] [address] Deirdre Gandara from Last 3 Months Social History Tobacco [...] answer 05/07/2024 How often do you attend [facility] or jew services? Patient unable to answer [...] often do you attend roman catholic or jew serv ices? Never 07/31/2024 Do [...] care, and heating? Very hard 07/31/2024 [facility] [place] of Occupat ional Health - Occupational Stress [...] in a chcf (including now)? 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 nerves or to [...] 10/14/2024 1:33 PM EDT Plan of Treatment Health Maintenance Due Date Last Done Comments [...] Vaccines (1 - 3-dose SCDM series) 2009 [id number] Vaccine (1 - season) 2024 UKY-Influenza Vaccine [...] Plan Autogenerated Problem No Kai Ying RN Procedures Procedure Name Priority Date/Time Associated [...] EDT ESRD (end stage renal disease) (CMS/HCC) POCT GLUCOSE METER UNSOLICITED RESULTS Routine 10/15/2024 [...] 10/13/2024 4:18 PM EDT Decompensated cirrhosis (CMS/HCC) IN ABDOM PARACENTESIS DX/THER W IMAGING GUIDANCE Routine 10/13/2024 4:18 PM EDT Decompensated cirrhosis (CMS/HCC) BLOOD GAS PANEL, VENOUS Routine 10/13/2024 3:05 PM EDT LACTATE, VENOUS Routine 10/13/2024 3:05 PM EDT CBC W/O DIFFERENTIAL STAT 10/13/2024 3:05 PM EDT POCT GLUCOSE METER UNSOLICITED RESULTS Routine 10/13/2024 2:01 PM EDT IN CRITICAL CARE, E/M 30-74 MINUTES Routine 10/13/2024 [...] RESISTANCE TEST Routine 10/12/2024 10:37 PM EDT CASSANDRA AURIS SURVEILLANCE BY PCR Routine 10/12/2024 10:37 [...] PROFILE, PLASMA Routine 10/12/2024 9:00 PM EDT IN CRITICAL CARE, E/M 30-74 MINUTES Routine 10/12/2024 [...] ECG ADULT STAT 10/12/2024 7:12 PM EDT IN CRITICAL CARE, E/M 30-74 MINUTES Routine 10/12/2024 6:[address] THORACIC OUTSIDE IMAGES 10/12/2024 4:[address] MSK OUTSIDE IMAGES 10/12/2024 4:50 PM EDT HIV 1/2 ANTIBODY/ANTIGEN SCREEN WITH REFLEX TO HIV I/II DIFFERENTIATION Routine 08/01/2024 9:13 AM EDT from Last 3 Months or Most Recently Relevant to Health Maintenance Results * (ABNORMAL) POCT glucose meter (10/16/2024 7:48 PM EDT) Only the most recent of21 resultswithin the time period is included. [facility] POCT Glucose 102(H) 74 - 99 mg/dL 10/16/2024 7:50 PM EDT [facility] Comment:Accuracy of a [...] for testing. Comment 10/16/2024 7:50 PM EDT [facility] Tail Trimmer ID Brery Melton 7:50 PM EDT [facility] Device ID [id number] 10/16/2024 7:50 PM EDT [facility] Specimen Type POC Capillary 10/16/2024 7:50 PM EDT [facility] Blood Capillary blood specimen / Unknown 10/16/2024 7:48 PM EDT 10/16/2024 7:50 PM EDT Chandrika Shields MD LAB POINT OF CARE TE ST DOCKED DEVICE UNSOLICITED RESULTS Final Result Performing Organization Address City/[facility]/ZIP Co de Phone Number [facility] [address] [place] [address] * (ABNORMAL) Hepatitis B Surface Antibody, Quantitative (10/16/2024 9:10 AM EDT) Only the most recent of2 resultswithin the time period is included. Hepatitis B Surface Antibody, Quantitative >1,000.00 (H) NonReacti ve: <8, Grayzone: 8 - <12, Reactive: >= 12 mIU/mL 10/16/2024 12:20 PM EDT [facility] Comment: Reactive. Individual is considered immune to HBV infection. Blood Venous blood specimen / Unknown (Port) Long-term Catheter / Unknown 10/16/2024 9:10 AM EDT 10/16/2024 9:23 AM EDT Gurpreet VYAS LAB BLOOD ORDERABLES Final Result Performing Organization Address [facility]/ZIP Co de Phone Number [facility] [address] [place] [address] * Hepatitis panel, acute (10/16/2024 9:10 AM EDT) Only the most recent of2 resultswithin the time period is included. Hepatitis B Surf Antigen Negative Negative 10/16/2024 12:23 PM EDT [facility] Hepatitis A Antibody IgM Negative Negative 10/16/2024 12:23 PM EDT [facility] Hepatitis B Core Antibody IgM Negative Negative 10/16/2024 12:23 PM EDT [facility] Blood Venous blood specimen / Unknown (Port) Long-term Catheter / Unknown 10/16/2024 9:10 AM EDT 10/16/2024 9:23 AM EDT Narrative [facility] - 10/16/2024 12:23 PM EDT Hepatitis C Antibody previously reported Positive on patient and will not be repeated on this panel. Patient is expected to test positive for Hepatitis C Antibody for the rest of their life. See previous results below: Hepatitis C Antibody Date Value Ref Range Status 03/15/2022 Positive (A) Negative Final Gurpreet Young [place] LAB BLOOD ORDERABLES Final Result [facility] [address] [place] [address] * (ABNORMAL) CBC and Differential (10/16/2024 9:10 AM EDT) Only the most recent of2 resultswithin the time period is included. WBC Count 5.83 3.70 - 10.30 10*3/uL LAB HEMATOLOGY METHOD 10/16/2024 9:26 AM EDT [facility] RBC Count 2.90(L) 4.60 - 6.10 10*6/uL LAB HEMATOLOGY METHOD 10/16/2024 9:26 AM EDT [facility] HGB 7.9(L) 13.7 - 17.5 g/dL LAB HEMATOLOGY METHOD 10/16/2024 9:26 AM EDT [facility] HCT 25.8(L) 40.0 - 51.0 % LAB HEMATOLOGY METHOD 10/16/2024 9:26 AM EDT [facility] Platelet Count 185 155 - 369 10*3/uL LAB HEMATOLOGY METHOD 10/16/2024 9:26 AM EDT [facility] MCV 89 79 - 98 fL LAB HEMATOLOGY METHOD 10/16/2024 9:26 AM EDT [facility] MCH 27.2 26.0 - 32.0 pg LAB HEMATOLOGY METHOD 10/16/2024 9:26 AM EDT [facility] MCHC 30.6(L) 30.7 - 35.5 g/dL LAB HEMATOLOGY METHOD 10/16/2024 9:26 AM EDT [facility] RDW 18.0(H) 11.5 - 14.5 % LAB HEMATOLOGY METHOD 10/16/2024 9:26 AM EDT [facility] MPV 9.6 8.8 - 12.5 fL LAB HEMATOLOGY METHOD 10/16/2024 9:26 AM EDT [facility] nRBC 0.0 <=0.0 per 100 WBCs LAB HEMATOLOGY METHOD 10/16/2024 9:26 AM EDT [facility] Differential Type Automated LAB HEMATOLOGY METHOD 10/16/2024 9:26 AM EDT [facility] Neutrophils % 71 % LAB HEMATOLOGY METHOD 10/16/2024 9:26 AM EDT [facility] Lymphocytes % 15 % LAB HEMATOLOGY METHOD 10/16/2024 9:26 AM EDT [facility] Monocytes % 9 % LAB HEMATOLOGY METHOD 10/16/2024 9:26 AM EDT [facility] Eosinophils % 3 % LAB HEMATOLOGY METHOD 10/16/2024 9:26 AM EDT [facility] Basophils % 1 % LAB HEMATOLOGY METHOD 10/16/2024 9:26 AM EDT [facility] Immature Granulocytes % 1 % LAB HEMATOLOGY METHOD 10/16/2024 9:26 AM EDT [facility] Neutrophils Absolute 4.20 1.60 - 6.10 10*3/uL LAB HEMATOLOGY METHOD 10/16/2024 9:26 AM EDT [facility] Lymphocytes Absolute 0.85(L) 1.20 - 3.90 10*3/uL LAB HEMATOLOGY METHOD 10/16/2024 9:26 AM EDT [facility] Monocytes Absolute 0.51 0.30 - 0.90 10*3/uL LAB HEMATOLOGY METHOD 10/16/2024 9:26 AM EDT [facility] Eosinophils Absolute 0.20 0.00 - 0.50 10*3/uL LAB HEMATOLOGY METHOD 10/16/2024 9:26 AM EDT [facility] Basophils Absolute 0.04 0.00 - 0.10 10*3/uL LAB HEMATOLOGY METHOD 10/16/2024 9:26 AM EDT [facility] Immature Granulocytes Absolute 0.03 0.00 - 0.06 10*3/uL LAB HEMATOLOGY METHOD 10/16/2024 9:26 AM EDT [facility] Blood Venous blood specimen / Unknown (Port) Long-term Catheter / Unknown 10/16/2024 9:10 AM EDT 10/16/2024 9:23 AM EDT [facility] - 10/16/2024 9:26 AM EDT Therapeutic decision making should be based on absolute values, rather than percentages. us Chandrika Shields MD LAB BLOOD ORDERABLES Final Re sult [facility] [address] [place] [id number] * (ABNORMAL) Phosphorus (10/16/2024 9:10 AM EDT) Only the most recent of4 resultswithin the time period is included. Pathologist [facility] Phosphorus, Plasma 7.1(H) 2.5 - 4.5 mg/dL 10/16/2024 12:00 PM EDT [facility] Blood Venous blood specimen / Unknown (Port) Long-term Catheter / Unknown 10/16/2024 9:10 AM EDT 10/16/2024 9:23 AM EDT us Chandrika Shields MD LAB BLOOD ORDERABLES Final Re sult [facility] [address] [place] [address] * (ABNORMAL) Comprehensive Metabolic Panel, Plasma (10/16/2024 9:10 AM EDT) Only the most recent of3 resultswithin the time period is included. Pathologist [facility] Glucose, Plasma 112(H) 74 - 99 mg/dL 10/16/2024 9:43 AM EDT [facility] BUN, Plasma 46(H) 7 - 21 mg/dL 10/16/2024 9:43 AM EDT [facility] Creatinine, Plasma 5.30(H) 0.70 - 1.20 mg/dL 10/16/2024 9:43 AM EDT [facility] BUN/Creatinine Ratio 9 10/16/2024 9:43 AM EDT [facility] Sodium, Plasma 133(L) 136 - 145 mmol/L 10/16/2024 9:43 AM EDT [facility] Potassium, Plasma 4.3 3.6 - 4.9 mmol/L 10/16/2024 9:43 AM EDT [facility] Chloride, Plasma 96(L) 97 - 107 mmol/L 10/16/2024 9:43 AM EDT [facility] CO2, Plasma 20(L) 22 - 29 mmol/L 10/16/2024 9:43 AM EDT [facility] Anion Gap 17(H) 6 - 16 mmol/L 10/16/2024 9:43 AM EDT [facility] Total Calcium, Plasma 7.2(L) 8.9 - 10.2 mg/dL 10/16/2024 9:43 AM EDT [facility] Total Protein 5.7(L) 6.3 - 7.9 g/dL 10/16/2024 9:43 AM EDT [facility] Albumin, Plasma 2.7(L) 3.5 - 5.2 g/dL 10/16/2024 9:43 AM EDT [facility] AST, Plasma 149(H) 10 - 50 U/L 10/16/2024 9:43 AM EDT [facility] ALT, Plasma 422(H) 10 - 50 U/L 10/16/2024 9:43 AM EDT [facility] Alkaline Phosphatase, Plasma 177(H) 40 - 115 U/L 10/16/2024 9:43 AM EDT [facility] Total Bilirubin, Plasma 0.2 0.2 - 1.1 mg/dL 10/16/2024 9:43 AM EDT [facility] eGFRcr 13.0 mL/min/1.7 3m*2 10/16/2024 9:43 AM EDT [facility] Comment:Reported eGFRcr in m L/min/1.73m2 is based the CKD-EPI 2020 equation that does not use a race coefficient. Blood Venous blood specimen / Unknown (Port) Long-term Catheter / Unknown 10/16/2024 9:10 AM EDT 10/16/2024 9:23 AM EDT us Chandrika Shields MD LAB BLOOD ORDERABLES Final Re sult [facility] [address] [place] [address] * (ABNORMAL) Ionized calcium, whole blood (10/15/2024 5:46 PM EDT) Only the most recent of2 resultswithin the time period is included. Ionized Calcium, Whole Blood 4.0(L) 4.6 - 5.1 mg/dL LAB HEMATOLOGY METHOD 10/15/2024 4:44 PM EDT [facility] Blood Venous blood specimen / Unknown 10/15/2024 5:46 PM EDT 10/15/2024 4:41 PM EDT us Janelle Meza APRN LAB BLOOD ORDERABLES Final Result Performing Organization Address City/[facility]/ZIP Co de Phone Number [facility] [address] [place] [address] * (ABNORMAL) Hepatic Function Panel (10/15/2024 5:46 PM EDT) Only the most recent of2 resultswithin the time period is included. Direct Bilirubin, Plasma <0.2 <=0.3 mg/dL 10/16/2024 8:57 AM EDT [facility] Alkaline Phosphatase, Plasma 210(H) 40 - 115 U/L 10/16/2024 8:57 AM EDT [facility] Total Bilirubin, Plasma 0.3 0.2 - 1.1 mg/dL 10/16/2024 8:57 AM EDT [facility] Albumin, Plasma 2.8(L) 3.5 - 5.2 g/dL 10/16/2024 8:57 AM EDT [facility] Total Protein 6.0(L) 6.3 - 7.9 g/dL 10/16/2024 8:57 AM EDT [facility] ALT, Plasma 469(H) 10 - 50 U/L 10/16/2024 8:57 AM EDT [facility] AST, Plasma 154(H) 10 - 50 U/L 10/16/2024 8:57 AM EDT [facility] Blood Venous blood specimen / Unknown Venipuncture / Unknown 10/15/2024 5:46 PM EDT 10/15/2024 4:40 PM EDT us Chandrika Shields MD LAB BLOOD ORDERABLES Final Re sult [facility] [address] [place] [address] * (ABNORMAL) Basic metabolic panel (10/15/2024 5:46 PM EDT) Only the most recent of2 resultswithin the time period is included. Glucose, Plasma 80 74 - 99 mg/dL 10/15/2024 5:21 PM EDT [facility] BUN, Plasma 41(H) 7 - 21 mg/dL 10/15/2024 5:21 PM EDT [facility] Creatinine, Plasma 4.60(H) 0.70 - 1.20 mg/dL 10/15/2024 5:21 PM EDT [facility] BUN/Creatinine Ratio 9 10/15/2024 5:21 PM EDT [facility] Sodium, Plasma 135(L) 136 - 145 mmol/L 10/15/2024 5:21 PM EDT [facility] Potassium, Plasma 4.4 3.6 - 4.9 mmol/L 10/15/2024 5:21 PM EDT [facility] Chloride, Plasma 99 97 - 107 mmol/L 10/15/2024 5:21 PM EDT [facility] CO2, Plasma 21(L) 22 - 29 mmol/L 10/15/2024 5:21 PM EDT [facility] Anion Gap 15 6 - 16 mmol/L 10/15/2024 5:21 PM EDT [facility] Total Calcium, Plasma 7.3(L) 8.9 - 10.2 mg/dL 10/15/2024 5:21 PM EDT [facility] eGFRcr 15.4 mL/min/1.7 3m*2 10/15/2024 5:21 PM EDT [facility] Comment:Reported eGFRcr in m L/min/1.73m2 is based the CKD-EPI 2020 equation that does not use a race coefficient. Blood Venous blood specimen / Unknown Venipuncture / Unknown 10/15/2024 5:46 PM EDT 10/15/2024 4:40 PM EDT Janelle Meza APRN LAB BLOOD ORDERABLES Final Result [facility] [address] [place] [address] * (ABNORMAL) CBC W/O Differential (10/15/2024 3:52 PM EDT) Only the most recent of4 resultswithin the time period is included. WBC Count 6.40 3.70 - 10.30 10*3/uL LAB HEMATOLOGY METHOD 10/15/2024 4:43 PM EDT [facility] RBC Count 3.47(L) 4.60 - 6.10 10*6/uL LAB HEMATOLOGY METHOD 10/15/2024 4:43 PM EDT [facility] HGB 9.4(L) 13.7 - 17.5 g/dL LAB HEMATOLOGY METHOD 10/15/2024 4:43 PM EDT [facility] HCT 31.1(L) 40.0 - 51.0 % LAB HEMATOLOGY METHOD 10/15/2024 4:43 PM EDT [facility] Platelet Count 236 155 - 369 10*3/uL LAB HEMATOLOGY METHOD 10/15/2024 4:43 PM EDT [facility] MCV 90 79 - 98 fL LAB HEMATOLOGY METHOD 10/15/2024 4:43 PM EDT [facility] MCH 27.1 26.0 - 32.0 pg LAB HEMATOLOGY METHOD 10/15/2024 4:43 PM EDT [facility] MCHC 30.2(L) 30.7 - 35.5 g/dL LAB HEMATOLOGY METHOD 10/15/2024 4:43 PM EDT [facility] RDW 18.0(H) 11.5 - 14.5 % LAB HEMATOLOGY METHOD 10/15/2024 4:43 PM EDT [facility] MPV 9.5 8.8 - 12.5 fL LAB HEMATOLOGY METHOD 10/15/2024 4:43 PM EDT [facility] nRBC 0.3(H) <=0.0 per 100 WBCs LAB HEMATOLOGY METHOD 10/15/2024 4:43 PM EDT [facility] Blood Venous blood specimen / Unknown Venipuncture / Unknown 10/15/2024 3:52 PM EDT 10/15/2024 4:41 PM EDT us Clara Damon NEWS VIDEOTAPE EDITOR, DNP LAB BLOOD ORDERABLE S Final Result [facility] [address] [place] [address] * VAS US Venous Duplex Lower Extremity [...] on 10/15/2024 12:23 PM us Clara Damon NEWS VIDEOTAPE EDITOR, DNP CV VASCULAR PROCEDU RES Final Result [...] signing this report, I, the attending physician, иринаat I have personally reviewed the images/data for the aboveexamination(s) and agree with the final edited report. Drafted by Ermelinda Sparrow MD on 10/15/2024 11:28 AM Final report signed by Edilia Louie MD on 10/15/2024 12:21 PM us Clara Damon NEWS VIDEOTAPE EDITOR, DNP IMG US PROCEDURES F inal Result [...] Dax Ernandez MD Fellow Alysha Jessica Endo Foreign Policy Officer Eduin Greer, CAMILO Endo Nurse Kirsty Donald, Keith Pierson CRNA, MD Proceduralist Clarke Mendoza Endo Foreign Policy Officer Preprocedure A history and physical has been [...] bx Tissue Esophagus SURGICAL PATHOLOGY EXAM Dax Ernnadez MD 10/14/2024 1448 Findings Severe, generalized edematous [...] bleeding was observed; performed cold forceps biopsy. Krissy Jimenez MD GI PROCEDURE ORDERABLES F inal Result * Surgical Pathology Exam (10/14/2024 2:43 PM EDT) Case Report Surgical Pathology Case: [id number] Authorizing Provider: Keith Lopez MD Collected: 10/14/2024 1443 Ordering Location: [facility] Inpatient Received: 10/14/2024 1551 Pathologist: Lawrence Acuña DO Specimens: A) - Duodenum, duodenal bx B) - Esophagus, esophageal bx 10/15/2024 12:14 PM EDT [facility] Final Diagnosis A. SMALL INTESTINE, DUODENUM, BIOPSY: - FEATURES SUGGESTIVE OF CHRONIC NONSPECIFIC DUODENITIS. - NO EVIDENCE OF VILLOUS ABNORMALITY OR INTRAEPITHELIAL LYMPHOCYTOSIS. B. ESOPHAGUS, BIOPSY: - FOCAL FEATURES OF REFLUX RELATED CHANGES. 10/15/2024 12:14 PM EDT [facility] at 1214 EDT Clinical Information F11.20 [...] of the duodenum. 10/15/2024 12:14 PM EDT [facility] Gross Description A. DUODENAL BX Received in formalin labeled d uodenal biopsy , are 2 red-moseley soft fragments of tissue measuring from 0.3 cm to 0.7 cm in greatest dimension. Entirely submitted in cassette A1. Cold Time: <1m Pennybekah Mancera B. ESOPHAGEAL BX Received in formalin labeled e sophageal biopsy , are 2 white-red soft fragments of tissue measuring 0.4 cm each. Entirely submitted in cassette B1. Cold Time: <1m Pennybekah Mancera 10/15/2024 12:14 PM EDT [facility] Note: A resident was involved in the service. I attest I examined the relevant preparations for the specimens and confirmed the diagnosis or interpretation. 10/15/2024 12:14 PM EDT [facility] Tissue Duodenal structure / Unknown 10/14/2024 2:43 PM EDT 10/14/2024 3:51 PM EDT Tissue specimen (specimen) Esophageal structure / Unknown 10/14/2024 2:48 PM EDT 10/14/2024 3:51 PM EDT us Keith Lopez MD LAB PATHOLOGY ORDERABLES Final R esult [facility] [address] [place] [address] * Streptococcus pneumoniae and Legionella Urinary Antigen (10/14/2024 3:12 AM EDT) Legionella pneumophila serogroup 1 Antigen Result (Urine) Negative Negative 10/14/2024 10:06 AM EDT [facility] Streptococcus pneumoniae Antigen Result (Urine) Negative Negative 10/14/2024 10:06 AM EDT [facility] Urine Urine specimen obtained by clean catch procedure / Unknown Non-blood Collection / Unknown 10/14/2024 3:12 AM EDT 10/14/2024 3:18 AM EDT Najma Walker APRN LAB MICROBIOLOGY - GENERAL ORDERABLES Final Result Performing Organization Address City/[facility]/ZIP Co de Phone Number [facility] [address] [place] [address] * Urine Whiteside Panel (10/14/2024 3:12 AM EDT) Pathologist [facility] Extra Reflex urine culture not indicated 10/14/2024 3:38 AM EDT [facility] Urine Urine specimen obtained by clean catch procedure / Unknown Non-blood Collection / Unknown 10/14/2024 3:12 AM EDT 10/14/2024 3:18 AM EDT us Cece Miller MD LAB URINE ORDERABLES Final Resul t Performing Organization Address City/[facility] Co de Phone Number [facility] [address] [place] [address] * Urinalysis Microscopic Examination (10/14/2024 3:12 AM EDT) Urine Urine specimen obtained by clean catch procedure / Unknown Non-blood Collection / Unknown 10/14/2024 3:12 AM EDT 10/14/2024 3:18 AM EDT us Cece Miller MD LAB URINE ORDERABLES Final Resul t Performing Organization Address [facility]/ZIP Co de Phone Number [facility] [address] [place] [address] * Drug Abuse Screen Urine (10/14/2024 3:12 AM EDT) Amphetamine Screen Urine Negative Cutoff: 500 ng/mL 10/14/2024 3:37 AM EDT [facility] Benzodiazepines Screen Urine Negative Cutoff: 200 ng/mL 10/14/2024 3:37 AM EDT [facility] Cannabinoid Screen Urine Presumptive positive. Confirmation by LC-MS/MS to follow. Cutoff: 50 ng/mL 10/14/2024 3:37 AM EDT [facility] Cocaine Screen Urine Negative Cutoff: 300 ng/mL 10/14/2024 3:37 AM EDT [facility] Barbiturate Screen Urine Negative Cutoff: 200 ng/mL 10/14/2024 3:37 AM EDT [facility] Opiate Screen Urine Negative Cutoff: 300 ng/mL 10/14/2024 3:37 AM EDT [facility] Methadone Screen Urine Negative Cutoff: 300 ng/mL 10/14/2024 3:37 AM EDT [facility] Buprenorphine Screen Urine Negative Cutoff: 10 ng/mL 10/14/2024 3:37 AM EDT [facility] Fentanyl Screen Urine Negative Cutoff: 1 ng/mL 10/14/2024 3:37 AM EDT [facility] Oxycodone Screen Urine Negative Cutoff: 100 ng/mL 10/14/2024 3:37 AM EDT [facility] Urine Urine specimen obtained by clean catch procedure / Unknown Non-blood Collection / Unknown 10/14/2024 3:12 AM EDT 10/14/2024 3:18 AM EDT Najma Walker APRN LAB URINE ORDERABLES Final Result Performing Organization Address City/State/[facility] Co de Phone Number [facility] [address] [place] [phone] * (ABNORMAL) THC Urine Confirm LCMSMS (10/14/2024 3:12 AM EDT) 9 Carboxy THC <10 <10 ng/mL 10/15/2024 6:19 AM EDT [facility] 9 Carboxy THC Glucuronide 116(H) <25 ng/mL 10/15/2024 6:19 AM EDT [facility] Urine Urine specimen obtained by clean catch procedure / Unknown Non-blood Collection / Unknown 10/14/2024 3:12 AM EDT 10/14/2024 3:18 AM EDT Narrative [facility] - 10/15/2024 6:19 AM EDT Drug analysis is confirmed by LC-MS/MS (LC Tandem Mass Spectrometry) on Urine specimens. This test was developed and its performance characteristics determined by [facility]. It has not been cleared or approved by the FDA. The laboratory is regulated under CLIA as qualified to perform high-complexity testing. This test is used for clinical purposes. Testing is performed at the [facility], Special [facility] Laboratory. Najma Walker APRN LAB URINE ORDERABLES Final Result [facility] [address] [place] [address] * (ABNORMAL) Comprehensive Urine Drug Screening, Qualitative Assay, >= 27 Drug Classes (:12 AM EDT) Acetaminophen Negative Negative 10/18/2024 4:50 PM EDT [facility] Alprazolam Negative Negative 10/18/2024 4:50 PM EDT [facility] Amantadine Negative Negative 10/18/2024 4:50 PM EDT [facility] Amitriptyline Negative Negative 10/18/2024 4:50 PM EDT [facility] Amphetamine Negative Negative 10/18/2024 4:50 PM EDT [facility] Atenolol Negative Negative 10/18/2024 4:50 PM EDT [facility] Benzoylecgonine Negative Negative 4:50 PM EDT [facility] Bisoprolol Negative Negative 10/18/2024 4:50 PM EDT [facility] Bupropion Negative Negative 10/18/2024 4:50 PM EDT [facility] Butalbital Negative Negative 10/18/2024 4:50 PM EDT [facility] Carbamazepine Negative Negative 10/18/2024 4:50 PM EDT [facility] Carisoprodol Negative Negative 10/18/2024 4:50 PM EDT [facility] Chlorpheniramine Negative Negative 10/19/19 4:50 PM EDT [facility] Citalopram Negative Negative 10/18/2024 4:50 PM EDT [facility] Clindamycin Negative Negative 10/18/2024 4:50 PM EDT [facility] Clonidine Negative Negative 10/18/2024 4:50 PM EDT [facility] Clopidogrel / Ticlopidine Negative Negative 10/18/2024 4:50 PM EDT [facility] Cocaethylene Negative Negative 10/18/2024 4:50 PM EDT [facility] Cocaine Negative Negative 10/18/2024 4:50 PM EDT [facility] Codeine Negative Negative 10/18/2024 4:50 PM EDT [facility] Cyclobenzaprine Negative Negative 4:50 PM EDT [facility] Desvenlafaxine Negative Negative 10/18/2024 4:50 PM EDT [facility] Dextromethorphan Negative Negative 10/19/19 4:50 PM EDT [facility] Diazepam Negative Negative 10/18/2024 4:50 PM EDT [facility] Diltiazem Negative Negative 10/18/2024 4:50 PM EDT [facility] Diphenhydramine Negative Negative 4:50 PM EDT [facility] Doxepine Negative Negative 10/18/2024 4:50 PM EDT [facility] Doxylamine Negative Negative 10/18/2024 4:50 PM EDT [facility] EDDP-Methadone metabolite Negative Negative 10/18/2024 4:50 PM EDT [facility] Fentanyl Negative Negative 10/18/2024 4:50 PM EDT [facility] Fluconazole Negative Negative 10/18/2024 4:50 PM EDT [facility] Fluoxetine Negative Negative 10/18/2024 4:50 PM EDT [facility] Guaifenesin Negative Negative 10/18/2024 4:50 PM EDT [facility] Haloperidol Negative Negative 10/18/2024 4:50 PM EDT [facility] Heroin/6-JUSTIN Negative Negative 10/18/2024 4:50 PM EDT [facility] Hydrocodone Negative Negative 10/18/2024 4:50 PM EDT [facility] Hydroxyzine / Cetirizine metabolite Negative Negative 10/18/2024 4:50 PM EDT [facility] Ibuprofen Negative Negative 10/18/2024 4:50 PM EDT [facility] Imipramine Negative Negative 10/18/2024 4:50 PM EDT [facility] Ketamine Negative Negative 10/18/2024 4:50 PM EDT [facility] Labetolol Negative Negative 10/18/2024 4:50 PM EDT [facility] Lamotrigine Negative Negative 10/18/2024 4:50 PM EDT [facility] Levetiracetam Negative Negative 10/18/2024 4:50 PM EDT [facility] Lidocaine Positive(A) Negative 10/18/2024 4:50 PM EDT [facility] MDA Negative Negative 10/18/2024 4:50 PM EDT [facility] MDMA Negative Negative 10/18/2024 4:50 PM EDT [facility] Memantine Negative Negative 10/18/2024 4:50 PM EDT [facility] Meperidine Negative Negative 10/18/2024 4:50 PM EDT [facility] Meprobamate Negative Negative 10/18/2024 4:50 PM EDT [facility] Metaxalone Negative Negative 10/18/2024 4:50 PM EDT [facility] Methamphetamine Negative Negative 4:50 PM EDT [facility] Methocarbamol Negative Negative 10/18/2024 4:50 PM EDT [facility] Methylecgonine Negative Negative 10/18/2024 4:50 PM EDT [facility] Metoclopramide Negative Negative 10/18/2024 4:50 PM EDT [facility] Metoprolol Negative Negative 10/18/2024 4:50 PM EDT [facility] Metronidazole Negative Negative 10/18/2024 4:50 PM EDT [facility] Midazolam Negative Negative 10/18/2024 4:50 PM EDT [facility] Midazolam Metabolite Negative Negative 10/18/2024 4:50 PM EDT [facility] Mirtazapine Negative Negative 10/18/2024 4:50 PM EDT [facility] Misc Test Result Negative Negative 10/19/19 4:50 PM EDT [facility] Naproxen Negative Negative 10/18/2024 4:50 PM EDT [facility] Nefazodone Negative Negative 10/18/2024 4:50 PM EDT [facility] Norfentanyl Negative Negative 10/18/2024 4:50 PM EDT [facility] Nortriptyline Negative Negative 10/18/2024 4:50 PM EDT [facility] Ordanstron Negative Negative 10/18/2024 4:50 PM EDT [facility] Oxcarbazepine Negative Negative 10/18/2024 4:50 PM EDT [facility] Oxycodone Negative Negative 10/18/2024 4:50 PM EDT [facility] Paroxethine Negative Negative 10/18/2024 4:50 PM EDT [facility] Phenobarbital Negative Negative 10/18/2024 4:50 PM EDT [facility] Phentermine Negative Negative 10/18/2024 4:50 PM EDT [facility] Phenytoin Negative Negative 10/18/2024 4:50 PM EDT [facility] Primidone Negative Negative 10/18/2024 4:50 PM EDT [facility] Promethazine Negative Negative 10/18/2024 4:50 PM EDT [facility] Propofol Negative Negative 10/18/2024 4:50 PM EDT [facility] Propranolol Negative Negative 10/18/2024 4:50 PM EDT [facility] Quetiapine Negative Negative 10/18/2024 4:50 PM EDT [facility] Quinine Negative Negative 10/18/2024 4:50 PM EDT [facility] Rantidine Negative Negative 10/18/2024 4:50 PM EDT [facility] Sertraline Negative Negative 10/18/2024 4:50 PM EDT [facility] Spironolactone Negative Negative 10/18/2024 4:50 PM EDT [facility] Tizanidine Negative Negative 10/18/2024 4:50 PM EDT [facility] Topiramate Negative Negative 10/18/2024 4:50 PM EDT [facility] Tramadol Negative Negative 10/18/2024 4:50 PM EDT [facility] Trazadone/ Trazadone metabolite Negative Negative 10/18/2024 4:50 PM EDT [facility] Trimethoprim Negative Negative 10/18/2024 4:50 PM EDT [facility] Valproic Acid Negative Negative 10/18/2024 4:50 PM EDT [facility] Venlafaxine Negative Negative 10/18/2024 4:50 PM EDT [facility] Verapamil Negative Negative 10/18/2024 4:50 PM EDT [facility] Zolpidem Negative Negative 10/18/2024 4:50 PM EDT [facility] Xylazine Negative Negative 10/18/2024 4:50 PM EDT [facility] Urine Urine specimen obtained by clean catch procedure / Unknown Non-blood Collection / Unknown 10/14/2024 3:12 AM EDT 10/14/2024 3:18 AM EDT Najma Walker APRN LAB URINE ORDERABLES Final Result [facility] [address] [place] [address] * (ABNORMAL) Urinalysis with reflex microscopic (Culture NOT Included) (10/14/2024 3:12 AM EDT) Color, Urine Yellow LAB URINALYSIS - AUTOMATED METHOD 10/14/2024 3:37 AM EDT [facility] Clarity, Urine Clear LAB URINALYSIS - AUTOMATED METHOD 10/14/2024 3:37 AM EDT [facility] Spec Lane, Urine 1.020 1.005 - 1.030 LAB URINALYSIS - AUTOMATED METHOD 10/14/2024 3:37 AM EDT [facility] pH, Urine 8.0 5.0 - 8.0 LAB URINALYSIS - AUTOMATED METHOD 10/14/2024 3:37 AM EDT [facility] Protein, Urine >=300(A) Negative mg/dL LAB URINALYSIS - AUTOMATED METHOD 10/14/2024 3:37 AM EDT [facility] Glucose, Urine 100(A) Negative mg/dL LAB URINALYSIS - AUTOMATED METHOD 10/14/2024 3:37 AM EDT [facility] Ketones, Urine Negative Negative mg/dL LAB URINALYSIS - AUTOMATED METHOD 10/14/2024 3:37 AM EDT [facility] Blood, Urine Trace(A) Negative LAB URINALYSIS - AUTOMATED METHOD 10/14/2024 3:37 AM EDT [facility] Bilirubin, Urine Negative Negative LAB URINALYSIS - AUTOMATED METHOD 10/14/2024 3:37 AM EDT [facility] Urobilinogen, Urine 0.2 0.2 to 1.0 mg/dL LAB URINALYSIS - AUTOMATED METHOD 10/14/2024 3:37 AM EDT [facility] Leukocytes, Urine Negative Negative LAB URINALYSIS - AUTOMATED METHOD 10/14/2024 3:37 AM EDT [facility] Nitrite, Urine Negative Negative LAB URINALYSIS - AUTOMATED METHOD 10/14/2024 3:37 AM EDT [facility] RBC, Urine 1 0 to 3 /HPF 10/14/2024 3:37 AM EDT [facility] Comment:This result was prev iously suppressed from the chart. WBC, Urine 0 - 5 0 to 5 /HPF 10/14/2024 3:37 AM EDT [facility] Comment:This result was prev iously suppressed from the chart. Squamous Epithelial Cells 0 - 2 0 to 5 /HPF 10/14/2024 3:37 AM EDT [facility] Comment:This result was prev iously suppressed from the chart. Hyaline Casts 0 - 2 0 to 5 /LPF 10/14/2024 3:37 AM EDT [facility] Comment:This result was prev iously suppressed from the chart. Bacteria, Urine Negative Negative 10/14/2024 3:37 AM EDT [facility] Comment:This result was prev iously suppressed from the chart. Urine Urine specimen obtained by clean catch procedure / Unknown Non-blood Collection / Unknown 10/14/2024 3:12 AM EDT 10/14/2024 3:18 AM EDT Narrative [facility] - 10/14/2024 3:37 AM EDT Performed by manual method us Cece Miller MD LAB URINE ORDERABLES Final Resul t Performing Organization Address City/[facility]/ZIP Co de Phone Number [facility] [address] [place] [address] * Magnesium, Plasma (10/14/2024 3:10 AM EDT) Only the most recent of3 resultswithin the time period is included. Magnesium, Plasma 2.0 1.9 - 2.4 mg/dL 10/14/2024 3:47 AM EDT [facility] Blood Venous blood specimen / Unknown Venipuncture / Unknown 10/14/2024 3:10 AM EDT 10/14/2024 3:17 AM EDT Clara Damon APRN, DNP LAB BLOOD ORDERABLE S Final Result Performing Organization Address [facility] Co de Phone Number [facility] [address] [place] [address] * Body Fluid Cell Count With Diff - Ascites (10/13/2024 4:44 PM EDT) Color, Body fluid Yellow LAB HEMATOLOGY METHOD 10/13/2024 6:44 PM EDT [facility] Appearance, Body fluid Clear LAB HEMATOLOGY METHOD 10/13/2024 6:44 PM EDT [facility] Volume, Body fluid 9.0 cc LAB HEMATOLOGY METHOD 10/13/2024 6:44 PM EDT [facility] Fluid Container Tube 2 LAB HEMATOLOGY METHOD 10/13/2024 6:44 PM EDT [facility] Red Blood Cell Count, Body fluid 191 uL LAB HEMATOLOGY METHOD 10/13/2024 6:44 PM EDT [facility] Comment:Test performed by albina granados. Total Nucleated Cell Count, Body fluid 131 uL LAB HEMATOLOGY METHOD 10/13/2024 6:44 PM EDT [facility] Neutrophils %, Body fluid 8 % LAB HEMATOLOGY METHOD 10/13/2024 6:44 PM EDT [facility] Lymphocytes %, Body fluid 64 % LAB HEMATOLOGY METHOD 10/13/2024 6:44 PM EDT [facility] Monocytes/Macro phages %, Body fluid 24 % LAB HEMATOLOGY METHOD 10/13/2024 6:44 PM EDT [facility] Eosinophils %, Body fluid 0 % LAB HEMATOLOGY METHOD 10/13/2024 6:44 PM EDT [facility] Lining/Mesothel ial Cells %, Body fluid 4 % LAB HEMATOLOGY METHOD 10/13/2024 6:44 PM EDT [facility] Neutrophils Absolute (PMN), Body fluid 10 uL LAB HEMATOLOGY METHOD 10/13/2024 6:44 PM EDT [facility] Lymphocytes Absolute, Body fluid 84 uL LAB HEMATOLOGY METHOD 10/13/2024 6:44 PM EDT [facility] Monocytes/Macro phages Absolute, Body fluid 31 uL LAB HEMATOLOGY METHOD 10/13/2024 6:44 PM EDT [facility] Eosinophils Absolute, Body fluid 0 uL LAB HEMATOLOGY METHOD 10/13/2024 6:44 PM EDT [facility] Basophils Absolute, Body fluid 0 uL LAB HEMATOLOGY METHOD 10/13/2024 6:44 PM EDT [facility] Lining/Mesothel ial Cells Absolute, Body fluid 5 uL LAB HEMATOLOGY METHOD 10/13/2024 6:44 PM EDT [facility] Comment, Body fluid None LAB HEMATOLOGY METHOD 10/13/2024 6:44 PM EDT [facility] Comment:This is an appended report. These results have been appended to a previously preliminary verified report. Basophils %, Body fluid 0 % LAB HEMATOLOGY METHOD 10/13/2024 6:44 PM EDT [facility] Body Fluid Peritoneal fluid / Unknown Non-blood Collection / Unknown 10/13/2024 4:44 PM EDT 10/13/2024 4:56 PM EDT Clara Damon NEWS VIDEOTAPE EDITOR, DNP LAB BODY FL UIDS AND STOOLS ORDERABLES NO SPECIMEN TYPE/SOURCE Final Result [facility] [address] [place] [phone] * Body fluid, cytospin, pathologist interpretation (10/13/2024 4:44 PM EDT) Specimen Type Body Fluid LAB HEMATOLOGY METHOD 10/14/2024 1:34 PM EDT [facility] Specimen Source, Body Fluid Peritoneal Fluid LAB HEMATOLOGY METHOD 10/14/2024 1:34 PM EDT [facility] Clinical Diagnosis, Body Fluid Ascites LAB HEMATOLOGY METHOD 10/14/2024 1:34 PM EDT [facility] Interpretation , Body Fluid Predominantly chronic inflammatory cells, degenerating histiocytes and mesothelial cells 10/14/2024 1:34 PM EDT [facility] Pathologist Signature, Body Fluid Charlotte Yip MD 10/14/2024 1:34 PM EDT [facility] Comment:Reviewed by: Charlotte Yip MD LAB CP ASR DISCLAIMER No 10/14/2024 1:34 PM EDT [facility] Body Fluid Peritoneal fluid / Unknown Non-blood Collection / Unknown 10/13/2024 4:44 PM EDT 10/13/2024 4:56 PM EDT Clara Damon APRN, JAZMINE LAB BODY FLUIDS AND STOOLS ORDERABLES Final Result [facility] [address] [place] [phone] * Amylase, Peritoneal Fluid (10/13/2024 4:42 PM EDT) Amylase Peritoneal Fluid 62 U/L 10/13/2024 6:36 PM EDT [facility] Ascites Peritoneal cavity structure / Unknown 10/13/2024 4:42 PM EDT 10/13/2024 4:56 PM EDT Narrative [facility] - 10/13/2024 6:36 PM EDT Reference Values: No established reference interval. Interpret with caution. This test was developed and its performance characteristics determined by [facility]. The U.S. Food and Drug [...] results, and other clinical evidence. Clara Damon APRN, JAZMINE LAB BODY FLUIDS AND STOOLS ORDERABLES Final Result Performing Organization Address [facility] Co de Phone Number [facility] [address] [place] [address] * Albumin - Ascites (10/13/2024 4:42 PM EDT) Albumin, Peritoneal Fluid 2.4 g/dL 10/13/2024 6:[address] [facility] Ascites Peritoneal cavity structure / Unknown 10/13/2024 4:42 PM EDT 10/13/2024 4:56 PM EDT Narrative [facility] - 10/13/2024 6:36 PM EDT REPORTING RESULTS Reference Values: No established reference interval. Results should be interpreted in comparison to the concentration in blood and in conjunction with the clinical context. This test was developed and its performance characteristics determined by [facility]. The U.S. Food and Drug Administration has not approved or cleared this test; however, FDA clearance or approval is not currently required for clinical use. The results are not intended to be used as the sole means for clinical diagnosis or patient management decisions. Clara Damon APRN, JAZMINE LAB BODY FLUIDS AND STOOLS ORDERABLES Final Result Performing Organization Address [facility] Co de Phone Number [facility] [address] [place] [address] * BILIRUBIN, TOTAL, BODY FLUID (SO) (10/13/2024 4:42 PM EDT) Bilirubin, Total, Body Fluid 0.3 mg/dL 10/15/2024 10:08 PM EDT [facility] ([facility]) Bilirubin, Total Fluid Source Peritoneal fl 10/15/2024 10:08 PM EDT [facility] ([facility]) Peritoneal Fluid Peritoneal cavity structure / Unknown Non-blood Collection / Unknown 10/13/2024 4:42 PM EDT 10/13/2024 4:56 PM EDT Narrative [facility] ([facility]) - 10/15/2024 10:08 PM EDT INTERPRETIVE INFORMATION: Bilirubin, Total, Body Fluid For information on body fluid reference ranges and/or interpretive guidance visit [email or web address] This test was developed and its performance characteristics determined by [email or web address]. It has not been cleared or approved by the [place] Food and Drug Administration. This test was performed in a CLIA certified laboratory and is intended for clinical purposes. Performed By: [email or web address] [address] [place] [address] Adding Machine Servicer: Deangelo Gee MD, PhD CLIA Number: [id number] Clara Damon APRN, DNP LAB BODY FLUIDS AND STOOLS ORDERABLES Final Result Performing Organization Address City/[facility]/ZIP Co de Phone Number [facility] ([facility]ARED) [address] [place] [address] * Body Fluid Culture and Gram Stain (10/13/2024 4:42 PM EDT) Culture No growth at day 4 2024 1:06 PM EDT [facility] Gram Stain Result Rare Polymorphonuclear leukocytes 10/16/2024 1:06 PM EDT [facility] Gram Stain Result No organisms seen 10/16/2024 1:06 PM EDT [facility] Peritoneal Fluid Peritoneal cavity structure / Unknown Non-blood Collection / Unknown 10/13/2024 4:42 PM EDT 10/13/2024 4:56 PM EDT Clara Damon APRN, DNP LAB MICROBIOLOGY - GENERAL ORDERABLES Final Result [facility] [address] [place] [address] * Triglyceride - Ascites (10/13/2024 4:42 PM EDT) Triglyceride, Fluid 44 mg/dL 10/16/2024 5:52 AM EDT [facility] ([facility]) Triglyceride Fluid Source Peritoneal fl 10/16/2024 5:52 AM EDT [facility] ([facility]) Peritoneal Fluid Non-blood Collection / Unknown 10/13/2024 4:42 PM EDT 10/13/2024 4:56 PM EDT Narrative [facility]) - 10/16/2024 5:52 AM EDT INTERPRETIVE INFORMATION: Triglycerides, Fluid For information on body fluid reference ranges and/or interpretive guidance visit [email or web address] This test was developed and its performance characteristics determined by [email or web address]. It has not been cleared or approved by the US Food and Drug Administration. This test was performed in a CLIA certified laboratory and is intended for clinical purposes. Performed By: [email or web address] [address] [place] [address] Adding Machine Servicer: Deangelo Gee MD, PhD CLIA Number: [id number] Clara Damon APRN, DNP LAB REF LAB BLOOD A ND FLUID ORD Final Result Performing Organization Address City/[facility] Co de Phone Number [facility] RA[facility]) [address] [place] [address] * Protein - Ascites (10/13/2024 4:42 PM EDT) Total Protein, Fluid 4.6 g/dL 10/13/2024 6:[address] [facility] Ascites Peritoneal cavity structure / Unknown 10/13/2024 4:42 PM EDT 10/13/2024 4:56 PM EDT Narrative [facility] - 10/13/2024 6:36 PM EDT This test was developed and its performance characteristics determined by [facility]. The U.S. Food and Drug [...] [facility] [place]/ZIP Co de Phone Number [facility] [address] [place] [address] * LDH - Ascites (10/13/2024 4:42 PM EDT) LDH, Fluid 242 U/L 10/13/2024 6:36 PM EDT [facility] Ascites Peritoneal cavity structure / Unknown 10/13/2024 4:42 PM EDT 10/13/2024 4:56 PM EDT Narrative [facility] - 10/13/2024 6:36 PM EDT No [...] BODY FLUIDS AND STOOLS ORDERABLES Final Result [facility] [address] [place] [address] * Glucose - Ascites (10/13/2024 4:42 PM EDT) Glucose, Fluid 84 mg/dL 10/13/2024 6:36 PM EDT [facility] Ascites Peritoneal cavity structure / Unknown 10/13/2024 4:42 PM EDT 10/13/2024 4:56 PM EDT Narrative [facility] - 10/13/2024 6:36 PM EDT Peritoneal/Ascites [...] 3) Glucose < 50 mg/dL. Clara Damon NEWS VIDEOTAPE EDITOR, DNP LAB BODY FLUIDS AND STOOLS ORDERABLES Final Result [facility] [address] [place] [address] * IN ABDOM PARACENTESIS DX/THER W IMAGING GUIDANCE, HC [...] infection and pain Alternatives discussed: No treatment [place] protocol: Procedure explained and questions answered to [...] LAB HEMATOLOGY METHOD 10/13/2024 3:38 PM EDT [facility] Blood Venous blood specimen / Unknown Venipuncture / Unknown 10/13/2024 3:05 PM EDT 10/13/2024 3:24 PM EDT us Krissy Jimenez MD LAB BLOOD ORDERABLES Estefany l Result [facility] [address] [place] [address] * (ABNORMAL) Blood gas panel, venous (10/13/2024 3:05 PM EDT) Only the most recent of2 resultswithin the time period is included. pH, Venous 7.40 7.32 - 7.43 LAB HEMATOLOGY METHOD 10/13/2024 3:38 PM EDT [facility] pCO2, Venous 38(L) 40 - 55 mmHg LAB HEMATOLOGY METHOD 10/13/2024 3:38 PM EDT [facility] pO2, Venous 53(H) 25 - 40 mmHg LAB HEMATOLOGY METHOD 10/13/2024 3:38 PM EDT [facility] SO2, Measured, Venous 83(H) 65 - 80 % LAB HEMATOLOGY METHOD 10/13/2024 3:38 PM EDT [facility] Base Excess, Venous -0.8 -2.0 - 3.0 mmol/L LAB HEMATOLOGY METHOD 10/13/2024 3:38 PM EDT [facility] Bicarbonate, Calculated, Venous 24 22 - 26 mmol/L LAB HEMATOLOGY METHOD 10/13/2024 3:38 PM EDT [facility] Hematocrit, Whole Blood 36.7(L) 40.0 - 51.0 % LAB HEMATOLOGY METHOD 10/13/2024 3:38 PM EDT [facility] Sodium, Whole Blood 137 136 - 145 mmol/L LAB HEMATOLOGY METHOD 10/13/2024 3:38 PM EDT [facility] Potassium, Whole Blood 5.0(H) 3.6 - 4.9 mmol/L LAB HEMATOLOGY METHOD 10/13/2024 3:38 PM EDT [facility] Chloride, Whole Blood 102 97 - 107 mmol/L LAB HEMATOLOGY METHOD 10/13/2024 3:38 PM EDT [facility] Glucose, Whole Blood 88 74 - 99 mg/dL LAB HEMATOLOGY METHOD 10/13/2024 3:38 PM EDT [facility] Lactate, Venous, Whole Blood 1.4 0.5 - 2.2 mmol/L LAB HEMATOLOGY METHOD 10/13/2024 3:38 PM EDT [facility] Ionized Calcium, Whole Blood 4.3(L) 4.6 - 5.1 mg/dL LAB HEMATOLOGY METHOD 10/13/2024 3:38 PM EDT [facility] Blood Venous blood specimen / Unknown Venipuncture / Unknown 10/13/2024 3:05 PM EDT 10/13/2024 3:24 PM EDT Krissy Jimenez MD LAB BLOOD ORDERABLES Estefany l Result [facility] [address] [place] [address] * IN CRITICAL CARE, E/M 30-74 MINUTES (10/13/2024 12:37 [...] A) Not Detected. 10/15/2024 3:18 PM EDT [facility] Hepatitis C Virus (HCV) Quantitative Viral Load Log Result 2.40 <1.08 log10 IU/mL 10/15/2024 3:18 PM EDT [facility] Hepatitis C Virus (HCV) Quantitative IU/mL Result 254 <12 IU/mL 10/15/2024 3:18 PM EDT [facility] Blood Venous blood specimen / Unknown Venipuncture / Unknown 10/13/2024 11:34 AM EDT 10/13/2024 11:38 AM EDT Narrative [facility] - 10/15/2024 3:18 PM EDT The [employer] M2000 HCV test is a Real Time [...] APRN, JAZMINE LAB BLOOD ORDERABLES Final Result [facility] [address] [place] [address] * (ABNORMAL) Hepatitis C Virus (HCV) Genotype (10/13/2024 11:34 AM EDT) Pathologist [facility] Hepatitis C Virus (HCV) Genotype Result Hepatitis C Virus Genotype: 3(A) Not Detected 10/19/2024 4:10 AM EDT [facility] Blood Venous blood specimen / Unknown Venipuncture / Unknown 10/13/2024 11:34 AM EDT 10/13/2024 11:38 AM EDT Narrative [facility] - 10/19/2024 4:10 AM EDT This test is performed by the [employer] m2000 instrument for Real Time PCR HCV Genotype II. This test is FDA approved for use with serum specimens. This test is used for clinical purposes. It should not be regarded as investigational or for research. Reference interval includes HCV Genotypes: 1, 1A, 1B, 2, 3, 4, and 5. The [facility] is certified under the Clinical Laboratory Improvement Amendments of 1988 (CLIA-88) as qualified to perform high complexity clinical laboratory testing. Lashay Gong APRN, JAZMINE LAB BLOOD ORDERABLES Final Result [facility] [address] [place] [address] * (ABNORMAL) Serum Drug Screen (10/13/2024 11:34 AM EDT) 9 Carboxy THC 56(H) <5 ng/mL 10/17/2024 4:25 PM EDT [facility] Alprazolam <5 <5 ng/mL 10/17/2024 4:25 PM EDT [facility] Amphetamine <10 <10 ng/mL 10/17/2024 4:25 PM EDT [facility] Benzolyecgonine <20 <20 ng/mL 4:25 PM EDT [facility] Buprenorphine <1.0 <1.0 ng/mL 10/17/2024 4:25 PM EDT [facility] Butalbital <50 <50 ng/mL 10/17/2024 4:25 PM EDT [facility] Clonazepam <5 <5 ng/mL 10/17/2024 4:25 PM EDT [facility] Codeine <5 <5 ng/mL 10/17/2024 4:25 PM EDT [facility] Diazepam <5 <5 ng/mL 10/17/2024 4:25 PM EDT [facility] Fentanyl <1 <1 ng/mL 10/17/2024 4:25 PM EDT [facility] Hydrocodone <2 <2 ng/mL 10/17/2024 4:25 PM EDT [facility] Hydromorphone <5 <5 ng/mL 10/17/2024 4:25 PM EDT [facility] Lorazepam <5 <5 ng/mL 10/17/2024 4:25 PM EDT [facility] MDA <10 <10 ng/mL 10/17/2024 4:25 PM EDT [facility] MDMA <10 <10 ng/mL 10/17/2024 4:25 PM EDT [facility] Meperidine <5 <5 ng/mL 10/17/2024 4:25 PM EDT [facility] Methadone <10 <10 ng/mL 10/17/2024 4:25 PM EDT [facility] Methadone Metabolite <10 <10 ng/mL 10/06 4:25 PM EDT [facility] Methamphetamine <10 <10 ng/mL 4:25 PM EDT [facility] Midazolam <5 <5 ng/mL 10/17/2024 4:25 PM EDT [facility] Morphine <2 <2 ng/mL 10/17/2024 4:25 PM EDT [facility] Norbuprenorphine <5 <5 ng/mL 10/18/19 4:25 PM EDT [facility] Nordiazepam <10 <10 ng/mL 10/17/2024 4:25 PM EDT [facility] Oxazepam <5 <5 ng/mL 10/17/2024 4:25 PM EDT [facility] Oxycodone 9(H) <2 ng/mL 10/17/2024 4:25 PM EDT [facility] Oxymorphone <2 <2 ng/mL 10/17/2024 4:25 PM EDT [facility] Phenobarbital <50 <50 ng/mL 10/17/2024 4:25 PM EDT [facility] Temazepam <5 <5 ng/mL 10/17/2024 4:25 PM EDT [facility] Tramadol <20 <20 ng/mL 10/17/2024 4:25 PM EDT [facility] Blood Venous blood specimen / Unknown Venipuncture / Unknown 10/13/2024 11:34 AM EDT 10/13/2024 11:37 AM EDT [facility] - 10/17/2024 4:25 PM EDT Test performed by LC-MS/MS at the [facility]. This test was developed and its performance characteristics determined by [facility]. It has not been cleared or approved by the FDA. The laboratory is regulated under CLIA as qualified to perform high-complexity testing. This test is used for clinical purposes. us Clara Damon APRN, JAZMINE LAB BLOOD ORDERABLE S Final Result [facility] [address] [place] [address] * (ABNORMAL) Renal function panel (10/13/2024 11:34 AM EDT) Glucose, Plasma 90 74 - 99 mg/dL 10/13/2024 12:27 PM EDT [facility] BUN, Plasma 57(H) 7 - 21 mg/dL 10/13/2024 12:27 PM EDT [facility] Creatinine, Plasma 5.16(H) 0.70 - 1.20 mg/dL 10/13/2024 12:27 PM EDT [facility] BUN/Creatinine Ratio 11 10/13/2024 12:27 PM EDT [facility] Sodium, Plasma 137 136 - 145 mmol/L 10/13/2024 12:27 PM EDT [facility] Potassium, Plasma 5.4(H) 3.6 - 4.9 mmol/L 10/13/2024 12:27 PM EDT [facility] Chloride, Plasma 99 97 - 107 mmol/L 10/13/2024 12:27 PM EDT [facility] CO2, Plasma 22 22 - 29 mmol/L 10/13/2024 12:27 PM EDT [facility] Anion Gap 16 6 - 16 mmol/L 10/13/2024 12:27 PM EDT [facility] Total Calcium, Plasma 8.8(L) 8.9 - 10.2 mg/dL 10/13/2024 12:27 PM EDT [facility] Phosphorus, Plasma 7.1(H) 2.5 - 4.5 mg/dL 10/13/2024 12:27 PM EDT [facility] Albumin, Plasma 3.0(L) 3.5 - 5.2 g/dL 10/13/2024 12:27 PM EDT [facility] eGFRcr 13.5 mL/min/1.7 3m*2 10/13/2024 12:27 PM EDT [facility] Comment:Reported eGFRcr in m L/min/1.73m2 is based the CKD-EPI 2020 equation that does not use a race coefficient. Blood Venous blood specimen / Unknown Venipuncture / Unknown 10/13/2024 11:34 AM EDT 10/13/2024 11:39 AM EDT us Nicki George NEWS VIDEOTAPE EDITOR, DNP LAB BLOOD ORDERABLES Estefany galloway Result [facility] [address] [place] [address] * ECHO, ADULT TRANSTHORACIC COMPLETE (10/13/2024 10:37 [...] mL FLORESITA ISCV LV ESV(MOD2ch) 192 mL FLORESIAT ISCV EF(MOD-sp2) 30 % FLORESITA ISCV EDV(MOD-bp) [...] Root Diam 35 mm FLORESITA ISCV PA IN(ACCEL) 30.6 mmHg FLORESITA ISCV LVLs ap2 9.1 [...] significant interval change noted. us Najma Walker NEWS VIDEOTAPE EDITOR CV ECHO PROCEDURES Final Re sult * [...] Jara on 10/13/2024 4:40 AM Najma Walker NEWS VIDEOTAPE EDITOR IMG CT PROCEDURES Final Res ult * [...] MD on 10/13/2024 8:49 AM Najma Walker NEWS VIDEOTAPE EDITOR IMG XR PROCEDURES Final Res ult * (ABNORMAL) Troponin T, High Sensitivity, 2 Hour, Plasma (10/12/2024 11:40 PM EDT) Troponin T, High Sensitivity, 2 Hour 148(H) <19 ng/L 10/13/2024 12:06 AM EDT [facility] Troponin Delta 7 <10 ng/L 10/13/2024 12:06 AM EDT [facility] Troponin Delta Interpretation Not Significant 10/13/2024 12:06 AM EDT [facility] Comment:Not Significant. No acute change in troponin observed between the baseline and 2 hour samples. Blood Venous blood specimen / Unknown Venipuncture / Unknown 10/12/2024 11:40 PM EDT 10/12/2024 11:44 PM EDT Cece Miller MD LAB BLOOD ORDERABLES Final Resul t Performing Organization Address [facility]UST de Phone Number [facility] [address] [place] [address] * (ABNORMAL) Ionized calcium, serum (10/12/2024 11:40 PM EDT) Pathologist [facility] Ionized Calcium, Serum 4.2(L) 4.6 - 5.3 mg/dL LAB HEMATOLOGY METHOD 10/12/2024 11:53 PM EDT [facility] Blood Venous blood specimen / Unknown Venipuncture / Unknown 10/12/2024 11:40 PM EDT 10/12/2024 11:44 PM EDT Najma Walker APRN LAB BLOOD ORDERABLES Final Result Performing Organization Address [facility] de Phone Number [facility] [address] [place] [address] * (ABNORMAL) BETA HYDROXYBUTYRIC ACID (10/12/2024 11:40 PM EDT) [facility] Beta-Hydroxybu tyric Acid, Plasma 0.378(H) <=0.27 mmol/L 10/13/2024 12:25 PM EDT [facility] Blood Venous blood specimen / Unknown Venipuncture / Unknown 10/12/2024 11:40 PM EDT 10/12/2024 11:44 PM EDT Clara Damon APRN, DNP LAB BLOOD ORDERABLE S Final Result Performing Organization Address [facility] de Phone Number [facility] [address] [place] [address] * Cassandra auris Surveillance by PCR (10/12/2024 10:37 PM EDT) [facility] Cassandra auris PCR Result Not Detected Not Detected 10/13/2024 2:48 PM EDT [facility] Swab (Axilla and Groin) Non-blood Collection / Unknown 10/12/2024 10:37 PM EDT 10/13/2024 3:39 AM EDT Narrative [facility] - 10/13/2024 2:48 PM EDT This PCR assay was developed and its performance characteristics determined by [facility] as appropriate for clinical purposes. This assay has not been cleared or approved by the FDA, but is performed in a CLIA regulated laboratory that is qualified to perform high-complexity testing. [employer] NEWS VIDEOTAPE EDITOR LAB MICROBIOLOGY - GENERAL ORDERABLES Final Result Performing Organization Address [facility] Co de Phone Number [facility] [address] [place] [address] * (ABNORMAL) Multi Drug Resistance Test (10/12/2024 10:37 PM EDT) Culture Methicillin-Resist ant Staphylococcus aureus(AA) 10/14/2024 10:[address] [facility] Swab (Nares and Annetta Rectal) Non-blood Collection / Unknown 10/12/2024 10:37 PM EDT 10/13/2024 3:39 AM EDT Narrative [facility] - 10/14/2024 10:21 AM EDT This test was developed and its performance characteristics determined by the [facility]. Although the media is FDA-approved, it is not FDA-approved for all specimen types submitted. The FDA has determined that such clearance or approval is not necessary. This test is used for surveillance purposes. It should not be regarded as investigational or for research. The [facility] is certified under the Clinical Laboratory Improvement Amendments of 1988 (CLIA-88) as qualified to perform high complexity clinical laboratory testing. [employer] LAB MICROBIOLOGY - GENERAL ORDERABLES Final Result Performing Organization Address [facility]/ZIP Co de Phone Number [address] [address] * Blood Culture (Aerobic/Anaerobet Set) (10/12/2024 10:36 PM EDT) Only the most recent of2 resultswithin the time period is included. Culture No growth at day 5 10/18/2024 9:01 AM EDT [facility] Blood Venous blood specimen / Unknown Venipuncture / Unknown 10/12/2024 10:36 PM EDT 10/13/2024 3:38 AM EDT Narrative [facility] - 10/18/2024 9:01 AM EDT Low blood volume submitted, results may be compromised Cece Miller MD LAB MICROBIOLOGY - GENERAL ORDER NICHOL Final Result [facility] [address] [place] [address] * ECG - RT (10/12/2024 9:42 PM EDT) Only the most recent of2 resultswithin the time period is included. EKG DIAGNOSIS CLASS Borderline Abnormal MUSE ECG Ventricular Rate 97 BPM MUSE ECG Atrial Rate 97 BPM MUSE ECG IN Interval 142 ms MUSE ECG QRSD Interval 86 ms MUSE ECG QT Interval 364 ms MUSE ECG QTC Interval 463 ms MUSE ECG P [place] 35 degrees MUSE ECG R [place] -19 degrees MUSE ECG T Wave [place] 51 degrees MUSE ECG Diagnosis Normal sinus rhythm MUSE ECG Diagnosis Possible Left atrial enlargement MUSE ECG Diagnosis Borderline ECG MUSE ECG Diagnosis MUSE ECG Diagnosis Confirmed by Colin Andujar ([id number]) on 10/12/2024 10:36:12 PM MUSE ECG 10/12/2024 9:42 PM EDT 10/12/2024 10:36 PM EDT us Najma Walker APRN ECG ORDERABLES Final Resul t MUSE ECG * Ethylene Glycol Plasma (10/12/2024 9:00 PM EDT) Ethylene Glycol, Plasma <10 <10 mg/dL 10/12/2024 10:36 PM EDT [facility] Blood Venous blood specimen / Unknown Venipuncture / Unknown 10/12/2024 9:00 PM EDT 10/12/2024 9:07 PM EDT Narrative [facility] - 10/12/2024 10:36 PM EDT This test was developed and its performance characteristics determined by [facility]. It has not been cleared or approved by the FDA. The laboratory is regulated under CLIA as qualified to perform high-complexity testing. This test is used for clinical purposes. Enzymatic Assay: Performed on Bernie Minor. Najma Walker NEWS VIDEOTAPE EDITOR LAB BLOOD ORDERABLES Final Result [facility] [address] [place] [address] * Alcohol Profile Plasma ([place] Only) (10/12/2024 9:00 PM EDT) Methanol Plasma <10 <10 mg/dL 3:51 AM EDT [facility] Acetone Plasma <10 <10 mg/dL 10/13/2024 3:51 AM EDT [facility] Isopropanol Plasma <10 <10 mg/dL 10/13/2024 3:51 AM EDT [facility] Ethanol Plasma <10 <10 mg/dL 10/13/2024 3:51 AM EDT [facility] Blood Venous blood specimen / Unknown Venipuncture / Unknown 10/12/2024 9:00 PM EDT 10/12/2024 9:07 PM EDT Narrative [facility] - 10/13/2024 3:51 AM EDT Test performed by Gas Chromatography at the [facility]. This test was developed and its performance characteristics determined by [facility]. It has not been cleared or approved by the FDA.The laboratory is regulated under CLIA as qualified to perform high-complexity testing. This test is used for clinical purposes only. Test performed by Gas Chromatography at the [facility]. This test was developed and its performance characteristics determined by [facility]. It has not been cleared or approved by the FDA.The laboratory is regulated under CLIA as qualified to perform high-complexity testing. This test is used for clinical purposes only. [facility] BLOOD ORDERABLES Final Result [facility] [address] [place] [address] * Cortisol, serum (10/12/2024 9:00 PM EDT) Cortisol 13.50 Before 10am: 3.7 - 19.4. After 5pm: 2.9 - 17.3 ug/dL 10/13/2024 12:38 AM EDT [facility] Comment:Testing performed on [employer]urement Technician, standardized against RETIREMENT Reference Standard concentration values assigned by LC-MS/MS and verified by BCR 192 and BCR 193 certified reference materials. Blood Venous blood specimen / Unknown Venipuncture / Unknown 10/12/2024 9:00 PM EDT 10/12/2024 9:14 PM EDT us Najma Walker APRN LAB REF LAB BLOOD AND FLUID ORD Final Result [facility] [address] [place] [address] * IN CRITICAL CARE, E/M 30-74 MINUTES (10/12/2024 8:13 [...] with that of other providers. Najma Walker NEWS VIDEOTAPE EDITOR IN CLINIC/BEDSIDE ORDERABLE S Final Result * [...] ORDERABLES Final Resul t Performing Organization Address City/State/[facility] Co de Phone Number [facility] [address] [place] [address] * (ABNORMAL) Troponin now and 120 min (10/12/2024 7:24 PM EDT) Troponin T, High Sensitivity, 0 Hour 155(H) <19 ng/L 10/12/2024 7:50 PM EDT [facility] Blood Venous blood specimen / Unknown Venipuncture / Unknown 10/12/2024 7:24 PM EDT 10/12/2024 7:28 PM EDT us Cece Miller MD LAB BLOOD ORDERABLES Final Resul t [facility] [address] [place] [address] * (ABNORMAL) Cystatin C (10/12/2024 7:24 PM EDT) Cystatin C 5.14(H) 0.61 - 0.95 mg/L 10/12/2024 11:50 PM EDT [facility] Blood Venous blood specimen / Unknown Venipuncture / Unknown 10/12/2024 7:24 PM EDT 10/12/2024 7:28 PM EDT Najma Walker APRN LAB BLOOD ORDERABLES Final Result Performing Organization Address City/[facility] Co de Phone Number [facility] [address] [place] [address] * Creatine Kinase, Total, Plasma (10/12/2024 7:24 PM EDT) Creatine Kinase, Plasma 210 49 - 320 U/L 10/12/2024 9:21 PM EDT [facility] Blood Venous blood specimen / Unknown Venipuncture / Unknown 10/12/2024 7:24 PM EDT 10/12/2024 7:28 PM EDT [facility] Walker NEWS VIDEOTAPE EDITOR LAB BLOOD ORDERABLES Final Result Performing Organization Address City/[facility] Co de Phone Number [facility] [address] [place] [address] * (ABNORMAL) Procalcitonin, Plasma (10/12/2024 7:24 PM [...] predict 28 day mortality risk. Please consult [email or web address] for more information. Test performed at [facility]. Najma Lashell Walker [facility] LAB BLOOD ORDERABLES Final Result Performing Organization Address [facility] Co de Phone Number [facility] [address] [place] [phone] * (ABNORMAL) Acetaminophen, Quantitative, Plasma (10/12/2024 7:24 PM EDT) Acetaminophen <5.0(L) 10.0 - 30.0 g/mL 10/12/2024 9:21 PM EDT [facility] Blood Venous blood specimen / Unknown Venipuncture / Unknown 10/12/2024 7:24 PM EDT 10/12/2024 7:28 PM EDT Narrative [facility] - 10/12/2024 9:21 PM EDT Therapeutic: 10 to 30 ug/mL Supratherapeutic: >35 ug/mL [facility] BLOOD ORDERABLES Final Result Performing Organization Address [facility] de Phone Number [facility] [address] [place] [phone] * (ABNORMAL) N-Terminal ProBNP, Plasma (10/12/2024 7:24 PM EDT) Only the most recent of2 resultswithin the time period is included. N-Terminal, PROBNP, Plasma >70,000(H) 0 - 449 pg/mL 10/12/2024 10:03 PM EDT [facility] Blood Venous blood specimen / Unknown Venipuncture / Unknown 10/12/2024 7:24 PM EDT 10/12/2024 7:28 PM EDT Najma Walker APRN LAB BLOOD ORDERABLES Final Result [facility] [address] [place] [address] * (ABNORMAL) PT-INR (10/12/2024 7:24 PM EDT) Prothrombin Time 24.7(H) 12.0 - 14.3 sec 10/12/2024 7:44 PM EDT [facility] INR 2.2(H) 0.9 - 1.1 10/12/2024 7:44 PM EDT [facility] Blood Venous blood specimen / [...] INR 2.5 to 3.5 Prevention of recurrent [place] INR 2.5 to 3.5 Cece Miller MD LAB BLOOD ORDERABLES Final Resul t [facility] [address] [place] [address] * Type and screen (10/12/2024 7:24 PM EDT) ABO/Rh B Positive 10/12/2024 7:13 PM EDT BLOOD BANK Antibody Screen Negative 10/12/2024 7:13 PM EDT BLOOD BANK Specimen Expiration 10/15/2024 23:59 10/12/2024 7:13 PM EDT BLOOD BANK Blood Venous blood specimen / Unknown Venipuncture / Unknown 10/12/2024 7:24 PM EDT 10/12/2024 7:27 PM EDT Cece Miller MD LAB BLOOD BANK TEST ORDERABLES F inal Result BLOOD BANK [address] [place] [address], * (ABNORMAL) C-reactive protein (10/12/2024 7:24 PM EDT) CRP, Plasma 102.8(H) <=8.0 mg/L 10/12/2024 9:21 PM EDT [facility] Blood Venous blood specimen / Unknown Venipuncture / Unknown 10/12/2024 7:24 PM EDT 10/12/2024 7:28 PM EDT Narrative [facility] - 10/12/2024 9:21 PM EDT This CRP test is appropriate for assessment of infection, systemic inflammation and/or tissue injury. To assess cardiovascular disease risk order high sensitivity CRP (CRPH). Najma Walker APRN LAB BLOOD ORDERABLES Final Result Performing Organization Address [facility] Co de Phone Number [facility] [address] [place] [address] * Thyroid Stimulating Hormone, Plasma (10/12/2024 7:24 PM EDT) Pathologist [facility] Thyroid Stimulating Hormone, Plasma 3.58 0.40 - 4.20 uIU/mL 10/12/2024 9:21 PM EDT [facility] Blood Venous blood specimen / Unknown Venipuncture / Unknown 10/12/2024 7:24 PM EDT 10/12/2024 7:28 PM EDT Najma Walker APRN LAB BLOOD ORDERABLES Final Result Performing Organization Address City/[facility]/ZIP Co de Phone Number [facility] [address] [place] [address] * Free T4, Plasma (10/12/2024 7:24 PM EDT) Free T4, Plasma 1.1 0.8 - 1.7 ng/dL 10/12/2024 9:31 PM EDT [facility] Blood Venous blood specimen / Unknown Venipuncture / Unknown 10/12/2024 7:24 PM EDT 10/12/2024 7:28 PM EDT Result [facility] Najma Walker APRN LAB BLOOD ORDERABLES Final Result Performing Organization Address [facility]/ZIP Co de Phone Number [facility] [address] [place] [address] * (ABNORMAL) Prealbumin, Plasma (10/12/2024 7:24 PM EDT) Pathologist [facility] Prealbumin, Plasma 15.0(L) 20.0 - 41.0 mg/dL 10/12/2024 11:50 PM EDT [facility] Blood Venous blood specimen / Unknown Venipuncture / Unknown 10/12/2024 7:24 PM EDT 10/12/2024 7:28 PM EDT Najma Walker APRN LAB BLOOD ORDERABLES Final Result Performing Organization Address [facility] Co de Phone Number [facility] [address] [place] [address] * (ABNORMAL) Lipase (10/12/2024 7:24 PM EDT) Pathologist [facility] Lipase, Plasma 92(H) 19 - 63 U/L 10/12/2024 8:17 PM EDT [facility] Blood Venous blood specimen / Unknown Venipuncture / Unknown 10/12/2024 7:24 PM EDT 10/12/2024 7:28 PM EDT Result [facility] Cece Miller MD LAB BLOOD ORDERABLES Final Resul t Performing Organization Address [facility]/ZIP Co de Phone Number [facility] [address] [place] [address] * Hemoglobin A1c (10/12/2024 7:24 PM EDT) [facility] Hemoglobin A1c 4.1 <5.7 % 10/13/2024 1:04 PM EDT [facility] Blood Venous blood specimen / Unknown Venipuncture / Unknown 10/12/2024 7:24 PM EDT 10/12/2024 7:29 PM EDT Narrative [facility] - 10/13/2024 1:04 PM EDT HA1C Interpretive Data: Diagnosis of Diabetes: Diabetic > or = 6.5% Pre-diabetic 5.7 to 6.4% Non-diabetic < or = 5.6% Glycemic Targets for Type I and Type II Diabetics: Non- Adults <7.0% Adults <6.0% Children and Adolescents <7.5% Source: [place] [employer]. Standards of medical care in diabetes,2017. Diabetes Care.2017:40 (suppl 1):S1-S135. Najma Walker APRN LAB BLOOD ORDERABLES Final Result Performing Organization Address [facility]/ZIP Co de Phone Number [facility] [address] [place] [address] * Ammonia (10/12/2024 7:24 PM EDT) Ammonia 14 11 - 51 umol/L 10/12/2024 7:51 PM EDT [facility] Blood Venous blood specimen / Unknown Venipuncture / Unknown 10/12/2024 7:24 PM EDT 10/12/2024 7:28 PM EDT Cece Miller MD LAB BLOOD ORDERABLES Final Resul t Performing Organization Address [facility]/ZIP Co de Phone Number [facility] [address] [place] [address] * Salicylate, Quantitative, Plasma (10/12/2024 7:24 PM EDT) Salicylate, Quantitative, Plasma 9.62 <25 mg/dL mg/dL 10/12/2024 9:21 PM EDT [facility] Blood Venous blood specimen / Unknown Venipuncture / Unknown 10/12/2024 7:24 PM EDT 10/12/2024 7:28 PM EDT Narrative [facility] - 10/12/2024 9:21 PM EDT Therapeutic Range: <25 mg/dL Supratherapeutic Level: >30 mg/dL us Najma Walker NEWS VIDEOTAPE EDITOR LAB BLOOD ORDERABLES Final Result [facility] [address] [place] [address] * IN CRITICAL CARE, E/M 30-74 MINUTES (10/12/2024 6:45 [...] PROCEDURES Edited Resul t - Final * HIV 1 & 2 Antibody/Antigen Screen (08/01/2024 9:13 AM EDT) [facility] HIV 1 & 2 Antibody/Antigen Screen Non Reactive Non Reactive 08/01/2024 10:11 AM EDT [facility] Comment:Screening for HIV 1 & 2 antibodies, and P24 antigen is NONREACTIVE. No confirmatory testing is required. 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 Yes Care Teams Butcher Fish Relationship Specialty Start Date End Date Pcp, No [address] [place] [address] PCP - General Family Medicine 07/26/21
--- OUTSIDE RECORDS SUMMARY | 2025-01-09 20:33 | XMS_ITS ---
Author Organization [facility] Address [address] [id number] Care Team Providers Care Radiological Engineer Name Role Phone Pcp, No Primary Care Provider Unavailabl e Hepatitis C Program Status:Active (Active) Start date:03/15/2022 Enrollment date:03/15/2022 Enrollment reason:HCV Continued Care and Services Coordination
--- OUTSIDE RECORDS SUMMARY | 2025-01-09 20:33 | XMS_ITS ---
Author Organization [facility] Address [address] [id number] Care Team Providers Care Road Contractor Name Role Phone Pcp, No Primary Care Provider Unavailabl e Transitional Care Management Status:Closed (Closed) Start date:10/22/2024 Enrollment date:10/22/2024 Enrollment reason:Identified using hospital discharge data End date:11/21/2024 Close reason:Patient graduated Overview This episode type is for outpatient care managers enrolling patients in the CMS Transitional Care Management program. Continued Care and Services Coordination
--- OUTSIDE RECORDS SUMMARY | 2025-01-09 20:34 | XMS_ITS | Encounter Summary ---
Author Organization [facility] Address [address] [place] [address] Care Team Providers Care Security Developer Name Role Phone Pcp, No Primary Care Provider Unavailabl e Encounter Details Date Type Department Care Team (Late st Contact Info) Description 11/27/2024 [facility] Outreach [facility] [address], [address] [place] [address] Kalee Cardona Social History Tobacco Use Types [...] How often do you attend amish or anglican serv ices? Never 07/31/2024 Do [...] medical care, and heating? Very hard 07/31/2024 [facility] [place] of Occupat ional Health - Occupational Stress [...] any time in the past 12 m [facility], were you homeless or living in a fci (including now)? No 10/22/2024 [facility] Utilities Answer Date Recorded In the [...] drink first t terri in the morning (EYE-BROKE BEATER) to steady your nerves or to get rid of a hangover? 0 03/16/2022 CAGE Questionnaire Score 0 023 Sex and Gender Information Value Date Recorded Sex Assigned at Not on file Legal Sex Male 7:46 PM EDT Gender Identity Not on file Sexual Orientation Not on file documented as of this encounter Miscellaneous Notes * Progress Notes - Kalee Cardona - 11/27/2024 12:40 PM EDT Contact attempt: Attempt 4 since beginning [employer] workflow. SW is attempting to connect pt to HCV care. Pt was found to have HCV RNA+ result in previous lab history. Outcome of contact attempt is Available Per chart review pt is scheduled with GI on 12/02 and pt is aware. LTC will complete chart review on 12/03 to determine linkage status. documented in this encounter Plan of [...] documented as of this encounter Care Teams Security Developer Relationship Specialty Start Date End Date Pcp, No [address] [place] [address] PCP - General Family Medicine 07/26/21 documented as of this encounter
--- OUTSIDE RECORDS SUMMARY | 2025-01-09 20:34 | XMS_ITS | Encounter Summary ---
Author Organization [facility] Address [address] [place] [address] Care Team Providers Care Bronc Buster Name Role Phone Pcp, No Primary Care Provider Unavailabl e Reason for Referral * Medications - Authorized Specialty Diagnoses / Procedures Referred By Contac t Referred To Contact Katlyn Cano PA [address] [place] [phone] Phone: tel: fax: Referral ID Status Reason Start Date Expiration Date V isits Requested Visits Authorized [id number] Authorized 12/23/2024 12/22/2025 1 1 Encounter Details Date Type Department Care Team (Late st Contact Info) Description 12/23/2024 Orders Only [facility] [address], [address] [place] [address] Katlyn Cano PA [address] [place] [address] Social History Tobacco Use Types [...] you attend [facility] or mandaen services? Patient unable to answer 05/07/2024 Do you belong to any clubs o r organizations such as shinto groups, unions, fraternal or athletic groups, or [...] Never 07/31/2024 How often do you attend shinto or mandaen serv ices? Never 07/31/2024 Do you belong to any clubs o r organizations such as shinto groups, unions, [employer] or athletic groups, or school groups? No [...] medical care, and heating? Very hard 07/31/2024 [facility] - Occupational Stress Questionnaire Answer [...] a [place] health care facility (including now)? 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
--- OUTSIDE RECORDS SUMMARY | 2025-01-09 20:34 | XMS_ITS | Encounter Summary ---
Author Organization [facility] Address [address] [place] [address] Care Team Providers Care Candle Maker Name Role Phone Pcp, No Primary Care Provider Unavailabl e Encounter Details Date Type Department Care Team ([facility] Contact Info) Description 11/22/2024 Orders Only [facility] Min[facility] [address], [address] [place] [address] Emery Pastrana MD [address] [place] [address] Social History Tobacco Use Types [...] any clubs o r organizations such as islam groups, unions, fraternal or athletic groups, or [...] Never 07/31/2024 How often do you attend islam or mosque serv ices? Never 07/31/2024 Do you belong to any clubs o r organizations such as islam groups, unions, fraternal or athletic groups, or [...] hard 07/31/2024 [facility] - Occupational Stress Questionnaire Answer Date [...] in a mcc (including now)? No 10/22/2024 [facility] Utilities Answer Date Recorded In the past [...] Have you had a drink first t terir in the morning (EYE-HOTEL RESERVATIONIST) to steady your nerves or to get [...] documented as of this encounter Care Teams Candle Maker Relationship Specialty Start Date End Date Pcp, [place] [address] PCP - General Family Medicine 07/26/21 documented as of this encounter
--- OUTSIDE RECORDS SUMMARY | 2025-01-09 20:34 | XMS_ITS | Encounter Summary ---
Author Organization [facility] Address [address] [place] [address] Care Team Providers Care Film Inspector Name Role Phone Pcp, No Primary Care Provider Unavailabl e Encounter Details Date Type Department Care Team (Late st Contact Info) Description 12/03/2024 Patient Outreach [place] [facility] Special[facility] [address] [place] [address] Tracee Negrete Social History Tobacco Use Types [...] answer 05/07/2024 How often do you attend [facility] or jehovah's witness services? Patient unable to answer 05/07/2024 Do [...] How often do you attend sabianist or jehovah's witness serv ices? Never 07/31/2024 Do you belong [...] medical care, and heating? Very hard 07/31/2024 [facility] [place] of Occupat ional Health - Occupational Stress [...] any time in the past 12 m [facility], were you homeless or living in a fpc (including now)? 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 0 03/16/2022 CAGE Questionnaire Score 0 023 Sex and Gender Information Value Date Recorded Sex Assigned at Not on file Legal Sex Male 7:46 PM EDT Gender Identity Not on file Sexual Orientation Not on file documented as of this encounter Miscellaneous Notes * Progress Notes - Tracee Negrete - 12/03/2024 3:20 PM EDT Contact attempt: Attempt 5 since beginning [employer] workflow. SW is attempting to connect pt to HCV care. Pt was found to have HCV RNA+ result in previous lab history. Outcome of contact attempt is Available Pt. missed 12/02/2024 [facility] appointment and cancelled his 12/18/2024 [facility] appointment. [id number] spoke to pt. Pt. reports that he is in care with his PCP, Dr. Kayden Verduzco, at [facility] in [place], [place]. Next f/u on 06/03/2025 to check on pt.'s tx completion status, SVR labs, [facility] provider visit. documented in this encounter Plan of Treatment [...] documented as of this encounter Care Teams Film Inspector Relationship Specialty Start Date End Date Pcp, [place] [address] PCP - General Family Medicine 07/26/21 documented as of this encounter
--- OUTSIDE RECORDS SUMMARY | 2025-01-09 20:34 | XMS_ITS | Encounter Summary ---
Author Organization [facility] Address [address] [place] [address] Care Team Providers Care Pattern Illustrator Name Role Phone Pcp, No Primary Care Provider UnavailCarole Tim LPN Unavailable Unavailable Encounter Details Date Type Department Care Team (Late st Contact Info) Description 08/04/2024 Lab Requisition [facility] [address] [place] [address] Popeye Fernando MD [address] [place] [phone] Encounter for general adult medical examination without [...] you attend [facility] or latter day services? Patient unable to answer 05/07/2024 Do [...] How often do you attend druze or latter day serv ices? Never 07/31/2024 Do you belong [...] medical care, and heating? Very hard 07/31/2024 [facility] of Occupat ional [facility] - Occupational Stress Questionnaire Answer [...] any time in the past 12 m [facility], were you homeless or living in a snf (including now)? Yes 07/31/2024 CAGE ASSESSMENT Answer [...] drink first t terri in the morning (EYE-PARTS REMOVER) to steady your nerves or to get rid of a hangover? 0 03/16/2022 CAGE Questionnaire Score 0 023 Utilities Answer Date Recorded In the past 12 months has e [employer], gas, oil, or water [employer] threatened to shut off services in your [...] 8:00 PM EDT Yaneth De Santiago RN 2. Non-Specific Active Suicidal Thoughts (Past 1 Month) No 08/06/2024 8:00 PM EDT Yaneth De Santiago RN 6. Suicidal Behavior (Lifetime) No 08/06/2024 8:00 [...] ant Staphylococcus aureus(AA) 08/06/2024 7:10 AM EDT [facility] Comment:Previously isolated, still present in culture. Swab (Nares and Annetta Rectal) 08/04/2024 5:45 PM EDT 08/04/2024 6:14 PM EDT Narrative [facility] - 08/06/2024 7:10 AM EDT This test was developed and its performance characteristics determined by the [facility]. Although the media is FDA-approved, it is not FDA-approved for all specimen types submitted. The FDA has determined that such clearance or approval is not necessary. This test is used for surveillance purposes. It should not be regarded as investigational or for research. The [facility] is certified under the Clinical Laboratory Improvement Amendments of 1988 (CLIA-88) as qualified to perform high complexity clinical laboratory testing. Popeye Fernando MD LAB MICROBIOLOGY - GEN ERAL ORDERABLES Final Result [facility] [address] [place] [address] documented in this encounter Visit Diagnoses Diagnosis [...] documented as of this encounter Care Teams Pattern Illustrator Relationship Specialty Start Date End Date Pcp, No [address] [place] [address] PCP - General Family Medicine 07/26/21 Carole Avila LPN None None TCM Nurse 10/22/24 11/21/24 documented as of this encounter
[2025-01-09 20:35] VITALS: PULSE 104
--- NOTE | 2025-01-09 20:42 | ED_ITS ---
Discharge Plan Disposition Patient Disposition: Xfer Other Condition: Good Prescriptions Prescriptions: No Action cyclobenzaprine 10 mg tablet 10 mg PO TID PRN (Reason: muscle spasm) Qty: 60 1RF quetiapine 25 mg tablet 25 mg PO HS Qty: 30 2RF nifedipine [Procardia XL] 30 mg tablet extended release 24hr 30 mg PO DAILY Qty: 30 2RF carvedilol 25 mg tablet 25 mg PO BID Qty: 60 5RF buprenorphine-naloxone 8-2 mg tablet, sublingual 2 tab sublingual DAILY Patient Comments: DISSOLVE 2 TABLETS UNDER THE TONGUE ONCE DAILY sevelamer carbonate 800 mg tablet 800 mg PO TID Patient Comments: TAKE 1 TABLET BY MOUTH THREE TIMES A DAY WITH MEALS lisinopril 20 mg tablet 20 mg PO DAILY Qty: 30 0RF methocarbamol 500 mg tablet 500 mg PO TID Qty: 90 0RF trazodone 100 mg tablet 100 mg PO DAILY Qty: 30 0RF pantoprazole 40 mg tablet,delayed release (DR/EC) 40 mg PO DAILY Qty: 30 0RF Referrals Follow up/Referrals: Kayden Verduzco DO [Primary Care Provider, Family Practice] - See instructions Clinical Impressions Clinical Impression: Pancreatitis, ESRD on dialysis Print Language Print Language: Swedish Discharge ED Provider: Franco Lechuga Adult HPI <ASAEL Smith - Last Filed: 01/09/25 22:03> General Chief complaint: Chest Pain Stated complaint: Chest Pain Time Seen by Provider: 01/09/25 20:30 Mode of Arrival: Ambulatory Source of Information: Patient Description of Symptoms (Recalled from ER Triage Doc. by RN): Pt reports CP that has been ongoing for approx 2 days that has gotten worse since his PCP appointment at 1600. Pt rates pain 8/10 that comes and goes. Pt states pain radiates into low back. History of Present Illness HPI narrative: 45-year-old male presents the emergency department with multiple medical complaints, most notable being some chest pain/midepigastric pain with radiation to his back that occurred for the last 2 days and is worsened today this prompted emergency department visit, he endorses nausea no vomiting, he endorses 1 week history of fatigue malaise, bilateral lower extremity myalgias, low back pain, and a history yesterday of his left upper extremity more localized in his hand and fingers where they were drawing up and spasming , patient denies any fever or chills, admits to chest pain, denies any overt shortness of breath, denies any constipation or diarrhea last bowel movement was yesterday, patient does make urine, patient has ESRD and is on dialysis with hemodialysis port, in his chest, received dialysis Sunday and Sunday, patient still makes urine and denies any urinary type hematology, denies any hematuria hematochezia melena hematemesis or hemoptysis, other past medical history is consistent with data deficient history of alcohol use disorder, however patient the bedside denies any alcohol use, does admit to current everyday tobacco use, denies any illicit drug use, CHF, liver cirrhosis, history of ascites requiring paracentesis, remote history of pancreatitis, data deficient history of Suboxone use, which the patient states he is no longer taking, hypertension, GERD, MDD/OSMAN. Initial triage vitals are notable for tachycardia otherwise unremarkable Please note that above description of symptoms, in this electronic medical record under categorization of recalled from ER triage doctor by RN are reflective of an initial nursing assessment, however, is not reflective of my full history and physical exam that was personally taken and clarified. Consequentially, this preceding description of symptoms, which may include the patient's categorized chief complaint in the EMR, do not reflect my personal clinical impression, and the ultimate description of history of present illness and patient stated complaints should be deferred to this section of the note. Unless stated otherwise or congruent with this section of the note, additional signs, symptoms, or incongruence should be interpreted as inaccurate with my clinical impression. Onset (ago): day(s) Related Data Home Medications ?Medication ?Instructions ?Recorded ?Confirmed buprenorphine 8 mg-naloxone 2 mg 2 tab sublingual DELPHINE Y 11/21/24 01/09/25 sublingual tablet sevelamer carbonate 800 mg tablet 800 mg PO TID 01/09/25 Previous Rx's ?Medication ?Instructions ?Recorded lisinopril 20 mg tablet 20 mg PO DAILY #30 tabs 11/05 08/29 methocarbamol 500 mg tablet 500 mg PO TID #90 tabs pantoprazole 40 mg tablet,delayed 40 mg PO DAILY #30 t abs 11/21/24 release trazodone 100 mg tablet 100 mg PO DAILY #30 tabs carvedilol 25 mg tablet 25 mg PO BID #60 tabs cyclobenzaprine 10 mg tablet 10 mg PO TID PRN muscle s pasm #60 01/09/25 tabs nifedipine 30 mg tablet,extended 30 mg PO DAILY #30 ta bs 01/09/25 release 24 hr (Procardia XL) quetiapine 25 mg tablet 25 mg PO HS #30 tabs 5 Allergies Allergy/AdvReac Type Severity Reaction Status Date / Time Erythromycin Allergy Unknown NA-NAUSEA/V Uncoded 01/09/25 14:13 OMITING <Franco Lechuga, - Last Filed: 01/09/25 22:49> History of Present Illness HPI narrative: 45-year-old male presents the emergency department with multiple medical complaints, most notable being some chest pain/midepigastric pain with radiation to his back that occurred for the last 2 days and is worsened today this prompted emergency department visit, he endorses nausea no vomiting, he endorses 1 week history of fatigue malaise, bilateral lower extremity myalgias, low back pain, and a history yesterday of his left upper extremity more localized in his hand and fingers where they were drawing up and spasming , patient denies any fever or chills, admits to chest pain, denies any overt shortness of breath, denies any constipation or diarrhea last bowel movement was yesterday, patient does make urine, patient has ESRD and is on dialysis with hemodialysis port, in his chest, received dialysis Sunday and Sunday, patient still makes urine and denies any urinary type hematology, denies any hematuria hematochezia melena hematemesis or hemoptysis, other past medical history is consistent with data deficient history of alcohol use disorder, however patient the bedside denies any alcohol use, does admit to current everyday tobacco use, denies any illicit drug use, CHF, liver cirrhosis, history of ascites requiring paracentesis, remote history of pancreatitis, data deficient history of Suboxone use, which the patient states he is no longer taking, hypertension, GERD, MDD/OSMAN. Initial triage vitals are notable for tachycardia otherwise unremarkable. Please note that above description of symptoms, in this electronic medical record under categorization of recalled from ER triage doctor by RN are reflective of an initial nursing assessment, however, is not reflective of my full history and physical exam that was personally taken and clarified. Consequentially, this preceding description of symptoms, which may include the patient's categorized chief complaint in the EMR, do not reflect my personal clinical impression, and the ultimate description of history of present illness and patient stated complaints should be deferred to this section of the note. Unless stated otherwise or congruent with this section of the note, additional signs, symptoms, or incongruence should be interpreted as inaccurate with my clinical impression. [facility] <ASAEL Smith - Last Filed: 01/09/25 22:03> [facility] Disclaimer: The information contained in this section may have been updated after the patient was seen, as this information can be updated by other users. Medical History GERD (gastroesophageal reflux disease) Liver failure Heart failure Hypertension CKD (chronic kidney disease) stage 4, GFR 15-29 ml/min Surgical History H/O endoscopy Social History Smoking Status: Current every day smoker tobacco type: cigarettes packs per day: 1 smoking status start date: 17 yo alcohol intake: never substance use type: former substance user, crack/cocaine, heroin and opiates current occupational status: unemployed Travel in the last 8 weeks?: None Have you lived/traveled outside [place] in past 30 days?: No Contact w/someone who lives/traveled outside US past 30 days?: No Exposure to someone with infectious disease in past 14 days?: No Do you have a fever (greater than 100.4 F or 38 C)?: No Have you tested positive for COVID-19?: No Exposed to someone with COVID-19 in past 14 days?: No Do you have a sore throat?: No Do you have a cough?: No Do you have any weakness?: No Do you have any diarrhea?: No Are you experiencing any unusual bleeding?: No Do you have any muscle aches/pain?: No Do you have any abdominal pain?: No Are you experiencing loss of taste or smell?: No Other Medical History Have you received the Pneumonia Vaccine: No <ASAEL Smith - Last Filed: 01/09/25 22:03> ROS Obtained: Yes All systems reviewed & no additional complaints except as documented Physical Exam <ASAEL Smith - Last Filed: 01/09/25 22:03> General General appearance: alert and in no apparent distress Head Head exam: atraumatic and normocephalic Eye Eye exam: Present PERRL and EOMI ENT ENT exam: Present mucous membranes moist Neck Neck exam: Present normal inspection Chest Chest inspection: Present normal inspection, symmetric chest wall rise and other (Hemodialysis port a catheter in the right upper chest, seems to be in place, no pain to palpation to the area) Respiratory Respiratory exam: Present normal lung sounds bilaterally; Absent respiratory distress, wheezes, stridor or accessory muscle use Cardiovascular Cardiovascular exam: Present regular rate and normal rhythm Abdominal Exam Abdominal exam: Present soft, tenderness and guarding; Absent rebound or rigidity Abdominal tenderness: Present LUQ, epigastrium and moderate Extremities Exam Extremities exam: Present normal inspection Neurological Exam Neurological exam: Present alert and oriented X3 Psychiatric Psychiatric exam: Present normal affect Skin Skin exam: Present warm and dry Medical Decision Making <ASAEL Smith - Last Filed: 01/09/25 22:03> Medical Records Medical records reviewed: Yes I reviewed the patient's medical records. Screening: Per USPSTF and CDC recommendations, given the prevalence of disease in our region, it is our hospital?s policy to screen for HIV and viral Hepatitis for all patients aged 18 and over and those with ongoing risk factors. Christopher Inquiry Pt receiving controlled substance: No Christopher was queried for this patient: No Vital Signs: 01/09/25 20:27 01/09/25 20:35 01/09/25 21:00 Temperature 98.7 F Temperature Source Oral Pulse Rate 104 H 103 H Pulse Rate [Left] 104 H Respiratory Rate 16 21 Blood Pressure 147/115 H Blood Pressure [Right Arm] 179/118 H Blood Pressure Mean 136 Blood Pressure Mean [Right Arm] 138 Blood Pressure Source [Right Arm] Automatic Cuff Blood Pressure Position [Right Arm] Sitting 02 Sat by Pulse Oximetry 97 96 Oxygen Delivery Method Room Air 01/09/25 22:00 01/09/25 22:30 Temperature Temperature Source Pulse Rate 95 H 95 H Pulse Rate [Left] Respiratory Rate 17 20 Blood Pressure 181/114 H 187/118 H Blood Pressure [Right Arm] Blood Pressure Mean 131 127 Blood Pressure Mean [Right Arm] Blood Pressure Source [Right Arm] Blood Pressure Position [Right Arm] 02 Sat by Pulse Oximetry 96 96 Oxygen Delivery Method Lab Data Lab results reviewed: Yes I reviewed the patient's lab results. Lab Results 01/09/25 20:25: WBC 7.9, RBC 4.36 L, Hgb 12.7 L, Hct 38.8 L, MCV 89.0, MCH 29.1, MCHC 32.7, RDW 16.9, Plt Count 190, MPV 10.1, Neut % (Auto) 60.5, Lymph % (Auto) 22.6, [place] % (Auto) 12.2 H, Eos % (Auto) 3.8, Baso % (Auto) 0.5, Neut # (Auto) 4.8, Lymph # (Auto) 1.8, [place] # (Auto) 1.0, Eos # (Auto) 0.3, Baso # (Auto) 0.0, PT 11.4, INR 1.03, APTT 26.5, Sodium 134 L, Potassium 5.4 H, Chloride 99, Carbon Dioxide 18 L, Anion Gap 22.4 H, BUN 69 H, Creatinine 8.00 H, Estimated Creat Clear 12, Estimated GFR 7 L*, Est GFR ( Amer) 9 L*, Glucose 121 H, C alcium 7.9 L, Phosphorus 10.5 H, Magnesium 1.8, Total Bilirubin 0.6, AST 19, ALT 11 L, Alkaline Phosphatase 108, Troponin I 0.06 H, NT-Pro-B Natriuret Pep > 41434 H, Total Protein 8.3 H, Albumin 4.2, Globulin 4.1 H, Albumin/Globulin Ratio 1.0 L, Lipase 783 H, Plasma/Serum Alcohol < 10 01/09/25 21:09: VBG pH 7.40, VBG pCO2 34.2 L, VBG pO2 129.8 H, VBG HCO3 20.6 L, VBG Total CO2 21.6 L, VBG O2 Saturation 98.6 H, VBG Base Excess -4.3 L, VBG Lactic Acid 1.8 01/09/25 21:17: Urine Color Yellow, Urine Appearance Clear, Urine pH 8.0, Ur Specific [place] 1.020, Urine Protein 3+ A, Urine Glucose (UA) 1+, Urine Ketones Negative, Urine Blood Negative, Urine Nitrate Negative, Urine Bilirubin Negative, Urine Urobilinogen 0.2, Ur Leukocyte Esterase Negative, Urine RBC 3-5, Urine WBC 10-20, Ur Squamous Epith Cells 5-10, Urine Bacteria Trace, Urine Mucus 1+ 01/09/25 20:25 01/09/25 20:25 Orders (Tests/Meds): ED MEDICATIONS Discontinued Medications Generic Name Dose Route Start Last Admin Trade Name Freq PRN Reason Stop Dose Admin Hydromorphone HCl 0.5 mg 01/09/25 21:13 01/09/25 21:21 Hydromorphone 2mg/Ml Syringe IV 01/09/25 21:14 0.5 mg ONCE ONE Administration Hydromorphone HCl 0.5 mg 01/09/25 22:07 01/09/25 22:36 Hydromorphone 2mg/Ml Syringe IV 01/09/25 22:08 0.5 mg ONCE ONE Administration Ondansetron HCl 4 mg 01/09/25 21:15 01/09/25 21:21 Ondansetron 4mg/2ml Vial IV 01/09/25 21:16 4 mg ONCE ONE Administration ORDERS Category Date Time Status CT abdomen pelvis wo con Stat Cat Scan 01/09/25 21:04 Completed XR chest portable Stat Exams 01/09/25 20:54 Completed Complete Blood Count Auto Diff Stat Lab 01/09/25 20:25 Completed Comprehensive Metabolic Panel Stat Lab 01/09/25 20:25 Completed Ethyl Alcohol Stat Lab 01/09/25 20:25 Completed Lactic Acid Stat Lab 01/09/25 20:54 Ordered Lipase Stat Lab 01/09/25 20:25 Completed Magnesium Stat Lab 01/09/25 20:25 Completed NT Pro Brain Natriuretic Pep. Stat Lab 01/09/25 20:25 Completed PHOS [Phosphorous] Stat Lab 01/09/25 20:25 Completed PT INR [Prothrombin Time INR] Stat Lab 01/09/25 20:25 Completed PTT [Activated Partial Thrombo Time] Stat Lab 01/09/25 20:25 Completed Troponin I Q3H Lab 01/09/25 23:54 Ordered Troponin I Q3H Lab 01/10/25 02:54 Ordered Troponin I Stat Lab 01/09/25 20:25 Completed Urinalysis and Microscopic Stat Lab 01/09/25 21:17 Completed Urine Culture Stat Micro 01/09/25 21:17 Received VBG [Venous Blood Gas] Stat RT 01/09/25 21:09 Completed Medical Decision Narrative: 45-year-old male presents the emergency department with a myriad of symptomatology, see HPI for detailed past medical history, differential diagnose include but not limited to, acute pancreatitis, colitis, ileitis, cardiac arrhythmia, electrolyte disturbance, other acid-base disturbance, acute UTI, acute pyelonephritis, pneumonia, ACS among others. Will obtain EKG, chest x-ray, basic laboratory studies lactic acid lipase level magnesium level, phosphorus level, proBNP PT/INR, troponin, ethyl alcohol level, CT abd pelvis without contrast, urinalysis and VBG. CBC is unremarkable CMP is notable for mild hyponatremia 134, minimal anion gap 22.4, BUN elevation at 69 and creatinine elevation 8, GFR is 7, hypocalcemia 7.9, lipase elevation at 783. Patient complaining of some pain, will give 0.5 IV Dilaudid and 4 mg IV Zofran for pain and nausea. Coags within normal limits Troponin is elevated at 0.06, proBNP is over 30,000. I reviewed the patient's chest x-ray along the corresponding radiologic report, pleural-parenchymal scarring in the lung base with subsegmental atelectasis is present without consolidations or pleural effusions that project above the diaphragm. Alcohol level within normal limits Urinalysis is notable for 3+ proteinuria, negative hematuria, negative nitrites, 3-5 RBCs 10-20 WBCs, 5-10 squamous epithelial cells, trace bacteria, 1+ urine mucus. pH on patient's VBG is 7.4, pCO2 is 34.2, bicarb is 20.6 which decreased, otherwise unremarkable VBG. I reviewed the patient's CT and pelvis without contrast on the corresponding radiologic report, subtle inflammatory stranding and fluid at the pancreatic head and descending duodenum may represent groove pancreatitis versus duodenitis fines could be also related to ascites. I discussed this patient's case with attending physician Dr. Lechuga, at shift change he will be assuming amended the patient's care/workup. Disposition is pending [facility] consultation versus transfer for pancreatitis and need for dialysis. <Franco Lechuag, DO - Last Filed: 01/09/25 22:49> Vital Signs: 01/09/25 20:27 01/09/25 20:35 01/09/25 21:00 Temperature 98.7 F Temperature Source Oral Pulse Rate 104 H 103 H Pulse Rate [Left] 104 H Respiratory Rate 16 21 Blood Pressure 147/115 H Blood Pressure [Right Arm] 179/118 H Blood Pressure Mean 136 Blood Pressure Mean [Right Arm] 138 Blood Pressure Source [Right Arm] Automatic Cuff Blood Pressure Position [Right Arm] Sitting 02 Sat by Pulse Oximetry 97 96 Oxygen Delivery Method Room Air 01/09/25 22:00 01/09/25 22:30 Temperature Temperature Source Pulse Rate 95 H 95 H Pulse Rate [Left] Respiratory Rate 17 20 Blood Pressure 181/114 H 187/118 H Blood Pressure [Right Arm] Blood Pressure Mean 131 127 Blood Pressure Mean [Right Arm] Blood Pressure Source [Right Arm] Blood Pressure Position [Right Arm] 02 Sat by Pulse Oximetry 96 96 Oxygen Delivery Method Lab Data Lab Results 01/09/25 20:25: WBC 7.9, RBC 4.36 L, Hgb 12.7 L, Hct 38.8 L, MCV 89.0, MCH 29.1, MCHC 32.7, RDW 16.9, Plt Count 190, MPV 10.1, Neut % (Auto) 60.5, Lymph % (Auto) 22.6, Carl[place] % (Auto) 12.2 H, Eos % (Auto) 3.8, Baso % (Auto) 0.5, Neut # (Auto) 4.8, Lymph # (Auto) 1.8, [place] # (Auto) 1.0, Eos # (Auto) 0.3, Baso # (Auto) 0.0, PT 11.4, INR 1.03, APTT 26.5, Sodium 134 L, Potassium 5.4 H, Chloride 99, Carbon Dioxide 18 L, Anion Gap 22.4 H, BUN 69 H, Creatinine 8.00 H, Estimated Creat Clear 12, Estimated GFR 7 L*, Est GFR ( Amer) 9 L*, Glucose 121 H, C alcium 7.9 L, Phosphorus 10.5 H, Magnesium 1.8, Total Bilirubin 0.6, AST 19, ALT 11 L, Alkaline Phosphatase 108, Troponin I 0.06 H, NT-Pro-B Natriuret Pep > 29838 H, Total Protein 8.3 H, Albumin 4.2, Globulin 4.1 H, Albumin/Globulin Ratio 1.0 L, Lipase 783 H, Plasma/Serum Alcohol < 10 01/09/25 21:09: VBG pH 7.40, VBG pCO2 34.2 L, VBG pO2 129.8 H, VBG HCO3 20.6 L, VBG Total CO2 21.6 L, VBG O2 Saturation 98.6 H, VBG Base Excess -4.3 L, VBG Lactic Acid 1.8 01/09/25 21:17: Urine Color Yellow, Urine Appearance Clear, Urine pH 8.0, Ur Specific [place] 1.020, Urine Protein 3+ A, Urine Glucose (UA) 1+, Urine Ketones Negative, Urine Blood Negative, Urine Nitrate Negative, Urine Bilirubin Negative, Urine Urobilinogen 0.2, Ur Leukocyte Esterase Negative, Urine RBC 3-5, Urine WBC 10-20, Ur Squamous Epith Cells 5-10, Urine Bacteria Trace, Urine Mucus 1+ Orders (Tests/Meds): ED MEDICATIONS Discontinued Medications Generic Name Dose Route Start Last Admin Trade Name Freq PRN Reason Stop Dose Admin Hydromorphone HCl 0.5 mg 01/09/25 21:13 01/09/25 21:21 Hydromorphone 2mg/Ml Syringe IV 01/09/25 21:14 0.5 mg ONCE ONE Administration Hydromorphone HCl 0.5 mg 01/09/25 22:07 01/09/25 22:36 Hydromorphone 2mg/Ml Syringe IV 01/09/25 22:08 0.5 mg ONCE ONE Administration Ondansetron HCl 4 mg 01/09/25 21:15 01/09/25 21:21 Ondansetron 4mg/2ml Vial IV 01/09/25 21:16 4 mg ONCE ONE Administration ORDERS Category Date Time Status CT abdomen pelvis wo con Stat Cat Scan 01/09/25 21:04 Completed XR chest portable Stat Exams 01/09/25 20:54 Completed Complete Blood Count Auto Diff Stat Lab 01/09/25 20:25 Completed Comprehensive Metabolic Panel Stat Lab 01/09/25 20:25 Completed Ethyl Alcohol Stat Lab 01/09/25 20:25 Completed Lactic Acid Stat Lab 01/09/25 20:54 Ordered Lipase Stat Lab 01/09/25 20:25 Completed Magnesium Stat Lab 01/09/25 20:25 Completed NT Pro Brain Natriuretic Pep. Stat Lab 01/09/25 20:25 Completed PHOS [Phosphorous] Stat Lab 01/09/25 20:25 Completed PT INR [Prothrombin Time INR] Stat Lab 01/09/25 20:25 Completed PTT [Activated Partial Thrombo Time] Stat Lab 01/09/25 20:25 Completed Troponin I Q3H Lab 01/09/25 23:54 Ordered Troponin I Q3H Lab 01/10/25 02:54 Ordered Troponin I Stat Lab 01/09/25 20:25 Completed Urinalysis and Microscopic Stat Lab 01/09/25 21:17 Completed Urine Culture Stat Micro 01/09/25 21:17 Received VBG [Venous Blood Gas] Stat RT 01/09/25 21:09 Completed Medical Decision Narrative: 45-year-old male presents the emergency department with a myriad of symptomatology, see HPI for detailed past medical history, differential diagnose include but not limited to, acute pancreatitis, colitis, ileitis, cardiac arrhythmia, electrolyte disturbance, other acid-base disturbance, acute UTI, acute pyelonephritis, pneumonia, ACS among others. Will obtain EKG, chest x-ray, basic laboratory studies lactic acid lipase level magnesium level, phosphorus level, proBNP PT/INR, troponin, ethyl alcohol level, CT abd pelvis without contrast, urinalysis and VBG. CBC is unremarkable CMP is notable for mild hyponatremia 134, minimal anion gap 22.4, BUN elevation at 69 and creatinine elevation 8, GFR is 7, hypocalcemia 7.9, lipase elevation at 783. Patient complaining of some pain, will give 0.5 IV Dilaudid and 4 mg IV Zofran for pain and nausea. Coags within normal limits Troponin is elevated at 0.06, proBNP is over 30,000. I reviewed the patient's chest x-ray along the corresponding radiologic report, pleural-parenchymal scarring in the lung base with subsegmental atelectasis is present without consolidations or pleural effusions that project above the diaphragm. Alcohol level within normal limits Urinalysis is notable for 3+ proteinuria, negative hematuria, negative nitrites, 3-5 RBCs 10-20 WBCs, 5-10 squamous epithelial cells, trace bacteria, 1+ urine mucus. pH on patient's VBG is 7.4, pCO2 is 34.2, bicarb is 20.6 which decreased, otherwise unremarkable VBG. I reviewed the patient's CT and pelvis without contrast on the corresponding radiologic report, subtle inflammatory stranding and fluid at the pancreatic head and descending duodenum may represent groove pancreatitis versus duodenitis finemadhu could be also related to ascites. I discussed this patient's case with attending physician Dr. Lechuga, at shift change he will be assuming amended the patient's care/workup. Disposition is pending [facility] consultation versus transfer for pancreatitis and need for dialysis. I was consulted by the CALIN, and we discussed the complexity of problems being addressed. I approved the treatment and management plan for this patient's care in the emergency department, thus performing a substantive portion of the medical decision making. Franco Lechuga, DO This is Dr. Lechuga. I did independently evaluate this patient and obtained collateral history. He tells me that he has had worsening epigastric abdominal pain over the last couple days. He also reports some pain in the right side of his back as well as diffuse bodyaches. He has a history of pancreatitis as well as a stage renal disease and receives dialysis on Sunday, , and Sunday. The patient states that he does not currently drink alcohol. Patient's workup was largely revealing for pancreatitis with an elevated lipase, epigastric abdominal tenderness, and CT scan findings that were compatible with inflammatory stranding around the pancreas consistent with pancreatitis. Additionally, the patient did state that he had some very vague chest pain that is nonexertional in nature and his initial troponin 0.06 which could be confounded by his end-stage renal disease but could also be indicative of NSTEMI. His EKG was personally interpreted by me and demonstrates sinus tachycardia rate of 100 bpm, normal axis, no WI prolongation, narrow QRS, no QTc prolongation. No ST ovation or depression. No overt signs of ischemia or arrhythmia. We do not have dialysis capabilities here at our hospital. Therefore I had an interactive discussion with the internal medicine service at [facility] and spoke directly with Dr. Carline Blankenship who graciously agreed to accept the patient for transfer to their hospital for further management. Patient remained stable while under my care in the emergency department. He was ultimately transferred by EMS in stable condition Critical Care <ASAEL Smith - Last Filed: 01/09/25 22:03> Critical Care Time Critical Care Time: No
--- NOTE | 2025-01-09 20:54 | XR_ITS ---
PROCEDURE INFORMATION: Exam: XR Chest Exam date and time: 01/09/2025 9:03 PM Age: 45 years old Clinical indication: Pain; Shortness of breath; Chest pressure; Additional info: Shortness of air and chest pain TECHNIQUE: Imaging protocol: Radiologic exam of the chest. Views: 1 view. COMPARISON: CR XR CHEST PORTABLE 11/26/2024 8:24 PM FINDINGS: Tubes, catheters and devices: The tip of the right central line overlies the cavoatrial junction. Lungs: Pleuroparenchymal scarring of the lung bases with subsegmental atelectasis is present without consolidations or pleural effusions that project above the diaphragm. Pleural spaces: Unremarkable. No pleural effusion. No pneumothorax. Heart/Mediastinum: Unremarkable. No cardiomegaly. Bones/joints: Unremarkable. IMPRESSION: Pleuroparenchymal scarring of the lung bases with subsegmental atelectasis is present without consolidations or pleural effusions that project above the diaphragm.
[2025-01-09 21:00] VITALS: BP 147/115; PULSE 103; RESP 21; O2SAT 96
[2025-01-09 21:00] LABS: Hematocrit 38.8 % (42.0-52.0); Hemoglobin 12.7 g/dL (14.1-18.0); Immature Granulocytes % 0.4 %; Mean Corpuscular HGB Conc 32.7 g/dL (31.8-35.4); Mean Corpuscular Hemoglobin 29.1 pg (27.0-31.2); Mean Corpuscular Volume 89.0 fl (80-94); Nucleated Red Blood Cells % 0 %; Platelet Count 190 K/mm3 (142-424); Red Blood Count 4.36 M/mm3 (4.60-6.20); Red Cell Distribution Width-SD 54.4 fL; White Blood Count 7.9 K/mm3 (4.8-10.8)
[2025-01-09 21:04] LABS: Alanine Aminotransferase 11 U/L (12-78); Albumin Level 4.2 g/dl (3.5-5.0); Albumin/Globulin Ratio 1.0 (1.1-1.8); Alkaline Phosphatase 108 U/L (38-126); Anion Gap 22.4 mEq/L (5-15); Aspartate Amino Transferase 19 U/L (17-59); Bilirubin,Total 0.6 mg/dl (0.2-1.3); Blood Urea Nitrogen 69 mg/dl (9-20); Calcium 7.9 mg/dl (8.4-10.2); Carbon Dioxide 18 mmol/L (22.0-30.0); Chloride 99 mmol/L (98-107); Creatinine Clearance Estimated 12 mL/min (50-200); Estimated Glomerular Filt Rate 7 ml/min (>60); GFR (African American) 9 ML/MIN (>60); Globulin 4.1 g/dL (1.3-3.2); Glucose 121 mg/dl (74-100); Magnesium 1.8 mg/dl (1.6-2.3); Potassium 5.4 mmoL/L (3.5-5.1); Sodium 134 mmol/L (136-145); Total Protein,Serum 8.3 g/dl (6.3-8.2)
--- NOTE | 2025-01-09 21:04 | CT_ITS ---
PROCEDURE INFORMATION: Exam: CT Abdomen And Pelvis Without Contrast Exam date and time: 01/09/2025 9:25 PM Age: 45 years old Clinical indication: Abdominal pain; Additional info: Diffuse abd pain, HX of pancreatitis diaylsis PT TECHNIQUE: Imaging protocol: Computed tomography of the abdomen and pelvis without contrast. Radiation optimization: All CT scans at this facility use at least one of these dose optimization techniques: automated exposure control; mA and/or kV adjustment per patient size (includes targeted exams where dose is matched to clinical indication); or iterative reconstruction. COMPARISON: CT ABDOMEN PELVIS WO CON 11/26/2024 8:29 PM FINDINGS: Lungs: Dependent bilateral lung base opacities favor atelectasis. Liver: Normal. No mass. Gallbladder and biliary ducts: Normal. No calcified stones. No ductal dilation. Pancreas: Subtle inflammatory stranding and fluid at the pancreatic head and descending duodenum may represent groove pancreatitis versus duodenitis. Spleen: Normal. No splenomegaly. Adrenal glands: Normal. No mass. Kidneys and ureters: Normal. No hydronephrosis. Stomach and bowel: See Pancreas finding. Appendix: No evidence of appendicitis. Intraperitoneal space: Moderate volume ascites surrounding the liver and spleen extent of the pelvis again press. Findings could also be related to ascites. Vasculature: Moderate calcific atherosclerotic disease of the abdominal aorta without aneurysmal dilatation is present. Lymph nodes: Unremarkable. No enlarged lymph nodes. Urinary bladder: Bladder is decompressed limiting its evaluation. Reproductive: Unremarkable as visualized. Bones/joints: Unremarkable. No acute fracture. Soft tissues: Normal. IMPRESSION: Subtle inflammatory stranding and fluid at the pancreatic head and descending duodenum may represent groove pancreatitis versus duodenitis. Findings could also be related to ascites.
[2025-01-09 21:07] LABS: Creatinine,Serum 8.00 mg/dl (0.66-1.25); INR 1.03 (0.9-1.1); Lipase 783 U/L (23-300); Prothrombin Time 11.4 seconds (10.1-12.5)
--- NOTE | 2025-01-09 21:14 | PC.NURSE ---
Critical labs, Creatinine: 8.0 and Lipase: 783 called @2106, and CLIP LOADING MACHINE FEEDER notified @2106
[2025-01-09 21:16] LABS: NT Pro Brain Natriuretic Pep. > 30000 pg/mL (0-125); Troponin I 0.06 ng/ml (0.00-0.034)
[2025-01-09 21:16] LABS: Lactate Venous 1.8 mmol/L (0.4-2.0); VBG HCO3 20.6 mmol/L (23-30); VBG PCO2 34.2 mmol/L (35-51); VBG PH 7.40 mmol/L (7.31-7.41); VBG PO2 129.8 mmol/L (28-40)
[2025-01-09 21:20] LABS: Microscopic, Urine URINE MICROSCOPIC (MICROSCOPIC)
[2025-01-09] MEDS: HYDROMORPHONE 2MG/ML SYRINGE 0.5 MG IV ×2 (21:21→22:36)
[2025-01-09] MEDS: ONDANSETRON 4MG/2ML VIAL 4 MG IV (21:21)
[2025-01-09 21:25] LABS: Bilirubin,Urine Negative (Negative); Color,Urine YELLOW (Yellow); Glucose,Urine (UA) 1+ (Negative); Ketones,Urine Negative (Negative); Leukocyte Esterase,Urine Negative (Negative); PH,Urine 8.0 (5.0-8.5); Protein,Urine 3+ (Negative); Specific Gravity, Urine 1.020 (1.005-1.030); Urobilinogen,Urine 0.2 EU/dl (0.2)
[2025-01-09 21:30] LABS: Phosphorous 10.5 mg/dl (2.5-4.5)
[2025-01-09 21:33] LABS: Activated Partial Thrombo Time 26.5 seconds (22.8-30.6)
[2025-01-09 21:38] LABS: Bacteria,Urine Trace /lpf; Mucus,Urine 1+ /lpf
[2025-01-09 22:00] VITALS: BP 181/114; PULSE 95; RESP 17; O2SAT 96
--- NOTE | 2025-01-09 22:06 | PC.NURSE ---
Called [facility] for a possible pt xfer
[2025-01-09 22:30] VITALS: BP 187/118; PULSE 95; RESP 20; O2SAT 96
[2025-01-09 23:35] VITALS: BP 168/102; PULSE 101; RESP 14; TEMP 36.9; O2SAT 98
== END 2025-01-09 23:36 | disposition other institution (70) ==
PROVIDERS: Physician Assistant; Emergency Provider Student in an Organized Health Care Education/Training Program; PCP Internal Medicine
DX: R07.9 Chest pain, unspecified (principal); R10.13 Epigastric pain; N18.6 End stage renal disease; K85.90 Acute pancreatitis without necrosis or infection, unspecified; R00.0 Tachycardia, unspecified; F17.210 Nicotine dependence, cigarettes, uncomplicated; F10.11 Alcohol abuse, in remission; Z99.2 Dependence on renal dialysis
CPT/HCPCS: 71045; 74176; 80053; 80320; 81001; 82803; 83690; 83735; 83880; 84100; 84484; 85025; 85610; 85730; 87086; 93005; 96374; 96375; 96376; 99285; J1171; J2405

== ENCOUNTER 2025-01-23 10:28 | Emergency (ER) | payer OTHER, SELFPAY ==
[2025-01-23] VITALS (15 sets, daily range): BP systolic 161–209; BP diastolic 113–150; PULSE 102–116; RESP 15–31; TEMP 36.7–36.9; O2SAT 91–99; BMI 21.7
--- NOTE | 2025-01-23 10:26 | ECG_ITS ---
APPROVED REPORT Exam: Resting ECG HR:107 bpm ECG Measurements Heart Rate 107 AXES QRSd 92 QRS -18 QT 362 T 82 QTc 425 Conclusion ATRIAL FLUTTER/TACHYCARDIA WITH RAPID VENTRICULAR RESPONSE MODERATE T-WAVE ABNORMALITY, CONSIDER LATERAL ISCHEMIA [-0.1+ mV T-WAVE IN I/aVL/V5/V6] ABNORMAL ECG UNCONFIRMED REPORT Electronically signed by : Christian Marrero, 01/23/2025 15:18:33
--- OUTSIDE RECORDS SUMMARY | 2025-01-23 10:39 | XMS_ITS | Clinical Summary ---
Author Organization [facility] Address [address] [place] [address] Care Team Providers Care Supervisor Doping Name Role Phone Pcp, No Primary Care [...] day. 60 tablet 1 09/05/19 25 Active Additional Information Patient not taking.Reported on [...] under the tongue daily. 10/19/19 25 Active sevelamer carbonate (Renvela) 800 MG tabletIndications :ESRD on Dialysis Take 2 tablets by mouth 3 times a day with meals. Swallow tablet whole; do not crush, break, or chew. 10/18/19 25 Active traZODone (Desyrel) 50 MG tablet Take 1 tablet by mouth nightly. 30 tablet 10/18/19 25 Active lisinopril 20 MG tablet Take 1 tablet by mouth daily. 30 tablet 11/23/19 25 Active sodium zirconium cyclosilicate (Lokelma) 10 g packet Take 10 g by mouth 4 times a week. On non dialysis days 160 g 11 01/21/20 25 Active sodium zirconium cyclosilicate (Lokelma) 10 g packet Take 10 g by mouth 4 times a week. On non dialysis days 160 g 11 12/24/19 25 025 Discontin ued(Reord er) Active Problems Problem Noted Date Diagnosed Date [...] unspecified 05/06/2024 Opioid use disorder, severe, dependence 02/27/20 23 Swelling of joint of left wrist Resolved Problems Problem Noted Date Diagnosed Date Resolved Date Sepsis 03/15/2022 10/26/2024 Encounters * This document contains information received from the source organization and may not represent a complete record from that organization. Date Type Department Care Team Description 01/20/2025 Orders Only [facility] Bone & Mineral Metabolism [address], [address] [place] [phone] Katlyn Cano PA 12/23/2024 Orders Only [facility] Bone & Mineral Metabolism [address], [address] [place] [phone] Katlyn Cano PA 12/03/2024 Patient Outreach [facility] [place] [address] [place] [phone] Tracee Negrete 11/27/2024 Patient Outreach [address] [phone] Kalee Cardona 11/22/2024 Orders Only [facility] Nephrology, Bone & Mineral Metabolism [address], [address] [place] [address] Emery Pastrana MD 11/07/2024 Telephone [facility] Nephrology, Bone & Mineral Metabolism [address], [address] [place] [address] Emery Pastrana MD 11/07/2024 Telephone [facility] [place], [address] [place] [phone] Rehana Ross RN 10/28/2024 Patient Outreach [address] [phone] Tracee Negrete from Last 3 Months Social History Tobacco Use Types Packs/Day Years Used Date Smoking Tobacco: Every Day Cigarettes 1 18 Started: 2007 Passive Smoke Exposure: Past Smokeless [...] often do you attend chur ch or sabianism services? Patient unable to answer 05/07/2024 Do you belong to any clubs o r organizations such as episcopal groups, unions, [employer] or athletic groups, or school groups? Patient [...] How often do you attend episcopal or sabianism serv ices? Never 07/31/2024 Do you belong [...] care, and heating? Very hard 07/31/2024 [facility] of Occupat ional Health - [...] any time in the past 12 m [facility], were you homeless or living in a alf (including now)? No 10/22/2024 [facility] Utilities Answer Date Recorded In the past 12 months has [facility] [employer], gas, oil, or water company threatened to [...] drink first t terri in the morning (EYE-BATTERY SERVICE TECHNICIAN) to steady your nerves or to [...] 3 - Risk Dialysis 4-dose series) 2002 XEG-[id number]-12 Vaccine (1 - 2024- season) 2024 [facility]-Influenza Vaccine (#1) 2024 [facility]- SDOH Screenings 04/12/2025 [facility]-Adult SDOH Screenings 04/12/2025 10/13/2024 [facility]-Zoster Vaccines (1 of 2) 01/04/2032 [facility]-HIV Screening Completed 08/01/2024, , 05/06/2024, Additional history exists HPV Vaccines (No Doses Required) Completed [facility]-HIB Vaccines Aged Out No longer e [...] Care Plan Autogenerated Problem No Kai Ying, operating engineer apprentice Procedure Name Priority Date/Time Associated Diagnosis Comments HIV 1/2 ANTIBODY/ANTIGEN SCREEN WITH REFLEX TO HIV I/II DIFFERENTIATION Routine 08/01/2024 9:13 AM EDT from Last 3 Months or Most Recently Relevant to Health Maintenance Results * HIV 1 & 2 Antibody/Antigen Screen (08/01/2024 9:13 AM EDT) HIV 1 & 2 Antibody/Antigen Screen Non Reactive Non Reactive 08/01/2024 10:11 AM EDT [facility] Comment:Screening for HIV 1 & 2 antibodies, and P24 antigen is NONREACTIVE. No confirmatory testing is required. 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 Yes Care Teams Supervisor Doping Relationship Specialty Start Date End Date Pcp, [facility] [address] [place] [address] PCP - General Family Medicine 07/26/21
--- OUTSIDE RECORDS SUMMARY | 2025-01-23 10:39 | XMS_ITS | Encounter Summary ---
Author Organization [facility] Address [address] [place] [address] Care Team Providers Care Wire Puller Name Role Phone Pcp, No Primary Care Provider UnavailAliya Garzon DEADENER Unavailable UnavailMichaela Nolan LATIN PROFESSOR Unavailable Unavailable Carole Avila DEADENER Unavailable Unavailable Encounter Details Date Type Department Care Team (Late st Contact Info) Description 04/06/2022 Lab Requisition [facility] [address] [place] [address] Emma Obrien MD [address] [address] Encounter for general adult medical examination without abnormal findings Social History Tobacco Use Types Packs/Day Years Used Date Smoking Tobacco: Every Day Cigarettes 18 Started: 2007 Passive Smoke Exposure: Past [...] first t terri in the morning (EYE-MANAGER PROGRAM) to steady your nerves or to get [...] as of this encounter Functional Status * Question Answer Date of Assessment Author Precautions Environmental surveillance 04/09/2022 7:0 0 PM EST Nena Neff RN * Calculated C-SSRS Risk Score (Lifetime/Recent) Answer [...] Simental RN documented as of this encounter Mental Status * Question Answer Entry Date Author Precautions Environmental surveillance 04/09/2022 7:0 0 PM Nena Simental RN documented in this encounter Plan of Treatment [...] Detected Not Detected 04/10/2022 10:21 AM EST [facility] Swab (Axilla and Groin) 04/06/2022 1:18 PM EST 04/06/2022 1:26 PM EST Narrative [facility] - 04/10/2022 10:21 AM EST This PCR assay was developed and its performance characteristics determined by [facility] as appropriate for clinical purposes. This assay has not been cleared or approved by the FDA, but is performed in a CLIA regulated laboratory that is qualified to perform high-complexity testing. This PCR assay was developed and its performance characteristics determined by [facility] as appropriate for clinical purposes. This assay has not been cleared or approved by the FDA, but is performed in a CLIA regulated laboratory that is qualified to perform high-complexity testing. us Emma Luz MD LAB MICROBIOLOGY - GENERAL ORDERABLES Final Result Performing Organization Address City/State/[facility] Co de Phone Number [facility] [address] [place] [id number] documented in this encounter Visit Diagnoses Diagnosis [...] documented as of this encounter Care Teams Wire Puller Relationship Specialty Start Date End Date Pcp, No [address] [place] [phone] PCP - General Family Medicine 07/26/21 Aliya Grimaldo LPN VALUE-BASED TRANSFORMATION PROGRAM None TCM Nurse Internal Medicine 04/25/22 05/25/22 Michaela Babb, LATIN PROFESSORJanet [place] [phone] Hydramatic Specialist Early Childhood Educator Aide 03/15/22 05/21/24 Carole Avila LPN None None TCM Nurse 10/22/24 11/21/24 documented as of this encounter
--- OUTSIDE RECORDS SUMMARY | 2025-01-23 10:39 | XMS_ITS | Encounter Summary ---
Author Organization [facility] Address [address] [place] [address] Care Team Providers Care Movie Producer Name Role Phone Pcp, No Primary Care Provider UnavailCarole Tim LPN Unavailable Unavailable Encounter Details Date Type Department Care Team (Late st Contact Info) Description 08/04/2024 Lab Requisition [facility] [address] [place] [address] Popeye Fernando MD [address] [place] [phone] Encounter for general adult medical examination without [...] answer 05/07/2024 How often do you attend [facility] or yarsani services? Patient unable to answer [...] How often do you attend shinto or yarsani serv ices? Never 07/31/2024 Do [...] hard 07/31/2024 [facility] - Occupational Stress Questionnaire Answer Date [...] in a senior care (including now)? Yes 07/31/2024 CAGE ASSESSMENT Answer [...] drink first t terri in the morning (EYE-PETROLEUM LABORATORY TECHNICIAN) to steady your nerves or to get rid of a hangover? 0 03/16/2022 CAGE Questionnaire Score 0 023 Utilities Answer Date Recorded In the past 12 months has e [employer], gas, oil, or water [employer] threatened to shut off services in your home? No 07/31/2024 Sex and Gender Information Value Date Recorded Sex Assigned at Not on file Legal Sex Male 7:46 PM EDT Gender Identity Not on file Sexual Orientation Not on file documented as of this encounter Functional Status * Question Answer Date of Assessment Author Mir Aspiration 08/07/2024 10:00 PM EDT Juan Medel RN * Calculated C-SSRS Risk Score (Lifetime/Recent) [...] Santiago RN documented as of this encounter Mental Status * Question Answer Entry Date Author Precautions Aspiration 08/07/2024 10:00 PM EDT Juan Medel RN documented in this encounter Plan of [...] ant Staphylococcus aureus(AA) 08/06/2024 7:10 AM EDT [facility] Comment:Previously isolated, still present in culture. Swab (Nares and Annetta Rectal) 08/04/2024 5:45 PM EDT 08/04/2024 6:14 PM EDT Narrative [facility] - 08/06/2024 7:10 AM EDT This test was developed and its performance characteristics determined by the [facility]. Although the media is FDA-approved, it is not FDA-approved for all specimen types submitted. The FDA has determined that such clearance or approval is not necessary. This test is used for surveillance purposes. It should not be regarded as investigational or for research. The [facility] is certified under the Clinical Laboratory Improvement Amendments of 1988 (CLIA-88) as qualified to perform high complexity clinical laboratory testing. us Popeye Fernando MD LAB MICROBIOLOGY - GEN ERAL ORDERABLES Final Result [facility] [address] [place] [address] documented in this encounter Visit Diagnoses Diagnosis [...] documented as of this encounter Care Teams Movie Producer Relationship Specialty Start Date End Date Pcp, No [address] [place] [address] PCP - General Family Medicine 07/26/21 Carole Avila LPN None None TCM Nurse 10/22/24 11/21/24 documented as of this encounter
--- OUTSIDE RECORDS SUMMARY | 2025-01-23 10:39 | XMS_ITS ---
Author Organization [facility] Address [address] [id number] Care Team Providers Care Oreman Name Role Phone Pcp, No Primary Care Provider Unavailabl e Hepatitis C Program Status:Active (Active) Program category:Social Work Start date:03/15/2022 Enrollment date:03/15/2022 Enrollment reason:HCV Continued Care and Services Coordination
--- OUTSIDE RECORDS SUMMARY | 2025-01-23 10:39 | XMS_ITS | Encounter Summary ---
Author Organization [facility] Address [address] [place] [address] Care Team Providers Care Solid Waste Analyst Name Role Phone Pcp, No Primary Care Provider Unavailabl e Encounter Details Date Type Department Care Team ([facility] Contact Info) Description 01/20/2025 Orders Only [facility] Bone & Mineral Metabolism [address], [address] [place] [address] Katlyn Cano PA [address] [place] [address] Social History Tobacco Use Types [...] How often do you attend chur or adventist services? Patient unable to answer 05/07/2024 Do you belong to any clubs o r organizations such as worship groups, unions, fraternal or athletic groups, or [...] Never 07/31/2024 How often do you attend worship or adventist serv ices? Never 07/31/2024 Do you belong to any clubs o r organizations such as worship groups, unions, fraternal or athletic groups, or [...] medical care, and heating? Very hard 07/31/2024 [facility] [place] of Occupat ional Health - Occupational Stress [...] time in the past 12 m [facility], were you homeless or living in a long term (including now)? No 10/22/2024 [facility] Utilities Answer Date Recorded In [...] drink first t terri in the morning (EYE-STEAM GIGGER) to steady your nerves or to get [...] documented as of this encounter Care Teams Solid Waste Analyst Relationship Specialty Start Date End Date Pcp, No [address] [place] [address] PCP - General Family Medicine 07/26/21 documented as of this encounter
--- OUTSIDE RECORDS SUMMARY | 2025-01-23 10:39 | XMS_ITS | Encounter Summary ---
Author Organization [facility] Address [address] [place] [address] Care Team Providers Care Bale Breaker Operator Name Role Phone Pcp, No Primary Care Provider Unavailabl e Encounter Details Date Type Department Care Team ([facility] Contact Info) Description 12/23/2024 Orders Only [facility] Bone [facility] Mineral Metabolism [address], [address] [place] [address] Katlyn Cano PA [address] [place] [address] Social History Tobacco Use Types [...] How often do you attend chur or gnosticism services? Patient unable to answer 05/07/2024 Do you belong to any clubs o r organizations such as yazidism groups, unions, fraternal or athletic groups, or [...] Never 07/31/2024 How often do you attend yazidism or gnosticism serv ices? Never 07/31/2024 Do you belong to any clubs o r organizations such as yazidism groups, unions, fraternal or athletic groups, or [...] medical care, and heating? Very hard 07/31/2024 [facility] [place] of Occupat ional Health - Occupational Stress [...] time in the past 12 m [facility], were you homeless or living in a longterm (including now)? No 10/22/2024 [facility] Utilities Answer Date Recorded In the [...] first t terri in the morning (EYE-PARTS SPECIALIST) to steady your nerves or to [...] documented as of this encounter Care Teams Bale Breaker Operator Relationship Specialty Start Date End Date Pcp, No [address] [place] [address] PCP - General Family Medicine 07/26/21 documented as of this encounter
--- OUTSIDE RECORDS SUMMARY | 2025-01-23 10:39 | XMS_ITS | Encounter Summary ---
Author Organization [facility] Address [address] [place] [address] Care Team Providers Care Apparel Sales Associate Name Role Phone Pcp, No Primary Care Provider Unavailabl Carole Ramsey LPN Unavailable Unavailable Encounter Details Date Type Department Care Team ([facility] st Contact Info) Description 11/07/2024 Telephone [facility] Nephrology, Bone & Mineral Metabolism [address] [place] [address] Emery Pastrana MD [address] [place] [address] Social History Tobacco Use Types [...] answer 05/07/2024 How often do you attend [facility] or bahai services? Patient unable to answer 05/07/2024 Do [...] How often do you attend mormon or bahai serv ices? Never 07/31/2024 Do you belong [...] care, and heating? Very hard 07/31/2024 [facility] of Occupat ional [facility] - Occupational Stress Questionnaire Answer Date Recorded [...] living in a skilled nursing (including now)? No 10/22/2024 [facility] Utilities Answer Date Recorded In the [...] drink first t terri in the morning (EYE-SQL TECH) to steady your nerves or to get rid of a hangover? 0 03/16/2022 CAGE Questionnaire Score 0 023 Sex and Gender Information Value Date Recorded Sex Assigned at Not on file Legal Sex Male 7:46 PM EDT Gender Identity Not on file Sexual Orientation Not on file documented as of this encounter Miscellaneous Notes * Telephone Encounter - Lashay Toleod - 11/07/2024 10:11 AM EDT Clinical Concern/Question Reason for Call: Please call [facility] about patient's medication Best contact number: Other: [phone] Optimal time of day to reach caller: ANYTIME Additional comments/information from caller: Patient seen in dialysis in [place] Note: Please do not reply to this message. Follow-up communication and further actions as a result of this message need to be communicated with the patient directly, if the patient is not active onMyChart. If the patient is active on MyChart, they will receive notification of the communication/outcome via [employer]. documented in this encounter Plan of Treatment [...] documented as of this encounter Care Teams Apparel Sales Associate Relationship Specialty Start Date End Date Pcp, No [address] [place] [address] PCP - General Family Medicine 07/26/21 Carole Avila, SCREEN PRINTING PASTER None None TCM Nurse 10/22/24 11/21/24 documented as of this encounter
--- OUTSIDE RECORDS SUMMARY | 2025-01-23 10:39 | XMS_ITS | Encounter Summary ---
Author Organization [facility] Address [address] [place] [address] Care Team Providers Care Sulfonator Operator Name Role Phone Pcp, No Primary Care Provider Unavailabl e Encounter Details Date Type Department Care Team (Late st Contact Info) Description 11/27/2024 [facility] Outreach [facility] [address] [place] [address] Kalee Cardona Social History Tobacco Use Types [...] How often do you attend chur or christianity services? Patient unable to answer 05/07/2024 Do you belong to any clubs o r organizations such as denominational groups, unions, fraternal or athletic groups, or [...] Never 07/31/2024 How often do you attend denominational or christianity serv ices? Never 07/31/2024 Do you belong to any clubs o r organizations such as denominational groups, unions, fraternal or athletic groups, or [...] medical care, and heating? Very hard 07/31/2024 [facility] [place] of Occupat ional Health - Occupational Stress [...] any time in the past 12 m [facility], were you homeless or living in a custodial (including now)? No 10/22/2024 [facility] Utilities Answer Date Recorded In [...] drink first t terri in the morning (EYE-CRIMP SETTER) to steady your nerves or to get [...] EDT Contact attempt: Attempt 4 since beginning [employer] workflow. SW is attempting to connect pt [...] documented as of this encounter Care Teams Sulfonator Operator Relationship Specialty Start Date End Date Pcp, No [address] [place] [address] PCP - General Family Medicine 07/26/21 documented as of this encounter
--- OUTSIDE RECORDS SUMMARY | 2025-01-23 10:39 | XMS_ITS | Encounter Summary ---
Author Organization [facility] Address [address] [place] [address] Care Team Providers Care Water Supervisor Name Role Phone Pcp, No Primary Care Provider Unavailabl e Encounter Details Date Type Department Care Team (Late st Contact Info) Description 12/03/2024 [facility] [address] [place] [address] Tracee Negrete Social History Tobacco Use Types [...] How often do you attend chur or anabaptism services? Patient unable to answer 05/07/2024 Do you belong to any clubs o r organizations such as pentecostalism groups, unions, fraternal or athletic groups, or [...] Never 07/31/2024 How often do you attend pentecostalism or anabaptism serv ices? Never 07/31/2024 Do you belong to any clubs o r organizations such as pentecostalism groups, unions, fraternal or athletic groups, or [...] medical care, and heating? Very hard 07/31/2024 [facility] [place] [facility] Occupat ional Health - Occupational Stress [...] living in a nursing home (including now)? No 10/22/2024 [facility] Utilities Answer Date Recorded In the past 12 months has e [employer], gas, oil, or water company threatened to [...] drink first t terri in the morning ([employer] SCI[employer] MANAGER) to steady your nerves or to [...] EDT Contact attempt: Attempt 5 since beginning EMUZE workflow. SW is attempting to connect pt to HCV care. Pt was found to have HCV RNA+ result in previous lab history. Outcome of contact attempt is Available Pt. missed 12/02/2024 [facility] appointment and cancelled his 12/18/2024 [facility] appointment. [id number] spoke to pt. Pt. reports that he is in care with his PCP, Dr. Kayden Verduzco, at [facility] in [place], [place]. Next f/u on 06/03/2025 to check [...] documented as of this encounter Care Teams Water Supervisor Relationship Specialty Start Date [place] [address] PCP - General Family Medicine 07/26/21 documented as of this encounter
--- NOTE | 2025-01-23 10:48 | HMH.EDGENADL ---
Discharge Plan Disposition Patient Disposition: Xfer Other Prescriptions Prescriptions: No Action cyclobenzaprine 10 mg tablet 10 mg PO TID PRN (Reason: muscle spasm) Qty: 60 1RF quetiapine 25 mg tablet 25 mg PO HS Qty: 30 2RF nifedipine [Procardia XL] 30 mg tablet extended release 24hr 30 mg PO DAILY Qty: 30 2RF carvedilol 25 mg tablet 25 mg PO BID Qty: 60 5RF gabapentin 100 mg capsule 100 mg PO .Qod Qty: 30 0RF Rx Instructions: After dialysis sessions sevelamer carbonate 800 mg tablet 800 mg PO TID Patient Comments: TAKE 1 TABLET BY MOUTH THREE TIMES A DAY WITH MEALS lisinopril 20 mg tablet 20 mg PO DAILY Qty: 30 0RF pantoprazole 40 mg tablet,delayed release (DR/EC) 40 mg PO DAILY Qty: 30 0RF Lokelma 10 gram powder in packet PO Referrals Follow up/Referrals: Kayden Verduzco DO [Primary Care Provider, [facility]] - See instructions Clinical Impressions Clinical Impression: Abdominal pain, End-stage renal disease (ESRD), Ascites, Acute hyperkalemia, Pancreatitis Stand Alone Forms Stand Alone Forms: Transfer Record - ED Instructions Patient Instructions: DI for Acute Abdominal Pain Print Language Print Language: Nepalese Discharge ED Provider: Lashell Marrero General Adult HPI General Chief complaint: Abdominal Pain Stated complaint: chest pain Time Seen by Provider: 01/23/25 10:39 Mode of Arrival: Wheelchair Source of Information: Patient Description of Symptoms (Recalled from ER Triage Doc. by RN): Patient states he has had generalized abdominal pain radiating up into chest for 2 days. States he was just discharged from [facility] a week ago for appendicitis, but did not have appendix removed. Patient states he needs a paracentesis. Patient states he does hemodialysis on , , Sat and did go yesterday. History of Present Illness HPI narrative: Patient is a 45-year-old male with a history of end-stage renal disease dialyzes Sunday had normal dialysis yesterday to the port in his right chest also has end-stage liver disease who presents today with abdominal pain. Has had 2 evaluations in our emergency department both times diagnosed with acute pancreatitis and ultimately transferred to [place] where he gets dialysis. He is followed by Dr. Jeffries Believes that he is having similar symptoms today went to his primary care doctor with nausea vomiting diarrhea abdominal pain and states that it feels very similar. No fevers or chills etc. Related Data Home Medications ?Medication ?Instructions ?Recorded ?Confirmed sevelamer carbonate 800 mg tablet 800 mg PO TID 11/21/24 01/23/25 sodium zirconium cyclosilicate 10 g PO 01/23/25 01/23/25 gram oral powder packet (Lokeltx) Previous Rx's ?Medication ?Instructions ?Recorded lisinopril 20 mg tablet 20 mg PO DAILY #30 tabs 11/21/24 pantoprazole 40 mg tablet,delayed 40 mg PO DAILY #30 tabs 11/21/24 release carvedilol 25 mg tablet 25 mg PO BID #60 tabs 01/09/25 cyclobenzaprine 10 mg tablet 10 mg PO TID PRN muscle spasm #60 01/09/25 tabs nifedipine 30 mg tablet,extended 30 mg PO DAILY #30 tabs 01/09/25 release 24 hr (Procardia XL) quetiapine 25 mg tablet 25 mg PO HS #30 tabs 01/09/25 gabapentin 100 mg capsule 100 mg PO .Qod #30 caps 01/14/25 Allergies Allergy/AdvReac Type Severity Reaction Status Date / Time Erythromycin Allergy Unknown NA-NAUSEA/V Uncoded 01/23/25 09:44 OMITING PFSH PFSH Disclaimer: The information contained in this section may have been updated after the patient was seen, as this information can be updated by other users. Medical History GERD (gastroesophageal reflux disease) Liver failure Heart failure Hypertension CKD (chronic kidney disease) stage 4, GFR 15-29 ml/min Surgical History H/O endoscopy Social History Smoking Status: Current every day smoker tobacco type: cigarettes packs per day: 1 smoking status start date: 17 yo alcohol intake: never substance use type: former substance user, crack/cocaine, heroin and opiates current occupational status: unemployed Travel in the last 8 weeks?: None Have you lived/traveled outside US in past 30 days?: No Contact w/someone who lives/traveled outside US past 30 days?: No Exposure to someone with infectious disease in past 14 days?: No Do you have a fever (greater than 100.4 F or 38 C)?: No Have you tested positive for COVID-19?: No Exposed to someone with COVID-19 in past 14 days?: No Do you have a sore throat?: No Do you have a cough?: No Do you have any weakness?: No Do you have any diarrhea?: No Are you experiencing any unusual bleeding?: No Do you have any muscle aches/pain?: No Do you have any abdominal pain?: No Are you experiencing loss of taste or smell?: No Other Medical History Have you received the Pneumonia Vaccine: No ROS Obtained: Yes All systems reviewed & no additional complaints except as documented Physical Exam General General appearance: alert Respiratory Respiratory exam: Present normal lung sounds bilaterally Cardiovascular Cardiovascular exam: Present regular rate Abdominal Exam Abdominal exam: Present soft and tenderness (Diffuse abdominal tenderness including epigastric tenderness); Absent distention Neurological Exam Neurological exam: Present alert and oriented X3 Medical Decision Making Medical Records Screening: Per USPSTF and CDC recommendations, given the prevalence of disease in our region, it is our hospital?s policy to screen for HIV and viral Hepatitis for all patients aged 18 and over and those with ongoing risk factors. Christopher Inquiry Pt receiving controlled substance: No Vital Signs: 01/23/25 10:32 01/23/25 10:58 01/23/25 11:00 Temperature 98.5 F Temperature Source Oral Pulse Rate 110 H 109 H Pulse Rate [Right Brachial] 109 H Respiratory Rate 17 Blood Pressure 201/146 H 199/150 H Blood Pressure [Right Arm] 199/147 H Blood Pressure Mean [Right Arm] 164 Blood Pressure Source [Right Arm] Automatic Cuff Blood Pressure Position [Right Arm] Sitting 02 Sat by Pulse Oximetry 95 95 95 Oxygen Delivery Method Room Air 01/23/25 11:30 01/23/25 12:00 Temperature Temperature Source Pulse Rate 109 H 110 H Pulse Rate [Right Brachial] Respiratory Rate Blood Pressure 198/138 H 175/113 H Blood Pressure [Right Arm] Blood Pressure Mean [Right Arm] Blood Pressure Source [Right Arm] Blood Pressure Position [Right Arm] 02 Sat by Pulse Oximetry 93 L 91 L Oxygen Delivery Method Lab Data Lab Results 01/23/25 10:30: WBC 9.0, RBC 4.25 L, Hgb 12.1 L, Hct 37.6 L, MCV 88.5, MCH 28.5, MCHC 32.2, RDW 15.4, Plt Count 283, MPV 9.8, Neut % (Auto) 71.2, Lymph % (Auto) 15.6, Bracken % (Auto) 9.3, Eos % (Auto) 2.9, Baso % (Auto) 0.6, Neut # (Auto) 6.4, Lymph # (Auto) 1.4, Bracken # (Auto) 0.8, Eos # (Auto) 0.3, Baso # (Auto) 0.1, PT 11.2, INR 1.01, Sodium 137, Potassium 6.9 H*, Chloride 103, Carbon Dioxide 19 L, Anion Gap 21.9 H, BUN 73 H, Creatinine 6.30 H, Estimated Creat Clear 16, Estimated GFR 10 L*, Est GFR ( Amer) 12 L*, Glucose 99, Calcium 9.9, Total Bilirubin 0.7, AST 25, ALT 14, Alkaline Phosphatase 93, Troponin I 0.09 H, Total Protein 8.6 H, Albumin 4.6, Globulin 4.0 H, Albumin/Globulin Ratio 1.2, Lipase 625 H 01/23/25 11:00: Lactate 0.9 01/23/25 10:30 01/23/25 10:30 Orders (Tests/Meds): ED MEDICATIONS Generic Name Dose Route Start Last Admin Trade Name Freq PRN Reason Stop Dose Admin Calcium Gluconate/Sodium Chloride 1 gm in 50 mls @ 50 mls/hr 01/23/25 11:49 01/23/25 12:10 Calcium Gluconate 1,000mg/50ml Nacl Premix IV 01/23/25 12:48 50 mls/hr ONCE ONE Administration Discontinued Medications Generic Name Dose Route Start Last Admin Trade Name Freq PRN Reason Stop Dose Admin Albuterol Sulfate 20 mg 01/23/25 11:47 01/23/25 12:10 Albuterol 0.083% 2.5 Mg/3 Ml Neb IH 01/23/25 11:48 20 mg ONCE ONE Administration Dextrose 25 ml 01/23/25 11:47 01/23/25 12:10 Dextrose 50% 50ml Syringe (Crash Cart) IVP 01/23/25 11:48 25 ml ONCE ONE Administration Insulin Human Regular 10 unit 01/23/25 11:47 01/23/25 12:11 Insulin Human Regular 100 Units/Ml 10ml Vial IVP 01/23/25 11:48 10 unit ONCE ONE Administration Morphine Sulfate 4 mg 01/23/25 10:49 01/23/25 10:55 Morphine 4mg/Ml Syringe IV 01/23/25 10:50 4 mg ONCE ONE Administration Ondansetron HCl 4 mg 01/23/25 10:49 01/23/25 10:55 Ondansetron 4mg/2ml Vial IV 01/23/25 10:50 4 mg ONCE ONE Administration Sodium Zirconium Cyclosilicate 10 gm 01/23/25 11:55 01/23/25 12:11 Lokelma 5gm Packet PO 01/23/25 11:56 10 gm ONCE ONE Administration ORDERS Category Date Time Status CT abdomen pelvis wo con Stat Cat Scan 01/23/25 10:49 Taken POCUS Point of Care (ER Only) Stat Exams 01/23/25 10:42 Completed CBC w/Auto Diff [Complete Blood Count Auto Diff] Stat Lab 01/23/25 10:30 Completed CMP [Comprehensive Metabolic Panel] Stat Lab 01/23/25 10:30 Completed Lactic Acid Stat Lab 01/23/25 11:00 Completed Lipase Stat Lab 01/23/25 10:30 Completed PT INR [Prothrombin Time INR] Stat Lab 01/23/25 10:30 Completed Trop I [Troponin I] Stat Lab 01/23/25 10:30 Completed Troponin I Q3H Lab 01/23/25 14:00 Ordered Troponin I Q3H Lab 01/23/25 17:00 Ordered Medical Decision Narrative: 45-year-old above history and physical differential includes acute pancreatitis SBP bowel obstruction malignancy etc. I did a bedside ultrasound and there is ascites very very small amount likely too dangerous to do a diagnostic tap certainly does not need a therapeutic tap at the moment. Will get a noncontrasted CT scan labs including a lipase administer pain medicine nausea medicine and reassess. Reassessment 1209 patient has significant hyperkalemia with a potassium of 6.9 nonhemolyzed. EKG was performed I personally interpreted shows peaked T waves but no QRS prolongation or dropped P waves. Will treat with insulin calcium albuterol Lokelma as dialysis not immediately available. However no significant QRS prolongation patient remains stable at the moment. Patient will need to be transferred for this alone but also has an elevated lipase 2 times upper limit of normal has been transferred with similar values and ultimately diagnosed with pancreatitis this seems to be recurrence or chronic abnormality. CT scan performed showed personally interpreted shows nonspecific fluid filled bowel consistent with enteritis and low volume ascites. Will not tap for SBP as stated above. Will call [facility] for transfer given the fact that patient needs dialysis and we do not have those capabilities here at [facility]. Update 12:26 PM patient was accepted by Dr. Pearson to be transferred to [facility]. Procedures Miscellaneous Procedure Procedure Performed: Limited abdominal ultrasound Indication evaluate for possible ascites in the setting of liver failure and abdominal pain Findings patient had a small amount of ascites bowel wall is near adherent to the abdominal wall making the need for diagnostic paracentesis very dangerous but not completely ruled out Images were saved Critical Care Critical Care Time Critical Care Time: Yes Attestation: On 01/23/25, the high probability of a clinically significant, sudden or life threatening deterioration of the following system(s) required my full and direct attention, intervention and personal management. The time I documented below is in addition to time spent performing reported procedures but includes the following listed in this critical care notation. Total Time Total Critical Care Time: 35
--- NOTE | 2025-01-23 10:49 | CT_ITS ---
FINAL REPORT TECHNIQUE: Axial images through the abdomen and pelvis were performed without contrast. This study was performed with techniques to keep radiation doses as low as reasonably achievable, (ALARA). Individualized dose reduction techniques using automated exposure control or adjustment of mA and/or kV according to the patient's size were employed. CLINICAL HISTORY: diffuse abd pain, maximally epigastric COMPARISON: 01/09/2025 FINDINGS: Abdomen: There is a small left pleural effusion. Overlying atelectasis is noted. The liver parenchyma is homogeneous. The gallbladder is present. Mild ascites is seen throughout the upper abdomen. The spleen appears unremarkable. There are few small scattered calcifications throughout the pancreas, likely sequela from chronic pancreatitis. Adrenal glands and kidneys are unremarkable. There are multiple fluid-filled loops of small bowel, some of which demonstrate abnormal mucosal thickening particularly in the jejunum. This finding is well seen on images 51-55 of series 3. Pelvis: The urinary bladder is incompletely distended. The appendix is unremarkable. There is a moderate amount of free fluid in the pelvis. IMPRESSION: Ascites with fluid-filled loops of small bowel and associated mucosal thickening of the jejunum, likely related to underlying infectious or inflammatory enteritis. Correlate clinically. Reviewed, Interpreted and Dictated by Kaleb Albert MD Transcribed by Kendra Stokes Authenticated and [facility]
[2025-01-23] MEDS: MORPHINE 4MG/ML SYRINGE 4 MG IV ×3 (10:55→16:36)
[2025-01-23] MEDS: ONDANSETRON 4MG/2ML VIAL 4 MG IV (10:55)
[2025-01-23 10:58] LABS: Hematocrit 37.6 % (42.0-52.0); Hemoglobin 12.1 g/dL (14.1-18.0); Immature Granulocytes % 0.4 %; Mean Corpuscular HGB Conc 32.2 g/dL (31.8-35.4); Mean Corpuscular Hemoglobin 28.5 pg (27.0-31.2); Mean Corpuscular Volume 88.5 fl (80-94); Nucleated Red Blood Cells % 0 %; Platelet Count 283 K/mm3 (142-424); Red Blood Count 4.25 M/mm3 (4.60-6.20); Red Cell Distribution Width-SD 50.0 fL; White Blood Count 9.0 K/mm3 (4.8-10.8)
[2025-01-23 11:04] LABS: Chloride 103 mmol/L (98-107)
[2025-01-23 11:05] LABS: Albumin Level 4.6 g/dl (3.5-5.0); Sodium 137 mmol/L (136-145)
[2025-01-23 11:07] LABS: Blood Urea Nitrogen 73 mg/dl (9-20); Creatinine Clearance Estimated 16 mL/min (50-200); Estimated Glomerular Filt Rate 10 ml/min (>60); GFR (African American) 12 ML/MIN (>60)
[2025-01-23 11:08] LABS: Alanine Aminotransferase 14 U/L (12-78); Albumin/Globulin Ratio 1.2 (1.1-1.8); Alkaline Phosphatase 93 U/L (38-126); Anion Gap 21.9 mEq/L (5-15); Aspartate Amino Transferase 25 U/L (17-59); Bilirubin,Total 0.7 mg/dl (0.2-1.3); Calcium 9.9 mg/dl (8.4-10.2); Carbon Dioxide 19 mmol/L (22.0-30.0); Globulin 4.0 g/dL (1.3-3.2); Glucose 99 mg/dl (74-100); Total Protein,Serum 8.6 g/dl (6.3-8.2)
[2025-01-23 11:15] LABS: INR 1.01 (0.9-1.1); Prothrombin Time 11.2 seconds (10.1-12.5)
[2025-01-23 11:16] LABS: Lipase 625 U/L (23-300)
--- NOTE | 2025-01-23 11:17 | PC.NURSE ---
Dr. Marrero notified of Lipase of 625.
[2025-01-23 11:20] LABS: Creatinine,Serum 6.30 mg/dl (0.66-1.25); Potassium 6.9 mmoL/L (3.5-5.1); Troponin I 0.09 ng/ml (0.00-0.034)
[2025-01-23] MEDS: DEXTROSE 50% 50ML SYRINGE (CRASH CART) 25 ML IVP ×2 (12:10→13:19)
[2025-01-23] MEDS: CALCIUM GLUC IN NACL, ISO-OSM 1 GM/50 ML BAG IV (12:10)
[2025-01-23] MEDS: ALBUTEROL 0.083% 2.5 MG/3 ML NEB 20 MG IH (12:10)
[2025-01-23] MEDS: LOKELMA 5GM PACKET 10 GM PO (12:11)
[2025-01-23] MEDS: INSULIN HUMAN REGULAR 100 UNITS/ML 10ML VIAL 10 UNIT IVP (12:11)
--- NOTE | 2025-01-23 13:14 | PC.NURSE ---
FSBS 58. RN aware. ordered pt a food tray. pt drinking pop at this time
[2025-01-23 14:17] LABS: Troponin I 0.08 ng/ml (0.00-0.034)
--- NOTE | 2025-01-23 14:31 | PC.NURSE ---
Repeat glucose 153
--- NOTE | 2025-01-23 16:15 | PC.NURSE ---
Attempted to call report to [facility]. While finishing report with the nurse she stated that because his blood pressure was elevated that she didn't think she could have him as a patient on the Med Surg floor and would be calling their Environmental Health Officer to see what to do and would call me back.
--- NOTE | 2025-01-23 16:19 | PC.NURSE ---
Called and spoke with Kendra the night warehouse selector at [facility]. States it is good to go and to send the patient on to them.
== END 2025-01-23 17:36 | disposition other institution (70) ==
PROVIDERS: Emergency Provider Student in an Organized Health Care Education/Training Program; PCP Internal Medicine
DX: E87.5 Hyperkalemia (principal); R10.13 Epigastric pain; R07.9 Chest pain, unspecified; R10.84 Generalized abdominal pain; N18.6 End stage renal disease; R18.8 Other ascites; K85.90 Acute pancreatitis without necrosis or infection, unspecified; R74.8 Abnormal levels of other serum enzymes; F17.210 Nicotine dependence, cigarettes, uncomplicated; I12.0 Hypertensive chronic kidney disease with stage 5 chronic kidney disease or end stage renal disease
CPT/HCPCS: 74176; 80053; 83605; 83690; 84484; 85025; 85610; 93005; 96365; 96375; 96376; 99285; 99291; J0612; J2270; J2405